=== PATIENT | male | born 1950 | race Caucasian/White ===

== ENCOUNTER → 2016-06-02 | Outpatient (CLI) | payer MEDICARE, MEDICAID ==
[~2016-06-02] MED LIST: /AUGM25TA OR; /FENT50PA TD; FLEXERIL PO; HYDROCODONE PO; OXYCODONE PO; PERC5TAB8 OR; PRED10TA2 OR; PRED5TAB OR; VICO5TAB PO
[2016-06-02 20:05] LABS: ANION GAP 6 MEQ/L (8-16); BLOOD UREA NITROGEN 14 MG/DL (7-18); CALCIUM LEVEL 8.8 MG/DL (8.8-10.2); CARBON DIOXIDE LEVEL 33 MEQ/L (21-32); CHLORIDE LEVEL 99 MEQ/L (98-107); CREATININE FOR GFR 0.97 MG/DL (0.70-1.30); GLOMERULAR FILTRATION RATE > 60.0 (>49); GLUCOSE, FASTING 90 MG/DL (80-110); POTASSIUM SERUM 4.7 MEQ/L (3.5-5.1); SODIUM LEVEL 138 MEQ/L (136-145)
== END ==
LOC: M SMT 14:59
PROVIDERS: ATTEND Nurse Practitioner Family
DX: R31.9 Hematuria, unspecified (principal)
CPT/HCPCS: 36415; 80048; 81001; 87086; 88108; G0463

== ENCOUNTER → 2016-06-09 | Outpatient (CLI) | payer MEDICARE, MEDICAID ==
[~2016-06-09] MED LIST changes: +ISOVUE-370 76% 100ML VIAL (Q9967) As Ordered ONE
--- NOTE | 2016-06-09 15:19 | REP ---
CT STUDY OF THE ABDOMEN AND PELVIS WITHOUT AND WITH IV CONTRAST: CT UROGRAM. HISTORY: Hematuria. COMPARISON STUDY: May 02, 2015. CT CONTRAST DOSE: 100 mL of Isovue-370 is administered intravenously by autoinjector. CT FINDINGS: Preliminary digital allied health professional radiograph demonstrates an infiltrate in the left lung base. Lung window axial CT images confirm this, consistent with pneumonia. It is a little larger, more pronounced than on May 02, 2015, although not new. The liver and the spleen are unremarkable on pre- and postcontrast images. No adrenal lesion is seen. Gallbladder and pancreas have unremarkable appearance. There is no evidence of intrarenal calculus on either side. There is minimal fullness of the intrarenal collecting system, left greater than right. No significant hydronephrosis seen. Ureters describe a normal course to the urinary bladder. Emptying ureteral jets are observed bilaterally. No bladder mass lesion is seen. Heavy vascular calcification is seen in the aorta and its major branches. No bony destructive lesion is seen. There is moderate formed stool in the proximal colon. No obstruction is seen in the gastrointestinal tract. No abdominal wall defect noted. IMPRESSION: 1. Fairly large dense infiltrate in the left lower lobe, consistent with pneumonia. This is more prominent than on the May 02, 2015 prior study. I note that this is described on PET/CT from June 01, 2014. Chronic gradually progressive infiltrate could be a malignancy versus recurrent or persistent pneumonia. 2. No evidence of renal stone, mass, cyst, or significant hydronephrosis. No urinary tract calculus seen. 3. Moderate stool in the colon. No obstructive lesion seen. Signed by Gunner Camara MD 06/09/2016 03:22 P
== END ==
LOC: M RAD 13:41
PROVIDERS: ATTEND Nurse Practitioner Family
DX: R31.9 Hematuria, unspecified (principal); R91.8 Other nonspecific abnormal finding of lung field
CPT/HCPCS: 74178; Q9967

== ENCOUNTER → 2016-06-24 | Outpatient (CLI) | payer MEDICARE, MEDICAID ==
--- NOTE | 2016-06-24 15:15 | REP ---
Clinical: Abnormal chest x-ray. Technique: Axial contrast enhanced images from the thoracic inlet to the upper abdomen using 100 ml Isovue 370 intravenous contrast material with coronal and sagittal re-formations. Comparison: 06/09/2016, 05/02/2015. Findings: Alveolar and reticulonodular infiltrates are appreciated primarily involving the left lower lobe and adjacent posterior left upper lobe with scattered nodular densities and 4.5 cm left lower lobe consolidation/mass which appears to be progressively increased when compared to prior examinations. Left hilar lymph nodes are identified measuring up to 1 cm along with mucus and debris in the left lower lobe bronchi. Remainder of lung chaidez demonstrate chronic emphysematous change. No pleural effusion. No pneumothorax. Atherosclerotic changes to the thoracic aorta and coronary arteries noted without cardiomegaly or pericardial effusion. Upper abdomen is unremarkable. Surrounding musculoskeletal structures demonstrate degenerative changes. Impression: 4.5 cm area of consolidation in the left lower lobe with smaller surrounding nodular densities and diffuse reticulonodular infiltrative pattern. Findings have progressed since 2014. Differential diagnosis would include recurrent area of pneumonia as well as malignancy. Signed by Meir Dominguez MD 06/24/2016 03:07 P
== END ==
LOC: M RAD 14:24
PROVIDERS: ATTEND Family Medicine
DX: R93.8 Abnormal findings on diagnostic imaging of other specified body structures (principal)
CPT/HCPCS: 71260; Q9967

== ENCOUNTER → 2016-07-21 | Outpatient (CLI) | payer MEDICARE, MEDICAID ==
[~2016-07-21] MED LIST changes: +ALBUTEROL SULFATE 2.5 MG/0.5 ML INH NEB SOLN INH ONE; +D5W 1,000 ML IV SCH; +EPINEPHrine 1MG/10ML SYRINGE 1.5IN As Ordered ONE; -ISOVUE-370 76% 100ML VIAL (Q9967) As Ordered ONE; +LEVO25TA5 PO; +LIDOCAINE 1% MDV 20ML VIAL As Ordered ONE; +LIDOCAINE 4% INJ 5 ML AMP As Ordered ONE; +LIDOCAINE 4% INJ 5 ML AMP INH ONE; +LIDOCAINE VISCOUS 2% SOLN 15ML UDC As Ordered ONE; +MIDAZOLAM INJ 2 MG/2 ML VIAL (J2250) As Ordered ONE; +PERC10TA17 PO; +SPIR1AER PO; +SYMB16INH INH; +fentaNYL 100 MCG/2 ML INJECTION (J3010) As Ordered ONE
--- NOTE | 2016-07-21 10:22 | RO ---
DATE OF PROCEDURE: 07/21/2016 PREOPERATIVE DIAGNOSIS: Abnormal chest CT, left lower lobe infiltrate/mass. POSTOPERATIVE DIAGNOSIS: Abnormal chest CT, left lower lobe infiltrate/mass. PROCEDURE: Bronchoscopy with bronchoalveolar lavage and transbronchial biopsies of the left lower lobe of the lung. SURGEON: Dr. Todd Blackwood UX DEVELOPER: None. ANESTHESIA: 6 mg of IV Versed, 75 mg of IV fentanyl and 360 mg of topical lidocaine. FINDINGS: Poolings of secretions in the left mainstem. SPECIMENS OBTAINED: 1. Bronchoalveolar lavage left lower lobe. 2. Transbronchial biopsy left lower lobe. There were no observed complications. A postprocedure chest x-ray is pending. DESCRIPTION OF PROCEDURE: After informed consent was reviewed with the patient, he was brought back to the bronchoscopy suite. The posterior airway was then anesthetized with 4% lidocaine. The left nares was then also anesthetized with lidocaine gel. After adequate anesthetization of the oropharynx, a time-out was performed with two patient identifiers, identifying correct site and correct procedure. Conscious sedation was then initiated with Versed and fentanyl. The P180 bronchoscope was then inserted through the left nares. There were large amounts of thick mucus which were suctioned. There were post radiation changes of the posterior pharynx. The vocal cords did approximate normally. 1% lidocaine was used to anesthetize the vocal cords. The scope was then advanced into the airway. Trachea was midline. Of note, no significant cough reflex upon entering the trachea. All airways were anesthetized with lidocaine. It was noted that all the secretions pooled in the left lower lobe and left mainstem bronchus. All airways were suctioned. RB 1 through 10 10 was suctioned. RV 1 through 3 was normal without endobronchial lesions; however, there was significant banding pitting. No endobronchial lesions RV 4 through 10. Right mainstem bronchus was normal. Left mainstem bronchus was otherwise normal except for the pooling of secretions. LB 1 through 10 was normal without endobronchial lesions. I then advanced the scope into the left lower lobe posterior segment and performed bronchoalveolar lavage. After this was performed, transbronchial biopsies were taken of the left lower lobe in the posterior and lateral basal segments. After all this was obtained and hemostasis was assured, the bronchoscope was removed. Total fluoro time was 56 seconds. No observed complications. A postprocedure chest x-ray is pending. [facility]
[2016-07-21 10:51] VITALS: BP 103/62
--- NOTE | 2016-07-21 11:37 | REP ---
Portable chest x-ray: Two sitting AP views. History: Status post bronchoscopy. Question pneumothorax. Findings: There is an infiltrate behind the heart in the left base again noted. There is no evidence of pneumothorax or hydrothorax. No pneumomediastinum is seen. Impression: Left base infiltrate unchanged. No pneumothorax seen. Signed by Gunner Camara MD 07/21/2016 12:28 P
== END | disposition home or self-care (01) ==
LOC: M OPP 08:31
PROVIDERS: ATTEND Internal Medicine Pulmonary Disease
DX: R91.8 Other nonspecific abnormal finding of lung field (principal); E03.9 Hypothyroidism, unspecified; J43.1 Panlobular emphysema; K21.9 Gastro-esophageal reflux disease without esophagitis; Z87.891 Personal history of nicotine dependence; Z91.040 Latex allergy status; Z80.1 Family history of malignant neoplasm of trachea, bronchus and lung
CPT/HCPCS: 31624; 71010; 76000; 87070; 87205; 88108; 88305; 88313; 94640; J2250; J3010

== ENCOUNTER → 2016-09-16 | Outpatient (CLI) | payer MEDICARE, MEDICAID ==
[~2016-09-16] MED LIST changes: -ALBUTEROL SULFATE 2.5 MG/0.5 ML INH NEB SOLN INH ONE; -D5W 1,000 ML IV SCH; -EPINEPHrine 1MG/10ML SYRINGE 1.5IN As Ordered ONE; +FENT25PA TD; -LIDOCAINE 1% MDV 20ML VIAL As Ordered ONE; -LIDOCAINE 4% INJ 5 ML AMP As Ordered ONE; -LIDOCAINE 4% INJ 5 ML AMP INH ONE; -LIDOCAINE VISCOUS 2% SOLN 15ML UDC As Ordered ONE; -MIDAZOLAM INJ 2 MG/2 ML VIAL (J2250) As Ordered ONE; +SPIR1CAP INH; +[UNRECOGNIZED DRUG - CODE] GT; -fentaNYL 100 MCG/2 ML INJECTION (J3010) As Ordered ONE
--- NOTE | 2016-09-16 18:11 | REP ---
CT CHEST WITHOUT CONTRAST: REASON: Followup abnormal 4.5 cm sized opacity in the left lower lobe felt to have increased in sized from lung base images obtained 05/02/2015 which have been reviewed along with all prior chest CT's. The lack of intravenous contrast decreases the sensitivity of the exam. Prominent nonenlarged mediastinal and hilar lymph nodes are again noted unchanged from 06/24/2016. There are no pleural or pericardial effusions. The imaged upper abdomen has changed from the prior images of 06/24/2016 in that there is now a PEG tube. The osseous structures are unchanged. Evaluation of the lung chaidez again show a heavy area of consolidation with surrounding patchy opacities and asymmetric densities in the left lower lobe. The appearance of which has shown some improvement compared to the latest prior of 06/24/2016. Other scattered patch opacities are seen throughout the lung chaidez and in conjunction with cylindrical bronchiectasis in the upper and lower lobes bilaterally. No new abnormal nodules seem to have developed. New asymmetric densities have developed in the inferior right middle lobe compared to the latest. IMPRESSION: 1. Seemingly improved left lower lobe opacity as described above. 2. Bronchiectasis. 3. Chronic lung field changes. 4. New inferior right middle lobe opacities. Continued followup is recommended. There is no revised Fleischner's society criteria on the recommendation for followup of such abnormalities. Signed by Vincent Murray DO 09/17/2016 10:20 A
== END ==
LOC: M RAD 10:37
PROVIDERS: ATTEND Internal Medicine Pulmonary Disease
DX: R91.8 Other nonspecific abnormal finding of lung field (principal)

== ENCOUNTER → 2016-09-29 | Outpatient (REF) | payer MEDICARE, MEDICAID | LOC: M LAB REF 17:00 | PROVIDERS: ATTEND Internal Medicine Pulmonary Disease | DX: R05 Cough (principal) ==

== ENCOUNTER → 2016-11-10 | Outpatient (CLI) | payer MEDICARE, MEDICAID ==
[~2016-11-10] MED LIST changes: +ALBU83IN INH; +FULLMIS XX; -PERC10TA17 PO; +PERC10TA26 PO; +PRED20TA PO
--- NOTE | 2016-11-10 11:13 | REP ---
Clinical: Cough. Technique: PA and lateral. Comparison: 08/17/2016. Findings: Mediastinum and cardiac silhouette are normal. Lung chaidez demonstrate chronic interstitial changes with left lower lobe/retrocardiac infiltrate similar to prior examination. No effusion, or pneumothorax. Skeletal structures intact. Impression: Chronic interstitial changes and left lower lobe/retrocardiac infiltrate similar to prior examination. If the patient remains symptomatic consider chest CT with contrast for further investigation.
== END ==
LOC: M CLY 09:42
PROVIDERS: ATTEND Family Medicine
DX: R05 Cough (principal)

== ENCOUNTER → 2016-11-21 | Outpatient (REF) | payer MEDICARE, MEDICAID ==
[2016-11-21 20:14] LABS: THYROXINE (T4) 9.5 UG/DL (4.5-12.0)
[2016-11-21 21:32] LABS: BASO # 0.1 K/mm3 (0.0-0.2); BASO % 1.3 % (0.0-1.0); EOS # 0.1 K/mm3 (0.0-0.50); EOS % 1.8 % (0.0-3.0); LARGE UNSTAINED CELL # 0.2 K/mm3 (0.0-0.4); LARGE UNSTAINED CELL % 2.7 % (0.0-4.0); LYMPH # 0.4 K/mm3 (1.5-4.5); LYMPH % 7.6 % (24.0-44.0); MEAN CORPUSCULAR HEMOGLOBIN 32.4 pg (27.0-33.0); MEAN CORPUSCULAR HGB CONC 32.5 g/dl (32.0-36.5); MEAN CORPUSCULAR VOLUME 99.9 fl (80.0-96.0); MONO # 0.6 K/mm3 (0.0-0.8); MONO % 11.3 % (0.0-5.0); NEUTROPHILS # 4.1 K/mm3 (1.8-7.7); NEUTROPHILS % 75.3 % (36.0-66.0); PLATELET COUNT, AUTOMATED 200 k/mm3 (150-450); RED CELL DISTRIBUTION WIDTH 13.9 % (11.5-14.5); WHITE BLOOD COUNT 5.4 K/mm3 (4.0-10.0)
== END ==
LOC: M SFHCCLAY 12:06
PROVIDERS: ATTEND Family Medicine
DX: J44.9 Chronic obstructive pulmonary disease, unspecified (principal); E03.9 Hypothyroidism, unspecified

== ENCOUNTER → 2016-11-21 | Outpatient (CLI) | payer MEDICARE, MEDICAID ==
--- NOTE | 2016-11-21 14:14 | REP ---
Chest x-ray: Two views. History: Cough. Acute exacerbation of chronic disease. Comparison study: November 10, 2016. Findings: The lungs are symmetrically aerated and free of infiltrate. The pleural angles are sharp. Heart size is normal. The aorta is calcific and a little tortuous. Pulmonary vascular markings are not increased. There are some degenerative changes in the thoracic spine. Impression: No active disease.
== END ==
LOC: M CLY 13:13
PROVIDERS: ATTEND Family Medicine
DX: J44.1 Chronic obstructive pulmonary disease with (acute) exacerbation (principal); E03.9 Hypothyroidism, unspecified
CPT/HCPCS: 71020; 84436; 84443; 84480; 85025; G0463

== ENCOUNTER 2016-12-19 07:52 | Emergency (ER) | payer MEDICARE, MEDICAID ==
[~2016-12-19] VITALS: Ht 170.2 cm; Wt 59.5 kg
[~2016-12-19 07:52] MED LIST changes: -ALBU83IN INH; -FULLMIS XX; -PRED20TA PO
[2016-12-19] MEDS ORDERED: ALBUTEROL SULFATE 2.5 MG/0.5 ML INH NEB SOLN INH ONE (08:30)
[2016-12-19] MEDS ORDERED: IPRATROPIUM 0.5MG/ALBUTEROL 2.5MG INH SOL UD 3ML (DUONEB)(J7620) NEB ONE (08:30)
[2016-12-19 08:36] LABS: BASO % 0.8 % (0.0-1.0); EOS # 0.3 K/mm3 (0.0-0.50); EOS % 4.5 % (0.0-3.0); LARGE UNSTAINED CELL # 0.1 K/mm3 (0.0-0.4); LARGE UNSTAINED CELL % 1.8 % (0.0-4.0); LYMPH # 0.7 K/mm3 (1.5-4.5); MEAN CORPUSCULAR HEMOGLOBIN 32.4 pg (27.0-33.0); MEAN CORPUSCULAR HGB CONC 33.1 g/dl (32.0-36.5); MONO # 0.5 K/mm3 (0.0-0.8); MONO % 7.4 % (0.0-5.0); NEUTROPHILS # 5.1 K/mm3 (1.8-7.7); NEUTROPHILS % 76.5 % (36.0-66.0); PLATELET COUNT, AUTOMATED 155 k/mm3 (150-450); RED CELL DISTRIBUTION WIDTH 14.2 % (11.5-14.5); WHITE BLOOD COUNT 6.6 K/mm3 (4.0-10.0)
--- NOTE | 2016-12-19 08:40 | REP ---
Chest one-view HISTORY: Cough Comparison: 11/21/2016 Linear densities are present in the left lower lobe consistent with scar. The right lung is clear. The heart is normal in size. The pulmonary vasculature is normal in appearance. Impression: Left lower lobe scar Signed by Riki La MD 12/19/2016 08:32 A
[2016-12-19 08:41] LABS: ALBUMIN 3.5 GM/DL (3.2-5.2); ALBUMIN/GLOBULIN RATIO 0.95 (1.00-1.93); ALKALINE PHOSPHATASE 64 U/L (45-117); ALT/SGPT 22 U/L (12-78); ANION GAP 4 MEQ/L (8-16); AST/SGOT 20 U/L (15-37); BILIRUBIN,DIRECT < 0.1 MG/DL (0.0-0.2); BILIRUBIN,TOTAL 0.3 MG/DL (0.2-1.0); BLOOD UREA NITROGEN 13 MG/DL (7-18); CARBON DIOXIDE LEVEL 35 MEQ/L (21-32); CHLORIDE LEVEL 100 MEQ/L (98-107); CREATININE FOR GFR 0.79 MG/DL (0.70-1.30); GLOMERULAR FILTRATION RATE > 60.0 (>49); GLUCOSE, FASTING 101 MG/DL (80-110); POTASSIUM SERUM 4.2 MEQ/L (3.5-5.1); SODIUM LEVEL 139 MEQ/L (136-145); TOTAL PROTEIN 7.2 GM/DL (6.4-8.2)
[2016-12-19] MEDS ORDERED: ACETAMINOPHEN TAB 650MG DOSE (2X325MG) PO ONE (10:45)
[2016-12-19] MEDS ORDERED: ACETAMINOPHEN SUSP DYE FREE 160 MG/5 ML UDC PO ONE (11:00)
[2016-12-19] MEDS ORDERED: PRED20TA PO (11:10)
[2016-12-19] MEDS ORDERED: ALBU83IN INH (11:11)
[2016-12-19] MEDS ORDERED: FULLMIS XX (11:12)
[2016-12-19 11:30] VITALS: BP 121/67
--- NOTE | 2016-12-19 19:48 | ECGEPIP ---
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
== END 2016-12-19 11:34 | disposition home or self-care (01) ==
LOC: M ED 07:52
DX: K22.9 Disease of esophagus, unspecified (principal); R06.00 Dyspnea, unspecified; J44.1 Chronic obstructive pulmonary disease with (acute) exacerbation; Z85.9 Personal history of malignant neoplasm, unspecified; Z93.1 Gastrostomy status; Z87.891 Personal history of nicotine dependence; Z79.899 Other long term (current) drug therapy; Z91.040 Latex allergy status

== ENCOUNTER → 2016-12-22 | Outpatient (CLI) | payer MEDICARE, MEDICAID ==
[~2016-12-22] MED LIST changes: +ALBU83IN INH; +FULLMIS XX; +PRED20TA PO
--- NOTE | 2016-12-22 09:41 | REP ---
CT of the chest without IV contrast: Comparisons are 05/02/2015, 06/24/2016, and 09/16/2016. The focal density in the left lower lobe is significantly decreased in size from all prior studies. The lung chaidez otherwise clear. There are findings compatible with mild bronchiectasis bilaterally, unchanged. There is no mediastinal or axillary adenopathy. The study is insensitive for hilar adenopathy in the absence of IV contrast. Thoracic aorta is unremarkable except for occasional calcified atheroma. Cardiac size normal. The visualized upper abdominal contents are unremarkable. There is no adrenal mass. A peg tube is incidentally noted. This is unchanged. Impression: The density in the left lower lobe continues to decrease in size. There are other chronic stable changes as described. Signed by Sunny Ortega MD 12/22/2016 09:32 A
== END ==
LOC: M RAD 08:49
PROVIDERS: ATTEND Internal Medicine Pulmonary Disease
DX: R91.8 Other nonspecific abnormal finding of lung field (principal); R05 Cough; Z85.819 Personal history of malignant neoplasm of unspecified site of lip, oral cavity, and pharynx

== ENCOUNTER 2017-03-27 10:21 | Emergency (ER) | payer MEDICARE, MEDICAID ==
[~2017-03-27] VITALS: Ht 170.2 cm; Wt 61.8 kg
[2017-03-27] MEDS ORDERED: ESCI10TA2 PO (10:36)
[2017-03-27] MEDS ORDERED: MORPHINE 10 MG/ML 1ML VIAL IM ONE (11:45)
[2017-03-27] MEDS ORDERED: PERC10TA26 PO (12:55)
[2017-03-27] MEDS ORDERED: DOXY100C37 PO (12:55)
[2017-03-27 13:04] VITALS: BP 138/76
== END 2017-03-27 13:07 | disposition home or self-care (01) ==
LOC: M ED 10:21
DX: T85.518A Breakdown (mechanical) of other gastrointestinal prosthetic devices, implants and grafts, initial encounter (principal); Y92.9 Unspecified place or not applicable; Y93.9 Activity, unspecified; J44.9 Chronic obstructive pulmonary disease, unspecified; E78.5 Hyperlipidemia, unspecified; M54.9 Dorsalgia, unspecified; F32.9 Major depressive disorder, single episode, unspecified; Z85.810 Personal history of malignant neoplasm of tongue; E03.9 Hypothyroidism, unspecified; Z87.891 Personal history of nicotine dependence; Z79.899 Other long term (current) drug therapy; Z91.040 Latex allergy status

== ENCOUNTER 2017-05-30 19:27 | Emergency (ER) | payer MEDICARE, MEDICAID ==
[2017-05-30 20:40] LABS: BASO % 0.2 % (0.0-1.0); HEMOGLOBIN 11.7 g/dl (14.0-18.0); IMMATURE GRANULOCYTE % 0.4 % (0-0); LYMPH # 0.4 10^3/uL (1.5-4.5); LYMPH % 3.6 % (24.0-44.0); MEAN CORPUSCULAR HEMOGLOBIN 31.7 pg (27.0-33.0); MEAN CORPUSCULAR HGB CONC 31.6 g/dl (32.0-36.5); MEAN CORPUSCULAR VOLUME 100.3 fl (80.0-96.0); MONO % 9.1 % (0.0-5.0); NEUTROPHILS # 9.6 10^3/uL (1.8-7.7); NEUTROPHILS % 86.7 % (36.0-66.0); PLATELET COUNT, AUTOMATED 179 10^3/uL (150-450); RED BLOOD COUNT 3.69 10^6/uL (4.30-6.10); RED CELL DISTRIBUTION WIDTH 14.3 % (11.5-14.5)
[2017-05-30 20:57] LABS: AMMONIA 15 uMOL/L (<32)
[2017-05-30 20:58] LABS: ALBUMIN 3.5 GM/DL (3.2-5.2); ALBUMIN/GLOBULIN RATIO 0.95 (1.00-1.93); ALKALINE PHOSPHATASE 64 U/L (45-117); ALT/SGPT 28 U/L (12-78); ANION GAP 5 MEQ/L (8-16); AST/SGOT 29 U/L (7-37); BILIRUBIN,DIRECT < 0.1 MG/DL (0.0-0.2); BILIRUBIN,TOTAL 0.3 MG/DL (0.2-1.0); BLOOD UREA NITROGEN 33 MG/DL (7-18); CALCIUM LEVEL 9.1 MG/DL (8.8-10.2); CARBON DIOXIDE LEVEL 35 MEQ/L (21-32); CHLORIDE LEVEL 96 MEQ/L (98-107); CREATININE FOR GFR 1.56 MG/DL (0.70-1.30); ETHYL ALCOHOL (ETHANOL) < 0.003 % (0.000-0.010); FREE THYROXINE INDEX 2.7 % (1.4-3.8); GLOMERULAR FILTRATION RATE 47.8 (>49); GLUCOSE, FASTING 142 MG/DL (80-110); SODIUM LEVEL 136 MEQ/L (136-145); T UPTAKE 34 % (33-40); THYROXINE (T4) 7.8 UG/DL (4.5-12.0); TOTAL PROTEIN 7.2 GM/DL (6.4-8.2)
[2017-05-30 20:59] LABS: POTASSIUM SERUM 5.3 MEQ/L (3.5-5.1)
[2017-05-30] MEDS: NS 500 ML IV ×2 (21:04→22:04)
[2017-05-30] MEDS: MORPHINE 2 MG/ML 1ML SYRINGE IV (22:05)
[2017-05-30] MEDS: SOD POLYSTYRENE SULFONATE SUSP 15 GM/60 ML UD PO (22:11)
== END 2017-05-30 23:51 | disposition home or self-care (01) ==
LOC: M ED 19:27
DX: E86.0 Dehydration (principal); E87.6 Hypokalemia; R25.1 Tremor, unspecified; J44.9 Chronic obstructive pulmonary disease, unspecified; J45.909 Unspecified asthma, uncomplicated; F32.9 Major depressive disorder, single episode, unspecified; E03.9 Hypothyroidism, unspecified; Z93.1 Gastrostomy status; Z87.891 Personal history of nicotine dependence; Z79.899 Other long term (current) drug therapy; Z91.040 Latex allergy status
CPT/HCPCS: 70450

== ENCOUNTER → 2017-06-01 | Outpatient (REF) | payer MEDICARE, MEDICAID ==
[2017-06-02 11:52] LABS: BASO % 0.5 % (0.0-1.0); EOS # 0.1 10^3/uL (0.0-0.50); HEMATOCRIT 40.2 % (42.0-52.0); HEMOGLOBIN 12.6 g/dl (14.0-18.0); IMMATURE GRANULOCYTE % 0.3 % (0-0); LYMPH # 0.8 10^3/uL (1.5-4.5); LYMPH % 9.9 % (24.0-44.0); MEAN CORPUSCULAR HEMOGLOBIN 30.8 pg (27.0-33.0); MEAN CORPUSCULAR HGB CONC 31.3 g/dl (32.0-36.5); MEAN CORPUSCULAR VOLUME 98.3 fl (80.0-96.0); MONO # 1.2 10^3/uL (0.0-0.8); MONO % 14.6 % (0.0-5.0); NEUTROPHILS # 5.8 10^3/uL (1.8-7.7); NEUTROPHILS % 73.7 % (36.0-66.0); PLATELET COUNT, AUTOMATED 194 10^3/uL (150-450); RED BLOOD COUNT 4.09 10^6/uL (4.30-6.10); RED CELL DISTRIBUTION WIDTH 13.9 % (11.5-14.5); WHITE BLOOD COUNT 7.9 10^3/uL (4.0-10.0)
[2017-06-02 12:16] LABS: ALBUMIN 3.8 GM/DL (3.2-5.2); ALBUMIN/GLOBULIN RATIO 1.15 (1.00-1.93); ALKALINE PHOSPHATASE 72 U/L (45-117); ALT/SGPT 29 U/L (12-78); ANION GAP 3 MEQ/L (8-16); AST/SGOT 30 U/L (7-37); BILIRUBIN,TOTAL 0.6 MG/DL (0.2-1.0); BLOOD UREA NITROGEN 14 MG/DL (7-18); CARBON DIOXIDE LEVEL 37 MEQ/L (21-32); CHLORIDE LEVEL 98 MEQ/L (98-107); CREATININE FOR GFR 0.81 MG/DL (0.70-1.30); GLOMERULAR FILTRATION RATE > 60.0 (>49); GLUCOSE, FASTING 103 MG/DL (70-100); IRON (FE) 42 UG/DL (65-175); POTASSIUM SERUM 4.8 MEQ/L (3.5-5.1); SODIUM LEVEL 138 MEQ/L (136-145); TOTAL PROTEIN 7.1 GM/DL (6.4-8.2)
[2017-06-02 12:34] LABS: FOLATE 19.3 NG/ML (>5.4); VITAMIN B12 LEVEL 1425 PG/ML (247-911)
== END ==
LOC: M SFHCCLAY 13:54
DX: D64.9 Anemia, unspecified (principal); E87.5 Hyperkalemia; E03.9 Hypothyroidism, unspecified
CPT/HCPCS: 82746

== ENCOUNTER 2017-07-15 11:04 | Inpatient (IN) | payer MEDICARE, MEDICAID ==
[2017-07-15 12:06] LABS: BEDSIDE GLUCOSE 148 MG/DL (80-115)
[2017-07-15 12:10] LABS: BASO % 0.1 % (0.0-1.0); HEMATOCRIT 38.8 % (42.0-52.0); IMMATURE GRANULOCYTE % 0.5 % (0-3.0); LYMPH # 0.4 10^3/uL (1.5-4.5); LYMPH % 4.2 % (24.0-44.0); MEAN CORPUSCULAR HEMOGLOBIN 30.2 pg (27.0-33.0); MEAN CORPUSCULAR HGB CONC 30.9 g/dl (32.0-36.5); MEAN CORPUSCULAR VOLUME 97.7 fl (80.0-96.0); MONO # 1.2 10^3/uL (0.0-0.8); MONO % 11.4 % (0.0-5.0); NEUTROPHILS # 8.7 10^3/uL (1.8-7.7); NEUTROPHILS % 83.8 % (36.0-66.0); PLATELET COUNT, AUTOMATED 148 10^3/uL (150-450); RED BLOOD COUNT 3.97 10^6/uL (4.30-6.10); RED CELL DISTRIBUTION WIDTH 14.1 % (11.5-14.5); WHITE BLOOD COUNT 10.4 10^3/uL (4.0-10.0)
[2017-07-15 12:39] LABS: ANION GAP 10 MEQ/L (8-16); BLOOD UREA NITROGEN 47 MG/DL (7-18); CALCIUM LEVEL 9.4 MG/DL (8.8-10.2); CARBON DIOXIDE LEVEL 32 MEQ/L (21-32); CHLORIDE LEVEL 95 MEQ/L (98-107); CREATININE FOR GFR 3.33 MG/DL (0.70-1.30); GLOMERULAR FILTRATION RATE 19.9 (>49); GLUCOSE, FASTING 137 MG/DL (70-100); SODIUM LEVEL 137 MEQ/L (136-145)
[2017-07-15 12:40] LABS: POTASSIUM SERUM 5.4 MEQ/L (3.5-5.1)
[2017-07-15 12:41] LABS: LACTIC ACID SEPSIS PROTOCOL 3.8 MMOL/L (0.4-2.0)
[2017-07-15] MEDS: NS 1,000 ML IV ×4 (13:11→16:11)
[2017-07-15] MEDS: HEPARIN SOD (PORCINE) 5000 UNITS/ML VIAL SC ×2 (16:02→16:11)
[2017-07-15] MEDS: CALCIUM GLUCONATE 1,000 MG in D5W MINI-BAG PLUS 100 ML IV (16:03)
[2017-07-15] MEDS: SOD POLYSTYRENE SULFONATE SUSP 15 GM/60 ML UD PO (17:42)
[2017-07-15] MEDS: PERCOCET 5MG/325MG TAB PO ×2 (17:42→21:25)
[2017-07-15] MEDS ORDERED: PILL CUTTER/CRUSHER XX (17:45)
[2017-07-15 19:05] LABS: CK-MB VALUE MASS 22.2 NG/ML (0.0-3.6); CPK CREATINE PHOSPHOKINASE 1703 U/L (39-308)
[2017-07-15 19:24] LABS: TROPONIN I 2.45 NG/ML (< 0.10)
[2017-07-15] MEDS: SYMBICORT 80/4.5MCG INHALER 6GM INH (20:21)
[2017-07-15] MEDS: ONDANSETRON 4MG/2ML VIAL (J2405) IV (20:48)
[2017-07-15] MEDS: ESCITALOPRAM OXALATE 10 MG TAB (LEXAPRO) PO (21:32)
[2017-07-16] MEDS: ALBUTEROL SULFATE 2.5 MG/0.5 ML INH NEB SOLN INH ×2 (00:03→23:51)
[2017-07-16] MEDS: ACETAMINOPHEN TAB 650MG DOSE (2X325MG) PO (00:23)
[2017-07-16 00:38] LABS: ANION GAP 3 MEQ/L (8-16); BLOOD UREA NITROGEN 42 MG/DL (7-18); CALCIUM LEVEL 8.7 MG/DL (8.8-10.2); CARBON DIOXIDE LEVEL 33 MEQ/L (21-32); CHLORIDE LEVEL 104 MEQ/L (98-107); CREATININE FOR GFR 1.57 MG/DL (0.70-1.30); GLOMERULAR FILTRATION RATE 47.4 (>49); GLUCOSE, FASTING 119 MG/DL (70-100); POTASSIUM SERUM 4.9 MEQ/L (3.5-5.1); SODIUM LEVEL 140 MEQ/L (136-145)
[2017-07-16 00:42] LABS: TROPONIN I 1.86 NG/ML (< 0.10)
[2017-07-16 00:44] LABS: CK-MB VALUE MASS 16.7 NG/ML (0.0-3.6)
[2017-07-16 00:49] LABS: CPK CREATINE PHOSPHOKINASE 1344 U/L (39-308); MB/CK RELATIVE INDEX 1.24 (< OR =4)
[2017-07-16] MEDS: PERCOCET 5MG/325MG TAB PO ×6 (04:21→23:30)
[2017-07-16] MEDS: LEVOTHYROXINE 100MCG TABLET (0.1MG) PO (05:18)
[2017-07-16] MEDS: HEPARIN SOD (PORCINE) 5000 UNITS/ML VIAL SC ×3 (05:18→22:24)
[2017-07-16 05:32] LABS: BASO % 0.2 % (0.0-1.0); HEMATOCRIT 33.7 % (42.0-52.0); HEMOGLOBIN 10.8 g/dl (14.0-18.0); IMMATURE GRANULOCYTE % 0.4 % (0-3.0); LYMPH # 0.6 10^3/uL (1.5-4.5); MEAN CORPUSCULAR HEMOGLOBIN 30.4 pg (27.0-33.0); MEAN CORPUSCULAR VOLUME 94.9 fl (80.0-96.0); MONO # 1.3 10^3/uL (0.0-0.8); MONO % 11.9 % (0.0-5.0); NEUTROPHILS % 82.5 % (36.0-66.0); PLATELET COUNT, AUTOMATED 121 10^3/uL (150-450); RED BLOOD COUNT 3.55 10^6/uL (4.30-6.10); RED CELL DISTRIBUTION WIDTH 14.2 % (11.5-14.5)
[2017-07-16 05:57] LABS: ANION GAP 4 MEQ/L (8-16); BLOOD UREA NITROGEN 37 MG/DL (7-18); CALCIUM LEVEL 8.5 MG/DL (8.8-10.2); CARBON DIOXIDE LEVEL 33 MEQ/L (21-32); CHLORIDE LEVEL 103 MEQ/L (98-107); CREATININE FOR GFR 1.26 MG/DL (0.70-1.30); GLOMERULAR FILTRATION RATE > 60.0 (>49); GLUCOSE, FASTING 130 MG/DL (70-100); POTASSIUM SERUM 4.4 MEQ/L (3.5-5.1); SODIUM LEVEL 140 MEQ/L (136-145)
[2017-07-16] MEDS: TIOTROPIUM INHALER/CAPSULE (SPIRIVA) INH (07:26)
[2017-07-16] MEDS: SYMBICORT 80/4.5MCG INHALER 6GM INH (07:26)
[2017-07-16] MEDS: ESCITALOPRAM OXALATE 10 MG TAB (LEXAPRO) PO (09:45)
[2017-07-16 11:52] LABS: CK-MB VALUE MASS 10.6 NG/ML (0.0-3.6); CPK CREATINE PHOSPHOKINASE 947 U/L (39-308); MAGNESIUM LEVEL 2.4 MG/DL (1.8-2.4); MB/CK RELATIVE INDEX 1.11 (< OR =4); TROPONIN I 1.21 NG/ML (< 0.10)
[2017-07-16] MEDS: NS 1,000 ML IV (12:21)
[2017-07-16] MEDS: MORPHINE 4 MG/ML 1ML VIAL (J2270) IV ×2 (12:22→19:27)
[2017-07-16] MEDS: LevoFLOXacin IV 500 MG in APPROPRIATE DILUENT 1 EA IV (12:22)
[2017-07-16 17:37] LABS: CPK CREATINE PHOSPHOKINASE 841 U/L (39-308); TROPONIN I 1.13 NG/ML (< 0.10)
[2017-07-16 17:38] LABS: CK-MB VALUE MASS 8.1 NG/ML (0.0-3.6); MB/CK RELATIVE INDEX 0.96 (< OR =4)
[2017-07-16] MEDS: ASPIRIN 325 MG TAB PO (19:25)
[2017-07-16] MEDS: ATORVASTATIN 20 MG TAB PO (19:26)
[2017-07-17] MEDS: MORPHINE 4 MG/ML 1ML VIAL (J2270) IV ×4 (00:54→11:22)
[2017-07-17 00:57] LABS: CK-MB VALUE MASS 5.1 NG/ML (0.0-3.6); CPK CREATINE PHOSPHOKINASE 637 U/L (39-308); TROPONIN I 0.98 NG/ML (< 0.10)
[2017-07-17] MEDS: ACETAMINOPHEN TAB 650MG DOSE (2X325MG) PO (02:42)
[2017-07-17 05:14] LABS: BASO % 0.3 % (0.0-1.0); EOS % 0.2 % (0.0-3.0); HEMATOCRIT 35.5 % (42.0-52.0); HEMOGLOBIN 11.5 g/dl (14.0-18.0); IMMATURE GRANULOCYTE % 0.3 % (0-3.0); LYMPH # 0.5 10^3/uL (1.5-4.5); LYMPH % 5.1 % (24.0-44.0); MEAN CORPUSCULAR HGB CONC 32.4 g/dl (32.0-36.5); MEAN CORPUSCULAR VOLUME 95.7 fl (80.0-96.0); MONO # 1.2 10^3/uL (0.0-0.8); MONO % 12.6 % (0.0-5.0); NEUTROPHILS # 7.7 10^3/uL (1.8-7.7); NEUTROPHILS % 81.5 % (36.0-66.0); PLATELET COUNT, AUTOMATED 121 10^3/uL (150-450); RED BLOOD COUNT 3.71 10^6/uL (4.30-6.10); RED CELL DISTRIBUTION WIDTH 14.2 % (11.5-14.5); WHITE BLOOD COUNT 9.5 10^3/uL (4.0-10.0)
[2017-07-17] MEDS: HEPARIN SOD (PORCINE) 5000 UNITS/ML VIAL SC ×3 (05:18→21:54)
[2017-07-17] MEDS: LEVOTHYROXINE 100MCG TABLET (0.1MG) PO (05:18)
[2017-07-17] MEDS: ONDANSETRON 4MG/2ML VIAL (J2405) IV (05:28)
[2017-07-17 05:30] LABS: ANION GAP 5 MEQ/L (8-16); BLOOD UREA NITROGEN 22 MG/DL (7-18); CALCIUM LEVEL 8.4 MG/DL (8.8-10.2); CARBON DIOXIDE LEVEL 33 MEQ/L (21-32); CHLORIDE LEVEL 103 MEQ/L (98-107); CPK CREATINE PHOSPHOKINASE 571 U/L (39-308); CREATININE FOR GFR 0.75 MG/DL (0.70-1.30); GLOMERULAR FILTRATION RATE > 60.0 (>49); GLUCOSE, FASTING 131 MG/DL (70-100); SODIUM LEVEL 141 MEQ/L (136-145); TROPONIN I 1.02 NG/ML (< 0.10)
[2017-07-17 05:35] LABS: CK-MB VALUE MASS 4.5 NG/ML (0.0-3.6); MB/CK RELATIVE INDEX 0.78 (< OR =4)
[2017-07-17] MEDS: PERCOCET 5MG/325MG TAB PO ×3 (06:36→20:39)
[2017-07-17] MEDS: TIOTROPIUM INHALER/CAPSULE (SPIRIVA) INH (07:13)
[2017-07-17] MEDS: SYMBICORT 80/4.5MCG INHALER 6GM INH (07:13)
[2017-07-17] MEDS: ASPIRIN 325 MG TAB PO (11:23)
[2017-07-17] MEDS: METOPROLOL TART 12.5 MG PER 1/2 TAB PO ×2 (11:23→20:38)
[2017-07-17] MEDS: ATORVASTATIN 20 MG TAB PO (11:23)
[2017-07-17] MEDS: ESCITALOPRAM OXALATE 10 MG TAB (LEXAPRO) PO (11:24)
[2017-07-17] MEDS: TAMSULOSIN 0.4 MG CAP PO (11:24)
[2017-07-17] MEDS: LevoFLOXacin IV 500 MG in APPROPRIATE DILUENT 1 EA IV (11:25)
[2017-07-17] MEDS: amLODIPine 5 MG TAB PO (11:25)
[2017-07-17] MEDS ORDERED: FENTANYL REMOVAL DOCUMENTATION MISC XX (14:15)
[2017-07-17] MEDS: MOM 30ML SUSPENSION UDC PEG (14:40)
[2017-07-17] MEDS: fentaNYL 25 MCG/HR PATCH TOP (14:42)
[2017-07-17] MEDS: DOCUSATE SOD LIQ 100MG/10ML UDC GT (20:37)
[2017-07-17] MEDS: TICAGRELOR 90 MG TABLET (BRILINTA) PO (21:00)
[2017-07-17] MEDS: ALBUTEROL SULFATE 2.5 MG/0.5 ML INH NEB SOLN INH (23:31)
[2017-07-18] MEDS: PERCOCET 5MG/325MG TAB PO ×4 (01:17→18:13)
[2017-07-18] MEDS: RAMELTEON 8 MG TAB (ROZEREM) PO (01:27)
[2017-07-18] MEDS: guaiFENesin SYRUP 200 MG/10 ML UDC PO (01:37)
[2017-07-18 04:17] LABS: BASO % 0.3 % (0.0-1.0); EOS % 0.2 % (0.0-3.0); HEMATOCRIT 35.1 % (42.0-52.0); HEMOGLOBIN 11.9 g/dl (14.0-18.0); IMMATURE GRANULOCYTE % 0.6 % (0-3.0); LYMPH # 0.4 10^3/uL (1.5-4.5); LYMPH % 4.7 % (24.0-44.0); MEAN CORPUSCULAR HEMOGLOBIN 30.8 pg (27.0-33.0); MEAN CORPUSCULAR HGB CONC 33.9 g/dl (32.0-36.5); MEAN CORPUSCULAR VOLUME 90.9 fl (80.0-96.0); MONO # 1.1 10^3/uL (0.0-0.8); MONO % 12.1 % (0.0-5.0); NEUTROPHILS # 7.3 10^3/uL (1.8-7.7); NEUTROPHILS % 82.1 % (36.0-66.0); PLATELET COUNT, AUTOMATED 122 10^3/uL (150-450); RED BLOOD COUNT 3.86 10^6/uL (4.30-6.10); RED CELL DISTRIBUTION WIDTH 13.6 % (11.5-14.5); WHITE BLOOD COUNT 8.9 10^3/uL (4.0-10.0)
[2017-07-18 04:42] LABS: ANION GAP 5 MEQ/L (8-16); BLOOD UREA NITROGEN 13 MG/DL (7-18); CALCIUM LEVEL 8.2 MG/DL (8.8-10.2); CARBON DIOXIDE LEVEL 33 MEQ/L (21-32); CHLORIDE LEVEL 98 MEQ/L (98-107); CHOLESTEROL LEVEL 116 MG/DL (<200); CREATININE FOR GFR 0.68 MG/DL (0.70-1.30); GLOMERULAR FILTRATION RATE > 60.0 (>49); GLUCOSE, FASTING 160 MG/DL (70-100); HDL CHOLESTEROL 50 MG/DL (>40); NON-HDL-C 66 MG/DL; POTASSIUM SERUM 3.4 MEQ/L (3.5-5.1); SODIUM LEVEL 136 MEQ/L (136-145); TRIGLYCERIDES LEVEL 60 MG/DL (<150)
[2017-07-18] MEDS: HEPARIN SOD (PORCINE) 5000 UNITS/ML VIAL SC ×3 (05:47→21:18)
[2017-07-18] MEDS: LEVOTHYROXINE 100MCG TABLET (0.1MG) PO (05:47)
[2017-07-18] MEDS ORDERED: POTASSIUM CHLORIDE 10 MEQ SR TABLET PO (07:45)
[2017-07-18] MEDS: TIOTROPIUM INHALER/CAPSULE (SPIRIVA) INH (08:18)
[2017-07-18] MEDS: SYMBICORT 80/4.5MCG INHALER 6GM INH (08:18)
[2017-07-18] MEDS ORDERED: POTASSIUM CHL PWD 20 MEQ PACKET PO (08:45)
[2017-07-18] MEDS: DOCUSATE SOD LIQ 100MG/10ML UDC GT ×2 (09:18→21:17)
[2017-07-18] MEDS: POTASSIUM CHLORIDE 10% LIQ 20 MEQ/15 ML UDC PO (09:19)
[2017-07-18] MEDS: ATORVASTATIN 20 MG TAB PO (09:19)
[2017-07-18] MEDS: METOPROLOL TART 12.5 MG PER 1/2 TAB PO (09:19)
[2017-07-18] MEDS: amLODIPine 5 MG TAB PO (09:20)
[2017-07-18] MEDS: TAMSULOSIN 0.4 MG CAP PO (09:20)
[2017-07-18] MEDS: ESCITALOPRAM OXALATE 10 MG TAB (LEXAPRO) PO (09:20)
[2017-07-18] MEDS: ASPIRIN 81 MG ENTERIC TAB PO (09:20)
[2017-07-18] MEDS: TICAGRELOR 90 MG TABLET (BRILINTA) PO (09:20)
[2017-07-18] MEDS: LevoFLOXacin IV 500 MG in APPROPRIATE DILUENT 1 EA IV (12:08)
[2017-07-18] MEDS: MOM 30ML SUSPENSION UDC PEG (14:36)
[2017-07-18] MEDS: ALBUTEROL SULFATE 2.5 MG/0.5 ML INH NEB SOLN INH (15:59)
[2017-07-18] MEDS: METOPROLOL TART 25 MG TABLET PO (21:17)
[2017-07-19] MEDS: PERCOCET 5MG/325MG TAB PO ×4 (00:14→20:17)
[2017-07-19] MEDS: ALBUTEROL SULFATE 2.5 MG/0.5 ML INH NEB SOLN INH (00:49)
[2017-07-19 05:33] LABS: ANION GAP 6 MEQ/L (8-16); BLOOD UREA NITROGEN 10 MG/DL (7-18); CALCIUM LEVEL 8.4 MG/DL (8.8-10.2); CARBON DIOXIDE LEVEL 30 MEQ/L (21-32); CHLORIDE LEVEL 98 MEQ/L (98-107); CREATININE FOR GFR 0.61 MG/DL (0.70-1.30); GLOMERULAR FILTRATION RATE > 60.0 (>49); GLUCOSE, FASTING 107 MG/DL (70-100); POTASSIUM SERUM 3.4 MEQ/L (3.5-5.1); SODIUM LEVEL 134 MEQ/L (136-145)
[2017-07-19] MEDS: HEPARIN SOD (PORCINE) 5000 UNITS/ML VIAL SC ×3 (06:00→21:05)
[2017-07-19] MEDS: LEVOTHYROXINE 100MCG TABLET (0.1MG) PO (06:33)
[2017-07-19] MEDS: TIOTROPIUM INHALER/CAPSULE (SPIRIVA) INH (07:32)
[2017-07-19] MEDS: SYMBICORT 80/4.5MCG INHALER 6GM INH (07:32)
[2017-07-19] MEDS: DOCUSATE SOD LIQ 100MG/10ML UDC GT ×2 (07:46→20:17)
[2017-07-19] MEDS: POTASSIUM CHLORIDE 10 MEQ SR TABLET PO (07:47)
[2017-07-19] MEDS: amLODIPine 5 MG TAB PO (07:47)
[2017-07-19] MEDS: ASPIRIN 81 MG ENTERIC TAB PO (07:47)
[2017-07-19] MEDS: ESCITALOPRAM OXALATE 10 MG TAB (LEXAPRO) PO (07:47)
[2017-07-19] MEDS: ATORVASTATIN 20 MG TAB PO (07:48)
[2017-07-19] MEDS: TAMSULOSIN 0.4 MG CAP PO (07:48)
[2017-07-19] MEDS: METOPROLOL TART 25 MG TABLET PO (07:48)
[2017-07-19] MEDS: LevoFLOXacin IV 500 MG in APPROPRIATE DILUENT 1 EA IV (13:47)
[2017-07-19 17:28] LABS: HEMATOCRIT 36.7 % (42.0-52.0); HEMOGLOBIN 12.6 g/dl (14.0-18.0); MEAN CORPUSCULAR HEMOGLOBIN 30.6 pg (27.0-33.0); MEAN CORPUSCULAR HGB CONC 34.3 g/dl (32.0-36.5); MEAN CORPUSCULAR VOLUME 89.1 fl (80.0-96.0); PLATELET COUNT, AUTOMATED 148 10^3/uL (150-450); RED BLOOD COUNT 4.12 10^6/uL (4.30-6.10); RED CELL DISTRIBUTION WIDTH 13.7 % (11.5-14.5); WHITE BLOOD COUNT 7.3 10^3/uL (4.0-10.0)
[2017-07-19] MEDS: METOPROLOL TART 50 MG TAB PO (20:16)
[2017-07-20] MEDS: PERCOCET 5MG/325MG TAB PO ×4 (02:19→20:19)
[2017-07-20 05:19] LABS: HEMATOCRIT 40.4 % (42.0-52.0); HEMOGLOBIN 13.8 g/dl (14.0-18.0); MEAN CORPUSCULAR HEMOGLOBIN 30.1 pg (27.0-33.0); MEAN CORPUSCULAR HGB CONC 34.2 g/dl (32.0-36.5); MEAN CORPUSCULAR VOLUME 88.2 fl (80.0-96.0); PLATELET COUNT, AUTOMATED 164 10^3/uL (150-450); RED BLOOD COUNT 4.58 10^6/uL (4.30-6.10); RED CELL DISTRIBUTION WIDTH 13.8 % (11.5-14.5); WHITE BLOOD COUNT 7.8 10^3/uL (4.0-10.0)
[2017-07-20 05:46] LABS: ANION GAP 5 MEQ/L (8-16); BLOOD UREA NITROGEN 10 MG/DL (7-18); CALCIUM LEVEL 8.7 MG/DL (8.8-10.2); CARBON DIOXIDE LEVEL 32 MEQ/L (21-32); CHLORIDE LEVEL 99 MEQ/L (98-107); CREATININE FOR GFR 0.74 MG/DL (0.70-1.30); GLOMERULAR FILTRATION RATE > 60.0 (>49); GLUCOSE, FASTING 101 MG/DL (70-100); MAGNESIUM LEVEL 2.3 MG/DL (1.8-2.4); POTASSIUM SERUM 3.8 MEQ/L (3.5-5.1); SODIUM LEVEL 136 MEQ/L (136-145)
[2017-07-20] MEDS: HEPARIN SOD (PORCINE) 5000 UNITS/ML VIAL SC ×3 (06:16→22:42)
[2017-07-20] MEDS: LEVOTHYROXINE 100MCG TABLET (0.1MG) PO (06:16)
[2017-07-20] MEDS: SYMBICORT 80/4.5MCG INHALER 6GM INH (07:32)
[2017-07-20] MEDS: TIOTROPIUM INHALER/CAPSULE (SPIRIVA) INH (07:32)
[2017-07-20] MEDS: DOCUSATE SOD LIQ 100MG/10ML UDC GT ×2 (08:01→20:18)
[2017-07-20] MEDS: ASPIRIN 81 MG ENTERIC TAB PO (08:01)
[2017-07-20] MEDS: METOPROLOL TART 50 MG TAB PO ×2 (08:01→20:18)
[2017-07-20] MEDS: ESCITALOPRAM OXALATE 10 MG TAB (LEXAPRO) PO (08:02)
[2017-07-20] MEDS: TAMSULOSIN 0.4 MG CAP PO (08:02)
[2017-07-20] MEDS: amLODIPine 5 MG TAB PO (08:02)
[2017-07-20] MEDS: ATORVASTATIN 20 MG TAB PO (08:02)
[2017-07-20] MEDS: LevoFLOXacin IV 500 MG in APPROPRIATE DILUENT 1 EA IV (12:12)
[2017-07-20] MEDS: fentaNYL 25 MCG/HR PATCH TOP (15:29)
[2017-07-21 00:06] LABS: BODY FLUID CULTURE Not Indicated (.); LEGIONELLA ANTIGEN URINE Negative (Negative); ORGANISM ID Not indicated. (.); SPECIMEN SOURCE Urine (.); URINE STREP PNEUMONIAE ANTIGEN Negative (Negative)
[2017-07-21] MEDS ORDERED: SLF 3 ML SYR IV (04:15)
[2017-07-21 05:16] LABS: HEMATOCRIT 39.4 % (42.0-52.0); HEMOGLOBIN 13.5 g/dl (14.0-18.0); MEAN CORPUSCULAR HEMOGLOBIN 30.2 pg (27.0-33.0); MEAN CORPUSCULAR HGB CONC 34.3 g/dl (32.0-36.5); MEAN CORPUSCULAR VOLUME 88.1 fl (80.0-96.0); PLATELET COUNT, AUTOMATED 178 10^3/uL (150-450); RED BLOOD COUNT 4.47 10^6/uL (4.30-6.10); RED CELL DISTRIBUTION WIDTH 13.7 % (11.5-14.5); WHITE BLOOD COUNT 8.3 10^3/uL (4.0-10.0)
[2017-07-21 05:41] LABS: ANION GAP 6 MEQ/L (8-16); BLOOD UREA NITROGEN 11 MG/DL (7-18); CALCIUM LEVEL 8.6 MG/DL (8.8-10.2); CARBON DIOXIDE LEVEL 32 MEQ/L (21-32); CHLORIDE LEVEL 99 MEQ/L (98-107); GLOMERULAR FILTRATION RATE > 60.0 (>49); GLUCOSE, FASTING 90 MG/DL (70-100); MAGNESIUM LEVEL 2.1 MG/DL (1.8-2.4); POTASSIUM SERUM 3.3 MEQ/L (3.5-5.1); SODIUM LEVEL 137 MEQ/L (136-145)
[2017-07-21] MEDS: SLF 3 ML SYR IV (06:02)
[2017-07-21] MEDS: HEPARIN SOD (PORCINE) 5000 UNITS/ML VIAL SC (06:02)
[2017-07-21] MEDS: LEVOTHYROXINE 100MCG TABLET (0.1MG) PO (06:02)
[2017-07-21] MEDS: PERCOCET 5MG/325MG TAB PO (06:03)
[2017-07-21] MEDS: POTASSIUM CHLORIDE 10 MEQ SR TABLET PO (07:45)
[2017-07-21] MEDS: TIOTROPIUM INHALER/CAPSULE (SPIRIVA) INH (07:58)
[2017-07-21] MEDS: SYMBICORT 80/4.5MCG INHALER 6GM INH (07:58)
[2017-07-21] MEDS: ASPIRIN 81 MG ENTERIC TAB PO (08:53)
[2017-07-21] MEDS: ESCITALOPRAM OXALATE 10 MG TAB (LEXAPRO) PO (08:53)
[2017-07-21] MEDS: POTASSIUM CHLORIDE 10% LIQ 20 MEQ/15 ML UDC PO (08:53)
[2017-07-21] MEDS: amLODIPine 5 MG TAB PO (08:54)
[2017-07-21] MEDS: ATORVASTATIN 20 MG TAB PO (08:54)
[2017-07-21] MEDS: METOPROLOL TART 50 MG TAB PO (08:55)
[2017-07-21] MEDS: DOCUSATE SOD LIQ 100MG/10ML UDC GT (08:55)
[2017-07-21] MEDS: TAMSULOSIN 0.4 MG CAP PO (08:55)
== END 2017-07-21 10:36 | disposition home health service (06) | DRG 917 ==
LOC: M ED 11:04 → M ED INP 14:47 → M PCU 16:35
PROVIDERS: General Practice
DX: T40.4X1A Poisoning by other synthetic narcotics, accidental (unintentional), initial encounter (principal); G93.41 Metabolic encephalopathy; I21.4 Non-ST elevation (NSTEMI) myocardial infarction; J18.9 Pneumonia, unspecified organism; R04.2 Hemoptysis; E87.2 Acidosis; N17.9 Acute kidney failure, unspecified; M62.82 Rhabdomyolysis; J44.9 Chronic obstructive pulmonary disease, unspecified; E86.0 Dehydration; E03.9 Hypothyroidism, unspecified; M54.5 Low back pain; Z85.818 Personal history of malignant neoplasm of other sites of lip, oral cavity, and pharynx; Z79.899 Other long term (current) drug therapy; Z79.82 Long term (current) use of aspirin; E78.5 Hyperlipidemia, unspecified; E87.5 Hyperkalemia; M19.90 Unspecified osteoarthritis, unspecified site; F41.9 Anxiety disorder, unspecified; D64.9 Anemia, unspecified; Z91.040 Latex allergy status; R55 Syncope and collapse; Z87.891 Personal history of nicotine dependence; F11.90 Opioid use, unspecified, uncomplicated; M54.2 Cervicalgia

== ENCOUNTER → 2018-01-14 | Outpatient (CLI) | payer MEDICARE, MEDICAID | LOC: M CLY 10:56 | DX: J18.1 Lobar pneumonia, unspecified organism (principal); E03.9 Hypothyroidism, unspecified | CPT/HCPCS: 71046; 84443 ==

== ENCOUNTER → 2018-01-14 | Outpatient (REF) | payer MEDICARE, MEDICAID | LOC: M SFHCCLAY 10:26 | DX: E03.9 Hypothyroidism, unspecified (principal) | CPT/HCPCS: 84443 ==

== ENCOUNTER 2018-02-08 10:46 | Emergency (ER) | payer MEDICARE, MEDICAID | END 2018-02-08 13:39 | disposition home or self-care (01) | LOC: M ED 10:46 | DX: K94.23 Gastrostomy malfunction (principal); Z79.82 Long term (current) use of aspirin; Z79.899 Other long term (current) drug therapy; Z91.040 Latex allergy status | CPT/HCPCS: 43760 ==

== ENCOUNTER 2018-10-07 23:21 | Inpatient (IN) | payer MEDICARE, MEDICAID ==
[~2018-10-07] VITALS: Ht 170.2 cm; Wt 71.0 kg
[~2018-10-07 23:21] MED LIST changes: -/FENT50PA TD; +ALB2.5NEB INH; +AMLO5TAB6 PO; +ASPI81TAEC PO; +ATOR1TAB21 PO; +DOXY100C37 PO; +ESCI10TA2 FT; +FENT1DIS15 TD; +FENT25DI33 TD; -FENT25PA TD; +FLOM0.4C39 PO; +GUAI100L6 PO; +K-TA10TA2 PO; +LEVO100T5 FT; +LOPR1TAB6 PO; +PERCOCET PO; +SYMB80INH INH
[2018-10-08 00:20] LABS: CALCIUM LEVEL 8.7 MG/DL (8.8-10.2); CREATININE FOR GFR 1.35 MG/DL (0.70-1.30); GLOMERULAR FILTRATION RATE 56.3 (>49); POTASSIUM SERUM 5.2 MEQ/L (3.5-5.1)
[2018-10-08 00:28] LABS: BASO % 0.2 % (0.0-1.0); HEMATOCRIT 39.8 % (42.0-52.0); HEMOGLOBIN 12.7 g/dl (13.5-17.5); LYMPH # 0.4 10^3/uL (1.5-4.5); LYMPH % 1.9 % (24.0-44.0); MEAN CORPUSCULAR HEMOGLOBIN 31.9 pg (27.0-33.0); MEAN CORPUSCULAR HGB CONC 31.9 g/dl (32.0-36.5); MONO # 1.4 10^3/uL (0.0-0.8); MONO % 7.1 % (0.0-5.0); NEUTROPHILS # 17.4 10^3/uL (1.8-7.7); NEUTROPHILS % 90.1 % (36.0-66.0); PLATELET COUNT, AUTOMATED 168 10^3/uL (150-450); RED BLOOD COUNT 3.98 10^6/uL (4.30-6.10); WHITE BLOOD COUNT 19.2 10^3/uL (4.0-10.0)
[2018-10-08] MEDS ORDERED: ISOVUE-370 76% 100ML VIAL (Q9967) As Ordered ONE (01:59)
[2018-10-08] MEDS ORDERED: NS 500 ML IV ONE (02:00)
[2018-10-08] MEDS ORDERED: IPRATROPIUM 0.5MG/ALBUTEROL 2.5MG INH SOL UD 3ML (DUONEB)(J7620) NEB ONE (02:15)
--- NOTE | 2018-10-08 02:38 | REPVR ---
EXAM: CT Angiography Chest With Contrast EXAM DATE/TIME: 10/08/2018 1:54 AM CLINICAL HISTORY: 67 years old, male; Signs and symptoms; Dyspnea and shortness of breath; Additional info: Dysp TECHNIQUE: Imaging protocol: Axial computed tomographic angiography images of the chest with intravenous contrast using CT angiography protocol. Coronal and sagittal reformatted images were created and reviewed. 3D rendering: MIP reconstructed images were created and reviewed. Radiation optimization: All CT scans at this facility use at least one of these dose optimization techniques: automated exposure control; mA and/or kV adjustment per patient size (includes targeted exams where dose is matched to clinical indication); or iterative reconstruction. Contrast material: ISO; Contrast volume: 75 ml; Contrast route: AC; COMPARISON: CT ANGIO CHEST 07/16/2017 11:44 AM FINDINGS: Pulmonary arteries: The main pulmonary artery measures 30 mm. Minimal pulmonary embolism extending into the anterior right upper lobe and minimal pulmonary embolism extending into the medial lingula. Aorta: The ascending thoracic aorta measures 34 mm. Lungs: Slight interstitial prominence with moderate bilateral lower lobe atelectasis or consolidation, left greater than right. Pleural space: Normal. No pneumothorax. No pleural effusion. Heart: Normal. No cardiomegaly. No pericardial effusion. Lymph nodes: Borderline left hilar nodes. Bones/joints: Slight superior endplate depression of L1 of uncertain age. Soft tissues: Unremarkable. IMPRESSION: 1. Minimal bilateral pulmonary embolism extending into the anterior right upper lobe and the medial lingula. 2. Superior endplate depression of L1 which is new since 07/16/2017 and is of uncertain age. 3. Resolution of bilateral pleural effusions since the prior study. 4. Slight interstitial prominence with moderate bilateral lower lobe atelectasis or consolidation, left greater than right which is similar to the prior study. 5. Borderline left hilar nodes which are slightly increased since the prior study. Electronically signed by: Neftaly Evangelista On 10/08/2018 02:38:06 AM
[2018-10-08] MEDS ORDERED: MOM 30ML SUSPENSION UDC PO PRN (03:00)
[2018-10-08] MEDS ORDERED: MAALOX 30 ML SUSP *UDC PO PRN (03:00)
[2018-10-08] MEDS ORDERED: PILL CUTTER 1 EACH XX ONE (03:00)
[2018-10-08] MEDS ORDERED: APIXABAN 5 MG TAB (ELIQUIS) PO ONE (03:00)
[2018-10-08 03:11] LABS: ABG BASE EXCESS 5.1 (-2.0-2.0); ABG HCO3 31.1 MEQ/L (22.0-26.0); ABG O2 SATURATION 92.7 % (95.0-99.0); ABG PARTIAL PRESSURE O2 65.2 mmHg (75.0-100.0); ABG TOTAL CO2 32.7 MEQ/L (23.0-31.0); ABG pH (ARTERIAL) 7.395 UNITS (7.350-7.450)
[2018-10-08] MEDS ORDERED: ECOT81TA5 FT (03:40)
[2018-10-08] MEDS ORDERED: RANI1SYP FT (03:40)
[2018-10-08] MEDS ORDERED: SYMB16INH INH (03:40)
[2018-10-08] MEDS ORDERED: METO1TAB87 FT (03:40)
[2018-10-08] MEDS ORDERED: ENSULIQ9 FT (03:40)
[2018-10-08] MEDS ORDERED: ALBU83IN INH (03:40)
[2018-10-08] MEDS ORDERED: BPRO1LIQ FT (03:40)
[2018-10-08] MEDS ORDERED: ATOR40TA75 FT (03:40)
[2018-10-08] MEDS ORDERED: OXYC15TA76 FT (03:40)
[2018-10-08 03:43] LABS: INR 1.03; PROTHROMBIN TIME 13.6 SECONDS (12.1-14.4)
[2018-10-08 03:44] LABS: PARTIAL THROMBOPLASTIN TIME 27.3 SECONDS (25.4-37.6)
[2018-10-08] MEDS: PIPERACILLIN/TAZOBACTAM SOD 4.5 GM in D5W MINI-BAG PLUS 50 ML IV SCH ×4 (03:53→22:11)
--- NOTE | 2018-10-08 03:54 | HPEPDOC ---
General Date of Admission October 08, 2018 at 02:58 Date of Service: October 08, 2018 Chief Complaint The patient is a 67-year-old male admitted with a reason for visit of Pulmonary Emboli. Source: Patient, RN/, Old records History of Present Illness Mr. Araiza is a 67 years old man with previously treated tonsillar cancer, presented to ER with c/o acute onset of SOB for one days. Pt also reports productive cough with large amount yellow-brownish sputum and subjective fever f or few days. He denies any other change in his usual state of health. No recent travel or surgical procedure. In the ERR, pt was hypoxic; O2 sat 84% in RA; requiring 2L O2 by NC. Vitals dhaval; afebrile. WBC 19K. CTA: 1. Minimal bilateral pulmonary embolism extending into the anterior right upper lobe and the medial lingula. 2. Superior endplate depression of L1 which is new since 07/16/2017 and is of uncertain age. 3. Resolution of bilateral pleural effusions since the prior study. 4. Slight interstitial prominence with moderate bilateral lower lobe atelectasis or consolidation, left greater than right which is similar to the prior study. 5. Borderline left hilar nodes which are slightly increased since the prior study. Home Medications Scheduled Amlodipine Besylate (Amlodipine Besylate) 5 Mg Tab, 5 MG PO DAILY Aspirin (Aspirin EC) 81 Mg Tabec, 81 MG PO DAILY Atorvastatin Calcium (Atorvastatin Calcium) 20 Mg Tab, 40 MG PO DAILY Budesonide/Formoterol (Symbicort 80-4.5 Mcg Inhaler) 60 Puff/Inhaler Aers, 2 PUFF INH DAILY, (Reported) Escitalopram Oxalate (Escitalopram Oxalate) 10 Mg Tab, 10 MG PO DAILY, (Reported) Fentanyl (Fentanyl) 25 Mcg Tdsy, 25 MCG TD Q72H, (Reported) APPLIED TO LEFT SHOULDER, REMOVED IN ED 07/15 Levothyroxine Sodium (Levothyroxine Sodium) 100 Mcg Tab, 100 MCG PO DAILY, (Reported) Metoprolol Tartrate (Lopressor) 50 Mg Tab, 50 MG PO BID Potassium Chloride (K-Tab ER) 10 Meq Tab, 20 MEQ PO DAILY Tamsulosin HCl (Flomax) 0.4 Mg Cap, 0.4 MG PO DAILY Tiotropium [place] (Spiriva) 18 Mcg Cap, 1 INHALATION INH DAILY, (Reported) Scheduled PRN Albuterol Sulfate (Albuterol Sulfate) 2.5 Mg/0.5 Ml Neb, 2.5 MG INH Q8H PRN for SHORTNESS OF BREATH, (Reported) Guaifenesin (Guaifenesin) 100 Mg/5 Ml Syp, 10 ML PO Q12H PRN for COUGH, (Reported) Oxycodone/Acetaminophen (Oxycodone-Acetaminophen 5-325) 1 Tab Tab, 1 TAB PO Q6HP PRN for BREAKTHROUGH PAIN Allergies Coded Allergies: latex (Verified Allergy, Intermediate, hives, 10/07/18) Past Medical History Medical History PAST MEDICAL HISTORY: 1. 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 2. Esophageal stricture as a complication of radiation therapy status post dilatation in 2013. 3. Hyperlipidemia. 4. Hypothyroidism. 5. Anemia. 6. Anxiety. 7. Lyme's disease. 8. Osteoarthritis. 9. Hematuria. 10. Chronic obstructive pulmonary disease (COPD). 11. Chronic left lower lobe infiltration status post transbronchial biopsy, negative for malignancy. Pathology suggests chronic inflammatory infiltrates. PAST SURGICAL HISTORY: 1. Cystoscopy for hematuria. 2. Transbronchial biopsy for chronic left lower lobe infiltrate. 3. Right hand surgery in 2006. 4. G-tube placement in 2010 just after the diagnosis of cancer. 5. Repair of hernia. FAMILY HISTORY: Father from throat cancer. Mother from cervical cancer. Siblings from lung and breast cancer. Brother lung cancer. SOCIAL HISTORY: Ex-smoker, quit 15 years ago. Ex-alcohol abuser, quit 20 years ago. Social History * Smoker: former Smoker A-FIB/CHADSVASC A-FIB History Current/History of A-Fib/PAF?: No Review of Systems Constitutional: Reports: Fever; Denies: Chills, Weakness Eyes: Denies: Pain ENT: Denies: Head Aches Skin: Denies: Rash, Lesions Pulmonary: Reports: Dyspnea, Cough Cardiovascular: Denies: Chest Pain, Edema Gastrointestinal: Denies: Nausea, Vomiting, Abdominal Pain, Diarrhea Genitourinary: Denies: Dysuria, Frequency Musculoskeletal: Denies: Neck Pain, Back Pain Neurological: Denies: Weakness, Numbness, Change in speech Psych: Reports: Mood Normal, Anxiety Physical Examination General Exam: Positive: Alert, Cooperative, No Acute Distress Eye Exam: Positive: PERRLA ENT Exam: Positive: Atraumatic Neck Exam: Positive: Supple; Negative: JVD Chest Exam: Positive: Clear to auscultation, Normal air movement Heart Exam: Positive: Rate Normal, Regular Rhythm Abdomen Exam: Positive: Normal bowel sounds, Soft Extremity Exam: Positive: Normal pulses; Negative: Edema Skin Exam: Positive: Nl turgor and temperature; Negative: Rash, Breakdown Neuro Exam: Positive: Normal Speech, Strength at 5/5 X4 ext Psych Exam: Positive: Mental status NL, Mood NL Vital Signs Vital Signs Date Time Temp Pulse Resp B/P (MAP) Pulse Ox O2 Delivery O2 Flow Rate FiO2 10/08/18 03:32 84 22 92 Nasal Cannula 2.0 10/08/18 03:31 134/71 (92) 10/07/18 23:34 98.2 Laboratory Data Labs 24H Laboratory Tests 2 10/07/18 23:52: Immature Granulocyte % (Auto) 0.7, White Blood Count 19.2H, Red Blood Count 3.98L, Hemoglobin 12.7L, Hematocrit 39.8L, Mean Corpuscular Volume 100.0H, Mean Corpuscular Hemoglobin 31.9, Mean Corpuscular Hemoglobin Concent 31.9L, Red Cell Distribution Width 15.1H, Platelet Count 168, Neutrophils (%) (Auto) 90.1H, Lymphocytes (%) (Auto) 1.9L, Monocytes (%) (Auto) 7.1H, Eosinophils (%) (Auto) 0.0, Basophils (%) (Auto) 0.2, Neutrophils # (Auto) 17.4H, Lymphocytes # (Auto) 0.4L, Monocytes # (Auto) 1.4H, Eosinophils # (Auto) 0.0, Basophils # (Auto) 0.0, Nucleated Red Blood Cells % (auto) 0.0, Anion Gap 9, Glomerular Filtration Rate 56.3, Blood Urea Nitrogen 21H, Creatinine 1.35H, Sodium Level 136, Potassium Level 5.2H, Chloride Level 97L, Carbon Dioxide Level 30, Calcium Level 8.7L 10/08/18 00:00: 10/08/18 03:06: Blood Gas Bicarbonate Standard 29.0H, Arterial Blood pH 7.395, Arterial Blood Partial Pressure CO2 52.0H, Arterial Blood Partial Pressure O2 65.2L, Arterial Blood Total CO2 32.7H, Arterial Blood HCO3 31.1H, Arterial Blood Base Excess 5.1H, Arterial Blood Oxygen Saturation 92.7L CBC/BMP Laboratory Tests 10/07/18 23:52 Red Blood Count 3.98 L, Mean Corpuscular Volume 100.0 H, Mean Corpuscular H emoglobin 31.9, Mean Corpuscular Hemoglobin Concent 31.9 L, Red Cell Distribution Width 15.1 H, Neutrophils (%) (Auto) 90.1 H, Lymphocytes (%) (Auto) 1.9 L, Monocytes (%) (Auto) 7.1 H, Eosinophils (%) (Auto) 0.0, Basophils (%) (Auto) 0.2, Neutrophils # (Auto) 17.4 H, Lymphocytes # (Auto) 0.4 L, Monocytes # (Auto) 1.4 H, Eosinophils # (Auto) 0.0, Basophils # (Auto) 0.0, Calcium Level 8.7 L Microbiology Microbiology 10/08/18 Blood Culture, Received Pending 10/08/18 Gram Stain, Received Pending 10/08/18 Sputum Culture, Received Pending Assessment/Plan Acute Pulmonary Emboli with Acute Hypoxic Respiratory Failure; Suspected PNA vs Bacterial Bronchitis - Admit to inpatient - Eliquis for PE; IV Zosyn for Resp infection - US LE to r/o DVT; Blood, sputum c/s - O2 by NC; wean off as tolerated; may need home O2 - Hemodynamic is stable; no signs of heart failure - Monitor bleeding - Continue home meds for other chronic illness - Continue home regimen for Tube feeding: ENSURE 6 cans/day Plan / VTE VTE Prophylaxis Ordered?: No VTE Exclusion Mechanical Proph: Other VTE Exclusion Pharmacological: Other Plan Respiratory: Wean Oxygen Anticipated Discharge: Home JON MANZANARES MD October 08, 2018 03:54
[2018-10-08] MEDS ORDERED: SYMBICORT 160/4.5MCG INHALER 6GM INH PRN (04:00)
[2018-10-08] MEDS ORDERED: ASPI81CH31 FT (04:40)
[2018-10-08] MEDS ORDERED: FERR32TA FT (04:42)
[2018-10-08] MEDS: NS 1,000 ML IV SCH ×2 (04:58→11:47)
[2018-10-08 06:00] VITALS: BP 119/57
--- NOTE | 2018-10-08 06:11 | ECGEPIP ---
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
[2018-10-08] MEDS: LEVOTHYROXINE 100MCG TABLET (0.1MG) GT SCH (06:19)
[2018-10-08 06:29] LABS: BASO % 0.2 % (0.0-1.0); HEMATOCRIT 36.4 % (42.0-52.0); HEMOGLOBIN 11.8 g/dl (13.5-17.5); LYMPH # 0.5 10^3/uL (1.5-4.5); LYMPH % 2.7 % (24.0-44.0); MEAN CORPUSCULAR HEMOGLOBIN 31.2 pg (27.0-33.0); MEAN CORPUSCULAR HGB CONC 32.4 g/dl (32.0-36.5); MEAN CORPUSCULAR VOLUME 96.3 fl (80.0-96.0); MONO # 1.7 10^3/uL (0.0-0.8); MONO % 9.3 % (0.0-5.0); NEUTROPHILS # 15.6 10^3/uL (1.8-7.7); NEUTROPHILS % 87.4 % (36.0-66.0); PLATELET COUNT, AUTOMATED 154 10^3/uL (150-450); RED BLOOD COUNT 3.78 10^6/uL (4.30-6.10); WHITE BLOOD COUNT 17.8 10^3/uL (4.0-10.0)
[2018-10-08 06:52] LABS: BLOOD UREA NITROGEN 17 MG/DL (7-18); CALCIUM LEVEL 8.2 MG/DL (8.8-10.2); CARBON DIOXIDE LEVEL 35 MEQ/L (21-32); CHLORIDE LEVEL 99 MEQ/L (98-107); CREATININE FOR GFR 0.82 MG/DL (0.70-1.30); GLOMERULAR FILTRATION RATE > 60.0 (>49); GLUCOSE, FASTING 134 MG/DL (70-100); POTASSIUM SERUM 4.3 MEQ/L (3.5-5.1); SODIUM LEVEL 136 MEQ/L (136-145)
[2018-10-08] MEDS: IPRATROPIUM 0.5MG/ALBUTEROL 2.5MG INH SOL UD 3ML (DUONEB)(J7620) NEB SCH ×3 (07:42→19:52)
--- NOTE | 2018-10-08 08:03 | REP ---
Chest x-ray: Two views. History: Dyspnea and cough. Comparison chest x-ray: January 14, 2018. Findings: EKG monitoring electrodes overlie the chest. Oxygen delivery tubing is seen. Right hemidiaphragm is slightly elevated. There is linear fibrosis in the left lower lobe. An area of new plate-like atelectasis is seen in the right base medially. No infiltrate is appreciated. Impression: Discoid atelectasis in the right base linear fibrosis in the left base. No definite acute infiltrate. Electronically Signed by Gunner Camara MD 10/08/2018 07:55 A
[2018-10-08] MEDS ORDERED: DOCUSATE SODIUM 100 MG CAP PO SCH (09:00)
[2018-10-08] MEDS: DOCUSATE SOD LIQ 100MG/10ML UDC GT SCH ×2 (09:00→21:04)
[2018-10-08] MEDS: ASPIRIN 81 MG CHEW TABLET FT SCH (09:25)
[2018-10-08] MEDS: ATORVASTATIN 20 MG TAB GT SCH (09:25)
[2018-10-08] MEDS: oxyCODONE 5MG TAB GT PRN ×2 (09:26→18:45)
[2018-10-08] MEDS: APIXABAN 5 MG TAB (ELIQUIS) PO SCH ×2 (09:26→21:04)
[2018-10-08] MEDS: ESCITALOPRAM OXALATE 10 MG TAB (LEXAPRO) FT SCH (09:27)
[2018-10-08] MEDS: METOPROLOL TART 25 MG TABLET FT SCH ×2 (09:27→21:05)
[2018-10-08 10:00] VITALS: BP 116/62
--- NOTE | 2018-10-08 11:40 | REP ---
Bilateral lower extremity Duplex Doppler venous ultrasound: Real time compression and duplex Doppler interrogation of the bilateral lower extremity deep venous system is performed. Bilaterally, the common femoral, superficial femoral and popliteal veins are fully compressible with transducer pressure and demonstrate normal spontaneous and phasic flow, without evidence of deep venous thrombosis. Impression: No evidence of deep venous thrombosis of the bilateral lower extremity femoral popliteal venous system. Right popliteal cyst measures 4.0 x 2.3 x 2.4 cm. Electronically Signed by Sunny Whitlock MD 10/08/2018 11:32 A
[2018-10-08 14:00] VITALS: BP 100/58
[2018-10-08 17:10] LABS: TROPONIN I 0.09 NG/ML (< 0.10)
[2018-10-08 17:30] VITALS: BP_SYST 120; BP_SYST 140; BP_DIAS 68; BP_DIAS 80
[2018-10-08] MEDS ORDERED: guaiFENesin ER 600 MG TAB PO SCH (21:00)
[2018-10-08] MEDS: raNITIdine SYRUP 150 MG/10 ML UDC GT SCH (21:04)
[2018-10-08 22:00] VITALS: BP 91/53
[2018-10-08] MEDS: ACETAMINOPHEN TAB 650MG DOSE (2X325MG) PO PRN (22:12)
[2018-10-08] MEDS: guaiFENesin 200 MG TAB PO SCH (23:53)
[2018-10-09] MEDS: oxyCODONE 5MG TAB GT PRN ×5 (01:18→23:59)
[2018-10-09] MEDS: IPRATROPIUM 0.5MG/ALBUTEROL 2.5MG INH SOL UD 3ML (DUONEB)(J7620) NEB SCH ×4 (01:23→20:17)
[2018-10-09 02:00] VITALS: BP 113/65
[2018-10-09] MEDS: NS 1,000 ML IV SCH (04:50)
[2018-10-09] MEDS: PIPERACILLIN/TAZOBACTAM SOD 4.5 GM in D5W MINI-BAG PLUS 50 ML IV SCH ×4 (04:50→22:06)
[2018-10-09] MEDS: LEVOTHYROXINE 100MCG TABLET (0.1MG) GT SCH (05:46)
[2018-10-09] MEDS: guaiFENesin 200 MG TAB PO SCH ×3 (05:49→22:05)
[2018-10-09 05:57] LABS: BASO % 0.2 % (0.0-1.0); EOS # 0.1 10^3/uL (0.0-0.50); EOS % 0.9 % (0.0-3.0); HEMATOCRIT 34.5 % (42.0-52.0); LYMPH # 0.7 10^3/uL (1.5-4.5); LYMPH % 7.6 % (24.0-44.0); MEAN CORPUSCULAR HEMOGLOBIN 30.8 pg (27.0-33.0); MEAN CORPUSCULAR HGB CONC 31.9 g/dl (32.0-36.5); MEAN CORPUSCULAR VOLUME 96.6 fl (80.0-96.0); MONO # 1.1 10^3/uL (0.0-0.8); PLATELET COUNT, AUTOMATED 143 10^3/uL (150-450); RED BLOOD COUNT 3.57 10^6/uL (4.30-6.10); WHITE BLOOD COUNT 8.8 10^3/uL (4.0-10.0)
[2018-10-09 06:00] VITALS: BP 160/89
[2018-10-09 06:19] LABS: BLOOD UREA NITROGEN 16 MG/DL (7-18); CALCIUM LEVEL 8.1 MG/DL (8.8-10.2); CARBON DIOXIDE LEVEL 33 MEQ/L (21-32); CHLORIDE LEVEL 104 MEQ/L (98-107); CREATININE FOR GFR 0.67 MG/DL (0.70-1.30); GLOMERULAR FILTRATION RATE > 60.0 (>49); GLUCOSE, FASTING 103 MG/DL (70-100); POTASSIUM SERUM 3.8 MEQ/L (3.5-5.1); SODIUM LEVEL 139 MEQ/L (136-145)
[2018-10-09 08:28] LABS: NT-PRO BNP 3699 PG/ML (<125); TROPONIN I 0.07 NG/ML (< 0.10)
[2018-10-09] MEDS: ATORVASTATIN 20 MG TAB GT SCH (08:44)
[2018-10-09] MEDS: ESCITALOPRAM OXALATE 10 MG TAB (LEXAPRO) FT SCH (08:44)
[2018-10-09] MEDS: APIXABAN 5 MG TAB (ELIQUIS) PO SCH ×2 (08:44→22:05)
[2018-10-09] MEDS: ASPIRIN 81 MG CHEW TABLET FT SCH (08:44)
[2018-10-09] MEDS: METOPROLOL TART 25 MG TABLET FT SCH ×2 (08:45→22:06)
[2018-10-09] MEDS: DOCUSATE SOD LIQ 100MG/10ML UDC GT SCH ×2 (08:45→22:06)
[2018-10-09 09:57] VITALS: BP 145/79
--- NOTE | 2018-10-09 11:51 | IPNPDOC ---
Date Seen The patient was seen on 10/09/18. Progress Note SUBJECTIVE: Patient tells me that his cough and shortness of breath are improved. It is not back to normal but it is certainly better otherwise patient denies chest pain, nausea, vomiting, fevers, chills, back pain OBJECTIVE PHYSICAL EXAMINATION: VITAL SIGNS: Please see below. GENERAL: Pleasant elderly man appears older than stated age sitting up in bed awake alert oriented speaking in complete sentences no acute distress, he has a raspy voice which is his baseline HEENT: Moist mucous membranes no elevation and CVP CARDIOVASCULAR: S1 S2 regular no additional heart sounds appreciated. RESPIRATORY: Clear to auscultation bilaterally. ABDOMINAL: Bowel sounds present abdomen soft and nontender EXTREMITIES: No clubbing cyanosis or edema NEUROLOGICAL: Spontaneously moves all 4 extremities cranial 2 through 12 grossly intact no gross focal deficits appreciated PSYCHOLOGICAL: Appropriate LABORATORY DATA, MICROBIOLOGY: Please see below. IMAGING STUDIES: Chest x-ray:Discoid atelectasis in the right base linear fibrosis in the left base. No definite acute infiltrate. CT angiography chest:1. Minimal bilateral pulmonary embolism extending into the anterior right upper lobe and the medial lingula. 2. Superior endplate depression of L1 which is new since 07/16/2017 and is of uncertain age. 3. Resolution of bilateral pleural effusions since the prior study. 4. Slight interstitial prominence with moderate bilateral lower lobe atelectasis or consolidation, left greater than right which is similar to the prior study. 5. Borderline left hilar nodes which are slightly increased since the prior study. Vascular ultrasound:No evidence of deep venous thrombosis of the bilateral lower extremity femoral popliteal venous system. Right popliteal cyst measures 4.0 x 2.3 x 2.4 cm. ASSESSMENT AND PLAN: This is a 67-year-old man with hypoxic respiratory failure secondary to pulmonary embolism. PROBLEMS: 1. Hypoxic respiratory failure secondary to pulmonary embolism: Patient has some minimal shortness of breath but he is certainly improved. His cough is decreased. At this time we will attempt to wean his O2 to room air which is his baseline, I will have him work with physical therapy get him up and ambulate. His blood cultures are thus far negative his pro-calcitonin is pending. My suspicion for a pneumonia superimposed bacterial infection and lower we'll continue to follow cultures and discontinue antibiotics as appropriate. His troponin this was within normal limits his BNP is slightly elevated secondary to his PEs I have started him on oral anticoagulation which thus far he is tolerating well. 2. 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 He has history of esophageal stricture as a complication of this. Likely chronic complaint role that is what cough and raspy voice is being provided with Mucinex 3. Dyslipidemia: Continue statin and aspirin 4. Hypothyroidism: Continue with Synthroid 5. Anemia: We'll resume home ferrous gluconate 6. Anxiety: Continue with Lexapro 7. Osteoarthritis 8. Chronic Obstructive lung disease COPD: No evidence of acute decompensation we're providing him Mucinex and he does appear to what cough. Continue with Symbicort 9. Hypertension: Continue with metoprolol 10. Gastroesophageal reflux disease: Continue with ranitidine DVT prophylaxis: Pending resolution of O2 requirement prior authorization of Eliquis clearance PT DISPOSITION: Likely home within the next 24-48 hours. VS, I&O, 24H, Fishbone Vital Signs/I&O Vital Signs Date Time Temp Pulse Resp B/P (MAP) Pulse Ox O2 Delivery O2 Flow Rate FiO2 10/09/18 09:57 97.7 80 20 145/79 (101) 94 2.0 10/08/18 04:17 Nasal Cannula I&O- Last 24 Hours up to 6 AM 10/09/18 06:00 Intake Total 1490 ml Output Total 1625 ml Balance -135 ml Laboratory Data 24H LABS Laboratory Tests 2 10/08/18 16:37: Troponin I 0.09, RU-Tso-A-Type Natriuretic Peptide 5090H 10/09/18 05:21: Troponin I 0.07#, CL-Nfi-W-Type Natriuretic Peptide 3699H, Immature Granulocyte % (Auto) 0.3, White Blood Count 8.8, Red Blood Count 3.57L, Hemoglobin 11.0L, Hematocrit 34.5L, Mean Corpuscular Volume 96.6H, Mean Corpuscular Hemoglobin 30.8, Mean Corpuscular Hemoglobin Concent 31.9L, Red Cell Distribution Width 15.4H, Platelet Count 143L, Neutrophils (%) (Auto) 79.0H, Lymphocytes (%) (Auto) 7.6L, Monocytes (%) (Auto) 12.0H, Eosinophils (%) (Auto) 0.9, Basophils (%) (Auto) 0.2, Neutrophils # (Auto) 7.0, Lymphocytes # (Auto) 0.7L, Monocytes # (Auto) 1.1H, Eosinophils # (Auto) 0.1, Basophils # (Auto) 0.0, Nucleated Red Blood Cells % (auto) 0.0, Anion Gap 2L, Glomerular Filtration Rate > 60.0, Blood Urea Nitrogen 16, Creatinine 0.67L, Sodium Level 139, Potassium Level 3.8, Chloride Level 104, Carbon Dioxide Level 33H, Calcium Level 8.1L CBC/BMP Laboratory Tests 10/09/18 05:21 Red Blood Count 3.57 L, Mean Corpuscular Volume 96.6 H, Mean Corpuscular Hemoglobin 30.8, Mean Corpuscular Hemoglobin Concent 31.9 L, Red Cell Distribution Width 15.4 H, Neutrophils (%) (Auto) 79.0 H, Lymphocytes (%) (Auto) 7.6 L, Monocytes (%) (Auto) 12.0 H, Eosinophils (%) (Auto) 0.9, Basophils (%) (Auto) 0.2, Neutrophils # (Auto) 7.0, Lymphocytes # (Auto) 0.7 L, Monocytes # (Auto) 1.1 H, Eosinophils # (Auto) 0.1, Basophils # (Auto) 0.0, Calcium Level 8.1 L Microbiology Microbiology 10/08/18 Blood Culture - Preliminary, Resulted No growth after 24 hours . All specim... 10/08/18 Gram Stain - Final, Resulted 10/08/18 Sputum Culture, Resulted Pending SUNIL SERNA MD Oct 09, 2018 11:51
[2018-10-09 14:00] VITALS: BP 133/72
[2018-10-09] MEDS: ACETAMINOPHEN TAB 650MG DOSE (2X325MG) PO PRN (14:23)
[2018-10-09 18:00] VITALS: BP 121/65
[2018-10-09 22:00] VITALS: BP 130/70
[2018-10-09] MEDS: raNITIdine SYRUP 150 MG/10 ML UDC GT SCH (22:06)
[2018-10-10 02:00] VITALS: BP 142/89
[2018-10-10] MEDS: IPRATROPIUM 0.5MG/ALBUTEROL 2.5MG INH SOL UD 3ML (DUONEB)(J7620) NEB SCH ×4 (02:04→19:50)
[2018-10-10] MEDS: oxyCODONE 5MG TAB GT PRN ×4 (05:06→20:06)
[2018-10-10] MEDS: guaiFENesin 200 MG TAB PO SCH ×3 (05:06→22:24)
[2018-10-10] MEDS: LEVOTHYROXINE 100MCG TABLET (0.1MG) GT SCH (05:06)
[2018-10-10] MEDS: PIPERACILLIN/TAZOBACTAM SOD 4.5 GM in D5W MINI-BAG PLUS 50 ML IV SCH ×4 (05:06→22:24)
[2018-10-10 06:00] VITALS: BP 152/79
[2018-10-10 06:08] LABS: BASO % 0.6 % (0.0-1.0); EOS # 0.2 10^3/uL (0.0-0.50); EOS % 2.7 % (0.0-3.0); HEMATOCRIT 38.2 % (42.0-52.0); HEMOGLOBIN 12.3 g/dl (13.5-17.5); LYMPH # 0.8 10^3/uL (1.5-4.5); LYMPH % 11.2 % (24.0-44.0); MEAN CORPUSCULAR HEMOGLOBIN 31.7 pg (27.0-33.0); MEAN CORPUSCULAR HGB CONC 32.2 g/dl (32.0-36.5); MEAN CORPUSCULAR VOLUME 98.5 fl (80.0-96.0); MONO # 0.8 10^3/uL (0.0-0.8); NEUTROPHILS # 4.9 10^3/uL (1.8-7.7); NEUTROPHILS % 73.2 % (36.0-66.0); PLATELET COUNT, AUTOMATED 150 10^3/uL (150-450); RED BLOOD COUNT 3.88 10^6/uL (4.30-6.10); WHITE BLOOD COUNT 6.7 10^3/uL (4.0-10.0)
[2018-10-10 06:27] LABS: BLOOD UREA NITROGEN 11 MG/DL (7-18); CALCIUM LEVEL 8.5 MG/DL (8.8-10.2); CARBON DIOXIDE LEVEL 31 MEQ/L (21-32); CHLORIDE LEVEL 100 MEQ/L (98-107); CREATININE FOR GFR 0.73 MG/DL (0.70-1.30); GLOMERULAR FILTRATION RATE > 60.0 (>49); GLUCOSE, FASTING 114 MG/DL (70-100); POTASSIUM SERUM 3.9 MEQ/L (3.5-5.1); SODIUM LEVEL 139 MEQ/L (136-145)
[2018-10-10] MEDS: APIXABAN 5 MG TAB (ELIQUIS) PO SCH ×2 (08:54→20:06)
[2018-10-10] MEDS: DOCUSATE SOD LIQ 100MG/10ML UDC GT SCH ×2 (08:54→20:06)
[2018-10-10] MEDS: ASPIRIN 81 MG CHEW TABLET FT SCH (08:54)
[2018-10-10] MEDS: METOPROLOL TART 25 MG TABLET FT SCH ×2 (08:54→20:06)
[2018-10-10] MEDS: ATORVASTATIN 20 MG TAB GT SCH (08:54)
[2018-10-10] MEDS: ESCITALOPRAM OXALATE 10 MG TAB (LEXAPRO) FT SCH (08:54)
[2018-10-10 10:00] VITALS: BP 134/77
--- NOTE | 2018-10-10 10:40 | IPNPDOC ---
Date Seen The patient was seen on 10/10/18. Progress Note SUBJECTIVE: Patient tells me that his breathing is back to normal but he has noticed some bleeding from his G tube overnight and this morning. Otherwise patient denies chest pain, nausea, vomiting, fevers, chills, back pain OBJECTIVE PHYSICAL EXAMINATION: VITAL SIGNS: Please see below. GENERAL: Pleasant elderly man appears older than stated age sitting up in bed awake alert oriented speaking in complete sentences no acute distress, he has a raspy voice which is his baseline HEENT: Moist mucous membranes no elevation and CVP CARDIOVASCULAR: S1 S2 regular no additional heart sounds appreciated. RESPIRATORY: Clear to auscultation bilaterally. ABDOMINAL: Bowel sounds present abdomen soft and nontender, there is some fresh blood around his G-tube insertion site no active bleeding appreciated it is nontenderwithout erythema EXTREMITIES: No clubbing cyanosis or edema NEUROLOGICAL: Spontaneously moves all 4 extremities cranial 2 through 12 grossly intact no gross focal deficits appreciated PSYCHOLOGICAL: Appropriate LABORATORY DATA, MICROBIOLOGY: Please see below. IMAGING STUDIES: Chest x-ray:Discoid atelectasis in the right base linear fibrosis in the left base. No definite acute infiltrate. CT angiography chest:1. Minimal bilateral pulmonary embolism extending into the anterior right upper lobe and the medial lingula. 2. Superior endplate depression of L1 which is new since 07/16/2017 and is of uncertain age. 3. Resolution of bilateral pleural effusions since the prior study. 4. Slight interstitial prominence with moderate bilateral lower lobe atelectasis or consolidation, left greater than right which is similar to the prior study. 5. Borderline left hilar nodes which are slightly increased since the prior study. Vascular ultrasound:No evidence of deep venous thrombosis of the bilateral lower extremity femoral popliteal venous system. Right popliteal cyst measures 4.0 x 2.3 x 2.4 cm. ASSESSMENT AND PLAN: This is a 67-year-old man with hypoxic respiratory failure secondary to pulmonary embolism. PROBLEMS: 1. Hypoxic respiratory failure secondary to pulmonary embolism: Appears to be returning to his baseline respiratory status. I will discontinue his O2 at rest and monitor him. I would like to see him get up and work with physical therapy and check ambulating O2 sat, he does work with a walker at his baseline and has no baseline O2 requirement. He has been started on anticoagulation. His blood cultures have been negative per calcitonin is currently pending my suspicion for any pneumonia is quite low if his pro-calcitonin is not elevated we'll consider discontinuing antibiotics. The patient's pulmonary embolism this may be related to his history of tonsillar cancer he is status post radiation and chemotherapy. He has a relatively fresh G-tube for one month ago placement of the hospital. His hemoglobin is stable his bleeding is minimal given that this is a new PE I will CONTINUE his anticoagulation and monitor him closely. Should he have a hemodynamically significant bleed or significant drop in his hemoglobin would consider holding his anti-coagulation at that time and seeking assistance with placement of an IVC filter. 2. 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 He has history of esophageal stricture as a complication of this. He chronically has a raspy voice. He has chronic neck pain related to his radiation. He has difficu lty swallowing receives feeds via his G-tube which was placed 1 month ago at [facility] 3. Dyslipidemia: Continue statin and aspirin 4. Hypothyroidism: Continue with Synthroid 5. Anemia: Stable, as above Continue home ferrous gluconate 6. Anxiety: Continue with Lexapro 7. Osteoarthritis: Stable continue with pain control 8. Chronic Obstructive lung disease COPD: No evidence of acute decompensation we're providing him Mucinex and he does appear to have a cough. Continue with Symbicort. Hypoxic respiratory failure likely not related to his chronic lung disease but rather pulmonary embolism 9. Hypertension: Continue with metoprolol 10. Gastroesophageal reflux disease: Continue with ranitidine DVT prophylaxis: Pending resolution of O2 requirement, prior authorization of Eliquis, clearance PT, and resolution of bleeding around G-tube DISPOSITION: Possibly home within the next 24-48 hours. VS, I&O, 24H, [facility] Vital Signs/I&O Vital Signs Date Time Temp Pulse Resp B/P (MAP) Pulse Ox O2 Delivery O2 Flow Rate FiO2 10/10/18 08:55 18 91 10/10/18 08:54 79 152/79 10/10/18 06:00 98.1 2.0 10/08/18 04:17 Nasal Cannula I&O- Last 24 Hours up to 6 AM 10/10/18 06:00 Intake Total 1605 ml Output Total 340 ml Balance 1265 ml Laboratory Data 24H LABS Laboratory Tests 2 10/10/18 05:40: Immature Granulocyte % (Auto) 0.3, White Blood Count 6.7, Red Blood Count 3.88L, Hemoglobin 12.3L, Hematocrit 38.2L, Mean Corpuscular Volume 98.5H, Mean Corpuscular Hemoglobin 31.7, Mean Corpuscular Hemoglobin Concent 32.2, Red Cell Distribution Width 15.1H, Platelet Count 150, Neutrophils (%) (Auto) 73.2H, Lymphocytes (%) (Auto) 11.2L, Monocytes (%) (Auto) 12.0H, Eosinophils (%) (Auto) 2.7, Basophils (%) (Auto) 0.6, Neutrophils # (Auto) 4.9, Lymphocytes # (Auto) 0.8L, Monocytes # (Auto) 0.8, Eosinophils # (Auto) 0.2, Basophils # (Auto) 0.0, Nucleated Red Blood Cells % (auto) 0.0, Anion Gap 8, Glomerular Filtration Rate > 60.0, Blood Urea Nitrogen 11, Creatinine 0.73, Sodium Level 139, Potassium Level 3.9, Chloride Level 100, Carbon Dioxide Level 31, Calcium Level 8.5L CBC/BMP Laboratory Tests 10/10/18 05:40 Red Blood Count 3.88 L, Mean Corpuscular Volume 98.5 H, Mean Corpuscular Hemoglobin 31.7, Mean Corpuscular Hemoglobin Concent 32.2, Red Cell Distribution Width 15.1 H, Neutrophils (%) (Auto) 73.2 H, Lymphocytes (%) (Auto) 11.2 L, Monocytes (%) (Auto) 12.0 H, Eosinophils (%) (Auto) 2.7, Basophils (%) (Auto) 0.6, Neutrophils # (Auto) 4.9, Lymphocytes # (Auto) 0.8 L, Monocytes # (Auto) 0.8, Eosinophils # (Auto) 0.2, Basophils # (Auto) 0.0, Calcium Level 8.5 L Microbiology Microbiology 10/08/18 Blood Culture - Preliminary, Resulted No Growth after 48 hours. All Specime... 10/08/18 Gram Stain - Final, Complete 10/08/18 Sputum Culture - Final, Complete Yeast Like Organism SUNIL SERNA MD Oct 10, 2018 10:40
[2018-10-10 14:00] VITALS: BP 135/78
[2018-10-10 18:00] VITALS: BP 131/85
[2018-10-10] MEDS: raNITIdine SYRUP 150 MG/10 ML UDC GT SCH (20:07)
[2018-10-10 22:00] VITALS: BP 145/74
[2018-10-11] MEDS: oxyCODONE 5MG TAB GT PRN ×4 (00:07→13:12)
[2018-10-11 02:00] VITALS: BP 129/80
[2018-10-11] MEDS: IPRATROPIUM 0.5MG/ALBUTEROL 2.5MG INH SOL UD 3ML (DUONEB)(J7620) NEB SCH ×3 (02:00→13:23)
[2018-10-11] MEDS: PIPERACILLIN/TAZOBACTAM SOD 4.5 GM in D5W MINI-BAG PLUS 50 ML IV SCH ×2 (04:26→09:13)
[2018-10-11 06:00] VITALS: BP 116/74
[2018-10-11] MEDS: LEVOTHYROXINE 100MCG TABLET (0.1MG) GT SCH (06:25)
[2018-10-11] MEDS: guaiFENesin 200 MG TAB PO SCH ×2 (06:25→13:11)
[2018-10-11 08:17] LABS: HEMATOCRIT 38.2 % (42.0-52.0); HEMOGLOBIN 12.7 g/dl (13.5-17.5); MEAN CORPUSCULAR HEMOGLOBIN 32.2 pg (27.0-33.0); MEAN CORPUSCULAR HGB CONC 33.2 g/dl (32.0-36.5); MEAN CORPUSCULAR VOLUME 96.7 fl (80.0-96.0); PLATELET COUNT, AUTOMATED 155 10^3/uL (150-450); RED BLOOD COUNT 3.95 10^6/uL (4.30-6.10)
[2018-10-11 08:45] LABS: BLOOD UREA NITROGEN 11 MG/DL (7-18); CALCIUM LEVEL 8.8 MG/DL (8.8-10.2); CARBON DIOXIDE LEVEL 32 MEQ/L (21-32); CHLORIDE LEVEL 100 MEQ/L (98-107); GLOMERULAR FILTRATION RATE > 60.0 (>49); GLUCOSE, FASTING 103 MG/DL (70-100); POTASSIUM SERUM 3.7 MEQ/L (3.5-5.1); SODIUM LEVEL 138 MEQ/L (136-145)
[2018-10-11] MEDS: ATORVASTATIN 20 MG TAB GT SCH (09:12)
[2018-10-11] MEDS: ASPIRIN 81 MG CHEW TABLET FT SCH (09:12)
[2018-10-11] MEDS: DOCUSATE SOD LIQ 100MG/10ML UDC GT SCH (09:12)
[2018-10-11 09:13] VITALS: BP 125/78
[2018-10-11] MEDS: ESCITALOPRAM OXALATE 10 MG TAB (LEXAPRO) FT SCH (09:13)
[2018-10-11] MEDS: APIXABAN 5 MG TAB (ELIQUIS) PO SCH (09:13)
[2018-10-11] MEDS: METOPROLOL TART 25 MG TABLET FT SCH (09:13)
[2018-10-11 10:00] VITALS: BP 134/77
[2018-10-11] MEDS ORDERED: ELIQ5TAB PO (10:28)
--- NOTE | 2018-10-11 16:31 | DS.PDOC ---
Discharge Summary General Date of Admission October 08, 2018 at 02:58 Date of Discharge 10/11/18 Discharge Summary PROCEDURES PERFORMED DURING STAY: None. ADMITTING/DISCHARGE DIAGNOSES: Minimal bilateral pulmonary embolism History of right tonsillar cancer status post radiation and chemotherapy Esophageal stricture secondary to above, status post G-tube History of COPD History of hypertension Hypothyroidism COMPLICATIONS/CHIEF COMPLAINT: Pulmonary Emboli. HISTORY OF PRESENT ILLNESS: . 67 year old male with history of tonsillar cancer s/p chemo and radiation presented to the ER with c/o acute onset of SOB for one day. Pt also reported productive cough with large amount yellow-brownish sputum and subjective fever for few days. He denied any other change in his usual state of health. No recent travel or surgical procedures were endorsed. In the ER, the patient was hypoxic; O2 sat 84% in RA; requiring 2L O2 by NC. Vitals dhaval; afebrile. WBC 19K. CTA Chest was notable for minimal bilateral pulmonary embolism extending into the anterior right upper lobe and medial lingula. The patient was admitted to the hospitalist service for further evaluation and management. During hospitalization, the patient was started on Eliquis for anticoagulation. The patient's respiratory status improved, and he was able to ambulate with physical therapy without any acute complaints. He did not have any acute concerns of bleeding and his hemoglobin remained stable. At this time, the patient states that he is feeling back to his baseline and is eager to return home. I have advised the patient to follow-up with his primary care physician within 7 days. Lastly, the patient is to return to the ER for any acute emergencies. DISCHARGE MEDICATIONS: Please see below. ALLERGIES: Please see below. PHYSICAL EXAMINATION ON DISCHARGE: VITAL SIGNS: Please see below. GENERAL: Awake, alert, oriented. In no acute distress. Able to speak in full sentences. HEENT: Moist mucous membranes no elevation and CVP CARDIOVASCULAR: S1 S2 regular no additional heart sounds appreciated. RESPIRATORY: Clear to auscultation bilaterally. ABDOMINAL: Bowel sounds present abdomen soft and nontender. +G-Tube, with no surrounding erythema, bleeding, or drainage noted. EXTREMITIES: No clubbing cyanosis or edema PSYCHOLOGICAL: Appropriate LABORATORY DATA: Please see below. IMAGING: Chest x-ray: Two views. History: Dyspnea and cough. Comparison chest x-ray: January 14, 2018. Findings: EKG monitoring electrodes overlie the chest. Oxygen delivery tubing is seen. Right hemidiaphragm is slightly elevated. There is linear fibrosis in the left lower lobe. An area of new plate-like atelectasis is seen in the right base medially. No infiltrate is appreciated. Impression: Discoid atelectasis in the right base linear fibrosis in the left base. No definite acute infiltrate. EXAM: CT Angiography Chest With Contrast EXAM DATE/TIME: 10/08/2018 1:54 AM CLINICAL HISTORY: 67 years old, male; Signs and symptoms; Dyspnea and shortness of breath; Additional info: Dysp TECHNIQUE: Imaging protocol: Axial computed tomographic angiography images of the chest with intravenous contrast using CT angiography protocol. Coronal and sagittal reformatted images were created and reviewed. 3D rendering: MIP reconstructed images were created and reviewed. Radiation optimization: All CT scans at this facility use at least one of these dose optimization techniques: automated exposure control; mA and/or kV adjustment per patient size (includes targeted exams where dose is matched to clinical indication); or iterative reconstruction. Contrast material: ISO; Contrast volume: 75 ml; Contrast route: AC; COMPARISON: CT ANGIO CHEST 07/16/2017 11:44 AM FINDINGS: Pulmonary arteries: The main pulmonary artery measures 30 mm. Minimal pulmonary embolism extending into the anterior right upper lobe and minimal pulmonary embolism extending into the medial lingula. Aorta: The ascending thoracic aorta measures 34 mm. Lungs: Slight interstitial prominence with moderate bilateral lower lobe atelectasis or consolidation, left greater than right. Pleural space: Normal. No pneumothorax. No pleural effusion. Heart: Normal. No cardiomegaly. No pericardial effusion. Lymph nodes: Borderline left hilar nodes. Bones/joints: Slight superior endplate depression of L1 of uncertain age. Soft tissues: Unremarkable. IMPRESSION: 1. Minimal bilateral pulmonary embolism extending into the anterior right upper lobe and the medial lingula. 2. Superior endplate depression of L1 which is new since 07/16/2017 and is of uncertain age. 3. Resolution of bilateral pleural effusions since the prior study. 4. Slight interstitial prominence with moderate bilateral lower lobe atelectasis or consolidation, left greater than right which is similar to the prior study. 5. Borderline left hilar nodes which are slightly increased since the prior study. Bilateral lower extremity Duplex Doppler venous ultrasound: Real time compression and duplex Doppler interrogation of the bilateral lower extremity deep venous system is performed. Bilaterally, the common femoral, superficial femoral and popliteal veins are fully compressible with transducer pressure and demonstrate normal spontaneous and phasic flow, without evidence of deep venous thrombosis. Impression: No evidence of deep venous thrombosis of the bilateral lower extremity femoral popliteal venous system. Right popliteal cyst measures 4.0 x 2.3 x 2.4 cm. PROGNOSIS: Fair ACTIVITY: As tolerated. DIET: As tolerated DISCHARGE PLAN: DISPOSITION: 01 Home, Self-Care. DISCHARGE INSTRUCTIONS: I have advised the patient to follow-up with his primary care physician within 7 days. Lastly, the patient is to return to the ER for any acute emergencies. DISCHARGE CONDITION: Stable. TIME SPENT ON DISCHARGE: Greater than 30 minutes. Vital Signs/I&Os Vital Signs Date Time Temp Pulse Resp B/P (MAP) Pulse Ox O2 Delivery O2 Flow Rate FiO2 10/11/18 13:42 16 10/11/18 10:00 98.5 72 134/77 (96) 92 10/10/18 06:00 2.0 10/08/18 04:17 Nasal Cannula I&O- Last 24 Hours up to 6 AM 10/11/18 06:00 Intake Total 1774 ml Output Total 0 ml Balance 1774 ml Laboratory Data Labs 24H Laboratory Tests 2 10/11/18 08:03: Nucleated Red Blood Cells % (auto) 0.0, Anion Gap 6L, Glomerular Filtration Rate > 60.0, Blood Urea Nitrogen 11, Creatinine 0.80, Sodium Level 138, Potassium Level 3.7, Chloride Level 100, Carbon Dioxide Level 32, Calcium Level 8.8 CBC/BMP Laboratory Tests 10/11/18 08:03 Red Blood Count 3.95 L, Mean Corpuscular Volume 96.7 H, Mean Corpuscular Hemoglobin 32.2, Mean Corpuscular Hemoglobin Concent 33.2, Red Cell Distribution Width 14.9 H, Calcium Level 8.8 Microbiology Microbiology 10/08/18 Blood Culture - Preliminary, Resulted No Growth after 72 hours. All specime... 10/08/18 Gram Stain - Final, Complete 10/08/18 Sputum Culture - Final, Complete Yeast Like Organism Discharge Medications Scheduled Apixaban (Eliquis) 5 Mg Tablet, 5 MG PO ASDIRECTED 10 MG (2 TABS) TWICE PER DAY FOR 7 DAYS THEN 5 MG (1 TAB) TWICE PER DAY Atorvastatin Calcium (Atorvastatin Calcium) 40 Mg Tablet, 40 MG FT DAILY, (Reported) Escitalopram Oxalate (Escitalopram Oxalate) 10 Mg Tab, 10 MG FT DAILY, (Reported) Ferrous Gluconate (Ferrous Gluconate) 324 Mg Tablet, 324 MG FT BIDWM, (Reported) Lactose-Reduced Food (Ensure Plus) 237 Ml Liquid, 3 CAN FT TID, (Reported) Levothyroxine Sodium (Levothyroxine Sodium) 100 Mcg Tab, 100 MCG FT DAILY, (Reported) Metoprolol Tartrate (Metoprolol Tartrate) 25 Mg Tablet, 25 MG FT BID, (Reported) Multivit-Minerals/Ferrous Gluc (Multi-Rashad Liquid) 9 Mg/15 Ml Liquid, 15 ML FT BIDWM, (Reported) Ranitidine Hcl (Ranitidine HCl) 15 Mg/Ml Syrp, 150 MG FT QHS, (Reported) Scheduled PRN Albuterol Sulf (Albuterol Sulfate) 2.5 Mg/3 Ml Vial.neb, 2.5 MG INH Q4H PRN for SHORTNESS OF BREATH, (Reported) Budesonide/Formoterol (Symbicort 160-4.5 Mcg Inhaler) 6 Gm Hfa.aer.ad, 2 PUFF INH DAILY PRN for SHORTNESS OF BREATH, (Reported) Oxycodone Hcl (Oxycodone HCl) 15 Mg Tablet, 15 MG FT Q4H PRN for PAIN, (Reported) Allergies Coded Allergies: latex (Verified Allergy, Intermediate, hives, 10/07/18) JARETH GAMBINO MD Oct 11, 2018 16:31
[2018-10-12 08:15] LABS: DRVV SCREEN 102.6 SEC
[2018-10-12 08:17] LABS: PTT LUPUS TYPE ANTICOAG SCREEN 2.5 (0-1.2)
[2018-10-12 08:23] LABS: DRVV CONFIRM 92.7 SEC; LUPUS CONFIRM RATIO 2.4
[2018-10-12 08:26] LABS: NORMALIZED RATIO 1.04 (0.00-1.20)
== END 2018-10-11 13:58 | disposition home or self-care (01) | DRG 175 ==
LOC: M ED 23:21 → M ED INP 10-08 02:58 → M MSPAV 10-08 04:40
PROVIDERS: ADMIT Internal Medicine; ATTEND Internal Medicine
DX: I26.99 Other pulmonary embolism without acute cor pulmonale (principal); J96.01 Acute respiratory failure with hypoxia; J18.9 Pneumonia, unspecified organism; J44.9 Chronic obstructive pulmonary disease, unspecified; I10 Essential (primary) hypertension; E03.9 Hypothyroidism, unspecified; K22.2 Esophageal obstruction; Z85.818 Personal history of malignant neoplasm of other sites of lip, oral cavity, and pharynx; Z79.899 Other long term (current) drug therapy; Z91.040 Latex allergy status; E78.5 Hyperlipidemia, unspecified; M19.90 Unspecified osteoarthritis, unspecified site; F41.9 Anxiety disorder, unspecified; Z93.1 Gastrostomy status; D64.9 Anemia, unspecified; K21.9 Gastro-esophageal reflux disease without esophagitis

== ENCOUNTER 2018-10-16 11:15 | Inpatient (IN) | payer MEDICARE, MEDICAID ==
[~2018-10-16] VITALS: Ht 170.2 cm; Wt 70.9 kg
[~2018-10-16 11:15] MED LIST changes: +ASPI81CH31 FT; +ATOR40TA75 FT; +BPRO1LIQ FT; +ECOT81TA5 FT; +ELIQ5TAB PO; +ENSULIQ9 FT; +FERR32TA FT; +METO1TAB87 FT; +OXYC15TA76 FT; +RANI1SYP FT
[2018-10-16 11:46] LABS: BASO % 0.7 % (0.0-1.0); EOS # 0.1 10^3/uL (0.0-0.50); EOS % 2.5 % (0.0-3.0); HEMATOCRIT 37.1 % (42.0-52.0); HEMOGLOBIN 11.8 g/dl (13.5-17.5); LYMPH # 0.5 10^3/uL (1.5-4.5); LYMPH % 9.3 % (24.0-44.0); MEAN CORPUSCULAR HEMOGLOBIN 31.7 pg (27.0-33.0); MEAN CORPUSCULAR HGB CONC 31.8 g/dl (32.0-36.5); MEAN CORPUSCULAR VOLUME 99.7 fl (80.0-96.0); MONO % 18.5 % (0.0-5.0); NEUTROPHILS # 3.8 10^3/uL (1.8-7.7); NEUTROPHILS % 68.3 % (36.0-66.0); PLATELET COUNT, AUTOMATED 222 10^3/uL (150-450); RED BLOOD COUNT 3.72 10^6/uL (4.30-6.10); WHITE BLOOD COUNT 5.6 10^3/uL (4.0-10.0)
[2018-10-16] MEDS ORDERED: NS 1,000 ML IV SCH (12:15)
[2018-10-16 12:17] LABS: ALBUMIN 2.9 GM/DL (3.2-5.2); ALT/SGPT 36 U/L (12-78); BILIRUBIN,DIRECT 0.3 MG/DL (0.0-0.2); BILIRUBIN,TOTAL 0.9 MG/DL (0.2-1.0); BLOOD UREA NITROGEN 10 MG/DL (7-18); CALCIUM LEVEL 8.8 MG/DL (8.8-10.2); CARBON DIOXIDE LEVEL 35 MEQ/L (21-32); CHLORIDE LEVEL 97 MEQ/L (98-107); CK-MB VALUE MASS 1.1 NG/ML (<3.6); CPK CREATINE PHOSPHOKINASE 121 U/L (39-308); CREATININE FOR GFR 0.92 MG/DL (0.70-1.30); GLOMERULAR FILTRATION RATE > 60.0 (>49); GLUCOSE, FASTING 119 MG/DL (70-100); MB/CK RELATIVE INDEX 0.91 (< OR =4); POTASSIUM SERUM 4.3 MEQ/L (3.5-5.1); SODIUM LEVEL 135 MEQ/L (136-145); TOTAL PROTEIN 6.6 GM/DL (6.4-8.2); TROPONIN I < 0.02 NG/ML (< 0.10)
[2018-10-16 12:35] LABS: INR 1.13; PROTHROMBIN TIME 14.7 SECONDS (12.1-14.4)
[2018-10-16 12:50] LABS: ABG HCO3 34.5 MEQ/L (22.0-26.0); ABG O2 SATURATION 94.7 % (95.0-99.0); ABG PARTIAL PRESSURE CO2 58.6 mmHg (35.0-45.0); ABG PARTIAL PRESSURE O2 75.7 mmHg (75.0-100.0); ABG STANDARD HCO3 31.7 MEQ/L (22.0-26.0); ABG TOTAL CO2 36.3 MEQ/L (23.0-31.0); ABG pH (ARTERIAL) 7.388 UNITS (7.350-7.450)
[2018-10-16] MEDS ORDERED: cefTRIAXone SOD 1 GM in D5W MINI-BAG PLUS 50 ML IV ONE (13:45)
--- NOTE | 2018-10-16 14:04 | REP ---
Chest two views HISTORY: Weakness Comparison: 10/07/2018 There is elevation of the right hemidiaphragm. Linear densities are present in the left lower lobe consistent with scarring. Parenchymal density is present in the right lower lobe consistent with atelectasis or infiltrate. A small right pleural effusion is present. The heart is normal in size. The pulmonary vasculature is normal in appearance. The bony structure is intact. IMPRESSION: 1. Right lower lobe atelectasis or infiltrate. 2. Left lower lobe scarring. 3. Small right pleural effusion. Electronically Signed by Riki La MD 10/16/2018 01:56 P
--- NOTE | 2018-10-16 15:08 | REP ---
LIMITED ABDOMEN ULTRASOUND: HISTORY: Swelling at G-tube insertion site. There is no fluid collection or mass in the left lower abdomen at the G-tube insertion site. There is no edema. IMPRESSION: There is no fluid collection or mass at the G-tube insertion site. Electronically Signed by Riki La MD 10/16/2018 03:44 P
[2018-10-16] MEDS ORDERED: ELIQ5TAB PO (15:20)
[2018-10-16] MEDS ORDERED: OXYC-517 PO (15:20)
[2018-10-16] MEDS ORDERED: LACT10SO3 PEG (15:21)
[2018-10-16] MEDS ORDERED: guaiFENesin SYRUP 200 MG/10 ML UDC PO PRN (15:45)
[2018-10-16] MEDS ORDERED: ALBUTEROL SULFATE 2.5 MG/0.5 ML INH NEB SOLN INH PRN (15:45)
[2018-10-16] MEDS ORDERED: SYMBICORT 160/4.5MCG INHALER 6GM INH PRN (15:45)
--- NOTE | 2018-10-16 15:55 | HPEPDOC ---
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 Patient reports that this is currently subsided. He also noted that this occurred one week ago. Patient denied any weakness of his hand. Denied any numbness or willing reports that this is more of a spasm. Patient has also reported that hes been having a productive cough with white sputum without any blood. Reports some breathing difficulty. In the emergency room, patient was found to be hypoxic and requiring supplemental oxygen via nasal cannula. Currently patient denies chest pain or palpitations. Denies any lower extremity swelling. Denies any shortness of breath when lying flat on his back. Patient denies any fevers or chills in the last several days Patient denies nausea, vomiting, abdominal pain, diarrhea or discomfort with urination. He does report constipation. Patient takes everything via G-tube. . He does report leaking for about 1 week duration. . He notes that his G-tube was changed possibly one month ago at [facility]. Denies any pain or swelling around the site. Denies any bleeding around the site. Patient denies any difficulty walking. He lives with his son. Reports that his weight has been consistent and his appetite has been good. Home Medications Scheduled Apixaban (Eliquis) 5 Mg Tablet, 10 MG PO BID, (Reported) START 10/11/18 FOR 7 DAYS THEN DECREASE TO 5MG BID Apixaban (Eliquis) 5 Mg Tablet, 5 MG PO BID, (Reported) BEGIN ON 10/18 AFTER 10MG BID DOSE Atorvastatin Calcium (Atorvastatin Calcium) 40 Mg Tablet, 40 MG FT DAILY, (Reported) Escitalopram Oxalate (Escitalopram Oxalate) 10 Mg Tab, 10 MG FT DAILY, (Reported) Lactose-Reduced Food (Ensure Plus) 237 Ml Liquid, 3 CAN FT TID, (Reported) Lactulose (Lactulose) 10 Gm/15 Ml Solution, 30 ML PEG DAILY for constipation, (Reported) Levothyroxine Sodium (Levothyroxine Sodium) 100 Mcg Tab, 100 MCG FT DAILY, (Reported) Metoprolol Tartrate (Metoprolol Tartrate) 25 Mg Tablet, 25 MG FT BID, (Reported) Scheduled PRN Albuterol Sulf (Albuterol Sulfate) 2.5 Mg/3 Ml Vial.neb, 2.5 MG INH Q4H PRN for SHORTNESS OF BREATH, (Reported) Budesonide/Formoterol (Symbicort 160-4.5 Mcg Inhaler) 6 Gm Hfa.aer.ad, 2 PUFF INH DAILY PRN for SHORTNESS OF BREATH, (Reported) Oxycodone HCl (Oxycodone HCl) 5 Mg Tablet, 5 MG PO Q4H PRN for PAIN, (Reported) Allergies Coded Allergies: latex (Verified Allergy, Intermediate, hives, 10/07/18) Past Medical History Medical History Tonsillar CA (2010; s/p Chemo and radiation), Esophageal strictures 2/2 radiati on (s/p Dilation 2013; s/p PEG tube 2016), DLP, COPD, Recent PE (on Eliquis), 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 3-4 times. Most recent which was one month ago. 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 Some rhonchi are appreciated at right lung base - Abdomen: Soft, Non-distended, Non-tender, +PEG; appears to be loose; bumper has been pushed closer to abdomen and dressing has been changed - Extremities: No lower extremity edema, No calf tenderness - Neuro: No focal motor or sensory deficit - Skin: No visible rashes Laboratory Data Labs 24H Laboratory Tests 2 10/16/18 11:37: Immature Granulocyte % (Auto) 0.7, White Blood Count 5.6, Red Blood Count 3.72L, Hemoglobin 11.8L, Hematocrit 37.1L, Mean Corpuscular Volume 99.7H, Mean Corpuscular Hemoglobin 31.7, Mean Corpuscular Hemoglobin Concent 31.8L, Red Cell Distribution Width 15.1H, Platelet Count 222, Neutrophils (%) (Auto) 68.3H, Lymphocytes (%) (Auto) 9.3L, Monocytes (%) (Auto) 18.5H, Eosinophils (%) (Auto) 2.5, Basophils (%) (Auto) 0.7, Neutrophils # (Auto) 3.8, Lymphocytes # (Auto) 0.5L, Monocytes # (Auto) 1.0H, Eosinophils # (Auto) 0.1, Basophils # (Auto) 0.0, Nucleated Red Blood Cells % (auto) 0.0, Prothrombin Time 14.7H, Prothromb Time International Ratio 1.13, Anion Gap 3L, Glomerular Filtration Rate > 60.0, Lactic Acid Level 2.0, Calcium Level 8.8, Aspartate Amino Transf (AST/SGOT) 27, Alanine Aminotransferase (ALT/SGPT) 36, Alkaline Phosphatase 90, Total Bilirubin 0.9, Direct Bilirubin 0.3H, Total Creatine Kinase 121, Creatine Kinase MB 1.1, Creatine Kinase MB Relative Index 0.91, Troponin I < 0.02, Total Protein 6.6, Albumin 2.9L, Albumin/Globulin Ratio 0.78L, Thyroid Stimulating Hormone (TSH) 4.980H 10/16/18 12:40: Blood Gas Bicarbonate Standard 31.7H, Arterial Blood pH 7.388, Arterial Blood Partial Pressure CO2 58.6H, Arterial Blood Partial Pressure O2 75.7, Arterial Blood Total CO2 36.3H, Arterial Blood HCO3 34.5H, Arterial Blood Base Excess 8.0H, Arterial Blood Oxygen Saturation 94.7L CBC/BMP Laboratory Tests 10/16/18 11:37 Red Blood Count 3.72 L, Mean Corpuscular Volume 99.7 H, Mean Corpuscular Hemoglobin 31.7, Mean Corpuscular Hemoglobin Concent 31.8 L, Red Cell Distribution Width 15.1 H, Neutrophils (%) (Auto) 68.3 H, Lymphocytes (%) (Auto) 9.3 L, Monocytes (%) (Auto) 18.5 H, Eosinophils (%) (Auto) 2.5, Basophils (%) (Auto) 0.7, Neutrophils # (Auto) 3.8, Lymphocytes # (Auto) 0.5 L, Monocytes # (Auto) 1.0 H, Eosinophils # (Auto) 0.1, Basophils # (Auto) 0.0 Microbiology Microbiology 10/16/18 Wound Culture, Received Pending Plan / VTE VTE Prophylaxis Ordered?: Yes Plan Plan Acute hypoxic respiratory failure - likely 2/2 community acquired pneumonia; coverage for atypicals and MRSA - Patient has had a recent hospitalization for pulmonary embolism - Presented to the ER with complaints of productive cough - Upon arrival, patient was found to require supplemental oxygen via nasal cannula - Physical does reveal right lower lung field rhonchi - No significant leukocytosis or lactic acidosis - CXR 10/16: 1. Right lower lobe atelectasis or infiltrate. 2. Left lower lobe scarring. 3. Small right pleural effusion. - Will check blood cultures, sputum cultures and respiratory panel - Will start patient on Ceftaroline and Azithromycin (MRSA / Atypical coverage) Erythema around G-tube site - likely 2/2 local irritation, less likely 2/2 infection - Esophageal strictures 2/2 radiation (s/p Dilation 2013; s/p PEG tube 2016) - Physical, had revealed that the G-tube bumper was loose; this has been tightened bedside - Continue with G-tube feedings - Will continue with antibiotics as stated above Tonsillar CA - Dx 2010 - s/p Chemo and radiation DLP - c/w Atorvastatin COPD - No evidence of exacerbation - c/w Inhaled therapy as ordered Recent PE - Will c/w full anticoagulation with Eliquis 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
[2018-10-16] MEDS: AZITHROMYCIN INJ 500 MG, VIAL MATE ADAPTER 1 EACH in D5W 250 ML IV SCH (16:56)
[2018-10-16] MEDS: NS 1,000 ML IV SCH (16:56)
[2018-10-16 17:35] VITALS: BP 112/65
[2018-10-16] MEDS: oxyCODONE 5MG TAB PO PRN (18:20)
[2018-10-16] MEDS: CEFTAROLINE FOSAMIL 600 MG in D5W MINI-BAG PLUS 50 ML IV SCH (19:03)
[2018-10-16] MEDS: METOPROLOL TART 25 MG TABLET FT SCH (21:00)
[2018-10-16 21:21] VITALS: BP 118/64
[2018-10-16] MEDS: APIXABAN 5 MG TAB (ELIQUIS) PO SCH (21:30)
--- NOTE | 2018-10-16 21:56 | ECGEPIP ---
[facility] - ED Test Date: 2018-10-16 Pat Name: JERZY GAVIN Department: Room: - Gender: Male [employer] Rep: CT : 1950 Requested By: Michael Pino Order Number: [id number] Reading MD: Nestor Macdonald Measurements Intervals [place] Rate: 66 P: 23 KS: 149 QRS: QRSD: 81 T: 2 QT: 379 QTc: 398 Interpretive Statements SINUS RHYTHM Nonspecific ST-T wave abnormalities BORDERLINE LEFT AXIS DEVIATION Electronically Signed on 10-16-2018 21:56:02 EDT by Nestor Macdonald
[2018-10-17] MEDS: NS 1,000 ML IV SCH (04:12)
[2018-10-17] MEDS: oxyCODONE 5MG TAB PO PRN ×4 (04:13→20:07)
[2018-10-17] MEDS: LEVOTHYROXINE 100MCG TABLET (0.1MG) PEG SCH (05:51)
[2018-10-17] MEDS: CEFTAROLINE FOSAMIL 600 MG in D5W MINI-BAG PLUS 50 ML IV SCH ×2 (05:52→17:07)
[2018-10-17 06:46] VITALS: BP 116/62
[2018-10-17 07:49] LABS: BASO % 0.7 % (0.0-1.0); EOS # 0.2 10^3/uL (0.0-0.50); EOS % 3.9 % (0.0-3.0); HEMATOCRIT 34.4 % (42.0-52.0); HEMOGLOBIN 10.6 g/dl (13.5-17.5); LYMPH # 0.5 10^3/uL (1.5-4.5); LYMPH % 9.2 % (24.0-44.0); MEAN CORPUSCULAR HEMOGLOBIN 30.4 pg (27.0-33.0); MEAN CORPUSCULAR HGB CONC 30.8 g/dl (32.0-36.5); MEAN CORPUSCULAR VOLUME 98.6 fl (80.0-96.0); MONO % 17.8 % (0.0-5.0); NEUTROPHILS # 3.6 10^3/uL (1.8-7.7); NEUTROPHILS % 67.7 % (36.0-66.0); PLATELET COUNT, AUTOMATED 213 10^3/uL (150-450); RED BLOOD COUNT 3.49 10^6/uL (4.30-6.10); WHITE BLOOD COUNT 5.4 10^3/uL (4.0-10.0)
[2018-10-17 08:08] LABS: BLOOD UREA NITROGEN 7 MG/DL (7-18); CALCIUM LEVEL 8.1 MG/DL (8.8-10.2); CARBON DIOXIDE LEVEL 32 MEQ/L (21-32); CHLORIDE LEVEL 103 MEQ/L (98-107); CREATININE FOR GFR 0.61 MG/DL (0.70-1.30); GLOMERULAR FILTRATION RATE > 60.0 (>49); GLUCOSE, FASTING 93 MG/DL (70-100); MAGNESIUM LEVEL 2.3 MG/DL (1.8-2.4); POTASSIUM SERUM 4.1 MEQ/L (3.5-5.1); SODIUM LEVEL 141 MEQ/L (136-145)
[2018-10-17] MEDS: APIXABAN 5 MG TAB (ELIQUIS) PO SCH ×2 (09:20→20:07)
[2018-10-17] MEDS: METOPROLOL TART 25 MG TABLET FT SCH ×2 (09:20→20:11)
[2018-10-17] MEDS: ESCITALOPRAM OXALATE 10 MG TAB (LEXAPRO) FT SCH (09:20)
[2018-10-17] MEDS: ATORVASTATIN 20 MG TAB PEG SCH (09:20)
[2018-10-17] MEDS: LACTULOSE 20 GM/30 ML SYRUP UD PEG SCH (09:21)
--- NOTE | 2018-10-17 10:42 | IPNPDOC ---
Text Note Date of Service The patient was seen on 10/17/18. 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 In the emergency room, patient was suspected of having a right lower lobe pneumonia and was admitted to hospitalist service for further evaluation, treatment. . He was also reporting leaking from his PEG tube site. Patient was seen and examined at the bedside. This morning patient reports that his breathing is doing better. He denies any significant production of sputum. Denies chest pain or palpitations. He notes that the leaking around his PEG tube site has resolved. Denies nausea, vomiting, constipation, diarrhea or discomfort with urination Objective: Vitals (See below) General: Lying in bed, no acute distress, comfortable, AAOx3 HEENT: NC, AT CVS: RRR, +S1S2 Lungs: Fair air entry b/l, auscultation without rhonchi, rales or wheezing Abdomen: Soft, ND, NT, +PEG (area of erythema has improved) Extremities: - Edema, - Calf tenderness Assessment and plan: Acute hypoxic respiratory failure - likely 2/2 community acquired pneumonia; coverage for atypical pneumonia and MRSA pneumonia - Patient has had a recent hospitalization for PE and had presented to the ER with complaints of productive cough - Currently, he reports he has had an improvement in his cough - c/w Supplemental oxygen - Physical with improved aeration - No significant leukocytosis or lactic acidosis - CXR 10/16: 1. Right lower lobe atelectasis or infiltrate. 2. Left lower lobe scarring. 3. Small right pleural effusion. - Blood cultures, sputum cultures and respiratory panel remain pending - c/w Ceftaroline and Azithromycin (MRSA / Atypical coverage) Improving erythema around G-tube site - likely 2/2 local irritation, less likely 2/2 infection - Esophageal strictures 2/2 radiation (s/p Dilation 2013; s/p PEG tube 2016) - G-tube bumper had been adjusted; currently does not experience any leaking - Continue with G-tube feedings - Will continue with antibiotics as stated above Tonsillar CA - Dx 2010 - s/p Chemo and radiation DLP - c/w Atorvastatin COPD - No evidence of exacerbation - c/w Inhaled therapy as ordered Recent PE - c/w full anticoagulation with Eliquis 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 - Has had trans-bronchial biopsy completed in the past Hypothyroidism - c/w Levothyroxine Anemia - Hg appears to be at baseline - Will continue to follow Anxiety - c/w Escitalopram Lyme disease - No active history Osteoarthritis / Chronic neck pain - c/w oxycodone based on home regimen DVT prophylaxis - c/w full anticoagulation with Eliquis Disposition: - Anticipate discharge within 24-48 hours VS,Tara, I+O VS, Tara, I+O Laboratory Tests 10/16/18 11:37 Red Blood Count 3.72 L, Mean Corpuscular Volume 99.7 H, Mean Corpuscular Hemoglobin 31.7, Mean Corpuscular Hemoglobin Concent 31.8 L, Red Cell Distribution Width 15.1 H, Neutrophils (%) (Auto) 68.3 H, Lymphocytes (%) (Auto) 9.3 L, Monocytes (%) (Auto) 18.5 H, Eosinophils (%) (Auto) 2.5, Basophils (%) (Auto) 0.7, Neutrophils # (Auto) 3.8, Lymphocytes # (Auto) 0.5 L, Monocytes # (Auto) 1.0 H, Eosinophils # (Auto) 0.1, Basophils # (Auto) 0.0 10/17/18 07:32 Red Blood Count 3.49 L, Mean Corpuscular Volume 98.6 H, Mean Corpuscular Hemo globin 30.4, Mean Corpuscular Hemoglobin Concent 30.8 L, Red Cell Distribution Width 15.4 H, Neutrophils (%) (Auto) 67.7 H, Lymphocytes (%) (Auto) 9.2 L, Monocytes (%) (Auto) 17.8 H, Eosinophils (%) (Auto) 3.9 H, Basophils (%) (Auto) 0.7, Neutrophils # (Auto) 3.6, Lymphocytes # (Auto) 0.5 L, Monocytes # (Auto) 1.0 H, Eosinophils # (Auto) 0.2, Basophils # (Auto) 0.0, Calcium Level 8.1 L Vital Signs Date Time Temp Pulse Resp B/P (MAP) Pulse Ox O2 Delivery O2 Flow Rate FiO2 10/17/18 09:21 20 10/17/18 09:20 67 10/17/18 06:46 98.1 116/62 (80) 98 1.5 10/16/18 17:00 Nasal Cannula 10/16/18 11:31 92 I&O- Last 24 Hours up to 6 AM 10/17/18 06:00 Intake Total 1050 ml Output Total 700 ml Balance 350 ml CARLOS BECKER MD Oct 17, 2018 10:42
[2018-10-17 14:00] VITALS: BP 149/76
[2018-10-17] MEDS: AZITHROMYCIN INJ 500 MG, VIAL MATE ADAPTER 1 EACH in D5W 250 ML IV SCH (17:06)
[2018-10-17] MEDS ORDERED: MORPHINE 4 MG/ML 1ML VIAL/SYRINGE (J2270) IV ONE (19:00)
[2018-10-17 22:00] VITALS: BP 134/74
[2018-10-18] MEDS: oxyCODONE 5MG TAB PO PRN ×2 (02:15→06:41)
[2018-10-18] MEDS: LEVOTHYROXINE 100MCG TABLET (0.1MG) PEG SCH (05:23)
[2018-10-18] MEDS: CEFTAROLINE FOSAMIL 600 MG in D5W MINI-BAG PLUS 50 ML IV SCH (05:23)
[2018-10-18 06:00] VITALS: BP 146/84
[2018-10-18 06:03] LABS: BASO % 0.5 % (0.0-1.0); EOS # 0.3 10^3/uL (0.0-0.50); EOS % 4.8 % (0.0-3.0); HEMATOCRIT 35.4 % (42.0-52.0); HEMOGLOBIN 11.3 g/dl (13.5-17.5); LYMPH # 0.7 10^3/uL (1.5-4.5); MEAN CORPUSCULAR HEMOGLOBIN 30.9 pg (27.0-33.0); MEAN CORPUSCULAR HGB CONC 31.9 g/dl (32.0-36.5); MEAN CORPUSCULAR VOLUME 96.7 fl (80.0-96.0); MONO # 0.8 10^3/uL (0.0-0.8); MONO % 12.3 % (0.0-5.0); NEUTROPHILS # 4.3 10^3/uL (1.8-7.7); NEUTROPHILS % 70.1 % (36.0-66.0); PLATELET COUNT, AUTOMATED 245 10^3/uL (150-450); RED BLOOD COUNT 3.66 10^6/uL (4.30-6.10); WHITE BLOOD COUNT 6.1 10^3/uL (4.0-10.0)
[2018-10-18 06:33] LABS: BLOOD UREA NITROGEN 6 MG/DL (7-18); CALCIUM LEVEL 8.2 MG/DL (8.8-10.2); CARBON DIOXIDE LEVEL 32 MEQ/L (21-32); CHLORIDE LEVEL 105 MEQ/L (98-107); GLOMERULAR FILTRATION RATE > 60.0 (>49); GLUCOSE, FASTING 90 MG/DL (70-100); POTASSIUM SERUM 3.7 MEQ/L (3.5-5.1); SODIUM LEVEL 142 MEQ/L (136-145)
[2018-10-18] MEDS ORDERED: OXYC-517 PO (08:08)
[2018-10-18] MEDS ORDERED: AZIT200S30 PEG (08:08)
[2018-10-18] MEDS ORDERED: CEFD250S26 PEG (08:08)
[2018-10-18] MEDS ORDERED: ELIQ5TAB PO (08:08)
[2018-10-18] MEDS ORDERED: oxyCODONE 5MG TAB PO ONE (08:45)
[2018-10-18 08:54] VITALS: BP 146/84
[2018-10-18] MEDS: ATORVASTATIN 20 MG TAB PEG SCH (08:54)
[2018-10-18] MEDS: LACTULOSE 20 GM/30 ML SYRUP UD PEG SCH (08:54)
[2018-10-18] MEDS: METOPROLOL TART 25 MG TABLET FT SCH (08:54)
[2018-10-18] MEDS: ESCITALOPRAM OXALATE 10 MG TAB (LEXAPRO) FT SCH (08:55)
[2018-10-18] MEDS: APIXABAN 5 MG TAB (ELIQUIS) PO SCH (08:55)
--- NOTE | 2018-10-18 11:50 | DS.PDOC ---
Discharge Summary General Date of Admission Oct 16, 2018 at 15:36 Date of Discharge 10/18/2018 Discharge Summary PROCEDURES PERFORMED DURING STAY: [None]. 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 In the emergency room, patient was suspected of having a right lower lobe pneumonia and was admitted to hospitalist service for further evaluation, treatment. . He was also reporting leaking from his PEG tube site. HOSPITAL COURSE: s/p Acute hypoxic respiratory failure - likely 2/2 community acquired pneumonia; coverage for atypical pneumonia and MRSA pneumonia - Patient has had a recent hospitalization for PE and had presented to the ER with complaints of productive cough - Reports improvement in breathing / cough; off supplemental oxygen - Physical without adventitious lung sounds - No significant leukocytosis or lactic acidosis - CXR 10/16: 1. Right lower lobe atelectasis or infiltrate. 2. Left lower lobe scarring. 3. Small right pleural effusion. - Blood cultures - negative at 24 hours; Sputum - Corynebacterium species; Wound culture - Staph Coag negative, Yeast like organisms; Respiratory panel - negative - Will discharge with Cefdinir / Azithromycin for completion of antibiotics; Will DC Ceftarolin and Azithromycin - Will have outpatient f/u with Dr. 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 ALLERGIES: Please see below. PHYSICAL EXAMINATION ON DISCHARGE: Vitals (See below) General: Lying in bed, no acute distress, comfortable, AAOx3 HEENT: NC, AT CVS: RRR, +S1S2 Lungs: Fair air entry b/l, no evidence of rhonchi / rales / wheezing Abdomen: Soft, ND, NT, +PEG (area of erythema almost nearly resolved) Extremities: No LE edema, - Calf tenderness LABORATORY DATA: Please see below. ACTIVITY: [As tolerated]. DISCHARGE PLAN: Follow up with Dr. Odette Washington within 7 days Remain compliant with treatment plan and medications Return to the ER if you experience any problems. DISPOSITION: Home, Self-Care. DISCHARGE CONDITION: [Stable]. TIME SPENT ON DISCHARGE: 40 minutes Vital Signs/I&Os Vital Signs Date Time Temp Pulse Resp B/P (MAP) Pulse Ox O2 Delivery O2 Flow Rate FiO2 10/18/18 09:23 18 10/18/18 08:54 74 146/84 10/18/18 06:00 98.3 95 10/17/18 11:05 1.5 10/16/18 17:00 Nasal Cannula 10/16/18 11:31 92 I&O- Last 24 Hours up to 6 AM 10/18/18 05:59 Intake Total 1025 ml Output Total 1425 ml Balance -400 ml Laboratory Data Labs 24H Laboratory Tests 2 10/18/18 05:22: Immature Granulocyte % (Auto) 0.3, White Blood Count 6.1, Red Blood Count 3.66L, Hemoglobin 11.3L, Hematocrit 35.4L, Mean Corpuscular Volume 96.7H, Mean Corpuscular Hemoglobin 30.9, Mean Corpuscular Hemoglobin Concent 31.9L, Red Cell Distribution Width 15.5H, Platelet Count 245, Neutrophils (%) (Auto) 70.1H, Lymphocytes (%) (Auto) 12.0L, Monocytes (%) (Auto) 12.3H, Eosinophils (%) (Auto) 4.8H, Basophils (%) (Auto) 0.5, Neutrophils # (Auto) 4.3, Lymphocytes # (Auto) 0.7L, Monocytes # (Auto) 0.8, Eosinophils # (Auto) 0.3, Basophils # (Auto) 0.0, Nucleated Red Blood Cells % (auto) 0.0, Anion Gap 5L, Glomerular Filtration Rate > 60.0, Blood Urea Nitrogen 6L, Creatinine 0.60L, Sodium Level 142, Potassium Level 3.7, Chloride Level 105, Carbon Dioxide Level 32, Calcium Level 8.2L, Magnesium Level 2.0 CBC/BMP Laboratory Tests 10/18/18 05:22 Red Blood Count 3.66 L, Mean Corpuscular Volume 96.7 H, Mean Corpuscular Hemoglobin 30.9, Mean Corpuscular Hemoglobin Concent 31.9 L, Red Cell Distribution Width 15.5 H, Neutrophils (%) (Auto) 70.1 H, Lymphocytes (%) (Auto) 12.0 L, Monocytes (%) (Auto) 12.3 H, Eosinophils (%) (Auto) 4.8 H, Basophils (%) (Auto) 0.5, Neutrophils # (Auto) 4.3, Lymphocytes # (Auto) 0.7 L, Monocytes # (Auto) 0.8, Eosinophils # (Auto) 0.3, Basophils # (Auto) 0.0, Calcium Level 8. 2 L Microbiology Microbiology 10/16/18 Blood Culture - Preliminary, Resulted No growth after 24 hours . All specim... 10/16/18 Blood Culture - Preliminary, Resulted No growth after 24 hours . All specim... 10/17/18 Respiratory Virus Panel (PCR) (TATIANA) - Final, Complete 10/16/18 Gram Stain - Final, Resulted 10/16/18 Sputum Culture - Preliminary, Resulted Corynebacterium Species 10/16/18 Wound Culture - Preliminary, Resulted Staphylococcus Sp Coag Neg Yeast Like Organism Discharge Medications Scheduled Apixaban (Eliquis) 5 Mg Tablet, 5 MG PO BID Atorvastatin Calcium (Atorvastatin Calcium) 40 Mg Tablet, 40 MG FT DAILY, (Rep orted) Azithromycin (Azithromycin) 200 Mg/5 Ml Susp.recon, 0 PEG ASDIRECTED 10 ml daily per PEG for 7 days Cefdinir (Cefdinir) 250 Mg/5 Ml Susp.recon, 5 ML PEG BID Escitalopram Oxalate (Escitalopram Oxalate) 10 Mg Tab, 10 MG FT DAILY, (Reported) Lactose-Reduced Food (Ensure Plus) 237 Ml Liquid, 3 CAN FT TID, (Reported) Lactulose (Lactulose) 10 Gm/15 Ml Solution, 30 ML PEG DAILY for constipation, (Reported) Levothyroxine Sodium (Levothyroxine Sodium) 100 Mcg Tab, 100 MCG FT DAILY, (Reported) Metoprolol Tartrate (Metoprolol Tartrate) 25 Mg Tablet, 25 MG FT BID, (Reported) Scheduled PRN Albuterol Sulf (Albuterol Sulfate) 2.5 Mg/3 Ml Vial.neb, 2.5 MG INH Q4H PRN for SHORTNESS OF BREATH, (Reported) Budesonide/Formoterol (Symbicort 160-4.5 Mcg Inhaler) 6 Gm Hfa.aer.ad, 2 PUFF INH DAILY PRN for SHORTNESS OF BREATH, (Reported) Oxycodone HCl (Oxycodone HCl) 5 Mg Tablet, 5-10 MG PO Q6HP PRN for PAIN take 1-2 tablets q6h PRN Allergies Coded Allergies: latex (Verified Allergy, Intermediate, hives, 10/07/18) CARLOS BECKER MD Oct 18, 2018 11:50
== END 2018-10-18 10:35 | disposition home or self-care (01) | DRG 193 ==
LOC: M ED 11:15 → M ED INP 15:36 → M MS5PR 17:30
PROVIDERS: ADMIT Internal Medicine; ATTEND Internal Medicine
DX: J18.9 Pneumonia, unspecified organism (principal); J96.01 Acute respiratory failure with hypoxia; A69.20 Lyme disease, unspecified; K94.29 Other complications of gastrostomy; J44.9 Chronic obstructive pulmonary disease, unspecified; F41.9 Anxiety disorder, unspecified; D64.9 Anemia, unspecified; E03.9 Hypothyroidism, unspecified; Z86.711 Personal history of pulmonary embolism; M19.90 Unspecified osteoarthritis, unspecified site; M54.2 Cervicalgia; Z85.818 Personal history of malignant neoplasm of other sites of lip, oral cavity, and pharynx; Z79.01 Long term (current) use of anticoagulants; Z79.899 Other long term (current) drug therapy; Z91.040 Latex allergy status

== ENCOUNTER 2018-10-25 07:34 | Inpatient (IN) | payer MEDICARE, MEDICAID ==
[~2018-10-25] VITALS: Ht 167.6 cm; Wt 71.8 kg
[~2018-10-25 07:34] MED LIST changes: +AZIT200S30 PEG; +CEFD250S26 PEG; +LACT10SO3 FT; +OXYC-517 PO
[2018-10-25] MEDS ORDERED: NS 500 ML IV ONE (08:15)
[2018-10-25 08:34] LABS: BASO # 0.1 10^3/uL (0.0-0.2); EOS # 0.1 10^3/uL (0.0-0.50); EOS % 1.6 % (0.0-3.0); HEMATOCRIT 38.4 % (42.0-52.0); HEMOGLOBIN 12.3 g/dl (13.5-17.5); LYMPH # 0.4 10^3/uL (1.5-4.5); LYMPH % 8.3 % (24.0-44.0); MEAN CORPUSCULAR HEMOGLOBIN 32.5 pg (27.0-33.0); MEAN CORPUSCULAR VOLUME 101.6 fl (80.0-96.0); MONO # 0.8 10^3/uL (0.0-0.8); MONO % 15.1 % (0.0-5.0); NEUTROPHILS # 3.7 10^3/uL (1.8-7.7); NEUTROPHILS % 73.8 % (36.0-66.0); PLATELET COUNT, AUTOMATED 205 10^3/uL (150-450); RED BLOOD COUNT 3.78 10^6/uL (4.30-6.10)
[2018-10-25 08:46] LABS: INR 1.01; PROTHROMBIN TIME 13.4 SECONDS (12.1-14.4)
[2018-10-25 09:02] LABS: ABG BASE EXCESS 5.1 (-2.0-2.0); ABG HCO3 32.1 MEQ/L (22.0-26.0); ABG PARTIAL PRESSURE CO2 59.1 mmHg (35.0-45.0); ABG STANDARD HCO3 29.1 MEQ/L (22.0-26.0); ABG TOTAL CO2 33.9 MEQ/L (23.0-31.0); ABG pH (ARTERIAL) 7.353 UNITS (7.350-7.450)
--- NOTE | 2018-10-25 09:09 | REP ---
CHEST, PORTABLE: AP portable view of the chest is performed and compared with prior study of 10/16/2018. There is stable right basilar atelectasis/infiltrate and a stable small right effusion. Fibroatelectatic change in the left base is stable. The heart and mediastinum are unchanged. Electronically Signed by Sunny Whitlock MD 10/25/2018 04:17 P
[2018-10-25 09:14] LABS: ALBUMIN 3.1 GM/DL (3.2-5.2); ALT/SGPT 39 U/L (12-78); BILIRUBIN,DIRECT 0.2 MG/DL (0.0-0.2); BILIRUBIN,TOTAL 0.5 MG/DL (0.2-1.0); BLOOD UREA NITROGEN 10 MG/DL (7-18); CALCIUM LEVEL 8.8 MG/DL (8.8-10.2); CARBON DIOXIDE LEVEL 37 MEQ/L (21-32); CHLORIDE LEVEL 95 MEQ/L (98-107); CK-MB VALUE MASS 1.1 NG/ML (<3.6); CPK CREATINE PHOSPHOKINASE 41 U/L (39-308); CREATININE FOR GFR 1.02 MG/DL (0.70-1.30); GLOMERULAR FILTRATION RATE > 60.0 (>49); GLUCOSE, FASTING 104 MG/DL (70-100); MB/CK RELATIVE INDEX 2.68 (< OR =4); POTASSIUM SERUM 5.1 MEQ/L (3.5-5.1); SODIUM LEVEL 134 MEQ/L (136-145); THYROXINE (T4) 10.1 UG/DL (4.5-12.0); TOTAL PROTEIN 6.1 GM/DL (6.4-8.2); TROPONIN I 0.03 NG/ML (< 0.10)
[2018-10-25] MEDS ORDERED: NS 1,000 ML IV ONE (09:30)
[2018-10-25] MEDS ORDERED: ISOVUE-370 76% 100ML VIAL (Q9967) As Ordered ONE (10:17)
--- NOTE | 2018-10-25 11:04 | REP ---
CT of the chest with IV contrast for shortness of breath/hypoxia: Comparison is 10/08/2018. On the comparison study there was a small pulmonary embolus in the pulmonary artery supplying the anterior segment right upper lobe. This embolus is no longer present. On the comparison study there was a small pulmonary embolus in the pulmonary artery supplying the medial segment of the lingula. This embolus is no longer present. There are no new pulmonary emboli. There are bilateral lower lobe infiltrates. The right lower lobe infiltrate is slightly larger. The left lower lobe infiltrate is unchanged. There are no pleural effusions. There are no masses or nodules. There is no mediastinal lymph node enlargement. There is right hilar lymph node enlargement measuring up to 16 mm. This is unchanged. Previously there was left hilar lymph node enlargement measuring up to 13 mm short axis. This measures 8 mm today and is borderline. There is no axillary lymph node enlargement. The thoracic aorta is unremarkable. The ascending aorta measures up to 3.3 centimeters in diameter. This is normal. The pulmonary trunk measures up to 3.0 cm in diameter. This is normal. There is grade 1 compression of the L1 vertebral body superior endplate, age indeterminate, unchanged. Impression: There are no pulmonary emboli. The previous pulmonary emboli have resolved. There are bilateral lower lobe infiltrates. The right lower lobe infiltrate is slightly larger. Left lower lobe infiltrate is unchanged. The bilateral hilar lymph node enlargement has decreased. The ascending thoracic aorta and pulmonary trunk are normal in diameter. Electronically Signed by Sunny Ortega MD 10/25/2018 10:55 A
[2018-10-25] MEDS ORDERED: AZIT20SS2 FT (12:19)
[2018-10-25] MEDS ORDERED: OXYC-517 FT (12:19)
[2018-10-25] MEDS ORDERED: ELIQ5TAB FT (12:19)
[2018-10-25] MEDS ORDERED: ALBUTEROL SULFATE 2.5 MG/0.5 ML INH NEB SOLN INH PRN (14:15)
[2018-10-25] MEDS ORDERED: AMPICILLIN SOD/SULBACTAM SOD 3 GM in D5W MINI-BAG PLUS 50 ML IV SCH (14:30)
--- NOTE | 2018-10-25 15:07 | HPEPDOC ---
General Date of Admission Oct 25, 2018 at 14:09 Date of Service: Oct 25, 2018 Chief Complaint The patient is a 67-year-old male admitted with a reason for visit of Aspiration Pneumonia. 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 Of note, the patient has been hospitalized here 2 other times in the last 3 weeks for complaints of the same. His first admission was for shortness of breath and the patient was found to have bilateral pulmonary embolus. The more recent admission was for shortness of breath secondary to pneumonia. On this visit, the patient states that he started to develop the aforementioned symptoms 2 days ago, and they have progressively worsened. He denies any complaints of fevers, chills, chest pain, palpitations, abdominal pain, or any nausea/vomiting/diarrhea. In the ER, the patient was noted to be hypoxic (79% on room air) and hypotensive with a systolic blood pressure in the 80s and diastolic in the 50s. A CT angiogram of the chest revealed bilateral lower lobe infiltrates with the right lower lobe infiltrate increasing in size. The patient will be admitted to the hospitalist service for recurrent aspiration pneumonia. Home Medications Scheduled Apixaban (Eliquis) 5 Mg Tablet, 5 MG FT BID, (Reported) Atorvastatin Calcium (Atorvastatin Calcium) 40 Mg Tablet, 40 MG FT DAILY, (Reported) Azithromycin (Azithromycin) 200 Mg/5 Ml Susp.recon, 10 ML FT DAILY, (Reported) FILLED 10/18/18 FOR 9 DAYS Escitalopram Oxalate (Escitalopram Oxalate) 10 Mg Tab, 10 MG FT DAILY, (Reported) Lactose-Reduced Food (Ensure Plus) 237 Ml Liquid, 3 CAN FT TID, (Reported) Lactulose (Lactulose) 10 Gm/15 Ml Solution, 30 ML FT DAILY, (Reported) Levothyroxine Sodium (Levothyroxine Sodium) 100 Mcg Tab, 100 MCG FT DAILY, (Repo rted) Metoprolol Tartrate (Metoprolol Tartrate) 25 Mg Tablet, 25 MG FT BID, (Reported) Scheduled PRN Albuterol Sulf (Albuterol Sulfate) 2.5 Mg/3 Ml Vial.neb, 2.5 MG INH Q4H PRN for SHORTNESS OF BREATH, (Reported) Oxycodone HCl (Oxycodone HCl) 5 Mg Tablet, 5 MG FT Q6H PRN for PAIN, (Reported) MAY TAKE ONE TO TWO TABS Allergies Coded Allergies: latex (Verified Allergy, Intermediate, hives, 10/07/18) Past Medical History Medical History As noted in HPI. Surgical History Cystoscopy Trans-bronchial biopsy for chronic left lower lobe infiltrate Right hand surgery 2006 G-tube replacement 2016; has been replaced. 3-4 times. Most recent which was one month ago. At [facility] Hernia repair Social History Denies the use of alcohol or illicit drugs; patient reports that he quit smoking 17 years ago but was a smoker of 35 years at less than 0.5 PPD Review of Systems Other systems 10 point review of systems negative unless otherwise specified in HPI. Physical Examination General Exam: Positive: Alert, Cooperative, No Acute Distress ENT Exam: Positive: Atraumatic; Negative: Mucous membr. moist/pink (dry mucous membranes) Chest Exam: Positive: Diminished Heart Exam: Positive: Rate Normal, Normal S1, Normal S2 Abdomen Exam: Positive: Soft, Other (+ G Tube); Negative: Tenderness Extremity Exam: Negative: Tenderness, Swelling Psych Exam: Positive: Oriented x 3 Vital Signs Vital Signs Date Time Temp Pulse Resp B/P (MAP) Pulse Ox O2 Delivery O2 Flow Rate FiO2 10/25/18 14:45 50 114/63 (80) 98 10/25/18 09:10 Nasal Cannula 2.0 10/25/18 07:35 99.0 17 Laboratory Data Labs 24H Laboratory Tests 2 10/25/18 07:56: Immature Granulocyte % (Auto) 0.2, White Blood Count 5.0, Red Blood Count 3.78L, Hemoglobin 12.3L, Hematocrit 38.4L, Mean Corpuscular Volume 101.6H, Mean Corpuscular Hemoglobin 32.5, Mean Corpuscular Hemoglobin Concent 32.0, Red Cell Distribution Width 15.2H, Platelet Count 205, Neutrophils (%) (Auto) 73.8H, Lymphocytes (%) (Auto) 8.3L, Monocytes (%) (Auto) 15.1H, Eosinophils (%) (Auto) 1.6, Basophils (%) (Auto) 1.0, Neutrophils # (Auto) 3.7, Lymphocytes # (Auto) 0.4L, Monocytes # (Auto) 0.8, Eosinophils # (Auto) 0.1, Basophils # (Auto) 0.1, Nucleated Red Blood Cells % (auto) 0.0, Prothrombin Time 13.4, Prothromb Time International Ratio 1.01, Anion Gap 2L, Glomerular Filtration Rate > 60.0, Calcium Level 8.8, Aspartate Amino Transf (AST/SGOT) 33, Alanine Aminotransferase (ALT/SGPT) 39, Alkaline Phosphatase 110, Total Bilirubin 0.5, Direct Bilirubin 0.2, Total Creatine Kinase 41, Creatine Kinase MB 1.1, Creatine Kinase MB Relative Index 2.68, Troponin I 0.03, Total Protein 6.1L, Albumin 3.1L, Albumin/Globulin Ratio 1.03, Thyroid Stimulating Hormone (TSH) 1.860, Thyroxine (T4) 10.1 10/25/18 07:57: Lactic Acid Level 1.8 10/25/18 08:37: Blood Gas Bicarbonate Standard 29.1H, Arterial Blood pH 7.353, Arterial Blood Partial Pressure CO2 59.1H, Arterial Blood Partial Pressure O2 94.0, Arterial Blood Total CO2 33.9H, Arterial Blood HCO3 32.1H, Arterial Blood Base Excess 5.1H, Arterial Blood Oxygen Saturation 97.0 CBC/BMP Laboratory Tests 10/25/18 07:56 Red Blood Count 3.78 L, Mean Corpuscular Volume 101.6 H, Mean Corpuscular Hemoglobin 32.5, Mean Corpuscular Hemoglobin Concent 32.0, Red Cell Distribution Width 15.2 H, Neutrophils (%) (Auto) 73.8 H, Lymphocytes (%) (Auto) 8.3 L, Monocytes (%) (Auto) 15.1 H, Eosinophils (%) (Auto) 1.6, Basophils (%) (Auto) 1.0, Neutrophils # (Auto) 3.7, Lymphocytes # (Auto) 0.4 L, Monocytes # (Auto) 0.8, Eosinophils # (Auto) 0.1, Basophils # (Auto) 0.1 Microbiology Microbiology 10/25/18 Blood Culture, Received Pending 10/25/18 Blood Culture, Received Pending Plan / VTE VTE Prophylaxis Ordered?: Yes Plan Plan Recurrent Aspiration Pneumonia in a patient with a G-Tube CTA Chest notable for worsening RLL infiltrate Sputum Culture ordered IV Unasyn Tube Feeding regimen changed to reflect the fact that the patient needs to remain in an upright position when feeding, and 1.5 hours thereafter. The patient endorsed that he has been using the tube feeds and laying down, which increases his risk for aspiration. Nutrition consult order for further optimization of his regimen We will continue to monitor the patient's respiratory status and down titrate supplemental oxygen as tolerated. 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
[2018-10-25] MEDS: AMPICILLIN SOD/SULBACTAM SOD 3 GM in D5W MINI-BAG PLUS 100 ML IV SCH ×2 (15:25→21:18)
[2018-10-25] MEDS: oxyCODONE 5MG TAB GT PRN (18:02)
[2018-10-25 20:00] VITALS: BP 157/77
[2018-10-25] MEDS: METOPROLOL TART 25 MG TABLET FT SCH (21:17)
[2018-10-25] MEDS: APIXABAN 5 MG TAB (ELIQUIS) FT SCH (21:17)
[2018-10-26] VITALS (7 sets, daily range): BP systolic 104–158; BP diastolic 61–86
[2018-10-26] MEDS: oxyCODONE 5MG TAB GT PRN ×4 (02:54→20:20)
[2018-10-26] MEDS: AMPICILLIN SOD/SULBACTAM SOD 3 GM in D5W MINI-BAG PLUS 100 ML IV SCH ×4 (03:40→21:54)
--- NOTE | 2018-10-26 05:41 | ECGEPIP ---
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
[2018-10-26] MEDS: LEVOTHYROXINE 100MCG TABLET (0.1MG) GT SCH (06:25)
[2018-10-26 07:36] LABS: HEMATOCRIT 38.9 % (42.0-52.0); HEMOGLOBIN 12.3 g/dl (13.5-17.5); MEAN CORPUSCULAR HGB CONC 31.6 g/dl (32.0-36.5); PLATELET COUNT, AUTOMATED 199 10^3/uL (150-450); RED BLOOD COUNT 3.97 10^6/uL (4.30-6.10); WHITE BLOOD COUNT 3.8 10^3/uL (4.0-10.0)
[2018-10-26 08:14] LABS: ALBUMIN 2.8 GM/DL (3.2-5.2); ALT/SGPT 30 U/L (12-78); BILIRUBIN,TOTAL 0.7 MG/DL (0.2-1.0); BLOOD UREA NITROGEN 7 MG/DL (7-18); CALCIUM LEVEL 8.7 MG/DL (8.8-10.2); CARBON DIOXIDE LEVEL 35 MEQ/L (21-32); CHLORIDE LEVEL 102 MEQ/L (98-107); GLOMERULAR FILTRATION RATE > 60.0 (>49); GLUCOSE, FASTING 96 MG/DL (70-100); MAGNESIUM LEVEL 2.2 MG/DL (1.8-2.4); POTASSIUM SERUM 3.7 MEQ/L (3.5-5.1); SODIUM LEVEL 139 MEQ/L (136-145); TOTAL PROTEIN 6.4 GM/DL (6.4-8.2)
[2018-10-26] MEDS: ESCITALOPRAM OXALATE 10 MG TAB (LEXAPRO) FT SCH (09:02)
[2018-10-26] MEDS: ATORVASTATIN 20 MG TAB GT SCH (09:03)
[2018-10-26] MEDS: METOPROLOL TART 25 MG TABLET FT SCH ×2 (09:03→20:20)
[2018-10-26] MEDS: APIXABAN 5 MG TAB (ELIQUIS) FT SCH ×2 (09:03→20:19)
[2018-10-26] MEDS: LACTULOSE 20 GM/30 ML SYRUP UD FT SCH (09:03)
--- NOTE | 2018-10-26 14:21 | IPNPDOC ---
Text Note Date of Service The patient was seen on 10/26/18. 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 Patient was recently admitted to the hospital for bilateral pulmonary embolisms and subsequently admitted for pneumonia. On that visit, he was discharged with oral antibiotics. Patient began to experience worsening symptoms 2 days ago. In the emergency room, patient was found to have hypoxia 79% on room air. Imaging was consistent with bilateral lower lobe infiltrates and right lower lobe infiltrate, which is increasing in size. Patient was seen and examined at the bedside. . Currently, he is seen with nasal cannula oxygen. He reports that he is still coughing. He denies chest pain or palpitations. Nursing staff is indicated that he did regurgitate large volume of contacted from his stomach. Denies any abdominal pain, constipation, diarrhea, or urinary discomfort. Objective: Vitals (See below) General: Lying in bed, no acute distress, comfortable, Awake / Alert HEENT: NC, AT CVS: RRR, +S1S2 Lungs: Poor inspiratory effort bilaterally Abdomen: Soft, ND, NT, +PEG; dressing appears to be saturated with feeding contents Extremities: - Edema, - Calf tenderness Assessment and plan: Acute hypoxic respiratory failure - likely 2/2 aspiration pneumonia, in the setting of a G-tube - In the emergency room, patient was found to be saturating at 79% on room air - In the emergency room, patient was found to have a large volume vomiting of gastric content - Physical did reveal decreased inspiratory effort bilaterally - Leukopenia, No lactic acidosis - CTA chest 10/25: There are no pulmonary emboli. The previous pulmonary emboli have resolved. There are bilateral lower lobe infiltrates. The right lower lobe infiltrate is slightly larger. Left lower lobe infiltrate is unchanged. The bilateral hilar lymph node enlargement has decreased. The ascending thoracic aorta and pulmonary trunk are normal in diameter. 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6 L, Red Cell Distribution Width 15.0 H, Calcium Level 8.7 L, Aspartate Amino Transf (AST/SGOT) 30, Alanine Aminotransferase (ALT/SGPT) 30, Alkaline Phosphatase 99, Total Bilirubin 0.7, Total Protein 6.4, Albumin 2.8 L Vital Signs Date Time Temp Pulse Resp B/P (MAP) Pulse Ox O2 Delivery O2 Flow Rate FiO2 10/26/18 12:00 99.7 70 18 104/61 (75) 94 2.0 10/26/18 08:08 Nasal Cannula I&O- Last 24 Hours up to 6 AM 10/26/18 06:00 Intake Total 1700 ml Output Total 600 ml Balance 1100 ml CARLOS BECKER MD Oct 26, 2018 14:21
[2018-10-26] MEDS ORDERED: ONDANSETRON 4MG/2ML VIAL (J2405) IV PRN (16:00)
[2018-10-26] MEDS: NS 1,000 ML IV SCH (18:45)
[2018-10-27] MEDS: oxyCODONE 5MG TAB GT PRN ×4 (02:10→20:03)
[2018-10-27] MEDS: NS 1,000 ML IV SCH ×3 (02:20→22:32)
[2018-10-27] MEDS: AMPICILLIN SOD/SULBACTAM SOD 3 GM in D5W MINI-BAG PLUS 100 ML IV SCH ×4 (03:43→20:03)
[2018-10-27 04:00] VITALS: BP 145/75
[2018-10-27] MEDS: LEVOTHYROXINE 100MCG TABLET (0.1MG) GT SCH (06:06)
[2018-10-27 06:14] LABS: HEMATOCRIT 37.5 % (42.0-52.0); HEMOGLOBIN 12.2 g/dl (13.5-17.5); MEAN CORPUSCULAR HEMOGLOBIN 31.4 pg (27.0-33.0); MEAN CORPUSCULAR HGB CONC 32.5 g/dl (32.0-36.5); MEAN CORPUSCULAR VOLUME 96.6 fl (80.0-96.0); PLATELET COUNT, AUTOMATED 199 10^3/uL (150-450); RED BLOOD COUNT 3.88 10^6/uL (4.30-6.10); WHITE BLOOD COUNT 10.9 10^3/uL (4.0-10.0)
[2018-10-27 06:36] LABS: BLOOD UREA NITROGEN 11 MG/DL (7-18); CALCIUM LEVEL 8.9 MG/DL (8.8-10.2); CARBON DIOXIDE LEVEL 34 MEQ/L (21-32); CHLORIDE LEVEL 101 MEQ/L (98-107); CREATININE FOR GFR 0.76 MG/DL (0.70-1.30); GLOMERULAR FILTRATION RATE > 60.0 (>49); GLUCOSE, FASTING 138 MG/DL (70-100); POTASSIUM SERUM 3.5 MEQ/L (3.5-5.1); SODIUM LEVEL 137 MEQ/L (136-145)
[2018-10-27 08:00] VITALS: BP 163/69
[2018-10-27] MEDS ORDERED: oxyCODONE 5MG TAB PO PRN (08:00)
[2018-10-27] MEDS ORDERED: oxyCODONE 5MG TAB GT PRN (08:05)
[2018-10-27] MEDS: METOPROLOL TART 25 MG TABLET FT SCH ×2 (08:18→20:02)
[2018-10-27] MEDS: ESCITALOPRAM OXALATE 10 MG TAB (LEXAPRO) FT SCH (08:18)
[2018-10-27] MEDS: APIXABAN 5 MG TAB (ELIQUIS) FT SCH ×2 (08:18→20:01)
[2018-10-27] MEDS: ATORVASTATIN 20 MG TAB GT SCH (08:18)
[2018-10-27] MEDS: LACTULOSE 20 GM/30 ML SYRUP UD FT SCH (08:19)
--- NOTE | 2018-10-27 11:27 | IPNPDOC ---
Text Note Date of Service The patient was seen on 10/27/18. 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 Patient was recently admitted to the hospital for bilateral pulmonary embolisms and subsequently admitted for pneumonia. On that visit, he was discharged with oral antibiotics. Patient began to experience worsening symptoms 2 days ago. In the emergency room, patient was found to have hypoxia 79% on room air. Imaging was consistent with bilateral lower lobe infiltrates and right lower lobe infiltrate, which is increasing in size. Patient was seen and examined at the bedside. Patient reports that he's feeling better, still is making productive sputum. Patient be working with physical therapy today. . He is reported that his dizziness and lightheadedness have resolved. Denies any nausea, vomiting, abdominal pain. The patient, diarrhea, or urinary discomfort. Objective: Vitals (See below) General: Lying in bed, no acute distress, comfortable, Awake / Alert HEENT: NC, AT CVS: RRR, +S1S2 Lungs: Poor inspiratory effort bilaterally Abdomen: Soft, ND, NT, +PEG Extremities: - Edema, - Calf tenderness Assessment and plan: Acute hypoxic respiratory failure - likely 2/2 aspiration pneumonia, in the setting of a G-tube - In the emergency room, patient was found to be saturating at 79% on room air - In the emergency room, patient was found to have a large volume vomiting of gastric content - Physical did reveal decreased inspiratory effort bilaterally - Leukocytosis noted, No lactic acidosis - CTA chest 10/25: There are no pulmonary emboli. The previous pulmonary emboli have resolved. There are bilateral lower lobe infiltrates. The right lower lobe infiltrate is slightly larger. Left lower lobe infiltrate is unchanged. The bilateral hilar lymph node enlargement has decreased. The ascending thoracic aorta and pulmonary trunk are normal in diameter. - c/w Supplemental oxygen; will taper down as tolerated - c/w Unasyn (day #3) Dysphagia s/p G tube placement - Given the recent finding of recurrent aspiration, we'll decrease the amount of tube feedings and total bolus content - Advised that he should only have feedings when sitting up - Feedings were held yesterday because of nausea and vomiting; this has resolved - Will consider restarting tube feedings by this afternoon Tonsillar CA - Dx 2010 - s/p Chemo and radiation DLP - c/w Atorvastatin COPD - No evidence of exacerbation - c/w Inhaled therapy as ordered Recent PE - c/w full anticoagulation with Eliquis 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5, Red Cell Distribution Width 15.3 H, Calcium Level 8.9 Vital Signs Date Time Temp Pulse Resp B/P (MAP) Pulse Ox O2 Delivery O2 Flow Rate FiO2 10/27/18 08:49 16 10/27/18 08:18 71 145/75 10/27/18 08:00 6.0 10/27/18 08:00 98.4 96 10/26/18 08:08 Nasal Cannula I&O- Last 24 Hours up to 6 AM 10/27/18 06:00 Intake Total 870 ml Balance 870 ml CARLOS BECKER MD Oct 27, 2018 11:27
[2018-10-27 12:00] VITALS: BP 142/76
[2018-10-27 16:00] VITALS: BP 121/63
[2018-10-27 20:00] VITALS: BP 148/81
[2018-10-27 23:59] VITALS: BP 114/61
[2018-10-28] MEDS: AMPICILLIN SOD/SULBACTAM SOD 3 GM in D5W MINI-BAG PLUS 100 ML IV SCH ×4 (02:07→20:11)
[2018-10-28] MEDS: oxyCODONE 5MG TAB GT PRN ×4 (02:09→20:13)
[2018-10-28 04:00] VITALS: BP 135/79
[2018-10-28 04:50] LABS: HEMATOCRIT 34.2 % (42.0-52.0); HEMOGLOBIN 11.1 g/dl (13.5-17.5); MEAN CORPUSCULAR HEMOGLOBIN 32.4 pg (27.0-33.0); MEAN CORPUSCULAR HGB CONC 32.5 g/dl (32.0-36.5); MEAN CORPUSCULAR VOLUME 99.7 fl (80.0-96.0); PLATELET COUNT, AUTOMATED 168 10^3/uL (150-450); RED BLOOD COUNT 3.43 10^6/uL (4.30-6.10); WHITE BLOOD COUNT 8.1 10^3/uL (4.0-10.0)
[2018-10-28 05:05] LABS: BLOOD UREA NITROGEN 11 MG/DL (7-18); CARBON DIOXIDE LEVEL 29 MEQ/L (21-32); CHLORIDE LEVEL 105 MEQ/L (98-107); CREATININE FOR GFR 0.66 MG/DL (0.70-1.30); GLOMERULAR FILTRATION RATE > 60.0 (>49); GLUCOSE, FASTING 106 MG/DL (70-100); POTASSIUM SERUM 3.3 MEQ/L (3.5-5.1); SODIUM LEVEL 140 MEQ/L (136-145)
[2018-10-28] MEDS: LEVOTHYROXINE 100MCG TABLET (0.1MG) GT SCH (05:37)
[2018-10-28] MEDS ORDERED: POTASSIUM CHLORIDE 10% LIQ 20 MEQ/15 ML UDC PEG ONE (07:15)
[2018-10-28 08:00] VITALS: BP 157/80
[2018-10-28] MEDS ORDERED: SLF 3 ML SYR IV PRN (08:45)
[2018-10-28] MEDS: ATORVASTATIN 20 MG TAB GT SCH (08:56)
[2018-10-28] MEDS: METOPROLOL TART 25 MG TABLET FT SCH ×2 (08:57→20:13)
[2018-10-28] MEDS: LACTULOSE 20 GM/30 ML SYRUP UD FT SCH (09:00)
[2018-10-28] MEDS: APIXABAN 5 MG TAB (ELIQUIS) FT SCH ×2 (09:00→20:13)
[2018-10-28] MEDS: ESCITALOPRAM OXALATE 10 MG TAB (LEXAPRO) FT SCH (09:04)
[2018-10-28] MEDS: guaiFENesin 200 MG TAB PO SCH ×4 (11:00→20:12)
--- NOTE | 2018-10-28 11:31 | IPNPDOC ---
Text Note Date of Service The patient was seen on 10/28/18. 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 Patient was recently admitted to the hospital for bilateral pulmonary embolisms and subsequently admitted for pneumonia. On that visit, he was discharged with oral antibiotics. Patient began to experience worsening symptoms 2 days ago. In the emergency room, patient was found to have hypoxia 79% on room air. Imaging was consistent with bilateral lower lobe infiltrates and right lower lobe infiltrate, which is increasing in size. Patient was seen and examined at the bedside. Patient reports that his breathing is doing little bit better. Still reports a productive cough. Denies nausea, vomiting. Will be restarting tube feeding today. Denies any constipation or diarrhea. Denies any urinary discomfort. Objective: Vitals (See below) General: Lying in bed, no acute distress, comfortable, Awake / Alert HEENT: NC, AT CVS: RRR, +S1S2 Lungs: Poor inspiratory effort bilaterally. There is evidence of rhonchi at bilateral lung chaidez Abdomen: Soft, ND, NT, +PEG Extremities: No evidence of extremity edema, - Calf tenderness Assessment and plan: Acute hypoxic respiratory failure - likely 2/2 aspiration pneumonia, in the setting of a G-tube - In the ER, patient was found to be saturating at 79% on room air and had also had a large volume vomitus of gastric content - Physical with rhonchi bilaterally - Leukocytosis improved, No lactic acidosis - CTA chest 10/25: There are no pulmonary emboli. The previous pulmonary emboli have resolved. There are bilateral lower lobe infiltrates. The right lower lobe infiltrate is slightly larger. Left lower lobe infiltrate is unchanged. The bilateral hilar lymph node enlargement has decreased. The ascending thoracic aorta and pulmonary trunk are normal in diameter. 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 - Has had trans-bronchial biopsy completed in the past Hypothyroidism - c/w Levothyroxine Anemia - Hg appears to be at baseline - Will continue to follow Anxiety - c/w Escitalopram Lyme disease - No active history Osteoarthritis / Chronic neck pain - c/w oxycodone based on home regimen DVT prophylaxis - c/w full anticoagulation with Eliquis Disposition: - Will need to titrate off supplemental oxygen VS,Fishbone, I+O VS, Fishbone, I+O Laboratory Tests 10/28/18 04:26 Red Blood Count 3.43 L, Mean Corpuscular Volume 99.7 H, Mean Corpuscular Hemo globin 32.4, Mean Corpuscular Hemoglobin Concent 32.5, Red Cell Distribution Width 15.5 H, Calcium Level 8.0 L Vital Signs Date Time Temp Pulse Resp B/P (MAP) Pulse Ox O2 Delivery O2 Flow Rate FiO2 10/28/18 09:30 20 10/28/18 08:57 72 157/60 10/28/18 08:00 98.7 97 6.0 10/26/18 08:08 Nasal Cannula I&O- Last 24 Hours up to 6 AM 10/28/18 06:00 Intake Total 2500 ml Output Total 825 ml Balance 1675 ml CARLOS BECKER MD Oct 28, 2018 11:31
[2018-10-28 12:00] VITALS: BP 109/61
[2018-10-28] MEDS: SLF 3 ML SYR IV SCH ×2 (14:22→21:10)
[2018-10-28 16:00] VITALS: BP 141/72
[2018-10-28 19:38] VITALS: BP 153/73
[2018-10-28 23:59] VITALS: BP 147/76
[2018-10-29] MEDS: AMPICILLIN SOD/SULBACTAM SOD 3 GM in D5W MINI-BAG PLUS 100 ML IV SCH ×4 (02:08→20:52)
[2018-10-29] MEDS: guaiFENesin 200 MG TAB PO SCH ×6 (02:09→20:52)
[2018-10-29] MEDS: oxyCODONE 5MG TAB GT PRN ×4 (02:16→20:53)
[2018-10-29 04:56] VITALS: BP 146/77
[2018-10-29] MEDS: LEVOTHYROXINE 100MCG TABLET (0.1MG) GT SCH (05:04)
[2018-10-29] MEDS: SLF 3 ML SYR IV SCH ×3 (05:04→21:14)
[2018-10-29 05:15] LABS: HEMATOCRIT 36.2 % (42.0-52.0); HEMOGLOBIN 11.7 g/dl (13.5-17.5); MEAN CORPUSCULAR HEMOGLOBIN 31.9 pg (27.0-33.0); MEAN CORPUSCULAR HGB CONC 32.3 g/dl (32.0-36.5); MEAN CORPUSCULAR VOLUME 98.6 fl (80.0-96.0); PLATELET COUNT, AUTOMATED 171 10^3/uL (150-450); RED BLOOD COUNT 3.67 10^6/uL (4.30-6.10); WHITE BLOOD COUNT 7.1 10^3/uL (4.0-10.0)
[2018-10-29 05:35] LABS: BLOOD UREA NITROGEN 8 MG/DL (7-18); CALCIUM LEVEL 8.5 MG/DL (8.8-10.2); CARBON DIOXIDE LEVEL 34 MEQ/L (21-32); CHLORIDE LEVEL 103 MEQ/L (98-107); GLOMERULAR FILTRATION RATE > 60.0 (>49); GLUCOSE, FASTING 91 MG/DL (70-100); POTASSIUM SERUM 3.4 MEQ/L (3.5-5.1); SODIUM LEVEL 140 MEQ/L (136-145)
[2018-10-29] MEDS ORDERED: POTASSIUM CHLORIDE 10% LIQ 20 MEQ/15 ML UDC GT ONE (07:15)
[2018-10-29 07:43] VITALS: BP 158/86
[2018-10-29] MEDS: ATORVASTATIN 20 MG TAB GT SCH (08:27)
[2018-10-29] MEDS: LACTULOSE 20 GM/30 ML SYRUP UD FT SCH (08:27)
[2018-10-29] MEDS: METOPROLOL TART 25 MG TABLET FT SCH ×2 (08:27→20:52)
[2018-10-29] MEDS: ESCITALOPRAM OXALATE 10 MG TAB (LEXAPRO) FT SCH (08:28)
[2018-10-29] MEDS: APIXABAN 5 MG TAB (ELIQUIS) FT SCH ×2 (08:28→20:51)
--- NOTE | 2018-10-29 09:56 | IPNPDOC ---
Text Note Date of Service The patient was seen on 10/29/18. 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 Patient was recently admitted to the hospital for bilateral pulmonary embolisms and subsequently admitted for pneumonia. On that visit, he was discharged with oral antibiotics. Patient began to experience worsening symptoms 2 days ago. In the emergency room, patient was found to have hypoxia 79% on room air. Imaging was consistent with bilateral lower lobe infiltrates and right lower lobe infiltrate, which is increasing in size. Patient was seen and examined at the bedside. Patient reports that his breathing is doing better. He denies any significant coughing. This chest pain or palpitations. Has not experienced any abdominal distention or regurgitation. Reports that he's been having regular bowel movements. Denies any urinary discomfort. Objective: Vitals (See below) General: Lying in bed, no acute distress, comfortable, Awake / Alert HEENT: NC, AT CVS: RRR, +S1S2 Lungs: There are some rhonchi bilaterally Abdomen: Soft, remains nondistended and nontender. PEG tube is in place without any significant erythema around the site Extremities: Lower extremities are free of any edema, - Calf tenderness Assessment and plan: Acute hypoxic respiratory failure - likely 2/2 aspiration pneumonia, in the setting of a G-tube - In the ER, patient was found to be saturating at 79% on room air and had also had a large volume vomitus of gastric content - Oxygen saturations have improved and supplemental oxygen requirement has gone down - Leukocytosis improved, No lactic acidosis - CTA chest 10/25: There are no pulmonary emboli. The previous pulmonary emboli have resolved. There are bilateral lower lobe infiltrates. The right lower lobe infiltrate is slightly larger. Left lower lobe infiltrate is unchanged. The bilateral hilar lymph node enlargement has decreased. The ascending thoracic aorta and pulmonary trunk are normal in diameter. 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 - Has had trans-bronchial biopsy completed in the past Hypothyroidism - c/w Levothyroxine Anemia - Hg appears to be at baseline - Will continue to follow Anxiety - c/w Escitalopram Lyme disease - No active history Osteoarthritis / Chronic neck pain - c/w oxycodone based on home regimen DVT prophylaxis - c/w full anticoagulation with Eliquis Disposition: - Patient's clinical status continues to improve - Will continue to taper down supplemental oxygen VS,Fishbone, I+O VS, Fishbone, I+O Laboratory Tests 10/29/18 04:39 Red Blood Count 3.67 L, Mean Corpuscular Volume 98.6 H, Mean Corpuscular Hemoglobin 31.9, Mean Corpuscular Hemoglobin Concent 32.3, Red Cell Distribution Width 14.9 H, Calcium Level 8.5 L Vital Signs Date Time Temp Pulse Resp B/P (MAP) Pulse Ox O2 Delivery O2 Flow Rate FiO2 10/29/18 08:58 18 10/29/18 08:27 68 158/86 10/29/18 07:57 4.0 10/29/18 07:43 97.4 92 10/26/18 08:08 Nasal Cannula I&O- Last 24 Hours up to 6 AM 10/29/18 05:59 Intake Total 1060 ml Output Total 1175 ml Balance -115 ml CARLOS BECKER MD Oct 29, 2018 09:56
[2018-10-29 14:50] VITALS: BP 158/77
[2018-10-29] MEDS: NYSTATIN CREAM 15 GM TOP SCH (20:52)
[2018-10-29 22:00] VITALS: BP 149/78
[2018-10-30] MEDS: guaiFENesin 200 MG TAB PO SCH ×6 (00:08→20:43)
[2018-10-30] MEDS: AMPICILLIN SOD/SULBACTAM SOD 3 GM in D5W MINI-BAG PLUS 100 ML IV SCH ×4 (03:48→21:36)
[2018-10-30] MEDS: LEVOTHYROXINE 100MCG TABLET (0.1MG) GT SCH (05:34)
[2018-10-30] MEDS: SLF 3 ML SYR IV SCH ×3 (05:35→20:43)
[2018-10-30] MEDS: oxyCODONE 5MG TAB GT PRN ×3 (05:36→17:52)
[2018-10-30 06:00] VITALS: BP 157/85
[2018-10-30 06:22] LABS: HEMATOCRIT 36.8 % (42.0-52.0); MEAN CORPUSCULAR HEMOGLOBIN 30.8 pg (27.0-33.0); MEAN CORPUSCULAR HGB CONC 32.6 g/dl (32.0-36.5); MEAN CORPUSCULAR VOLUME 94.6 fl (80.0-96.0); PLATELET COUNT, AUTOMATED 176 10^3/uL (150-450); RED BLOOD COUNT 3.89 10^6/uL (4.30-6.10); WHITE BLOOD COUNT 5.5 10^3/uL (4.0-10.0)
[2018-10-30 06:49] LABS: BLOOD UREA NITROGEN 9 MG/DL (7-18); CALCIUM LEVEL 8.6 MG/DL (8.8-10.2); CARBON DIOXIDE LEVEL 34 MEQ/L (21-32); CHLORIDE LEVEL 99 MEQ/L (98-107); CREATININE FOR GFR 0.63 MG/DL (0.70-1.30); GLOMERULAR FILTRATION RATE > 60.0 (>49); GLUCOSE, FASTING 98 MG/DL (70-100); POTASSIUM SERUM 3.4 MEQ/L (3.5-5.1); SODIUM LEVEL 137 MEQ/L (136-145)
[2018-10-30] MEDS ORDERED: POTASSIUM CHLORIDE 10% LIQ 20 MEQ/15 ML UDC GT ONE ×2 (08:00→11:00)
[2018-10-30] MEDS: ESCITALOPRAM OXALATE 10 MG TAB (LEXAPRO) FT SCH (08:45)
[2018-10-30] MEDS: NYSTATIN CREAM 15 GM TOP SCH ×2 (08:46→20:44)
[2018-10-30] MEDS: LACTULOSE 20 GM/30 ML SYRUP UD FT SCH (08:46)
[2018-10-30] MEDS: APIXABAN 5 MG TAB (ELIQUIS) FT SCH ×2 (08:46→20:43)
[2018-10-30] MEDS: METOPROLOL TART 25 MG TABLET FT SCH ×2 (08:46→20:43)
[2018-10-30] MEDS: ATORVASTATIN 20 MG TAB GT SCH (08:51)
--- NOTE | 2018-10-30 10:39 | IPNPDOC ---
Text Note Date of Service The patient was seen on 10/30/18. 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 Patient was recently admitted to the hospital for bilateral pulmonary embolisms and subsequently admitted for pneumonia. On that visit, he was discharged with oral antibiotics. Patient began to experience worsening symptoms 2 days ago. In the emergency room, patient was found to have hypoxia 79% on room air. Imaging was consistent with bilateral lower lobe infiltrates and right lower lobe infiltrate, which is increasing in size. Patient was seen and examined at the bedside. Patient has noted that he does not experience any regurgitation or abdominal distention. Reports that he still is coughing reports improvement in his breathing. Denies any chest pain or palpitations. Denies any difficulty with bowel movements or urination. Objective: Vitals (See below) General: Lying in bed, no acute distress, comfortable, Awake / Alert HEENT: NC, AT CVS: RRR, +S1S2 Lungs: Improved aeration bilaterally Abdomen: Soft, NT, ND, PEG tube with mild erythema Extremities: Lower extremities are without edema, - Calf tenderness Assessment and plan: Acute hypoxic respiratory failure - likely 2/2 aspiration pneumonia, in the setting of a G-tube - In the ER, patient was found to be saturating at 79% on room air and had also had a large volume vomitus of gastric content - Will continue to titrate down on supplemental oxygen - s/p Leukocytosis No lactic acidosis - CTA chest 10/25: There are no pulmonary emboli. The previous pulmonary emboli have resolved. There are bilateral lower lobe infiltrates. The right lower lobe infiltrate is slightly larger. Left lower lobe infiltrate is unchanged. The bilateral hilar lymph node enlargement has decreased. The ascending thoracic aorta and pulmonary trunk are normal in diameter. 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 - Has had trans-bronchial biopsy completed in the past Hypothyroidism - c/w Levothyroxine Anemia - Hg appears to be at baseline and has remained stable - Will continue to follow Anxiety - c/w Escitalopram Lyme disease - No active history Osteoarthritis / Chronic neck pain - c/w oxycodone based on home regimen; will c/w 5-10mg q6h DVT prophylaxis - c/w full anticoagulation with Eliquis Disposition: - Patient's clinical status continues to improve - Will continue to taper down supplemental oxygen - Anticipated DC within 24-48 hours when off oxygen VS,Fishbone, I+O VS, Fishbone, I+O Laboratory Tests 10/30/18 06:07 Red Blood Count 3.89 L, Mean Corpuscular Volume 94.6, Mean Corpuscular Hemoglobin 30.8, Mean Corpuscular Hemoglobin Concent 32.6, Red Cell Distribution Width 14.4, Calcium Level 8.6 L Vital Signs Date Time Temp Pulse Resp B/P (MAP) Pulse Ox O2 Delivery O2 Flow Rate FiO2 10/30/18 08:46 61 121/71 10/30/18 06:06 18 4.0 10/30/18 06:00 97.2 93 10/26/18 08:08 Nasal Cannula I&O- Last 24 Hours up to 6 AM 10/30/18 06:00 Intake Total 2570 ml Output Total 200 ml Balance 2370 ml CARLOS BECKER MD Oct 30, 2018 10:39
[2018-10-30 14:00] VITALS: BP 140/79
[2018-10-30 22:00] VITALS: BP 135/78
[2018-10-31] MEDS: guaiFENesin 200 MG TAB PO SCH ×3 (00:02→08:47)
[2018-10-31] MEDS: oxyCODONE 5MG TAB GT PRN ×2 (00:03→06:13)
[2018-10-31] MEDS: AMPICILLIN SOD/SULBACTAM SOD 3 GM in D5W MINI-BAG PLUS 100 ML IV SCH ×2 (04:01→08:48)
[2018-10-31] MEDS: SLF 3 ML SYR IV SCH (05:38)
[2018-10-31] MEDS: LEVOTHYROXINE 100MCG TABLET (0.1MG) GT SCH (05:38)
[2018-10-31 06:00] VITALS: BP 144/87
[2018-10-31 06:49] LABS: HEMATOCRIT 37.7 % (42.0-52.0); HEMOGLOBIN 12.3 g/dl (13.5-17.5); MEAN CORPUSCULAR HEMOGLOBIN 30.7 pg (27.0-33.0); MEAN CORPUSCULAR HGB CONC 32.6 g/dl (32.0-36.5); PLATELET COUNT, AUTOMATED 191 10^3/uL (150-450); RED BLOOD COUNT 4.01 10^6/uL (4.30-6.10); WHITE BLOOD COUNT 5.3 10^3/uL (4.0-10.0)
[2018-10-31 07:08] LABS: BLOOD UREA NITROGEN 12 MG/DL (7-18); CALCIUM LEVEL 8.5 MG/DL (8.8-10.2); CARBON DIOXIDE LEVEL 31 MEQ/L (21-32); CHLORIDE LEVEL 97 MEQ/L (98-107); CREATININE FOR GFR 0.59 MG/DL (0.70-1.30); GLOMERULAR FILTRATION RATE > 60.0 (>49); GLUCOSE, FASTING 102 MG/DL (70-100); SODIUM LEVEL 133 MEQ/L (136-145)
[2018-10-31] MEDS: LACTULOSE 20 GM/30 ML SYRUP UD FT SCH (08:47)
[2018-10-31] MEDS: APIXABAN 5 MG TAB (ELIQUIS) FT SCH (08:47)
[2018-10-31] MEDS: ESCITALOPRAM OXALATE 10 MG TAB (LEXAPRO) FT SCH (08:47)
[2018-10-31 08:48] VITALS: BP 124/72
[2018-10-31] MEDS: NYSTATIN CREAM 15 GM TOP SCH (08:48)
[2018-10-31] MEDS: METOPROLOL TART 25 MG TABLET FT SCH (08:48)
[2018-10-31] MEDS: ATORVASTATIN 20 MG TAB GT SCH (08:48)
[2018-10-31] MEDS ORDERED: GUAI20TA PO (09:11)
[2018-10-31] MEDS ORDERED: OXYCO5TA GT ×2 (09:11→09:14)
[2018-10-31] MEDS ORDERED: OXYC-517 FT (10:52)
--- NOTE | 2018-10-31 11:14 | DS.PDOC ---
Discharge Summary General Date of Admission Oct 25, 2018 at 14:09 Date of Discharge 10/31/2018 Discharge Summary PROCEDURES PERFORMED DURING STAY: [None]. 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 Patient was recently admitted to the hospital for bilateral pulmonary embolisms and subsequently admitted for pneumonia. On that visit, he was discharged with oral antibiotics. Patient began to experience worsening symptoms 2 days ago. In the emergency room, patient was found to have hypoxia 79% on room air. Imaging was consistent with bilateral lower lobe infiltrates and right lower lobe infiltrate, which is increasing in size. HOSPITAL COURSE: Acute hypoxic respiratory failure - likely 2/2 aspiration pneumonia, in the setting of a G-tube - In the ER, patient was found to be saturating at 79% on room air and had also had a large volume vomitus of gastric content - Has been taking completely off supplemental oxygen - s/p Leukocytosis No lactic acidosis - CTA chest 10/25: There are no pulmonary emboli. The previous pulmonary emboli have resolved. There are bilateral lower lobe infiltrates. The right lower lobe infiltrate is slightly larger. Left lower lobe infiltrate is unchanged. The bilateral hilar lymph node enlargement has decreased. The ascending thoracic aorta and pulmonary trunk are normal in diameter. - Has completed antibiotic course with Unasyn for 7 days - Advised patient to follow-up with Dr. Leonard within 7 days; advised to follow dietary recommendations Dysphagia s/p G tube placement - Currently, patient does not experience any abdominal distention or regu rgitation - Advised that he should only have feedings when sitting up - PEG tube site does not appear infected; small amount of granulation tissue noted; no further intervention required at this time - c/w tube feedings based on dietary recommendations Tonsillar CA - Dx 2010 - s/p Chemo and radiation DLP - c/w Atorvastatin COPD - No evidence of exacerbation - c/w Inhaled therapy as ordered Recent PE - c/w full anticoagulation with Eliquis 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 ALLERGIES: Please see below. PHYSICAL EXAMINATION ON DISCHARGE: Vitals (See below) General: Lying in bed, no acute distress, comfortable, Awake / Alert HEENT: NC, AT CVS: RRR, +S1S2 Lungs: Improved aeration, no wheezing / crackles appreciated Abdomen: Soft, NT, ND, PEG tube with granulation tissue around site - very mild streaks of blood on dressing changes Extremities: No edema noted, - Calf tenderness LABORATORY DATA: Please see below. ACTIVITY: [As tolerated]. DIET: - Advised to have Ensure plus 5 times daily with free water intake - Hold if he feels distended / full / bloated / experiences any N/V - Remain upright for duration of feed and up to 1 hour after feeds DISCHARGE PLAN: - Follow up with Dr. Washington within 7 days - Remain compliant with treatment plan and medications - Return to the ER if you experience any problems DISPOSITION: Home DISCHARGE CONDITION: [Stable]. TIME SPENT ON DISCHARGE: 42 minutes Vital Signs/I&Os Vital Signs Date Time Temp Pulse Resp B/P (MAP) Pulse Ox O2 Delivery O2 Flow Rate FiO2 10/31/18 08:48 74 124/72 10/31/18 06:43 20 10/31/18 06:00 97.7 94 10/30/18 14:00 1.0 10/26/18 08:08 Nasal Cannula I&O- Last 24 Hours up to 6 AM 10/31/18 06:00 Intake Total 2000 ml Output Total 0 ml Balance 2000 ml Laboratory Data Labs 24H Laboratory Tests 2 10/31/18 06:25: Nucleated Red Blood Cells % (auto) 0.0, Anion Gap 5L, Glomerular Filtration Rate > 60.0, Blood Urea Nitrogen 12, Creatinine 0.59L, Sodium Level 133L, Potassium Level 4.0, Chloride Level 97L, Carbon Dioxide Level 31, Calcium Level 8.5L CBC/BMP Laboratory Tests 10/31/18 06:25 Red Blood Count 4.01 L, Mean Corpuscular Volume 94.0, Mean Corpuscular Hemoglobin 30.7, Mean Corpuscular Hemoglobin Concent 32.6, Red Cell Distribution Width 14.2, Calcium Level 8.5 L Microbiology Microbiology 10/25/18 Blood Culture - Final, Complete NO GROWTH AFTER 5 DAYS 10/25/18 Blood Culture - Final, Complete NO GROWTH AFTER 5 DAYS 10/28/18 Gram Stain - Final, Complete 10/28/18 Sputum Culture - Final, Complete Yeast Like Organism Discharge Medications Scheduled Apixaban (Eliquis) 5 Mg Tablet, 5 MG FT BID, (Reported) Atorvastatin Calcium (Atorvastatin Calcium) 40 Mg Tablet, 40 MG FT DAILY, (Reported) Escitalopram Oxalate (Escitalopram Oxalate) 10 Mg Tab, 10 MG FT DAILY, (Reported) Guaifenesin (Guaifenesin) 200 Mg Tablet, 200 MG PO Q4H Lactose-Reduced Food (Ensure Plus) 237 Ml Liquid, 3 CAN FT TID, (Reported) Lactulose (Lactulose) 10 Gm/15 Ml Solution, 30 ML FT DAILY, (Reported) Levothyroxine Sodium (Levothyroxine Sodium) 100 Mcg Tab, 100 MCG FT DAILY, (Reported) Metoprolol Tartrate (Metoprolol Tartrate) 25 Mg Tablet, 25 MG FT BID, (Reported) Scheduled PRN Albuterol Sulf (Albuterol Sulfate) 2.5 Mg/3 Ml Vial.neb, 2.5 MG INH Q4H PRN for SHORTNESS OF BREATH, (Reported) Oxycodone HCl (Oxycodone HCl) 5 Mg Tablet, 5 MG FT Q6H PRN for PAIN MAY TAKE ONE TO TWO TABS Allergies Coded Allergies: latex (Verified Allergy, Intermediate, hives, 10/07/18) CARLOS BECKER MD Oct 31, 2018 11:14
== END 2018-10-31 11:36 | disposition home or self-care (01) | DRG 177 ==
LOC: M ED 07:34 → M ED INP 14:09 → M PCU 10-26 16:25 → M MSPAV 10-29 14:50
PROVIDERS: ADMIT Internal Medicine; ATTEND Internal Medicine
DX: J69.0 Pneumonitis due to inhalation of food and vomit (principal); J96.01 Acute respiratory failure with hypoxia; A69.20 Lyme disease, unspecified; J44.9 Chronic obstructive pulmonary disease, unspecified; K22.2 Esophageal obstruction; Z93.1 Gastrostomy status; M19.90 Unspecified osteoarthritis, unspecified site; M54.2 Cervicalgia; F41.9 Anxiety disorder, unspecified; D64.9 Anemia, unspecified; R13.10 Dysphagia, unspecified; Z85.818 Personal history of malignant neoplasm of other sites of lip, oral cavity, and pharynx; Z79.01 Long term (current) use of anticoagulants; Z86.711 Personal history of pulmonary embolism; E03.9 Hypothyroidism, unspecified; Z79.899 Other long term (current) drug therapy; Z91.040 Latex allergy status

== ENCOUNTER 2018-11-02 12:21 | Inpatient (IN) | payer MEDICARE, MEDICAID ==
[~2018-11-02] VITALS: Ht 167.6 cm; Wt 69.8 kg
[~2018-11-02 12:21] MED LIST changes: +AZIT20SS2 FT; +ELIQ5TAB FT; +GUAI20TA PO; +OXYC-517 FT; +OXYCO5TA GT
[2018-11-02] MEDS ORDERED: NS 500 ML IV ONE (13:00)
[2018-11-02 13:05] LABS: VENOUS BASE EXCESS 2.6 (-2.0-2.0); VENOUS HCO3 30.8 MEQ/L (23.0-27.0); VENOUS O2 SATURATION 59.5 % (60.0-80.0); VENOUS PARTIAL PRESSURE CO2 65.8 mmHg (38.0-50.0); VENOUS PARTIAL PRESSURE O2 35.4 mmHg (30.0-50.0); VENOUS PH 7.288 UNITS (7.330-7.430); VENOUS STANDARD HCO3 25.9 MEQ/L; VENOUS TOTAL CO2 32.8 MEQ/L (24.0-28.0)
[2018-11-02 13:08] LABS: BASO % 0.6 % (0.0-1.0); LYMPH # 0.4 10^3/uL (1.5-4.5); LYMPH % 6.5 % (24.0-44.0); MEAN CORPUSCULAR HEMOGLOBIN 32.4 pg (27.0-33.0); MEAN CORPUSCULAR HGB CONC 32.4 g/dl (32.0-36.5); MONO # 0.9 10^3/uL (0.0-0.8); MONO % 16.1 % (0.0-5.0); NEUTROPHILS # 4.1 10^3/uL (1.8-7.7); NEUTROPHILS % 75.9 % (36.0-66.0); PLATELET COUNT, AUTOMATED 204 10^3/uL (150-450); WHITE BLOOD COUNT 5.4 10^3/uL (4.0-10.0)
[2018-11-02 13:20] LABS: INR 1.14; PROTHROMBIN TIME 14.3 SECONDS (11.8-14.0)
--- NOTE | 2018-11-02 13:24 | REP ---
Clinical: Cough and dyspnea. Technique: Portable semiupright view of the chest. Comparison: 10/25/2018. Findings: Bibasilar consolidations and small right pleural effusion. Cardiac silhouette is stable within normal limits. No pneumothorax. Skeletal structures are intact. Impression: Bibasilar atelectasis/consolidations and small right pleural effusion. Electronically Signed by Meir Dominguez MD 11/02/2018 01:15 P
[2018-11-02 13:52] LABS: ALBUMIN 2.9 GM/DL (3.2-5.2); BILIRUBIN,DIRECT 0.2 MG/DL (0.0-0.2); BILIRUBIN,TOTAL 0.3 MG/DL (0.2-1.0); CALCIUM LEVEL 8.8 MG/DL (8.8-10.2); CK-MB VALUE MASS 1.3 NG/ML (<3.6); CREATININE FOR GFR 1.43 MG/DL (0.70-1.30); GLOMERULAR FILTRATION RATE 52.7 (>49); MB/CK RELATIVE INDEX 2.1 (< OR =4); POTASSIUM SERUM 5.2 MEQ/L (3.5-5.1); THYROID STIMULATING HORMONE 1.44 uIU/ML (0.358-3.740); TOTAL PROTEIN 6.3 GM/DL (6.4-8.2); TROPONIN I 0.07 NG/ML (< 0.10)
--- NOTE | 2018-11-02 15:06 | REP ---
Clinical: Hypoxia. Cough. Technique: Axial noncontrast images from the thoracic inlet to the upper abdomen with coronal and sagittal re-formations. Comparison: 10/25/2018. Findings: There is near complete collapse to the left lower lobe as well as lingular atelectasis/consolidation. Right lower lobe consolidation and small area of medial right middle lobe consolidation with air bronchograms are identified. These findings have increased when compared to 10/25/2018. No significant pleural effusion. No pneumothorax. Atherosclerotic changes to the thoracic aorta and coronary arteries noted. Reactive mediastinal and hilar adenopathy cannot be excluded. Impression: Near complete collapse to the left lower lobe along with small area of lingular atelectasis/consolidation, right lower lobe and right middle lobe consolidations are noted and appear increased when compared to prior examination. Electronically Signed by Meir Dominguez MD 11/02/2018 02:58 P
[2018-11-02] MEDS ORDERED: D5W/0.45% SODIUM CHLORIDE 1,000 ML IV SCH (15:34)
[2018-11-02] MEDS ORDERED: OXYC15TA76 PO (15:36)
--- NOTE | 2018-11-02 15:42 | ECGEPIP ---
[facility] - ED Test Date: 2018-11-02 Pat Name: JERZY GAVIN Department: Room: - Gender: Male [employer]: : 1950 Requested By: LYLA Bullock Order Number: [id number] Reading MD: Zainab Sanchez Measurements Intervals [place] Rate: 70 P: 22 [place]: 146 QRS: QRSD: 85 T: 8 QT: 406 QTc: 440 Interpretive Statements SINUS RHYTHM POSSIBLE LEFT ATRIAL ENLARGEMENT similar to prior EKG 10/25/18 Electronically Signed on 11-02-2018 15:42:07 EDT by Zainab Sanchez
[2018-11-02] MEDS ORDERED: oxyCODONE 5MG TAB GT ONE (16:00)
[2018-11-02] MEDS: CETIRIZINE (ZyrTEC) 5 MG/5 ML UDC DYE FREE FT SCH (16:00)
[2018-11-02] MEDS ORDERED: ALBUTEROL SULFATE 2.5 MG/0.5 ML INH NEB SOLN INH PRN (16:00)
[2018-11-02] MEDS: PIPERACILLIN/TAZOBACTAM SOD 3.375 GM in D5W MINI-BAG PLUS 50 ML IV SCH ×2 (16:13→22:14)
--- NOTE | 2018-11-02 16:56 | HPEPDOC ---
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 He denies any complaints of fevers, chest pain, palpitations, abdominal pain, or any dysuria, urgency, frequency, and diarrhea. He c/o nasal congestion, and increased secretions with inability to clear his secretions. no headache, wt gain,weight loss, sore throat, ear pain, ear fullness, muscle / joint pains. He c/o HARVEY, and admits to doing bolus feedings while at 30 degree head elevation. Repeat CT chest11/02/18 : increased bilateral consolidations near collapse of left lung. Home Medications pls see below Allergies Coded Allergies: latex (Verified Allergy, Intermediate, hives, 10/07/18) Past Medical History Medical History As noted in HPI. Surgical History Cystoscopy Trans-bronchial biopsy for chronic left lower lobe infiltrate Right hand surgery 2006 G-tube replacement 2016; has been replaced. 3-4 times. Most recent which was one month ago. At [facility] Hernia repair Social History Denies the use of alcohol or illicit drugs; patient reports that he quit smoking 17 years ago but was a smoker of 35 years at less than 0.5 PPD Review of Systems Other systems 10 point review of systems negative unless otherwise specified in HPI. Physical Examination vitals: pls see below General Exam: Positive: Alert, Cooperative, No Acute Distress ENT Exam: Positive: Atraumatic; Negative: Mucous membr. moist/pink (dry mucous membranes) Chest Exam: Positive: Diminished bibasilar crackles Heart Exam: Positive: Rate Normal, Normal S1, Normal S2 Abdomen Exam: Positive: Soft, Other (+ G Tube) erythematous base; Negative: Tenderness Extremity Exam: Negative: Tenderness, Swelling Psych Exam: Positive: Oriented x 3 laboratory data, imaging studies, microbiology: pls see below CT chest 11/02/18: Near complete collapse to the left lower lobe along with small area of lingular atelectasis/consolidation, right lower lobe and right middle lobe consolidations are noted and appear increased when compared to prior examination. 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 He denies any complaints of fevers, chest pain, palpitations, abdominal pain, or any dysuria, urgency, frequency, and diarrhea. He c/o nasal congestion, and increased secretions with inability to clear his secretions. no headache, wt gain,weight loss, sore throat, ear pain, ear fullness, muscle / joint pains. He c/o HARVEY, and admits to doing bolus feedings while at 30 [address] head elevation. Repeat CT chest11/02/18 : increased bilateral consolidations near collapse of left lung. Recurrent aspiration pneumonia, in the setting of a G-tube - Physical did reveal decreased inspiratory effort bilaterally and bibasilar crackles - Leukopenia, No lactic acidosis - CTA chest : reviewed - c/w Supplemental oxygen - c/w 7days iv zosyn -check sputum cx and mrsa screen -hob 90 degrees during and 2hrs post bolus feedings, depilatory painter consult Dysphagia s/p G tube placement - Given the recent finding of recurrent aspiration, we'll decrease the amount of tube feedings and total bolus content - Advised that he should only have feedings when sitting up Tonsillar CA - Dx 2010 - s/p Chemo and radiation DLP - c/w Atorvastatin COPD - No evidence of exacerbation - c/w Inhaled therapy as ordered Recent PE - c/w full anticoagulation with Eliquis 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 - Has had trans-bronchial biopsy completed in the past Hypothyroidism - c/w Levothyroxine Anemia - Hg appears to be at baseline - Will continue to follow Anxiety - c/w Escitalopram Lyme disease - No active history Osteoarthritis / Chronic neck pain - c/w oxycodone based on home regimen DVT prophylaxis - c/w full anticoagulation with Eliquis Vital Signs Vital Signs Date Time Temp Pulse Resp B/P (MAP) Pulse Ox O2 Delivery O2 Flow Rate FiO2 11/02/18 13:51 71 16 94 Nasal Cannula 3.0 11/02/18 13:45 112/63 (79) 11/02/18 12:22 98.7 Laboratory Data Labs 24H Laboratory Tests 2 11/02/18 12:52: Immature Granulocyte % (Auto) 0.9, White Blood Count 5.4, Red Blood Count 3.70L, Hemoglobin 12.0L, Hematocrit 37.0L, Mean Corpuscular Volume 100.0H, Mean Corpuscular Hemoglobin 32.4, Mean Corpuscular Hemoglobin Concent 32.4, Red Cell Distribution Width 14.5, Platelet Count 204, Neutrophils (%) (Auto) 75.9H, Lymphocytes (%) (Auto) 6.5L, Monocytes (%) (Auto) 16.1H, Eosinophils (%) (Auto) 0.0, Basophils (%) (Auto) 0.6, Neutrophils # (Auto) 4.1, Lymphocytes # (Auto) 0.4L, Monocytes # (Auto) 0.9H, Eosinophils # (Auto) 0.0, Basophils # (Auto) 0.0, Nucleated Red Blood Cells % (auto) 0.0, Prothrombin Time 14.3H, Prothromb Time International Ratio 1.14, Blood Gas Bicarbonate Standard 25.9, Venous Blood pH 7.288L, Venous Blood Partial Pressure CO2 65.8H, Venous Blood Partial Pressure O2 35.4, Venous Blood Total Carbon Dioxide 32.8H, Venous Blood HCO3 30.8H, Venous Blood Oxygen Saturation 59.5L, Venous Blood Base Excess 2.6H, Anion Gap 9, Glomerular Filtration Rate 52.7, Lactic Acid Level 3.7*H, Calcium Level 8.8, Aspartate Amino Transf (AST/SGOT) 40H, Alanine Aminotransferase (ALT/SGPT) 49, Alkaline Phosphatase 84, Total Bilirubin 0.3, Direct Bilirubin 0.2, Total Crea lio Kinase 62, Creatine Kinase MB 1.3, Creatine Kinase MB Relative Index 2.10, Troponin I 0.07, YC-Yqo-H-Type Natriuretic Peptide 3215H, Total Protein 6.3L, Albumin 2.9L, Albumin/Globulin Ratio 0.85L, Thyroid Stimulating Hormone (TSH) 1.440 CBC/BMP Laboratory Tests 11/02/18 12:52 Red Blood Count 3.70 L, Mean Corpuscular Volume 100.0 H, Mean Corpuscular Hemoglobin 32.4, Mean Corpuscular Hemoglobin Concent 32.4, Red Cell Distribution Width 14.5, Neutrophils (%) (Auto) 75.9 H, Lymphocytes (%) (Auto) 6.5 L, Monocytes (%) (Auto) 16.1 H, Eosinophils (%) (Auto) 0.0, Basophils (%) (Auto) 0.6, Neutrophils # (Auto) 4.1, Lymphocytes # (Auto) 0.4 L, Monocytes # (Auto) 0.9 H, Eosinophils # (Auto) 0.0, Basophils # (Auto) 0.0 Microbiology Microbiology 11/02/18 Blood Culture, Received Pending 11/02/18 Blood Culture, Received Pending Home Medications Scheduled Apixaban (Eliquis) 5 Mg Tablet, 5 MG FT BID Atorvastatin Calcium (Atorvastatin Calcium) 40 Mg Tablet, 40 MG FT QHS Escitalopram Oxalate (Escitalopram Oxalate) 10 Mg Tab, 10 MG FT DAILY Lactose-Reduced Food (Ensure Plus) 237 Ml Liquid, 3 CAN FT TID Levothyroxine Sodium (Levothyroxine Sodium) 100 Mcg Tab, 100 MCG FT DAILY Metoprolol Tartrate (Metoprolol Tartrate) 25 Mg Tablet, 25 MG FT BID Scheduled PRN Albuterol Sulf (Albuterol Sulfate) 2.5 Mg/3 Ml Vial.neb, 2.5 MG INH Q4H PRN for SHORTNESS OF BREATH Oxycodone Hcl (Oxycodone HCl) 15 Mg Tablet, 15 MG PO Q4H PRN for PAIN Allergies Coded Allergies: latex (Verified Allergy, Intermediate, hives, 11/02/18) A-FIB/CHADSVASC A-FIB History Current/History of A-Fib/PAF?: No Current PO Anticoag Therapy: No FAREED LUCIO MD Nov 02, 2018 15:33
[2018-11-02] MEDS ORDERED: CALCIUM GLUCONATE 1,000 MG in D5W MINI-BAG PLUS 100 ML IV ONE (17:00)
[2018-11-02] MEDS ORDERED: SOD POLYSTYRENE SULFONATE SUSP 15 GM/60 ML UD GT ONE (17:00)
[2018-11-02 17:20] VITALS: BP 119/56
[2018-11-02] MEDS: NS 1,000 ML IV SCH (17:23)
[2018-11-02] MEDS: METOPROLOL TART 25 MG TABLET FT SCH (19:36)
[2018-11-02] MEDS: ATORVASTATIN 20 MG TAB GT SCH (19:36)
[2018-11-02] MEDS: APIXABAN 5 MG TAB (ELIQUIS) FT SCH (19:36)
[2018-11-02] MEDS: oxyCODONE 5MG TAB GT PRN (19:45)
[2018-11-02 20:00] VITALS: BP 135/71
[2018-11-02 22:23] LABS: BLOOD UREA NITROGEN 13 MG/DL (7-18); CALCIUM LEVEL 8.6 MG/DL (8.8-10.2); CARBON DIOXIDE LEVEL 33 MEQ/L (21-32); CHLORIDE LEVEL 98 MEQ/L (98-107); CREATININE FOR GFR 1.02 MG/DL (0.70-1.30); GLOMERULAR FILTRATION RATE > 60.0 (>49); GLUCOSE, FASTING 156 MG/DL (70-100); POTASSIUM SERUM 3.9 MEQ/L (3.5-5.1); SODIUM LEVEL 134 MEQ/L (136-145)
[2018-11-03] VITALS: BP 103/57
[2018-11-03] MEDS: oxyCODONE 5MG TAB GT PRN ×5 (02:51→20:33)
[2018-11-03 04:00] VITALS: BP 103/58
[2018-11-03 04:20] LABS: HEMATOCRIT 32.8 % (42.0-52.0); HEMOGLOBIN 10.4 g/dl (13.5-17.5); MEAN CORPUSCULAR HEMOGLOBIN 30.8 pg (27.0-33.0); MEAN CORPUSCULAR HGB CONC 31.7 g/dl (32.0-36.5); PLATELET COUNT, AUTOMATED 187 10^3/uL (150-450); RED BLOOD COUNT 3.38 10^6/uL (4.30-6.10)
[2018-11-03] MEDS: PIPERACILLIN/TAZOBACTAM SOD 3.375 GM in D5W MINI-BAG PLUS 50 ML IV SCH ×4 (04:25→20:34)
[2018-11-03] MEDS: NS 1,000 ML IV SCH (04:26)
[2018-11-03 04:45] LABS: BLOOD UREA NITROGEN 11 MG/DL (7-18); CALCIUM LEVEL 8.5 MG/DL (8.8-10.2); CARBON DIOXIDE LEVEL 34 MEQ/L (21-32); CHLORIDE LEVEL 100 MEQ/L (98-107); CREATININE FOR GFR 0.84 MG/DL (0.70-1.30); GLOMERULAR FILTRATION RATE > 60.0 (>49); GLUCOSE, FASTING 102 MG/DL (70-100); POTASSIUM SERUM 3.8 MEQ/L (3.5-5.1); PREALBUMIN 9.9 MG/DL (20.0-40.0); SODIUM LEVEL 137 MEQ/L (136-145)
[2018-11-03] MEDS: LEVOTHYROXINE 100MCG TABLET (0.1MG) GT SCH (06:19)
[2018-11-03] MEDS: CETIRIZINE (ZyrTEC) 5 MG/5 ML UDC DYE FREE FT SCH (07:38)
[2018-11-03] MEDS: APIXABAN 5 MG TAB (ELIQUIS) FT SCH ×2 (07:38→20:34)
[2018-11-03] MEDS: METOPROLOL TART 25 MG TABLET FT SCH ×2 (07:40→20:33)
[2018-11-03] MEDS: ESCITALOPRAM OXALATE 10 MG TAB (LEXAPRO) FT SCH (07:41)
--- NOTE | 2018-11-03 07:46 | IPNPDOC ---
Date Seen The patient was seen on 11/03/18. Progress Note Subjective: Per Rn, no cough or aspiration overnight. had 3 loose bm after kayexalate with normal potassium and creatinine after ivfluids. pt had no fever or chills. denies sob, chest pain this morning. Tube feedings well tolerated without residuals . Physical Examination vitals: pls see below General Exam: Positive: Alert, Cooperative, No Acute Distress ENT Exam: Positive: Atraumatic; Negative: Mucous membr. moist/pink (dry mucous membranes) Chest Exam: Positive: Diminished bibasilar crackles Heart Exam: Positive: Rate Normal, Normal S1, Normal S2 Abdomen Exam: Positive: Soft, Other (+ G Tube) erythematous base; Negative: Tenderness Extremity Exam: Negative: Tenderness, Swelling Psych Exam: Positive: Oriented x 3 laboratory data, imaging studies, microbiology: pls see below CT chest 11/02/18: Near complete collapse to the left lower lobe along with small area of lingular atelectasis/consolidation, right lower lobe and right middle lobe consolidations are noted and appear increased when compared to prior examination. 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 He denies any complaints of fevers, chest pain, palpitations, abdominal pain, or any dysuria, urgency, frequency, and diarrhea. He c/o nasal congestion, and increased secretions with inability to clear his secretions. no headache, wt gain,weight loss, sore throat, ear pain, ear fullness, muscle / joint pains. He c/o HARVEY, and admits to doing bolus feedings while at 30 degree head elevation. Repeat CT chest11/02/18 : increased bilateral consolidations near collapse of left lung. Recurrent aspiration pneumonia, in the setting of a G-tube - Physical did reveal decreased inspiratory effort bilaterally and bibasilar crackles - Leukopenia, No lactic acidosis - CTA chest 119: reviewed - c/w Supplemental oxygen - c/w 7days iv zosyn -check sputum cx and mrsa screen -hob 90 degrees during and 2hrs post bolus feedings, platen drier operator consult Dysphagia s/p G tube placement - Given the recent finding of recurrent aspiration, we'll decrease the amount of tube feedings and total bolus content - Advised that he should only have feedings when sitting up Tonsillar CA - Dx 2010 - s/p Chemo and radiation DLP - c/w Atorvastatin COPD - No evidence of exacerbation - c/w Inhaled therapy as ordered Recent PE - c/w full anticoagulation with Eliquis 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 transfer to [facility] and PT eval. VS, I&O, 24H, [facility] Vital Signs/I&O Vital Signs Date Time Temp Pulse Resp B/P (MAP) Pulse Ox O2 Delivery O2 Flow Rate FiO2 11/03/18 07:40 56 111/71 11/03/18 07:39 16 97 11/03/18 04:00 2.0 11/03/18 04:00 97.1 11/02/18 17:05 Nasal Cannula I&O- Last 24 Hours up to 6 AM 11/03/18 06:00 Intake Total 2775 ml Output Total 450 ml Balance 2325 ml Laboratory Data 24H LABS Laboratory Tests 2 11/02/18 12:52: Immature Granulocyte % (Auto) 0.9, White Blood Count 5.4, Red Blood Count 3.70L, Hemoglobin 12.0L, Hematocrit 37.0L, Mean Corpuscular Volume 100.0H, Mean Corpuscular Hemoglobin 32.4, Mean Corpuscular Hemoglobin Concent 32.4, Red Cell Distribution Width 14.5, Platelet Count 204, Neutrophils (%) (Auto) 75.9H, Lymphocytes (%) (Auto) 6.5L, Monocytes (%) (Auto) 16.1H, Eosinophils (%) (Auto) 0.0, Basophils (%) (Auto) 0.6, Neutrophils # (Auto) 4.1, Lymphocytes # (Auto) 0.4L, Monocytes # (Auto) 0.9H, Eosinophils # (Auto) 0.0, Basophils # (Auto) 0.0, Nucleated Red Blood Cells % (auto) 0.0, Prothrombin Time 14.3H, Prothromb Time International Ratio 1.14, Blood Gas Bicarbonate Standard 25.9, Venous Blood pH 7.288L, Venous Blood Partial Pressure CO2 65.8H, Venous Blood Partial Pressure O2 35.4, Venous Blood Total Carbon Dioxide 32.8H, Venous Blood HCO3 30.8H, Venous Blood Oxygen Saturation 59.5L, Venous Blood Base Excess 2.6H, Anion Gap 9, Glomerular Filtration Rate 52.7, Lactic Acid Level 3.7*H, Calcium Level 8.8, Aspartate Amino Transf (AST/SGOT) 40H, Alanine Aminotransferase (ALT/SGPT) 49, Alkaline Phosphatase 84, Total Bilirubin 0.3, Direct Bilirubin 0.2, Total Creatine Kinase 62, Creatine Kinase MB 1.3, Creatine Kinase MB Relative Index 2.10, Troponin I 0.07, GH-Vdi-I-Type Natriuretic Peptide 3215H, Total Protein 6.3L, Albumin 2.9L, Albumin/Globulin Ratio 0.85L, Thyroid Stimulating Hormone (TSH) 1.440 11/02/18 17:32: Lactic Acid Followup at 4 Hours 1.7 11/02/18 21:47: Anion Gap 3L, Glomerular Filtration Rate > 60.0, Calcium Level 8.6L, Blood Urea Nitrogen 13, Creatinine 1.02, Sodium Level 134L, Potassium Level 3.9#, Chloride Level 98, Carbon Dioxide Level 33H 11/03/18 04:09: Nucleated Red Blood Cells % (auto) 0.0, Anion Gap 3L, Glomerular Filtration Rate > 60.0, Calcium Level 8.5L, Blood Urea Nitrogen 11, Creatinine 0.84, Sodium Level 137, Potassium Level 3.8, Chloride Level 100, Carbon Dioxide Level 34H, Prealbumin 9.9L CBC/BMP Laboratory Tests 11/02/18 12:52 Red Blood Count 3.70 L, Mean Corpuscular Volume 100.0 H, Mean Corpuscular Hemoglobin 32.4, Mean Corpuscular Hemoglobin Concent 32.4, Red Cell Distribution Width 14.5, Neutrophils (%) (Auto) 75.9 H, Lymphocytes (%) (Auto) 6.5 L, Monocytes (%) (Auto) 16.1 H, Eosinophils (%) (Auto) 0.0, Basophils (%) (Auto) 0.6, Neutrophils # (Auto) 4.1, Lymphocytes # (Auto) 0.4 L, Monocytes # (Auto) 0.9 H, Eosinophils # (Auto) 0.0, Basophils # (Auto) 0.0 11/02/18 21:47 Calcium Level 8.6 L 11/03/18 04:09 Red Blood Count 3.38 L, Mean Corpuscular Volume 97.0 H, Mean Corpuscular Hemoglo bin 30.8, Mean Corpuscular Hemoglobin Concent 31.7 L, Red Cell Distribution Width 14.6 H, Calcium Level 8.5 L Microbiology Microbiology 11/02/18 Blood Culture, Received Pending 11/02/18 Blood Culture, Received Pending 11/02/18 MRSA Screen, Received Pending FAREED LUCIO MD Nov 03, 2018 07:46
--- NOTE | 2018-11-03 07:55 | REP ---
Clinical: Shortness of breath. Comparison: 11/02/2018. Findings: Mediastinum and cardiac silhouette are stable. Chronic elevation to the right hemidiaphragm is again appreciated along with bilateral lower lobe infiltrates essentially unchanged from prior examination. No pneumothorax. Skeletal structures intact. Impression: No significant change from prior examination. Bibasilar infiltrates again noted. Electronically Signed by Meir Dominguez MD 11/03/2018 07:46 A
[2018-11-03 08:00] VITALS: BP 111/71
[2018-11-03 12:00] VITALS: BP 117/60
[2018-11-03 16:00] VITALS: BP 125/62
[2018-11-03 20:00] VITALS: BP 118/70
[2018-11-03] MEDS: ATORVASTATIN 20 MG TAB GT SCH (20:33)
[2018-11-04] MEDS: oxyCODONE 5MG TAB GT PRN ×5 (00:44→20:43)
[2018-11-04] MEDS: PIPERACILLIN/TAZOBACTAM SOD 3.375 GM in D5W MINI-BAG PLUS 50 ML IV SCH ×4 (03:55→22:27)
[2018-11-04 04:00] VITALS: BP 120/68
[2018-11-04] MEDS: LEVOTHYROXINE 100MCG TABLET (0.1MG) GT SCH (05:41)
[2018-11-04 08:00] VITALS: BP 146/75
[2018-11-04] MEDS: ESCITALOPRAM OXALATE 10 MG TAB (LEXAPRO) FT SCH (09:00)
--- NOTE | 2018-11-04 09:12 | IPNPDOC ---
Date Seen The patient was seen on 11/04/18. Progress Note Date Seen The patient was seen on 11/03/18. Progress Note Subjective: Pt c/o neck pain ,but refused bengay and kpad. no fever or chills. no sob. still with difficulty expectorating and cough productive of white yellow sputum. Tube feedings adjusted to jevity and continuous per barista without residuals. Pt needs to finish 7days iv abx with discharge planned for Thursday. G tube site is excoriated, and barrier ointment to be provided. He has been using his acapella device and says his breathing is more comfortable. Physical Examination vitals: pls see below General Exam: Positive: Alert, Cooperative, No Acute Distress ENT Exam: Positive: Atraumatic; Negative: Mucous membr. moist/pink (dry mucous membranes) Chest Exam: Positive: Diminished bibasilar crackles Heart Exam: Positive: Rate Normal, Normal S1, Normal S2 Abdomen Exam: Positive: Soft, Other (+ G Tube) erythematous base; Negative: Tenderness Extremity Exam: Negative: Tenderness, Swelling Psych Exam: Positive: Oriented x 3 laboratory data, imaging studies, microbiology: pls see below CT chest 11/02/18: Near complete collapse to the left lower lobe along with small area of lingular atelectasis/consolidation, right lower lobe and right middle lobe consolidations are noted and appear increased when compared to prior examination. 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 He denies any complaints of fevers, chest pain, palpitations, abdominal pain, or any dysuria, urgency, frequency, and diarrhea. He c/o nasal congestion, and increased secretions with inability to clear his secretions. no headache, wt gain,weight loss, sore throat, ear pain, ear fullness, muscle / joint pains. He c/o HARVEY, and admits to doing bolus feedings while at 30 degree head elevation. Repeat CT chest11/02/18 : increased bilateral consolidations near collapse of left lung. Recurrent aspiration pneumonia, in the setting of a G-tube - Physical did reveal decreased inspiratory effort bilaterally and bibasilar crackles - Leukopenia, No lactic acidosis - CTA chest : reviewed - c/w Supplemental oxygen - c/w 7days iv zosyn -check sputum cx and mrsa screen -hob 90 degrees during and 2hrs post bolus feedings, barista consult Dysphagia s/p G tube placement - Given the recent finding of recurrent aspiration, we'll decrease the amount of tube feedings and total bolus content 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 - Has had trans-bronchial biopsy completed in the past Hypothyroidism - c/w Levothyroxine Anemia - Hg appears to be at baseline - Will continue to follow Anxiety - c/w Escitalopram Lyme disease - No active history Osteoarthritis / Chronic neck pain - c/w oxycodone based on home regimen DVT prophylaxis - c/w full anticoagulation with Eliquis VS, I&O, 24H, Fishbone Vital Signs/I&O Vital Signs Date Time Temp Pulse Resp B/P (MAP) Pulse Ox O2 Delivery O2 Flow Rate FiO2 11/04/18 06:13 18 11/04/18 04:00 2.0 11/04/18 04:00 97.9 60 120/68 (85) 97 11/02/18 17:05 Nasal Cannula I&O- Last 24 Hours up to 6 AM 11/04/18 06:00 Intake Total 2170 ml Output Total 1600 ml Balance 570 ml Laboratory Data Microbiology Microbiology 11/02/18 Blood Culture - Preliminary, Resulted No growth after 24 hours . All specim... 11/02/18 Blood Culture - Preliminary, Resulted No growth after 24 hours . All specim... 11/02/18 MRSA Screen - Final, Complete FAREED LUCIO MD Nov 04, 2018 09:10
[2018-11-04] MEDS: APIXABAN 5 MG TAB (ELIQUIS) FT SCH ×2 (10:01→20:43)
[2018-11-04] MEDS: CETIRIZINE (ZyrTEC) 5 MG/5 ML UDC DYE FREE FT SCH (10:01)
[2018-11-04] MEDS: METOPROLOL TART 25 MG TABLET FT SCH ×2 (10:02→20:43)
[2018-11-04 12:00] VITALS: BP 100/57
[2018-11-04 16:00] VITALS: BP 127/74
[2018-11-04] MEDS: ATORVASTATIN 20 MG TAB GT SCH (20:42)
[2018-11-04 21:00] VITALS: O2SAT 96
[2018-11-04 22:00] VITALS: BP 130/73
[2018-11-05] MEDS: oxyCODONE 5MG TAB GT PRN ×5 (02:25→22:04)
[2018-11-05] MEDS: PIPERACILLIN/TAZOBACTAM SOD 3.375 GM in D5W MINI-BAG PLUS 50 ML IV SCH ×4 (03:47→21:59)
[2018-11-05] MEDS: LEVOTHYROXINE 100MCG TABLET (0.1MG) GT SCH (05:39)
[2018-11-05 06:00] VITALS: BP 107/60
[2018-11-05] MEDS: METOPROLOL TART 25 MG TABLET FT SCH ×2 (09:00→22:02)
[2018-11-05] MEDS: APIXABAN 5 MG TAB (ELIQUIS) FT SCH ×2 (09:12→22:04)
[2018-11-05] MEDS: ESCITALOPRAM OXALATE 10 MG TAB (LEXAPRO) FT SCH (09:14)
[2018-11-05] MEDS: CETIRIZINE (ZyrTEC) 5 MG/5 ML UDC DYE FREE FT SCH (09:14)
[2018-11-05 14:00] VITALS: BP 117/71
--- NOTE | 2018-11-05 14:09 | IPNPDOC ---
Date Seen The patient was seen on 11/05/18. Progress Note Subjective: "I'm doing okay." He denies any sob, fever, chills. Currently on continuous tube feeding which will be continued at hospital discharge. PFS consulted to make arrangements. Pt is to complete 7 days iv zosyn. He denies any recurrent productive cough. Eating well, and denies any constipation or diarrhea. Objective Physical Examination: vitals: pls see below General Exam: Positive: Alert, Cooperative, No Acute Distress ENT Exam: Positive: Atraumatic; Negative: Mucous membr. moist/pink (dry mucous membranes) Chest Exam: Positive: Diminished bibasilar crackles Heart Exam: Positive: Rate Normal, Normal S1, Normal S2 Abdomen Exam: Positive: Soft, Other (+ G Tube) erythematous base; Negative: Tenderness Extremity Exam: Negative: Tenderness, Swelling Psych Exam: Positive: Oriented x 3 laboratory data, imaging studies, microbiology: pls see below CT chest 11/02/18: Near complete collapse to the left lower lobe along with small area of lingular atelectasis/consolidation, right lower lobe and right middle lobe consolidations are noted and appear increased when compared to prior examination. 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 He denies any complaints of fevers, chest pain, palpitations, abdominal pain, or any dysuria, urgency, frequency, and diarrhea. He c/o nasal congestion, and increased secretions with inability to clear his secretions. no headache, wt gain,weight loss, sore throat, ear pain, ear fullness, muscle / joint pains. He c/o HARVEY, and admits to doing bolus feedings while at 30 degree head elevation. Repeat CT chest11/02/18 : increased bilateral consolidations near collapse of left lung. Recurrent aspiration pneumonia, in the setting of a G-tube - Physical did reveal decreased inspiratory effort bilaterally and bibasilar crackles - Leukopenia, No lactic acidosis - CTA chest 119: reviewed - c/w Supplemental oxygen - c/w 7days iv zosyn -check sputum cx and mrsa screen -hob 90 degrees during and 2hrs post bolus feedings, printer apprentice consult Dysphagia s/p G tube placement - Given the recent finding of recurrent aspiration,now on continuous tube feedings which needs to be arranged. 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 - Has had trans-bronchial biopsy completed in the past Hypothyroidism - c/w Levothyroxine Anemia - Hg appears to be at baseline - Will continue to follow Anxiety - c/w Escitalopram Lyme disease - No active history Osteoarthritis / Chronic neck pain - c/w oxycodone based on home regimen DVT prophylaxis - c/w full anticoagulation with Eliquis VS, I&O, 24H, Fishbone Vital Signs/I&O Vital Signs Date Time Temp Pulse Resp B/P (MAP) Pulse Ox O2 Delivery O2 Flow Rate FiO2 11/05/18 06:00 97.8 68 18 107/60 (76) 98 2.0 11/04/18 21:00 Nasal Cannula I&O- Last 24 Hours up to 6 AM 11/05/18 06:00 Intake Total 1950 ml Output Total 2275 ml Balance -325 ml Laboratory Data Microbiology Microbiology 11/02/18 Blood Culture - Preliminary, Resulted No Growth after 48 hours. All Specime... 11/02/18 Blood Culture - Preliminary, Resulted No Growth after 48 hours. All Specime... 11/02/18 MRSA Screen - Final, Complete FAREED LUCIO MD Nov 05, 2018 07:29
[2018-11-05 14:39] VITALS: O2SAT 96
[2018-11-05] MEDS: ATORVASTATIN 20 MG TAB GT SCH (21:59)
[2018-11-05 22:00] VITALS: BP 110/67
[2018-11-06] MEDS: oxyCODONE 5MG TAB GT PRN ×5 (03:04→21:44)
[2018-11-06] MEDS: PIPERACILLIN/TAZOBACTAM SOD 3.375 GM in D5W MINI-BAG PLUS 50 ML IV SCH ×4 (04:01→21:44)
[2018-11-06 06:00] VITALS: BP 92/58
[2018-11-06] MEDS: LEVOTHYROXINE 100MCG TABLET (0.1MG) GT SCH (06:11)
[2018-11-06] MEDS: CETIRIZINE (ZyrTEC) 5 MG/5 ML UDC DYE FREE FT SCH (08:27)
[2018-11-06] MEDS: ESCITALOPRAM OXALATE 10 MG TAB (LEXAPRO) FT SCH (08:28)
[2018-11-06] MEDS: METOPROLOL TART 25 MG TABLET FT SCH ×2 (08:28→20:04)
[2018-11-06] MEDS: APIXABAN 5 MG TAB (ELIQUIS) FT SCH ×2 (08:28→20:43)
--- NOTE | 2018-11-06 10:12 | IPNPDOC ---
Date Seen The patient was seen on 11/06/18. Progress Note Subjective: Kangaroo pump script given to RN yesterday for Thursday Discharge. Pt says he can manage at home with his son, but mayneed home care. "I'm doing okay." He denies any sob, fever, chills. Currently on continuous tube feeding which will be continued at hospital discharge. PFS consulted to make arrangements. Pt is to complete 7 days iv zosyn. He denies any recurrent productive cough. Eating well, and denies any constipation or diarrhea. Objective Physical Examination: vitals: pls see below General Exam: Positive: Alert, Cooperative, No Acute Distress ENT Exam: Positive: Atraumatic; Negative: Mucous membr. moist/pink (dry mucous membranes) Chest Exam: Positive: Diminished bibasilar crackles Heart Exam: Positive: Rate Normal, Normal S1, Normal S2 Abdomen Exam: Positive: Soft, Other (+ G Tube) erythematous base; Negative: Tenderness Extremity Exam: Negative: Tenderness, Swelling Psych Exam: Positive: Oriented x 3 laboratory data, imaging studies, microbiology: pls see below CT chest 11/02/18: Near complete collapse to the left lower lobe along with small area of lingular atelectasis/consolidation, right lower lobe and right middle lobe consolidations are noted and appear increased when compared to prior examination. 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 He denies any complaints of fevers, chest pain, palpitations, abdominal pain, or any dysuria, urgency, frequency, and diarrhea. He c/o nasal congestion, and increased secretions with inability to clear his secretions. no headache, wt gain,weight loss, sore throat, ear pain, ear fullness, muscle / joint pains. He c/o HARVEY, and admits to doing bolus feedings while at 30 degree head elevation. Repeat CT chest11/02/18 : increased bilateral consolidations near collapse of left lung. Recurrent aspiration pneumonia, in the setting of a G-tube - Physical did reveal decreased inspiratory effort bilaterally and bibasilar crackles - Leukopenia, No lactic acidosis - CTA chest : reviewed - c/w Supplemental oxygen - c/w 7days iv zosyn -check sputum cx and mrsa screen -hob 90 degrees during and 2hrs post bolus feedings, food and beverage assistant manager consult Dysphagia s/p G tube placement - Given the recent finding of recurrent aspiration,now on continuous tube feedings which needs to be arranged. 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 - Has had trans-bronchial biopsy completed in the past Hypothyroidism - c/w Levothyroxine Anemia - Hg appears to be at baseline - Will continue to follow Anxiety - c/w Escitalopram Lyme disease - No active history Osteoarthritis / Chronic neck pain - c/w oxycodone based on home regimen DVT prophylaxis - c/w full anticoagulation with Eliquis VS, I&O, 24H, Fishbone Vital Signs/I&O Vital Signs Date Time Temp Pulse Resp B/P (MAP) Pulse Ox O2 Delivery O2 Flow Rate FiO2 11/06/18 03:34 12 95 1.0 11/05/18 22:02 74 129/77 11/05/18 22:00 97.7 11/05/18 14:39 Nasal Cannula I&O- Last 24 Hours up to 6 AM 11/06/18 06:00 Intake Total 1603 ml Output Total 2195 ml Balance -592 ml Laboratory Data Microbiology Microbiology 11/02/18 Blood Culture - Preliminary, Resulted No Growth after 72 hours. All specime... 11/02/18 Blood Culture - Preliminary, Resulted No Growth after 72 hours. All specime... 11/02/18 MRSA Screen - Final, Complete FAREED LUCIO MD Nov 06, 2018 06:34
[2018-11-06 14:00] VITALS: BP 80/58
[2018-11-06] MEDS ORDERED: NS 250 ML IV ONE (14:30)
[2018-11-06 20:03] VITALS: BP 109/64
[2018-11-06] MEDS: ATORVASTATIN 20 MG TAB GT SCH (20:43)
--- NOTE | 2018-11-06 21:31 | REP ---
Clinical: Shortness of breath. Comparison: 11/03/2018. Findings: Mediastinum and cardiac silhouette are within normal limits and stable. Lung chaidez demonstrate bibasilar opacities consistent with areas of consolidation and small/moderate right pleural effusion. Small left pleural effusion cannot be excluded as well. No pneumothorax. Skeletal structures appear intact. Impression: Chronic changes with superimposed lower lobe consolidations and pleural effusions (right greater than left). Findings are similar to prior examination. Electronically Signed by Meir Dominguez MD 11/06/2018 09:23 P
[2018-11-06 22:00] VITALS: BP 107/60
[2018-11-07] MEDS: oxyCODONE 5MG TAB GT PRN ×5 (02:55→22:24)
[2018-11-07] MEDS: PIPERACILLIN/TAZOBACTAM SOD 3.375 GM in D5W MINI-BAG PLUS 50 ML IV SCH ×4 (03:50→22:22)
[2018-11-07 05:56] LABS: HEMATOCRIT 36.5 % (42.0-52.0); HEMOGLOBIN 11.5 g/dl (13.5-17.5); MEAN CORPUSCULAR HEMOGLOBIN 30.4 pg (27.0-33.0); MEAN CORPUSCULAR HGB CONC 31.5 g/dl (32.0-36.5); MEAN CORPUSCULAR VOLUME 96.6 fl (80.0-96.0); PLATELET COUNT, AUTOMATED 212 10^3/uL (150-450); RED BLOOD COUNT 3.78 10^6/uL (4.30-6.10); WHITE BLOOD COUNT 5.8 10^3/uL (4.0-10.0)
[2018-11-07 06:00] VITALS: BP 105/57
[2018-11-07] MEDS: LEVOTHYROXINE 100MCG TABLET (0.1MG) GT SCH (06:09)
[2018-11-07 06:21] LABS: BLOOD UREA NITROGEN 11 MG/DL (7-18); CALCIUM LEVEL 8.2 MG/DL (8.8-10.2); CARBON DIOXIDE LEVEL 33 MEQ/L (21-32); CHLORIDE LEVEL 98 MEQ/L (98-107); GLOMERULAR FILTRATION RATE > 60.0 (>49); GLUCOSE, FASTING 109 MG/DL (70-100); POTASSIUM SERUM 3.9 MEQ/L (3.5-5.1); SODIUM LEVEL 137 MEQ/L (136-145)
[2018-11-07 08:15] VITALS: BP 106/66
[2018-11-07] MEDS: CETIRIZINE (ZyrTEC) 5 MG/5 ML UDC DYE FREE FT SCH (08:22)
[2018-11-07] MEDS: APIXABAN 5 MG TAB (ELIQUIS) FT SCH ×2 (08:22→22:22)
[2018-11-07] MEDS: ESCITALOPRAM OXALATE 10 MG TAB (LEXAPRO) FT SCH (08:23)
[2018-11-07] MEDS: METOPROLOL TART 25 MG TABLET FT SCH ×2 (08:48→20:42)
--- NOTE | 2018-11-07 13:13 | IPNPDOC ---
Date Seen The patient was seen on 11/07/18. Progress Note Subjective: Kangaroo pump script given to RN yesterday for Thursday Discharge. According to the patient, he has not been taught how to do continuous tube feeding yet, which may be a barrier for discharge. "I'm doing okay." He denies any sob, fever, chills. Currently on continuous tube feeding which will be continued at hospital discharge. PFS consulted to make arrangements. Pt is to complete 7 days iv zosyn. He denies any recurrent productive cough. Eating well, and denies any constipation or diarrhea. Objective Physical Examination: vitals: pls see below General Exam: Positive: Alert, Cooperative, No Acute Distress ENT Exam: Positive: Atraumatic; Negative: Mucous membr. moist/pink (dry mucous membranes) Chest Exam: Positive: Diminished bibasilar crackles Heart Exam: Positive: Rate Normal, Normal S1, Normal S2 Abdomen Exam: Positive: Soft, Other (+ G Tube) erythematous base; Negative: Tenderness Extremity Exam: Negative: Tenderness, Swelling Psych Exam: Positive: Oriented x 3 laboratory data, imaging studies, microbiology: pls see below CT chest 11/02/18: Near complete collapse to the left lower lobe along with small area of lingular atelectasis/consolidation, right lower lobe and right middle lobe consolidations are noted and appear increased when compared to prior examination. 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 He denies any complaints of fevers, chest pain, palpitations, abdominal pain, or any dysuria, urgency, frequency, and diarrhea. He c/o nasal congestion, and increased secretions with inability to clear his secretions. no headache, wt gain,weight loss, sore throat, ear pain, ear fullness, muscle / joint pains. He c/o HARVEY, and admits to doing bolus feedings while at 30 degree head elevation. Repeat CT chest11/02/18 : increased bilateral consolidations near collapse of left lung. Recurrent aspiration pneumonia, in the setting of a G-tube - Physical did reveal decreased inspiratory effort bilaterally and bibasilar crackles - Leukopenia, No lactic acidosis - CTA chest : reviewed - c/w Supplemental oxygen - c/w 7days iv zosyn -check sputum cx and mrsa screen -hob 90 degrees during and 2hrs post bolus feedings, mop man consult Dysphagia s/p G tube placement - Given the recent finding of recurrent aspiration,now on continuous tube feedings which needs to be arranged. 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 - Has had trans-bronchial biopsy completed in the past Hypothyroidism - c/w Levothyroxine Anemia - Hg appears to be at baseline - Will continue to follow Anxiety - c/w Escitalopram Lyme disease - No active history Osteoarthritis / Chronic neck pain - c/w oxycodone based on home regimen DVT prophylaxis - c/w full anticoagulation with Eliquis VS, I&O, 24H, Fishbone Vital Signs/I&O Vital Signs Date Time Temp Pulse Resp B/P (MAP) Pulse Ox O2 Delivery O2 Flow Rate FiO2 11/07/18 12:48 18 11/07/18 09:27 0.5 11/07/18 08:48 66 106/62 11/07/18 06:00 98.0 95 11/05/18 14:39 Nasal Cannula I&O- Last 24 Hours up to 6 AM 11/07/18 06:00 Intake Total 1475 ml Output Total 2775 ml Balance -1300 ml Laboratory Data 24H LABS Laboratory Tests 2 11/07/18 05:31: Nucleated Red Blood Cells % (auto) 0.0, Anion Gap 6L, Glomerular Filtration Rate > 60.0, Blood Urea Nitrogen 11, Creatinine 0.90, Sodium Level 137, Potassium Level 3.9, Chloride Level 98, Carbon Dioxide Level 33H, Calcium Level 8.2L CBC/BMP Laboratory Tests 11/07/18 05:31 Red Blood Count 3.78 L, Mean Corpuscular Volume 96.6 H, Mean Corpuscular Hemoglobin 30.4, Mean Corpuscular Hemoglobin Concent 31.5 L, Red Cell Distribution Width 14.4, Calcium Level 8.2 L Microbiology Microbiology 11/02/18 Blood Culture - Preliminary, Resulted No Growth after 72 hours. All specime... 11/02/18 Blood Culture - Final, Complete NO GROWTH AFTER 5 DAYS 11/02/18 MRSA Screen - Final, Complete FAREED LUCIO MD Nov 07, 2018 13:13
[2018-11-07 14:00] VITALS: BP 105/62
[2018-11-07 22:00] VITALS: BP 101/57
[2018-11-07] MEDS: ATORVASTATIN 20 MG TAB GT SCH (22:22)
[2018-11-08] MEDS: PIPERACILLIN/TAZOBACTAM SOD 3.375 GM in D5W MINI-BAG PLUS 50 ML IV SCH ×5 (03:25→22:06)
[2018-11-08] MEDS: oxyCODONE 5MG TAB GT PRN ×4 (03:28→19:46)
--- NOTE | 2018-11-08 05:56 | DS.PDOC ---
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 Also recommend changing to continuous administration via pump to decrease risk for aspiration FS Jevity 1.5 at 50ml/hr x 24 hours = 1800cal (81% kristie need), 76g protein (100% pro needs). 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 He denies any complaints of fevers, chest pain, palpitations, abdominal pain, or any dysuria, urgency, frequency, and diarrhea. He c/o nasal congestion, and increased secretions with inability to clear his secretions. no headache, wt gain,weight loss, sore throat, ear pain, ear fullness, muscle / joint pains. He c/o HARVEY, and admits to doing bolus feedings while at 30 degree head elevation. Repeat CT chest11/02/18 : increased bilateral consolidations near collapse of left lung. 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 moist/pink (dry mucous membranes) Chest Exam: Positive: Diminished bibasilar crackles Heart Exam: Positive: Rate Normal, Normal S1, Normal S2 Abdomen Exam: Positive: Soft, Other (+ G Tube) erythematous base; Negative: Tenderness Extremity Exam: Negative: Tenderness, Swelling Psych Exam: Positive: Oriented x 3 laboratory data, imaging studies, microbiology: pls see below CT chest 11/02/18: Near complete collapse to the left lower lobe along with small area of lingular atelectasis/consolidation, right lower lobe and right middle lobe consolidations are noted and appear increased when compared to prior examination. Time Spent on hospital discharge: 32 minutes. Vital Signs/I&Os Vital Signs Date Time Temp Pulse Resp B/P (MAP) Pulse Ox O2 Delivery O2 Flow Rate FiO2 11/08/18 03:58 16 11/08/18 03:28 94 0.5 11/07/18 22:00 97.1 64 101/57 (72) 11/05/18 14:39 Nasal Cannula I&O- Last 24 Hours up to 6 AM 11/08/18 06:00 Intake Total 2350 ml Output Total 1750 ml Balance 600 ml Microbiology Microbiology 11/02/18 Blood Culture - Final, Complete NO GROWTH AFTER 5 DAYS 11/02/18 Blood Culture - Final, Complete NO GROWTH AFTER 5 DAYS 11/02/18 MRSA Screen - Final, Complete Discharge Medications Scheduled Apixaban (Eliquis) 5 Mg Tablet, 5 MG FT BID, (Reported) Atorvastatin Calcium (Atorvastatin Calcium) 40 Mg Tablet, 40 MG FT QHS, (Reported) Escitalopram Oxalate (Escitalopram Oxalate) 10 Mg Tab, 10 MG FT DAILY, (Reported) Lactose-Reduced Food (Ensure Plus) 237 Ml Liquid, 3 CAN FT TID, (Reported) Levothyroxine Sodium (Levothyroxine Sodium) 100 Mcg Tab, 100 MCG FT DAILY, (Reported) Metoprolol Tartrate (Metoprolol Tartrate) 25 Mg Tablet, 25 MG FT BID, (Reported) Scheduled PRN Albuterol Sulf (Albuterol Sulfate) 2.5 Mg/3 Ml Vial.neb, 2.5 MG INH Q4H PRN for SHORTNESS OF BREATH, (Reported) Oxycodone Hcl (Oxycodone HCl) 15 Mg Tablet, 15 MG PO Q4H PRN for PAIN, (Reported) Allergies Coded Allergies: latex (Verified Allergy, Intermediate, hives, 11/02/18) FAREED LUCIO MD Nov 08, 2018 05:49
[2018-11-08 06:00] VITALS: BP 110/64
[2018-11-08] MEDS: LEVOTHYROXINE 100MCG TABLET (0.1MG) GT SCH (06:01)
[2018-11-08 06:19] LABS: HEMATOCRIT 36.8 % (42.0-52.0); MEAN CORPUSCULAR HEMOGLOBIN 30.8 pg (27.0-33.0); MEAN CORPUSCULAR HGB CONC 32.6 g/dl (32.0-36.5); MEAN CORPUSCULAR VOLUME 94.6 fl (80.0-96.0); PLATELET COUNT, AUTOMATED 207 10^3/uL (150-450); RED BLOOD COUNT 3.89 10^6/uL (4.30-6.10); WHITE BLOOD COUNT 5.3 10^3/uL (4.0-10.0)
[2018-11-08 06:39] LABS: BLOOD UREA NITROGEN 12 MG/DL (7-18); CALCIUM LEVEL 9.1 MG/DL (8.8-10.2); CARBON DIOXIDE LEVEL 33 MEQ/L (21-32); CHLORIDE LEVEL 100 MEQ/L (98-107); CREATININE FOR GFR 0.88 MG/DL (0.70-1.30); GLOMERULAR FILTRATION RATE > 60.0 (>49); GLUCOSE, FASTING 96 MG/DL (70-100); POTASSIUM SERUM 3.9 MEQ/L (3.5-5.1); SODIUM LEVEL 137 MEQ/L (136-145)
[2018-11-08] MEDS: ESCITALOPRAM OXALATE 10 MG TAB (LEXAPRO) FT SCH (08:24)
[2018-11-08] MEDS: APIXABAN 5 MG TAB (ELIQUIS) FT SCH ×2 (08:24→22:03)
[2018-11-08] MEDS: METOPROLOL TART 25 MG TABLET FT SCH ×2 (08:25→21:00)
[2018-11-08] MEDS: CETIRIZINE (ZyrTEC) 5 MG/5 ML UDC DYE FREE FT SCH (10:26)
[2018-11-08 14:00] VITALS: BP 103/58
[2018-11-08 22:00] VITALS: BP 110/59
[2018-11-08] MEDS: ATORVASTATIN 20 MG TAB GT SCH (22:02)
[2018-11-09] MEDS: oxyCODONE 5MG TAB GT PRN ×5 (00:34→20:39)
[2018-11-09] MEDS: PIPERACILLIN/TAZOBACTAM SOD 3.375 GM in D5W MINI-BAG PLUS 50 ML IV SCH ×2 (03:33→10:07)
[2018-11-09] MEDS: LEVOTHYROXINE 100MCG TABLET (0.1MG) GT SCH (05:59)
[2018-11-09 06:00] VITALS: BP 102/56
[2018-11-09 06:16] LABS: HEMATOCRIT 37.1 % (42.0-52.0); HEMOGLOBIN 11.8 g/dl (13.5-17.5); MEAN CORPUSCULAR HEMOGLOBIN 31.4 pg (27.0-33.0); MEAN CORPUSCULAR HGB CONC 31.8 g/dl (32.0-36.5); MEAN CORPUSCULAR VOLUME 98.7 fl (80.0-96.0); PLATELET COUNT, AUTOMATED 195 10^3/uL (150-450); RED BLOOD COUNT 3.76 10^6/uL (4.30-6.10); WHITE BLOOD COUNT 4.6 10^3/uL (4.0-10.0)
[2018-11-09 07:04] LABS: BLOOD UREA NITROGEN 13 MG/DL (7-18); CALCIUM LEVEL 8.8 MG/DL (8.8-10.2); CARBON DIOXIDE LEVEL 29 MEQ/L (21-32); CHLORIDE LEVEL 101 MEQ/L (98-107); CREATININE FOR GFR 0.87 MG/DL (0.70-1.30); GLOMERULAR FILTRATION RATE > 60.0 (>49); GLUCOSE, FASTING 108 MG/DL (70-100); POTASSIUM SERUM 3.7 MEQ/L (3.5-5.1); SODIUM LEVEL 138 MEQ/L (136-145)
[2018-11-09] MEDS: METOPROLOL TART 25 MG TABLET FT SCH ×2 (08:45→19:58)
[2018-11-09] MEDS: ESCITALOPRAM OXALATE 10 MG TAB (LEXAPRO) FT SCH (08:45)
[2018-11-09] MEDS: CETIRIZINE (ZyrTEC) 5 MG/5 ML UDC DYE FREE FT SCH (08:45)
[2018-11-09] MEDS: APIXABAN 5 MG TAB (ELIQUIS) FT SCH ×2 (08:45→20:38)
[2018-11-09 14:00] VITALS: BP 115/60
[2018-11-09] MEDS: ATORVASTATIN 20 MG TAB GT SCH (20:38)
[2018-11-09 22:00] VITALS: BP 114/59
[2018-11-10] MEDS: oxyCODONE 5MG TAB GT PRN ×5 (01:29→20:40)
[2018-11-10 02:40] VITALS: O2SAT 95
[2018-11-10 06:00] VITALS: BP 95/55
[2018-11-10 06:03] LABS: HEMATOCRIT 38.7 % (42.0-52.0); HEMOGLOBIN 12.4 g/dl (13.5-17.5); MEAN CORPUSCULAR HEMOGLOBIN 30.6 pg (27.0-33.0); MEAN CORPUSCULAR VOLUME 95.6 fl (80.0-96.0); PLATELET COUNT, AUTOMATED 216 10^3/uL (150-450); RED BLOOD COUNT 4.05 10^6/uL (4.30-6.10); WHITE BLOOD COUNT 5.1 10^3/uL (4.0-10.0)
[2018-11-10] MEDS: LEVOTHYROXINE 100MCG TABLET (0.1MG) GT SCH (06:15)
[2018-11-10 06:29] LABS: BLOOD UREA NITROGEN 12 MG/DL (7-18); CALCIUM LEVEL 8.6 MG/DL (8.8-10.2); CARBON DIOXIDE LEVEL 34 MEQ/L (21-32); CHLORIDE LEVEL 102 MEQ/L (98-107); CREATININE FOR GFR 0.75 MG/DL (0.70-1.30); GLOMERULAR FILTRATION RATE > 60.0 (>49); GLUCOSE, FASTING 128 MG/DL (70-100); SODIUM LEVEL 140 MEQ/L (136-145)
[2018-11-10] MEDS: METOPROLOL TART 25 MG TABLET FT SCH ×2 (08:31→20:53)
[2018-11-10] MEDS: CETIRIZINE (ZyrTEC) 5 MG/5 ML UDC DYE FREE FT SCH (08:31)
[2018-11-10] MEDS: APIXABAN 5 MG TAB (ELIQUIS) FT SCH ×3 (08:32→20:40)
[2018-11-10] MEDS: ESCITALOPRAM OXALATE 10 MG TAB (LEXAPRO) FT SCH (08:32)
[2018-11-10 09:00] VITALS: O2SAT 97
[2018-11-10 14:00] VITALS: BP 128/73
--- NOTE | 2018-11-10 20:09 | IPNPDOC ---
Date Seen The patient was seen on 11/10/18. Progress Note SUBJECTIVE: Patient denies any complaints today, including abdominal discomfort over G tube site. Has been waiting to be transferred out, is discharged. No acute events reported overnight. OBJECTIVE PHYSICAL EXAMINATION: VITAL SIGNS: Please see below. General: No acute distress, Alert Eyes: Normal sclera, EOMI, ABHAY HENT: Atraumatic, neck supple, moist mucous membranes Cardiovascular: Normal rate, normal rhythm. Pulmonary: Clear to auscultation b/l, no wheezing GI: Soft, nontender, G tube surrounding area clean and dry. Skin: Warm and dry Neuro: CN grossly intact. No focal deficits. Strengths equal b/l. Psych: oriented x 3 LABORATORY DATA, IMAGING STUDIES, MICROBIOLOGY: Please see below. ASSESSMENT AND PLAN: 1. Recurrent Aspiration PNA - s/p 7 days of zosyn treatment. - clinically improved. 2. Dysphagia - G tubed placed on this admission. - c/w tube feeding as scheduled. 3. Tonsillar ca - dx 2000 s/p chemo and radiation. 4. COPD - not in exacerbation. nebs PRN. 5. Hypothyroidism - c/w synthroid 6. OA/chronic joint pain - c/w home pain regimen 7. Recent PE - c/w Eliquis DISPOSITION: . VS, I&O, 24H, Fishbone Vital Signs/I&O Vital Signs Date Time Temp Pulse Resp B/P (MAP) Pulse Ox O2 Delivery O2 Flow Rate FiO2 11/10/18 17:02 18 11/10/18 14:00 98.2 66 128/73 (91) 95 0.5 11/10/18 09:00 Nasal Cannula I&O- Last 24 Hours up to 6 AM 11/10/18 05:59 Intake Total 2620 ml Output Total 1975 ml Balance 645 ml Laboratory Data 24H LABS Laboratory Tests 2 11/10/18 05:42: Nucleated Red Blood Cells % (auto) 0.0, Anion Gap 4L, Glomerular Filtration Rate > 60.0, Blood Urea Nitrogen 12, Creatinine 0.75, Sodium Level 140, Potassium Level 4.0, Chloride Level 102, Carbon Dioxide Level 34H, Calcium Level 8.6L CBC/BMP Laboratory Tests 11/10/18 05:42 Red Blood Count 4.05 L, Mean Corpuscular Volume 95.6, Mean Corpuscular Hemoglobin 30.6, Mean Corpuscular Hemoglobin Concent 32.0, Red Cell Distribution Width 13.8, Calcium Level 8.6 L Microbiology Microbiology 11/02/18 Blood Culture - Final, Complete NO GROWTH AFTER 5 DAYS 11/02/18 Blood Culture - Final, Complete NO GROWTH AFTER 5 DAYS 11/02/18 MRSA Screen - Final, Complete MARCOS MOBLEY MD Nov 10, 2018 20:09
[2018-11-10] MEDS: ATORVASTATIN 20 MG TAB GT SCH (20:39)
[2018-11-10 22:00] VITALS: BP 96/63
[2018-11-11] MEDS: oxyCODONE 5MG TAB GT PRN ×6 (01:05→22:11)
[2018-11-11] MEDS: LEVOTHYROXINE 100MCG TABLET (0.1MG) GT SCH (05:39)
[2018-11-11 06:00] VITALS: BP 95/64
[2018-11-11 06:30] LABS: HEMATOCRIT 37.6 % (42.0-52.0); HEMOGLOBIN 12.1 g/dl (13.5-17.5); MEAN CORPUSCULAR HEMOGLOBIN 30.6 pg (27.0-33.0); MEAN CORPUSCULAR HGB CONC 32.2 g/dl (32.0-36.5); MEAN CORPUSCULAR VOLUME 94.9 fl (80.0-96.0); PLATELET COUNT, AUTOMATED 210 10^3/uL (150-450); RED BLOOD COUNT 3.96 10^6/uL (4.30-6.10); WHITE BLOOD COUNT 3.6 10^3/uL (4.0-10.0)
[2018-11-11 06:49] LABS: BLOOD UREA NITROGEN 13 MG/DL (7-18); CALCIUM LEVEL 8.8 MG/DL (8.8-10.2); CARBON DIOXIDE LEVEL 32 MEQ/L (21-32); CHLORIDE LEVEL 103 MEQ/L (98-107); CREATININE FOR GFR 0.69 MG/DL (0.70-1.30); GLOMERULAR FILTRATION RATE > 60.0 (>49); GLUCOSE, FASTING 83 MG/DL (70-100); POTASSIUM SERUM 3.9 MEQ/L (3.5-5.1); SODIUM LEVEL 140 MEQ/L (136-145)
[2018-11-11 09:00] VITALS: O2SAT 94
[2018-11-11] MEDS: METOPROLOL TART 25 MG TABLET FT SCH ×2 (09:00→22:10)
[2018-11-11] MEDS: APIXABAN 5 MG TAB (ELIQUIS) FT SCH ×2 (09:55→22:10)
[2018-11-11] MEDS: ESCITALOPRAM OXALATE 10 MG TAB (LEXAPRO) FT SCH (09:55)
[2018-11-11] MEDS: CETIRIZINE (ZyrTEC) 5 MG/5 ML UDC DYE FREE FT SCH (09:55)
[2018-11-11 14:00] VITALS: BP 95/62
--- NOTE | 2018-11-11 16:04 | IPNPDOC ---
Date Seen The patient was seen on 11/11/18. Progress Note SUBJECTIVE: Patient denies any complaints Still waiting for transfers. New script for O2 provided. No acute events reported overnight. OBJECTIVE PHYSICAL EXAMINATION: VITAL SIGNS: Please see below. General: No acute distress, Alert Eyes: Normal sclera, EOMI, ABHAY HENT: Atraumatic, neck supple, moist mucous membranes Cardiovascular: Normal rate, normal rhythm. Pulmonary: Clear to auscultation b/l, no wheezing GI: Soft, nontender, G tube surrounding area clean and dry. Skin: Warm and dry Neuro: CN grossly intact. No focal deficits. Strengths equal b/l. Psych: oriented x 3 LABORATORY DATA, IMAGING STUDIES, MICROBIOLOGY: Please see below. ASSESSMENT AND PLAN: 1. Recurrent Aspiration PNA - s/p 7 days of zosyn treatment. - clinically improved. 2. Dysphagia - G tubed placed on this admission. - c/w tube feeding as scheduled. 3. Tonsillar ca - dx 2000 s/p chemo and radiation. 4. COPD - not in exacerbation. nebs PRN. 5. Hypothyroidism - c/w synthroid 6. OA/chronic joint pain - c/w home pain regimen 7. Recent PE - c/w Eliquis VS, I&O, 24H, Fishbone Vital Signs/I&O Vital Signs Date Time Temp Pulse Resp B/P (MAP) Pulse Ox O2 Delivery O2 Flow Rate FiO2 11/11/18 15:35 16 11/11/18 14:00 97.5 60 95/62 (73) 94 0.5 11/10/18 09:00 Nasal Cannula I&O- Last 24 Hours up to 6 AM 11/11/18 06:00 Intake Total 1470 ml Output Total 1375 ml Balance 95 ml Laboratory Data 24H LABS Laboratory Tests 2 11/11/18 05:48: Nucleated Red Blood Cells % (auto) 0.0, Anion Gap 5L, Glomerular Filtration Rate > 60.0, Blood Urea Nitrogen 13, Creatinine 0.69L, Sodium Level 140, Potassium Level 3.9, Chloride Level 103, Carbon Dioxide Level 32, Calcium Level 8.8 CBC/BMP Laboratory Tests 11/11/18 05:48 Red Blood Count 3.96 L, Mean Corpuscular Volume 94.9, Mean Corpuscular Hemoglobin 30.6, Mean Corpuscular Hemoglobin Concent 32.2, Red Cell Distribution Width 13.9, Calcium Level 8.8 Microbiology Microbiology 11/02/18 Blood Culture - Final, Complete NO GROWTH AFTER 5 DAYS 11/02/18 Blood Culture - Final, Complete NO GROWTH AFTER 5 DAYS 11/02/18 MRSA Screen - Final, Complete MARCOS MOBLEY MD Nov 11, 2018 16:04
[2018-11-11 22:00] VITALS: BP 121/71
[2018-11-11] MEDS: ATORVASTATIN 20 MG TAB GT SCH (22:10)
[2018-11-12] MEDS: oxyCODONE 5MG TAB GT PRN ×4 (02:14→15:04)
[2018-11-12 06:00] VITALS: BP 99/53
[2018-11-12 06:08] LABS: HEMOGLOBIN 11.9 g/dl (13.5-17.5); MEAN CORPUSCULAR HEMOGLOBIN 31.8 pg (27.0-33.0); MEAN CORPUSCULAR HGB CONC 32.2 g/dl (32.0-36.5); MEAN CORPUSCULAR VOLUME 98.9 fl (80.0-96.0); PLATELET COUNT, AUTOMATED 193 10^3/uL (150-450); RED BLOOD COUNT 3.74 10^6/uL (4.30-6.10); WHITE BLOOD COUNT 3.7 10^3/uL (4.0-10.0)
[2018-11-12 06:27] LABS: BLOOD UREA NITROGEN 13 MG/DL (7-18); CALCIUM LEVEL 8.9 MG/DL (8.8-10.2); CARBON DIOXIDE LEVEL 31 MEQ/L (21-32); CHLORIDE LEVEL 101 MEQ/L (98-107); CREATININE FOR GFR 0.82 MG/DL (0.70-1.30); GLOMERULAR FILTRATION RATE > 60.0 (>49); GLUCOSE, FASTING 119 MG/DL (70-100); SODIUM LEVEL 139 MEQ/L (136-145)
[2018-11-12] MEDS: LEVOTHYROXINE 100MCG TABLET (0.1MG) GT SCH (06:38)
[2018-11-12 09:00] VITALS: BP 107/61; O2SAT 94
[2018-11-12] MEDS: METOPROLOL TART 25 MG TABLET FT SCH (09:00)
[2018-11-12] MEDS: APIXABAN 5 MG TAB (ELIQUIS) FT SCH (09:38)
[2018-11-12] MEDS: CETIRIZINE (ZyrTEC) 5 MG/5 ML UDC DYE FREE FT SCH (09:38)
[2018-11-12] MEDS: ESCITALOPRAM OXALATE 10 MG TAB (LEXAPRO) FT SCH (09:39)
--- NOTE | 2018-11-12 11:00 | IPNPDOC ---
Date Seen The patient was seen on 11/12/18. Progress Note SUBJECTIVE: Patient denies any complaints. Desaturate with ambulation today however. Plan to go home today with son. Script written for O2 with ambulation. OBJECTIVE PHYSICAL EXAMINATION: VITAL SIGNS: Please see below. General: No acute distress, Alert Eyes: Normal sclera, EOMI, ABHAY HENT: Atraumatic, neck supple, moist mucous membranes Cardiovascular: Normal rate, normal rhythm. Pulmonary: Clear to auscultation b/l, no wheezing GI: Soft, nontender, G tube surrounding area clean and dry. Skin: Warm and dry Neuro: CN grossly intact. No focal deficits. Strengths equal b/l. Psych: oriented x 3 LABORATORY DATA, IMAGING STUDIES, MICROBIOLOGY: Please see below. ASSESSMENT AND PLAN: 1. Recurrent Aspiration PNA - s/p 7 days of zosyn treatment. - clinically improved. 2. Dysphagia - G tubed placed on this admission. - c/w tube feeding as scheduled. 3. Tonsillar ca - dx 2000 s/p chemo and radiation. 4. COPD - not in exacerbation. nebs PRN. - O2 with ambulation. 5. Hypothyroidism - c/w synthroid 6. OA/chronic joint pain - c/w home pain regimen 7. Recent PE - c/w Eliquis VS, I&O, 24H, Fishbone Vital Signs/I&O Vital Signs Date Time Temp Pulse Resp B/P (MAP) Pulse Ox O2 Delivery O2 Flow Rate FiO2 11/12/18 10:47 18 11/12/18 09:00 78 107/61 11/12/18 06:00 98.4 93 11/11/18 14:00 0.5 11/11/18 09:00 Room Air I&O- Last 24 Hours up to 6 AM 11/12/18 06:00 Intake Total 2520 ml Output Total 1600 ml Balance 920 ml Laboratory Data 24H LABS Laboratory Tests 2 11/12/18 05:36: Nucleated Red Blood Cells % (auto) 0.0, Anion Gap 7L, Glomerular Filtration Rate > 60.0, Blood Urea Nitrogen 13, Creatinine 0.82, Sodium Level 139, Potassium Level 4.0, Chloride Level 101, Carbon Dioxide Level 31, Calcium Level 8.9 CBC/BMP Laboratory Tests 11/12/18 05:36 Red Blood Count 3.74 L, Mean Corpuscular Volume 98.9 H, Mean Corpuscular Hemoglobin 31.8, Mean Corpuscular Hemoglobin Concent 32.2, Red Cell Distribution Width 13.8, Calcium Level 8.9 Microbiology Microbiology 11/02/18 Blood Culture - Final, Complete NO GROWTH AFTER 5 DAYS 11/02/18 Blood Culture - Final, Complete NO GROWTH AFTER 5 DAYS 11/02/18 MRSA Screen - Final, Complete MARCOS MOBLEY MD Nov 12, 2018 11:00
[2018-11-12 14:00] VITALS: BP 101/62
== END 2018-11-12 16:52 | disposition home health service (06) | DRG 177 ==
LOC: M ED 12:21 → M ED INP 15:34 → M ICU 17:22 → M MSPAV 11-04 19:45
PROVIDERS: ADMIT General Practice; ATTEND General Practice
DX: J69.0 Pneumonitis due to inhalation of food and vomit (principal); I26.99 Other pulmonary embolism without acute cor pulmonale; N17.9 Acute kidney failure, unspecified; Z79.01 Long term (current) use of anticoagulants; J44.9 Chronic obstructive pulmonary disease, unspecified; R13.10 Dysphagia, unspecified; Z93.1 Gastrostomy status; Z85.818 Personal history of malignant neoplasm of other sites of lip, oral cavity, and pharynx; E03.9 Hypothyroidism, unspecified; D64.9 Anemia, unspecified; M19.90 Unspecified osteoarthritis, unspecified site; M54.2 Cervicalgia; F41.9 Anxiety disorder, unspecified; Z66 Do not resuscitate; Z79.899 Other long term (current) drug therapy; Z91.040 Latex allergy status; E87.5 Hyperkalemia

== ENCOUNTER 2018-11-17 08:40 | Emergency (ER) | payer MEDICARE, MEDICAID ==
[~2018-11-17] VITALS: Ht 167.6 cm; Wt 67.1 kg
[2018-11-17 09:23] LABS: BASO # 0.1 10^3/uL (0.0-0.2); BASO % 1.1 % (0.0-1.0); EOS # 0.2 10^3/uL (0.0-0.50); EOS % 3.7 % (0.0-3.0); HEMATOCRIT 39.8 % (42.0-52.0); HEMOGLOBIN 12.6 g/dl (13.5-17.5); LYMPH # 0.6 10^3/uL (1.5-4.5); LYMPH % 13.3 % (24.0-44.0); MEAN CORPUSCULAR HEMOGLOBIN 32.2 pg (27.0-33.0); MEAN CORPUSCULAR HGB CONC 31.7 g/dl (32.0-36.5); MEAN CORPUSCULAR VOLUME 101.8 fl (80.0-96.0); MONO # 0.6 10^3/uL (0.0-0.8); MONO % 13.3 % (0.0-5.0); NEUTROPHILS % 68.4 % (36.0-66.0); PLATELET COUNT, AUTOMATED 155 10^3/uL (150-450); RED BLOOD COUNT 3.91 10^6/uL (4.30-6.10); WHITE BLOOD COUNT 4.4 10^3/uL (4.0-10.0)
[2018-11-17 09:34] LABS: INR 1.14; PARTIAL THROMBOPLASTIN TIME 31.6 SECONDS (25.0-38.4); PROTHROMBIN TIME 14.3 SECONDS (11.8-14.0)
[2018-11-17 09:55] LABS: ALBUMIN 2.8 GM/DL (3.2-5.2); ALT/SGPT 33 U/L (12-78); BILIRUBIN,DIRECT 0.1 MG/DL (0.0-0.2); BILIRUBIN,TOTAL 0.5 MG/DL (0.2-1.0); BLOOD UREA NITROGEN 12 MG/DL (7-18); CALCIUM LEVEL 9.2 MG/DL (8.8-10.2); CARBON DIOXIDE LEVEL 37 MEQ/L (21-32); CHLORIDE LEVEL 99 MEQ/L (98-107); CK-MB VALUE MASS < 1.0 NG/ML (<3.6); CPK CREATINE PHOSPHOKINASE 81 U/L (39-308); CREATININE FOR GFR 0.91 MG/DL (0.70-1.30); GLOMERULAR FILTRATION RATE > 60.0 (>49); GLUCOSE, FASTING 95 MG/DL (70-100); MB/CK RELATIVE INDEX 1.23 (< OR =4); NT-PRO BNP 239 PG/ML (<125); POTASSIUM SERUM 4.5 MEQ/L (3.5-5.1); SODIUM LEVEL 140 MEQ/L (136-145); THYROID STIMULATING HORMONE 0.623 uIU/ML (0.358-3.740); TOTAL PROTEIN 6.3 GM/DL (6.4-8.2); TROPONIN I < 0.02 NG/ML (< 0.10)
[2018-11-17 10:17] VITALS: O2SAT 96
[2018-11-17] MEDS ORDERED: CEPHALEXIN 500 MG CAP PO ONE (10:45)
[2018-11-17] MEDS ORDERED: CEPHALEXIN SUSP POWDER 250MG/5ML BTL 100ML PO ONE (10:45)
[2018-11-17] MEDS ORDERED: CEPH250REC PO (10:51)
[2018-11-17 11:09] VITALS: BP 96/50
--- NOTE | 2018-11-17 12:38 | REP ---
CHEST X-RAY: Two views. HISTORY: Cough and weakness. Comparison chest x-ray November 06, 2018. FINDINGS: Right hemidiaphragm remains elevated. There is bibasilar plate-like atelectasis increased bilaterally compared to the prior study. There is blunting of the right lateral pleural angle visible today. The heart is not enlarged. EKG electrodes are seen. IMPRESSION: Coarse bibasilar plate-like atelectasis visible today. Elevated right hemidiaphragm and blunted right pleural angle. Electronically Signed by Gunner Camara MD 11/17/2018 01:43 P
[2018-11-18] MEDS ORDERED: CEPH25SS FT (05:57)
--- NOTE | 2018-11-18 07:37 | ECGEPIP ---
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
== END 2018-11-17 12:48 | disposition home or self-care (01) ==
LOC: M ED 08:40
DX: R05 Cough (principal); N39.0 Urinary tract infection, site not specified; J44.9 Chronic obstructive pulmonary disease, unspecified; D64.9 Anemia, unspecified; F41.9 Anxiety disorder, unspecified; E07.9 Disorder of thyroid, unspecified; E78.5 Hyperlipidemia, unspecified; A69.20 Lyme disease, unspecified; Z85.818 Personal history of malignant neoplasm of other sites of lip, oral cavity, and pharynx; Z87.19 Personal history of other diseases of the digestive system; Z86.711 Personal history of pulmonary embolism; Z93.1 Gastrostomy status; Z91.040 Latex allergy status; Z79.899 Other long term (current) drug therapy; Z79.01 Long term (current) use of anticoagulants

== ENCOUNTER 2018-11-18 02:54 | Inpatient (IN) | payer MEDICARE, MEDICAID ==
[2018-11-18] VITALS (8 sets, daily range): BP systolic 52–142; BP diastolic 40–80
[~2018-11-18] VITALS: Ht 167.6 cm; Wt 70.5 kg
[~2018-11-18 02:54] MED LIST changes: +CEPH250REC PO
[2018-11-18 03:21] LABS: BASO % 0.8 % (0.0-1.0); EOS # 0.1 10^3/uL (0.0-0.50); HEMATOCRIT 38.7 % (42.0-52.0); HEMOGLOBIN 12.3 g/dl (13.5-17.5); LYMPH # 0.5 10^3/uL (1.5-4.5); LYMPH % 14.6 % (24.0-44.0); MEAN CORPUSCULAR HGB CONC 31.8 g/dl (32.0-36.5); MEAN CORPUSCULAR VOLUME 100.8 fl (80.0-96.0); MONO # 0.5 10^3/uL (0.0-0.8); MONO % 12.7 % (0.0-5.0); NEUTROPHILS # 2.5 10^3/uL (1.8-7.7); NEUTROPHILS % 67.8 % (36.0-66.0); PLATELET COUNT, AUTOMATED 145 10^3/uL (150-450); RED BLOOD COUNT 3.84 10^6/uL (4.30-6.10); WHITE BLOOD COUNT 3.6 10^3/uL (4.0-10.0)
[2018-11-18 03:40] LABS: BLOOD UREA NITROGEN 12 MG/DL (7-18); CALCIUM LEVEL 8.8 MG/DL (8.8-10.2); CARBON DIOXIDE LEVEL 36 MEQ/L (21-32); CHLORIDE LEVEL 98 MEQ/L (98-107); CREATININE FOR GFR 0.84 MG/DL (0.70-1.30); GLOMERULAR FILTRATION RATE > 60.0 (>49); GLUCOSE, FASTING 103 MG/DL (70-100); POTASSIUM SERUM 3.6 MEQ/L (3.5-5.1); SODIUM LEVEL 140 MEQ/L (136-145)
[2018-11-18] MEDS ORDERED: NS 1,000 ML IV ONE (04:00)
[2018-11-18] MEDS ORDERED: IPRATROPIUM 0.5MG/ALBUTEROL 2.5MG INH SOL UD 3ML (DUONEB)(J7620) NEB ONE (05:30)
[2018-11-18] MEDS ORDERED: CEPH25SS FT (05:57)
[2018-11-18] MEDS ORDERED: IPRATROPIUM 0.5MG/ALBUTEROL 2.5MG INH SOL UD 3ML (DUONEB)(J7620) NEB PRN (06:00)
[2018-11-18] MEDS ORDERED: NS 1,000 ML IV SCH (06:00)
--- NOTE | 2018-11-18 06:09 | HPEPDOC ---
General Date of Admission Nov 18, 2018 at 05:56 Date of Service: Nov 18, 2018 Chief Complaint The patient is a 67-year-old male admitted with a reason for visit of Orthostatic Hypotension. 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 The patient states that he was sitting at the edge of the bed, when he stood up to go to the bathroom, he felt lightheaded and had a syncopal event. He denied any prodromal symptoms of chest pain, palpitations, abdominal pain, or any nausea/vomiting/diarrhea. He also denied any complaints of fevers, chills, worsening cough or shortness of breath, dysuria, or any other acute complaints. In the ER, the patient's vital signs were noted to be orthostatic positive. This did improve with some IV fluid hydration, but the patient still continued to be orthostatic and endorsed complaints of lightheadedness. Consequently, the patient will be admitted under the hospitalist service for further evaluation and management. Home Medications Scheduled Apixaban (Eliquis) 5 Mg Tablet, 5 MG FT BID, (Reported) Atorvastatin Calcium (Atorvastatin Calcium) 40 Mg Tablet, 40 MG FT QHS, (Reported) Cephalexin Monohydrate (Cephalexin) 250 Mg/5 Ml Susp.recon, 500 MG FT BID, (Reported) Escitalopram Oxalate (Escitalopram Oxalate) 10 Mg Tab, 10 MG FT DAILY, (Report ed) Levothyroxine Sodium (Levothyroxine Sodium) 100 Mcg Tab, 100 MCG FT DAILY, (Reported) Metoprolol Tartrate (Metoprolol Tartrate) 25 Mg Tablet, 25 MG FT BID, (Reported) Scheduled PRN Oxycodone Hcl (Oxycodone HCl) 15 Mg Tablet, 15 MG FT Q4H PRN for PAIN, (Reported) Allergies Coded Allergies: latex (Verified Allergy, Intermediate, hives, 11/02/18) Past Medical History Medical History As noted in HPI. Surgical History Cystoscopy Trans-bronchial biopsy for chronic left lower lobe infiltrate Right hand surgery 2006 G-tube replacement 2017; has been replaced. 3-4 times. Most recent which was one month ago. At [facility] Hernia repair Social History Lives with his son. Denies the use of alcohol or illicit drugs; patient reports that he quit smoking 17 years ago but was a smoker of 35 years at less than 0.5 PPD Review of Systems Other systems 10 point review of systems negative unless otherwise specified in HPI. Physical Examination General Exam: Positive: Alert, Cooperative, No Acute Distress ENT Exam: Positive: Atraumatic Chest Exam: Positive: Diminished Heart Exam: Positive: Rate Normal, Normal S1, Normal S2 Abdomen Exam: Positive: Soft, Other (+G-Tube); Negative: Tenderness Extremity Exam: Negative: Tenderness, Swelling Psych Exam: Positive: Oriented x 3 Vital Signs Vital Signs Date Time Temp Pulse Resp B/P (MAP) Pulse Ox O2 Delivery O2 Flow Rate FiO2 11/18/18 05:42 94 11/18/18 05:01 14 95 Nasal Cannula 2.0 11/18/18 05:00 137/77 (97) 11/18/18 03:32 97.2 Laboratory Data Labs 24H Laboratory Tests 2 11/18/18 03:14: Immature Granulocyte % (Auto) 1.1, White Blood Count 3.6L, Red Blood Count 3.84L, Hemoglobin 12.3L, Hematocrit 38.7L, Mean Corpuscular Volume 100.8H, Mean Corpuscular Hemoglobin 32.0, Mean Corpuscular Hemoglobin Concent 31.8L, Red Cell Distribution Width 13.5, Platelet Count 145L, Neutrophils (%) (Auto) 67.8H, Lymphocytes (%) (Auto) 14.6L, Monocytes (%) (Auto) 12.7H, Eosinophils (%) (Auto) 3.0, Basophils (%) (Auto) 0.8, Neutrophils # (Auto) 2.5, Lymphocytes # (Auto) 0.5L, Monocytes # (Auto) 0.5, Eosinophils # (Auto) 0.1, Basophils # (Auto) 0.0, Nucleated Red Blood Cells % (auto) 0.0, Anion Gap 6L, Glomerular Filtration Rate > 60.0, Blood Urea Nitrogen 12, Creatinine 0.84, Sodium Level 140, Potassium Level 3.6, Chloride Level 98, Carbon Dioxide Level 36H, Calcium Level 8.8 CBC/BMP Laboratory Tests 11/18/18 03:14 Red Blood Count 3.84 L, Mean Corpuscular Volume 100.8 H, Mean Corpuscular Hemoglobin 32.0, Mean Corpuscular Hemoglobin Concent 31.8 L, Red Cell Distr ibution Width 13.5, Neutrophils (%) (Auto) 67.8 H, Lymphocytes (%) (Auto) 14.6 L, Monocytes (%) (Auto) 12.7 H, Eosinophils (%) (Auto) 3.0, Basophils (%) (Auto) 0.8, Neutrophils # (Auto) 2.5, Lymphocytes # (Auto) 0.5 L, Monocytes # (Auto) 0.5, Eosinophils # (Auto) 0.1, Basophils # (Auto) 0.0, Calcium Level 8.8 Plan / VTE VTE Prophylaxis Ordered?: Yes Plan Plan Orthostatic Hypotension, Syncopal Episode Likely 2/2 volume depletion, as this did improve with IV fluid hydration in the ER Gentle IVF Hydration ordered No overt signs of infection as the patient denies any worsening of his baseline respiratory status, and he denies any urinary symptoms Blood, Urine Cultures pending--Will hold off on any Abx therapy for now 2D ECHO ordered to r/o other etiology--previous ECHO from 07/2017 did suggest moderately elevated right ventricular pressure with moderate tricuspid regurgitation. We will evaluate for possible worsening of this. 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
[2018-11-18] MEDS: oxyCODONE 5MG TAB GT PRN ×4 (07:19→20:03)
[2018-11-18] MEDS: LEVOTHYROXINE 100MCG TABLET (0.1MG) GT SCH (07:31)
--- NOTE | 2018-11-18 07:50 | ECGEPIP ---
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
[2018-11-18] MEDS: IPRATROPIUM 0.5MG/ALBUTEROL 2.5MG INH SOL UD 3ML (DUONEB)(J7620) NEB SCH ×3 (08:00→20:05)
[2018-11-18] MEDS: ESCITALOPRAM OXALATE 10 MG TAB (LEXAPRO) FT SCH (10:18)
[2018-11-18] MEDS: APIXABAN 5 MG TAB (ELIQUIS) FT SCH ×2 (10:18→20:03)
[2018-11-18] MEDS: ATORVASTATIN 20 MG TAB GT SCH (20:03)
--- NOTE | 2018-11-18 21:01 | ECHO ---
DATE OF PROCEDURE: 11/18/2018 REFERRING PHYSICIAN: Dr. Elia Conn INDICATION: Syncope. Height 168 cm, weight 68 kg. DIMENSIONS: IVS: 1.0 LV: 4.5 LVPW: 1.1 LA: 3.3 Aorta: 3.9 IVC: 1.6 Mitral E wave velocity: 60 A wave: 71 E prime septal: 8.5 E prime lateral: 9.4 FINDINGS: Study is of fair technical quality with rather difficult visualization. The patient is in sinus rhythm. Left ventricle is of normal size and systolic function with estimated ejection fraction (EF) around 65%. This is based on limited views, and I certainly cannot rule out subtle wall motion abnormalities. Right ventricle appears normal. Both atria appear grossly normal. Aortic valve is mildly sclerotic but has normal mobility. Mitral and tricuspid valves are normal. Pulmonic valve was not well seen. No pericardial effusion is noted. Inferior vena cava was poorly seen but has normal diameter. Aortic root is normal. Aortic arch and abdominal aorta were not well seen. Doppler interrogation of aortic valve reveals no stenosis or insufficiency. Same applies for mitral valve. There is trace tricuspid insufficiency. Based on poor quality TR jet, there is normal pulmonary artery pressure. Mitral inflow pattern and tissue Doppler imaging of mitral annulus revealed grade 1 diastolic dysfunction. CONCLUSIONS: 1. Study is of limited technical quality. 2. Normal LV size with grossly preserved LV systolic function and grade 1 diastolic dysfunction. 3. No significant valvular disease. 4. Normal central venous pressure and probably normal pulmonary artery pressure. COMMENT: Subacute bacterial endocarditis (SBE) prophylaxis is not recommended. The study does not provide obvious explanation for syncopal event.
[2018-11-19] VITALS (9 sets, daily range): BP systolic 58–155; BP diastolic 40–83
[2018-11-19] MEDS: oxyCODONE 5MG TAB GT PRN ×6 (00:02→20:13)
[2018-11-19] MEDS: IPRATROPIUM 0.5MG/ALBUTEROL 2.5MG INH SOL UD 3ML (DUONEB)(J7620) NEB SCH ×4 (02:17→20:59)
[2018-11-19] MEDS: LEVOTHYROXINE 100MCG TABLET (0.1MG) GT SCH (05:52)
[2018-11-19 05:59] LABS: HEMATOCRIT 35.1 % (42.0-52.0); HEMOGLOBIN 11.2 g/dl (13.5-17.5); MEAN CORPUSCULAR HEMOGLOBIN 30.5 pg (27.0-33.0); MEAN CORPUSCULAR HGB CONC 31.9 g/dl (32.0-36.5); MEAN CORPUSCULAR VOLUME 95.6 fl (80.0-96.0); PLATELET COUNT, AUTOMATED 136 10^3/uL (150-450); RED BLOOD COUNT 3.67 10^6/uL (4.30-6.10); WHITE BLOOD COUNT 4.7 10^3/uL (4.0-10.0)
[2018-11-19 06:24] LABS: ALBUMIN 2.6 GM/DL (3.2-5.2); ALT/SGPT 25 U/L (12-78); BILIRUBIN,TOTAL 0.3 MG/DL (0.2-1.0); BLOOD UREA NITROGEN 7 MG/DL (7-18); CALCIUM LEVEL 8.3 MG/DL (8.8-10.2); CARBON DIOXIDE LEVEL 38 MEQ/L (21-32); CHLORIDE LEVEL 102 MEQ/L (98-107); CREATININE FOR GFR 0.66 MG/DL (0.70-1.30); GLOMERULAR FILTRATION RATE > 60.0 (>49); GLUCOSE, FASTING 161 MG/DL (70-100); MAGNESIUM LEVEL 2.1 MG/DL (1.8-2.4); POTASSIUM SERUM 3.1 MEQ/L (3.5-5.1); SODIUM LEVEL 140 MEQ/L (136-145); TOTAL PROTEIN 5.9 GM/DL (6.4-8.2)
[2018-11-19] MEDS ORDERED: POTASSIUM CHLORIDE 10 MEQ SR TABLET PO ONE (07:00)
[2018-11-19] MEDS ORDERED: POTASSIUM CHLORIDE 10% LIQ 20 MEQ/15 ML UDC PO ONE (07:45)
[2018-11-19 08:05] LABS: THYROID STIMULATING HORMONE 0.298 uIU/ML (0.358-3.740)
[2018-11-19] MEDS: APIXABAN 5 MG TAB (ELIQUIS) FT SCH ×2 (08:06→20:12)
[2018-11-19] MEDS: ESCITALOPRAM OXALATE 10 MG TAB (LEXAPRO) FT SCH (08:07)
--- NOTE | 2018-11-19 13:08 | IPNPDOC ---
Text Note Date of Service The patient was seen on 11/19/18. NOTE Subjective: Patient seen and examined at bedside. Denies any symptoms while lying down. 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 In the ER, the patient's vital signs were noted to be orthostatic positive. This did improve with some IV fluid hydration, but the patient still continued to be orthostatic and endorsed complaints of lightheadedness. 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 Has had trans-bronchial biopsy completed in the past #Hypothyroidism Levothyroxine - check thyroid profile - TSH low #Anxiety - Escitalopram #Osteoarthritis / Chronic neck pain - Continue oxycodone as needed #DVT prophylaxis On Eliquis VS,Fishbone, I+O VS, Fishbone, I+O Laboratory Tests 11/19/18 05:34 Red Blood Count 3.67 L, Mean Corpuscular Volume 95.6, Mean Corpuscular Hemoglobin 30.5, Mean Corpuscular Hemoglobin Concent 31.9 L, Red Cell Distribution Width 13.4, Calcium Level 8.3 L, Aspartate Amino Transf (AST/SGOT) 22, Alanine Aminotransferase (ALT/SGPT) 25, Alkaline Phosphatase 75, Total Bilirubin 0.3, Total Protein 5.9 L, Albumin 2.6 L Vital Signs Date Time Temp Pulse Resp B/P (MAP) Pulse Ox O2 Delivery O2 Flow Rate FiO2 11/19/18 12:01 20 2.0 11/19/18 12:00 98.2 90 155/82 (106) 96 11/18/18 09:30 Nasal Cannula I&O- Last 24 Hours up to 6 AM 11/19/18 06:00 Intake Total 3140 ml Output Total 1875 ml Balance 1265 ml EDUAR SARABIA MD Nov 19, 2018 13:08
--- NOTE | 2018-11-19 15:03 | CR.PDOC ---
General Date of Consultation: Nov 17, 2018 Referring Provider: EDUAR SARABIA MD Primary Care Physician: Jr Ochoa Collins Attending Physician: Ruel Carney MD Consultation REASON FOR CONSULTATION/CHIEF COMPLAINT: 67 year old with tonsillar cancer, s/p surgery, chemo. RT. Multiple admissions for aspiration pneumonia, syncope. HISTORY OF PRESENT ILLNESS: as above; discussion regarding his wishes for his care moving forward ALLERGIES: Please see below. HOME MEDICATIONS: Please see below. [facility] saw Mr. Araiza at his bedside. He stated he does not want to come to the hospital any more and would much prefer to be carec fpr at home. He lives with his son. Initally he was not certain he was ready to consider hospice, however, after a discussion about his current medical state and his desire to stop coming to the hospital he was eilling to consider this and discuss further with his son. I [id number] Dr. Sarabia and informed him of this and CC contacted train planner. Vital Signs/I&O Vital Signs Date Time Temp Pulse Resp B/P (MAP) Pulse Ox O2 Delivery O2 Flow Rate FiO2 11/19/18 13:00 66 110/60 (77) 77 70/45 (53) 80 58/40 (46) 11/19/18 12:31 20 2.0 11/19/18 12:00 98.2 96 11/18/18 09:30 Nasal Cannula I&O- Last 24 Hours up to 6 AM 11/19/18 06:00 Intake Total 3140 ml Output Total 1875 ml Balance 1265 ml Laboratory Data Labs 24H Laboratory Tests 2 11/19/18 05:34: Nucleated Red Blood Cells % (auto) 0.0, Anion Gap 0L, Glomerular Filtration Rate > 60.0, Blood Urea Nitrogen 7, Creatinine 0.66L, Sodium Level 140, Potassium Level 3.1L, Chloride Level 102, Carbon Dioxide Level 38H, Calcium Level 8.3L, Aspartate Amino Transf (AST/SGOT) 22, Alanine Aminotransferase (ALT/SGPT) 25, Alkaline Phosphatase 75, Total Bilirubin 0.3, Total Protein 5.9L, Albumin 2.6L, Magnesium Level 2.1, Albumin/Globulin Ratio 0.79L, Thyroid Stimulating Hormone (TSH) 0.298L CBC/BMP Laboratory Tests 11/19/18 05:34 Red Blood Count 3.67 L, Mean Corpuscular Volume 95.6, Mean Corpuscular Hemoglobin 30.5, Mean Corpuscular Hemoglobin Concent 31.9 L, Red Cell Distribution Width 13.4, Calcium Level 8.3 L, Aspartate Amino Transf (AST/SGOT) 22, Alanine Aminotransferase (ALT/SGPT) 25, Alkaline Phosphatase 75, Total Bilirubin 0.3, Total Protein 5.9 L, Albumin 2.6 L Allergies Coded Allergies: latex (Verified Allergy, Intermediate, hives, 11/02/18) Home Medications Scheduled Apixaban (Eliquis) 5 Mg Tablet, 5 MG FT BID, (Reported) Atorvastatin Calcium (Atorvastatin Calcium) 40 Mg Tablet, 40 MG FT QHS, (Reported) Cephalexin Monohydrate (Cephalexin) 250 Mg/5 Ml Susp.recon, 500 MG FT BID, (Reported) Escitalopram Oxalate (Escitalopram Oxalate) 10 Mg Tab, 10 MG FT DAILY, (Reported) Levothyroxine Sodium (Levothyroxine Sodium) 100 Mcg Tab, 100 MCG FT DAILY, (Reported) Metoprolol Tartrate (Metoprolol Tartrate) 25 Mg Tablet, 25 MG FT BID, (Reported) Scheduled PRN Oxycodone Hcl (Oxycodone HCl) 15 Mg Tablet, 15 MG FT Q4H PRN for PAIN, (Reported ) Ginger PENA LINOTYPER Nov 19, 2018 15:03
--- NOTE | 2018-11-19 15:06 | REP ---
CT CHEST WITHOUT CONTRAST: HISTORY: Orthostatic. Shortness of breath. Comparison chest CT study November 02, 2018. There are multiple prior chest CTs dating back to September 16, 2016. October 08, [address] is also reviewed. CT FINDINGS: Preliminary digital rescue instructor radiograph shows a feeding tube in the left upper quadrant. Right hemidiaphragm is elevated. There is no left pleural effusion visible. There are extensive areas of consolidation and collapse in the left lower lobe and to a lesser extent right lower lobe and right middle lobe. There are air bronchograms in these regions. 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 I note that virtually all of the patient's recent chest CTs have shown atelectasis in the left lower lobe and hilar or infrahilar mass lesion must be suspected. The left lower lobe collapse is unchanged from most recent prior study of November 02, 2018. It is more extensive than on October 08, 2018. The right lower lobe atelectasis is also more extensive than on Oct 08 2018. There are more air bronchograms and there is more atelectasis in the right lower lobe today than was present on November 02, 2018 as well. The right middle lobe disease may be slightly improved today compared to the most recent prior study. There is a small quantity of right pleural fluid extending into the major fissure at the right base. IMPRESSION: Extensive essentially lobar atelectasis in the left lower lobe unchanged from most recent prior study. There are significant atelectatic changes with air bronchograms and consolidation in the right lower lobe and right middle lobe. Some improvement in the right middle lobe is seen but there is more consolidation and more numerous air bronchograms in the right lower lobe today than was present on October 08, 2018. Central bronchial obstructive lesion suspected on the left. Electronically Signed by Gunner Camara MD 11/19/2018 08:17 P
[2018-11-19] MEDS ORDERED: SLF 3 ML SYR IV PRN (16:15)
[2018-11-19] MEDS: ATORVASTATIN 20 MG TAB GT SCH (20:12)
[2018-11-19] MEDS: SLF 3 ML SYR IV SCH (20:13)
[2018-11-20] MEDS: oxyCODONE 5MG TAB GT PRN ×6 (00:38→21:53)
[2018-11-20] MEDS: IPRATROPIUM 0.5MG/ALBUTEROL 2.5MG INH SOL UD 3ML (DUONEB)(J7620) NEB SCH ×4 (01:42→20:00)
[2018-11-20] MEDS: LEVOTHYROXINE 100MCG TABLET (0.1MG) GT SCH (05:08)
[2018-11-20] MEDS: SLF 3 ML SYR IV SCH ×3 (05:08→20:36)
[2018-11-20 06:56] LABS: THYROID STIMULATING HORMONE 1.23 uIU/ML (0.358-3.740)
[2018-11-20 08:00] VITALS: BP 141/85
--- NOTE | 2018-11-20 08:09 | IPNPDOC ---
Text Note Date of Service The patient was seen on 11/20/18. NOTE Subjective: Patient seen and examined at bedside. No new medical complaints, no acute overnight events reported. Patient was seen by palliative care yesterday, and states he is considering hospice. 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 In the ER, the patient's vital signs were noted to be orthostatic positive. This did improve with some IV fluid hydration, but the patient still continued to be orthostatic and endorsed complaints of lightheadedness. 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 Has had trans-bronchial biopsy completed in the past #Hypothyroidism Levothyroxine - check thyroid profile - TSH low #Anxiety - Escitalopram #Osteoarthritis / Chronic neck pain - Continue oxycodone as needed #DVT prophylaxis On Eliquis Dispo: patient considering hospice, pending palliative follow up, patient prefers palliative on board on discharge VS,Fishbone, I+O VS, Fishbone, I+O Vital Signs Date Time Temp Pulse Resp B/P (MAP) Pulse Ox O2 Delivery O2 Flow Rate FiO2 11/20/18 05:39 18 11/20/18 04:00 97.4 77 96 2.0 11/19/18 23:59 127/68 (87) 11/18/18 09:30 Nasal Cannula I&O- Last 24 Hours up to 6 AM 11/20/18 06:00 Intake Total 1450 ml Output Total 1700 ml Balance -250 ml EDUAR SARABIA MD Nov 20, 2018 08:09
[2018-11-20 09:00] VITALS: BP_SYST 105; BP_SYST 135; BP_SYST 93; BP_DIAS 55; BP_DIAS 60; BP_DIAS 78
[2018-11-20] MEDS: APIXABAN 5 MG TAB (ELIQUIS) FT SCH ×2 (09:35→20:36)
[2018-11-20] MEDS: ESCITALOPRAM OXALATE 10 MG TAB (LEXAPRO) FT SCH (09:35)
[2018-11-20 12:00] VITALS: BP 133/69
[2018-11-20 16:00] VITALS: BP_SYST 100; BP_SYST 134; BP_SYST 78; BP_SYST 84; BP_DIAS 48; BP_DIAS 55; BP_DIAS 56; BP_DIAS 69
[2018-11-20 20:00] VITALS: BP 108/67
[2018-11-20] MEDS: ATORVASTATIN 20 MG TAB GT SCH (20:36)
[2018-11-20 23:59] VITALS: BP 117/68
[2018-11-21] VITALS (7 sets, daily range): BP systolic 86–173; BP diastolic 55–98
[2018-11-21] MEDS: IPRATROPIUM 0.5MG/ALBUTEROL 2.5MG INH SOL UD 3ML (DUONEB)(J7620) NEB SCH ×4 (02:00→21:23)
[2018-11-21] MEDS: oxyCODONE 5MG TAB GT PRN ×5 (02:16→20:00)
[2018-11-21 05:55] LABS: HEMATOCRIT 38.8 % (42.0-52.0); HEMOGLOBIN 12.5 g/dl (13.5-17.5); MEAN CORPUSCULAR HEMOGLOBIN 31.7 pg (27.0-33.0); MEAN CORPUSCULAR HGB CONC 32.2 g/dl (32.0-36.5); MEAN CORPUSCULAR VOLUME 98.5 fl (80.0-96.0); PLATELET COUNT, AUTOMATED 136 10^3/uL (150-450); RED BLOOD COUNT 3.94 10^6/uL (4.30-6.10); WHITE BLOOD COUNT 4.1 10^3/uL (4.0-10.0)
[2018-11-21] MEDS: LEVOTHYROXINE 100MCG TABLET (0.1MG) GT SCH (05:55)
[2018-11-21] MEDS: SLF 3 ML SYR IV SCH ×3 (05:56→19:50)
[2018-11-21 06:19] LABS: BLOOD UREA NITROGEN 8 MG/DL (7-18); CALCIUM LEVEL 8.5 MG/DL (8.8-10.2); CARBON DIOXIDE LEVEL 37 MEQ/L (21-32); CHLORIDE LEVEL 100 MEQ/L (98-107); CREATININE FOR GFR 0.63 MG/DL (0.70-1.30); GLOMERULAR FILTRATION RATE > 60.0 (>49); GLUCOSE, FASTING 122 MG/DL (70-100); SODIUM LEVEL 140 MEQ/L (136-145)
--- NOTE | 2018-11-21 08:31 | IPNPDOC ---
Text Note Date of Service The patient was seen on 11/21/18. NOTE Subjective: Patient seen at bedside. No new medical complaints, no acute overnight events reported. Patient states he would like to proceed with home hospice. 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 In the ER, the patient's vital signs were noted to be orthostatic positive. This did improve with some IV fluid hydration, but the patient still continued to be orthostatic and endorsed complaints of lightheadedness. 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 Has had trans-bronchial biopsy completed in the past #Hypothyroidism Levothyroxine - check thyroid profile - TSH low #Anxiety - Escitalopram #Osteoarthritis / Chronic neck pain - Continue oxycodone as needed #DVT prophylaxis On Eliquis Dispo: patient today states he would like to proceed with home hospice, c/s pending; transfer to floor VS,Tara, I+O ABENA, Tara, I+O Laboratory Tests 11/21/18 05:15 Red Blood Count 3.94 L, Mean Corpuscular Volume 98.5 H, Mean Corpuscular Hemoglobin 31.7, Mean Corpuscular Hemoglobin Concent 32.2, Red Cell Distribution Width 13.6, Calcium Level 8.5 L Vital Signs Date Time Temp Pulse Resp B/P (MAP) Pulse Ox O2 Delivery O2 Flow Rate FiO2 11/21/18 07:35 1.0 11/21/18 06:56 18 11/21/18 04:00 98.2 73 139/82 (101) 94 11/18/18 09:30 Nasal Cannula I&O- Last 24 Hours up to 6 AM 11/21/18 06:00 Intake Total 2260 ml Output Total 2600 ml Balance -340 ml EDUAR SARABIA MD Nov 21, 2018 08:31
[2018-11-21] MEDS: ESCITALOPRAM OXALATE 10 MG TAB (LEXAPRO) FT SCH (08:49)
[2018-11-21] MEDS: APIXABAN 5 MG TAB (ELIQUIS) FT SCH ×2 (08:49→20:00)
[2018-11-21] MEDS: NS 1,000 ML IV SCH (16:43)
[2018-11-21] MEDS: ATORVASTATIN 20 MG TAB GT SCH (20:00)
[2018-11-22] MEDS: IPRATROPIUM 0.5MG/ALBUTEROL 2.5MG INH SOL UD 3ML (DUONEB)(J7620) NEB SCH ×4 (01:23→20:21)
[2018-11-22] MEDS: oxyCODONE 5MG TAB GT PRN ×6 (01:50→20:50)
[2018-11-22] MEDS: SLF 3 ML SYR IV SCH ×3 (05:42→20:12)
[2018-11-22] MEDS: LEVOTHYROXINE 100MCG TABLET (0.1MG) GT SCH (05:47)
[2018-11-22] MEDS: NS 1,000 ML IV SCH ×2 (05:51→19:35)
[2018-11-22 06:00] VITALS: BP 133/84
[2018-11-22 06:29] LABS: HEMATOCRIT 37.8 % (42.0-52.0); HEMOGLOBIN 12.1 g/dl (13.5-17.5); MEAN CORPUSCULAR HEMOGLOBIN 31.3 pg (27.0-33.0); MEAN CORPUSCULAR VOLUME 97.9 fl (80.0-96.0); PLATELET COUNT, AUTOMATED 130 10^3/uL (150-450); RED BLOOD COUNT 3.86 10^6/uL (4.30-6.10); WHITE BLOOD COUNT 3.3 10^3/uL (4.0-10.0)
[2018-11-22 06:49] LABS: BLOOD UREA NITROGEN 11 MG/DL (7-18); CALCIUM LEVEL 8.6 MG/DL (8.8-10.2); CARBON DIOXIDE LEVEL 34 MEQ/L (21-32); CHLORIDE LEVEL 101 MEQ/L (98-107); CREATININE FOR GFR 0.58 MG/DL (0.70-1.30); GLOMERULAR FILTRATION RATE > 60.0 (>49); GLUCOSE, FASTING 133 MG/DL (70-100); SODIUM LEVEL 138 MEQ/L (136-145)
[2018-11-22] MEDS: ESCITALOPRAM OXALATE 10 MG TAB (LEXAPRO) FT SCH (08:25)
[2018-11-22] MEDS: APIXABAN 5 MG TAB (ELIQUIS) FT SCH ×2 (08:25→20:11)
[2018-11-22 14:00] VITALS: BP 113/59
--- NOTE | 2018-11-22 18:26 | IPNPDOC ---
Text Note Date of Service The patient was seen on 11/22/18. NOTE Denies any acute complaints. No overnight events reported. Hospice was called to follow up on the status of placement. General: pt is comfortable in bed NAD HEENT: SPIKE neck supple no icterus no JVD Lungs: clear bilat CVS: S1 S2 no murmur Abd: soft, NT, +BS, PEG tube in place Ext: no edema no tenderness no cyanosis Neuro: motor sensory grossly intact Vital Signs Date Time Temp Pulse Resp B/P (MAP) Pulse Ox O2 Delivery O2 Flow Rate FiO2 11/22/18 17:34 16 1.0 11/22/18 16:34 16 1.0 11/22/18 15:15 1.0 11/22/18 14:00 96.8 85 16 113/59 (77) 93 11/22/18 12:25 16 1.0 11/22/18 08:25 16 1.0 11/22/18 06:00 96.7 82 18 133/84 (100) 94 11/22/18 05:47 18 1.0 11/22/18 01:50 16 1.0 11/21/18 22:00 97.2 70 16 146/60 (88) 94 11/21/18 20:00 1.0 11/21/18 20:00 16 1.0 Intake & Output 11/22/18 06:00 Intake Total 840 ml Output Total 1175 ml Balance -335 ml Laboratory Tests 11/22/18 05:58: White Blood Count 3.3L, Red Blood Count 3.86L, Hemoglobin 12.1L, Hematocrit 37.8L, Mean Corpuscular Volume 97.9H, Mean Corpuscular Hemoglobin 31.3, Mean Corpuscular Hemoglobin Concent 32.0, Red Cell Distribution Width 13.7, Platelet Count 130L, Nucleated Red Blood Cells % (auto) 0.0, Blood Urea Nitrogen 11, Creatinine 0.58L, Sodium Level 138, Potassium Level 4.0, Chloride Level 101, Carbon Dioxide Level 34H, Calcium Level 8.6L, Anion Gap 3L, Glomerular Filtration Rate > 60.0, Fasting Glucose 133H Current Medications Medications (Trade) Dose Ordered Sig/Isael Route PRN Reason Start Time Stop Time Status Last Admin Dose Admin Albuterol/ Ipratropium (Duoneb (Ipr 0.5mg/Alb 2.5mg)) 3 ml RQ6H NEB 11/18/18 08:00 11/22/18 13:28 3 ML Apixaban (Eliquis) 5 mg BID FT 11/18/18 09:00 11/22/18 08:25 5 MG Atorvastatin Calcium (Lipitor) 40 mg QHS GT 11/18/18 21:00 11/21/18 20:00 40 MG Escitalopram Oxalate (Lexapro) 10 mg DAILY FT 11/18/18 09:00 11/22/18 08:25 10 MG Levothyroxine Sodium (Synthroid) 100 mcg DAILY@0600 GT 11/18/18 06:00 11/22/18 05:47 100 MCG Oxycodone HCl (Roxicodone, Oxyir) 15 mg Q4H PRN GT PAIN 11/18/18 06:15 11/22/18 16:34 15 MG Sodium Chloride 1,000 ml @ 70 mls/hr [id number] IV 11/21/18 16:00 11/22/18 05:51 70 MLS/HR Sodium Chloride (Saline Lock Flush) 2 ml SLF IV 11/19/18 22:00 11/21/18 13:41 2 ML A/P: 67-year-old male with a PMHx of Tonsillar CA (2010; s/p Chemo and radiation), Esophageal strictures 2/2 radiation (s/p Dilation 2013; s/p G-tube 2016), DLP, COPD, Recent PE (on Eliquis), 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 In the ER, the patient's vital signs were noted to be orthostatic posit vishal. This did improve with some IV fluid hydration, but the patient still continued to be orthostatic and endorsed complaints of lightheadedness. 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 Has had trans-bronchial biopsy completed in the past 5-Hypothyroidism Levothyroxine - check thyroid profile - TSH low DVT prophylaxis On Eliquis Dispo: Hospice on board as per pt wishes, f/u call was placed today, awaiting transition to hospice VS,Fishbone, I+O VS, Fishbone, I+O Laboratory Tests 11/22/18 05:58 Red Blood Count 3.86 L, Mean Corpuscular Volume 97.9 H, Mean Corpuscular Hemoglobin 31.3, Mean Corpuscular Hemoglobin Concent 32.0, Red Cell Distribution Width 13.7, Calcium Level 8.6 L Vital Signs Date Time Temp Pulse Resp B/P (MAP) Pulse Ox O2 Delivery O2 Flow Rate FiO2 11/22/18 17:34 16 1.0 11/22/18 14:00 96.8 85 113/59 (77) 93 11/18/18 09:30 Nasal Cannula I&O- Last 24 Hours up to 6 AM 11/22/18 06:00 Intake Total 840 ml Output Total 1175 ml Balance -335 ml LIEN SANTANA MD Nov 22, 2018 18:26
[2018-11-22] MEDS: ATORVASTATIN 20 MG TAB GT SCH (20:12)
[2018-11-22 22:00] VITALS: BP 125/72
[2018-11-23] MEDS: oxyCODONE 5MG TAB GT PRN ×6 (00:54→21:32)
[2018-11-23] MEDS: IPRATROPIUM 0.5MG/ALBUTEROL 2.5MG INH SOL UD 3ML (DUONEB)(J7620) NEB SCH ×4 (02:00→20:36)
[2018-11-23] MEDS: SLF 3 ML SYR IV SCH ×3 (05:27→21:33)
[2018-11-23] MEDS: LEVOTHYROXINE 100MCG TABLET (0.1MG) GT SCH (05:27)
[2018-11-23 06:00] VITALS: BP 134/80
[2018-11-23] MEDS: APIXABAN 5 MG TAB (ELIQUIS) FT SCH ×2 (09:26→21:32)
[2018-11-23] MEDS: ESCITALOPRAM OXALATE 10 MG TAB (LEXAPRO) FT SCH (09:26)
[2018-11-23] MEDS: NS 1,000 ML IV SCH (09:26)
[2018-11-23 14:00] VITALS: BP 118/60
--- NOTE | 2018-11-23 14:50 | IPNPDOC ---
Text Note Date of Service The patient was seen on 11/23/18. NOTE Denies new complaints. Pending placement. General: pt is comfortable in bed NAD HEENT: SPIKE neck supple no icterus no JVD Lungs: clear bilat CVS: S1 S2 no murmur Abd: soft, NT, +BS, PEG tube in place Ext: no edema no tenderness no cyanosis Neuro: motor sensory grossly intact Vital Signs Date Time Temp Pulse Resp B/P (MAP) Pulse Ox O2 Delivery O2 Flow Rate FiO2 11/23/18 14:03 18 11/23/18 13:33 16 11/23/18 09:56 2.0 11/23/18 09:26 18 2.0 11/23/18 06:00 97.5 78 18 134/80 (98) 95 2.0 11/23/18 05:27 20 11/23/18 00:54 20 11/22/18 22:00 98.2 72 18 125/72 (89) 96 2.0 11/22/18 21:00 1.0 11/22/18 20:50 20 11/22/18 16:34 16 1.0 11/22/18 15:15 1.0 Intake & Output 11/23/18 06:00 Intake Total 3275 ml Output Total 2925 ml Balance 350 ml Current Medications Medications (Trade) Dose Ordered Sig/Isael Route PRN Reason Start Time Stop Time Status Last Admin Dose Admin Albuterol/ Ipratropium (Duoneb (Ipr 0.5mg/Alb 2.5mg)) 3 ml RQ6H NEB 11/18/18 08:00 11/23/18 13:40 3 ML Apixaban (Eliquis) 5 mg BID FT 11/18/18 09:00 11/23/18 09:26 5 MG Atorvastatin Calcium (Lipitor) 40 mg QHS GT 11/18/18 21:00 11/22/18 20:12 40 MG Escitalopram Oxalate (Lexapro) 10 mg DAILY FT 11/18/18 09:00 11/23/18 09:26 10 MG Levothyroxine Sodium (Synthroid) 100 mcg DAILY@0600 GT 11/18/18 06:00 11/23/18 05:27 100 MCG Oxycodone HCl (Roxicodone, Oxyir) 15 mg Q4H PRN GT PAIN 11/18/18 06:15 11/23/18 13:33 15 MG Sodium Chloride (Saline Lock Flush) 2 ml SLF IV 11/19/18 22:00 11/23/18 13:34 2 ML A/P: 67-year-old male with a PMHx of Tonsillar CA (2010; s/p Chemo and radiation), Esophageal strictures 2/2 radiation (s/p Dilation 2013; s/p G-tube 2016), DLP, COPD, Recent PE (on Eliquis), 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 In the ER, the patient's vital signs were noted to be orthostatic positive. This did improve with some IV fluid hydration, but the patient still continued to be orthostatic and endorsed complaints of lightheadedness. 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
[2018-11-23] MEDS: ATORVASTATIN 20 MG TAB GT SCH (21:32)
[2018-11-23 22:00] VITALS: BP 106/68
[2018-11-24] MEDS: oxyCODONE 5MG TAB GT PRN ×6 (01:43→22:48)
[2018-11-24] MEDS: IPRATROPIUM 0.5MG/ALBUTEROL 2.5MG INH SOL UD 3ML (DUONEB)(J7620) NEB SCH ×4 (02:00→20:42)
[2018-11-24 06:00] VITALS: BP 126/77
[2018-11-24] MEDS: LEVOTHYROXINE 100MCG TABLET (0.1MG) GT SCH (06:12)
[2018-11-24] MEDS: SLF 3 ML SYR IV SCH ×3 (06:13→22:48)
[2018-11-24] MEDS: ESCITALOPRAM OXALATE 10 MG TAB (LEXAPRO) FT SCH (09:00)
[2018-11-24] MEDS: APIXABAN 5 MG TAB (ELIQUIS) FT SCH ×2 (09:11→22:47)
[2018-11-24 14:00] VITALS: BP 128/67
[2018-11-24 22:00] VITALS: BP 115/64
[2018-11-24] MEDS: ATORVASTATIN 20 MG TAB GT SCH (22:47)
--- NOTE | 2018-11-24 23:10 | IPNPDOC ---
Text Note Date of Service The patient was seen on 11/24/18. NOTE Pt denies any acute complaints. No events overnight reported. PHE General: pt is comfortable in bed NAD HEENT: SPIKE neck supple no icterus no JVD Lungs: clear bilat CVS: S1 S2 no murmur Abd: soft, NT, +BS, PEG tube in place Ext: no edema no tenderness no cyanosis Neuro: motor sensory grossly intact Vital Signs Date Time Temp Pulse Resp B/P (MAP) Pulse Ox O2 Delivery O2 Flow Rate FiO2 11/24/18 22:48 18 11/24/18 22:00 98.3 88 16 115/64 (81) 91 2.0 11/24/18 19:09 16 11/24/18 18:39 18 11/24/18 14:38 16 11/24/18 14:00 99.0 91 20 128/67 (87) 91 2.0 11/24/18 10:24 16 11/24/18 09:30 1.0 11/24/18 06:12 20 11/24/18 06:00 98.4 93 18 126/77 (93) 97 2.0 11/24/18 01:43 20 Intake & Output 11/24/18 06:00 Intake Total 1375 ml Output Total 1650 ml Balance -275 ml Current Medications Medications (Trade) Dose Ordered Sig/Isael Route PRN Reason Start Time Stop Time Status Last Admin Dose Admin Albuterol/ Ipratropium (Duoneb (Ipr 0.5mg/Alb 2.5mg)) 3 ml RQ6H NEB 11/18/18 08:00 11/24/18 20:42 3 ML Apixaban (Eliquis) 5 mg BID FT 11/18/18 09:00 11/24/18 22:47 5 MG Atorvastatin Calcium (Lipitor) 40 mg QHS GT 11/18/18 21:00 11/24/18 22:47 40 MG Escitalopram Oxalate (Lexapro) 10 mg DAILY FT 11/18/18 09:00 11/24/18 09:00 10 MG Levothyroxine Sodium (Synthroid) 100 mcg DAILY@0600 GT 11/18/18 06:00 11/24/18 06:12 100 MCG Oxycodone HCl (Roxicodone, Oxyir) 15 mg Q4H PRN GT PAIN 11/18/18 06:15 11/24/18 22:48 15 MG Sodium Chloride (Saline Lock Flush) 2 ml SLF IV 11/19/18 22:00 11/24/18 22:48 2 ML A/P: 67-year-old male with a PMHx of Tonsillar CA (2010; s/p Chemo and radiation), Esophageal strictures 2/2 radiation (s/p Dilation 2013; s/p G-tube 2016), DLP, COPD, Recent PE (on Eliquis), 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 In the ER, the patient's vital signs were noted to be orthostatic positive. This did improve with some IV fluid hydration, but the patient still continued to be orthostatic and endorsed complaints of lightheadedness. 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
[2018-11-25] MEDS: IPRATROPIUM 0.5MG/ALBUTEROL 2.5MG INH SOL UD 3ML (DUONEB)(J7620) NEB SCH ×4 (01:38→20:23)
[2018-11-25] MEDS: oxyCODONE 5MG TAB GT PRN ×5 (02:51→22:42)
[2018-11-25 06:00] VITALS: BP 95/58
[2018-11-25] MEDS: LEVOTHYROXINE 100MCG TABLET (0.1MG) GT SCH (06:03)
[2018-11-25] MEDS: SLF 3 ML SYR IV SCH ×3 (06:33→22:42)
[2018-11-25] MEDS: ESCITALOPRAM OXALATE 10 MG TAB (LEXAPRO) FT SCH (08:11)
[2018-11-25] MEDS: APIXABAN 5 MG TAB (ELIQUIS) FT SCH ×2 (08:11→22:42)
[2018-11-25 14:00] VITALS: BP 100/59
--- NOTE | 2018-11-25 19:57 | IPNPDOC ---
Text Note Date of Service The patient was seen on 11/25/18. NOTE Pt is comfortable. No acute distress. Overall no change in clinical status. PHE General: pt is comfortable in bed NAD HEENT: SPIKE neck supple no icterus no JVD Lungs: clear bilat CVS: S1 S2 no murmur Abd: soft, NT, +BS, PEG tube in place Ext: no edema no tenderness no cyanosis Neuro: motor sensory grossly intact Vital Signs Date Time Temp Pulse Resp B/P (MAP) Pulse Ox O2 Delivery O2 Flow Rate FiO2 11/25/18 18:28 16 11/25/18 17:58 16 11/25/18 14:00 98.5 80 16 100/59 (73) 92 2.0 11/25/18 12:41 16 1.0 11/25/18 09:00 1.0 11/25/18 07:41 16 11/25/18 06:00 97.4 81 20 95/58 (70) 91 2.0 11/25/18 02:51 16 11/24/18 22:48 18 11/24/18 22:15 1.0 11/24/18 22:00 98.3 88 16 115/64 (81) 91 2.0 Intake & Output 11/25/18 06:00 Intake Total 2740 ml Output Total 2465 ml Balance 275 ml Current Medications Medications (Trade) Dose Ordered Sig/Isael Route PRN Reason Start Time Stop Time Status Last Admin Dose Admin Albuterol/ Ipratropium (Duoneb (Ipr 0.5mg/Alb 2.5mg)) 3 ml RQ6H NEB 11/18/18 08:00 11/25/18 13:12 3 ML Apixaban (Eliquis) 5 mg BID FT 11/18/18 09:00 11/25/18 08:11 5 MG Atorvastatin Calcium (Lipitor) 40 mg QHS GT 11/18/18 21:00 11/24/18 22:47 40 MG Escitalopram Oxalate (Lexapro) 10 mg DAILY FT 11/18/18 09:00 11/25/18 08:11 10 MG Levothyroxine Sodium (Synthroid) 100 mcg DAILY@0600 GT 11/18/18 06:00 11/25/18 06:03 100 MCG Oxycodone HCl (Roxicodone, Oxyir) 15 mg Q4H PRN GT PAIN 11/18/18 06:15 11/25/18 17:58 15 MG Sodium Chloride (Saline Lock Flush) 2 ml SLF IV 11/19/18 22:00 11/25/18 12:41 2 ML A/P: 67-year-old male with a PMHx of Tonsillar CA (2010; s/p Chemo and radiation), Esophageal strictures 2/2 radiation (s/p Dilation 2013; s/p G-tube 2016), DLP, COPD, Recent PE (on Eliquis), 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 In the ER, the patient's vital signs were noted to be orthostatic positive. This did improve with some IV fluid hydration, but the patient still continued to be orthostatic and endorsed complaints of lightheadedness. 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
[2018-11-25 22:00] VITALS: BP 102/60
[2018-11-25] MEDS: ATORVASTATIN 20 MG TAB GT SCH (22:41)
[2018-11-26] MEDS: IPRATROPIUM 0.5MG/ALBUTEROL 2.5MG INH SOL UD 3ML (DUONEB)(J7620) NEB SCH ×4 (01:52→20:50)
[2018-11-26 06:00] VITALS: BP 112/71
[2018-11-26] MEDS: SLF 3 ML SYR IV SCH ×2 (06:00→13:20)
[2018-11-26] MEDS: oxyCODONE 5MG TAB GT PRN ×4 (07:04→22:16)
[2018-11-26] MEDS: LEVOTHYROXINE 100MCG TABLET (0.1MG) GT SCH (07:04)
[2018-11-26] MEDS: ESCITALOPRAM OXALATE 10 MG TAB (LEXAPRO) FT SCH (09:19)
[2018-11-26] MEDS: APIXABAN 5 MG TAB (ELIQUIS) FT SCH ×2 (09:19→22:15)
[2018-11-26 14:00] VITALS: BP 110/66
[2018-11-26 22:00] VITALS: BP 96/58
[2018-11-26] MEDS: ATORVASTATIN 20 MG TAB GT SCH (22:16)
--- NOTE | 2018-11-26 23:03 | IPNPDOC ---
Text Note Date of Service The patient was seen on 11/26/18. NOTE Pt was seen and examined at bedside. denies any distress. Pt lying comfortable in bed. Denies any chest pain dizziness or headache. PHE General: pt is comfortable in bed NAD HEENT: SPIKE neck supple no icterus no JVD Lungs: clear bilat CVS: S1 S2 no murmur Abd: soft, NT, +BS, PEG tube in place Ext: no edema no tenderness no cyanosis Neuro: motor sensory grossly intact Vital Signs Date Time Temp Pulse Resp B/P (MAP) Pulse Ox O2 Delivery O2 Flow Rate FiO2 11/26/18 22:16 16 11/26/18 18:40 18 1.0 11/26/18 18:10 20 1.0 11/26/18 14:00 96.6 74 19 110/66 (81) 97 2.0 11/26/18 11:38 18 1.0 11/26/18 09:00 1.0 11/26/18 07:04 20 11/26/18 06:00 97.0 88 17 112/71 (85) 91 1.0 Intake & Output 11/26/18 06:00 Intake Total 1733 ml Output Total 1875 ml Balance -142 ml Current Medications Medications (Trade) Dose Ordered Sig/Isael Route PRN Reason Start Time Stop Time Status Last Admin Dose Admin Albuterol/ Ipratropium (Duoneb (Ipr 0.5mg/Alb 2.5mg)) 3 ml RQ6H NEB 11/18/18 08:00 11/26/18 13:12 3 ML Apixaban (Eliquis) 5 mg BID FT 11/18/18 09:00 11/26/18 22:15 5 MG Atorvastatin Calcium (Lipitor) 40 mg QHS GT 11/18/18 21:00 11/26/18 22:16 40 MG Escitalopram Oxalate (Lexapro) 10 mg DAILY FT 11/18/18 09:00 11/26/18 09:19 10 MG Levothyroxine Sodium (Synthroid) 100 mcg DAILY@0600 GT 11/18/18 06:00 11/26/18 07:04 100 MCG Oxycodone HCl (Roxicodone, Oxyir) 15 mg Q4H PRN GT PAIN 11/18/18 06:15 11/26/18 22:16 15 MG Sodium Chloride (Saline Lock Flush) 2 ml SLF IV 11/19/18 22:00 11/26/18 13:20 2 ML A/P: 67-year-old male with a PMHx of Tonsillar CA (2010; s/p Chemo and radiation), Esophageal strictures 2/2 radiation (s/p Dilation 2013; s/p G-tube 2016), DLP, COPD, Recent PE (on Eliquis), 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 In the ER, the patient's vital signs were noted to be orthostatic positive. This did improve with some IV fluid hydration, but the patient still continued to be orthostatic and endorsed complaints of lightheadedness. 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 VS,Fishbone, I+O VS, Fishbone, I+O Vital Signs Date Time Temp Pulse Resp B/P (MAP) Pulse Ox O2 Delivery O2 Flow Rate FiO2 11/26/18 22:16 16 11/26/18 18:40 1.0 11/26/18 14:00 96.6 74 110/66 (81) 97 I&O- Last 24 Hours up to 6 AM 11/26/18 06:00 Intake Total 1733 ml Output Total 1875 ml Balance -142 ml LIEN SANTANA MD Nov 26, 2018 23:03
[2018-11-27] MEDS: IPRATROPIUM 0.5MG/ALBUTEROL 2.5MG INH SOL UD 3ML (DUONEB)(J7620) NEB SCH ×4 (00:58→20:25)
[2018-11-27] MEDS: SLF 3 ML SYR IV SCH ×4 (01:11→23:06)
[2018-11-27] MEDS: oxyCODONE 5MG TAB GT PRN ×5 (03:06→23:06)
[2018-11-27 06:00] VITALS: BP 95/59
[2018-11-27] MEDS: LEVOTHYROXINE 100MCG TABLET (0.1MG) GT SCH (06:07)
[2018-11-27] MEDS: ESCITALOPRAM OXALATE 10 MG TAB (LEXAPRO) FT SCH (07:32)
[2018-11-27] MEDS: APIXABAN 5 MG TAB (ELIQUIS) FT SCH ×2 (07:32→23:05)
[2018-11-27 14:00] VITALS: BP 123/75
[2018-11-27 22:00] VITALS: BP 98/63
[2018-11-27] MEDS: ATORVASTATIN 20 MG TAB GT SCH (23:05)
[2018-11-28] MEDS: IPRATROPIUM 0.5MG/ALBUTEROL 2.5MG INH SOL UD 3ML (DUONEB)(J7620) NEB SCH ×4 (01:39→23:35)
[2018-11-28] MEDS: oxyCODONE 5MG TAB GT PRN ×5 (03:07→22:56)
--- NOTE | 2018-11-28 05:41 | IPNPDOC ---
Text Note Date of Service The patient was seen on 11/27/18. NOTE The patient was seen on 11/27/18. Pt was seen and examined at bedside. AAOx3, NAD. Pt denies any complaints. Comf ortable in bed. His sister is at bedside. PHE General: pt is comfortable in bed NAD HEENT: SPIKE neck supple no icterus no JVD Lungs: clear bilat CVS: S1 S2 no murmur Abd: soft, NT, +BS, PEG tube in place Ext: no edema no tenderness no cyanosis Neuro: motor sensory grossly intact Vital Signs Date Time Temp Pulse Resp B/P (MAP) Pulse Ox O2 Delivery O2 Flow Rate FiO2 11/28/18 03:07 18 11/27/18 23:36 18 11/27/18 23:06 16 11/27/18 22:45 1.0 11/27/18 22:00 98.0 80 18 98/63 (75) 93 1.0 11/27/18 17:15 19 1.0 11/27/18 14:00 97.1 74 15 123/75 (91) 93 1.0 11/27/18 13:13 1.0 11/27/18 12:43 19 1.0 11/27/18 09:00 1.0 11/27/18 07:33 20 1.0 11/27/18 06:00 97.7 76 18 95/59 (71) 92 2.0 Intake & Output 11/28/18 06:00 Intake Total 1200 ml Output Total 2050 ml Balance -850 ml Current Medications Medications (Trade) Dose Ordered Sig/Isael Route PRN Reason Start Time Stop Time Status Last Admin Dose Admin Albuterol/ Ipratropium (Duoneb (Ipr 0.5mg/Alb 2.5mg)) 3 ml RQ6H NEB 11/18/18 08:00 11/27/18 20:25 3 ML Apixaban (Eliquis) 5 mg BID FT 11/18/18 09:00 11/27/18 23:05 5 MG Atorvastatin Calcium (Lipitor) 40 mg QHS GT 11/18/18 21:00 11/27/18 23:05 40 MG Escitalopram Oxalate (Lexapro) 10 mg DAILY FT 11/18/18 09:00 11/27/18 07:32 10 MG Levothyroxine Sodium (Synthroid) 100 mcg DAILY@0600 GT 11/18/18 06:00 11/27/18 06:07 100 MCG Oxycodone HCl (Roxicodone, Oxyir) 15 mg Q4H PRN GT PAIN 11/18/18 06:15 11/28/18 03:07 15 MG Sodium Chloride (Saline Lock Flush) 2 ml SLF IV 11/19/18 22:00 11/27/18 23:06 2 ML A/P: 67-year-old male with a PMHx of Tonsillar CA (2010; s/p Chemo and radiation), Esophageal strictures 2/2 radiation (s/p Dilation 2013; s/p G-tube 2016), DLP, COPD, Recent PE (on Eliquis), 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 In the ER, the patient's vital signs were noted to be orthostatic positive. This did improve with some IV fluid hydration, but the patient still continued to be orthostatic and endorsed complaints of lightheadedness. 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 F/U Thursday with SW/JOHN. VS,Fishbone, I+O VS, Fishbone, I+O Vital Signs Date Time Temp Pulse Resp B/P (MAP) Pulse Ox O2 Delivery O2 Flow Rate FiO2 11/28/18 03:07 18 11/27/18 22:45 1.0 11/27/18 22:00 98.0 80 98/63 (75) 93 I&O- Last 24 Hours up to 6 AM 11/28/18 06:00 Intake Total 1200 ml Output Total 2050 ml Balance -850 ml LIEN SANTANA MD Nov 28, 2018 05:41
[2018-11-28] MEDS: LEVOTHYROXINE 100MCG TABLET (0.1MG) GT SCH (06:24)
[2018-11-28] MEDS: SLF 3 ML SYR IV SCH ×2 (07:42→13:51)
[2018-11-28] MEDS: APIXABAN 5 MG TAB (ELIQUIS) FT SCH ×2 (09:24→22:56)
[2018-11-28] MEDS: ESCITALOPRAM OXALATE 10 MG TAB (LEXAPRO) FT SCH (09:24)
--- NOTE | 2018-11-28 12:08 | IPNPDOC ---
Subjective Date Seen The patient was seen on 11/28/18. Subjective Chief Complaint/HPI Patient seen and examined at the bedside. No acute overnight events noted. Objective Physical Examination General Exam: Positive: Alert, Cooperative, No Acute Distress ENT Exam: Positive: Atraumatic Chest Exam: Positive: Diminished Heart Exam: Positive: Rate Normal, Normal S1, Normal S2 Abdomen Exam: Positive: Soft, Other (+G-Tube); Negative: Tenderness Extremity Exam: Negative: Tenderness, Swelling Psych Exam: Positive: Oriented x 3 Assessment /Plan Plan/VTE VTE Prophylaxis Ordered?: Yes Plan 1-syncopal episode - likely secondary to persistent orthostatic hypotension - follow up cultures, negative to date - echo = grade 1 diastolic dysfunction - metoprolol on hold 2-Hx of Tonsillar CA - s/p chemotherapy, radiation, G-Tube placement 3-Recent PE CTA chest on 10/25/18 revealed resolution of prior PE Continue Eliquis 4-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
[2018-11-28 14:00] VITALS: BP 105/64
[2018-11-28 22:00] VITALS: BP 99/62
[2018-11-28] MEDS: ATORVASTATIN 20 MG TAB GT SCH (22:56)
[2018-11-29] MEDS: SLF 3 ML SYR IV SCH ×5 (00:26→22:13)
[2018-11-29] MEDS: IPRATROPIUM 0.5MG/ALBUTEROL 2.5MG INH SOL UD 3ML (DUONEB)(J7620) NEB SCH ×4 (02:00→21:42)
[2018-11-29] MEDS: oxyCODONE 5MG TAB GT PRN ×5 (03:41→22:13)
[2018-11-29] MEDS: LEVOTHYROXINE 100MCG TABLET (0.1MG) GT SCH (05:45)
[2018-11-29 06:00] VITALS: BP 106/64
[2018-11-29] MEDS: ESCITALOPRAM OXALATE 10 MG TAB (LEXAPRO) FT SCH (08:24)
[2018-11-29] MEDS: APIXABAN 5 MG TAB (ELIQUIS) FT SCH ×2 (08:24→22:13)
[2018-11-29 14:00] VITALS: BP 114/74
--- NOTE | 2018-11-29 21:11 | IPNPDOC ---
Subjective Date Seen The patient was seen on 11/29/18. at 1032am Subjective Chief Complaint/HPI syncope Events since last encounter no acute events Objective Physical Examination General Exam: Positive: Alert, Cooperative, No Acute Distress Eye Exam: Positive: EOMI ENT Exam: Positive: Atraumatic Chest Exam: Positive: Clear to auscultation, Normal air movement Heart Exam: Positive: Rate Normal, Normal S1, Normal S2 Abdomen Exam: Positive: Soft, Other (+G-Tube); Negative: Tenderness Extremity Exam: Negative: Tenderness, Swelling Psych Exam: Positive: Oriented x 3 Assessment /Plan Assessment is a 67 yr old M w a PMH o Tonsillar CA ( s/p Chemo and radiation) complicataed by Esophageal strictures 2/2 radiation requiring Dilation 2013 s/p G-tube 2016), DLP, COPD, PE (on Eliquis), 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 1.Syncope 2/2 orthostatic hypotension -resolved -work up only remarkable for G1DD on Echo Plan: continue to hold Metoprolol 2.Hx of PE Plan: c/w home meds 3.Stable COPD Plan: c/w home meds 4.Hypothyrodism Plan: c/w home meds 5.Chronic Macrocytic Anemia Plan: can f/u w PCP for work up bc Hg was stable DISPO; pending placement DVT px w abixaban Plan/VTE VTE Prophylaxis Ordered?: Yes VS, I&O, 24H, Fishbone Vital Signs/I&O Vital Signs Date Time Temp Pulse Resp B/P (MAP) Pulse Ox O2 Delivery O2 Flow Rate FiO2 11/29/18 18:18 16 11/29/18 17:48 1.0 11/29/18 14:00 99.0 83 114/74 (87) 98 I&O- Last 24 Hours up to 6 AM 11/29/18 06:00 Intake Total 2640 ml Output Total 1135 ml Balance 1505 ml ALFIE SWARTZ MD Nov 29, 2018 21:11
[2018-11-29 22:00] VITALS: BP 121/77
[2018-11-29] MEDS: ATORVASTATIN 20 MG TAB GT SCH (22:13)
[2018-11-30] MEDS: IPRATROPIUM 0.5MG/ALBUTEROL 2.5MG INH SOL UD 3ML (DUONEB)(J7620) NEB SCH ×4 (02:00→21:11)
[2018-11-30] MEDS: oxyCODONE 5MG TAB GT PRN ×6 (02:31→22:32)
[2018-11-30 06:00] VITALS: BP 98/62
[2018-11-30] MEDS: SLF 3 ML SYR IV SCH (06:00)
[2018-11-30] MEDS: LEVOTHYROXINE 100MCG TABLET (0.1MG) GT SCH (06:33)
[2018-11-30] MEDS: APIXABAN 5 MG TAB (ELIQUIS) FT SCH ×2 (08:11→22:22)
[2018-11-30] MEDS: ESCITALOPRAM OXALATE 10 MG TAB (LEXAPRO) FT SCH (08:11)
[2018-11-30] MEDS ORDERED: DOCUSATE SODIUM 100 MG CAP PO PRN (11:30)
[2018-11-30 14:00] VITALS: BP 116/68
--- NOTE | 2018-11-30 20:28 | IPNPDOC ---
Subjective Date Seen The patient was seen on 11/30/18. 615pm Subjective Chief Complaint/HPI syncope Events since last encounter no acute events Objective Physical Examination General Exam: Positive: Alert, Cooperative, No Acute Distress Eye Exam: Positive: EOMI ENT Exam: Positive: Atraumatic Chest Exam: Positive: Clear to auscultation, Normal air movement Heart Exam: Positive: Rate Normal, Normal S1, Normal S2 Abdomen Exam: Positive: Soft, Other (+G-Tube); Negative: Tenderness Extremity Exam: Negative: Tenderness, Swelling Psych Exam: Positive: Oriented x 3 Assessment /Plan Assessment is a 67 yr old M w a PMH o Tonsillar CA ( s/p Chemo and radiation) complicataed by Esophageal strictures 2/2 radiation requiring Dilation 2013 s/p G-tube 2016), DLP, COPD, PE (on Eliquis), 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 1.Syncope 2/2 orthostatic hypotension -resolved -work up only remarkable for G1DD on Echo Plan: continue to hold Metoprolol 2.Hx of PE Plan: c/w home meds 3.Stable COPD Plan: c/w home meds 4.Hypothyrodism Plan: c/w home meds 5.Chronic Macrocytic Anemia Plan: can f/u w PCP for work up bc Hg was stable DISPO; pending placement DVT px w abixaban Plan/VTE VTE Prophylaxis Ordered?: Yes VS, I&O, 24H, Fishbone Vital Signs/I&O Vital Signs Date Time Temp Pulse Resp B/P (MAP) Pulse Ox O2 Delivery O2 Flow Rate FiO2 11/30/18 18:27 16 1.0 11/30/18 14:00 99.2 80 116/68 (84) 96 I&O- Last 24 Hours up to 6 AM 11/30/18 05:59 Intake Total 3650 ml Output Total 1690 ml Balance 1960 ml ALFIE SWARTZ MD Nov 30, 2018 20:28
[2018-11-30 22:00] VITALS: BP 114/68
[2018-11-30] MEDS: ATORVASTATIN 20 MG TAB GT SCH (22:22)
[2018-12-01] MEDS: IPRATROPIUM 0.5MG/ALBUTEROL 2.5MG INH SOL UD 3ML (DUONEB)(J7620) NEB SCH ×4 (00:35→20:25)
[2018-12-01] MEDS: oxyCODONE 5MG TAB GT PRN ×5 (02:41→21:37)
[2018-12-01] MEDS: LEVOTHYROXINE 100MCG TABLET (0.1MG) GT SCH (05:47)
[2018-12-01 06:00] VITALS: BP 115/70
[2018-12-01] MEDS: DOCUSATE SOD LIQ 100MG/10ML UDC GT PRN (07:59)
[2018-12-01] MEDS: APIXABAN 5 MG TAB (ELIQUIS) FT SCH ×2 (08:00→20:34)
[2018-12-01] MEDS: ESCITALOPRAM OXALATE 10 MG TAB (LEXAPRO) FT SCH (08:01)
[2018-12-01 14:00] VITALS: BP 101/56
--- NOTE | 2018-12-01 19:30 | IPNPDOC ---
Subjective Date Seen The patient was seen on 12/01/18. Time of service 2:40 PM Subjective Chief Complaint/HPI Syncope Events since last encounter No acute events Objective Physical Examination General Exam: Positive: Alert, Cooperative, No Acute Distress Eye Exam: Positive: EOMI ENT Exam: Positive: Atraumatic Chest Exam: Positive: Clear to auscultation, Normal air movement Heart Exam: Positive: Rate Normal, Normal S1, Normal S2 Abdomen Exam: Positive: Soft, Other (+G-Tube); Negative: Tenderness Extremity Exam: Negative: Tenderness, Swelling Psych Exam: Positive: Oriented x 3 Assessment /Plan Assessment is a 67 yr old M w a PMH o Tonsillar CA ( s/p Chemo and radiation) complicataed by Esophageal strictures 2/2 radiation requiring Dilation 2013 s/p G-tube 2016), DLP, COPD, PE (on Eliquis), 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 1.Syncope 2/2 orthostatic hypotension -resolved -work up only remarkable for G1DD on Echo Plan: continue to hold Metoprolol 2.Hx of PE Plan: c/w home meds 3.Stable COPD Plan: c/w home meds 4.Hypothyrodism Plan: c/w home meds 5.Chronic Macrocytic Anemia Plan: can f/u w PCP for work up bc Hg was stable DISPO; pending placement DVT px w abixaban Plan/VTE VTE Prophylaxis Ordered?: Yes VS, I&O, 24H, Fishbone Vital Signs/I&O Vital Signs Date Time Temp Pulse Resp B/P (MAP) Pulse Ox O2 Delivery O2 Flow Rate FiO2 12/01/18 18:00 16 12/01/18 14:00 97.2 66 101/56 (58) 94 1.0 I&O- Last 24 Hours up to 6 AM 12/01/18 06:00 Intake Total 2514 ml Output Total 775 ml Balance 1739 ml ALFIE SWARTZ MD Dec 01, 2018 19:30
[2018-12-01] MEDS: ATORVASTATIN 20 MG TAB GT SCH (20:34)
[2018-12-01 22:00] VITALS: BP 93/61
[2018-12-02] MEDS: oxyCODONE 5MG TAB GT PRN ×6 (01:24→21:29)
[2018-12-02] MEDS: IPRATROPIUM 0.5MG/ALBUTEROL 2.5MG INH SOL UD 3ML (DUONEB)(J7620) NEB SCH ×4 (01:58→20:00)
[2018-12-02] MEDS: LEVOTHYROXINE 100MCG TABLET (0.1MG) GT SCH (05:33)
[2018-12-02 06:00] VITALS: BP 103/61
[2018-12-02] MEDS: ESCITALOPRAM OXALATE 10 MG TAB (LEXAPRO) FT SCH (09:27)
[2018-12-02] MEDS: APIXABAN 5 MG TAB (ELIQUIS) FT SCH ×2 (09:28→21:28)
[2018-12-02 14:00] VITALS: BP 114/69
--- NOTE | 2018-12-02 19:53 | IPNPDOC ---
Subjective Date Seen The patient was seen on 12/02/18. Service 4:20 PM Subjective Chief Complaint/HPI syncope Events since last encounter Patient reports feeling well and denies having any additional episodes of dizziness Objective Physical Examination General Exam: Positive: Alert, Cooperative, No Acute Distress Eye Exam: Positive: EOMI ENT Exam: Positive: Atraumatic Chest Exam: Positive: Clear to auscultation, Normal air movement Heart Exam: Positive: Rate Normal, Normal S1, Normal S2 Abdomen Exam: Positive: Soft, Other (+G-Tube); Negative: Tenderness Extremity Exam: Negative: Tenderness, Swelling Psych Exam: Positive: Oriented x 3 Assessment /Plan Assessment is a 67 yr old M w a PMH o Tonsillar CA ( s/p Chemo and radiation) complicataed by Esophageal strictures 2/2 radiation requiring Dilation 2013 s/p G-tube 2016), DLP, COPD, PE (on Eliquis), 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 1.Syncope 2/2 orthostatic hypotension -resolved -work up only remarkable for G1DD on Echo Plan: continue to hold Metoprolol 2.Hx of PE Plan: c/w home meds 3.Stable COPD Plan: c/w home meds 4.Hypothyrodism Plan: c/w home meds 5.Chronic Macrocytic Anemia Plan: can f/u w PCP for work up bc Hg was stable DISPO; pending placement DVT px w abixaban Plan/VTE VTE Prophylaxis Ordered?: Yes VS, I&O, 24H, Fishbone Vital Signs/I&O Vital Signs Date Time Temp Pulse Resp B/P (MAP) Pulse Ox O2 Delivery O2 Flow Rate FiO2 12/02/18 18:20 16 1.0 12/02/18 14:00 97.2 69 114/69 (84) 96 I&O- Last 24 Hours up to 6 AM 12/02/18 06:00 Intake Total 1615 ml Output Total 1750 ml Balance -135 ml ALFIE SWARTZ MD Dec 02, 2018 19:53
[2018-12-02] MEDS: ATORVASTATIN 20 MG TAB GT SCH (21:28)
[2018-12-02 22:00] VITALS: BP 101/60
[2018-12-03] MEDS: IPRATROPIUM 0.5MG/ALBUTEROL 2.5MG INH SOL UD 3ML (DUONEB)(J7620) NEB SCH ×4 (00:14→20:17)
[2018-12-03] MEDS: oxyCODONE 5MG TAB GT PRN ×5 (01:41→21:44)
[2018-12-03] MEDS: LEVOTHYROXINE 100MCG TABLET (0.1MG) GT SCH (05:42)
[2018-12-03 06:00] VITALS: BP 101/60
[2018-12-03] MEDS: ESCITALOPRAM OXALATE 10 MG TAB (LEXAPRO) FT SCH (08:42)
[2018-12-03] MEDS: APIXABAN 5 MG TAB (ELIQUIS) FT SCH ×2 (08:42→20:54)
[2018-12-03 14:00] VITALS: BP 105/65
--- NOTE | 2018-12-03 18:34 | IPNPDOC ---
Subjective Date Seen The patient was seen on 12/03/18. Time of service 3:50 PM Subjective Chief Complaint/HPI syncope Events since last encounter The patient reports no acute complaints and is aware that this transfer is pending bed availability Objective Physical Examination General Exam: Positive: Alert, Cooperative, No Acute Distress Eye Exam: Positive: EOMI ENT Exam: Positive: Atraumatic Chest Exam: Positive: Clear to auscultation, Normal air movement Heart Exam: Positive: Rate Normal, Normal S1, Normal S2 Abdomen Exam: Positive: Soft, Other (+G-Tube); Negative: Tenderness Extremity Exam: Negative: Tenderness, Swelling Psych Exam: Positive: Oriented x 3 Assessment /Plan Assessment is a 67 yr old M w a PMH o Tonsillar CA ( s/p Chemo and radiation) complicataed by Esophageal strictures 2/2 radiation requiring Dilation 2013 s/p G-tube 2016), DLP, COPD, PE (on Eliquis), 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 1.Syncope 2/2 orthostatic hypotension -resolved -work up only remarkable for G1DD on Echo Plan: continue to hold Metoprolol 2.Hx of PE Plan: c/w home meds 3.Stable COPD Plan: c/w home meds 4.Hypothyrodism Plan: c/w home meds 5.Chronic Macrocytic Anemia Plan: can f/u w PCP for work up bc Hg was stable DISPO; pending placement DVT px w abixaban will be switching pt to [facility] Plan/VTE VTE Prophylaxis Ordered?: Yes VS, I&O, 24H, Fishbone Vital Signs/I&O Vital Signs Date Time Temp Pulse Resp B/P (MAP) Pulse Ox O2 Delivery O2 Flow Rate FiO2 12/03/18 17:58 16 1.0 12/03/18 14:00 97.6 66 105/65 (78) 93 I&O- Last 24 Hours up to 6 AM 12/03/18 06:00 Intake Total 1964 ml Output Total 1500 ml Balance 464 ml ALFIE SWARTZ MD Dec 03, 2018 18:34
[2018-12-03] MEDS: ATORVASTATIN 20 MG TAB GT SCH (20:54)
[2018-12-03 22:00] VITALS: BP 119/72
[2018-12-04] MEDS: IPRATROPIUM 0.5MG/ALBUTEROL 2.5MG INH SOL UD 3ML (DUONEB)(J7620) NEB SCH ×4 (00:21→20:00)
[2018-12-04] MEDS: oxyCODONE 5MG TAB GT PRN ×5 (02:40→21:44)
[2018-12-04] MEDS: LEVOTHYROXINE 100MCG TABLET (0.1MG) GT SCH (05:37)
[2018-12-04 06:00] VITALS: BP 99/61
[2018-12-04] MEDS: APIXABAN 5 MG TAB (ELIQUIS) FT SCH ×2 (08:28→21:44)
[2018-12-04] MEDS: ESCITALOPRAM OXALATE 10 MG TAB (LEXAPRO) FT SCH (08:28)
[2018-12-04] MEDS: DOCUSATE SOD LIQ 100MG/10ML UDC GT PRN (13:39)
[2018-12-04 14:00] VITALS: BP 114/72
[2018-12-04] MEDS: ATORVASTATIN 20 MG TAB GT SCH (21:44)
[2018-12-04 22:00] VITALS: BP 108/62
[2018-12-05] MEDS: oxyCODONE 5MG TAB GT PRN ×6 (01:48→23:02)
[2018-12-05] MEDS: IPRATROPIUM 0.5MG/ALBUTEROL 2.5MG INH SOL UD 3ML (DUONEB)(J7620) NEB SCH ×4 (02:00→20:00)
[2018-12-05] MEDS: LEVOTHYROXINE 100MCG TABLET (0.1MG) GT SCH (05:48)
[2018-12-05 06:00] VITALS: BP 112/64
[2018-12-05] MEDS: ESCITALOPRAM OXALATE 10 MG TAB (LEXAPRO) FT SCH (09:53)
[2018-12-05] MEDS: APIXABAN 5 MG TAB (ELIQUIS) FT SCH ×2 (09:53→21:31)
[2018-12-05 14:00] VITALS: BP 93/58
[2018-12-05] MEDS: ATORVASTATIN 20 MG TAB GT SCH (21:31)
[2018-12-05 22:00] VITALS: BP 99/61
[2018-12-06] MEDS: IPRATROPIUM 0.5MG/ALBUTEROL 2.5MG INH SOL UD 3ML (DUONEB)(J7620) NEB SCH ×4 (01:51→20:00)
[2018-12-06] MEDS: oxyCODONE 5MG TAB GT PRN ×5 (02:55→20:04)
[2018-12-06 06:00] VITALS: BP 90/54
[2018-12-06] MEDS: LEVOTHYROXINE 100MCG TABLET (0.1MG) GT SCH (06:44)
[2018-12-06] MEDS: APIXABAN 5 MG TAB (ELIQUIS) FT SCH ×2 (09:00→20:04)
[2018-12-06] MEDS: ESCITALOPRAM OXALATE 10 MG TAB (LEXAPRO) FT SCH (09:00)
[2018-12-06 09:03] LABS: BASO % 0.8 % (0.0-1.0); EOS # 0.3 10^3/uL (0.0-0.50); EOS % 5.6 % (0.0-3.0); HEMATOCRIT 38.7 % (42.0-52.0); HEMOGLOBIN 12.6 g/dl (13.5-17.5); LYMPH # 0.6 10^3/uL (1.5-4.5); LYMPH % 12.6 % (24.0-44.0); MEAN CORPUSCULAR HEMOGLOBIN 31.3 pg (27.0-33.0); MEAN CORPUSCULAR HGB CONC 32.6 g/dl (32.0-36.5); MEAN CORPUSCULAR VOLUME 96.3 fl (80.0-96.0); MONO # 0.6 10^3/uL (0.0-0.8); MONO % 11.5 % (0.0-5.0); NEUTROPHILS # 3.3 10^3/uL (1.8-7.7); NEUTROPHILS % 69.3 % (36.0-66.0); PLATELET COUNT, AUTOMATED 167 10^3/uL (150-450); RED BLOOD COUNT 4.02 10^6/uL (4.30-6.10); WHITE BLOOD COUNT 4.8 10^3/uL (4.0-10.0)
[2018-12-06 09:37] LABS: BLOOD UREA NITROGEN 15 MG/DL (7-18); CALCIUM LEVEL 8.6 MG/DL (8.8-10.2); CARBON DIOXIDE LEVEL 34 MEQ/L (21-32); CHLORIDE LEVEL 99 MEQ/L (98-107); GLOMERULAR FILTRATION RATE > 60.0 (>49); GLUCOSE, FASTING 127 MG/DL (70-100); POTASSIUM SERUM 4.3 MEQ/L (3.5-5.1); SODIUM LEVEL 138 MEQ/L (136-145)
[2018-12-06 14:00] VITALS: BP 126/75
--- NOTE | 2018-12-06 17:39 | IPNPDOC ---
Subjective Date Seen The patient was seen on 12/06/18. Time of service 10:25 AM Subjective Chief Complaint/HPI Syncope Events since last encounter The patient denies having any acute complaints. 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 1.Syncope 2/2 orthostatic hypotension -resolved -work up only remarkable for G1DD on Echo Plan: Discontinued Metoprolol 2.Hx of PE Plan: c/w home meds 3.Stable COPD Plan: c/w home meds 4.Hypothyrodism Plan: c/w home meds 5.Chronic Macrocytic Anemia Hemoglobin is stable Plan: can f/u w PCP for work up bc Hg was stable DISPO; pending placement DVT px w abixaban Plan/VTE VTE Prophylaxis Ordered?: Yes VS, I&O, 24H, [facility] Vital Signs/I&O Vital Signs Date Time Temp Pulse Resp B/P (MAP) Pulse Ox O2 Delivery O2 Flow Rate FiO2 12/06/18 16:23 18 1.0 12/06/18 14:00 97.5 79 126/75 (92) 98 I&O- Last 24 Hours up to 6 AM 12/06/18 06:00 Intake Total 2000 ml Output Total 2075 ml Balance -75 ml Laboratory Data 24H LABS Laboratory Tests 2 12/06/18 08:46: Immature Granulocyte % (Auto) 0.2, White Blood Count 4.8, Red Blood Count 4.02L, Hemoglobin 12.6L, Hematocrit 38.7L, Mean Corpuscular Volume 96.3H, Mean Corpuscular Hemoglobin 31.3, Mean Corpuscular Hemoglobin Concent 32.6, Red Cell Distribution Width 13.2, Platelet Count 167, Neutrophils (%) (Auto) 69.3H, Lymphocytes (%) (Auto) 12.6L, Monocytes (%) (Auto) 11.5H, Eosinophils (%) (Auto) 5.6H, Basophils (%) (Auto) 0.8, Neutrophils # (Auto) 3.3, Lymphocytes # (Auto) 0.6L, Monocytes # (Auto) 0.6, Eosinophils # (Auto) 0.3, Basophils # (Auto) 0.0, Nucleated Red Blood Cells % (auto) 0.0, Anion Gap 5L, Glomerular Filtration Rate > 60.0, Blood Urea Nitrogen 15, Creatinine 0.70, Sodium Level 138, Potassium Level 4.3, Chloride Level 99, Carbon Dioxide Level 34H, Calcium Level 8.6L CBC/BMP Laboratory Tests 12/06/18 08:46 Red Blood Count 4.02 L, Mean Corpuscular Volume 96.3 H, Mean Corpuscular Hemoglobin 31.3, Mean Corpuscular Hemoglobin Concent 32.6, Red Cell Distribution Width 13.2, Neutrophils (%) (Auto) 69.3 H, Lymphocytes (%) (Auto) 12.6 L, Monocytes (%) (Auto) 11.5 H, Eosinophils (%) (Auto) 5.6 H, Basophils (%) (Auto) 0.8, Neutrophils # (Auto) 3.3, Lymphocytes # (Auto) 0.6 L, Monocytes # (Auto) 0.6, Eosinophils # (Auto) 0.3, Basophils # (Auto) 0.0, Calcium Level 8.6 L ALFIE SWARTZ MD Dec 06, 2018 17:39
[2018-12-06] MEDS: ATORVASTATIN 20 MG TAB GT SCH (20:05)
[2018-12-06 22:00] VITALS: BP 100/58
[2018-12-07] MEDS: oxyCODONE 5MG TAB GT PRN ×6 (00:10→22:59)
[2018-12-07] MEDS: IPRATROPIUM 0.5MG/ALBUTEROL 2.5MG INH SOL UD 3ML (DUONEB)(J7620) NEB SCH ×4 (01:12→20:00)
[2018-12-07] MEDS: LEVOTHYROXINE 100MCG TABLET (0.1MG) GT SCH (05:18)
[2018-12-07 06:00] VITALS: BP 93/56
[2018-12-07] MEDS: APIXABAN 5 MG TAB (ELIQUIS) FT SCH ×2 (09:03→21:18)
[2018-12-07] MEDS: ESCITALOPRAM OXALATE 10 MG TAB (LEXAPRO) FT SCH (09:03)
[2018-12-07 14:00] VITALS: BP 100/54
[2018-12-07] MEDS: ATORVASTATIN 20 MG TAB GT SCH (21:18)
[2018-12-07 22:00] VITALS: BP 108/65
[2018-12-08] MEDS: IPRATROPIUM 0.5MG/ALBUTEROL 2.5MG INH SOL UD 3ML (DUONEB)(J7620) NEB SCH ×4 (02:00→20:00)
[2018-12-08] MEDS: oxyCODONE 5MG TAB GT PRN ×5 (02:56→20:23)
[2018-12-08] MEDS: LEVOTHYROXINE 100MCG TABLET (0.1MG) GT SCH (05:57)
[2018-12-08 06:00] VITALS: BP 105/64
[2018-12-08] MEDS: APIXABAN 5 MG TAB (ELIQUIS) FT SCH ×2 (08:54→20:21)
[2018-12-08] MEDS: ESCITALOPRAM OXALATE 10 MG TAB (LEXAPRO) FT SCH (08:54)
--- NOTE | 2018-12-08 11:25 | DS.PDOC ---
Discharge Summary General Date of Admission Nov 19, 2018 at 12:43 Date of Discharge 12/08/18 Primary Care Physician: Eliseo Leonard Attending Physician: ALFIE SWARTZ MD Discharge Summary PROCEDURES PERFORMED DURING STAY: [None]. ADMITTING DIAGNOSES: 1. Syncope, likely due to orthostatic hypotension DISCHARGE DIAGNOSES: 1. Syncope, likely due to orthostatic static hypotension has resolved after stopping metoprolol. 2 Chronic macrocytic anemia COMPLICATIONS/CHIEF COMPLAINT: Orthostatic Hypotension. HISTORY OF PRESENT ILLNESS: Per HPI Mr. Araiza is a 67-year-old male with a past medical history that includes tonsillar cancer, hypothyroidism, recent PE, chronic anemia, history of Lyme's disease, and osteoarthritis and anxiety who presented on November 18 with complaints of having a syncopal episode after getting up from sitting on the edge of the bed. He did not have any any prodromal symptoms. Orthostatics done in the ED were positive and the patient received IV fluids HOSPITAL COURSE: The patient was admitted to the general medical floor and IV fluids were continued. Cultures were done which were negative, and at an echocardiogram was done, which is grade 1 diastolic dysfunction. His metoprolol was discontinued. During his stay, his blood pressure was low while not taking the metoprolol. The most recent reading was 105/64. The patient was reexamined on December 08 at 10:20 AM and anticipated being transferred for rehabilitation. DISCHARGE MEDICATIONS: Please see below. ALLERGIES: Please see below. PHYSICAL EXAMINATION ON DISCHARGE: VITAL SIGNS: Please see below. GENERAL: Slim, well built, well-developed, no apparent distress HEENT: Normocephalic, atraumatic. Nasal cannula in place CARDIOVASCULAR EXAMINATION: Regular rate and rhythm. No murmurs, rubs or gallops RESPIRATORY EXAMINATION: Clear to auscultation bilaterally on room air ABDOMINAL EXAMINATION: Abdomen flat, soft and nontender on palpation. G-tube/PEG tube in place NEUROLOGICAL EXAMINATION: Cranial nerve II-12 grossly intact. Speech normal, but fully slightly high-pitched PSYCHIATRIC EXAMINATION:. Alert and oriented to person, place and time, able to understand and follow commands LABORATORY DATA: Please see below. IMAGING: CT of the chest done on November 19 showed "Extensive essentially lobar atelectasis in the left lower lobe unchanged from most recent prior study. There are significant atelectatic changes with air bronchograms and consolidation in the right lower lobe and right middle lobe. Some improvement in the right middle lobe is seen but there is more consolidation and more numerous air bronchograms in the right lower lobe today than was present on October 08, 2018. Central bronchial obstructive lesion suspected on the left." PROGNOSIS: Fair ACTIVITY: [As tolerated]. DIET: Tube feeds DISCHARGE PLAN: Transfer her to correction facility for rehabilitation DISPOSITION: . DISCHARGE INSTRUCTIONS: 1. The patient should follow-up with his PCP within the next 2 weeks. 2. Metoprolol has been discontinued ITEMS TO FOLLOWUP ON ON OUTPATIENT: 1. Strength / reconditioning. 2. Recurrence of syncope. DISCHARGE CONDITION: [Stable]. TIME SPENT ON DISCHARGE: Greater than 20 minutes. Vital Signs/I&Os Vital Signs Date Time Temp Pulse Resp B/P (MAP) Pulse Ox O2 Delivery O2 Flow Rate FiO2 12/08/18 09:00 1.0 12/08/18 08:12 18 12/08/18 07:42 95 12/08/18 06:00 96.9 67 105/64 (78) I&O- Last 24 Hours up to 6 AM 12/08/18 06:00 Intake Total 2700 ml Output Total 2100 ml Balance 600 ml Discharge Medications Scheduled Apixaban (Eliquis) 5 Mg Tablet, 5 MG FT BID, (Reported) Atorvastatin Calcium (Atorvastatin Calcium) 40 Mg Tablet, 40 MG FT QHS, (Reported) Escitalopram Oxalate (Escitalopram Oxalate) 10 Mg Tab, 10 MG FT DAILY, (Reported) Levothyroxine Sodium (Levothyroxine Sodium) 100 Mcg Tab, 100 MCG FT DAILY, (Reported) Scheduled PRN Oxycodone Hcl (Oxycodone HCl) 15 Mg Tablet, 15 MG FT Q4H PRN for PAIN, (Reported) Allergies Coded Allergies: latex (Verified Allergy, Intermediate, hives, 11/02/18) ALFIE SWARTZ MD Dec 08, 2018 11:25
[2018-12-08] MEDS: ATORVASTATIN 20 MG TAB GT SCH (20:21)
[2018-12-09] MEDS: oxyCODONE 5MG TAB GT PRN ×6 (00:27→20:49)
[2018-12-09] MEDS: IPRATROPIUM 0.5MG/ALBUTEROL 2.5MG INH SOL UD 3ML (DUONEB)(J7620) NEB SCH ×4 (01:54→20:00)
[2018-12-09 06:00] VITALS: BP 106/57
[2018-12-09] MEDS: LEVOTHYROXINE 100MCG TABLET (0.1MG) GT SCH (06:17)
[2018-12-09] MEDS: APIXABAN 5 MG TAB (ELIQUIS) FT SCH ×2 (08:49→20:48)
[2018-12-09] MEDS: ESCITALOPRAM OXALATE 10 MG TAB (LEXAPRO) FT SCH (08:49)
[2018-12-09] MEDS: ATORVASTATIN 20 MG TAB GT SCH (20:49)
[2018-12-09] MEDS: DOCUSATE SOD LIQ 100MG/10ML UDC GT PRN (20:49)
[2018-12-10] MEDS: oxyCODONE 5MG TAB GT PRN ×6 (00:55→23:16)
[2018-12-10] MEDS: LEVOTHYROXINE 100MCG TABLET (0.1MG) GT SCH (05:34)
[2018-12-10 06:00] VITALS: BP 108/58
[2018-12-10] MEDS: IPRATROPIUM 0.5MG/ALBUTEROL 2.5MG INH SOL UD 3ML (DUONEB)(J7620) NEB SCH ×3 (07:47→20:00)
[2018-12-10] MEDS: APIXABAN 5 MG TAB (ELIQUIS) FT SCH ×2 (09:24→23:15)
[2018-12-10] MEDS: ESCITALOPRAM OXALATE 10 MG TAB (LEXAPRO) FT SCH (09:24)
[2018-12-10] MEDS: ATORVASTATIN 20 MG TAB GT SCH (23:15)
[2018-12-11] MEDS: IPRATROPIUM 0.5MG/ALBUTEROL 2.5MG INH SOL UD 3ML (DUONEB)(J7620) NEB SCH ×4 (02:00→19:25)
[2018-12-11] MEDS: oxyCODONE 5MG TAB GT PRN ×5 (04:21→21:44)
[2018-12-11] MEDS: LEVOTHYROXINE 100MCG TABLET (0.1MG) GT SCH (05:33)
[2018-12-11 06:00] VITALS: BP 108/62
[2018-12-11] MEDS: APIXABAN 5 MG TAB (ELIQUIS) FT SCH ×2 (08:48→21:43)
[2018-12-11] MEDS: ESCITALOPRAM OXALATE 10 MG TAB (LEXAPRO) FT SCH (08:49)
[2018-12-11 14:00] VITALS: BP 97/55
[2018-12-11] MEDS: ATORVASTATIN 20 MG TAB GT SCH (21:43)
[2018-12-11 22:00] VITALS: BP 100/57
[2018-12-12] MEDS: IPRATROPIUM 0.5MG/ALBUTEROL 2.5MG INH SOL UD 3ML (DUONEB)(J7620) NEB SCH ×4 (02:00→20:00)
[2018-12-12] MEDS: oxyCODONE 5MG TAB GT PRN ×5 (03:36→20:07)
[2018-12-12] MEDS: LEVOTHYROXINE 100MCG TABLET (0.1MG) GT SCH (05:41)
[2018-12-12 06:00] VITALS: BP 98/53
[2018-12-12] MEDS: APIXABAN 5 MG TAB (ELIQUIS) FT SCH ×2 (09:45→20:07)
[2018-12-12] MEDS: ESCITALOPRAM OXALATE 10 MG TAB (LEXAPRO) FT SCH (09:45)
[2018-12-12] MEDS: DOCUSATE SOD LIQ 100MG/10ML UDC GT PRN (09:45)
[2018-12-12] MEDS: ATORVASTATIN 20 MG TAB GT SCH (20:06)
[2018-12-12 22:00] VITALS: BP 103/63
[2018-12-13] MEDS: oxyCODONE 5MG TAB GT PRN ×4 (00:15→13:10)
[2018-12-13] MEDS: IPRATROPIUM 0.5MG/ALBUTEROL 2.5MG INH SOL UD 3ML (DUONEB)(J7620) NEB SCH ×3 (02:00→14:00)
[2018-12-13] MEDS: LEVOTHYROXINE 100MCG TABLET (0.1MG) GT SCH (05:08)
[2018-12-13 06:00] VITALS: BP 103/64
[2018-12-13] MEDS: ESCITALOPRAM OXALATE 10 MG TAB (LEXAPRO) FT SCH (09:08)
[2018-12-13] MEDS: APIXABAN 5 MG TAB (ELIQUIS) FT SCH (09:08)
[2018-12-13 14:00] VITALS: BP 120/67
== END 2018-12-13 15:47 | disposition home or self-care (01) | DRG 641 ==
LOC: M ED 02:54 → M ED INP 05:56 → M PCU 09:44 → OBSVTOIN 11-19 12:43 → M MSPAV 11-21 09:30
PROVIDERS: ADMIT Internal Medicine; ATTEND Hospitalist
DX: E86.0 Dehydration (principal); A69.20 Lyme disease, unspecified; I95.1 Orthostatic hypotension; R13.10 Dysphagia, unspecified; D53.9 Nutritional anemia, unspecified; Z85.818 Personal history of malignant neoplasm of other sites of lip, oral cavity, and pharynx; E03.9 Hypothyroidism, unspecified; Z86.711 Personal history of pulmonary embolism; M19.90 Unspecified osteoarthritis, unspecified site; Z79.899 Other long term (current) drug therapy; Z91.040 Latex allergy status; J44.9 Chronic obstructive pulmonary disease, unspecified; Z79.01 Long term (current) use of anticoagulants; F41.9 Anxiety disorder, unspecified; Z93.1 Gastrostomy status; M54.2 Cervicalgia

== ENCOUNTER 2018-12-20 19:54 | Emergency (ER) | payer MEDICARE, MEDICAID ==
[~2018-12-20] VITALS: Ht 175.3 cm; Wt 77.3 kg
[~2018-12-20 19:54] MED LIST changes: +CEPH25SS FT
[2018-12-20] MEDS ORDERED: IPRATROPIUM 0.5MG/ALBUTEROL 2.5MG INH SOL UD 3ML (DUONEB)(J7620) NEB ONE (20:30)
[2018-12-20] MEDS ORDERED: ALBUTEROL SULFATE 2.5 MG/0.5 ML INH NEB SOLN INH ONE (20:30)
[2018-12-20 20:43] LABS: EOS # 0.2 10^3/uL (0.0-0.50); EOS % 5.4 % (0.0-3.0); HEMATOCRIT 39.6 % (42.0-52.0); HEMOGLOBIN 12.6 g/dl (13.5-17.5); LYMPH # 0.5 10^3/uL (1.5-4.5); LYMPH % 12.7 % (24.0-44.0); MEAN CORPUSCULAR HEMOGLOBIN 31.2 pg (27.0-33.0); MEAN CORPUSCULAR HGB CONC 31.8 g/dl (32.0-36.5); MONO # 0.7 10^3/uL (0.0-0.8); MONO % 16.2 % (0.0-5.0); NEUTROPHILS # 2.6 10^3/uL (1.8-7.7); NEUTROPHILS % 64.7 % (36.0-66.0); PLATELET COUNT, AUTOMATED 108 10^3/uL (150-450); RED BLOOD COUNT 4.04 10^6/uL (4.30-6.10); WHITE BLOOD COUNT 4.1 10^3/uL (4.0-10.0)
[2018-12-20 20:56] LABS: INR 1.04; PROTHROMBIN TIME 13.3 SECONDS (11.8-14.0)
--- NOTE | 2018-12-20 21:01 | ECGEPIP ---
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
[2018-12-20 21:28] LABS: ALBUMIN 2.9 GM/DL (3.2-5.2); ALT/SGPT 145 U/L (12-78); BILIRUBIN,DIRECT 0.1 MG/DL (0.0-0.2); BILIRUBIN,TOTAL 0.2 MG/DL (0.2-1.0); BLOOD UREA NITROGEN 14 MG/DL (7-18); CALCIUM LEVEL 8.8 MG/DL (8.8-10.2); CARBON DIOXIDE LEVEL 40 MEQ/L (21-32); CHLORIDE LEVEL 97 MEQ/L (98-107); CK-MB VALUE MASS < 1.0 NG/ML (<3.6); CPK CREATINE PHOSPHOKINASE 54 U/L (39-308); CREATININE FOR GFR 0.69 MG/DL (0.70-1.30); GLOMERULAR FILTRATION RATE > 60.0 (>49); GLUCOSE, FASTING 117 MG/DL (70-100); MB/CK RELATIVE INDEX 1.85 (< OR =4); NT-PRO BNP 67 PG/ML (<125); POTASSIUM SERUM 4.1 MEQ/L (3.5-5.1); SODIUM LEVEL 139 MEQ/L (136-145); TOTAL PROTEIN 6.3 GM/DL (6.4-8.2); TROPONIN I < 0.02 NG/ML (< 0.10)
[2018-12-20] MEDS ORDERED: dexameTHASONE 20 MG/5 ML VIAL (J1100) IV ONE (23:30)
[2018-12-20] MEDS ORDERED: oxyCODONE 5MG TAB PO ONE (23:30)
--- NOTE | 2018-12-21 00:23 | REPVR ---
EXAM: CT Chest Without Contrast EXAM DATE/TIME: 12/20/2018 10:39 PM CLINICAL HISTORY: 68 years old, male; Shortness of breath; Prior surgery TECHNIQUE: Imaging protocol: Axial computed tomography images of the chest without intravenous contrast. Coronal and sagittal reformatted images were created and reviewed. 3D rendering: MIP reconstructed images were created and reviewed. Radiation optimization: All CT scans at this facility use at least one of these dose optimization techniques: automated exposure control; mA and/or kV adjustment per patient size (includes targeted exams where dose is matched to clinical indication); or iterative reconstruction. COMPARISON: CT Chest without contrast 11/19/2018 2:05 PM FINDINGS: Lungs: There is chronic atelectasis involving the medial segment of the right middle lobe, posterior and lateral segments of the right lower lobe, and the posterior segment of the left lower lobe with associated cylindrical bronchiectasis, with improved aeration in the left lower lobe compared to the prior CT scan on 11/19/2018. There is also mild atelectasis in the inferior lingula. Pleural space: Unremarkable. No pneumothorax. No pleural effusion. Heart: No cardiomegaly. No pericardial effusion. There are coronary artery calcifications. Mediastinum: There are secretions in the right mainstem bronchus. Aorta: There is no thoracic aortic aneurysm or intramural hematoma. There are moderate to severe atherosclerotic calcifications. Lymph nodes: Normal. No enlarged lymph nodes. Bones/joints: There are mild chronic anterior wedge compression fractures of T1, L1, and L2, which are similar in appearance compared to the prior CT scan on 11/19/2018. The bones have a demineralized appearance. No suspicious osteolytic or osteoblastic lesion is noted. Soft tissues: Unremarkable. Diaphragm: There is elevation of the right hemidiaphragm, which is similar in appearance compared to the prior chest CT on 11/19/2018. Liver: Unremarkable. No liver lesion is seen. The contour of the liver is smooth. No hepatomegaly is noted. Gallbladder and bile ducts: No calcified gallstones are seen. No gallbladder wall thickening, pericholecystic fluid, or pericholecystic inflammatory changes are identified. No dilation of the intrahepatic or extrahepatic bile ducts is noted. Pancreas: Unremarkable. No dilation of the main pancreatic duct is noted. Spleen: Unremarkable. No splenomegaly is noted. Adrenals: Normal. No adrenal mass. Stomach: There is a PEG tube in place entering into the body of the stomach in appropriate position. IMPRESSION: 1. Chronic atelectasis involving the medial segment of the right middle lobe, posterior and lateral segments of the right lower lobe, and the posterior segment of the left lower lobe with associated cylindrical bronchiectasis, with improved aeration in the left lower lobe compared to the prior CT scan on 11/19/2018. 2. Mild chronic anterior wedge compression fractures of T1, L1, and L2, which are similar in appearance compared to the prior CT scan on 11/19/2018. Electronically signed by: Boo Handy On 12/21/2018 00:23:41 AM
[2018-12-21] MEDS ORDERED: PRED20TA PO (00:47)
[2018-12-21 01:29] VITALS: BP 144/73
--- NOTE | 2018-12-21 09:26 | REP ---
PORTABLE CHEST X-RAY: Single view. HISTORY: Dyspnea and cough. COMPARISON STUDY: November 17, 2018. FINDINGS: There is elevation of the right hemidiaphragm. There is plate-like atelectasis in the left base. These findings are similar to the prior study. Oxygen delivery tubing and EKG monitoring electrodes are seen. The heart is not felt to be enlarged. Aorta is calcific. No acute infiltrate is seen. IMPRESSION: Plate-like atelectasis left base. Elevated right hemidiaphragm as before. No acute infiltrate. Electronically Signed by Gunner Camara MD 12/21/2018 07:29 P
== END 2018-12-21 01:31 | disposition home or self-care (01) ==
LOC: M ED 19:54
DX: J44.1 Chronic obstructive pulmonary disease with (acute) exacerbation (principal); E03.9 Hypothyroidism, unspecified; E78.5 Hyperlipidemia, unspecified; A69.20 Lyme disease, unspecified; Z86.711 Personal history of pulmonary embolism; Z87.891 Personal history of nicotine dependence
CPT/HCPCS: 71045; 71250; 80048; 80076; 82550; 82553; 83880; 84443; 84484; 85025; 85610; 87040; 93005; 93041; 94760; 99285; J1100

== ENCOUNTER 2018-12-21 07:57 | Emergency (ER) | payer MEDICARE, MEDICAID ==
[~2018-12-21] VITALS: Ht 167.6 cm; Wt 68.2 kg
[2018-12-21 09:11] LABS: ABG BASE EXCESS 7.5 (-2.0-2.0); ABG HCO3 34.4 MEQ/L (22.0-26.0); ABG O2 SATURATION 97.1 % (95.0-99.0); ABG PARTIAL PRESSURE CO2 58.5 mmHg (35.0-45.0); ABG PARTIAL PRESSURE O2 90.1 mmHg (75.0-100.0); ABG STANDARD HCO3 31.3 MEQ/L (22.0-26.0); ABG TOTAL CO2 36.2 MEQ/L (23.0-31.0); ABG pH (ARTERIAL) 7.387 UNITS (7.350-7.450)
[2018-12-21 09:15] LABS: HEMATOCRIT 38.3 % (42.0-52.0); HEMOGLOBIN 12.5 g/dl (13.5-17.5); LYMPH % 6.1 % (24.0-44.0); MEAN CORPUSCULAR HEMOGLOBIN 30.8 pg (27.0-33.0); MEAN CORPUSCULAR HGB CONC 32.6 g/dl (32.0-36.5); MEAN CORPUSCULAR VOLUME 94.3 fl (80.0-96.0); MONO % 1.2 % (0.0-5.0); NEUTROPHILS # 2.3 10^3/uL (1.8-7.7); NEUTROPHILS % 92.3 % (36.0-66.0); PLATELET COUNT, AUTOMATED 114 10^3/uL (150-450); RED BLOOD COUNT 4.06 10^6/uL (4.30-6.10); WHITE BLOOD COUNT 2.5 10^3/uL (4.0-10.0)
[2018-12-21 09:34] LABS: ALBUMIN 2.7 GM/DL (3.2-5.2); ALT/SGPT 128 U/L (12-78); BILIRUBIN,TOTAL 0.3 MG/DL (0.2-1.0); BLOOD UREA NITROGEN 14 MG/DL (7-18); CALCIUM LEVEL 8.9 MG/DL (8.8-10.2); CARBON DIOXIDE LEVEL 34 MEQ/L (21-32); CHLORIDE LEVEL 98 MEQ/L (98-107); CK-MB VALUE MASS < 1.0 NG/ML (<3.6); CPK CREATINE PHOSPHOKINASE 50 U/L (39-308); CREATININE FOR GFR 0.96 MG/DL (0.70-1.30); GLOMERULAR FILTRATION RATE > 60.0 (>49); GLUCOSE, FASTING 225 MG/DL (70-100); POTASSIUM SERUM 3.8 MEQ/L (3.5-5.1); SODIUM LEVEL 137 MEQ/L (136-145); TOTAL PROTEIN 6.5 GM/DL (6.4-8.2); TROPONIN I < 0.02 NG/ML (< 0.10)
[2018-12-21 09:35] LABS: LYMPH # 0.2 10^3/uL (1.5-4.5)
--- NOTE | 2018-12-21 11:03 | ECGEPIP ---
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
[2018-12-21 12:20] VITALS: BP 121/67
== END 2018-12-21 12:23 | disposition home or self-care (01) ==
LOC: M ED 07:57
DX: R53.81 Other malaise (principal); E46 Unspecified protein-calorie malnutrition; J44.9 Chronic obstructive pulmonary disease, unspecified; M32.9 Systemic lupus erythematosus, unspecified; E78.5 Hyperlipidemia, unspecified; D64.9 Anemia, unspecified; J98.4 Other disorders of lung; E07.9 Disorder of thyroid, unspecified; Z79.899 Other long term (current) drug therapy; Z79.01 Long term (current) use of anticoagulants; Z91.040 Latex allergy status

== ENCOUNTER → 2018-12-29 | Outpatient (REF) | payer MEDICARE, MEDICAID ==
[~2018-12-29] MED LIST changes: +AZIT500T5 PO; +LEVA1TAB2 PO
[2018-12-29 20:46] LABS: BASO % 0.4 % (0.0-1.0); EOS # 0.3 10^3/uL (0.0-0.50); EOS % 4.8 % (0.0-3.0); HEMATOCRIT 41.4 % (42.0-52.0); HEMOGLOBIN 13.4 g/dl (13.5-17.5); LYMPH # 0.8 10^3/uL (1.5-4.5); LYMPH % 11.8 % (24.0-44.0); MEAN CORPUSCULAR HEMOGLOBIN 31.3 pg (27.0-33.0); MEAN CORPUSCULAR HGB CONC 32.4 g/dl (32.0-36.5); MEAN CORPUSCULAR VOLUME 96.7 fl (80.0-96.0); MONO # 1.3 10^3/uL (0.0-0.8); NEUTROPHILS # 4.2 10^3/uL (1.8-7.7); NEUTROPHILS % 63.1 % (36.0-66.0); PLATELET COUNT, AUTOMATED 181 10^3/uL (150-450); RED BLOOD COUNT 4.28 10^6/uL (4.30-6.10); WHITE BLOOD COUNT 6.7 10^3/uL (4.0-10.0)
[2018-12-29 20:47] LABS: ALT/SGPT 225 U/L (12-78); BILIRUBIN,TOTAL 0.3 MG/DL (0.2-1.0); BLOOD UREA NITROGEN 15 MG/DL (7-18); CALCIUM LEVEL 8.6 MG/DL (8.8-10.2); CARBON DIOXIDE LEVEL 38 MEQ/L (21-32); CHLORIDE LEVEL 95 MEQ/L (98-107); CREATININE FOR GFR 0.78 MG/DL (0.70-1.30); FREE T4 1.26 NG/DL (0.76-1.46); GLOMERULAR FILTRATION RATE > 60.0 (>49); GLUCOSE, FASTING 108 MG/DL (70-100); SODIUM LEVEL 136 MEQ/L (136-145); TOTAL PROTEIN 6.3 GM/DL (6.4-8.2)
== END ==
LOC: M SFHCCLAY 14:38
PROVIDERS: ATTEND Family Medicine
DX: R53.81 Other malaise (principal); E03.9 Hypothyroidism, unspecified
CPT/HCPCS: 36415; 80053; 84439; 84443; 85025; G0463

== ENCOUNTER 2019-01-14 21:01 | Emergency (ER) | payer MEDICARE, MEDICAID ==
[~2019-01-14] VITALS: Ht 167.6 cm; Wt 70.5 kg
[~2019-01-14 21:01] MED LIST changes: -AZIT500T5 PO; -LEVA1TAB2 PO
[2019-01-14] MEDS ORDERED: dexameTHASONE 20 MG/5 ML VIAL (J1100) IV ONE (22:45)
[2019-01-14] MEDS ORDERED: IPRATROPIUM 0.5MG/ALBUTEROL 2.5MG INH SOL UD 3ML (DUONEB)(J7620) NEB ONE (22:45)
[2019-01-14 23:35] LABS: BASO % 0.4 % (0.0-1.0); EOS # 0.1 10^3/uL (0.0-0.5); EOS % 1.5 % (0.0-3.0); HEMATOCRIT 38.7 % (42.0-52.0); HEMOGLOBIN 12.5 g/dl (13.5-17.5); LYMPH # 0.6 10^3/uL (1.5-5.0); LYMPH % 12.7 % (24.0-44.0); MEAN CORPUSCULAR HEMOGLOBIN 31.1 pg (27.0-33.0); MEAN CORPUSCULAR HGB CONC 32.3 g/dl (32.0-36.5); MEAN CORPUSCULAR VOLUME 96.3 fl (80.0-96.0); MONO # 0.9 10^3/uL (0.0-0.8); MONO % 18.9 % (0.0-5.0); NEUTROPHILS # 3.2 10^3/uL (1.5-8.5); NEUTROPHILS % 66.3 % (36.0-66.0); PLATELET COUNT, AUTOMATED 132 10^3/uL (150-450); RED BLOOD COUNT 4.02 10^6/uL (4.30-6.10); WHITE BLOOD COUNT 4.8 10^3/uL (4.0-10.0)
[2019-01-15] LABS: BLOOD UREA NITROGEN 15 MG/DL (7-18); CALCIUM LEVEL 8.7 MG/DL (8.8-10.2); CARBON DIOXIDE LEVEL 34 MEQ/L (21-32); CHLORIDE LEVEL 98 MEQ/L (98-107); CK-MB VALUE MASS < 1.0 NG/ML (<3.6); CPK CREATINE PHOSPHOKINASE 51 U/L (39-308); CREATININE FOR GFR 0.71 MG/DL (0.70-1.30); GLOMERULAR FILTRATION RATE > 60.0 (>49); GLUCOSE, FASTING 105 MG/DL (70-100); MB/CK RELATIVE INDEX 1.96 (< OR =4); SODIUM LEVEL 137 MEQ/L (136-145); TROPONIN I < 0.02 NG/ML (< 0.10)
[2019-01-15] MEDS ORDERED: ISOVUE-370 76% 100ML VIAL (Q9967) As Ordered ONE (00:19)
--- NOTE | 2019-01-15 01:14 | REPVR ---
EXAM: CT Angiography Chest With Contrast EXAM DATE/TIME: 01/15/2019 12:11 AM CLINICAL HISTORY: 68 years old, male; Dyspnea; Additional info: Dysp TECHNIQUE: Imaging protocol: Computed tomographic angiography of the chest with intravenous contrast. 3D rendering: MIP reconstructed images were created and reviewed. Radiation optimization: All CT scans at this facility use at least one of these dose optimization techniques: automated exposure control; mA and/or kV adjustment per patient size (includes targeted exams where dose is matched to clinical indication); or iterative reconstruction. Contrast material: ISO; Contrast volume: 75 ml; Contrast route: WRIST; COMPARISON: CT ANGIO CHEST 10/25/2018 10:13 AM FINDINGS: Tubes, catheters and devices: Gastrostomy tube is incidentally noted within the stomach. Pulmonary arteries: No focal pulmonary artery filling defect to suggest acute pulmonary embolus. Aorta: No thoracic aortic aneurysm or dissection. Lungs: Pulmonary vascular/interstitial pattern does not suggest active pulmonary edema. Dependent bilateral posterior lung base atelectasis/collapse, with endobronchial filling suggesting aspiration. No identifiable mass. No evidence of metastatic disease to the lung parenchyma or concerning focal lung lesion. Bronchiectatic changes are seen in the atelectasis affected segments Pleural space: No pleural effusion or pneumothorax. Heart: No cardiac enlargement or pericardial effusion. Adrenals: Adrenal glands are normal in appearance. Lymph nodes: Small, nonspecific mediastinal nodes are present. Bones/joints: Bony structures show no acute fracture or destructive process. IMPRESSION: 1. No evidence of acute pulmonary embolus. 2. Chronic filling process in the posterior bilateral lower lobes with atelectasis/consolidation. This may be secondary to chronic aspiration. Appearance is similar to prior CT from 12/20/2018 month more extensive than on a CT from 10/25/2018. Associated bronchiectasis but more confluent compared to October 2018 Electronically signed by: Yusuf Chance On 01/15/2019 01:14:41 AM
[2019-01-15] MEDS ORDERED: PRED20TA PO (02:44)
[2019-01-15 02:49] VITALS: BP 100/51
--- NOTE | 2019-01-15 07:50 | REP ---
Clinical: Chest pain and dyspnea. Technique: PA and lateral. Comparison: 12/20/2018. Findings: Chronic elevation to the right hemidiaphragm is appreciated. Underlying elements of right basilar atelectasis/consolidation as well as left lower lobe/retrocardiac consolidation/partial collapse cannot be excluded. No pneumothorax. Visualized portions of the mediastinum and cardiac silhouette are grossly normal. Skeletal structures intact. Impression: 1. Right lower lobe atelectasis/consolidation with chronic elevation to the right hemidiaphragm. Small effusion cannot be excluded. 2. Left basilar atelectasis and retrocardiac opacity suggesting the possibility of possible left lower lobe collapse. Electronically Signed by Meir Dominguez MD 01/15/2019 07:41 A
--- NOTE | 2019-01-16 12:53 | ED PDOC ---
Post-Departure Follow-Up dr tavares faxed formal reprt of cxr and cta for fu Micha Delatorre MD Jan 16, 2019 12:53
--- NOTE | 2019-01-18 06:55 | ECGEPIP ---
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
== END 2019-01-15 02:54 | disposition home or self-care (01) ==
LOC: M ED 21:01
DX: J44.9 Chronic obstructive pulmonary disease, unspecified (principal); R91.8 Other nonspecific abnormal finding of lung field; D64.9 Anemia, unspecified; F41.9 Anxiety disorder, unspecified; M19.90 Unspecified osteoarthritis, unspecified site; Z86.19 Personal history of other infectious and parasitic diseases; Z86.711 Personal history of pulmonary embolism; Z85.89 Personal history of malignant neoplasm of other organs and systems; Z92.21 Personal history of antineoplastic chemotherapy; Z92.3 Personal history of irradiation; Z99.81 Dependence on supplemental oxygen; Z91.040 Latex allergy status; Z79.899 Other long term (current) drug therapy; Z79.01 Long term (current) use of anticoagulants
CPT/HCPCS: 71046; 71275; 80048; 82550; 82553; 84484; 85025; 93005; 94640; 96374; 99284; J1100; Q9967

== ENCOUNTER 2019-02-22 23:38 | Inpatient (IN) | payer MEDICARE, MEDICAID ==
[~2019-02-22] VITALS: Ht 167.6 cm; Wt 72.0 kg
[2019-02-23] MEDS ORDERED: methylPREDNISolone INJ 125 MG/2 ML VIAL (J2930) IV ONE
[2019-02-23] MEDS ORDERED: ACETAMINOPHEN 325 MG/10.15 ML UDC PEG ONE (00:15)
[2019-02-23 00:26] LABS: ABG BASE EXCESS 5.9 (-2.0-2.0); ABG O2 SATURATION 90.7 % (95.0-99.0); ABG PARTIAL PRESSURE CO2 58.2 mmHg (35.0-45.0); ABG PARTIAL PRESSURE O2 60.9 mmHg (75.0-100.0); ABG STANDARD HCO3 29.7 MEQ/L (22.0-26.0); ABG TOTAL CO2 34.8 MEQ/L (23.0-31.0); ABG pH (ARTERIAL) 7.372 UNITS (7.350-7.450)
[2019-02-23] MEDS: IPRATROPIUM 0.5MG/ALBUTEROL 2.5MG INH SOL UD 3ML (DUONEB)(J7620) NEB PRN ×3 (00:42→02:15)
[2019-02-23 00:43] LABS: BASO # 0.1 10^3/uL (0.0-0.2); BASO % 0.5 % (0.0-1.0); EOS # 0.1 10^3/uL (0.0-0.5); EOS % 1.3 % (0.0-3.0); HEMATOCRIT 44.7 % (42.0-52.0); HEMOGLOBIN 14.4 g/dl (13.5-17.5); LYMPH # 0.7 10^3/uL (1.5-5.0); LYMPH % 7.9 % (24.0-44.0); MEAN CORPUSCULAR HGB CONC 32.2 g/dl (32.0-36.5); MEAN CORPUSCULAR VOLUME 96.3 fl (80.0-96.0); MONO # 1.1 10^3/uL (0.0-0.8); NEUTROPHILS # 7.2 10^3/uL (1.5-8.5); NEUTROPHILS % 78.1 % (36.0-66.0); PLATELET COUNT, AUTOMATED 171 10^3/uL (150-450); RED BLOOD COUNT 4.64 10^6/uL (4.30-6.10); WHITE BLOOD COUNT 9.3 10^3/uL (4.0-10.0)
[2019-02-23 00:51] LABS: INR 1.21; PROTHROMBIN TIME 15.1 SECONDS (11.8-14.0)
[2019-02-23 01:11] LABS: INFLUENZA A AMPLIFICATION NEGATIVE (NEGATIVE); INFLUENZA B AMPLIFICATION NEGATIVE (NEGATIVE)
[2019-02-23 01:19] LABS: ALT/SGPT 73 U/L (12-78); BILIRUBIN,DIRECT 0.1 MG/DL (0.0-0.2); BILIRUBIN,TOTAL 0.6 MG/DL (0.2-1.0); BLOOD UREA NITROGEN 19 MG/DL (7-18); CALCIUM LEVEL 8.2 MG/DL (8.8-10.2); CARBON DIOXIDE LEVEL 36 MEQ/L (21-32); CHLORIDE LEVEL 98 MEQ/L (98-107); CK-MB VALUE MASS < 1.0 NG/ML (<3.6); CPK CREATINE PHOSPHOKINASE 87 U/L (39-308); CREATININE FOR GFR 0.88 MG/DL (0.70-1.30); GLOMERULAR FILTRATION RATE > 60.0 (>49); GLUCOSE, FASTING 105 MG/DL (70-100); MB/CK RELATIVE INDEX 1.15 (< OR =4); NT-PRO BNP 125 PG/ML (<125); POTASSIUM SERUM 4.8 MEQ/L (3.5-5.1); SODIUM LEVEL 135 MEQ/L (136-145); TOTAL PROTEIN 6.4 GM/DL (6.4-8.2); TROPONIN I < 0.02 NG/ML (< 0.10)
--- NOTE | 2019-02-23 02:04 | REPVR ---
PROCEDURE INFORMATION: Exam: CT Chest Without Contrast Exam date and time: 02/23/2019 12:49 AM Clinical history: 68 years old, male; Shortness of breath, fever, hypoxia TECHNIQUE: Imaging protocol: Computed tomography of the chest without contrast. 3D rendering: MIP reconstructed images were created and reviewed. Radiation optimization: All CT scans at this facility use at least one of these dose optimization techniques: automated exposure control; mA and/or kV adjustment per patient size (includes targeted exams where dose is matched to clinical indication); or iterative reconstruction. COMPARISON: CT Chest without contrast 12/20/2018 10:23 PM FINDINGS: Tubes, catheters and devices: There is a percutaneous gastrostomy tube entering into the distal body of the stomach in appropriate position. Lungs: There are secretions in the trachea, bronchus intermedius, and right lower lobe bronchus. There is chronic atelectasis and/or consolidation involving the right middle lobe, right lower lobe, and left lower lobe with associated cylindrical bronchiectasis that is similar in appearance compared to the prior CT on 12/20/2018. There are punctate calcific densities in the atelectatic segment of lung in the right lower lobe which were also present in the prior CT on 12/20/2018. Pleural space: Unremarkable. No pneumothorax. No pleural effusion. Heart: No cardiomegaly. No pericardial effusion. There are coronary artery calcifications. Mediastinum: No mediastinal mass, fluid collection, or pneumomediastinum. Aorta: There is no thoracic aortic aneurysm or intramural hematoma. There are moderate atherosclerotic calcifications. Lymph nodes: Normal. No enlarged lymph nodes. Diaphragm: There is moderate elevation of the right hemidiaphragm, which is similar in appearance compared to the prior CT on 12/20/2018. Liver: Unremarkable. No liver lesion is seen. The contour of the liver is smooth. No hepatomegaly is noted. Gallbladder and bile ducts: No calcified gallstones are seen. No gallbladder wall thickening, pericholecystic fluid, or pericholecystic inflammatory changes are identified. No dilation of the intrahepatic or extrahepatic bile ducts is noted. Pancreas: Unremarkable. No dilation of the main pancreatic duct is noted. Spleen: Unremarkable. No splenomegaly is noted. Adrenals: Normal. No adrenal mass. Kidneys: There is bilateral nonobstructive nephrolithiasis. No hydronephrosis is present. There is a 7 mm cyst in the midpole of the left kidney, which is unchanged compared to the prior CT on 12/20/2018 for which follow-up is not necessary. The inferior aspect of the left kidney was not imaged. Bones/joints: There are chronic mild anterior wedge compression fractures of T1, L1, and L2, which are similar in appearance compared to the prior CT on 12/20/2018. There is no suspicious osteolytic or osteoblastic lesion. The bones have a demineralized appearance. Soft tissues: Unremarkable. IMPRESSION: 1. Chronic atelectasis and/or consolidation involving the right middle lobe, right lower lobe, and left lower lobe with associated cylindrical bronchiectasis that is similar in appearance compared to the prior CT on 12/20/2018. 2. Chronic mild anterior wedge compression fractures of T1, L1, and L2, which are similar in appearance compared to the prior CT on 12/20/2018. 3. Moderate elevation of the right hemidiaphragm, which is similar in appearance compared to the prior CT on 12/20/2018. 4. Bilateral nonobstructive nephrolithiasis. COMMENT: Consistent with the [employer]'s Incidental Findings Committee Report (J Am Jean Radiol 2010): Unless the patient's specific circumstances suggest otherwise, any liver lesion 0.5 cm or less, any cystic kidney lesion less than 1.0 cm, and/or any adrenal lesion 1.0 cm or less not otherwise characterized in this report as possessing suspicious or indeterminate imaging features is/are highly likely to be benign and do not require follow-up imaging or biopsy. Electronically signed by: Boo Handy On 02/23/2019 02:03:46 AM
[2019-02-23] MEDS ORDERED: PIPERACILLIN/TAZOBACTAM SOD 3.375 GM in D5W MINI-BAG PLUS 50 ML IV ONE (02:15)
[2019-02-23] MEDS ORDERED: VANCOMYCIN HCL 1,000 MG, VIAL MATE ADAPTER 1 EACH in D5W 250 ML IV ONE (02:15)
[2019-02-23] MEDS ORDERED: IPRATROPIUM 0.5MG/ALBUTEROL 2.5MG INH SOL UD 3ML (DUONEB)(J7620) NEB PRN (03:15)
[2019-02-23] MEDS ORDERED: MAALOX 30 ML SUSP *UDC PO PRN (03:15)
[2019-02-23] MEDS ORDERED: MOM 30ML SUSPENSION UDC PO PRN (03:15)
[2019-02-23] MEDS ORDERED: ACETAMINOPHEN TAB 650MG DOSE (2X325MG) PO PRN (03:15)
--- NOTE | 2019-02-23 03:30 | HPEPDOC ---
General Date of Admission 02/23/19 Date of Service: Feb 23, 2019 Primary Care Physician: Eliseo Leonard Chief Complaint The patient is a 68-year-old male admitted with a reason for visit of SOB. 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 NG tube placement, COPD, history of PE on anticoagulants chronic left lower lobe infiltrate secondary to inflammation, hypothyroidism, anemia, anxiety, Lyme's disease and osteoarth ritis, presented to ED with chief complaints of increasing shortness of breath since last 2-3 days but which is progressively getting worse. Denies any fever, chest pain, nausea, vomiting, diarrhea, etc. Home Medications Scheduled Apixaban (Eliquis) 5 Mg Tablet, 5 MG FT BID, (Reported) Atorvastatin Calcium (Atorvastatin Calcium) 40 Mg Tablet, 40 MG FT QHS, (Reported) Escitalopram Oxalate (Escitalopram Oxalate) 10 Mg Tab, 10 MG FT DAILY, (Reported) Levothyroxine Sodium (Levothyroxine Sodium) 100 Mcg Tab, 100 MCG FT DAILY, (Reported) Scheduled PRN Oxycodone Hcl (Oxycodone HCl) 15 Mg Tablet, 15 MG FT Q4H PRN for PAIN, (Reported) Allergies Coded Allergies: latex (Verified Allergy, Intermediate, hives, 02/23/19) Past Medical History Medical History Tonsillar carcinoma status post chemoradiation, esophageal stricture secondary to radiation, status post dilation. NG tube placement, COPD, pulmonary embolus on anticoagulation, chronic left lower lobe infiltrate secondary to inflammation, hypothyroidism, anemia, anxiety, Lyme's disease, osteoarthritis Surgical History Cystoscopy, transbronchial biopsy for chronic left lower lobe infiltrate and right hand surgery. Also G-tube placed. Which has been replaced. 3-4 times and hernia repair Family History Significant Family History: No pertinent family hx Social History * Smoker: former Smoker Alcohol: Denies Drugs: denies A-FIB/CHADSVASC A-FIB History Current/History of A-Fib/PAF?: Yes Current PO Anticoag Therapy: Yes Review of Systems Constitutional: Denies: Chills, Fever, Malaise, Night Sweats, Weakness, Fatigue, Weight Loss, Lethargy, Other Eyes: Denies: Pain, Vision change, Conjunctivae inflammation, Eyelid inflammation, Redness, Other ENT: Denies: Head Aches, Ear Pain, Dysphagia, Sinus Congestion, Post Nasal Drip, Sore Throat, Epistaxis, Other Symptoms Skin: Denies: Rash, Lesions, Jaundice, Bruising, Itching, Dry, Breakdown, Nail Changes, Other Pulmonary: Reports: Dyspnea Cardiovascular: Denies: Chest Pain, Palpitations, Orthopnea, Paroxysmal Noc. Dyspnea, Edema, Lt Headedness, Other Symptoms Gastrointestinal: Denies: Nausea, Vomiting, Abdominal Pain, Diarrhea, Constipation, Melena, Hematochezia, Other Symptoms Genitourinary: Denies: Dysuria, Frequency, Incontinence, Hematuria, Retention, Other Symptoms Hematologic: Denies: Bruising, Bleeding Excessively, Petecchia, Purpura, Enlarged Lymph Nodes, Other Hematologic Endocrine: Denies: Polydipsia, Polyphagia, Polyuria, Heat Intolerance, Cold Intolerance, Other Endocrine Sx Musculoskeletal: Denies: Neck Pain, Back Pain, Shoulder Pain, Arm Pain, Hand Pain, Leg Pain, Foot Pain, Joint Pain, Muscle Pain, Spasms, Other Symptoms Neurological: Denies: Weakness, Numbness, Incoordination, Change in speech, Confusion, Seizures, Other Symptoms Psych: Denies: Mood Normal, Anxiety, Depression, Memory Issues, Thoughts of Self Harm, Anger, Thoughts of Harming Other, Other Psych Physical Examination General Exam: Positive: Alert, Cooperative Eye Exam: Positive: PERRLA, Conjunctiva & lids normal ENT Exam: Positive: Atraumatic, Mucous membr. moist/pink Neck Exam: Positive: JVD Chest Exam: Positive: Diminished Heart Exam: Positive: Rate Normal, Normal S1, Normal S2 Abdomen Exam: Positive: Normal bowel sounds, Soft Extremity Exam: Positive: Normal pulses Skin Exam: Positive: Nl turgor and temperature Neuro Exam: Positive: Strength at 5/5 X4 ext, Sensation Intact, Cranial Nerves 3-12 NL Psych Exam: Positive: Mental status NL, Mood NL, Oriented x 3 Vital Signs Vital Signs Date Time Temp Pulse Resp B/P (MAP) Pulse Ox O2 Delivery O2 Flow Rate FiO2 02/23/19 03:07 99.2 67 22 112/60 (77) 95 Nasal Cannula 4.0 Laboratory Data Labs 24H Laboratory Tests 2 02/23/19 00:19: Blood Gas Bicarbonate Standard 29.7H, Arterial Blood pH 7.372, Arterial Blood Partial Pressure CO2 58.2H, Arterial Blood Partial Pressure O2 60.9L, Arterial Blood Total CO2 34.8H, Arterial Blood HCO3 33.0H, Arterial Blood Base Excess 5.9H, Arterial Blood Oxygen Saturation 90.7L 02/23/19 00:23: Lactic Acid Level 1.7, Influenza Type A (RT-PCR) NEGATIVE, Influenza Type B (RT- PCR) NEGATIVE 02/23/19 00:24: Immature Granulocyte % (Auto) 0.2, Neutrophils (%) (Auto) 78.1H, Lymphocytes (%) (Auto) 7.9L, Monocytes (%) (Auto) 12.0H, Eosinophils (%) (Auto) 1.3, Basophils (%) (Auto) 0.5, Neutrophils # (Auto) 7.2, Lymphocytes # (Auto) 0.7L, Monocytes # (Auto) 1.1H, Eosinophils # (Auto) 0.1, Basophils # (Auto) 0.1, Nucleated Red Blo od Cells % (auto) 0.0, Prothrombin Time 15.1H, Prothromb Time International Ratio 1.21, Anion Gap 1L, Glomerular Filtration Rate > 60.0, Calcium Level 8.2L, Total Bilirubin 0.6, Direct Bilirubin 0.1, Aspartate Amino Transf (AST/SGOT) 47H, Alanine Aminotransferase (ALT/SGPT) 73, Alkaline Phosphatase 96, Total Creatine Kinase 87, Creatine Kinase MB < 1.0, Creatine Kinase MB Relative Index 1.15, Troponin I < 0.02, OZ-Xwv-L-Type Natriuretic Peptide 125, Total Protein 6.4, Albumin 3.0L, Albumin/Globulin Ratio 0.88L, Thyroid Stimulating Hormone (TSH) 2.320 CBC/BMP Laboratory Tests 02/23/19 00:24 Microbiology Microbiology 02/23/19 Blood Culture, Received Pending 02/23/19 Blood Culture, Received Pending Problems (1) COPD (chronic obstructive pulmonary disease) Status: Chronic Problem Text: 67 years old white male with past medical history of COPD, h ypothyroidism, anxiety, anemia, Lyme's disease, osteoarthritis, tonsillar increase of tonsillar carcinoma and cervical strictures, chronic lung infiltrates secondary to inflammation, came in with chief complaint of increasing shortness of breath since last 2-3 days which is progressively getting worse. He is likely to exacerbation of his COPD. CT chest, again consistent with chronic infiltration of his lungs, which is old in nature and not changed from the previous CT of the chest, so there is no evidence of acute pneumonia at the present time Admitted to [facility] floor DuoNeb every 6 hours and every 2 hours when necessary Solu-Medrol 60 mg IV every 8 hours sputum cultures and sensitivity and Gram stain Blood for pro calcitonin to rule out bacterial infection O2 support Continue home meds DVT prophylaxis not needed as patient is already on anticoagulants Activity as tolerated Heart regular (2) Abnormal CT scan, chest Status: Chronic Problem Text: Patient's CT scan shows; 1. Chronic atelectasis and/or consolidation involving the right middle lobe, right lower lobe, and left lower lobe with associated cylindrical bronchiectasis that is similar in appearance compared to the prior CT on 12/20/2018. 2. Chronic mild anterior wedge compression fractures of T1, L1, and L2, which are similar in appearance compared to the prior CT on 12/20/2018. 3. Moderate elevation of the right hemidiaphragm, which is similar in appearance compared to the prior CT on 12/20/2018. 4. Bilateral nonobstructive nephrolithiasis. Is no evidence of any new pneumonia as patient has the chronic atelectasis conso lidation and infiltrates, right middle lobe, right lower lobe and left lower lobe where he had a extensive workup done in the past and has been negative shows only evidence of inflammation. Patient did receive a IV Zosyn and vancomycin will discontinue both as there is no need for IV antibiotics Seen on Procrit calcitonin has been ordered to confirm lack of any bacterial infection at the present time (3) Hypothyroidism Status: Chronic Problem Text: Continue home meds (4) Esophageal abnormality Status: Acute Problem Text: Continue home meds Plan / VTE VTE Prophylaxis Ordered?: Yes DOMI PETIT MD Feb 23, 2019 03:30
[2019-02-23] MEDS ORDERED: PILL CUTTER 1 EACH XX ONE (03:42)
[2019-02-23] MEDS: oxyCODONE 5MG TAB PO PRN ×4 (03:58→20:42)
[2019-02-23 05:05] VITALS: BP 97/63
[2019-02-23] MEDS: LEVOTHYROXINE 100MCG TABLET (0.1MG) PO SCH (05:42)
[2019-02-23] MEDS: IPRATROPIUM 0.5MG/ALBUTEROL 2.5MG INH SOL UD 3ML (DUONEB)(J7620) NEB SCH ×3 (07:29→20:56)
--- NOTE | 2019-02-23 08:15 | REP ---
Chest x-ray: Two views. History: Shortness of breath. Hypoxia and fever. Comparison study: January 14, 2019. Findings: There is moderate elevation of the right hemidiaphragm again noted. Monitoring electrodes are seen. There is discoid atelectasis again noted in the left base somewhat improved from December 20, 2018. There is improved aeration in the left lower lobe behind the heart today compared with the January 14, 2019 study. Some residual fibrosis or atelectasis is seen in the left lower lobe. There is slight blunting of the right lateral and both posterior pleural angles indicating small quantities of pleural fluid. Impression: Improved aeration left base. Elevated right hemidiaphragm again noted. Slight blunting of the pleural angles bilaterally. Electronically Signed by Gunenr Camara MD 02/23/2019 01:42 P
[2019-02-23] MEDS ORDERED: methylPREDNISolone INJ 125 MG/2 ML VIAL (J2930) IV SCH ×2 (09:00→18:00)
[2019-02-23] MEDS: APIXABAN 5 MG TAB (ELIQUIS) FT SCH ×2 (09:21→20:41)
[2019-02-23] MEDS: DOCUSATE SOD LIQ 100MG/10ML UDC FT SCH ×2 (09:21→20:41)
[2019-02-23] MEDS: ESCITALOPRAM OXALATE 10 MG TAB (LEXAPRO) FT SCH (09:21)
--- NOTE | 2019-02-23 09:42 | ECGEPIP ---
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
[2019-02-23 14:00] VITALS: BP 105/60
--- NOTE | 2019-02-23 14:31 | IPNPDOC ---
Date Seen The patient was seen on 02/23/19. Progress Note SUBJECTIVE: Patient reported feeling fine without significant discomfort. Saturation noted to drop into 80s with ambulation requiring O2 to turn up to 4L. Afebrile overnight. WBC 9.3. OBJECTIVE PHYSICAL EXAMINATION: VITAL SIGNS: Please see below. General: No acute distress, Alert Eyes: Normal sclera, EOMI HENT: Atraumatic Cardiovascular: Normal rate Pulmonary: Clear to auscultation, decrease air entry b/l. GI: Soft, nontender, nondistended Skin: Warm and dry Neuro: CN grossly intact. No focal deficits. Strengths equal b/l. LABORATORY DATA, IMAGING STUDIES, MICROBIOLOGY: Please see below. DVT prophylaxis ordered?: On Eliquis ASSESSMENT AND PLAN: 1.COPD Exacerbation in setting of chronic respiratory failure - c/w steroids, nebs, abx. 2L home O2. - Requirement increased to 4L after ambulation at one point. - O2 support as needed, titrate to maintain sat >92%. - CT chest with chronic atelectasis, relatively unchanged from prior. 2. Hypothyroidism - c/w home dose synthroid. 3. Esophageal ca/dysmotility - NPO with feed through tube feed. - Continue. 4. hx PE - c/w Eliquis. VS, I&O, 24H, Fishbone Vital Signs/I&O Vital Signs Date Time Temp Pulse Resp B/P (MAP) Pulse Ox O2 Delivery O2 Flow Rate FiO2 02/23/19 10:00 14 2.0 02/23/19 05:05 98.9 72 97/63 (74) 93 02/23/19 04:03 Nasal Cannula I&O- Last 24 Hours up to 6 AM 02/23/19 06:00 Intake Total 320 ml Output Total 0 ml Balance 320 ml Laboratory Data 24H LABS Laboratory Tests 2 02/23/19 00:19: Blood Gas Bicarbonate Standard 29.7H, Arterial Blood pH 7.372, Arterial Blood Partial Pressure CO2 58.2H, Arterial Blood Partial Pressure O2 60.9L, Arterial Blood Total CO2 34.8H, Arterial Blood HCO3 33.0H, Arterial Blood Base Excess 5.9H, Arterial Blood Oxygen Saturation 90.7L 02/23/19 00:23: Lactic Acid Level 1.7, Influenza Type A (RT-PCR) NEGATIVE, Influenza Type B (RT- PCR) NEGATIVE 02/23/19 00:24: Immature Granulocyte % (Auto) 0.2, Neutrophils (%) (Auto) 78.1H, Lymphocytes (%) (Auto) 7.9L, Monocytes (%) (Auto) 12.0H, Eosinophils (%) (Auto) 1.3, Basophils (%) (Auto) 0.5, Neutrophils # (Auto) 7.2, Lymphocytes # (Auto) 0.7L, Monocytes # (Auto) 1.1H, Eosinophils # (Auto) 0.1, Basophils # (Auto) 0.1, Nucleated Red Blood Cells % (auto) 0.0, Prothrombin Time 15.1H, Prothromb Time International Ratio 1.21, Anion Gap 1L, Glomerular Filtration Rate > 60.0, Calcium Level 8.2L, Total Bilirubin 0.6, Direct Bilirubin 0.1, Aspartate Amino Transf (AST/SGOT) 47H, Alanine Aminotransferase (ALT/SGPT) 73, Alkaline Phosphatase 96, Total Creatine Kinase 87, Creatine Kinase MB < 1.0, Creatine Kinase MB Relative Index 1.15, Troponin I < 0.02, CX-Cwm-L-Type Natriuretic Peptide 125, Total Protein 6.4, Albumin 3.0L, Albumin/Globulin Ratio 0.88L, Thyroid Stimulating Hormone (TSH) 2.320 02/23/19 09:11: CBC/BMP Laboratory Tests 02/23/19 00:24 Microbiology Microbiology 02/23/19 Blood Culture, Received Pending 02/23/19 Blood Culture, Received Pending MARCOS MOBLEY MD Feb 23, 2019 14:31
[2019-02-23] MEDS: AZITHROMYCIN INJ 500 MG, VIAL MATE ADAPTER 1 EACH in D5W 250 ML IV SCH (17:53)
[2019-02-23] MEDS: ATORVASTATIN 20 MG TAB PO SCH (20:42)
[2019-02-23 22:00] VITALS: BP 101/63
[2019-02-24] MEDS: oxyCODONE 5MG TAB PO PRN ×6 (00:51→23:07)
[2019-02-24] MEDS: IPRATROPIUM 0.5MG/ALBUTEROL 2.5MG INH SOL UD 3ML (DUONEB)(J7620) NEB SCH ×3 (02:00→20:00)
[2019-02-24] MEDS: LEVOTHYROXINE 100MCG TABLET (0.1MG) PO SCH (05:46)
[2019-02-24 06:00] VITALS: BP 98/62
[2019-02-24 06:17] LABS: HEMOGLOBIN 13.5 g/dl (13.5-17.5); MEAN CORPUSCULAR HEMOGLOBIN 30.8 pg (27.0-33.0); MEAN CORPUSCULAR HGB CONC 32.9 g/dl (32.0-36.5); MEAN CORPUSCULAR VOLUME 93.4 fl (80.0-96.0); PLATELET COUNT, AUTOMATED 137 10^3/uL (150-450); RED BLOOD COUNT 4.39 10^6/uL (4.30-6.10); WHITE BLOOD COUNT 23.2 10^3/uL (4.0-10.0)
[2019-02-24 06:44] LABS: BLOOD UREA NITROGEN 22 MG/DL (7-18); CALCIUM LEVEL 8.9 MG/DL (8.8-10.2); CARBON DIOXIDE LEVEL 35 MEQ/L (21-32); CHLORIDE LEVEL 94 MEQ/L (98-107); CREATININE FOR GFR 0.92 MG/DL (0.70-1.30); GLOMERULAR FILTRATION RATE > 60.0 (>49); GLUCOSE, FASTING 223 MG/DL (70-100); POTASSIUM SERUM 4.4 MEQ/L (3.5-5.1); SODIUM LEVEL 131 MEQ/L (136-145)
[2019-02-24] MEDS: ESCITALOPRAM OXALATE 10 MG TAB (LEXAPRO) FT SCH (09:55)
[2019-02-24] MEDS: DOCUSATE SOD LIQ 100MG/10ML UDC FT SCH ×2 (09:55→21:42)
[2019-02-24] MEDS: APIXABAN 5 MG TAB (ELIQUIS) FT SCH ×2 (09:55→21:42)
[2019-02-24] MEDS: methylPREDNISolone INJ 125 MG/2 ML VIAL (J2930) IV SCH ×2 (09:56→21:42)
[2019-02-24 10:00] VITALS: BP 116/68
[2019-02-24 14:00] VITALS: BP 110/62
[2019-02-24] MEDS: AZITHROMYCIN INJ 500 MG, VIAL MATE ADAPTER 1 EACH in D5W 250 ML IV SCH (17:40)
[2019-02-24 18:00] VITALS: BP 139/96
--- NOTE | 2019-02-24 19:57 | IPNPDOC ---
Date Seen The patient was seen on 02/24/19. Progress Note SUBJECTIVE: Patient reported feeling much better today and think that he is close to his baseline. Afebrile overnight. WBC 23 but patient did get a large dose of solumedrol. Saturating well on 2L NC. OBJECTIVE PHYSICAL EXAMINATION: VITAL SIGNS: Please see below. General: No acute distress, Alert Eyes: Normal sclera, EOMI HENT: Atraumatic Cardiovascular: Normal rate Pulmonary: mild bibasilar crackles, good air entry b/l. GI: Soft, nontender, nondistended Skin: Warm and dry Neuro: CN grossly intact. No focal deficits. Strengths equal b/l. LABORATORY DATA, IMAGING STUDIES, MICROBIOLOGY: Please see below. DVT prophylaxis ordered?: On Eliquis ASSESSMENT AND PLAN: 1.COPD Exacerbation in setting of chronic respiratory failure - c/w steroids, nebs, abx. 2L home O2. Titrate steroids. - Requirement increased to 4L after ambulation at one point. - O2 support as needed, titrate to maintain sat >92%. - CT chest with chronic atelectasis, relatively unchanged from prior. 2. Hypothyroidism - c/w home dose synthroid. 3. Esophageal ca/dysmotility - NPO with feed through tube feed. - Continue. 4. hx PE - c/w Eliquis. VS, I&O, 24H, Fishbone Vital Signs/I&O Vital Signs Date Time Temp Pulse Resp B/P (MAP) Pulse Ox O2 Delivery O2 Flow Rate FiO2 02/24/19 19:01 19 02/24/19 18:00 97.8 118 139/96 (110) 93 02/24/19 14:05 Nasal Cannula 2.0 I&O- Last 24 Hours up to 6 AM 02/24/19 06:00 Intake Total 2004.25 ml Output Total 0 ml Balance 2004.25 ml Laboratory Data 24H LABS Laboratory Tests 2 02/24/19 05:42: Nucleated Red Blood Cells % (auto) 0.0, Anion Gap 2L, Glomerular Filtration Rate > 60.0, Calcium Level 8.9 CBC/BMP Laboratory Tests 02/24/19 05:42 Microbiology Microbiology 02/24/19 Gram Stain - Final, Resulted 02/24/19 Sputum Culture, Resulted Pending 02/23/19 Blood Culture - Preliminary, Resulted No growth after 24 hours . All specim... 02/23/19 Blood Culture - Preliminary, Resulted No growth after 24 hours . All specim... MARCOS MOBLEY MD Feb 24, 2019 19:57
[2019-02-24] MEDS: ATORVASTATIN 20 MG TAB PO SCH (21:42)
[2019-02-24 22:00] VITALS: BP 113/69
[2019-02-25] MEDS: IPRATROPIUM 0.5MG/ALBUTEROL 2.5MG INH SOL UD 3ML (DUONEB)(J7620) NEB SCH ×4 (02:00→20:20)
[2019-02-25] MEDS: oxyCODONE 5MG TAB PO PRN ×5 (03:04→22:14)
[2019-02-25 06:00] VITALS: BP 109/67
[2019-02-25] MEDS: LEVOTHYROXINE 100MCG TABLET (0.1MG) PO SCH (06:59)
[2019-02-25 07:06] LABS: HEMATOCRIT 36.7 % (42.0-52.0); HEMOGLOBIN 12.1 g/dl (13.5-17.5); MEAN CORPUSCULAR HEMOGLOBIN 30.3 pg (27.0-33.0); MEAN CORPUSCULAR VOLUME 91.8 fl (80.0-96.0); PLATELET COUNT, AUTOMATED 122 10^3/uL (150-450); WHITE BLOOD COUNT 26.3 10^3/uL (4.0-10.0)
[2019-02-25 07:32] LABS: BLOOD UREA NITROGEN 19 MG/DL (7-18); CALCIUM LEVEL 8.7 MG/DL (8.8-10.2); CARBON DIOXIDE LEVEL 33 MEQ/L (21-32); CHLORIDE LEVEL 98 MEQ/L (98-107); CREATININE FOR GFR 0.83 MG/DL (0.70-1.30); GLOMERULAR FILTRATION RATE > 60.0 (>49); GLUCOSE, FASTING 202 MG/DL (70-100); POTASSIUM SERUM 4.1 MEQ/L (3.5-5.1); SODIUM LEVEL 134 MEQ/L (136-145)
[2019-02-25] MEDS: DOCUSATE SOD LIQ 100MG/10ML UDC FT SCH ×2 (08:12→21:00)
[2019-02-25] MEDS: ESCITALOPRAM OXALATE 10 MG TAB (LEXAPRO) FT SCH (08:12)
[2019-02-25] MEDS: APIXABAN 5 MG TAB (ELIQUIS) FT SCH ×2 (08:12→22:11)
[2019-02-25] MEDS: methylPREDNISolone INJ 125 MG/2 ML VIAL (J2930) IV SCH (08:12)
[2019-02-25] MEDS ORDERED: methylPREDNISolone INJ 125 MG/2 ML VIAL (J2930) IV ONE (09:00)
[2019-02-25 10:55] VITALS: BP 140/90
--- NOTE | 2019-02-25 13:41 | IPNPDOC ---
Date Seen The patient was seen on 02/25/19. Progress Note SUBJECTIVE: Patient reported feeling much better also with no complaints today. Saturating well on 2L NC. WBC 23->26 has been on IV steroids. OBJECTIVE PHYSICAL EXAMINATION: VITAL SIGNS: Please see below. General: No acute distress, Alert Eyes: Normal sclera, EOMI HENT: Atraumatic Cardiovascular: Normal rate Pulmonary: mild bibasilar crackles, good air entry b/l. GI: Soft, nontender, nondistended Skin: Warm and dry Neuro: CN grossly intact. No focal deficits. Strengths equal b/l. LABORATORY DATA, IMAGING STUDIES, MICROBIOLOGY: Please see below. DVT prophylaxis ordered?: On Eliquis ASSESSMENT AND PLAN: 1.COPD Exacerbation in setting of chronic respiratory failure - c/w steroids, nebs, abx. 2L home O2. Titrate steroids. - Requirement increased to 4L after ambulation at one point. - O2 support as needed, titrate to maintain sat >92%. - CT chest with chronic atelectasis, relatively unchanged from prior. 2. Hypothyroidism - c/w home dose synthroid. 3. Esophageal ca/dysmotility - NPO with feed through tube feed. - Continue. 4. hx PE - c/w Eliquis. Tentatively discharge tomorrow when transitioned to PO prednisone VS, I&O, 24H, Fishbone Vital Signs/I&O Vital Signs Date Time Temp Pulse Resp B/P (MAP) Pulse Ox O2 Delivery O2 Flow Rate FiO2 02/25/19 13:04 18 Nasal Cannula 2.0 02/25/19 10:55 98.1 96 140/90 (107) 96 I&O- Last 24 Hours up to 6 AM 02/25/19 06:00 Intake Total 1300 ml Balance 1300 ml Laboratory Data 24H LABS Laboratory Tests 2 02/25/19 06:49: Nucleated Red Blood Cells % (auto) 0.0, Anion Gap 3L, Glomerular Filtration Rate > 60.0, Calcium Level 8.7L CBC/BMP Laboratory Tests 02/25/19 06:49 Microbiology Microbiology 02/24/19 Gram Stain - Final, Resulted 02/24/19 Sputum Culture, Resulted Pending 02/23/19 Blood Culture - Preliminary, Resulted No Growth after 48 hours. All Specime... 02/23/19 Blood Culture - Preliminary, Resulted No Growth after 48 hours. All Specime... MARCOS MOBLEY MD Feb 25, 2019 13:41
[2019-02-25 13:54] VITALS: BP 120/71
[2019-02-25] MEDS: AZITHROMYCIN INJ 500 MG, VIAL MATE ADAPTER 1 EACH in D5W 250 ML IV SCH (17:18)
[2019-02-25 18:16] VITALS: BP 119/72
[2019-02-25 22:00] VITALS: BP 126/77
[2019-02-25] MEDS: ATORVASTATIN 20 MG TAB PO SCH (22:12)
[2019-02-26] MEDS: IPRATROPIUM 0.5MG/ALBUTEROL 2.5MG INH SOL UD 3ML (DUONEB)(J7620) NEB SCH ×2 (01:42→08:00)
[2019-02-26] MEDS: oxyCODONE 5MG TAB PO PRN ×3 (02:36→11:40)
[2019-02-26] MEDS: LEVOTHYROXINE 100MCG TABLET (0.1MG) PO SCH (05:50)
[2019-02-26 06:00] VITALS: BP 111/66
[2019-02-26 08:20] LABS: HEMATOCRIT 38.1 % (42.0-52.0); HEMOGLOBIN 12.5 g/dl (13.5-17.5); MEAN CORPUSCULAR HEMOGLOBIN 30.2 pg (27.0-33.0); MEAN CORPUSCULAR HGB CONC 32.8 g/dl (32.0-36.5); PLATELET COUNT, AUTOMATED 119 10^3/uL (150-450); RED BLOOD COUNT 4.14 10^6/uL (4.30-6.10); WHITE BLOOD COUNT 14.8 10^3/uL (4.0-10.0)
[2019-02-26 08:47] LABS: BLOOD UREA NITROGEN 16 MG/DL (7-18); CALCIUM LEVEL 8.9 MG/DL (8.8-10.2); CARBON DIOXIDE LEVEL 33 MEQ/L (21-32); CHLORIDE LEVEL 101 MEQ/L (98-107); CREATININE FOR GFR 0.73 MG/DL (0.70-1.30); GLOMERULAR FILTRATION RATE > 60.0 (>49); GLUCOSE, FASTING 100 MG/DL (70-100); POTASSIUM SERUM 3.4 MEQ/L (3.5-5.1); SODIUM LEVEL 137 MEQ/L (136-145)
[2019-02-26] MEDS ORDERED: predniSONE 20 MG TAB PO SCH (09:00)
[2019-02-26] MEDS: DOCUSATE SOD LIQ 100MG/10ML UDC FT SCH ×2 (09:00→09:40)
[2019-02-26] MEDS: APIXABAN 5 MG TAB (ELIQUIS) FT SCH (09:41)
[2019-02-26] MEDS: ESCITALOPRAM OXALATE 10 MG TAB (LEXAPRO) FT SCH (09:42)
[2019-02-26] MEDS ORDERED: POTASSIUM CHLORIDE 10 MEQ SR TABLET PO ONE (10:00)
[2019-02-26] MEDS ORDERED: AZIT500T5 PO (11:19)
[2019-02-26] MEDS ORDERED: PRED20TA PO (11:19)
--- NOTE | 2019-02-26 11:30 | DS.PDOC ---
Discharge Summary General Date of Admission Feb 23, 2019 at 03:08 Date of Discharge 02/27/20 Discharge Summary PROCEDURES PERFORMED DURING STAY: [None]. ADMITTING DIAGNOSES: 1. COPD exacerbation 2. Hypothyroidism 3. hx PE DISCHARGE DIAGNOSES: 1. COPD exacerbation 2. Hypothyroidism 3. hx PE COMPLICATIONS/CHIEF COMPLAINT: COPD. 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 NG tube placement, COPD, history of PE on anticoagulants chronic left lower lobe infiltrate secondary to inflammation, hypothyroidism, anemia, anxiety, Lyme's disease and osteoarthritis, presented to ED with chief complaints of increasing shortness of breath since last 2-3 days but which is progressively getting worse. Denies any fever, chest pain, nausea, vomiting, diarrhea, etc." HOSPITAL COURSE: Patient was treated with steroids, nebs and antibiotics with progressive improvement through course of admission. Reportedly had a drop of sat during ambulation at one point requiring O2 to turn up to 4L but has since been stable and back at baseline. Patient reports feeling well and denies any SOB wanting to go home. Will discharge patient home to f/u with PMD and take one more day of prednisone. Sputum culture grew Pseudomonas- prescribed Levaquin for 5 days. Son notified. DISCHARGE MEDICATIONS: Please see below. ALLERGIES: Please see below. PHYSICAL EXAMINATION ON DISCHARGE: VITAL SIGNS: Please see below. General: No acute distress, Alert Eyes: Normal sclera, EOMI HENT: Atraumatic Cardiovascular: Normal rate Pulmonary: mild bibasilar crackles, good air entry b/l. GI: Soft, nontender, nondistended Skin: Warm and dry Neuro: CN grossly intact. No focal deficits. Strengths equal b/l. LABORATORY DATA: Please see below. IMAGING: CXR- Impression: Improved aeration left base. Elevated right hemidiaphragm again noted. Slight blunting of the pleural angles bilaterally. Chest CT- IMPRESSION: 1. Chronic atelectasis and/or consolidation involving the right middle lobe, right lower lobe, and left lower lobe with associated cylindrical bronchiectasis that is similar in appearance compared to the prior CT on 12/20/2018. 2. Chronic mild anterior wedge compression fractures of T1, L1, and L2, which are similar in appearance compared to the prior CT on 12/20/2018. 3. Moderate elevation of the right hemidiaphragm, which is similar in appearance compared to the prior CT on 12/20/2018. 4. Bilateral nonobstructive nephrolithiasis. ACTIVITY: [As tolerated]. DIET: Regular DISCHARGE PLAN: Complete course of steroids and Abx f/u PMD within 1 week DISPOSITION: Home. DISCHARGE INSTRUCTIONS: Complete course of steroids and Abx f/u PMD within 1 week ITEMS TO FOLLOWUP ON ON OUTPATIENT: none DISCHARGE CONDITION: [Stable]. TIME SPENT ON DISCHARGE: 33 minutes. Vital Signs/I&Os Vital Signs Date Time Temp Pulse Resp B/P (MAP) Pulse Ox O2 Delivery O2 Flow Rate FiO2 02/26/19 09:00 2.0 02/26/19 07:50 16 02/26/19 06:48 Nasal Cannula 02/26/19 06:00 98.7 73 111/66 (81) 95 I&O- Last 24 Hours up to 6 AM 02/26/19 06:00 Intake Total 1250 ml Output Total 400 ml Balance 850 ml Laboratory Data Labs 24H Laboratory Tests 2 02/26/19 07:38: Nucleated Red Blood Cells % (auto) 0.0, Anion Gap 3L, Glomerular Filtration Rate > 60.0, Calcium Level 8.9 CBC/BMP Laboratory Tests 02/26/19 07:38 Microbiology Microbiology 02/24/19 Gram Stain - Final, Complete 02/24/19 Sputum Culture - Final, Complete Pseudomonas Aeruginosa Corynebacterium Species 02/23/19 Blood Culture - Preliminary, Resulted No Growth after 72 hours. All specime... 02/23/19 Blood Culture - Preliminary, Resulted No Growth after 72 hours. All specime... Discharge Medications Scheduled Apixaban (Eliquis) 5 Mg Tablet, 5 MG FT BID, (Reported) Atorvastatin Calcium (Atorvastatin Calcium) 40 Mg Tablet, 40 MG FT QHS, (Reported) Escitalopram Oxalate (Escitalopram Oxalate) 10 Mg Tab, 10 MG FT DAILY, (Rep orted) Levofloxacin (Levaquin) 500 Mg Tablet, 500 MG PO DAILY Levothyroxine Sodium (Levothyroxine Sodium) 100 Mcg Tab, 100 MCG FT DAILY, (Reported) Prednisone (Prednisone) 20 Mg Tablet, 40 MG PO DAILY Take on 02/27/19 Scheduled PRN Oxycodone Hcl (Oxycodone HCl) 15 Mg Tablet, 15 MG FT Q4H PRN for PAIN, (Reported) Allergies Coded Allergies: latex (Verified Allergy, Intermediate, hives, 02/23/19) MARCOS MOBLEY MD Feb 26, 2019 11:30
[2019-02-26] MEDS ORDERED: LEVA1TAB2 PO (11:31)
== END 2019-02-26 12:30 | disposition home health service (06) | DRG 191 ==
LOC: M ED 23:38 → M ED INP 02-23 03:08 → M MSPAV 02-23 04:53
PROVIDERS: ADMIT Internal Medicine; ATTEND Student in an Organized Health Care Education/Training Program
DX: J44.1 Chronic obstructive pulmonary disease with (acute) exacerbation (principal); J96.11 Chronic respiratory failure with hypoxia; Z85.01 Personal history of malignant neoplasm of esophagus; E03.9 Hypothyroidism, unspecified; Z79.01 Long term (current) use of anticoagulants; Z86.711 Personal history of pulmonary embolism; F41.9 Anxiety disorder, unspecified; M19.90 Unspecified osteoarthritis, unspecified site; Z79.899 Other long term (current) drug therapy; Z91.040 Latex allergy status; Z85.818 Personal history of malignant neoplasm of other sites of lip, oral cavity, and pharynx; K22.2 Esophageal obstruction

== ENCOUNTER 2019-05-19 | Inpatient (IN) | payer MEDICARE, MEDICAID ==
[~2019-05-19] VITALS: Ht 167.6 cm; Wt 75.6 kg
[2019-05-19] VITALS (11 sets, daily range): BP systolic 119–129; BP diastolic 56–71; O2SAT 97–100
[~2019-05-19] MED LIST changes: +AZIT500T5 PO; +LEVA1TAB2 PO
[2019-05-19 00:55] LABS: BASO # 0.1 10^3/uL (0.0-0.2); BASO % 0.5 % (0.0-1.0); EOS # 0.2 10^3/uL (0.0-0.5); EOS % 1.7 % (0.0-3.0); HEMOGLOBIN 13.4 g/dl (13.5-17.5); LYMPH # 0.5 10^3/uL (1.5-5.0); LYMPH % 5.4 % (24.0-44.0); MEAN CORPUSCULAR HEMOGLOBIN 30.7 pg (27.0-33.0); MEAN CORPUSCULAR HGB CONC 30.5 g/dl (32.0-36.5); MEAN CORPUSCULAR VOLUME 100.9 fl (80.0-96.0); MONO % 10.1 % (0.0-5.0); NEUTROPHILS # 7.7 10^3/uL (1.5-8.5); NEUTROPHILS % 81.9 % (36.0-66.0); PLATELET COUNT, AUTOMATED 122 10^3/uL (150-450); RED BLOOD COUNT 4.36 10^6/uL (4.30-6.10); WHITE BLOOD COUNT 9.4 10^3/uL (4.0-10.0)
[2019-05-19] MEDS ORDERED: guaiFENesin ER 600 MG TAB PO ONE (01:00)
[2019-05-19] MEDS ORDERED: IPRATROPIUM 0.5MG/ALBUTEROL 2.5MG INH SOL UD 3ML (DUONEB)(J7620) NEB ONE ×2 (01:00→03:00)
[2019-05-19 01:13] LABS: BLOOD UREA NITROGEN 13 MG/DL (7-18); CALCIUM LEVEL 8.5 MG/DL (8.8-10.2); CARBON DIOXIDE LEVEL 35 MEQ/L (21-32); CHLORIDE LEVEL 96 MEQ/L (98-107); CK-MB VALUE MASS < 1.0 NG/ML (<3.6); CPK CREATINE PHOSPHOKINASE 47 U/L (39-308); CREATININE FOR GFR 0.76 MG/DL (0.70-1.30); GLOMERULAR FILTRATION RATE > 60.0 (>49); GLUCOSE, FASTING 114 MG/DL (70-100); MB/CK RELATIVE INDEX 2.13 (< OR =4); POTASSIUM SERUM 4.4 MEQ/L (3.5-5.1); SODIUM LEVEL 137 MEQ/L (136-145); TROPONIN I 0.05 NG/ML (< 0.10)
--- NOTE | 2019-05-19 03:12 | HPEPDOC ---
[facility] Medical History & Physical Date of Admission May 19, 2019 Date of Service: May 19, 2019 Attending Physician: ALFIE SWARTZ MD History and Physical TIME OF SERVICE: 4:30 AM CHIEF COMPLAINT: Increased mucus production HISTORY OF PRESENT ILLNESS: This is a 68-year-old male who presents with complaints of increased production of yellow sputum compared to his baseline for a few days , associated with gradually worsening shortness of breath. He denies having chest pain, denies having fevers, denies having chills, denies having runny nose, denies having blood in the sputum, denies having sick contacts, and reports that his weight is stable. Per Dr. Felton his family found him making sounds as if he was choking and when they found him was was unresponsive and not breathing. When they suctio staci him a large amount of mucus came out and he spontaneously started breathing and regained consciousness. On initial arrival, his noted to be sating in the mid 80s on 4 L of oxygen, which is his baseline requirement. He was temporarily upgraded to a Ventimask and given Mucinex and neb treatments. 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 Hx of Chronic anemia History of Lyme's disease OA Status post hiatal hernia repair. Status post right hand surgery SOCIAL HISTORY: Former smoker FAMILY HISTORY: Father had throat cancer Mother had cervical cancer. Siblings had lung and breast cancer ALLERGIES: Please see below. HOME MEDICATIONS: Please see below. PHYSICAL EXAMINATION: VITAL SIGNS: Please see below. GEN: Slim build/ well developed/ NAD INTEGUMENT: He doesn't have facial plethora HEENT:NCAT / lips are not/ trachea seems to be slightly deviated to the left/ NC in place / maximal laryngeal height is <4cm / mucus membranes moist and pink / voice is hoarse CVS: RRR/no JVP LUNGS: is coarse expiratory rhonchi/ not able to speak full sentences without stopping to take a breath / coughing / ABDOMEN: the abdomen is tympanic on percussion, soft & not tender with palpation NEURO: CN 2-12 are grossly intact PSYCH: alert and oriented to person place and time/ able to understand and follow all commands LABORATORY DATA: See below. IMAGING: There is a chronic right-sided lesion, pulmonary vasculature is prominent. There appears to be an area of atelectasis at the right lower lung base. The final read is pending MICROBIOLOGY: Please see below. ASSESSMENT: Mr. 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 CAD, & anxiety, that was admitted for management of increased mucus production, possibly due to viral infection versus mucus plugging. PLAN: 1. Acute hypoxemic hypercarbic respiratory failure. The increased mucus production may be due to acute COPD due to viral infection vs mucus plugging other cause TBD Chest x-ray, ABG, BNP and respiratory panel were unrevealing His d-dimer is 684 but is ready on anticoagulation for a prior PE Plan: The to PCU/follow-up repeat ABG / treat acute COPD / chest PT / the daytime team may consider pulmonology . Consult to discuss whether the patient needs a CT and/or bronchoscopy 2. Acute COPD /oxygen-dependent respiratory failure (4L) Plan: supplemental O2 / continuous pulse oximetry / aspiration precautions / follow-up sputum cx / Dunebs Q6H, Albuterol Q4HP, Prednisone + PPI / will give Levofloxacin because the patient has an increase in sputum volume 3. Dysphagia He has a history of esophageal stricture secondary to radiation, status EGD with dilation Plan: Dietitian consult for tube feeds 4. History of PE Plan: Continue Elquis 5. Hypothyroidism Plan: Levothyroxine 6. Chronic CAD status post and STEMI 2018 / Dyslipidemia. Plan: Atorvastatin DVT PROPHYLAXIS: Not needed because apixaban DISPOSITION: Home after more than 2 midnight's stay Vital Signs Vital Signs Date Time Temp Pulse Resp B/P (MAP) Pulse Ox O2 Delivery O2 Flow Rate FiO2 05/19/19 03:06 93 20 96 Venturi Mask 8.0 05/19/19 02:30 114/57 (76) 05/19/19 00:15 99.8 Laboratory Data Labs 24H Laboratory Tests 2 05/19/19 00:24: Immature Granulocyte % (Auto) 0.4, Neutrophils (%) (Auto) 81.9H, Lymphocytes (%) (Auto) 5.4L, Monocytes (%) (Auto) 10.1H, Eosinophils (%) (Auto) 1.7, Basophils (%) (Auto) 0.5, Neutrophils # (Auto) 7.7, Lymphocytes # (Auto) 0.5L, Monocytes # (Auto) 1.0H, Eosinophils # (Auto) 0.2, Basophils # (Auto) 0.1, Nucleated Red Blood Cells % (auto) 0.0, Anion Gap 6L, Glomerular Filtration Rate > 60.0, Calcium Level 8.5L, Total Creatine Kinase 47, Creatine Kinase MB < 1.0, Creatine Kinase MB Relative Index 2.13, Troponin I 0.05 05/19/19 00:54: Lactic Acid Level 2.9*H CBC/BMP Laboratory Tests 05/19/19 00:24 Microbiology Microbiology 05/19/19 Respiratory Virus Panel (PCR) ([facility]ATIANA) - Final, Complete 05/19/19 Gram Stain, Received Pending 05/19/19 Sputum Culture, Received Pending 05/19/19 Blood Culture, Received Pending 05/19/19 Blood Culture, Received Pending Home Medications Scheduled Albuterol Sulf (Albuterol Sulfate) 2.5 Mg/3 Ml Vial.neb, 2.5 MG INH TID Apixaban (Eliquis) 5 Mg Tablet, 5 MG FT BID Atorvastatin Calcium (Atorvastatin Calcium) 40 Mg Tablet, 40 MG FT QHS Escitalopram Oxalate (Escitalopram Oxalate) 10 Mg Tab, 10 MG FT DAILY Levothyroxine Sodium (Levothyroxine Sodium) 100 Mcg Tab, 100 MCG FT DAILY Scheduled PRN Oxycodone Hcl (Oxycodone HCl) 15 Mg Tablet, 15 MG FT Q4H PRN for PAIN Allergies Coded Allergies: latex (Verified Allergy, Intermediate, hives, 02/23/19) A-FIB/CHADSVASC A-FIB History Current/History of A-Fib/PAF?: No ALFIE SWARTZ MD May 19, 2019 03:12
[2019-05-19] MEDS ORDERED: ALBU83IN INH (03:46)
[2019-05-19] MEDS ORDERED: methylPREDNISolone INJ 125 MG/2 ML VIAL (J2930) IV STA (04:02)
[2019-05-19] MEDS ORDERED: LevoFLOXacin 500 MG TABLET PO SCH (04:15)
[2019-05-19] MEDS ORDERED: LevoFLOXacin 500 MG TABLET PO ONE (04:15)
[2019-05-19] MEDS ORDERED: ALBUTEROL 90 MCG/ACT 8GM HFA INHALER INH PRN (04:15)
[2019-05-19 04:43] LABS: MAGNESIUM LEVEL 2.2 MG/DL (1.8-2.4); NT-PRO BNP 106 PG/ML (<125)
--- NOTE | 2019-05-19 06:39 | ECGEPIP ---
[facility] - ED Test Date: 2019-05-19 Pat Name: JERZY GAVIN Department: Room: - Gender: Male Pain Management Specialist: EUGENIEJ : 1950 Requested By: MARIA L Mcqueen Order Number: [id number] Reading MD: Michael Watkins Measurements Intervals [place] Rate: 90 P: 44 [place]: 143 QRS: -35 QRSD: 76 T: 30 QT: 337 QTc: 412 Interpretive Statements SINUS RHYTHM MARKED LEFT AXIS DEVIATION LOW QRS VOLTAGE IN PRECORDIAL LEADS SIMILAR TO 02/23/19 Electronically Signed on 05-19-2019 6:38:58 EST by Michael Watkins
[2019-05-19] MEDS: LEVOTHYROXINE 100MCG TABLET (0.1MG) GT SCH (06:58)
[2019-05-19] MEDS: IPRATROPIUM 0.5MG/ALBUTEROL 2.5MG INH SOL UD 3ML (DUONEB)(J7620) NEB SCH ×3 (07:33→20:59)
[2019-05-19] MEDS: oxyCODONE 5MG TAB GT PRN ×4 (08:02→22:45)
[2019-05-19] MEDS: APIXABAN 5 MG TAB (ELIQUIS) FT SCH ×2 (08:02→20:40)
[2019-05-19] MEDS: predniSONE 20 MG TAB PO SCH (08:02)
[2019-05-19] MEDS: PANTOPRAZOLE 40MG TAB (PROTONIX) PO SCH (08:02)
[2019-05-19] MEDS: ESCITALOPRAM OXALATE 10 MG TAB (LEXAPRO) FT SCH (08:02)
--- NOTE | 2019-05-19 11:27 | REP ---
Portable chest x-ray: Single view. History: Dyspnea. Comparison study: February 23, 2019. Findings: There is significant elevation of the right hemidiaphragm again noted. There is pleuroparenchymal fibrosis in the left base and some increased density is seen behind the heart similar to the prior study consistent with chronic atelectatic change. Monitoring electrodes and oxygen delivery tubing are seen. No definite new infiltrate. Electronically Signed by Gunner Camara MD 05/19/2019 07:58 A
--- NOTE | 2019-05-19 15:57 | IPNPDOC ---
Text Note Date of Service The patient was seen on 05/19/19. NOTE SUBJECTIVE: -Feels much better this morning, sitting up, speaking in short sentences, reports normal amount to minimal mucus production now PHYSICAL EXAMINATION: VITAL SIGNS: Please see below. GEN: Thin, appears older than stated age, well developed, NAD HEENT:NCAT, PERRLA, EOMI, MMM, NC in place on 3L, hoarse voice CVS: RRR, no JVD, no mrg LUNGS: Transmitted upper airway sounds, speaks in short sentences, no tachypnea, no use of accessory muscles, no bryanna crackles, on 3L NC ABDOMEN: the abdomen is tympanic on percussion, soft & not tender with palpation NEURO: CN 2-12 are grossly intact, moving all extremities spontaneously in bed PSYCH: alert and oriented to person place and time, able to understand and follow all commands LABORATORY DATA: Reviewed IMAGING: CXR: There is significant elevation of the right hemidiaphragm again noted. There is pleuroparenchymal fibrosis in the left base and some increased density is seen behind the heart similar to the prior study consistent with chronic atelectatic change. Monitoring electrodes and oxygen delivery tubing are seen. No definite new infiltrate. MICROBIOLOGY: Please see below. ASSESSMENT: 68-year-old man with a history of tonsillar cancer, esophageal strictures and radiation, dysphagia with a PEG tube on chronic tube feeds, hypothyroidism,COPD, history of PE on AC, radiation fibrosis, CAD & anxiety who was admitted for management of increased mucus production, possibly due to viral vs. bacterial infection. PLAN: 1. Acute on chronic hypoxemic hypercarbic respiratory failure: Mostly likely 2/2 mucus plugging given transient nature that improved with suctioning. Increased mucus however is likely 2/2 infection thus empiric antibiotics. -Possible viral vs. bacterial infection --> viral PCR panel negative, sputum with mixed GNRs and GPRs, continue empiric levaquin -Chest x-ray without bryanna opacities, ABG with some hypercarbia, BNP and respiratory panel were unrevealing -continue scheduled duonebs and PRN albuterol 2. COPD /oxygen-dependent respiratory failure (4L) -continue supplemental O2 -aspiration precautions -follow-up sputum cx -Dunebs Q6H -Albuterol Q4HP -Prednisone + PPI -continue Levofloxacin because the patient has an increase in sputum volume 3. Dysphagia He has a history of esophageal stricture secondary to radiation, status EGD with dilation -nutrition recommended Glucerna 1.2 kristie @ 75cc/hr x 24h w/ 120cc water flush QID 4. History of PE -Continue Elquis 5. Hypothyroidism -continue Levothyroxine 6. Chronic CAD status post and STEMI 2018 / Dyslipidemia. -continue Atorvastatin DVT PROPHYLAXIS: On treatment dose apixaban DISPOSITION: PCU, likely discharge tomorrow if mucus production remains low with PO levaquin course. VS,Fishbone, I+O VS, Fishbone, I+O Laboratory Tests 05/19/19 00:24 Vital Signs Date Time Temp Pulse Resp B/P (MAP) Pulse Ox O2 Delivery O2 Flow Rate FiO2 05/19/19 14:51 17 05/19/19 12:00 98.0 79 119/56 (77) 98 Nasal Cannula 3.0 I&O- Last 24 Hours up to 6 AM 05/19/19 06:00 Intake Total 0 ml Balance 0 ml FREDO PURCELL MD May 19, 2019 15:57
[2019-05-19] MEDS: ATORVASTATIN 20 MG TAB GT SCH (20:40)
[2019-05-20] VITALS (24 sets, daily range): BP systolic 111–146; BP diastolic 55–77; O2SAT 89–100
[2019-05-20] MEDS: IPRATROPIUM 0.5MG/ALBUTEROL 2.5MG INH SOL UD 3ML (DUONEB)(J7620) NEB SCH ×4 (02:00→19:28)
[2019-05-20] MEDS: LEVOTHYROXINE 100MCG TABLET (0.1MG) GT SCH (05:08)
[2019-05-20] MEDS: oxyCODONE 5MG TAB GT PRN ×5 (05:09→21:04)
[2019-05-20] MEDS: LevoFLOXacin 500 MG TABLET PO SCH (05:09)
[2019-05-20] MEDS ORDERED: TAMSULOSIN 0.4 MG CAP PO ONE (06:00)
[2019-05-20] MEDS: PANTOPRAZOLE 40MG TAB (PROTONIX) PO SCH (08:59)
[2019-05-20] MEDS: predniSONE 20 MG TAB PO SCH (09:00)
[2019-05-20] MEDS: APIXABAN 5 MG TAB (ELIQUIS) FT SCH ×2 (09:00→21:04)
[2019-05-20] MEDS: ESCITALOPRAM OXALATE 10 MG TAB (LEXAPRO) FT SCH (09:00)
--- NOTE | 2019-05-20 12:07 | IPNPDOC ---
Text Note Date of Service The patient was seen on 05/20/19. NOTE SUBJECTIVE: -Feels OK this morning, sitting up, breathing comfortably on 3L NC Interim events -Yesterday had urinary retention requiring straight cath and was started on tamsulosin. Refused to get out of bed citing unwellness. Was straight cathed for 700cc at 6PM, and again over night x 1. Now on Q8H PVRs with straight cath PRN for retention. Denies significant retention history, no dysuria, hematuria, fever, chills, new flank pain. -Was started on glucerna feeds yesterday per nutrition recs OBJECTIVE: VITAL SIGNS: Please see below. GEN: Thin, appears older than stated age, well developed, NAD HEENT:NCAT, PERRLA, EOMI, MMM, NC in place on 3L, hoarse voice CVS: RRR, no JVD, no mrg LUNGS: Transmitted upper airway sounds, speaks in short sentences, no tachypnea, no use of accessory muscles, no bryanna crackles, on 3L NC ABDOMEN: the abdomen is tympanic on percussion, soft & not tender with palpation NEURO: CN 2-12 are grossly intact, moving all extremities spontaneously in bed PSYCH: alert and oriented to person place and time, able to understand and follow all commands LABORATORY DATA: Reviewed, AM labs are pending IMAGING: CXR: There is significant elevation of the right hemidiaphragm again noted. There is pleuroparenchymal fibrosis in the left base and some increased density is seen behind the heart similar to the prior study consistent with chronic atelectatic change. Monitoring electrodes and oxygen delivery tubing are seen. No definite new infiltrate. MICROBIOLOGY: Please see below. ASSESSMENT: 68-year-old man with a history of tonsillar cancer, esophageal strictures and radiation, dysphagia with a PEG tube on chronic tube feeds, hypothyroidism,COPD, history of PE on AC, radiation fibrosis, CAD & anxiety who was admitted for management of increased mucus production, possibly due to viral vs. bacterial infection that has since improved with resolution of copious mucus production since starting levaquin, with course now c/b urinary retention and significant deconditioning. PLAN: 1. Acute on chronic hypoxemic hypercarbic respiratory failure: Mostly likely 2/2 mucus plugging given transient nature that improved with suctioning. Increased mucus however is likely 2/2 infection thus empiric antibiotics, now much improved since starting levaquin and now back on home 3L NC. -Possible viral vs. bacterial infection --> viral PCR panel negative, sputum with mixed GNRs and GPRs, continue empiric levaquin -Chest x-ray without bryanna opacities, ABG with some hypercarbia, BNP and respiratory panel were unrevealing -continue scheduled duonebs and PRN albuterol 2. COPD /oxygen-dependent respiratory failure (4L) -continue supplemental O2 -aspiration precautions -follow-up sputum cx -Dunebs Q6H -Albuterol Q4HP -Prednisone + PPI (day 3 of 5) -continue Levofloxacin because the patient has an increase in sputum volume (day 3 of 7) 3. Dysphagia He has a history of esophageal stricture secondary to radiation, status EGD with dilation -nutrition recommended Glucerna 1.2 kristie @ 75cc/hr x 24h w/ 120cc water flush QID 4. Urinary retention: -Will encourage out of bed with PT and OT today -PVRs Q8H and straight cath for >300cc -continue tamsulosin that was started overnight 5. Deconditioning: Lives with one of his adult children, uses walker with minimal distance walking one the ground floor of the home. Has been declining getting out of bed since admission. -PT and OT 6. History of PE -Continue Elquis 7. Hypothyroidism -continue Levothyroxine 8. Chronic CAD status post and STEMI 2018 / Dyslipidemia. -continue Atorvastatin DVT PROPHYLAXIS: On treatment dose apixaban DISPOSITION: PCU, need PT/OT evaluation and improvement in urinary retention, will monitor. VS,Fishbone, I+O VS, Fishbone, I+O Vital Signs Date Time Temp Pulse Resp B/P (MAP) Pulse Ox O2 Delivery O2 Flow Rate FiO2 05/20/19 06:00 99 Nasal Cannula 3.0 05/20/19 05:39 18 05/20/19 04:00 96.9 90 146/77 (100) I&O- Last 24 Hours up to 6 AM 05/20/19 05:59 Intake Total 0 ml Output Total 700 ml Balance -700 ml FREDO UPRCELL MD May 20, 2019 07:59
[2019-05-20] MEDS: ATORVASTATIN 20 MG TAB GT SCH (21:03)
[2019-05-21] VITALS (19 sets, daily range): BP systolic 98–135; BP diastolic 57–77; O2SAT 90–100
[2019-05-21] MEDS: oxyCODONE 5MG TAB GT PRN ×6 (01:03→21:43)
[2019-05-21] MEDS: IPRATROPIUM 0.5MG/ALBUTEROL 2.5MG INH SOL UD 3ML (DUONEB)(J7620) NEB SCH ×4 (02:00→19:51)
[2019-05-21] MEDS: LevoFLOXacin 500 MG TABLET PO SCH (05:09)
[2019-05-21] MEDS: LEVOTHYROXINE 100MCG TABLET (0.1MG) GT SCH (05:09)
[2019-05-21 05:43] LABS: HEMATOCRIT 35.6 % (42.0-52.0); HEMOGLOBIN 11.5 g/dl (13.5-17.5); MEAN CORPUSCULAR HEMOGLOBIN 31.4 pg (27.0-33.0); MEAN CORPUSCULAR HGB CONC 32.3 g/dl (32.0-36.5); MEAN CORPUSCULAR VOLUME 97.3 fl (80.0-96.0); PLATELET COUNT, AUTOMATED 125 10^3/uL (150-450); RED BLOOD COUNT 3.66 10^6/uL (4.30-6.10); WHITE BLOOD COUNT 14.2 10^3/uL (4.0-10.0)
[2019-05-21 06:28] LABS: BLOOD UREA NITROGEN 25 MG/DL (7-18); CALCIUM LEVEL 8.4 MG/DL (8.8-10.2); CARBON DIOXIDE LEVEL 38 MEQ/L (21-32); CHLORIDE LEVEL 95 MEQ/L (98-107); GLOMERULAR FILTRATION RATE > 60.0 (>49); GLUCOSE, FASTING 124 MG/DL (70-100); POTASSIUM SERUM 4.5 MEQ/L (3.5-5.1); SODIUM LEVEL 135 MEQ/L (136-145)
[2019-05-21] MEDS: TAMSULOSIN 0.4 MG CAP PO SCH (09:05)
[2019-05-21] MEDS: PANTOPRAZOLE 40MG TAB (PROTONIX) PO SCH (09:05)
[2019-05-21] MEDS: predniSONE 20 MG TAB PO SCH (09:06)
[2019-05-21] MEDS: APIXABAN 5 MG TAB (ELIQUIS) FT SCH ×2 (09:06→21:43)
[2019-05-21] MEDS: ESCITALOPRAM OXALATE 10 MG TAB (LEXAPRO) FT SCH (09:06)
--- NOTE | 2019-05-21 14:05 | IPNPDOC ---
Text Note Date of Service The patient was seen on 05/21/19. NOTE Subjective: -Feels well this morning, sitting up comfortably on 2L NC -Worked with PT yesterday, however is reluctant to get out of bed per nursing -Urinary retention resolved Interim events: -Sputum grew pseudomonas OBJECTIVE: VITAL SIGNS: Please see below. GEN: Thin, appears older than stated age, well developed, NAD HEENT:NCAT, PERRLA, EOMI, MMM, NC in place on 3L, hoarse voice CVS: RRR, no JVD, no mrg LUNGS: Speaking in full sentences today, no crackles or rhonchi today, clear to auscultation, no tachypnea, no use of accessory muscles, on 2L NC ABDOMEN: Normoactive, soft, NTND NEURO: CN 2-12 are grossly intact, moving all extremities spontaneously in bed PSYCH: alert and oriented to person place and time, able to understand and follow all commands LABORATORY DATA: Reviewed, WBC 14.2, Hgb 11.5, Hct 35.6, Platelets 125, na 135, K 4.5, Cr 0.8, Mag 2.6 IMAGING: CXR: There is significant elevation of the right hemidiaphragm again noted. There is pleuroparenchymal fibrosis in the left base and some increased density is seen behind the heart similar to the prior study consistent with chronic atelectatic change. Monitoring electrodes and oxygen delivery tubing are seen. No definite new infiltrate. MICROBIOLOGY: Please see below. Pseudomonas. ASSESSMENT: 68-year-old man with a history of tonsillar cancer, esophageal strictures and radiation, dysphagia with a PEG tube on chronic tube feeds, hypothyroidism,COPD, history of PE on AC, radiation fibrosis, CAD & anxiety who was admitted for management of increased mucus production, growing pseudomonas that has improved with resolution of copious mucus production since starting levaquin, with course c/b urinary retention now resolved and significant deconditioning requiring encouragement to participate in PT and getting out of bed. PLAN: 1. Acute on chronic hypoxemic hypercarbic respiratory failure: Pseudomonas PNA. Acute hypoxemia was likely 2/2 mucus plugging given transient nature that improved with suctioning. Now much improved since starting levaquin and now back on 2L NC. -Sputum with pseudomonas, continue levaquin -Chest x-ray without bryanna opacities, ABG with some hypercarbia, BNP and respiratory panel were unrevealing -continue scheduled duonebs and PRN albuterol 2. COPD /oxygen-dependent respiratory failure (4L) -continue supplemental O2 -aspiration precautions -follow-up sputum cx -Duonebs Q6H -Albuterol Q4HP -Prednisone + PPI (day 4 of 5) -continue Levofloxacin for pseudomonas PNA (day 4 of 7) 3. Dysphagia He has a history of esophageal stricture secondary to radiation, status EGD with dilation -nutrition recommended Glucerna 1.2 kristie @ 75cc/hr x 24h w/ 120cc water flush QID 4. Urinary retention: Resolved -Will continue to encourage out of bed with PT and OT, and sitting up in chair -PVRs Q8H and straight cath for >300cc -continue tamsulosin 5. Deconditioning: Lives with one of his adult children, uses walker with minimal distance walking one the ground floor of the home. Has been declining getting out of bed since most of the time, requiring encouragement. -PT and OT 6. History of PE -Continue Eliquis 7. Hypothyroidism -continue Levothyroxine 8. Chronic CAD status post and STEMI 2018 / Dyslipidemia. -continue Atorvastatin DVT PROPHYLAXIS: On treatment dose apixaban DISPOSITION: PCU, needs PT/OT and aggressively encouraging him to get out of bed to improve his deconditioning for eventual discharge home. VS,Fishbone, I+O VS, Fishbone, I+O Laboratory Tests 05/21/19 05:16 Vital Signs Date Time Temp Pulse Resp B/P (MAP) Pulse Ox O2 Delivery O2 Flow Rate FiO2 05/21/19 13:21 18 Nasal Cannula 2.0 05/21/19 12:00 97.3 81 125/75 (92) 92 I&O- Last 24 Hours up to 6 AM 05/21/19 06:00 Intake Total 3660 ml Output Total 3125 ml Balance 535 ml FREDO PURCELL MD May 21, 2019 14:05
[2019-05-21] MEDS: ATORVASTATIN 20 MG TAB GT SCH (21:42)
[2019-05-22] MEDS: IPRATROPIUM 0.5MG/ALBUTEROL 2.5MG INH SOL UD 3ML (DUONEB)(J7620) NEB SCH ×4 (02:00→19:35)
[2019-05-22] MEDS: oxyCODONE 5MG TAB GT PRN ×2 (03:26→08:07)
[2019-05-22 04:00] VITALS: BP 100/61
[2019-05-22 05:28] LABS: HEMATOCRIT 35.5 % (42.0-52.0); HEMOGLOBIN 11.7 g/dl (13.5-17.5); MEAN CORPUSCULAR HEMOGLOBIN 31.9 pg (27.0-33.0); MEAN CORPUSCULAR VOLUME 96.7 fl (80.0-96.0); PLATELET COUNT, AUTOMATED 120 10^3/uL (150-450); RED BLOOD COUNT 3.67 10^6/uL (4.30-6.10); WHITE BLOOD COUNT 9.4 10^3/uL (4.0-10.0)
[2019-05-22 05:47] LABS: BLOOD UREA NITROGEN 18 MG/DL (7-18); CALCIUM LEVEL 8.3 MG/DL (8.8-10.2); CARBON DIOXIDE LEVEL 36 MEQ/L (21-32); CHLORIDE LEVEL 97 MEQ/L (98-107); CREATININE FOR GFR 0.74 MG/DL (0.70-1.30); GLOMERULAR FILTRATION RATE > 60.0 (>49); GLUCOSE, FASTING 125 MG/DL (70-100); POTASSIUM SERUM 3.8 MEQ/L (3.5-5.1); SODIUM LEVEL 137 MEQ/L (136-145)
[2019-05-22] MEDS: LevoFLOXacin 500 MG TABLET PO SCH (06:09)
[2019-05-22] MEDS: LEVOTHYROXINE 100MCG TABLET (0.1MG) GT SCH (06:09)
[2019-05-22 08:00] VITALS: BP 132/72
[2019-05-22] MEDS: predniSONE 20 MG TAB PO SCH (08:06)
[2019-05-22] MEDS: ESCITALOPRAM OXALATE 10 MG TAB (LEXAPRO) FT SCH (08:07)
[2019-05-22] MEDS: APIXABAN 5 MG TAB (ELIQUIS) FT SCH ×2 (08:08→20:28)
[2019-05-22] MEDS: TAMSULOSIN 0.4 MG CAP PO SCH (08:08)
[2019-05-22] MEDS: PANTOPRAZOLE 40MG TAB (PROTONIX) PO SCH (08:08)
--- NOTE | 2019-05-22 10:42 | IPNPDOC ---
Text Note Date of Service The patient was seen on 05/22/19. NOTE Subjective: -No complaints this morning, sitting up comfortably on 2L NC -Sitting up in the chair, feels much better, conversational OBJECTIVE: VITAL SIGNS: Please see below. hemodynamically stable and afebrile GEN: Thin, appears older than stated age, well developed, NAD HEENT:NCAT, PERRLA, EOMI, MMM, NC in place on 3L, hoarse voice CVS: RRR, no JVD, no mrg LUNGS: Speaking in full sentences, no crackles or rhonchi, clear to auscultation bilaterally, no tachypnea, no use of accessory muscles, on 2L NC ABDOMEN: Normoactive, soft, NTND NEURO: CN 2-12 are grossly intact, moving all extremities spontaneously in bed PSYCH: alert and oriented to person place and time, able to understand and follow all commands LABORATORY DATA: Reviewed, WBC 9.4, Hgb 11.7, Hct 35.5, Platelets 120, na 137, K 3.8, Cr 0.74 IMAGING: CXR: There is significant elevation of the right hemidiaphragm again noted. There is pleuroparenchymal fibrosis in the left base and some increased density is seen behind the heart similar to the prior study consistent with chronic atelectatic change. Monitoring electrodes and oxygen delivery tubing are seen. No definite new infiltrate. MICROBIOLOGY: Please see below. Pseudomonas. ASSESSMENT: 68-year-old man with a history of tonsillar cancer, esophageal strictures and radiation, dysphagia with a PEG tube on chronic tube feeds, hypothyroidism,COPD, history of PE on AC, radiation fibrosis, CAD & anxiety who was admitted for management of increased mucus production, growing pseudomonas that has improved with resolution of copious mucus production since starting levaquin, with course c/b urinary retention now resolved and significant deconditioning requiring encouragement to participate in PT and getting out of bed. PLAN: 1. Acute on chronic hypoxemic hypercarbic respiratory failure: Pseudomonas PNA. Acute hypoxemia was likely 2/2 mucus plugging given transient nature that improved with suctioning. Now much improved since starting levaquin and now back on 2L NC. -Sputum with pseudomonas, continue levaquin (day 4 of 7) -Chest x-ray without bryanna opacities, ABG with some hypercarbia, BNP and respiratory panel were unrevealing -continue scheduled duonebs and PRN albuterol 2. COPD /oxygen-dependent respiratory failure (4L) -D/C continuous pulse ox -aspiration precautions -follow-up sputum cx -Duonebs Q6H -Albuterol Q4HP -Prednisone + PPI (05/22 day 4 of 5) -continue Levofloxacin for pseudomonas PNA (05/22 is day 4 of 7) 3. Dysphagia He has a history of esophageal stricture secondary to radiation, status EGD with dilation -nutrition recommended Glucerna 1.2 kristie @ 75cc/hr x 24h w/ 120cc water flush QID 4. Urinary retention: Resolved -Will continue to encourage out of bed with PT and OT, and sitting up in chair -D/C PVRs Q8H -continue tamsulosin 5. Deconditioning: Lives with one of his adult children, uses walker with minimal distance walking one the ground floor of the home. Has been declining getting out of bed since most of the time, requiring encouragement. -PT and OT -Continued to encourage him to cooperate with being out of bed for most of the day in chair and ambulating periodically around the room, as well as using the incentive spirometer 6. History of PE -Continue Eliquis 7. Hypothyroidism -continue Levothyroxine 8. Chronic CAD status post and STEMI 2018 / Dyslipidemia. -continue Atorvastatin DVT PROPHYLAXIS: On treatment dose apixaban DISPOSITION: PCU, needs PT/OT and aggressively encouraging him to get out of bed to improve deconditioning for eventual discharge home. VS,Fishbone, I+O VS, Fishbone, I+O Laboratory Tests 05/22/19 05:12 Vital Signs Date Time Temp Pulse Resp B/P (MAP) Pulse Ox O2 Delivery O2 Flow Rate FiO2 05/22/19 08:07 18 05/22/19 08:00 97.0 70 132/72 (92) 93 Nasal Cannula 2.0 I&O- Last 24 Hours up to 6 AM 05/22/19 06:00 Intake Total 825 ml Output Total 950 ml Balance -125 ml FREDO PURCELL MD May 22, 2019 08:39
[2019-05-22 11:40] VITALS: BP 148/97
[2019-05-22] MEDS: MORPHINE 4 MG/ML 1ML VIAL/SYRINGE (J2270) IV ONE ×2 (12:38→13:52)
[2019-05-22] MEDS: D5W/0.9% SODIUM CHLORIDE 1,000 ML IV SCH ×2 (13:52→22:46)
[2019-05-22 16:00] VITALS: BP 146/87
[2019-05-22] MEDS: MORPHINE 4 MG/ML 1ML VIAL/SYRINGE (J2270) IV PRN ×3 (17:38→22:47)
[2019-05-22 20:00] VITALS: BP 138/76
[2019-05-22] MEDS: ATORVASTATIN 20 MG TAB GT SCH (20:28)
[2019-05-22 23:59] VITALS: BP 140/74
[2019-05-23] VITALS: BP 140/74
[2019-05-23] MEDS: MORPHINE 4 MG/ML 1ML VIAL/SYRINGE (J2270) IV PRN ×3 (00:33→11:04)
[2019-05-23] MEDS: IPRATROPIUM 0.5MG/ALBUTEROL 2.5MG INH SOL UD 3ML (DUONEB)(J7620) NEB SCH ×4 (01:15→20:00)
[2019-05-23 04:00] VITALS: BP 141/71
[2019-05-23] MEDS: LEVOTHYROXINE 100MCG TABLET (0.1MG) GT SCH (05:11)
[2019-05-23] MEDS: LevoFLOXacin 500 MG TABLET PO SCH (05:11)
[2019-05-23 05:39] LABS: HEMATOCRIT 37.5 % (42.0-52.0); HEMOGLOBIN 12.2 g/dl (13.5-17.5); MEAN CORPUSCULAR HEMOGLOBIN 31.2 pg (27.0-33.0); MEAN CORPUSCULAR HGB CONC 32.5 g/dl (32.0-36.5); MEAN CORPUSCULAR VOLUME 95.9 fl (80.0-96.0); PLATELET COUNT, AUTOMATED 126 10^3/uL (150-450); RED BLOOD COUNT 3.91 10^6/uL (4.30-6.10); WHITE BLOOD COUNT 7.3 10^3/uL (4.0-10.0)
[2019-05-23 06:00] LABS: BLOOD UREA NITROGEN 12 MG/DL (7-18); CARBON DIOXIDE LEVEL 31 MEQ/L (21-32); CHLORIDE LEVEL 104 MEQ/L (98-107); GLOMERULAR FILTRATION RATE > 60.0 (>49); GLUCOSE, FASTING 101 MG/DL (70-100); POTASSIUM SERUM 3.6 MEQ/L (3.5-5.1); SODIUM LEVEL 140 MEQ/L (136-145)
[2019-05-23 08:00] VITALS: BP 115/63
[2019-05-23] MEDS ORDERED: LevoFLOXacin IV 500 MG in IV 1 EA IV SCH (08:00)
[2019-05-23] MEDS ORDERED: methylPREDNISolone INJ 40 MG/1 ML VIAL (J2920) IV ONE (08:00)
[2019-05-23] MEDS: APIXABAN 5 MG TAB (ELIQUIS) FT SCH ×2 (08:20→21:39)
[2019-05-23] MEDS: D5W/0.9% SODIUM CHLORIDE 1,000 ML IV SCH (08:20)
[2019-05-23] MEDS: PANTOPRAZOLE 40MG TAB (PROTONIX) PO SCH (08:21)
[2019-05-23] MEDS: ESCITALOPRAM OXALATE 10 MG TAB (LEXAPRO) FT SCH (08:21)
[2019-05-23] MEDS ORDERED: fentaNYL 100 MCG/2 ML INJECTION (J3010) As Ordered ONE (08:57)
[2019-05-23] MEDS ORDERED: diphenhydrAMINE INJ 50MG/ML VIAL (J1200) As Ordered ONE (08:57)
[2019-05-23] MEDS ORDERED: MIDAZOLAM INJ 2 MG/2 ML VIAL (J2250) As Ordered ONE (08:58)
[2019-05-23] MEDS ORDERED: ISOVUE-300 61% 50ML VIAL (Q9967) As Ordered ONE (08:59)
[2019-05-23] MEDS ORDERED: LIDOCAINE 1% MDV 20ML VIAL As Ordered ONE (08:59)
[2019-05-23] MEDS ORDERED: LEVOTHYROXINE 100 MCG (0.1MG) VIAL IV SCH ×2 (09:00)
--- NOTE | 2019-05-23 11:47 | IPNPDOC ---
Text Note Date of Service The patient was seen on 05/23/19. NOTE Subjective: -No complaints this morning, continues on home 2L NC Interval history: -PEG got pulled out when it tangled while ambulating, for now had dressing placed pending IR replacement of PEG -Placed on D5NS with tube feeds held @ 100cc/hr -Pain meds switched to morphine 4 IV Q4PRN until PEG is replaced OBJECTIVE: VITAL SIGNS: Please see below. hemodynamically stable and afebrile GEN: Thin, appears older than stated age, well developed, NAD HEENT:NCAT, PERRLA, EOMI, MMM, NC in place on 3L, hoarse voice CVS: RRR, no JVD, no mrg LUNGS: Speaking in full sentences, no crackles or rhonchi, clear to auscultation bilaterally, no tachypnea, no use of accessory muscles, remains on 2L NC ABDOMEN: Normoactive, soft, NTND NEURO: CN 2-12 are grossly intact, moving all extremities spontaneously in bed PSYCH: alert and oriented to person place and time, able to understand and follow all commands LABORATORY DATA: Reviewed, WBC 7,3, Hgb 12.2, Hct 37.5, Platelets 126, na 140, K 3.6, Cr 0.7 IMAGING: CXR: There is significant elevation of the right hemidiaphragm again noted. There is pleuroparenchymal fibrosis in the left base and some increased density is seen behind the heart similar to the prior study consistent with chronic atelectatic change. Monitoring electrodes and oxygen delivery tubing are seen. No definite new infiltrate. MICROBIOLOGY: Please see below. Pseudomonas. ASSESSMENT: 68-year-old man with a history of tonsillar cancer, esophageal strictures and radiation, dysphagia with a PEG tube on chronic tube feeds, hypothyroidism,COPD, history of PE on AC, radiation fibrosis, CAD & anxiety who was admitted for management of increased mucus production, growing pseudomonas that has improved with resolution of copious mucus production since starting levaquin, with course c/b urinary retention now resolved, significant deconditioning requiring encouragement to participate in PT and getting out of bed now improving, and most recently PEG dislodgment requiring replacement pending IR replacement. PLAN: 1. Acute on chronic hypoxemic hypercarbic respiratory failure: Pseudomonas PNA. Acute hypoxemia was likely 2/2 mucus plugging given transient nature that improved with suctioning. Now much improved since starting levaquin and now back on 2L NC. -Sputum with pseudomonas, continue levaquin (day 5 ), switched to IV while PEG is pending replacement -Chest x-ray without bryanna opacities, ABG with some hypercarbia, BNP and respiratory panel were unrevealing -continue scheduled duonebs and PRN albuterol 2. COPD /oxygen-dependent respiratory failure (4L) -D/C continuous pulse ox -aspiration precautions -follow-up sputum cx -Duonebs Q6H -Albuterol Q4HP -Prednisone + PPI (05/22 day 5 ), dc'd pred, will give 40 IV solumedrol for last dose as PEG is out and have to give in IV formulation. -continue Levofloxacin for pseudomonas PNA (05/22 is day 5 ) 3. Dysphagia He has a history of esophageal stricture secondary to radiation, status EGD with dilation -nutrition recommended Glucerna 1.2 kristie @ 75cc/hr x 24h w/ 120cc water flush QID, currently held because PEG is out, will restart when PEG is replaced, currently on D5NS 4. Urinary retention: Resolved -Will continue to encourage out of bed with PT and OT, and sitting up in chair -D/c tamsulosin 5. Deconditioning: Lives with one of his adult children, uses walker with minimal distance walking one the ground floor of the home. Has been declining getting out of bed since most of the time, requiring encouragement. -PT and OT -Continued to encourage him to cooperate with being out of bed for most of the day in chair and ambulating periodically around the room, as well as using the incentive spirometer 6. History of PE -Continue Eliquis 7. Hypothyroidism -continue Levothyroxine, switched to IV while PEG is pending replacement 8. Chronic CAD status post and STEMI 2018 / Dyslipidemia. -continue Atorvastatin, currently held till PEG is replaced DVT PROPHYLAXIS: On treatment dose apixaban DISPOSITION: PCU, needs PT/OT and aggressively encouraging him to get out of bed to improve deconditioning for eventual discharge home. VS,Fishbone, I+O VS, Fishbone, I+O Laboratory Tests 05/23/19 05:20 Vital Signs Date Time Temp Pulse Resp B/P (MAP) Pulse Ox O2 Delivery O2 Flow Rate FiO2 05/23/19 05:10 18 05/23/19 04:00 2.0 05/23/19 04:00 97.6 70 141/71 (94) 96 Nasal Cannula I&O- Last 24 Hours up to 6 AM 05/23/19 05:59 Intake Total 550 ml Output Total 1175 ml Balance -625 ml FREDO PURCELL MD May 23, 2019 07:35
[2019-05-23 12:00] VITALS: BP 95/55
[2019-05-23] MEDS: oxyCODONE 5MG TAB GT PRN ×3 (12:43→21:40)
[2019-05-23 16:00] VITALS: BP 101/55
[2019-05-23 20:00] VITALS: BP 161/83
[2019-05-23] MEDS: ATORVASTATIN 20 MG TAB GT SCH (21:39)
[2019-05-24] VITALS: BP 141/85
[2019-05-24] MEDS: IPRATROPIUM 0.5MG/ALBUTEROL 2.5MG INH SOL UD 3ML (DUONEB)(J7620) NEB SCH ×3 (02:00→13:21)
[2019-05-24] MEDS: oxyCODONE 5MG TAB GT PRN ×3 (03:05→11:58)
[2019-05-24 04:45] VITALS: BP 136/82
[2019-05-24] MEDS ORDERED: LEVOTHYROXINE 100MCG TABLET (0.1MG) PO SCH (06:00)
[2019-05-24] MEDS ORDERED: LevoFLOXacin 500 MG TABLET PO SCH (06:00)
[2019-05-24 06:46] LABS: HEMATOCRIT 38.5 % (42.0-52.0); HEMOGLOBIN 12.4 g/dl (13.5-17.5); MEAN CORPUSCULAR HEMOGLOBIN 31.3 pg (27.0-33.0); MEAN CORPUSCULAR HGB CONC 32.2 g/dl (32.0-36.5); MEAN CORPUSCULAR VOLUME 97.2 fl (80.0-96.0); PLATELET COUNT, AUTOMATED 119 10^3/uL (150-450); RED BLOOD COUNT 3.96 10^6/uL (4.30-6.10); WHITE BLOOD COUNT 9.5 10^3/uL (4.0-10.0)
[2019-05-24 07:08] LABS: BLOOD UREA NITROGEN 14 MG/DL (7-18); CALCIUM LEVEL 7.9 MG/DL (8.8-10.2); CARBON DIOXIDE LEVEL 27 MEQ/L (21-32); CHLORIDE LEVEL 105 MEQ/L (98-107); CREATININE FOR GFR 0.58 MG/DL (0.70-1.30); GLOMERULAR FILTRATION RATE > 60.0 (>49); GLUCOSE, FASTING 117 MG/DL (70-100); POTASSIUM SERUM 3.7 MEQ/L (3.5-5.1); SODIUM LEVEL 138 MEQ/L (136-145)
[2019-05-24 08:00] VITALS: BP 121/76
[2019-05-24] MEDS: ESCITALOPRAM OXALATE 10 MG TAB (LEXAPRO) FT SCH (09:31)
[2019-05-24] MEDS: APIXABAN 5 MG TAB (ELIQUIS) FT SCH (09:31)
[2019-05-24] MEDS: PANTOPRAZOLE 40MG TAB (PROTONIX) PO SCH (09:31)
[2019-05-24] MEDS ORDERED: LEVA1TAB2 PO (11:41)
[2019-05-24 12:00] VITALS: BP 134/79
--- NOTE | 2019-05-24 14:07 | REP ---
IR Gastrostomy catheter exchange. Gastrostomy catheter exchange under fluoroscopy guidance. Clinical information: G tube dependent. Catheter fell out. Placed 3 years ago. Physician: Dr. Guzmán. Procedure: The patient was advised of the benefits, risks and alternatives of the procedure and informed consent was obtained. The time-out was performed with verification of the patient's name, MRN, site of procedure and type of procedure to be performed. The patient was positioned in the supine position on the angiographic table. The site was prepped and draped in the usual sterile fashion. Moderate sedation was not required. The physician spent 45 minutes of continuous face to face time with the patient. A construction quality control manager radiograph reveals no gross abnormality. The ostomy site was probed with a Glidewire under fluoroscopy guidance. A 5 F Kumpe catheter was advanced over the wire into the stomach. Injection of contrast through the catheter confirmed intragastric location. An Amplatz wire was advanced through the catheter into the stomach under fluoroscopy guidance. The kumpe catheter was removed over the wire. A 20-Bolivian gastrostomy catheter was advanced over the wire under fluoroscopy guidance into the stomach. The balloon was then insufflated under fluoroscopy guidance and retracted to the anterior stomach wall. Injection of contrast confirmed intragastric location. The catheter was secured and attached to a gravity drainage bag. A sterile dressing was applied. The patient tolerated the procedure well and was returned to the PRU in stable condition. EBL: Less than 5 ml. Complications: None. Conclusion: Successful replacement of 20 F Gastrostomy catheter. The catheter is ready for immediate use. Thank you this referral. Electronically Signed by Saumya Guzmán MD 05/24/2019 02:06 P
--- NOTE | 2019-05-25 13:51 | DS.PDOC ---
Discharge Summary General Date of Admission May 19, 2019 at 03:10 Date of Discharge 05/24/19 Discharge Summary PROCEDURES PERFORMED DURING STAY: Replacement of PEG tube by IR. DISCHARGE DIAGNOSES: Acute on chronic respiratory failure with hypoxia and hypercarbia Pneumonia with Pseudomonas. Accidental PEG tube displacement during ambulation when it got caught in walker. Acute urinary retention in hospital now resolved. Generalized deconditioning. Chronic opiate use. 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 Hx of Chronic anemia History of Lyme's disease OA Status post hiatal hernia repair. COMPLICATIONS/CHIEF COMPLAINT: Acute Hypoxemic Resp Failure. HISTORY OF PRESENT ILLNESS: See history and physical HOSPITAL COURSE: 68-year-old man with a history of right tonsillar cancer treat ed with chemo- radiation, esophageal strictures from radiation, dysphagia with a PEG tube on chronic tube feeds, hypothyroidism, COPD, history of PE on AC, radiation fibrosis, CAD & anxiety who was admitted for management of increased mucus production, growing pseudomonas that has improved with resolution of copious mucus production since starting levaquin, with course c/b urinary retention now resolved, significant deconditioning requiring encouragement to participate in PT and getting out of bed now improving, and most recently PEG dislodgment requiring replacement pending IR replacement. Acute on chronic hypoxemic hypercarbic respiratory failure: Pseudomonas PNA. Acute hypoxemia was likely 2/2 mucus plugging given transient nature that improved with suctioning. Now much improved since starting levaquin and now back on 2L NC. Sputum with pseudomonas, continue levaquin for 7 days. continue duonebs and PRN albuterol COPD /oxygen-dependent respiratory failure (4L) continue home meds. finish course of levofloxacin Dysphagia He has a history of esophageal stricture secondary to radiation, status EGD with dilation nutrition recommended Glucerna 1.2 kristie @ 75cc/hr x 24h w/ 120cc water flush QID Urinary retention: Resolved Deconditioning Lives with one of his adult children, uses walker with minimal distance walking one the ground floor of the home. PT as outpatient. History of PE Continue Eliquis Hypothyroidism continue Levothyroxine CAD status post and STEMI 2018 / Dyslipidemia. continue Atorvastatin and eliquis Anxiety continue home med lexapro DISCHARGE MEDICATIONS: Please see below. ALLERGIES: Please see below. PHYSICAL EXAMINATION ON DISCHARGE: VITAL SIGNS: Please see below. GEN: Thin, appears older than stated age, laying down comfortably in bed. HEENT:NCAT, PERRLA, EOMI, hoarse voice , moist mucous membranes. CVS: RRR, no JVD, no mrg LUNGS: Speaking in full sentences, no crackles or rhonchi, clear to auscultation bilaterally, no tachypnea, no use of accessory muscles ABDOMEN: soft, nontender, normal bowel sounds, PEG tube in palce. NEURO: CN 2-12 are grossly intact, moving all extremities spontaneously in bed PSYCH: alert and oriented to person place and time, able to understand and follow all commands LABORATORY DATA: Please see below. IMAGING: CXR: There is significant elevation of the right hemidiaphragm again noted. There is pleuroparenchymal fibrosis in the left base and some increased density is seen behind the heart similar to the prior study consistent with chronic atelectatic change. Monitoring electrodes and oxygen delivery tubing are seen. No definite new infiltrate. ACTIVITY: [As tolerated]. DIET: Tube feeding as per portfolio administrator recommendation. DISPOSITION: 06 Home Health Service. DISCHARGE INSTRUCTIONS: PMD in 1 week DISCHARGE CONDITION: [Stable]. TIME SPENT ON DISCHARGE: 35 minutes. Vital Signs/I&Os Vital Signs Date Time Temp Pulse Resp B/P (MAP) Pulse Ox O2 Delivery O2 Flow Rate FiO2 05/24/19 12:28 18 96 Room Air 2.0 05/24/19 12:00 97.9 67 134/79 (97) I&O- Last 24 Hours up to 6 AM 05/25/19 06:00 Intake Total 0 ml Output Total 450 ml Balance -450 ml Laboratory Data CBC/BMP Item Value Date Time White Blood Count 9.5 10^3/uL 05/24/19625 Red Blood Count 3.96 10^6/uL L 05/24/19625 Hemoglobin 12.4 g/dl L 05/24/19625 Hematocrit 38.5 % L 05/24/19625 Mean Corpuscular Volume 97.2 fl H 05/24/19625 Mean Corpuscular Hemoglobin 31.3 pg 05/24/19625 Mean Corpuscular Hemoglobin Concent 32.2 g/dl 05/24/19625 Red Cell Distribution Width 13.3 % 05/24/19625 Platelet Count 119 10^3/uL L 05/24/19625 Potassium Level 3.7 MEQ/L 05/24/19625 Sodium Level 138 MEQ/L 05/24/19625 Chloride Level 105 MEQ/L 05/24/19625 Carbon Dioxide Level 27 MEQ/L 05/24/19625 Anion Gap 6 MEQ/L L 05/24/19625 Blood Urea Nitrogen 14 MG/DL 05/24/19625 Creatinine 0.58 MG/DL L 05/24/19625 Glomerular Filtration Rate > 60.0 05/24/19625 Fasting Glucose 117 MG/DL H 05/24/19625 Calcium Level 7.9 MG/DL L 05/24/19625 Microbiology Microbiology 05/19/19 Respiratory Virus Panel (PCR) (TATIANA) - Final, Complete 05/19/19 Gram Stain - Final, Complete 05/19/19 Sputum Culture - Final, Complete Pseudomonas Aeruginosa 05/19/19 Blood Culture - Final, Complete NO GROWTH AFTER 5 DAYS 05/19/19 Blood Culture - Final, Complete NO GROWTH AFTER 5 DAYS Discharge Medications Scheduled Albuterol Sulf (Albuterol Sulfate) 2.5 Mg/3 Ml Vial.neb, 2.5 MG INH TID, (Reported) Apixaban (Eliquis) 5 Mg Tablet, 5 MG FT BID, (Reported) Atorvastatin Calcium (Atorvastatin Calcium) 40 Mg Tablet, 40 MG FT QHS, (Reported) Escitalopram Oxalate (Escitalopram Oxalate) 10 Mg Tab, 10 MG FT DAILY, (Reported) Levofloxacin (Levaquin) 500 Mg Tablet, 500 MG PO DAILY@06 Levothyroxine Sodium (Levothyroxine Sodium) 100 Mcg Tab, 100 MCG FT DAILY, (Reported) Scheduled PRN Oxycodone Hcl (Oxycodone HCl) 15 Mg Tablet, 15 MG FT Q4H PRN for PAIN, (Reported) Allergies Coded Allergies: latex (Verified Allergy, Intermediate, hives, 02/23/19) KARUNA DAILEY MD May 25, 2019 13:51
== END 2019-05-24 14:55 | disposition home health service (06) | DRG 177 ==
LOC: EDBD → M ED → M ED INP 03:10 → ENRESERVTM 04:24 → ENRESERVDT 04:24 → M PCU 05:01
PROVIDERS: ADMIT Internal Medicine; ATTEND Internal Medicine Nephrology
PROC: 0DH63UZ Insertion of Feeding Device into Stomach, Percutaneous Approach (ICD-10-PCS; principal; 2019-05-23 09:30)
DX: J15.1 Pneumonia due to Pseudomonas (principal); J96.21 Acute and chronic respiratory failure with hypoxia; J96.22 Acute and chronic respiratory failure with hypercapnia; J44.1 Chronic obstructive pulmonary disease with (acute) exacerbation; J44.0 Chronic obstructive pulmonary disease with (acute) lower respiratory infection; K94.23 Gastrostomy malfunction; I25.10 Atherosclerotic heart disease of native coronary artery without angina pectoris; I25.2 Old myocardial infarction; K22.2 Esophageal obstruction; Z99.81 Dependence on supplemental oxygen; E03.9 Hypothyroidism, unspecified; F41.9 Anxiety disorder, unspecified; Z87.891 Personal history of nicotine dependence; D64.9 Anemia, unspecified; M19.90 Unspecified osteoarthritis, unspecified site; Z85.818 Personal history of malignant neoplasm of other sites of lip, oral cavity, and pharynx; Z86.711 Personal history of pulmonary embolism; Z79.01 Long term (current) use of anticoagulants; Z79.899 Other long term (current) drug therapy

== ENCOUNTER 2019-06-27 23:26 | Inpatient (IN) | payer MEDICARE, MEDICAID ==
[~2019-06-27] VITALS: Ht 170.2 cm; Wt 80.1 kg
[2019-06-28] VITALS (18 sets, daily range): BP systolic 102–143; BP diastolic 64–78; O2SAT 83–97
[2019-06-28 00:23] LABS: BASO # 0.1 10^3/uL (0.0-0.2); BASO % 0.8 % (0.0-1.0); EOS # 0.2 10^3/uL (0.0-0.5); EOS % 2.5 % (0.0-3.0); HEMATOCRIT 42.1 % (42.0-52.0); HEMOGLOBIN 13.5 g/dl (13.5-17.5); LYMPH # 0.6 10^3/uL (1.5-5.0); LYMPH % 9.5 % (24.0-44.0); MEAN CORPUSCULAR HEMOGLOBIN 31.5 pg (27.0-33.0); MEAN CORPUSCULAR HGB CONC 32.1 g/dl (32.0-36.5); MEAN CORPUSCULAR VOLUME 98.4 fl (80.0-96.0); MONO # 0.9 10^3/uL (0.0-0.8); MONO % 13.6 % (0.0-5.0); NEUTROPHILS # 4.8 10^3/uL (1.5-8.5); NEUTROPHILS % 73.3 % (36.0-66.0); PLATELET COUNT, AUTOMATED 117 10^3/uL (150-450); RED BLOOD COUNT 4.28 10^6/uL (4.30-6.10); WHITE BLOOD COUNT 6.5 10^3/uL (4.0-10.0)
[2019-06-28 01:16] LABS: ALBUMIN 3.1 GM/DL (3.2-5.2); BILIRUBIN,DIRECT 0.2 MG/DL (0.0-0.2); BILIRUBIN,TOTAL 0.4 MG/DL (0.2-1.0); CK-MB VALUE MASS 1.1 NG/ML (<3.6); MB/CK RELATIVE INDEX 1.16 (< OR =4); THYROID STIMULATING HORMONE 3.62 uIU/ML (0.358-3.740); TOTAL PROTEIN 6.1 GM/DL (6.4-8.2); TROPONIN I 0.04 NG/ML (< 0.10)
[2019-06-28] MEDS ORDERED: IPRATROPIUM 0.5MG/ALBUTEROL 2.5MG INH SOL UD 3ML (DUONEB)(J7620) NEB ONE ×2 (01:30→03:15)
[2019-06-28 02:47] LABS: INFLUENZA A AMPLIFICATION NEGATIVE (NEGATIVE); INFLUENZA B AMPLIFICATION NEGATIVE (NEGATIVE)
[2019-06-28] MEDS ORDERED: guaiFENesin ER 600 MG TAB PO ONE (03:15)
[2019-06-28] MEDS ORDERED: OXYC10TA12 FT (03:35)
[2019-06-28] MEDS ORDERED: OXYC40TA29 FT (03:35)
[2019-06-28] MEDS ORDERED: oxyCODONE 5MG TAB GT PRN (03:45)
[2019-06-28] MEDS ORDERED: ALBUTEROL SULFATE 2.5 MG/0.5 ML INH NEB SOLN NEB PRN (04:00)
[2019-06-28] MEDS ORDERED: ASPIRIN 81 MG CHEW TABLET PO ONE (04:00)
[2019-06-28] MEDS ORDERED: HEPARIN SOD (PORCINE) 5000 UNITS/ML VIAL (J1644 PER 1000UNITS) SC SCH (04:00)
[2019-06-28] MEDS: IPRATROPIUM 0.5MG/ALBUTEROL 2.5MG INH SOL UD 3ML (DUONEB)(J7620) NEB SCH ×5 (04:16→20:53)
--- NOTE | 2019-06-28 04:20 | HPEPDOC ---
General Date of Admission 06/28/19 Date of Service: Jun 28, 2019 Chief Complaint The patient is a 68-year-old male admitted with a reason for visit of Syncope. 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 Patient stated that past 2 days he has been having increased shortness of breath, he had a coughing spell so hard tonight he syncopized. In emergency room patient was found to have low oxygen saturation around 70s. He was found to have significant amount of oropharyngeal secretion, after suction his saturation improved to 90s. Chest x-ray shows no changes compared to previous, it was done in May 2019 when patient was hospitalized with pneumonia secondary to Pseudomonas aeruginosa infection. Patient denied fever, chills, chest pain, palpitations, diarrhea or dysuria. Patient does not have leukocytosis. Home Medications Scheduled Apixaban (Eliquis) 5 Mg Tablet, 5 MG FT BID, (Reported) Atorvastatin Calcium (Atorvastatin Calcium) 40 Mg Tablet, 40 MG FT QHS, (Repor loyd) Escitalopram Oxalate (Escitalopram Oxalate) 10 Mg Tab, 10 MG FT DAILY, (Reported) Levothyroxine Sodium (Levothyroxine Sodium) 100 Mcg Tab, 100 MCG FT DAILY, (Reported) Oxycodone HCl (Oxycontin) 40 Mg Tab.er.12h, 40 MG FT BID, (Reported) Scheduled PRN Albuterol Sulf (Albuterol Sulfate) 2.5 Mg/3 Ml Vial.neb, 2.5 MG INH TID PRN for SOB/WHEEZING, (Reported) Oxycodone HCl (Oxycodone HCl) 10 Mg Tablet, 10 MG FT QID PRN for SEVERE PAIN (PS 8-10), (Reported) Allergies Coded Allergies: latex (Verified Allergy, Intermediate, hives, 02/23/19) Past Medical History Medical History 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 Hx of Chronic anemia History of Lyme's disease OA Status post hiatal hernia repair. Surgical History RIGHT HAND SURGERY 2006 G-TUBE PLACEMENT 2010 CHEMO/RADIATION FOR THROAT CA REPAIR HITAL HERNIA G-TUBE PLACEMENT 2017 Family History FATHER: , THROAT CA, DIAGNOSED WITH OTHER MALIGNANT NEOPLASM OF UNSPECIFIED SITE MOTHER: , CERVICAL CA, OTHER MALIGNANT NEOPLASM OF UNSPECIFIED SITE SIBLINGS: , LUNG AND BREAST CA 3 SON(S) . BROTHER MARIA EUGENIA---LUNG CANCER (). Social History * Smoker: former Smoker Alcohol: Denies Drugs: denies A-FIB/CHADSVASC A-FIB History Current/History of A-Fib/PAF?: No Current PO Anticoag Therapy: No Review of Systems Constitutional: Denies: Chills, Fever Eyes: Denies: Pain, Vision change ENT: Denies: Head Aches Skin: Denies: Rash, Lesions Pulmonary: Reports: Dyspnea, Cough Cardiovascular: Denies: Chest Pain, Palpitations Gastrointestinal: Denies: Nausea, Vomiting Genitourinary: Denies: Dysuria, Frequency Hematologic: Denies: Bruising, Bleeding Excessively Endocrine: Denies: Polydipsia, Polyphagia Musculoskeletal: Denies: Neck Pain, Back Pain Neurological: Denies: Weakness Psych: Reports: Mood Normal Physical Examination General Exam: Positive: Alert, Moderate Distress Eye Exam: Positive: PERRLA ENT Exam: Positive: Atraumatic, Mucous membr. moist/pink Neck Exam: Positive: Supple; Negative: JVD Heart Exam: Positive: Tachycardic; Negative: Rate Normal Telemetry: Positive: Sinus Abdomen Exam: Positive: Normal bowel sounds Extremity Exam: Positive: Clubbing; Negative: Cyanosis Skin Exam: Positive: Nl turgor and temperature Neuro Exam: Positive: Strength at 5/5 X4 ext, Cranial Nerves 3-12 NL Psych Exam: Positive: Mental status NL Vital Signs Vital Signs Date Time Temp Pulse Resp B/P (MAP) Pulse Ox O2 Delivery O2 Flow Rate FiO2 06/28/19 03:30 89 111/73 (86) 100 Aerosol Mask 06/28/19 02:45 4.0 06/27/19 23:44 98.6 20 Laboratory Data Labs 24H Laboratory Tests 2 06/28/19 00:08: Immature Granulocyte % (Auto) 0.3, Neutrophils (%) (Auto) 73.3H, Lymphocytes (%) (Auto) 9.5L, Monocytes (%) (Auto) 13.6H, Eosinophils (%) (Auto) 2.5, Basophils (%) (Auto) 0.8, Neutrophils # (Auto) 4.8, Lymphocytes # (Auto) 0.6L, Monocytes # (Auto) 0.9H, Eosinophils # (Auto) 0.2, Basophils # (Auto) 0.1, Nucleated Red Blood Cells % (auto) 0.0, Total Bilirubin 0.4, Direct Bilirubin 0.2, Aspartate Amino Transf (AST/SGOT) 45H, Alanine Aminotransferase (ALT/SGPT) 82H, Alkaline Phosphatase 105, Total Creatine Kinase 95, Creatine Kinase MB 1.1, Creatine Kinase MB Relative Index 1.16, Troponin I 0.04, Total Protein 6.1L, Albumin 3.1L, Albumin/Globulin Ratio 1.03, Thyroid Stimulating Hormone (TSH) 3.620 06/28/19 00:14: POC Glucose (Misc Panel) 112H, POC Sodium (Misc Panel) 136, POC Potassium (Misc Panel) 4.4, POC Chloride (Misc Panel) 92L, POC Total CO2 (Misc Panel) 35.0H, POC Blood Urea Nitrogen (Misc Panel 17, POC Ionized Calcium (Misc Panel) 4.6, POC Creatinine (Misc Panel) 0.9, POC Hematocrit (Misc Panel) 43.0 06/28/19 01:28: Influenza Type A (RT-PCR) NEGATIVE, Influenza Type B (RT-PCR) NEGATIVE 06/28/19 03:19: POC Total CO2 (Misc Panel) 40.0H, POC pH (Misc Panel) 7.347L, POC Base Excess (Misc Panel) 12.0H, POC Saturated Percent O2 (Misc) 99H, POC pO2 (Misc Panel) 160.0H, POC pCO2 (Misc Panel) 68.7*H, POC HCO3 (Misc Panel) 37.7H CBC/BMP Laboratory Tests 06/28/19 00:08 Assessment/Plan Patient is 68 years with past medical history of 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 Patient stated that past 2 days he has been having increased shortness of breath, he had a coughing spell so hard tonight he syncopized. In emergency room patient was found to have low oxygen saturation around 70s. He was found to have significant amount of oropharyngeal secretion, after suction his saturation improved to 90s. Chest x-ray shows no changes compared to previous, it was done in May 2019 when patient was hospitalized with pneumonia secondary to Pseudomonas aeruginosa infection. Problems (1) Acute hypoxemic respiratory failure Status: Acute Problem Text: Most likely secondary to increased mucus oropharyngeal secretions secondary to previous radiation treatment Mucinex Inhalers Patient does not have leukocytosis however his secretion is brownish and he has intensive cough. Patient has been recently treated for pneumonia secondary to Pseudomonas aeruginosa infection. I will start levofloxacin by mouth Sputum culture Oxygen therapy Incentive spirometry Suction when necessary (2) History of cancer tonsil Status: Chronic Problem Text: Follow-up with oncologist in the outpatient settings (3) Coronary artery disease Status: Chronic Problem Text: Continue home meds I added aspirin to his regimen (4) History of pulmonary embolus (PE) Status: Chronic Problem Text: Continue oral targeted anticoagulation therapy Plan / VTE VTE Prophylaxis Ordered?: Yes GEETA LEMUS DO Jun 28, 2019 04:20
[2019-06-28] MEDS: LEVOTHYROXINE 100MCG TABLET (0.1MG) GT SCH (06:07)
[2019-06-28] MEDS: NS 1,000 ML IV SCH ×2 (06:08→17:22)
[2019-06-28] MEDS: oxyCODONE 5MG TAB GT PRN ×3 (06:08→14:20)
--- NOTE | 2019-06-28 07:51 | REP ---
Clinical: Trauma. Comparison: 05/19/2019. Findings: Visualized portions of the mediastinum are within normal limits and stable. Chronic elevation to the right hemidiaphragm and diffuse bilateral pleuroparenchymal changes remain stable. No new acute obvious consolidation or effusion. No pneumothorax. Skeletal structures appear intact. Impression: Chronic stable changes. Electronically Signed by Meir Dominguez MD 06/28/2019 07:42 A
[2019-06-28] MEDS: LevoFLOXacin 750 MG TABLET GT SCH (08:55)
[2019-06-28] MEDS: ESCITALOPRAM OXALATE 10 MG TAB (LEXAPRO) FT SCH (08:56)
[2019-06-28] MEDS: APIXABAN 5 MG TAB (ELIQUIS) FT SCH ×2 (08:56→21:43)
[2019-06-28] MEDS ORDERED: oxyCODONE 40 MG CR TAB XX SCH (09:00)
[2019-06-28 13:40] LABS: ABG HCO3 30.5 MEQ/L (22.0-26.0); ABG O2 SATURATION 93.2 % (95.0-99.0); ABG PARTIAL PRESSURE O2 68.1 mmHg (75.0-100.0); ABG PATIENT RESP RATE 18 /MIN; ABG PULSE OX 86; ABG TOTAL CO2 32.3 MEQ/L (23.0-31.0); ABG pH (ARTERIAL) 7.324 UNITS (7.350-7.450)
--- NOTE | 2019-06-28 13:47 | REP ---
Clinical: Hypoxia. Comparison: 06/28/2019, 05/19/2019. Findings: Elevation to the right hemidiaphragm and chronic bibasilar pleuroparenchymal changes are again noted. No pneumothorax. Skeletal structures appear intact. Impression: Stable chronic changes. Electronically Signed by Meir Dominguez MD 06/28/2019 01:39 P
[2019-06-28] MEDS: oxyCODONE 5MG TAB PO PRN ×2 (18:21→22:51)
--- NOTE | 2019-06-28 20:21 | ECGEPIP ---
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
--- NOTE | 2019-06-28 20:53 | IPNPDOC ---
Subjective Date Seen The patient was seen on 06/28/19. Subjective Chief Complaint/HPI When I spoke with the patient in the morning he reported that clinically he is feeling better at this time. He did have a coughing event during the morning which resulted in hypoxemia, however he seems to have recovered from that. Later in the afternoon he had another coughing fit, this time O2 sats were persistently low despite increasing him to 10 L. A chest x-ray was ordered, which was unchanged from prior, and no new areas of atelectasis. ABG at that time was also performed which only revealed chronic respiratory acidosis with appropriate metabolic alkalosis compensation. Vapotherm therapy initiated, and his O2 sats have improved and remained stable throughout the remainder of the day. General: Denies: Chills, Night Sweats, Fatigue, Malaise Constitutional: Denies: Chills, Fever, Night Sweats Eyes: Denies: Pain, Vision change ENT: Reports: Dysphagia; Denies: Head Aches, Ear Pain Skin: Denies: Rash, Lesions, Breakdown Pulmonary: Denies: Dyspnea, Cough Cardiovascular: Denies: Chest Pain, Palpitations, Orthopnea, Paroxysmal Noc. Dyspnea, Lt Headedness Gastrointestinal: Denies: Nausea, Vomiting, Abdominal Pain, Diarrhea, Constipation Genitourinary: Denies: Dysuria, Frequency, Incontinence, Retention Hematologic: Denies: Bruising, Bleeding Excessively Musculoskeletal: Reports: Neck Pain (secondary to radiation); Denies: Back Pain, Joint Pain, Muscle Pain, Spasms Neurological: Denies: Weakness, Numbness, Change in speech, Confusion Psych: Reports: Mood Normal; Denies: Depression, Memory Issues Objective Physical Examination General Exam: Positive: Alert, Moderate Distress Eye Exam: Positive: PERRLA ENT Exam: Positive: Atraumatic, Mucous membr. moist/pink Neck Exam: Positive: Supple; Negative: JVD Chest Exam: Positive: Other (rhonchi heard in the mid right lung field, no sounds at the right base. Left lung clear to auscultation throughout.) Heart Exam: Positive: Rate Normal Telemetry: Positive: Sinus Abdomen Exam: Positive: Normal bowel sounds Extremity Exam: Positive: Clubbing; Negative: Cyanosis Skin Exam: Positive: Nl turgor and temperature Psych Exam: Positive: Mental status NL, Oriented x 3 Assessment /Plan Problems (1) Acute hypoxemic respiratory failure Status: Acute Problem Text: Chest x-ray shows no changes from prior ABG shows chronic respiratory acidosis with appropriate metabolic alkalosis compensation He will have coughing episodes that will drop his sats significantly. Acapella, incentive spirometry started Started on Vapotherm therapy Respiratory panel negative Sputum cultures still pending Levaquin started 06/27/2019 empirically given recent pneumonia secondary to pseudomonas aeruginosa (2) Odynophagia Status: Chronic (3) Dysphagia Status: Chronic Problem Text: Nothing by mouth (4) Protein calorie malnutrition Status: Chronic (5) Chronic pain Status: Chronic Problem Text: Apparently the patient takes oxycodone extended release 40 mg twice a day, and then 10 mg oxycodone 4 times a day PRN. However, he crushes the oxycodone extended release and puts it down the PEG tube, which effectively negates the extended release formulation. I have increased his inpatient dose to 20 mg Q4H PRN, which should roughly be an equivalent dosing. 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 (8) Cough Status: Acute (9) Aspiration into respiratory tract Status: Chronic (10) Pulmonary emboli Status: Acute Response to Treatment: Stable Problem Text: Continue Eliquis Plan/VTE VTE Prophylaxis Ordered?: Yes (Eliquis) VS, I&O, 24H, Fishbone Vital Signs/I&O Vital Signs Date Time Temp Pulse Resp B/P (MAP) Pulse Ox O2 Delivery O2 Flow Rate FiO2 06/28/19 20:00 99.1 113 20 102/64 (77) 94 HVNI-Vapotherm 20.0 60 I&O- Last 24 Hours up to 6 AM 06/28/19 06:00 Intake Total 0 ml Output Total 0 ml Balance 0 ml Laboratory Data 24H LABS Laboratory Tests 2 06/28/19 00:08: Immature Granulocyte % (Auto) 0.3, Neutrophils (%) (Auto) 73.3H, Lymphocytes (%) (Auto) 9.5L, Monocytes (%) (Auto) 13.6H, Eosinophils (%) (Auto) 2.5, Basophils (%) (Auto) 0.8, Neutrophils # (Auto) 4.8, Lymphocytes # (Auto) 0.6L, Monocytes # (Auto) 0.9H, Eosinophils # (Auto) 0.2, Basophils # (Auto) 0.1, Nucleated Red Blood Cells % (auto) 0.0, Total Bilirubin 0.4, Direct Bilirubin 0.2, Aspartate Amino Transf (AST/SGOT) 45H, Alanine Aminotransferase (ALT/SGPT) 82H, Alkaline Phosphatase 105, Total Creatine Kinase 95, Creatine Kinase MB 1.1, Creatine Kinase MB Relative Index 1.16, Troponin I 0.04, Total Protein 6.1L, Albumin 3.1L, Albumin/Globulin Ratio 1.03, Thyroid Stimulating Hormone (TSH) 3.620 06/28/19 00:11: Bedside Glucose (Misc Panel) 112 06/28/19 00:14: POC Glucose (Misc Panel) 112H, POC Sodium (Misc Panel) 136, POC Potassium (Misc Panel) 4.4, POC Chloride (Misc Panel) 92L, POC Total CO2 (Misc Panel) 35.0H, POC Blood Urea Nitrogen (Misc Panel 17, POC Ionized Calcium (Misc Panel) 4.6, POC Creatinine (Misc Panel) 0.9, POC Hematocrit (Misc Panel) 43.0 06/28/19 01:28: Influenza Type A (RT-PCR) NEGATIVE, Influenza Type B (RT-PCR) NEGATIVE 06/28/19 03:19: POC pH (Misc Panel) 7.347L, POC Base Excess (Misc Panel) 12.0H, POC Saturated Percent O2 (Misc) 99H, POC pO2 (Misc Panel) 160.0H, POC pCO2 (Misc Panel) 68.7 *H, POC HCO3 (Misc Panel) 37.7H, POC Total CO2 (Misc Panel) 40.0H 06/28/19 13:21: Blood Gas Bicarbonate Standard 27.0H, Arterial Blood pH 7.324L, Arterial Blood Partial Pressure CO2 60.0H, Arterial Blood Partial Pressure O2 68.1L, Arterial Blood Total CO2 32.3H, Arterial Blood HCO3 30.5H, Arterial Blood Base Excess 3.0H, Arterial Blood Oxygen Saturation 93.2L, Arterial Blood Gas Respiration Rate 18, Arterial Blood Gas Oximetry 86 CBC/BMP Laboratory Tests 06/28/19 00:08 Microbiology Microbiology 06/28/19 Respiratory Virus Panel (PCR) ([facility]) - Final, Complete FELY VERAS DO Jun 28, 2019 20:53
[2019-06-28] MEDS: ATORVASTATIN 20 MG TAB GT SCH (21:43)
[2019-06-29] VITALS (19 sets, daily range): BP systolic 114–140; BP diastolic 58–79; PULSE 82; O2SAT 88–96
[2019-06-29] MEDS: NS 1,000 ML IV SCH (02:47)
[2019-06-29] MEDS: oxyCODONE 5MG TAB PO PRN ×6 (02:48→23:44)
[2019-06-29] MEDS: IPRATROPIUM 0.5MG/ALBUTEROL 2.5MG INH SOL UD 3ML (DUONEB)(J7620) NEB SCH ×6 (04:00→20:34)
[2019-06-29 06:01] LABS: HEMATOCRIT 37.4 % (42.0-52.0); HEMOGLOBIN 11.8 g/dl (13.5-17.5); MEAN CORPUSCULAR HEMOGLOBIN 31.8 pg (27.0-33.0); MEAN CORPUSCULAR HGB CONC 31.6 g/dl (32.0-36.5); MEAN CORPUSCULAR VOLUME 100.8 fl (80.0-96.0); PLATELET COUNT, AUTOMATED 108 10^3/uL (150-450); RED BLOOD COUNT 3.71 10^6/uL (4.30-6.10); WHITE BLOOD COUNT 6.1 10^3/uL (4.0-10.0)
[2019-06-29] MEDS: LEVOTHYROXINE 100MCG TABLET (0.1MG) GT SCH (06:12)
[2019-06-29 06:27] LABS: BLOOD UREA NITROGEN 16 MG/DL (7-18); CALCIUM LEVEL 8.2 MG/DL (8.8-10.2); CARBON DIOXIDE LEVEL 34 MEQ/L (21-32); CHLORIDE LEVEL 100 MEQ/L (98-107); CREATININE FOR GFR 0.62 MG/DL (0.70-1.30); GLOMERULAR FILTRATION RATE > 60.0 (>49); GLUCOSE, FASTING 113 MG/DL (70-100); MAGNESIUM LEVEL 2.2 MG/DL (1.8-2.4); POTASSIUM SERUM 4.2 MEQ/L (3.5-5.1); SODIUM LEVEL 134 MEQ/L (136-145)
[2019-06-29] MEDS: LevoFLOXacin 750 MG TABLET GT SCH (09:28)
[2019-06-29] MEDS: APIXABAN 5 MG TAB (ELIQUIS) FT SCH ×2 (09:28→19:49)
[2019-06-29] MEDS: ESCITALOPRAM OXALATE 10 MG TAB (LEXAPRO) FT SCH (09:28)
[2019-06-29] MEDS ORDERED: ISOVUE-370 76% 100ML VIAL (Q9967) As Ordered ONE (13:32)
--- NOTE | 2019-06-29 14:01 | REP ---
Clinical: Chest pain . Technique: Axial contrast enhanced images from the thoracic inlet to the upper abdomen using 75 ml Isovue 370 intravenous contrast material with multiplanar re-formations. Findings: Satisfactory enhancement of the pulmonary vasculature is achieved and no filling defects are identified to suggest pulmonary embolus. Atherosclerotic changes to the thoracic aorta noted without aneurysm or dissection. No cardiomegaly or pericardial effusion. There appears to be complete consolidation / collapse to the right lower lobe and near complete consolidation of the right middle lobe along with small area of consolidation involving the left lower lobe and trace atelectasis to the lingula. Small right pleural effusion noted. Subtle reactive adenopathy is suggested. Musculoskeletal structures demonstrate age-related changes. Impression: 1. No evidence for pulmonary embolus. 2. Near complete collapse/consolidation involving the right lower lobe and right middle lobe along with small area of consolidation involving the left lower lobe and small right pleural effusion. Electronically Signed by Meir Dominguez MD 06/29/2019 01:52 P
--- NOTE | 2019-06-29 15:15 | REP ---
FLUOROSCOPIC SNIFF TEST. HISTORY: Elevated right hemidiaphragm. Comparison chest x-ray: June 28, 2019. FINDINGS: The patient was seated and PA fluoroscopy was obtained during sniffing. The right hemidiaphragm is markedly elevated as seen radiographically. The left hemidiaphragm demonstrates normal amplitude and direction of descent with sniffing. On the right diaphragm moves very little but in a downward direction with sniffing. IMPRESSION: Markedly elevated right hemidiaphragm with markedly decreased amplitude of motion with sniffing. There is no evidence of paradoxical motion. 0.5 minutes of fluoroscopy time was utilized. Electronically Signed by Gunner Camara MD 06/29/2019 04:28 P
[2019-06-29 15:17] LABS: ABG BASE EXCESS 3.8 (-2.0-2.0); ABG HCO3 31.1 MEQ/L (22.0-26.0); ABG O2 SATURATION 97.1 % (95.0-99.0); ABG PARTIAL PRESSURE CO2 59.5 mmHg (35.0-45.0); ABG PARTIAL PRESSURE O2 85.9 mmHg (75.0-100.0); ABG STANDARD HCO3 27.8 MEQ/L (22.0-26.0); ABG TOTAL CO2 32.9 MEQ/L (23.0-31.0); ABG pH (ARTERIAL) 7.336 UNITS (7.350-7.450)
[2019-06-29] MEDS: PIPERACILLIN/TAZOBACTAM SOD 3.375 GM in D5W MINI-BAG PLUS 50 ML IV SCH ×2 (15:34→19:49)
[2019-06-29] MEDS: SODIUM CHLORIDE HYPERTONIC 3% 15ML NEB SOL INH SCH ×2 (15:44→20:34)
--- NOTE | 2019-06-29 18:47 | IPNPDOC ---
Date Seen The patient was seen on 06/29/19. Progress Note SUBJECTIVE: 78-year-old male with past medical history of tonsillar cancer status post chemoradiation with development of esophageal stricture subsequent PEG tube placement, pulmonary embolism on anticoagulation, hypothyroidism, COPD on home oxygen and hyperlipidemia was admitted for acute hypoxemic respiratory failure. Patient has a history of noncompliance when at home and usually aspirates. Patient chest X-ray shows elevated right hemidiaphragm, currently on Vapotherm requiring 60% FiO2 to maintain adequate saturation. Patient is usually on 2 L of oxygen at home. Patient also reports a cough along with shortness of breath, no other symptoms. He denies any chest pain, nausea, vomiting, abdominal pain or diarrhea. He does report bilateral lower extremity edema, started recently. 10 point review of system is negative except for above PHYSICAL EXAMINATION: VITAL SIGNS: Please see below. GENERAL: No distress HEENT: Normocephalic, atraumatic, moist mucous membranes NECK: Supple CARDIOVASCULAR EXAMINATION: S1, S2, no murmurs RESPIRATORY EXAMINATION: Diminished/absent in the right lower lung, scattered rhonchi ABDOMINAL EXAMINATION: Soft, nontender, nondistended, positive bowel sounds EXTREMITIES: Bilateral lower extremity pitting edema SKIN: No rash NEUROLOGICAL EXAMINATION: Alert and oriented 3, no focal deficits PSYCHIATRIC EXAMINATION: Calm and cooperative LABORATORY DATA, IMAGING STUDIES, MICROBIOLOGY: Please see below. ASSESSMENT AND PLAN: 68-year-old male with multiple medical comorbidities is admitted for acute hypoxia, respiratory failure secondary to likely aspiration. PROBLEMS: 1. Acute hypoxemic respiratory failure: History of noncompliance with aspiration at home, chest x-ray showing elevated right hemidiaphragm with possible right lower lobe consolidation concerning for aspiration. Will obtain CTA chest to assess and rule out PE at the same time, empiric Zosyn, cultures pending, continue Vapotherm, titrate oxygen needs to maintain O2 saturation between 80- 92%, hypertonic saline nebs, chest PT. 2. Tonsillar cancer: Status post chemoradiation and PEG tube placement, continue tube feeds, nothing by mouth. 3. Hypothyroidism: Continue levothyroxine. 4. Pulmonary embolism: Continue Eliquis DVT prophylaxis: On Eliquis GI prophylaxis: Not needed VS, I&O, 24H, Fishbone Vital Signs/I&O Vital Signs Date Time Temp Pulse Resp B/P (MAP) Pulse Ox O2 Delivery O2 Flow Rate FiO2 06/29/19 16:04 16 HVNI-Vapotherm 25.0 65 06/29/19 16:00 99.0 92 126/70 (88) 87 I&O- Last 24 Hours up to 6 AM 06/29/19 06:00 Intake Total 1530 ml Output Total 650 ml Balance 880 ml Laboratory Data 24H LABS Laboratory Tests 2 06/29/19 05:22: Nucleated Red Blood Cells % (auto) 0.0, Anion Gap 0L, Glomerular Filtration Rate > 60.0, Calcium Level 8.2L, Magnesium Level 2.2 06/29/19 15:08: Blood Gas Bicarbonate Standard 27.8H, Arterial Blood pH 7.336L, Arterial Blood Partial Pressure CO2 59.5H, Arterial Blood Partial Pressure O2 85.9, Arterial Blood Total CO2 32.9H, Arterial Blood HCO3 31.1H, Arterial Blood Base Excess 3.8H, Arterial Blood Oxygen Saturation 97.1 CBC/BMP Laboratory Tests 06/29/19 05:22 Microbiology Microbiology 06/28/19 Respiratory Virus Panel (PCR) ([facility]) - Final, Complete ADRIANA BERMAN MD Jun 29, 2019 18:47
[2019-06-29] MEDS: ATORVASTATIN 20 MG TAB GT SCH (19:49)
[2019-06-30] VITALS (24 sets, daily range): BP systolic 104–140; BP diastolic 52–81; O2SAT 86–97
[2019-06-30] MEDS: IPRATROPIUM 0.5MG/ALBUTEROL 2.5MG INH SOL UD 3ML (DUONEB)(J7620) NEB SCH ×6 (04:00→21:14)
[2019-06-30] MEDS: SODIUM CHLORIDE HYPERTONIC 3% 15ML NEB SOL INH SCH ×6 (04:00→21:14)
[2019-06-30] MEDS: oxyCODONE 5MG TAB PO PRN ×4 (04:01→18:00)
[2019-06-30] MEDS: PIPERACILLIN/TAZOBACTAM SOD 3.375 GM in D5W MINI-BAG PLUS 50 ML IV SCH ×4 (04:01→20:25)
[2019-06-30 05:46] LABS: HEMATOCRIT 38.1 % (42.0-52.0); HEMOGLOBIN 12.2 g/dl (13.5-17.5); RED BLOOD COUNT 3.81 10^6/uL (4.30-6.10); WHITE BLOOD COUNT 11.3 10^3/uL (4.0-10.0)
[2019-06-30] MEDS: LEVOTHYROXINE 100MCG TABLET (0.1MG) GT SCH (05:52)
[2019-06-30 06:04] LABS: BLOOD UREA NITROGEN 15 MG/DL (7-18); CREATININE FOR GFR 0.77 MG/DL (0.70-1.30); GLOMERULAR FILTRATION RATE > 60.0 (>49); GLUCOSE, FASTING 147 MG/DL (70-100); SODIUM LEVEL 135 MEQ/L (136-145)
[2019-06-30 06:05] LABS: CALCIUM LEVEL 8.1 MG/DL (8.8-10.2); CARBON DIOXIDE LEVEL 35 MEQ/L (21-32); CHLORIDE LEVEL 99 MEQ/L (98-107); MAGNESIUM LEVEL 2.3 MG/DL (1.8-2.4); PHOSPHORUS LEVEL 1.7 MG/DL (2.5-4.9); POTASSIUM SERUM 4.5 MEQ/L (3.5-5.1)
[2019-06-30 06:16] LABS: PLATELET COUNT, AUTOMATED 96 10^3/uL (150-450)
--- NOTE | 2019-06-30 09:07 | REP ---
Clinical: Pneumonia. Comparison: 06/28/2019. Findings: Elevation to the right hemidiaphragm is again noted with superimposed right lower lobe atelectasis and small pleural effusion. Left lower lobe/retrocardiac consolidation and small effusion are also suggested. No pneumothorax. Impression: Right lower lobe consolidation and effusion. Left lower lobe/retrocardiac consolidation and small left effusion. Findings are comparable to those identified on recent CT dated 06/29/2019. Electronically Signed by Meir Dominguez MD 06/30/2019 08:59 A
[2019-06-30] MEDS: APIXABAN 5 MG TAB (ELIQUIS) FT SCH ×2 (09:56→20:25)
[2019-06-30] MEDS: ESCITALOPRAM OXALATE 10 MG TAB (LEXAPRO) FT SCH (09:57)
[2019-06-30] MEDS ORDERED: SODIUM PHOSPHATE INJ 30 MMOL in D5W 500 ML IV ONE (11:00)
[2019-06-30] MEDS: MORPHINE 4 MG/ML 1ML VIAL/SYRINGE (J2270) IV PRN ×3 (11:54→23:56)
--- NOTE | 2019-06-30 18:09 | IPNPDOC ---
Date Seen The patient was seen on 06/30/19. Progress Note SUBJECTIVE: 78-year-old male with past medical history of tonsillar cancer status post chemoradiation with development of esophageal stricture subsequent PEG tube placement, pulmonary embolism on anticoagulation, hypothyroidism, COPD on home oxygen and hyperlipidemia was admitted for acute hypoxemic respiratory failure. Patient has a history of noncompliance when at home and usually aspirates. Patient chest X-ray shows elevated right hemidiaphragm, currently on Vapotherm requiring 60% FiO2 to maintain adequate saturation. Patient is usually on 2 L of oxygen at home. Patient also reports a cough along with shortness of breath, no other symptoms. He denies any chest pain, nausea, vomiting, abdominal pain or diarrhea. He does report bilateral lower extremity edema, started recently. 06/30/19 Patient seen in the morning, reports improvement in symptoms from yesterday, not requiring slightly increased amount of FiO2, up to 65% today. Patient reports improvement in dyspnea after starting hypertonic saline times and chest PT yesterday, having copious amounts of productive cough. Patient is otherwise without any complaints, denies any chest pain, nausea, vomiting, abdominal pain or diarrhea. 10 point review of system is negative except for above PHYSICAL EXAMINATION: VITAL SIGNS: Please see below. GENERAL: No distress HEENT: Normocephalic, atraumatic, moist mucous membranes NECK: Supple CARDIOVASCULAR EXAMINATION: S1, S2, no murmurs RESPIRATORY EXAMINATION: Diminished/absent in the right lower lung, scattered rhonchi ABDOMINAL EXAMINATION: Soft, nontender, nondistended, positive bowel sounds EXTREMITIES: Bilateral lower extremity pitting edema SKIN: No rash NEUROLOGICAL EXAMINATION: Alert and oriented 3, no focal deficits PSYCHIATRIC EXAMINATION: Calm and cooperative LABORATORY DATA, IMAGING STUDIES, MICROBIOLOGY: Please see below. ASSESSMENT AND PLAN: 68-year-old male with multiple medical comorbidities is admitted for acute hypoxia, respiratory failure secondary to likely aspiration. PROBLEMS: 1. Acute hypoxemic respiratory failure: Secondary to aspiration pneumonia leading to right middle and lower lobe collapse, continue hypertonic saline nebs with chest PT, empiric Zosyn, cultures pending, continue Vapotherm, titrate oxygen needs to maintain O2 saturation between 80-92%, hypertonic saline nebs. Repeat chest x-ray tomorrow morning, pulmonary service is not available at this time. 2. Tonsillar cancer: Status post chemoradiation and PEG tube placement, continue tube feeds, nothing by mouth. 3. Hypothyroidism: Continue levothyroxine. 4. Pulmonary embolism: Continue Eliquis DVT prophylaxis: On Eliquis GI prophylaxis: Not needed VS, I&O, 24H, Fishbone Vital Signs/I&O Vital Signs Date Time Temp Pulse Resp B/P (MAP) Pulse Ox O2 Delivery O2 Flow Rate FiO2 06/30/19 18:00 18 06/30/19 16:43 92 HVNI-Vapotherm 30.0 55 06/30/19 16:00 98.2 71 104/60 (75) I&O- Last 24 Hours up to 6 AM 06/30/19 06:00 Intake Total 1820 ml Output Total 0 ml Balance 1820 ml Laboratory Data 24H LABS Laboratory Tests 2 06/30/19 05:14: Nucleated Red Blood Cells % (auto) 0.0, Immature Platelet Fraction 4.7, Anion Gap 1L, Glomerular Filtration Rate > 60.0, Calcium Level 8.1L, Phosphorus Level 1.7L, Magnesium Level 2.3 CBC/BMP Laboratory Tests 06/30/19 05:14 Microbiology Microbiology 06/28/19 Respiratory Virus Panel (PCR) ([facility]) - Final, Complete ADRIANA BERMAN MD Jun 30, 2019 18:09
[2019-06-30] MEDS: ATORVASTATIN 20 MG TAB GT SCH (20:25)
[2019-07-01] VITALS (18 sets, daily range): BP systolic 103–137; BP diastolic 59–80; O2SAT 88–99
[2019-07-01] MEDS: oxyCODONE 5MG TAB PO PRN ×5 (01:14→21:21)
[2019-07-01] MEDS: SODIUM CHLORIDE HYPERTONIC 3% 15ML NEB SOL INH SCH ×7 (04:00→23:49)
[2019-07-01] MEDS: IPRATROPIUM 0.5MG/ALBUTEROL 2.5MG INH SOL UD 3ML (DUONEB)(J7620) NEB SCH ×7 (04:00→23:49)
[2019-07-01] MEDS: PIPERACILLIN/TAZOBACTAM SOD 3.375 GM in D5W MINI-BAG PLUS 50 ML IV SCH ×4 (05:05→21:21)
[2019-07-01] MEDS: LEVOTHYROXINE 100MCG TABLET (0.1MG) GT SCH (05:05)
[2019-07-01 07:07] LABS: HEMOGLOBIN 12.3 g/dl (13.5-17.5); MEAN CORPUSCULAR HEMOGLOBIN 31.2 pg (27.0-33.0); MEAN CORPUSCULAR HGB CONC 31.5 g/dl (32.0-36.5); RED BLOOD COUNT 3.94 10^6/uL (4.30-6.10); WHITE BLOOD COUNT 9.5 10^3/uL (4.0-10.0)
[2019-07-01 07:08] LABS: PLATELET COUNT, AUTOMATED 93 10^3/uL (150-450)
[2019-07-01 07:34] LABS: ALBUMIN 2.3 GM/DL (3.2-5.2); ALT/SGPT 45 U/L (12-78); BILIRUBIN,TOTAL 0.3 MG/DL (0.2-1.0); BLOOD UREA NITROGEN 15 MG/DL (7-18); CALCIUM LEVEL 8.3 MG/DL (8.8-10.2); CARBON DIOXIDE LEVEL 37 MEQ/L (21-32); CHLORIDE LEVEL 98 MEQ/L (98-107); CREATININE FOR GFR 0.71 MG/DL (0.70-1.30); GLOMERULAR FILTRATION RATE > 60.0 (>49); GLUCOSE, FASTING 139 MG/DL (70-100); POTASSIUM SERUM 4.5 MEQ/L (3.5-5.1); SODIUM LEVEL 136 MEQ/L (136-145)
[2019-07-01] MEDS: MORPHINE 4 MG/ML 1ML VIAL/SYRINGE (J2270) IV PRN ×4 (07:52→22:56)
[2019-07-01] MEDS: ESCITALOPRAM OXALATE 10 MG TAB (LEXAPRO) FT SCH (08:01)
[2019-07-01] MEDS: APIXABAN 5 MG TAB (ELIQUIS) FT SCH ×2 (08:02→21:20)
--- NOTE | 2019-07-01 12:21 | REP ---
PORTABLE CHEST X-RAY: Single view. HISTORY: Mucous plugging. COMPARISON STUDY: June 30, 2019. FINDINGS: Oxygen delivery tubing and EKG monitoring electrodes overlie the chest. There is a large amount of pleural opacity in the lower half of the right hemithorax consistent with right pleural effusion in combination with markedly elevated right hemidiaphragm. There is plate-like atelectasis in the left base which is little more prominent than on the 06/28/2019 prior study. Pulmonary vasculature is a little cephalized. There is plate-like atelectasis in the right base above the elevated diaphragm. IMPRESSION: Bibasilar atelectasis. Elevated right hemidiaphragm. Small right pleural effusion. Cephalization. Electronically Signed by Gunner Camara MD 07/01/2019 05:05 P
[2019-07-01] MEDS: FUROSEMIDE 40 MG/4 ML VIAL (J1940) IV SCH ×2 (12:32→16:55)
--- NOTE | 2019-07-01 13:02 | IPNPDOC ---
Date Seen The patient was seen on 07/01/19. Progress Note SUBJECTIVE: 78-year-old male with past medical history of tonsillar cancer status post chemoradiation with development of esophageal stricture subsequent PEG tube placement, pulmonary embolism on anticoagulation, hypothyroidism, COPD on home oxygen and hyperlipidemia was admitted for acute hypoxemic respiratory failure. Patient has a history of noncompliance when at home and usually aspirates. Patient chest X-ray shows elevated right hemidiaphragm, currently on Vapotherm requiring 60% FiO2 to maintain adequate saturation. Patient is usually on 2 L of oxygen at home. Patient also reports a cough along with shortness of breath, no other symptoms. He denies any chest pain, nausea, vomiting, abdominal pain or diarrhea. He does report bilateral lower extremity edema, started recently. 06/30/19 Patient seen in the morning, reports improvement in symptoms from yesterday, not requiring slightly increased amount of FiO2, up to 65% today. Patient reports improvement in dyspnea after starting hypertonic saline times and chest PT yesterday, having copious amounts of productive cough. Patient is otherwise without any complaints, denies any chest pain, nausea, vomiting, abdominal pain or diarrhea. 07/01/19 Patient seen in the morning, reports improvement from yesterday, continues to have copious amounts of secretions with cough, no other complaints. He refused a couple of his breathing treatments overnight because he did not want this to be disturbing his sleep. He denies any chest pain, nausea, vomiting, abdominal pain, diarrhea. 10 point review of system is negative except for above PHYSICAL EXAMINATION: VITAL SIGNS: Please see below. GENERAL: No distress HEENT: Normocephalic, atraumatic, moist mucous membranes NECK: Supple CARDIOVASCULAR EXAMINATION: S1, S2, no murmurs RESPIRATORY EXAMINATION: Diminished/absent in the right lower lung, scattered rhonchi ABDOMINAL EXAMINATION: Soft, nontender, nondistended, positive bowel sounds EXTREMITIES: Bilateral lower extremity pitting edema SKIN: No rash NEUROLOGICAL EXAMINATION: Alert and oriented 3, no focal deficits PSYCHIATRIC EXAMINATION: Calm and cooperative LABORATORY DATA, IMAGING STUDIES, MICROBIOLOGY: Please see below. ASSESSMENT AND PLAN: 68-year-old male with multiple medical comorbidities is admitted for acute hypoxia, respiratory failure secondary to likely aspiration. PROBLEMS: 1. Acute hypoxemic respiratory failure: Secondary to aspiration pneumonia leading to right middle and lower lobe collapse, continue hypertonic saline nebs with chest PT, Zosyn, cultures negative, continue Vapotherm, titrate oxygen needs to maintain O2 saturation between 80-92%. Repeat chest x-ray without significant change, pulmonary service is not available at this time. Patient volume overloaded and third spacing, decrease free water flushes and will attempt diuresis with IV Lasix. 2. Tonsillar cancer: Status post chemoradiation and PEG tube placement, continue tube feeds, nothing by mouth. 3. Hypothyroidism: Continue levothyroxine. 4. Pulmonary embolism: Continue Eliquis DVT prophylaxis: On Eliquis GI prophylaxis: Not needed VS, I&O, 24H, Fishbone Vital Signs/I&O Vital Signs Date Time Temp Pulse Resp B/P (MAP) Pulse Ox O2 Delivery O2 Flow Rate FiO2 07/01/19 12:34 120/70 (87) 07/01/19 12:00 98.0 77 14 89 HVNI-Vapotherm 30.0 55 I&O- Last 24 Hours up to 6 AM 07/01/19 06:00 Intake Total 2720 ml Output Total 1470 ml Balance 1250 ml Laboratory Data 24H LABS Laboratory Tests 2 07/01/19 06:39: Nucleated Red Blood Cells % (auto) 0.0, Immature Platelet Fraction 5.0, Anion Gap 1L, Glomerular Filtration Rate > 60.0, Calcium Level 8.3L, Total Bilirubin 0.3, Aspartate Amino Transf (AST/SGOT) 31, Alanine Aminotransferase (ALT/SGPT) 45, Alkaline Phosphatase 94, Total Protein 6.0L, Albumin 2.3L, Albumin/Globulin Ratio 0.62L CBC/BMP Laboratory Tests 07/01/19 06:39 Microbiology Microbiology 06/28/19 Respiratory Virus Panel (PCR) ([facility]) - Final, Complete ADRIANA BERMAN MD Jul 01, 2019 13:02
[2019-07-01] MEDS: ATORVASTATIN 20 MG TAB GT SCH (21:20)
[2019-07-02] VITALS (16 sets, daily range): BP systolic 102–133; BP diastolic 58–96; O2SAT 90–97
[2019-07-02] MEDS: PIPERACILLIN/TAZOBACTAM SOD 3.375 GM in D5W MINI-BAG PLUS 50 ML IV SCH ×4 (04:26→22:15)
[2019-07-02] MEDS: oxyCODONE 5MG TAB PO PRN ×5 (04:27→22:16)
[2019-07-02] MEDS: SODIUM CHLORIDE HYPERTONIC 3% 15ML NEB SOL INH SCH ×6 (04:29→23:45)
[2019-07-02] MEDS: IPRATROPIUM 0.5MG/ALBUTEROL 2.5MG INH SOL UD 3ML (DUONEB)(J7620) NEB SCH ×6 (04:29→23:45)
[2019-07-02 06:19] LABS: HEMATOCRIT 36.9 % (42.0-52.0); HEMOGLOBIN 11.9 g/dl (13.5-17.5); MEAN CORPUSCULAR HEMOGLOBIN 31.5 pg (27.0-33.0); MEAN CORPUSCULAR HGB CONC 32.2 g/dl (32.0-36.5); MEAN CORPUSCULAR VOLUME 97.6 fl (80.0-96.0); RED BLOOD COUNT 3.78 10^6/uL (4.30-6.10); WHITE BLOOD COUNT 6.2 10^3/uL (4.0-10.0)
[2019-07-02 06:21] LABS: PLATELET COUNT, AUTOMATED 90 10^3/uL (150-450)
[2019-07-02] MEDS: MORPHINE 4 MG/ML 1ML VIAL/SYRINGE (J2270) IV PRN ×4 (06:44→20:29)
[2019-07-02] MEDS: LEVOTHYROXINE 100MCG TABLET (0.1MG) GT SCH (06:44)
[2019-07-02 06:45] LABS: BLOOD UREA NITROGEN 16 MG/DL (7-18); CALCIUM LEVEL 7.9 MG/DL (8.8-10.2); CARBON DIOXIDE LEVEL 44 MEQ/L (21-32); CHLORIDE LEVEL 94 MEQ/L (98-107); CREATININE FOR GFR 0.73 MG/DL (0.70-1.30); GLOMERULAR FILTRATION RATE > 60.0 (>49); GLUCOSE, FASTING 131 MG/DL (70-100); POTASSIUM SERUM 3.4 MEQ/L (3.5-5.1); SODIUM LEVEL 138 MEQ/L (136-145)
[2019-07-02 08:44] LABS: ABG pH (ARTERIAL) 7.421 UNITS (7.350-7.450)
[2019-07-02 08:45] LABS: ABG BASE EXCESS 14.9 (-2.0-2.0); ABG HCO3 42.2 MEQ/L (22.0-26.0); ABG O2 SATURATION 97.8 % (95.0-99.0); ABG PARTIAL PRESSURE CO2 66.4 mmHg (35.0-45.0); ABG PARTIAL PRESSURE O2 99.5 mmHg (75.0-100.0); ABG STANDARD HCO3 38.7 MEQ/L (22.0-26.0); ABG TOTAL CO2 44.2 MEQ/L (23.0-31.0)
[2019-07-02] MEDS: FUROSEMIDE 40 MG/4 ML VIAL (J1940) IV SCH ×2 (09:16→18:00)
[2019-07-02] MEDS: POTASSIUM CHLORIDE 10 MEQ SR TABLET PO SCH ×2 (09:17→13:27)
[2019-07-02] MEDS: ESCITALOPRAM OXALATE 10 MG TAB (LEXAPRO) FT SCH (09:17)
[2019-07-02] MEDS: APIXABAN 5 MG TAB (ELIQUIS) FT SCH ×2 (09:19→20:28)
[2019-07-02] MEDS ORDERED: SLF 3 ML SYR IV PRN (11:30)
[2019-07-02] MEDS: SLF 3 ML SYR IV SCH ×2 (15:23→20:28)
[2019-07-02] MEDS ORDERED: POTASSIUM CHLORIDE 10% LIQ 20 MEQ/15 ML UDC GT ONE (20:00)
[2019-07-02] MEDS: ATORVASTATIN 20 MG TAB GT SCH (20:28)
--- NOTE | 2019-07-02 22:04 | IPNPDOC ---
Date Seen The patient was seen on 07/02/19. Progress Note SUBJECTIVE: 78-year-old male with past medical history of tonsillar cancer status post chemoradiation with development of esophageal stricture subsequent PEG tube placement, pulmonary embolism on anticoagulation, hypothyroidism, COPD on home oxygen and hyperlipidemia was admitted for acute hypoxemic respiratory failure. Patient has a history of noncompliance when at home and usually aspirates. Patient chest X-ray shows elevated right hemidiaphragm, currently on Vapotherm requiring 60% FiO2 to maintain adequate saturation. Patient is usually on 2 L of oxygen at home. Patient also reports a cough along with shortness of breath, no other symptoms. He denies any chest pain, nausea, vomiting, abdominal pain or diarrhea. He does report bilateral lower extremity edema, started recently. 06/30/19 Patient seen in the morning, reports improvement in symptoms from yesterday, not requiring slightly increased amount of FiO2, up to 65% today. Patient reports improvement in dyspnea after starting hypertonic saline times and chest PT yesterday, having copious amounts of productive cough. Patient is otherwise without any complaints, denies any chest pain, nausea, vomiting, abdominal pain or diarrhea. 07/01/19 Patient seen in the morning, reports improvement from yesterday, continues to have copious amounts of secretions with cough, no other complaints. He refused a couple of his breathing treatments overnight because he did not want this to be disturbing his sleep. He denies any chest pain, nausea, vomiting, abdominal pain, diarrhea. 07/02/19 Patient seen in the morning, continues to improve daily, Fio2 down to 45%, good urine output, no other complaints. 10 point review of system is negative except for above PHYSICAL EXAMINATION: VITAL SIGNS: Please see below. GENERAL: No distress HEENT: Normocephalic, atraumatic, moist mucous membranes NECK: Supple CARDIOVASCULAR EXAMINATION: S1, S2, no murmurs RESPIRATORY EXAMINATION: Diminished in the right lower lung, scattered rhonchi ABDOMINAL EXAMINATION: Soft, nontender, nondistended, positive bowel sounds EXTREMITIES: Bilateral lower extremity edema improved SKIN: No rash NEUROLOGICAL EXAMINATION: Alert and oriented 3, no focal deficits PSYCHIATRIC EXAMINATION: Calm and cooperative LABORATORY DATA, IMAGING STUDIES, MICROBIOLOGY: Please see below. ASSESSMENT AND PLAN: 68-year-old male with multiple medical comorbidities is admitted for acute hypoxia, respiratory failure secondary to likely aspiration. PROBLEMS: 1. Acute hypoxemic respiratory failure: Secondary to aspiration pneumonia leading to right middle and lower lobe collapse, continue hypertonic saline nebs with chest PT, Zosyn, cultures negative, continue Vapotherm, titrate oxygen needs to maintain O2 saturation between 88-92%. Repeat chest x-ray tomorrow m orning, pulmonary service is not available at this time. Diuresis adequate, discontinue Lasix after today. 2. Tonsilar cancer: Status post chemoradiation and PEG tube placement, continue tube feeds, nothing by mouth. 3. Hypothyroidism: Continue levothyroxine. 4. Pulmonary embolism: Continue Eliquis DVT prophylaxis: On Eliquis GI prophylaxis: Not needed VS, I&O, 24H, Fishbone Vital Signs/I&O Vital Signs Date Time Temp Pulse Resp B/P (MAP) Pulse Ox O2 Delivery O2 Flow Rate FiO2 07/02/19 20:40 14 07/02/19 20:00 30.0 45 07/02/19 20:00 97 07/02/19 20:00 HVNI-Vapotherm 07/02/19 16:00 97.0 69 102/64 (77) I&O- Last 24 Hours up to 6 AM 07/02/19 06:00 Intake Total 1090 ml Output Total 2495 ml Balance -1405 ml Laboratory Data 24H LABS Laboratory Tests 2 07/02/19 05:57: Nucleated Red Blood Cells % (auto) 0.0, Anion Gap 0L, Glomerular Filtration Rate > 60.0, Calcium Level 7.9L 07/02/19 08:33: Blood Gas Bicarbonate Standard 38.7H, Arterial Blood pH 7.421, Arterial Blood Partial Pressure CO2 66.4*H, Arterial Blood Partial Pressure O2 99.5, Arterial Blood Total CO2 44.2H, Arterial Blood HCO3 42.2H, Arterial Blood Base Excess 14.9H, Arterial Blood Oxygen Saturation 97.8 CBC/BMP Laboratory Tests 07/02/19 05:57 Microbiology Microbiology 06/28/19 Respiratory Virus Panel (PCR) ([facility]) - Final, Complete ADRIANA BERMAN MD Jul 02, 2019 22:04
[2019-07-03] VITALS (19 sets, daily range): BP systolic 103–134; BP diastolic 55–72; O2SAT 93–97
[2019-07-03] MEDS: MORPHINE 4 MG/ML 1ML VIAL/SYRINGE (J2270) IV PRN ×5 (01:26→21:33)
[2019-07-03] MEDS: PIPERACILLIN/TAZOBACTAM SOD 3.375 GM in D5W MINI-BAG PLUS 50 ML IV SCH ×4 (03:57→21:19)
[2019-07-03] MEDS: oxyCODONE 5MG TAB PO PRN ×3 (03:58→20:20)
[2019-07-03] MEDS: SODIUM CHLORIDE HYPERTONIC 3% 15ML NEB SOL INH SCH ×6 (04:19→23:37)
[2019-07-03] MEDS: IPRATROPIUM 0.5MG/ALBUTEROL 2.5MG INH SOL UD 3ML (DUONEB)(J7620) NEB SCH ×6 (04:19→23:37)
[2019-07-03] MEDS: LEVOTHYROXINE 100MCG TABLET (0.1MG) GT SCH (05:41)
[2019-07-03] MEDS: SLF 3 ML SYR IV SCH ×3 (05:42→21:19)
[2019-07-03 05:48] LABS: HEMATOCRIT 36.5 % (42.0-52.0); HEMOGLOBIN 11.8 g/dl (13.5-17.5); MEAN CORPUSCULAR HEMOGLOBIN 31.6 pg (27.0-33.0); MEAN CORPUSCULAR HGB CONC 32.3 g/dl (32.0-36.5); MEAN CORPUSCULAR VOLUME 97.9 fl (80.0-96.0); PLATELET COUNT, AUTOMATED 108 10^3/uL (150-450); RED BLOOD COUNT 3.73 10^6/uL (4.30-6.10); WHITE BLOOD COUNT 4.7 10^3/uL (4.0-10.0)
[2019-07-03 06:07] LABS: BLOOD UREA NITROGEN 18 MG/DL (7-18); CALCIUM LEVEL 8.4 MG/DL (8.8-10.2); CARBON DIOXIDE LEVEL 45 MEQ/L (21-32); CHLORIDE LEVEL 93 MEQ/L (98-107); CREATININE FOR GFR 0.79 MG/DL (0.70-1.30); GLOMERULAR FILTRATION RATE > 60.0 (>49); GLUCOSE, FASTING 145 MG/DL (70-100); POTASSIUM SERUM 3.5 MEQ/L (3.5-5.1); SODIUM LEVEL 139 MEQ/L (136-145)
[2019-07-03] MEDS ORDERED: POTASSIUM CHLORIDE 10 MEQ SR TABLET PO ONE (08:00)
--- NOTE | 2019-07-03 08:16 | REP ---
Portable chest, 07/03/2019, single AP view with the patient semi upright, 07:17 a.m.: Comparisons are the chest CT dated 06/29/2019 and portable chest dated 07/01/2019. The right hemidiaphragm is elevated. On the comparison CT there is a right lower lobe infiltrate and right pleural effusion. There is a small infiltrates in the left lower lobe, better identified on the comparison CT. The lung chaidez otherwise clear. Cardiac size is normal. The selina, mediastinum, skeletal structures are unremarkable. Impression: Elevated right hemidiaphragm. Right lower lobe infiltrate and pleural effusion. Small left lower lobe infiltrate. Electronically Signed by Sunny Ortega MD 07/03/2019 08:08 A
[2019-07-03] MEDS: ESCITALOPRAM OXALATE 10 MG TAB (LEXAPRO) FT SCH (09:19)
[2019-07-03] MEDS: APIXABAN 5 MG TAB (ELIQUIS) FT SCH ×2 (09:20→20:19)
--- NOTE | 2019-07-03 19:05 | IPNPDOC ---
Date Seen The patient was seen on 07/03/19. Progress Note SUBJECTIVE: 78-year-old male with past medical history of tonsillar cancer status post chemoradiation with development of esophageal stricture subsequent PEG tube placement, pulmonary embolism on anticoagulation, hypothyroidism, COPD on home oxygen and hyperlipidemia was admitted for acute hypoxemic respiratory failure. Patient has a history of noncompliance when at home and usually aspirates. Patient chest X-ray shows elevated right hemidiaphragm, currently on Vapotherm requiring 60% FiO2 to maintain adequate saturation. Patient is usually on 2 L of oxygen at home. Patient also reports a cough along with shortness of breath, no other symptoms. He denies any chest pain, nausea, vomiting, abdominal pain or diarrhea. He does report bilateral lower extremity edema, started recently. 06/30/19 Patient seen in the morning, reports improvement in symptoms from yesterday, not requiring slightly increased amount of FiO2, up to 65% today. Patient reports improvement in dyspnea after starting hypertonic saline times and chest PT yesterday, having copious amounts of productive cough. Patient is otherwise without any complaints, denies any chest pain, nausea, vomiting, abdominal pain or diarrhea. 07/01/19 Patient seen in the morning, reports improvement from yesterday, continues to have copious amounts of secretions with cough, no other complaints. He refused a couple of his breathing treatments overnight because he did not want this to be disturbing his sleep. He denies any chest pain, nausea, vomiting, abdominal pain, diarrhea. 07/02/19 Patient seen in the morning, continues to improve daily, Fio2 down to 45%, good urine output, no other complaints. 07/03/19 Patient continues to improve clinically every day, now down to nasal cannula, denies any dyspnea at rest, continues to have productive cough, encouraged incentive spirometry and staying as long as he can in the recliner. 10 point review of system is negative except for above PHYSICAL EXAMINATION: VITAL SIGNS: Please see below. GENERAL: No distress HEENT: Normocephalic, atraumatic, moist mucous membranes NECK: Supple CARDIOVASCULAR EXAMINATION: S1, S2, no murmurs RESPIRATORY EXAMINATION: Diminished in the right lower lung, scattered rhonchi ABDOMINAL EXAMINATION: Soft, nontender, nondistended, positive bowel sounds EXTREMITIES: Bilateral lower extremity edema improved SKIN: No rash NEUROLOGICAL EXAMINATION: Alert and oriented 3, no focal deficits PSYCHIATRIC EXAMINATION: Calm and cooperative LABORATORY DATA, IMAGING STUDIES, MICROBIOLOGY: Please see below. ASSESSMENT AND PLAN: 68-year-old male with multiple medical comorbidities is admitted for acute hypoxia, respiratory failure secondary to likely aspiration. PROBLEMS: 1. Acute hypoxemic respiratory failure: Secondary to aspiration pneumonia lead ing to right middle and lower lobe collapse, continue hypertonic saline nebs with chest PT, Zosyn, cultures negative, FiO2 titrated down, now on nasal cannula, continue as needed to maintain O2 sats between 88-92%, repeat chest x- ray showing slight improvement in aeration of the right lower lung. 2. Tonsillar cancer: Status post chemoradiation and PEG tube placement, continue tube feeds, nothing by mouth. 3. Hypothyroidism: Continue levothyroxine. 4. Pulmonary embolism: Continue Eliquis DVT prophylaxis: On Eliquis GI prophylaxis: Not needed VS, I&O, 24H, Fishbone Vital Signs/I&O Vital Signs Date Time Temp Pulse Resp B/P (MAP) Pulse Ox O2 Delivery O2 Flow Rate FiO2 07/03/19 18:00 95 Nasal Cannula 2.0 07/03/19 16:00 97.2 77 20 107/55 (72) 07/03/19 11:10 40 I&O- Last 24 Hours up to 6 AM 07/03/19 06:00 Intake Total 100 ml Output Total 2625 ml Balance -2525 ml Laboratory Data 24H LABS Laboratory Tests 2 07/03/19 05:26: Nucleated Red Blood Cells % (auto) 0.0, Anion Gap 1L, Glomerular Filtration Rate > 60.0, Calcium Level 8.4L CBC/BMP Laboratory Tests 07/03/19 05:26 Microbiology Microbiology 06/28/19 Respiratory Virus Panel (PCR) ([facility]) - Final, Complete ADRIANA BERMAN MD Jul 03, 2019 19:05
[2019-07-03] MEDS: ATORVASTATIN 20 MG TAB GT SCH (20:19)
[2019-07-04] VITALS (20 sets, daily range): BP systolic 99–128; BP diastolic 58–75; O2SAT 92–99
[2019-07-04] MEDS: oxyCODONE 5MG TAB PO PRN ×5 (00:35→20:26)
[2019-07-04] MEDS: IPRATROPIUM 0.5MG/ALBUTEROL 2.5MG INH SOL UD 3ML (DUONEB)(J7620) NEB SCH ×5 (03:29→21:04)
[2019-07-04] MEDS: PIPERACILLIN/TAZOBACTAM SOD 3.375 GM in D5W MINI-BAG PLUS 50 ML IV SCH ×2 (03:41→10:03)
[2019-07-04] MEDS: MORPHINE 4 MG/ML 1ML VIAL/SYRINGE (J2270) IV PRN ×5 (03:42→22:12)
[2019-07-04] MEDS: LEVOTHYROXINE 100MCG TABLET (0.1MG) GT SCH (05:31)
[2019-07-04] MEDS: SLF 3 ML SYR IV SCH ×3 (05:32→20:26)
[2019-07-04 05:56] LABS: MEAN CORPUSCULAR HEMOGLOBIN 31.8 pg (27.0-33.0); MEAN CORPUSCULAR HGB CONC 32.4 g/dl (32.0-36.5); MEAN CORPUSCULAR VOLUME 98.3 fl (80.0-96.0); PLATELET COUNT, AUTOMATED 109 10^3/uL (150-450); RED BLOOD COUNT 3.46 10^6/uL (4.30-6.10); WHITE BLOOD COUNT 4.1 10^3/uL (4.0-10.0)
[2019-07-04] MEDS: LevoFLOXacin 750 MG TABLET PO SCH (06:00)
[2019-07-04 06:20] LABS: BLOOD UREA NITROGEN 16 MG/DL (7-18); CALCIUM LEVEL 8.6 MG/DL (8.8-10.2); CARBON DIOXIDE LEVEL 45 MEQ/L (21-32); CHLORIDE LEVEL 94 MEQ/L (98-107); CREATININE FOR GFR 0.75 MG/DL (0.70-1.30); GLOMERULAR FILTRATION RATE > 60.0 (>49); GLUCOSE, FASTING 137 MG/DL (70-100); MAGNESIUM LEVEL 2.5 MG/DL (1.8-2.4); PHOSPHORUS LEVEL 2.9 MG/DL (2.5-4.9); POTASSIUM SERUM 3.4 MEQ/L (3.5-5.1); SODIUM LEVEL 138 MEQ/L (136-145)
[2019-07-04] MEDS: SODIUM CHLORIDE HYPERTONIC 3% 15ML NEB SOL INH SCH ×3 (08:00→15:57)
[2019-07-04] MEDS ORDERED: POTASSIUM CHLORIDE 10 MEQ SR TABLET PO ONE (08:00)
[2019-07-04] MEDS: APIXABAN 5 MG TAB (ELIQUIS) FT SCH ×2 (09:10→20:25)
[2019-07-04] MEDS: ESCITALOPRAM OXALATE 10 MG TAB (LEXAPRO) FT SCH (09:10)
[2019-07-04] MEDS ORDERED: AcetaZOLAMIDE 250 MG TAB PEG ONE (10:00)
--- NOTE | 2019-07-04 16:21 | IPNPDOC ---
Date Seen The patient was seen on 07/04/19. Progress Note SUBJECTIVE: 78-year-old male with past medical history of tonsillar cancer status post chemoradiation with development of esophageal stricture subsequent PEG tube placement, pulmonary embolism on anticoagulation, hypothyroidism, COPD on home oxygen and hyperlipidemia was admitted for acute hypoxemic respiratory failure. Patient has a history of noncompliance when at home and usually aspirates. Patient chest X-ray shows elevated right hemidiaphragm, currently on Vapotherm requiring 60% FiO2 to maintain adequate saturation. Patient is usually on 2 L of oxygen at home. Patient also reports a cough along with shortness of breath, no other symptoms. He denies any chest pain, nausea, vomiting, abdominal pain or diarrhea. He does report bilateral lower extremity edema, started recently. 06/30/19 Patient seen in the morning, reports improvement in symptoms from yesterday, not requiring slightly increased amount of FiO2, up to 65% today. Patient reports improvement in dyspnea after starting hypertonic saline times and chest PT yesterday, having copious amounts of productive cough. Patient is otherwise without any complaints, denies any chest pain, nausea, vomiting, abdominal pain or diarrhea. 07/01/19 Patient seen in the morning, reports improvement from yesterday, continues to have copious amounts of secretions with cough, no other complaints. He refused a couple of his breathing treatments overnight because he did not want this to be disturbing his sleep. He denies any chest pain, nausea, vomiting, abdominal pain, diarrhea. 07/02/19 Patient seen in the morning, continues to improve daily, Fio2 down to 45%, good urine output, no other complaints. 07/03/19 Patient continues to improve clinically every day, now down to nasal cannula, denies any dyspnea at rest, continues to have productive cough, encouraged incentive spirometry and staying as long as he can in the recliner. 07/04/19 Patient's respiratory status is back to baseline, FiO2 requirement is down to baseline of 2 L via nasal cannula, continues to have cough with sputum production has significantly reduced, denies dyspnea at rest, no other complaints. 10 point review of system is negative except for above PHYSICAL EXAMINATION: VITAL SIGNS: Please see below. GENERAL: No distress HEENT: Normocephalic, atraumatic, moist mucous membranes NECK: Supple CARDIOVASCULAR EXAMINATION: S1, S2, no murmurs RESPIRATORY EXAMINATION: Diminished in the right lower lung, scattered rhonchi ABDOMINAL EXAMINATION: Soft, nontender, nondistended, positive bowel sounds EXTREMITIES: Bilateral lower extremity edema improved SKIN: No rash NEUROLOGICAL EXAMINATION: Alert and oriented 3, no focal deficits PSYCHIATRIC EXAMINATION: Calm and cooperative LABORATORY DATA, IMAGING STUDIES, MICROBIOLOGY: Please see below. ASSESSMENT AND PLAN: 68-year-old male with multiple medical comorbidities is admitted for acute hypoxia, respiratory failure secondary to likely aspiration. PROBLEMS: 1. Acute hypoxemic respiratory failure: Secondary to aspiration pneumonia leading to right middle and lower lobe collapse, improved with hypertonic saline nebs and chest PT, FiO2 requirements down to patient's baseline of 2 L via nasal cannula, diarrhea and antibiotics to Levaquin, cultures negative. Patient with significant contraction alkalosis causing CO2 retention, gave 1 dose of Diamox 250 mg. 2. Tonsillar cancer: Status post chemoradiation and PEG tube placement, continue tube feeds, nothing by mouth. 3. Hypothyroidism: Continue levothyroxine. 4. Pulmonary embolism: Continue Eliquis DVT prophylaxis: On Eliquis GI prophylaxis: Not needed VS, I&O, 24H, Fishbone Vital Signs/I&O Vital Signs Date Time Temp Pulse Resp B/P (MAP) Pulse Ox O2 Delivery O2 Flow Rate FiO2 07/04/19 14:00 97.8 74 18 99/59 (72) 94 Nasal Cannula 2.0 07/03/19 11:10 40 I&O- Last 24 Hours up to 6 AM 07/04/19 06:00 Intake Total 0 ml Output Total 950 ml Balance -950 ml Laboratory Data 24H LABS Laboratory Tests 2 07/04/19 05:41: Nucleated Red Blood Cells % (auto) 0.0, Anion Gap , Glomerular Filtration Rate > 60.0, Calcium Level 8.6L, Phosphorus Level 2.9, Magnesium Level 2.5H CBC/BMP Laboratory Tests 07/04/19 05:41 Microbiology Microbiology 06/28/19 Respiratory Virus Panel (PCR) ([facility]) - Final, Complete ADRIANA BERMAN MD Jul 04, 2019 16:21
[2019-07-04] MEDS: ATORVASTATIN 20 MG TAB GT SCH (20:25)
[2019-07-05] VITALS (9 sets, daily range): BP systolic 99–136; BP diastolic 58–82; O2SAT 91–94
[2019-07-05] MEDS: oxyCODONE 5MG TAB PO PRN ×3 (00:50→10:50)
[2019-07-05] MEDS: MORPHINE 4 MG/ML 1ML VIAL/SYRINGE (J2270) IV PRN ×2 (03:21→09:36)
[2019-07-05] MEDS: IPRATROPIUM 0.5MG/ALBUTEROL 2.5MG INH SOL UD 3ML (DUONEB)(J7620) NEB SCH ×5 (04:00→15:00)
[2019-07-05 05:31] LABS: HEMATOCRIT 35.3 % (42.0-52.0); HEMOGLOBIN 11.2 g/dl (13.5-17.5); MEAN CORPUSCULAR HEMOGLOBIN 31.2 pg (27.0-33.0); MEAN CORPUSCULAR HGB CONC 31.7 g/dl (32.0-36.5); MEAN CORPUSCULAR VOLUME 98.3 fl (80.0-96.0); PLATELET COUNT, AUTOMATED 114 10^3/uL (150-450); RED BLOOD COUNT 3.59 10^6/uL (4.30-6.10); WHITE BLOOD COUNT 5.2 10^3/uL (4.0-10.0)
[2019-07-05 05:53] LABS: BLOOD UREA NITROGEN 16 MG/DL (7-18); CALCIUM LEVEL 8.5 MG/DL (8.8-10.2); CARBON DIOXIDE LEVEL 37 MEQ/L (21-32); CHLORIDE LEVEL 99 MEQ/L (98-107); CREATININE FOR GFR 0.75 MG/DL (0.70-1.30); GLOMERULAR FILTRATION RATE > 60.0 (>49); GLUCOSE, FASTING 124 MG/DL (70-100); POTASSIUM SERUM 3.5 MEQ/L (3.5-5.1); SODIUM LEVEL 136 MEQ/L (136-145)
[2019-07-05] MEDS: LEVOTHYROXINE 100MCG TABLET (0.1MG) GT SCH (06:08)
[2019-07-05] MEDS: LevoFLOXacin 750 MG TABLET PO SCH (06:09)
[2019-07-05] MEDS: SLF 3 ML SYR IV SCH ×2 (06:10→14:03)
[2019-07-05] MEDS ORDERED: POTASSIUM CHLORIDE 10% LIQ 20 MEQ/15 ML UDC PEG ONE (09:00)
[2019-07-05] MEDS: APIXABAN 5 MG TAB (ELIQUIS) FT SCH (09:34)
[2019-07-05] MEDS: ESCITALOPRAM OXALATE 10 MG TAB (LEXAPRO) FT SCH (09:36)
[2019-07-05] MEDS ORDERED: LEVA750T7 PO (11:42)
--- NOTE | 2019-07-05 21:06 | DS.PDOC ---
Discharge Summary General Date of Admission Jun 28, 2019 at 03:46 Date of Discharge 07/05/19 Attending Physician: ADRIANA BERMAN MD Discharge Summary PROCEDURES PERFORMED DURING STAY: None ADMITTING DIAGNOSES: 1. Acute on chronic hypoxemic respiratory failure, aspiration pneumonia DISCHARGE DIAGNOSES: 1. Acute on chronic hypoxemic respiratory failure, aspiration pneumonia COMPLICATIONS/CHIEF COMPLAINT: Acute Resp Failure With Hypoxia, Copd. HISTORY OF PRESENT ILLNESS: 68 y.o male w/ PMH of Tonsilar cancer, PE, COPD & CAD was admitted for acute on chronic hypoxemic respiratory failure secondary to aspiration pneumonia. Patient was treated w/ Zosyn, chest PT, hypertonic saline nebs & supplemental oxygen w/ vapotherm. He had significant clinical improvement and returned to his baseline FiO2 requirements of 2L via NC. Patient denies any dyspnea today, cough is at baseline with minimal sputum production (which has improved drastically from presentation). He was evaluated by PT & cleared for discharge home w/ home care. Patient is clinically and hemodynamically stable for discharge at this time with outpatient follow up w/ [employer] & PCP. HOSPITAL COURSE: As above DISCHARGE MEDICATIONS: Please see below. ALLERGIES: Please see below. PHYSICAL EXAMINATION ON DISCHARGE: VITAL SIGNS: Please see below. GENERAL: frail HEENT: moist mucus membranes NECK: supple CARDIOVASCULAR EXAMINATION: irregularly irregular RESPIRATORY EXAMINATION: scattered rhonchi ABDOMINAL EXAMINATION: soft, non-tender, non-distended, PEG in place, +BS EXTREMITIES: ROM intact SKIN: no bryanna NEUROLOGICAL EXAMINATION: no focal deficits PSYCHIATRIC EXAMINATION: calm LABORATORY DATA: Please see below. IMAGING: CT w/ RML & RLL collapse/infiltrate PROGNOSIS: Guarded ACTIVITY: As tolerated DIET: NPO w/ tube feeding DISCHARGE PLAN: f/u with [employer] & PCP in 1-2 weeks DISPOSITION: 06 Home Health Service. DISCHARGE INSTRUCTIONS: 1. As above DISCHARGE CONDITION: Stable TIME SPENT ON DISCHARGE: Greater than 32 minutes. Vital Signs/I&Os Vital Signs Date Time Temp Pulse Resp B/P (MAP) Pulse Ox O2 Delivery O2 Flow Rate FiO2 07/05/19 16:00 98.1 74 19 136/82 (100) 96 Nasal Cannula 3.0 07/05/19 00:50 40 I&O- Last 24 Hours up to 6 AM 07/05/19 05:59 Intake Total 0 ml Output Total 1475 ml Balance -1475 ml Laboratory Data Labs 24H Laboratory Tests 2 07/05/19 04:58: Nucleated Red Blood Cells % (auto) 0.0, Anion Gap 0L, Glomerular Filtration Rate > 60.0, Calcium Level 8.5L CBC/BMP Laboratory Tests 07/05/19 04:58 Microbiology Microbiology 06/28/19 Respiratory Virus Panel (PCR) ([facility]) - Final, Complete Discharge Medications Scheduled Apixaban (Eliquis) 5 Mg Tablet, 5 MG FT BID, (Reported) Atorvastatin Calcium (Atorvastatin Calcium) 40 Mg Tablet, 40 MG FT QHS, (Reported) Escitalopram Oxalate (Escitalopram Oxalate) 10 Mg Tab, 10 MG FT DAILY, (Reported) Levofloxacin (Levaquin) 750 Mg Tablet, 750 MG PO DAILY@06 Levothyroxine Sodium (Levothyroxine Sodium) 100 Mcg Tab, 100 MCG FT DAILY, ( Reported) Oxycodone HCl (Oxycontin) 40 Mg Tab.er.12h, 40 MG FT BID, (Reported) Scheduled PRN Albuterol Sulf (Albuterol Sulfate) 2.5 Mg/3 Ml Vial.neb, 2.5 MG INH TID PRN for SOB/WHEEZING, (Reported) Oxycodone HCl (Oxycodone HCl) 10 Mg Tablet, 10 MG FT QID PRN for SEVERE PAIN (PS 8-10), (Reported) Allergies Coded Allergies: latex (Verified Allergy, Intermediate, hives, 02/23/19) ADRIANA BERMAN MD Jul 05, 2019 21:06
== END 2019-07-05 16:43 | disposition home health service (06) | DRG 189 ==
LOC: EDBD 23:26 → M ED 23:26 → M ED INP 06-28 03:46 → ENRESERVTM 06-28 04:14 → ENRESERVDT 06-28 04:14 → M PCU 06-28 05:13
PROVIDERS: ADMIT Internal Medicine; ATTEND Internal Medicine
DX: J96.21 Acute and chronic respiratory failure with hypoxia (principal); J69.0 Pneumonitis due to inhalation of food and vomit; I26.99 Other pulmonary embolism without acute cor pulmonale; E46 Unspecified protein-calorie malnutrition; Z85.89 Personal history of malignant neoplasm of other organs and systems; J44.9 Chronic obstructive pulmonary disease, unspecified; I25.10 Atherosclerotic heart disease of native coronary artery without angina pectoris; Z86.711 Personal history of pulmonary embolism; Z79.899 Other long term (current) drug therapy; Z91.040 Latex allergy status; Z93.1 Gastrostomy status; Z92.3 Personal history of irradiation; Z99.81 Dependence on supplemental oxygen; E03.9 Hypothyroidism, unspecified; F41.9 Anxiety disorder, unspecified; E78.5 Hyperlipidemia, unspecified; I25.2 Old myocardial infarction; Z87.891 Personal history of nicotine dependence; K22.2 Esophageal obstruction; Z79.01 Long term (current) use of anticoagulants

== ENCOUNTER 2019-07-25 11:59 | Emergency (ER) | payer MEDICARE, MEDICAID ==
[~2019-07-25] VITALS: Ht 167.6 cm; Wt 78.6 kg
[~2019-07-25 11:59] MED LIST changes: +LEVA750T7 PO; +OXYC10TA12 FT; +OXYC40TA29 FT
[2019-07-25] MEDS ORDERED: MORP1TAB21 OR (12:29)
[2019-07-25] MEDS ORDERED: NS 1,000 ML IV SCH (12:37)
[2019-07-25] MEDS ORDERED: COMBIVENT RESPIMAT 100-20MCG INHALER 4GM INH PRN (12:45)
[2019-07-25 13:13] LABS: ABG BASE EXCESS 10.4 (-2.0-2.0); ABG HCO3 38.4 MEQ/L (22.0-26.0); ABG O2 SATURATION 97.3 % (95.0-99.0); ABG PARTIAL PRESSURE O2 95.6 mmHg (75.0-100.0); ABG STANDARD HCO3 34.2 MEQ/L (22.0-26.0); ABG TOTAL CO2 40.5 MEQ/L (23.0-31.0); ABG pH (ARTERIAL) 7.368 UNITS (7.350-7.450)
[2019-07-25 13:14] LABS: ABG PARTIAL PRESSURE CO2 68.2 mmHg (35.0-45.0)
[2019-07-25 13:25] LABS: BASO % 0.7 % (0.0-1.0); EOS # 0.3 10^3/uL (0.0-0.5); EOS % 6.9 % (0.0-3.0); HEMATOCRIT 39.9 % (42.0-52.0); HEMOGLOBIN 12.8 g/dl (13.5-17.5); LYMPH # 0.6 10^3/uL (1.5-5.0); LYMPH % 12.6 % (24.0-44.0); MEAN CORPUSCULAR HEMOGLOBIN 31.9 pg (27.0-33.0); MEAN CORPUSCULAR HGB CONC 32.1 g/dl (32.0-36.5); MEAN CORPUSCULAR VOLUME 99.5 fl (80.0-96.0); MONO # 0.7 10^3/uL (0.0-0.8); MONO % 16.5 % (0.0-5.0); NEUTROPHILS # 2.8 10^3/uL (1.5-8.5); NEUTROPHILS % 63.1 % (36.0-66.0); PLATELET COUNT, AUTOMATED 119 10^3/uL (150-450); RED BLOOD COUNT 4.01 10^6/uL (4.30-6.10); WHITE BLOOD COUNT 4.4 10^3/uL (4.0-10.0)
--- NOTE | 2019-07-25 13:51 | REP ---
CHEST, SINGLE VIEW: Single view of the chest is performed and compared to the prior study of 07/03/2019. Previously noted right pleural effusion appears to have improved. There is mild linear fibroatelectatic change seen in the right lung base with elevation of the right hemidiaphragm. Patchy left basilar parenchymal opacities appear unchanged. Cardiomediastinal silhouette is grossly unchanged. There are degenerative changes of the spine. Electronically Signed by Sunny Whitlock MD 07/25/2019 06:08 P
[2019-07-25 13:58] LABS: ALT/SGPT 46 U/L (12-78); BILIRUBIN,DIRECT 0.1 MG/DL (0.0-0.2); BILIRUBIN,TOTAL 0.4 MG/DL (0.2-1.0); BLOOD UREA NITROGEN 14 MG/DL (7-18); CALCIUM LEVEL 8.7 MG/DL (8.8-10.2); CARBON DIOXIDE LEVEL 40 MEQ/L (21-32); CHLORIDE LEVEL 96 MEQ/L (98-107); CREATININE FOR GFR 0.65 MG/DL (0.70-1.30); GLOMERULAR FILTRATION RATE > 60.0 (>49); GLUCOSE, FASTING 119 MG/DL (70-100); POTASSIUM SERUM 4.6 MEQ/L (3.5-5.1); SODIUM LEVEL 136 MEQ/L (136-145); TOTAL PROTEIN 6.4 GM/DL (6.4-8.2)
[2019-07-25 16:02] VITALS: BP 139/87
--- NOTE | 2019-07-25 17:27 | ECGEPIP ---
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
== END 2019-07-25 16:26 | disposition home or self-care (01) ==
LOC: M ED 11:59
DX: J44.9 Chronic obstructive pulmonary disease, unspecified (principal); I10 Essential (primary) hypertension; I25.10 Atherosclerotic heart disease of native coronary artery without angina pectoris; Z99.81 Dependence on supplemental oxygen; Z79.899 Other long term (current) drug therapy; Z79.890 Hormone replacement therapy; Z79.01 Long term (current) use of anticoagulants; Z91.040 Latex allergy status

== ENCOUNTER 2019-09-29 09:12 | Emergency (ER) | payer MEDICARE, MEDICAID ==
[~2019-09-29] VITALS: Ht 170.2 cm; Wt 79.5 kg
[~2019-09-29 09:12] MED LIST changes: +MORP1TAB21 OR; +OXYC-1 FT; -OXYC15TA76 FT
[2019-09-29] MEDS ORDERED: methylPREDNISolone INJ 125 MG/2 ML VIAL (J2930) IV ONE (09:45)
[2019-09-29 09:59] LABS: BASO % 0.4 % (0.0-1.0); EOS # 0.1 10^3/uL (0.0-0.5); EOS % 1.2 % (0.0-3.0); HEMATOCRIT 42.9 % (42.0-52.0); LYMPH # 0.6 10^3/uL (1.5-5.0); LYMPH % 8.1 % (24.0-44.0); MEAN CORPUSCULAR HEMOGLOBIN 32.7 pg (27.0-33.0); MEAN CORPUSCULAR HGB CONC 32.6 g/dl (32.0-36.5); MEAN CORPUSCULAR VOLUME 100.2 fl (80.0-96.0); MONO # 0.8 10^3/uL (0.0-0.8); MONO % 10.7 % (0.0-5.0); NEUTROPHILS % 79.3 % (36.0-66.0); PLATELET COUNT, AUTOMATED 122 10^3/uL (150-450); RED BLOOD COUNT 4.28 10^6/uL (4.30-6.10); WHITE BLOOD COUNT 7.5 10^3/uL (4.0-10.0)
[2019-09-29] MEDS: IPRATROPIUM 0.5MG/ALBUTEROL 2.5MG INH SOL UD 3ML (DUONEB) NEB SCH ×3 (10:00→10:42)
--- NOTE | 2019-09-29 10:44 | REP ---
PORTABLE CHEST: AP portable view of the chest is performed and compared to a prior study of 06/26/2019 There is again elevation of the right hemidiaphragm. There appears to be a small amount of right pleural fluid or thickening with adjacent right base parenchymal opacity, unchanged. Left basilar parenchymal opacities have mildly improved since the prior study. The heart is not significantly enlarged and there is calcification of the thoracic aorta. Mediastinal silhouette has not changed. Electronically Signed by Sunny Whitlock MD 09/29/2019 02:53 P
[2019-09-29 10:58] LABS: BLOOD UREA NITROGEN 15 MG/DL (7-18); CALCIUM LEVEL 8.3 MG/DL (8.8-10.2); CARBON DIOXIDE LEVEL 42 MEQ/L (21-32); CHLORIDE LEVEL 96 MEQ/L (98-107); CK-MB VALUE MASS 1.1 NG/ML (<3.6); CPK CREATINE PHOSPHOKINASE 89 U/L (39-308); CREATININE FOR GFR 0.74 MG/DL (0.70-1.30); GLOMERULAR FILTRATION RATE > 60.0 (>49); GLUCOSE, FASTING 139 MG/DL (70-100); MB/CK RELATIVE INDEX 1.24 (< OR =4); POTASSIUM SERUM 4.5 MEQ/L (3.5-5.1); SODIUM LEVEL 138 MEQ/L (136-145); TROPONIN I < 0.02 NG/ML (< 0.10)
[2019-09-29] MEDS ORDERED: PRED10TA2 PO (11:22)
[2019-09-29 11:30] VITALS: BP 126/76
--- NOTE | 2019-09-29 21:26 | ECGEPIP ---
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
== END 2019-09-29 11:47 | disposition home or self-care (01) ==
LOC: M ED 09:12
DX: J44.1 Chronic obstructive pulmonary disease with (acute) exacerbation (principal); J96.11 Chronic respiratory failure with hypoxia; J96.12 Chronic respiratory failure with hypercapnia; E07.9 Disorder of thyroid, unspecified; I10 Essential (primary) hypertension; M54.9 Dorsalgia, unspecified; Z85.810 Personal history of malignant neoplasm of tongue; Z85.818 Personal history of malignant neoplasm of other sites of lip, oral cavity, and pharynx; Z86.711 Personal history of pulmonary embolism; Z87.891 Personal history of nicotine dependence; Z92.21 Personal history of antineoplastic chemotherapy; Z92.3 Personal history of irradiation; Z91.040 Latex allergy status; Z93.1 Gastrostomy status; Z79.899 Other long term (current) drug therapy; Z79.01 Long term (current) use of anticoagulants; Z79.891 Long term (current) use of opiate analgesic; Z99.81 Dependence on supplemental oxygen
CPT/HCPCS: 36415; 36600; 71045; 80048; 82550; 82553; 82803; 83605; 84443; 84484; 85025; 87040; 87486; 87581; 87633; 87798; 93005; 93041; 94640; 96374; 99285; J2930

== ENCOUNTER 2019-11-14 18:17 | Inpatient (IN) | payer MEDICARE, MEDICAID ==
[~2019-11-14] VITALS: Ht 170.2 cm; Wt 81.9 kg
[~2019-11-14 18:17] MED LIST changes: +PRED10TA2 PO
[2019-11-14] MEDS ORDERED: COMBIVENT RESPIMAT 100-20MCG INHALER 4GM INH ONE (18:30)
[2019-11-14] MEDS ORDERED: methylPREDNISolone INJ 125 MG/2 ML VIAL (J2930) IV ONE (18:30)
[2019-11-14] MEDS ORDERED: ACETAMINOPHEN TAB 650MG DOSE (2X325MG) PO ONE (18:30)
[2019-11-14 18:58] LABS: ABG BASE EXCESS 7.2 (-2.0-2.0); ABG HCO3 33.2 MEQ/L (22.0-26.0); ABG O2 SATURATION 91.8 % (95.0-99.0); ABG PARTIAL PRESSURE CO2 52.3 mmHg (35.0-45.0); ABG PARTIAL PRESSURE O2 61.1 mmHg (75.0-100.0); ABG STANDARD HCO3 30.9 MEQ/L (22.0-26.0); ABG TOTAL CO2 34.8 MEQ/L (23.0-31.0)
[2019-11-14 18:58] LABS: BASO % 0.2 % (0.0-1.0); HEMATOCRIT 39.5 % (42.0-52.0); HEMOGLOBIN 12.7 g/dl (13.5-17.5); LYMPH # 0.3 10^3/uL (1.5-5.0); LYMPH % 2.3 % (24.0-44.0); MEAN CORPUSCULAR HEMOGLOBIN 32.3 pg (27.0-33.0); MEAN CORPUSCULAR HGB CONC 32.2 g/dl (32.0-36.5); MEAN CORPUSCULAR VOLUME 100.5 fl (80.0-96.0); MONO # 1.6 10^3/uL (0.0-0.8); MONO % 10.7 % (0.0-5.0); NEUTROPHILS % 86.5 % (36.0-66.0); PLATELET COUNT, AUTOMATED 125 10^3/uL (150-450); RED BLOOD COUNT 3.93 10^6/uL (4.30-6.10)
[2019-11-14 19:29] LABS: ALBUMIN 2.7 GM/DL (3.2-5.2); ALT/SGPT 49 U/L (12-78); BILIRUBIN,DIRECT 0.2 MG/DL (0.0-0.2); BILIRUBIN,TOTAL 0.4 MG/DL (0.2-1.0); BLOOD UREA NITROGEN 21 MG/DL (7-18); CALCIUM LEVEL 8.6 MG/DL (8.8-10.2); CARBON DIOXIDE LEVEL 33 MEQ/L (21-32); CHLORIDE LEVEL 100 MEQ/L (98-107); CK-MB VALUE MASS 1.3 NG/ML (<3.6); CPK CREATINE PHOSPHOKINASE 261 U/L (39-308); CREATININE FOR GFR 1.12 MG/DL (0.70-1.30); GLOMERULAR FILTRATION RATE > 60.0 (>49); GLUCOSE, FASTING 154 MG/DL (70-100); NT-PRO BNP 476 PG/ML (<125); POTASSIUM SERUM 4.5 MEQ/L (3.5-5.1); SODIUM LEVEL 136 MEQ/L (136-145); THYROID STIMULATING HORMONE 0.972 uIU/ML (0.358-3.740); TOTAL PROTEIN 6.2 GM/DL (6.4-8.2); TROPONIN I 0.61 NG/ML (< 0.10)
[2019-11-14] MEDS ORDERED: ISOVUE-370 76% 100ML VIAL As Ordered ONE (20:00)
--- NOTE | 2019-11-14 20:42 | REPVR ---
PROCEDURE INFORMATION: Exam: CT Angiography Chest With Contrast Exam date and time: 11/14/2019 8:09 PM Age: 68 years old Clinical indication: Shortness of breath; Additional info: SOB TECHNIQUE: Imaging protocol: Computed tomographic angiography of the chest with intravenous contrast. 3D rendering: MIP and/or 3D reconstructed images were created by the technologist. Radiation optimization: All CT scans at this facility use at least one of these dose optimization techniques: automated exposure control; mA and/or kV adjustment per patient size (includes targeted exams where dose is matched to clinical indication); or iterative reconstruction. Contrast material: ISOVUE 370; Contrast volume: 75 ml; Contrast route: INTRAVENOUS (IV); COMPARISON: CT ANGIO CHEST 06/29/2019 1:37 PM FINDINGS: Pulmonary arteries: There are no pulmonary emboli. Aorta: The aorta demonstrates mild atherosclerotic calcification. There is no aortic dissection. 3.6 cm fusiform ascending thoracic aortic aneurysm. Lungs: Mild centrilobular emphysema in the upper lung zones. Infiltrate in the right lower lobe may represent atelectasis although infectious etiology should be excluded clinically. Parenchymal opacity left lower lobe likely atelectatic. Again, infection to be excluded clinically. Pleural space: Unremarkable. No pneumothorax. No pleural effusion. Elevated right hemidiaphragm secondary to a large diaphragmatic eventration. Heart: Unremarkable. No cardiomegaly. No pericardial effusion. Mild coronary artery calcifications. Lymph nodes: Multiple mediastinal lymph nodes measure up to 9 mm in the AP window. These are likely postinflammatory. Bones/joints: The spine demonstrates mild degenerative changes. Soft tissues: Unremarkable. IMPRESSION: 1. Mild centrilobular emphysema in the upper lung zones. 2. Infiltrate in the right lower lobe may represent atelectasis especially considering the presence of a large right hemidiaphragmatic eventration, although an infectious etiology should be excluded clinically. Parenchymal opacity left lower lobe likely atelectatic. Again, infection to be excluded clinically. 3. There is no aortic dissection. 3.6 cm fusiform ascending thoracic aortic aneurysm. 4. There are no pulmonary emboli. Electronically signed by: David Cannon On 11/14/2019 20:42:23 PM
[2019-11-14] MEDS ORDERED: IPRATROPIUM 0.5MG/ALBUTEROL 2.5MG INH SOL UD 3ML (DUONEB) NEB ONE ×2 (21:15→22:45)
[2019-11-14] MEDS ORDERED: oxyCODONE 10 MG CR TAB PO ONE (21:15)
[2019-11-14] MEDS ORDERED: OXYC-1 PO (21:48)
[2019-11-14] MEDS ORDERED: oxyCODONE 5MG TAB PO ONE (22:00)
[2019-11-14 22:16] LABS: CK-MB VALUE MASS 1.5 NG/ML (<3.6); MB/CK RELATIVE INDEX 0.51 (< OR =4); TROPONIN I 0.55 NG/ML (< 0.10)
[2019-11-14] MEDS ORDERED: ACETAMINOPHEN TAB 650MG DOSE (2X325MG) PO PRN (22:45)
[2019-11-14] MEDS ORDERED: ASPIRIN 81 MG CHEW TABLET PO ONE (22:45)
[2019-11-14] MEDS ORDERED: DOXYCYCLINE HYCLATE 100 MG in D5W MINI-BAG PLUS 100 ML IV ONE (22:45)
[2019-11-14] MEDS ORDERED: ALBUTEROL SULFATE 2.5 MG/0.5 ML INH NEB SOLN NEB PRN (22:45)
[2019-11-14] MEDS ORDERED: MAALOX 30 ML SUSP *UDC PO PRN (22:45)
[2019-11-14] MEDS ORDERED: cefTRIAXone SOD 1 GM in D5W MINI-BAG PLUS 50 ML IV ONE (22:45)
[2019-11-14 22:53] VITALS: BP 128/72
[2019-11-14] MEDS ORDERED: OXYC-1 FT (23:14)
--- NOTE | 2019-11-14 23:21 | HPEPDOC ---
[facility] Medical History & Physical Date of Admission Nov 14, 2019 Date of Service: Nov 14, 2019 Primary Care Physician: Eliseo Leonard Attending Physician: ALFIE SWARTZ MD History and Physical TIME OF SERVICE: 11:35 PM CHIEF COMPLAINT: Shortness of breath HISTORY OF PRESENT ILLNESS: This is a 68 year old gentleman who was last admitted in June of this year for management of acute on chronic hypoxemic respiratory failure secondary to aspiration pneumonia. Today he presented with complaints of shortness of breath for one day associated with runny nose and a cough productive of white to green sputum. Today he developed a fever. Therefore he decided to come to the hospital for evaluation. He denied having fevers, chills, nausea, vomiting, diarrhea, chest pain, feeling dizzy, having sick contacts or traveling. 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 Hx of Chronic anemia History of Lyme's disease OA Status post hiatal hernia repair Right hand surgery G-tube placement Hiatial hernia repair SOCIAL HISTORY: Former smoker He does drink alcohol He doesn't use drugs FAMILY HISTORY: Throat cancer Cervical cancer Lung cancer Breast cancer ALLERGIES: Please see below. HOME MEDICATIONS: Please see below. PHYSICAL EXAMINATION: Vital Signs Date Time Temp Pulse Resp B/P (MAP) Pulse Ox O2 Delivery O2 Flow Rate FiO2 11/14/19 18:26 115/56 (75) 11/14/19 18:27 101.3 109 20 87 Nasal Cannula 2.0 GEN: well nourished / well developed/ NAD INTEGUMENT: He does not facial plethora HEENT:NCAT / doesn't have pursed lip breathing/NC in place /nose is running CVS: RRR/ distant heart sounds / radial pulses intact LUNGS:He doesn't have nasal flairing / not able to speak full sentences without stopping to take a breath / coughing / not using accessory muscles / there is decreased respiratory expansion breath sounds are diminished ABDOMEN: he has a G-tube in place. The skin surrounding the tube is slightly erythematous and surrounded with green-yellow liquid discharge NEURO: no asterixis asterixis PSYCH: alert and oriented / able to understand and follow all commands LABORATORY DATA: Laboratory Tests 11/14/19 18:43 11/15/19 02:52 11/14/19 18:43: Immature Granulocyte % (Auto) 0.3, Neutrophils (%) (Auto) 86.5H, Lymphocytes (%) (Auto) 2.3L, Monocytes (%) (Auto) 10.7H, Eosinophils (%) (Auto) 0.0, Basophils (%) (Auto) 0.2, Neutrophils # (Auto) 13.0H, Lymphocytes # (Auto) 0.3L, Monocytes # (Auto) 1.6H, Eosinophils # (Auto) 0.0, Basophils # (Auto) 0.0, Nucleated Red Blood Cells % (auto) 0.0, Anion Gap 3L, Glomerular Filtration Rate > 60.0, Lactic Acid Level 3.0*H, Calcium Level 8.6L, Total Bilirubin 0.4, Direct Bilirubin 0.2, Aspartate Amino Transf (AST/SGOT) 32, Alanine Aminotransferase (ALT/SGPT) 49, Alkaline Phosphatase 96, Total Creatine Kinase 261, Creatine Kinase MB 1.3, Creatine Kinase MB Relative Index 0.50, Troponin I 0.61H, SM-Jmp-D-Type Natriuretic Peptide 476H, Total Protein 6.2L, Albumin 2.7L, Albumin/Globulin Ratio 0.8, Thyroid Stimulating Hormone (TSH) 0.972 11/14/19 18:44: Blood Gas Bicarbonate Standard 30.9H, Arterial Blood pH 7.420, Arterial Blood Partial Pressure CO2 52.3H, Arterial Blood Partial Pressure O2 61.1L, Arterial Blood Total CO2 34.8H, Arterial Blood HCO3 33.2H, Arterial Blood Base Excess 7.2H, Arterial Blood Oxygen Saturation 91.8L 11/14/19 21:30: Total Creatine Kinase 297, Creatine Kinase MB 1.5, Creatine Kinase MB Relative Index 0.51, Troponin I 0.55H 11/14/19 23:06: IMAGING: CTA chest "IMPRESSION: 1. Mild centrilobular emphysema in the upper lung zones. 2. Infiltrate in the right lower lobe may represent atelectasis especially considering the presence of a large right hemidiaphragmatic eventration, alth ough an infectious etiology should be excluded clinically. Parenchymal opacity left lower lobe likely atelectatic. Again, infection to be excluded clinically. 3. There is no aortic dissection. 3.6 cm fusiform ascending thoracic aortic aneurysm. 4. There are no pulmonary emboli. " MICROBIOLOGY: 11/14/19 Blood Culture, Received Pending 11/14/19 Respiratory Virus Panel (PCR) ([facility]) - Final, Complete 11/14/19 Blood Culture, Received Pending ASSESSMENT: Mr. Araiza is a 68-year-old with a history of squamous cell tonsillar carcinoma, esophageal stricture with PEG tube placement, COPD with chronic O2 dependent respiratory failure, history of PE, with a reason, anxiety, CAD, dyslipidemia, and OA who was admitted for management of sepsis secondary to pneumonia. PLAN: 1.Sepsis 2/2 PNA SIRs criteria include: Temp >101 / HR >90 / WBC >12 / RR >20 lactic acid >3 Plan: admit to PCU / telemetry / Sepsis protocol w repeat lactic acid /ceftriaxone, doxycycline, vancomycin pending blood cultures, sputum cultures, strep pneumo, Legionella and MRSA results / IVF / Acetaminophen PRN for fever / target MAP at least 65 to 70 mmHG / f/u Is and Os with target UOP of at least 0 .5 ml/kg/H / target serum glucose 140-180 while acutely ill 2. Acute COPD 2/2 PNA Plan: supplemental O2 / continuous pulse oximetry / aspiration precautions / / Dunebs Q6H, Albuterol Q4HP, Prednisone + PPI 3. Type II and STEMI /demand ischemia 2/2 tachycardia He denies CP Plan: Telemetry/continue to trend troponins 4. Lactic acidosis 2/2 infection Plan: IVF / abx / trend lactic acid 5. Esophageal stricture / Dysphagia with PEG tube placement Plan: systems analyst developer consult for tube feeds 6. Hypothyroidism Plan: Levothyroxine 7. CAD /Dyslipidemia Plan: Atorvastatin 7. Chronic Macrocytic Anemia likely 2/2 COPD Plan: f/u CBC 8. OA Plan: oxycodone DVT PROPHYLAXIS: n/a on xarelto DISPOSITION: Home after more than 2 midnight's stay Home Medications Scheduled Apixaban (Eliquis) 5 Mg Tablet, 5 MG FT BID Atorvastatin Calcium (Atorvastatin Calcium) 40 Mg Tablet, 40 MG FT QHS Levothyroxine Sodium (Levothyroxine Sodium) 100 Mcg Tab, 100 MCG FT DAILY Scheduled PRN Albuterol Sulf (Albuterol Sulfate) 2.5 Mg/3 Ml Vial.neb, 2.5 MG INH Q4H PRN for SOB/WHEEZING Oxycodone Hcl (Oxycodone HCl) 15 Mg Tablet, 30 MG FT Q6H PRN for PAIN Allergies Coded Allergies: latex (Verified Allergy, Intermediate, hives, 02/23/19) A-FIB/CHADSVASC A-FIB History Current/History of A-Fib/PAF?: No Current PO Anticoag Therapy: No ALFIE SWARTZ MD Nov 14, 2019 23:21
[2019-11-15] VITALS (14 sets, daily range): BP systolic 108–140; BP diastolic 62–82; O2SAT 92–99
[2019-11-15] MEDS ORDERED: VANCOMYCIN HCL 750 MG, VIAL MATE ADAPTER 1 EACH in D5W 250 ML IV ONE ×2 (01:00→02:00)
[2019-11-15] MEDS: IPRATROPIUM 0.5MG/ALBUTEROL 2.5MG INH SOL UD 3ML (DUONEB) NEB SCH ×4 (02:00→20:01)
[2019-11-15] MEDS: ATORVASTATIN 20 MG TAB GT SCH ×2 (02:01→21:29)
[2019-11-15] MEDS: APIXABAN 5 MG TAB (ELIQUIS) FT SCH ×3 (02:01→21:29)
[2019-11-15 03:00] LABS: HEMATOCRIT 41.8 % (42.0-52.0); HEMOGLOBIN 13.2 g/dl (13.5-17.5); MEAN CORPUSCULAR HEMOGLOBIN 31.7 pg (27.0-33.0); MEAN CORPUSCULAR HGB CONC 31.6 g/dl (32.0-36.5); MEAN CORPUSCULAR VOLUME 100.5 fl (80.0-96.0); PLATELET COUNT, AUTOMATED 116 10^3/uL (150-450); RED BLOOD COUNT 4.16 10^6/uL (4.30-6.10)
[2019-11-15 03:35] LABS: CALCIUM LEVEL 8.3 MG/DL (8.8-10.2); CREATININE FOR GFR 1.3 MG/DL (0.70-1.30); GLOMERULAR FILTRATION RATE 58.6 (>49); MAGNESIUM LEVEL 2.2 MG/DL (1.8-2.4); POTASSIUM SERUM 4.6 MEQ/L (3.5-5.1); TROPONIN I 0.28 NG/ML (< 0.10)
[2019-11-15] MEDS ORDERED: NS 1,000 ML IV SCH (04:45)
[2019-11-15] MEDS: LEVOTHYROXINE 100MCG TABLET (0.1MG) GT SCH (05:06)
[2019-11-15] MEDS: oxyCODONE 5MG TAB GT PRN ×4 (05:07→23:37)
--- NOTE | 2019-11-15 06:28 | PHACANCOPD ---
PHARMACY VANCOMYCIN DOSING Pt Demographics Demographics Patient Age:68 , Weight:81.820 , Gender: male Adjusted Body Weight Date: 11/15/19, Adjusted Body Weight: [72.4] Kg Vancomycin Vancomycin indication: PNEUMONIA Vancomycin Target Ranges: 15-20 mcg/ml Vancomycin Load Y/N: Yes Load Dose Date Time Vancomycin Load Dose: 1.5GM Date: 11/14 Time: 02:30-03:30 Vancomycin Dose Date: 11/15/19. Current Vancomycin Dose: [1 GM IV Q12H] Intermittent Dosing?: No Labs Micro Microbiology 11/14/19 Blood Culture, Received Pending 11/14/19 Respiratory Virus Panel (PCR) ([facility]) - Final, Complete 11/14/19 Blood Culture, Received Pending Creatinine Clearance Date:11/15/19. Creatinine Clearance: [65.5].CALCULATED Assessment and Plan Maintaining Current Dose?: Yes Reason for dose change: No Dose Change Pharmacist Note Pharmacist Note Date: 11/15/19. Pharmacist note:68 YOM ADMITTED W POSSIBLE PNEUMONIA/RESP INFECTION.HT:68",wt:81.8KG(ABW=72.4KG) cALCULATED CrCl= 65.5,ALLERGY:LATEX,.MRSA PCR PENDING.ABX Regimen includes Ceftriaxone 1 gm IV Q24H, Doxycycline 100mg IV Q12H and Pharmacy dosed Vancomycin. Vanco 1.5gm load administered this am @2:30/3:30, then will begin 1 gram iv [id number] @12noon. First trough is scheduled for 11/15@11:00( prior to the 4th dose)- WILL CONTINUE TO [facility] Nov 15, 2019 06:28
--- NOTE | 2019-11-15 08:15 | ECGEPIP ---
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
--- NOTE | 2019-11-15 08:26 | ECGEPIP ---
[facility] - ED Test Date: 2019-11-14 Pat Name: JERZY GAVIN Department: Room: - Gender: Male Pharmacist: DAMIEN : 1950 Requested By: CINDY Chisholm Order Number: [id number] Reading MD: Michael Watkins Measurements Intervals [place] Rate: 86 P: 34 CT: 156 QRS: -4 QRSD: 77 T: 22 QT: 352 QTc: 423 Interpretive Statements SINUS RHYTHM POOR R WAVE PROGRESSION SIMILAR TO 11/14/19 Electronically Signed on 11-15-2019 8:25:53 EDT by Michael Watkins
[2019-11-15] MEDS ORDERED: PANTOPRAZOLE 40MG TAB (PROTONIX) PO SCH (09:00)
[2019-11-15] MEDS ORDERED: predniSONE 20 MG TAB PO SCH (09:00)
[2019-11-15] MEDS ORDERED: ENOXAPARIN 40MG/0.4ML SYRINGE (J1650 PER 10MG) SC SCH (09:00)
[2019-11-15] MEDS: DOXYCYCLINE HYCLATE 100 MG in D5W MINI-BAG PLUS 100 ML IV SCH ×2 (09:46→21:29)
[2019-11-15] MEDS: predniSONE 20 MG TAB GT SCH (09:46)
[2019-11-15] MEDS: LANSOPRAZOLE SUSPENSION 30 MG/10 ML ORAL SYRINGE (FIRST-LANSOPRAZOLE) GT SCH (09:46)
--- NOTE | 2019-11-15 10:53 | REP ---
REASON FOR EXAM: Cough and dyspnea. COMPARISON: Multiple, the latest 09/29/2019. The technique utilized in obtaining the radiograph has magnified the cardiac silhouette and accentuated the interstitial markings. There is persistent chronic elevation of the diaphragmatic surface of the right lung status quo. Cardiomediastinal silhouette is unchanged. There is left basilar fibrotic change status quo. No acute patchy parenchymal opacities or pleural effusion seem to have developed on this limited portable exam. There is no change in the osseous structures. IMPRESSION: Stable appearing chronic changes as described above. Electronically Signed by Vincent Murray DO 11/15/2019 05:22 P
[2019-11-15] MEDS: cefTRIAXone SOD 1 GM in D5W MINI-BAG PLUS 50 ML IV SCH (11:15)
[2019-11-15] MEDS ORDERED: VANCOMYCIN HCL 1,000 MG, VIAL MATE ADAPTER 1 EACH in D5W 250 ML IV SCH (12:00)
--- NOTE | 2019-11-15 15:37 | IPNPDOC ---
Text Note Date of Service The patient was seen on 11/15/19. NOTE SUBJECTIVE: Feels better this morning. No fever, denies any SOB. PHYSICAL EXAM: VITALS: As below GEN: well nourished / well developed/ NAD INTEGUMENT: He does not facial plethora HEENT:NCAT, moist mucous membranes, anicteric eyes. CVS: RRR/ distant heart sounds, no murmur or gallop LUNGS: No ronchi or whezing or crackles. Breath sounds are diminished ABDOMEN: he has a G-tube in place. The skin surrounding the tube is slightly erythematous and surrounded with green-yellow liquid discharge NEURO: no asterixis asterixis PSYCH: alert and oriented x 3 Labs: reviewed. IMAGING: CTA chest "IMPRESSION: 1. Mild centrilobular emphysema in the upper lung zones. 2. Infiltrate in the right lower lobe may represent atelectasis especially considering the presence of a large right hemidiaphragmatic eventration, although an infectious etiology should be excluded clinically. Parenchymal opacity left lower lobe likely atelectatic. Again, infection to be excluded clinically. 3. There is no aortic dissection. 3.6 cm fusiform ascending thoracic aortic aneurysm. 4. There are no pulmonary emboli. " MICROBIOLOGY: 11/14/19 Blood Culture, Received Pending 11/14/19 Respiratory Virus Panel (PCR) ([facility]) - Final, Complete 11/14/19 Blood Culture, Received Pending ASSESSMENT and PLAN: Mr. Araiza is a 68-year-old with a history of squamous cell tonsillar carcinoma, esophageal stricture with PEG tube placement, COPD with chronic O2 dependent respiratory failure, history of PE, with a reason, anxiety, CAD, dyslipidemia, and OA who was admitted for management of sepsis secondary to pneumonia. Community acquired pneumonia ceftriaxone and doxycycline Sepsis 2/2 PNA ceftriaxone and doxycycline Acute exacerbation of COPD 2/2 PNA Duonebs, Albuterol, Prednisone + PPI Chronic respiratory failure with hypoxia. 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 Hypothyroidism Levothyroxine CAD /Dyslipidemia Atorvastatin Chronic Macrocytic Anemia stable OA oxycodone History of PE xarelto. Chronic left lower lobe infiltrate (radiation fibrosis?) GERD Hiatal hernia repair Lansoprazole DVT PROPHYLAXIS: on xarelto VS,Fishbone, I+O VS, Fishbone, I+O Laboratory Tests 11/14/19 18:43 11/15/19 02:52 Vital Signs Date Time Temp Pulse Resp B/P (MAP) Pulse Ox O2 Delivery O2 Flow Rate FiO2 11/15/19 14:00 93 Nasal Cannula 4.0 11/15/19 12:00 97.7 113 18 137/68 (91) I&O- Last 24 Hours up to 6 AM 11/15/19 06:00 Intake Total 840 ml Output Total 0 ml Balance 840 ml KARUNA DAILEY MD Nov 15, 2019 15:37
[2019-11-16] VITALS (15 sets, daily range): BP systolic 118–135; BP diastolic 58–74; O2SAT 93–97
[2019-11-16] MEDS: IPRATROPIUM 0.5MG/ALBUTEROL 2.5MG INH SOL UD 3ML (DUONEB) NEB SCH ×4 (00:55→20:32)
[2019-11-16 04:51] LABS: VENOUS BASE EXCESS -3.2 (-2.0-2.0); VENOUS HCO3 25.8 MEQ/L (23.0-27.0); VENOUS O2 SATURATION 96.7 % (60.0-80.0); VENOUS PARTIAL PRESSURE CO2 64.6 mmHg (38.0-50.0); VENOUS PARTIAL PRESSURE O2 93.3 mmHg (30.0-50.0); VENOUS STANDARD HCO3 21.8 MEQ/L; VENOUS TOTAL CO2 27.8 MEQ/L (24.0-28.0)
[2019-11-16 04:58] LABS: BASO % 0.1 % (0.0-1.0); HEMATOCRIT 44.7 % (42.0-52.0); HEMOGLOBIN 13.7 g/dl (13.5-17.5); LYMPH # 0.3 10^3/uL (1.5-5.0); LYMPH % 1.7 % (24.0-44.0); MEAN CORPUSCULAR HEMOGLOBIN 32.2 pg (27.0-33.0); MEAN CORPUSCULAR HGB CONC 30.6 g/dl (32.0-36.5); MEAN CORPUSCULAR VOLUME 104.9 fl (80.0-96.0); MONO # 1.5 10^3/uL (0.0-0.8); MONO % 7.6 % (0.0-5.0); NEUTROPHILS # 17.8 10^3/uL (1.5-8.5); NEUTROPHILS % 90.1 % (36.0-66.0); PLATELET COUNT, AUTOMATED 125 10^3/uL (150-450); RED BLOOD COUNT 4.26 10^6/uL (4.30-6.10); WHITE BLOOD COUNT 19.8 10^3/uL (4.0-10.0)
[2019-11-16] MEDS: LEVOTHYROXINE 100MCG TABLET (0.1MG) GT SCH (05:46)
[2019-11-16 06:50] LABS: CALCIUM LEVEL 8.2 MG/DL (8.8-10.2); CREATININE FOR GFR 1.53 MG/DL (0.70-1.30); GLOMERULAR FILTRATION RATE 48.6 (>49)
[2019-11-16] MEDS: MOM 30ML SUSPENSION UDC PO PRN (08:20)
[2019-11-16] MEDS: LANSOPRAZOLE SUSPENSION 30 MG/10 ML ORAL SYRINGE (FIRST-LANSOPRAZOLE) GT SCH (08:20)
[2019-11-16] MEDS: APIXABAN 5 MG TAB (ELIQUIS) FT SCH ×2 (08:20→20:58)
[2019-11-16] MEDS: predniSONE 20 MG TAB GT SCH (08:21)
[2019-11-16] MEDS: oxyCODONE 5MG TAB GT PRN ×3 (08:21→20:58)
[2019-11-16] MEDS: DOXYCYCLINE HYCLATE 100 MG in D5W MINI-BAG PLUS 100 ML IV SCH ×2 (09:37→21:04)
[2019-11-16] MEDS: cefTRIAXone SOD 1 GM in D5W MINI-BAG PLUS 50 ML IV SCH (10:51)
--- NOTE | 2019-11-16 13:49 | IPNPDOC ---
Text Note Date of Service The patient was seen on 11/16/19. NOTE SUBJECTIVE: Early this morning he was found to be nonresponsive by [facility] staff, his oxygen had fallen off his nose, his oxygen saturation was in 60s. He was jacob in color. He was put on non rebreather and after that he became arousable and he was moved to PCU. Patient does not remember anything till he was woken up. He did not complain of any SOB or any reflux or any severe bout of coughing. He feels tired this morning. No fever, denies any SOB. PHYSICAL EXAM: VITALS: As below GEN: well nourished / well developed/ NAD INTEGUMENT: He does not facial plethora HEENT:NCAT, moist mucous membranes, anicteric eyes. CVS: RRR/ distant heart sounds, no murmur or gallop LUNGS: No ronchi or whezing or crackles. Breath sounds are diminished ABDOMEN: he has a G-tube in place. The skin surrounding the tube is slightly erythematous and surrounded with green-yellow liquid discharge NEURO: no asterixis asterixis PSYCH: alert and oriented x 3 Labs: reviewed. IMAGING: CTA chest "IMPRESSION: 1. Mild centrilobular emphysema in the upper lung zones. 2. Infiltrate in the right lower lobe may represent atelectasis especially considering the presence of a large right hemidiaphragmatic eventration, although an infectious etiology should be excluded clinically. Parenchymal opa [place] left lower lobe likely atelectatic. Again, infection to be excluded clinically. 3. There is no aortic dissection. 3.6 cm fusiform ascending thoracic aortic aneurysm. 4. There are no pulmonary emboli. " MICROBIOLOGY: 11/14/19 Blood Culture, Received Pending 11/14/19 Respiratory Virus Panel (PCR) ([facility]) - Final, Complete 11/14/19 Blood Culture, Received Pending ASSESSMENT and PLAN: Mr. Araiza is a 68-year-old with a history of squamous cell tonsillar carcinoma, esophageal stricture with PEG tube placement, COPD with chronic O2 dependent respiratory failure, history of PE, with a reason, anxiety, CAD, dyslipidemia, and OA who was admitted for management of sepsis secondary to pneumonia. Acute episode of hypoxia overnight due to oxygen canula falling off during sleep. Community acquired pneumonia ceftriaxone and doxycycline Sepsis 2/2 PNA ceftriaxone and doxycycline Acute exacerbation of COPD 2/2 PNA Duonebs, Albuterol, Prednisone + PPI Chronic respiratory failure with hypoxia. 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 Hypothyroidism Levothyroxine CAD /Dyslipidemia Atorvastatin Chronic Macrocytic Anemia stable OA oxycodone History of PE xarelto. Chronic left lower lobe infiltrate (radiation fibrosis?) GERD Hiatal hernia repair Lansoprazole DVT PROPHYLAXIS: on xarelto VS,Fishbone, I+O VS, Fishbone, I+O Laboratory Tests 11/16/19 04:43 11/16/19 05:55 Vital Signs Date Time Temp Pulse Resp B/P (MAP) Pulse Ox O2 Delivery O2 Flow Rate FiO2 11/16/19 12:00 4.0 11/16/19 12:00 98.5 80 18 124/58 (80) 92 Nasal Cannula 11/16/19 07:36 50 I&O- Last 24 Hours up to 6 AM 11/16/19 06:00 Intake Total 1300 ml Output Total 1650 ml Balance -350 ml KARUNA DAILEY MD Nov 16, 2019 13:49
[2019-11-16] MEDS: ATORVASTATIN 20 MG TAB GT SCH (20:57)
[2019-11-17] VITALS (18 sets, daily range): BP systolic 99–138; BP diastolic 58–76; O2SAT 90–96
[2019-11-17] MEDS: IPRATROPIUM 0.5MG/ALBUTEROL 2.5MG INH SOL UD 3ML (DUONEB) NEB SCH ×4 (01:24→20:36)
[2019-11-17] MEDS: oxyCODONE 5MG TAB GT PRN ×4 (03:11→21:47)
[2019-11-17 05:51] LABS: BASO % 0.1 % (0.0-1.0); LYMPH # 0.5 10^3/uL (1.5-5.0); LYMPH % 4.8 % (24.0-44.0); MEAN CORPUSCULAR HEMOGLOBIN 31.3 pg (27.0-33.0); MEAN CORPUSCULAR HGB CONC 31.2 g/dl (32.0-36.5); MEAN CORPUSCULAR VOLUME 100.3 fl (80.0-96.0); MONO # 1.6 10^3/uL (0.0-0.8); MONO % 15.5 % (0.0-5.0); NEUTROPHILS # 8.1 10^3/uL (1.5-8.5); NEUTROPHILS % 79.3 % (36.0-66.0); PLATELET COUNT, AUTOMATED 111 10^3/uL (150-450); RED BLOOD COUNT 3.39 10^6/uL (4.30-6.10); WHITE BLOOD COUNT 10.2 10^3/uL (4.0-10.0)
[2019-11-17 06:01] LABS: BLOOD UREA NITROGEN 34 MG/DL (7-18); CARBON DIOXIDE LEVEL 41 MEQ/L (21-32); CHLORIDE LEVEL 98 MEQ/L (98-107); CREATININE FOR GFR 0.87 MG/DL (0.70-1.30); GLOMERULAR FILTRATION RATE > 60.0 (>49); GLUCOSE, FASTING 118 MG/DL (70-100); POTASSIUM SERUM 4.8 MEQ/L (3.5-5.1); SODIUM LEVEL 139 MEQ/L (136-145)
[2019-11-17 06:11] LABS: HEMOGLOBIN 10.6 g/dl (13.5-17.5)
[2019-11-17] MEDS: LEVOTHYROXINE 100MCG TABLET (0.1MG) GT SCH (07:08)
[2019-11-17] MEDS: APIXABAN 5 MG TAB (ELIQUIS) FT SCH ×2 (09:23→21:47)
[2019-11-17] MEDS: predniSONE 20 MG TAB GT SCH (09:23)
[2019-11-17] MEDS: LANSOPRAZOLE SUSPENSION 30 MG/10 ML ORAL SYRINGE (FIRST-LANSOPRAZOLE) GT SCH (09:23)
[2019-11-17] MEDS: DOXYCYCLINE HYCLATE 100 MG in D5W MINI-BAG PLUS 100 ML IV SCH ×2 (09:23→21:46)
[2019-11-17] MEDS: cefTRIAXone SOD 1 GM in D5W MINI-BAG PLUS 50 ML IV SCH (12:05)
--- NOTE | 2019-11-17 12:10 | IPNPDOC ---
Text Note Date of Service The patient was seen on 11/17/19. NOTE SUBJECTIVE: Feels very weak and tired. No acute events overnight. Oxygen requi rements at baseline however still complains of SOB. He is able to bring up some phlegm today. PHYSICAL EXAM: VITALS: As below GEN: well nourished / well developed/ NAD INTEGUMENT: He does not facial plethora HEENT:NCAT, moist mucous membranes, anicteric eyes. CVS: RRR/ distant heart sounds, no murmur or gallop LUNGS: No ronchi or whezing or crackles. Breath sounds are diminished ABDOMEN: he has a G-tube in place. The skin surrounding the tube is slightly erythematous and surrounded with green-yellow liquid discharge NEURO: no asterixis asterixis PSYCH: alert and oriented x 3 Labs: reviewed. IMAGING: CTA chest "IMPRESSION: 1. Mild centrilobular emphysema in the upper lung zones. 2. Infiltrate in the right lower lobe may represent atelectasis especially considering the presence of a large right hemidiaphragmatic eventration, although an infectious etiology should be excluded clinically. Parenchymal opacity left lower lobe likely atelectatic. Again, infection to be excluded clin ically. 3. There is no aortic dissection. 3.6 cm fusiform ascending thoracic aortic aneurysm. 4. There are no pulmonary emboli. " MICROBIOLOGY: 11/14/19 Blood Culture, Received Pending 11/14/19 Respiratory Virus Panel (PCR) ([facility]) - Final, Complete 11/14/19 Blood Culture, Received Pending ASSESSMENT and PLAN: Mr. Araiza is a 68-year-old with a history of squamous cell tonsillar carcinoma, esophageal stricture with PEG tube placement, COPD with chronic O2 dependent respiratory failure, history of PE, with a reason, anxiety, CAD, dyslipidemia, and OA who was admitted for management of sepsis secondary to pneumonia. Acute episode of hypoxia on 11/16/19 due to oxygen canula falling off during sleep. Community acquired pneumonia ceftriaxone and doxycycline Sepsis 2/2 PNA ceftriaxone and doxycycline Acute exacerbation of COPD 2/2 PNA Duonebs, Albuterol, Prednisone + PPI Chronic respiratory failure with hypoxia. 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 Hypothyroidism Levothyroxine CAD /Dyslipidemia Atorvastatin Chronic Macrocytic Anemia stable OA oxycodone History of PE xarelto. Chronic left lower lobe infiltrate (radiation fibrosis?) GERD Hiatal hernia repair Lansoprazole DVT PROPHYLAXIS: on xarelto VS,Fishbone, I+O VS, Fishbone, I+O Laboratory Tests 11/17/19 05:19 Vital Signs Date Time Temp Pulse Resp B/P (MAP) Pulse Ox O2 Delivery O2 Flow Rate FiO2 11/17/19 10:06 20 11/17/19 08:00 4.0 11/17/19 07:00 97.6 84 99/58 (72) 94 Nasal Cannula 11/16/19 07:36 50 I&O- Last 24 Hours up to 6 AM 11/17/19 05:59 Intake Total 1380 ml Output Total 450 ml Balance 930 ml KARUNA DAILEY MD Nov 17, 2019 12:10
[2019-11-17] MEDS ORDERED: FUROSEMIDE 40MG/4ML VIAL (J1940) IV ONE (17:15)
[2019-11-17] MEDS: ATORVASTATIN 20 MG TAB GT SCH (21:47)
[2019-11-18] VITALS (15 sets, daily range): BP systolic 116–144; BP diastolic 66–75; O2SAT 93–95
[2019-11-18] MEDS: IPRATROPIUM 0.5MG/ALBUTEROL 2.5MG INH SOL UD 3ML (DUONEB) NEB SCH ×4 (01:58→20:22)
[2019-11-18] MEDS: oxyCODONE 5MG TAB GT PRN ×4 (04:03→22:05)
[2019-11-18 05:56] LABS: HEMATOCRIT 36.5 % (42.0-52.0); HEMOGLOBIN 11.5 g/dl (13.5-17.5); LYMPH # 0.7 10^3/uL (1.5-5.0); LYMPH % 7.9 % (24.0-44.0); MEAN CORPUSCULAR HEMOGLOBIN 31.8 pg (27.0-33.0); MEAN CORPUSCULAR HGB CONC 31.5 g/dl (32.0-36.5); MEAN CORPUSCULAR VOLUME 100.8 fl (80.0-96.0); MONO # 1.4 10^3/uL (0.0-0.8); MONO % 15.8 % (0.0-5.0); NEUTROPHILS # 6.6 10^3/uL (1.5-8.5); NEUTROPHILS % 75.8 % (36.0-66.0); PLATELET COUNT, AUTOMATED 118 10^3/uL (150-450); RED BLOOD COUNT 3.62 10^6/uL (4.30-6.10); WHITE BLOOD COUNT 8.8 10^3/uL (4.0-10.0)
[2019-11-18 06:16] LABS: BLOOD UREA NITROGEN 20 MG/DL (7-18); CARBON DIOXIDE LEVEL 40 MEQ/L (21-32); CHLORIDE LEVEL 93 MEQ/L (98-107); CREATININE FOR GFR 0.65 MG/DL (0.70-1.30); GLOMERULAR FILTRATION RATE > 60.0 (>49); GLUCOSE, FASTING 113 MG/DL (70-100); POTASSIUM SERUM 3.7 MEQ/L (3.5-5.1); SODIUM LEVEL 135 MEQ/L (136-145)
[2019-11-18] MEDS: LEVOTHYROXINE 100MCG TABLET (0.1MG) GT SCH (06:25)
[2019-11-18] MEDS: DOXYCYCLINE HYCLATE 100 MG in D5W MINI-BAG PLUS 100 ML IV SCH ×2 (10:16→21:20)
[2019-11-18] MEDS: APIXABAN 5 MG TAB (ELIQUIS) FT SCH ×2 (10:17→20:18)
[2019-11-18] MEDS: LANSOPRAZOLE SUSPENSION 30 MG/10 ML ORAL SYRINGE (FIRST-LANSOPRAZOLE) GT SCH (10:17)
[2019-11-18] MEDS: predniSONE 20 MG TAB GT SCH (10:17)
[2019-11-18] MEDS: CEFEPIME HCL 2 GM in D5W MINI-BAG PLUS 50 ML IV SCH ×2 (10:23→20:18)
--- NOTE | 2019-11-18 14:11 | IPNPDOC ---
Text Note Date of Service The patient was seen on 11/18/19. NOTE SUBJECTIVE: No acute events overnight. No CP/palpitations. + sputum production. PHYSICAL EXAM: VITALS: As below GEN: well nourished / well developed/ NAD HEENT:NCAT, moist mucous membranes, anicteric eyes. CVS: RRR/ distant heart sounds, no murmur or gallop LUNGS: . Breath sounds are diminished. Fine crackles at the bases. No wheezing. No use of accessoty muscles ABDOMEN: he has a G-tube in place. The skin surrounding the tube is slightly erythematous. No bleeding/drainage. NEURO: no asterixis asterixis PSYCH: alert and oriented x 3 Labs: reviewed. IMAGING: CTA chest "IMPRESSION: 1. Mild centrilobular emphysema in the upper lung zones. 2. Infiltrate in the right lower lobe may represent atelectasis especially considering the presence of a large right hemidiaphragmatic eventration, although an infectious etiology should be excluded clinically. Parenchymal opacity left lower lobe likely atelectatic. Again, infection to be excluded clinically. 3. There is no aortic dissection. 3.6 cm fusiform ascending thoracic aortic aneurysm. 4. There are no pulmonary emboli. " MICROBIOLOGY: 11/14/19 Blood Culture, Received Pending 11/14/19 Respiratory Virus Panel (PCR) ([facility]) - Final, Complete 11/14/19 Blood Culture, Received Pending ASSESSMENT and PLAN: Mr. Araiza is a 68-year-old with a history of squamous cell tonsillar carcinoma, esophageal stricture with PEG tube placement, COPD with chronic O2 dependent respiratory failure, history of PE, with a reason, anxiety, CAD, dyslipidemia, and OA who was admitted for management of sepsis secondary to pneumonia. Acute episode of hypoxia on 11/16/19 due to oxygen canula falling off during sleep. Sepsis 2/2 PNA - sputum cx + Pseudomonas and MSSA - Cefepime and doxycycline - Bld cx negative Acute exacerbation of COPD 2/2 PNA Duonebs, Albuterol, Prednisone + PPI - improving, Chronic respiratory failure with hypoxia. continue nebs as above and oxygen supplementation - On 2L Home O2. Type II and STEMI /demand ischemia 2/2 tachycardia He denies CP - improved. 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 Hypothyroidism Levothyroxine CAD /Dyslipidemia Atorvastatin Chronic Macrocytic Anemia stable OA oxycodone History of PE xarelto. Chronic left lower lobe infiltrate (radiation fibrosis?) GERD Hiatal hernia repair Lansoprazole DVT PROPHYLAXIS: on xarelto VS,Fishbone, I+O VS, Fishbone, I+O Laboratory Tests 11/18/19 05:33 Vital Signs Date Time Temp Pulse Resp B/P (MAP) Pulse Ox O2 Delivery O2 Flow Rate FiO2 11/18/19 12:00 97.4 79 18 117/66 (83) 94 Nasal Cannula 3.0 11/16/19 07:36 50 I&O- Last 24 Hours up to 6 AM 11/18/19 05:59 Intake Total 750 ml Output Total 2850 ml Balance -2100 ml GONZALEZ MOJICA MD Nov 18, 2019 14:10
[2019-11-18] MEDS ORDERED: SLF 3 ML SYR IV PRN (17:00)
[2019-11-18] MEDS: MOM 30ML SUSPENSION UDC PO PRN (17:56)
[2019-11-18] MEDS ORDERED: GLUCOSE 4GM CHEW TABLET PO PRN (18:00)
[2019-11-18] MEDS ORDERED: GLUCAGON INJ 1MG VIAL SC PRN (18:00)
[2019-11-18] MEDS ORDERED: DEXTROSE 50% 50 ML SYRINGE IV PRN (18:00)
[2019-11-18] MEDS: HumaLOG INSULIN (NovoLOG) PER UNIT SC SCH (18:31)
[2019-11-18] MEDS: ATORVASTATIN 20 MG TAB GT SCH (20:18)
[2019-11-18] MEDS: SLF 3 ML SYR IV SCH (21:20)
[2019-11-19] VITALS: BP 112/58; O2SAT 94
[2019-11-19] MEDS: HumaLOG INSULIN (NovoLOG) PER UNIT SC SCH ×4 (01:06→18:26)
[2019-11-19] MEDS: IPRATROPIUM 0.5MG/ALBUTEROL 2.5MG INH SOL UD 3ML (DUONEB) NEB SCH ×4 (02:00→20:38)
[2019-11-19 04:00] VITALS: BP 117/69; O2SAT 92
[2019-11-19] MEDS: oxyCODONE 5MG TAB GT PRN ×4 (04:12→22:19)
[2019-11-19 05:56] LABS: BASO % 0.1 % (0.0-1.0); EOS % 0.2 % (0.0-3.0); HEMATOCRIT 35.8 % (42.0-52.0); HEMOGLOBIN 11.6 g/dl (13.5-17.5); LYMPH # 0.8 10^3/uL (1.5-5.0); LYMPH % 8.8 % (24.0-44.0); MEAN CORPUSCULAR HEMOGLOBIN 31.9 pg (27.0-33.0); MEAN CORPUSCULAR HGB CONC 32.4 g/dl (32.0-36.5); MEAN CORPUSCULAR VOLUME 98.4 fl (80.0-96.0); MONO # 1.1 10^3/uL (0.0-0.8); MONO % 12.8 % (0.0-5.0); NEUTROPHILS # 6.9 10^3/uL (1.5-8.5); NEUTROPHILS % 77.3 % (36.0-66.0); PLATELET COUNT, AUTOMATED 132 10^3/uL (150-450); RED BLOOD COUNT 3.64 10^6/uL (4.30-6.10); WHITE BLOOD COUNT 8.9 10^3/uL (4.0-10.0)
[2019-11-19 06:22] LABS: BLOOD UREA NITROGEN 14 MG/DL (7-18); CALCIUM LEVEL 8.1 MG/DL (8.8-10.2); CARBON DIOXIDE LEVEL 40 MEQ/L (21-32); CHLORIDE LEVEL 94 MEQ/L (98-107); CREATININE FOR GFR 0.62 MG/DL (0.70-1.30); GLOMERULAR FILTRATION RATE > 60.0 (>49); GLUCOSE, FASTING 90 MG/DL (70-100); SODIUM LEVEL 136 MEQ/L (136-145)
[2019-11-19] MEDS: SLF 3 ML SYR IV SCH ×3 (06:42→21:31)
[2019-11-19] MEDS: LEVOTHYROXINE 100MCG TABLET (0.1MG) GT SCH (06:42)
[2019-11-19 08:00] VITALS: BP 131/76
[2019-11-19] MEDS: predniSONE 20 MG TAB GT SCH (09:16)
[2019-11-19] MEDS: LANSOPRAZOLE SUSPENSION 30 MG/10 ML ORAL SYRINGE (FIRST-LANSOPRAZOLE) GT SCH (09:16)
[2019-11-19] MEDS: APIXABAN 5 MG TAB (ELIQUIS) FT SCH ×2 (09:16→20:37)
[2019-11-19] MEDS: CEFEPIME HCL 2 GM in D5W MINI-BAG PLUS 50 ML IV SCH ×2 (09:16→20:37)
[2019-11-19] MEDS: DOXYCYCLINE HYCLATE 100 MG in D5W MINI-BAG PLUS 100 ML IV SCH ×2 (10:11→21:30)
--- NOTE | 2019-11-19 10:42 | IPNPDOC ---
Text Note Date of Service The patient was seen on 11/19/19. NOTE SUBJECTIVE: No acute events overnight. + sputum production. No SOB PHYSICAL EXAM: VITALS: As below GEN: well nourished / well developed/ NAD HEENT:NCAT, moist mucous membranes, anicteric eyes. CVS: RRR/ distant heart sounds, no murmur or gallop LUNGS: . Breath sounds are diminished. Fine crackles at the bases. No wheezing. No use of accessoty muscles ABDOMEN: he has a G-tube in place. The skin surrounding the tube is slightly erythematous. No bleeding/drainage. NEURO: no asterixis asterixis PSYCH: alert and oriented x 3 Labs: reviewed. IMAGING: CTA chest "IMPRESSION: 1. Mild centrilobular emphysema in the upper lung zones. 2. Infiltrate in the right lower lobe may represent atelectasis especially considering the presence of a large right hemidiaphragmatic eventration, although an infectious etiology should be excluded clinically. Parenchymal opacity left lower lobe likely atelectatic. Again, infection to be excluded clinically. 3. There is no aortic dissection. 3.6 cm fusiform ascending thoracic aortic aneurysm. 4. There are no pulmonary emboli. " MICROBIOLOGY: 11/14/19 Blood Culture, Received Pending 11/14/19 Respiratory Virus Panel (PCR) ([facility]) - Final, Complete 11/14/19 Blood Culture, Received Pending ASSESSMENT and PLAN: Mr. Araiza is a 68-year-old with a history of squamous cell tonsillar carcinoma, esophageal stricture with PEG tube placement, COPD with chronic O2 dependent respiratory failure, history of PE, with a reason, anxiety, CAD, dyslipidemia, and OA who was admitted for management of sepsis secondary to pneumonia. Acute episode of hypoxia on 11/16/19 due to oxygen canula falling off during sleep. Sepsis 2/2 PNA - Improving - sputum cx + Pseudomonas and MSSA - Cefepime and doxycycline - Bld cx negative Acute exacerbation of COPD 2/2 PNA Duonebs, Albuterol, Prednisone + PPI - improving Chronic respiratory failure with hypoxia. continue nebs as above and oxygen supplementation - On 2L Home O2. Type II and STEMI /demand ischemia 2/2 tachycardia He denies CP - improved. 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 Hypothyroidism Levothyroxine CAD /Dyslipidemia Atorvastatin Chronic Macrocytic Anemia stable OA oxycodone History of PE xarelto. Chronic left lower lobe infiltrate (radiation fibrosis?) GERD Hiatal hernia repair Lansoprazole DVT PROPHYLAXIS: on xarelto VS,Fishbone, I+O VS, Fishbone, I+O Laboratory Tests 11/19/19 05:27 Vital Signs Date Time Temp Pulse Resp B/P (MAP) Pulse Ox O2 Delivery O2 Flow Rate FiO2 11/19/19 10:12 18 11/19/19 08:00 97.5 86 131/76 (94) 98 Nasal Cannula 2.0 11/16/19 07:36 50 I&O- Last 24 Hours up to 6 AM 11/19/19 06:00 Intake Total 2150 ml Output Total 2750 ml Balance -600 ml GONZALEZ MOJICA MD Nov 19, 2019 10:42
[2019-11-19 12:00] VITALS: BP 122/70
[2019-11-19 16:00] VITALS: BP 134/72
[2019-11-19 20:00] VITALS: BP 158/90; O2SAT 97
[2019-11-19] MEDS: ATORVASTATIN 20 MG TAB GT SCH (20:37)
[2019-11-20] VITALS (10 sets, daily range): BP systolic 101–154; BP diastolic 61–84; O2SAT 96–97
[2019-11-20] MEDS: HumaLOG INSULIN (NovoLOG) PER UNIT SC SCH ×4 (00:02→18:12)
[2019-11-20] MEDS: IPRATROPIUM 0.5MG/ALBUTEROL 2.5MG INH SOL UD 3ML (DUONEB) NEB SCH ×4 (02:00→18:23)
[2019-11-20] MEDS: LEVOTHYROXINE 100MCG TABLET (0.1MG) GT SCH (04:40)
[2019-11-20] MEDS: oxyCODONE 5MG TAB GT PRN ×4 (04:40→22:49)
[2019-11-20 05:51] LABS: BASO % 0.1 % (0.0-1.0); EOS # 0.1 10^3/uL (0.0-0.5); EOS % 0.6 % (0.0-3.0); HEMATOCRIT 36.6 % (42.0-52.0); LYMPH # 0.8 10^3/uL (1.5-5.0); MEAN CORPUSCULAR HGB CONC 32.8 g/dl (32.0-36.5); MEAN CORPUSCULAR VOLUME 97.6 fl (80.0-96.0); MONO # 1.1 10^3/uL (0.0-0.8); NEUTROPHILS # 7.4 10^3/uL (1.5-8.5); NEUTROPHILS % 78.1 % (36.0-66.0); PLATELET COUNT, AUTOMATED 128 10^3/uL (150-450); RED BLOOD COUNT 3.75 10^6/uL (4.30-6.10); WHITE BLOOD COUNT 9.5 10^3/uL (4.0-10.0)
[2019-11-20 06:07] LABS: BLOOD UREA NITROGEN 14 MG/DL (7-18); CALCIUM LEVEL 8.4 MG/DL (8.8-10.2); CARBON DIOXIDE LEVEL 40 MEQ/L (21-32); CHLORIDE LEVEL 96 MEQ/L (98-107); CREATININE FOR GFR 0.69 MG/DL (0.70-1.30); GLOMERULAR FILTRATION RATE > 60.0 (>49); GLUCOSE, FASTING 97 MG/DL (70-100); POTASSIUM SERUM 3.8 MEQ/L (3.5-5.1); SODIUM LEVEL 137 MEQ/L (136-145)
[2019-11-20] MEDS: SLF 3 ML SYR IV SCH ×3 (06:11→20:39)
[2019-11-20] MEDS: predniSONE 20 MG TAB GT SCH (08:46)
[2019-11-20] MEDS: APIXABAN 5 MG TAB (ELIQUIS) FT SCH ×2 (08:46→20:39)
[2019-11-20] MEDS: LANSOPRAZOLE SUSPENSION 30 MG/10 ML ORAL SYRINGE (FIRST-LANSOPRAZOLE) GT SCH (08:47)
[2019-11-20] MEDS: CEFEPIME HCL 2 GM in D5W MINI-BAG PLUS 50 ML IV SCH ×2 (08:47→20:39)
[2019-11-20] MEDS: DOXYCYCLINE HYCLATE 100 MG in D5W MINI-BAG PLUS 100 ML IV SCH ×2 (10:34→22:48)
--- NOTE | 2019-11-20 17:26 | IPNPDOC ---
Text Note Date of Service The patient was seen on 11/20/19. NOTE SUBJECTIVE: No acute events overnight. Patient's dyspnea is improving. States he's feels generally weak today. Patient has intermittent urinary retention and requires straight cath. PHYSICAL EXAM: VITALS: As below GEN: well nourished / well developed/ NAD HEENT:NCAT, moist mucous membranes, anicteric eyes. CVS: RRR/ distant heart sounds, no murmur or gallop LUNGS: . Breath sounds are diminished. Fine crackles at the bases. No wheezing. No use of accessoty muscles ABDOMEN: he has a G-tube in place. The skin surrounding the tube is slightly erythematous. No bleeding/drainage. NEURO: no asterixis asterixis PSYCH: alert and oriented x 3 Labs: reviewed. IMAGING: CTA chest "IMPRESSION: 1. Mild centrilobular emphysema in the upper lung zones. 2. Infiltrate in the right lower lobe may represent atelectasis especially considering the presence of a large right hemidiaphragmatic eventration, although an infectious etiology should be excluded clinically. Parenchymal opacity left lower lobe likely atelectatic. Again, infection to be excluded clinically. 3. There is no aortic dissection. 3.6 cm fusiform ascending thoracic aortic aneurysm. 4. There are no pulmonary emboli. " MICROBIOLOGY: 11/14/19 Blood Culture, Received Pending 11/14/19 Respiratory Virus Panel (PCR) ([facility]) - Final, Complete 11/14/19 Blood Culture, Received Pending ASSESSMENT and PLAN: Mr. Araiza is a 68-year-old with a history of squamous cell tonsillar carcinoma, esophageal stricture with PEG tube placement, COPD with chronic O2 dependent respiratory failure, history of PE, with a reason, anxiety, CAD, dyslipidemia, and OA who was admitted for management of sepsis secondary to pneumonia. Acute episode of hypoxia on 11/16/19 due to oxygen canula falling off during sleep. Sepsis 2/2 PNA - Improving - sputum cx + Pseudomonas and MSSA - Cefepime and doxycycline - Bld cx negative Acute exacerbation of COPD 2/2 PNA Duonebs, Albuterol, Prednisone + PPI - improving Chronic respiratory failure with hypoxia. continue nebs as above and oxygen supplementation - On 2L Home O2. Type II and STEMI /demand ischemia 2/2 tachycardia He denies CP - improved. 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 Hypothyroidism Levothyroxine CAD /Dyslipidemia Atorvastatin Chronic Macrocytic Anemia stable OA oxycodone History of PE xarelto. Chronic left lower lobe infiltrate (radiation fibrosis?) GERD Hiatal hernia repair Lansoprazole Intermittent urinary retention - Uses a straight cath - Flomax started - We'll need close outpatient follow-up with urology DVT PROPHYLAXIS: on eliquis Likely to be discharge in the next 24 hours if continues to improve. VS,Fishbone, I+O VS, Fishbone, I+O Laboratory Tests 11/20/19 05:20 Vital Signs Date Time Temp Pulse Resp B/P (MAP) Pulse Ox O2 Delivery O2 Flow Rate FiO2 11/20/19 17:15 18 11/20/19 16:45 Nasal Cannula 2.0 11/20/19 16:00 97.4 78 101/61 (74) 94 11/16/19 07:36 50 I&O- Last 24 Hours up to 6 AM 11/20/19 06:00 Intake Total 1200 ml Output Total 1725 ml Balance -525 ml GONZALEZ MOJICA MD Nov 20, 2019 17:26
[2019-11-20] MEDS: TAMSULOSIN 0.4 MG CAP PO SCH (18:15)
[2019-11-20] MEDS: ATORVASTATIN 20 MG TAB GT SCH (20:39)
[2019-11-21] VITALS (14 sets, daily range): BP systolic 99–137; BP diastolic 54–81; O2SAT 92–97
[2019-11-21] MEDS: HumaLOG INSULIN (NovoLOG) PER UNIT SC SCH ×3 (00:12→12:27)
[2019-11-21] MEDS: IPRATROPIUM 0.5MG/ALBUTEROL 2.5MG INH SOL UD 3ML (DUONEB) NEB SCH ×2 (02:00→07:11)
[2019-11-21] MEDS: oxyCODONE 5MG TAB GT PRN ×2 (05:12→11:15)
[2019-11-21] MEDS: SLF 3 ML SYR IV SCH (05:13)
[2019-11-21] MEDS: LEVOTHYROXINE 100MCG TABLET (0.1MG) GT SCH (05:13)
[2019-11-21 05:52] LABS: BASO % 0.1 % (0.0-1.0); EOS # 0.1 10^3/uL (0.0-0.5); EOS % 1.1 % (0.0-3.0); HEMATOCRIT 37.7 % (42.0-52.0); HEMOGLOBIN 12.2 g/dl (13.5-17.5); LYMPH # 0.9 10^3/uL (1.5-5.0); LYMPH % 10.4 % (24.0-44.0); MEAN CORPUSCULAR HEMOGLOBIN 31.6 pg (27.0-33.0); MEAN CORPUSCULAR HGB CONC 32.4 g/dl (32.0-36.5); MEAN CORPUSCULAR VOLUME 97.7 fl (80.0-96.0); MONO % 11.7 % (0.0-5.0); NEUTROPHILS # 6.4 10^3/uL (1.5-8.5); NEUTROPHILS % 75.2 % (36.0-66.0); PLATELET COUNT, AUTOMATED 144 10^3/uL (150-450); RED BLOOD COUNT 3.86 10^6/uL (4.30-6.10); WHITE BLOOD COUNT 8.6 10^3/uL (4.0-10.0)
[2019-11-21 06:06] LABS: BLOOD UREA NITROGEN 14 MG/DL (7-18); CALCIUM LEVEL 8.5 MG/DL (8.8-10.2); CARBON DIOXIDE LEVEL 37 MEQ/L (21-32); CHLORIDE LEVEL 96 MEQ/L (98-107); CREATININE FOR GFR 0.66 MG/DL (0.70-1.30); GLOMERULAR FILTRATION RATE > 60.0 (>49); GLUCOSE, FASTING 139 MG/DL (70-100); SODIUM LEVEL 136 MEQ/L (136-145)
[2019-11-21] MEDS: CEFEPIME HCL 2 GM in D5W MINI-BAG PLUS 50 ML IV SCH (08:42)
[2019-11-21] MEDS: TAMSULOSIN 0.4 MG CAP PO SCH (10:08)
[2019-11-21] MEDS: LANSOPRAZOLE SUSPENSION 30 MG/10 ML ORAL SYRINGE (FIRST-LANSOPRAZOLE) GT SCH (10:09)
[2019-11-21] MEDS: predniSONE 20 MG TAB GT SCH (10:09)
[2019-11-21] MEDS: DOXYCYCLINE HYCLATE 100 MG in D5W MINI-BAG PLUS 100 ML IV SCH (10:09)
[2019-11-21] MEDS: APIXABAN 5 MG TAB (ELIQUIS) FT SCH (10:15)
[2019-11-21] MEDS ORDERED: FLOM0.4C39 PO (12:18)
[2019-11-21] MEDS ORDERED: LEVO500T3 PO (12:18)
[2019-11-21 15:05] LABS: BODY FLUID CULTURE Not indicated. (.); LEGIONELLA ANTIGEN URINE Negative (Negative); ORGANISM ID Not indicated. (.); SPECIMEN SOURCE Urine (.); URINE STREP PNEUMONIAE ANTIGEN Negative (Negative)
--- NOTE | 2019-11-21 17:30 | DS.PDOC ---
Discharge Summary General Date of Admission Nov 14, 2019 at 22:36 Date of Discharge 11/21/19 Discharge Summary PROCEDURES PERFORMED DURING STAY: [None]. ADMITTING DIAGNOSES: Acute episode of hypoxia Sepsis 2/2 PNA Acute exacerbation of COPD 2/2 PNA Type II and STEMI /demand ischemia Chronic respiratory failure with hypoxia Lactic acidosis History of Squamous cell carcinoma of the right tonsil Hypothyroidism CAD /Dyslipidemia Chronic Macrocytic Anemia OA Chronic left lower lobe infiltrate History of PE GERD Intermittent urinary retention DISCHARGE DIAGNOSES: Acute episode of hypoxia Sepsis 2/2 PNA Acute exacerbation of COPD 2/2 PNA Type II and STEMI /demand ischemia Chronic respiratory failure with hypoxia Lactic acidosis History of Squamous cell carcinoma of the right tonsil Hypothyroidism CAD /Dyslipidemia Chronic Macrocytic Anemia OA Chronic left lower lobe infiltrate History of PE GERD Intermittent urinary retention COMPLICATIONS/CHIEF COMPLAINT: Cap, Copd, Demand Ischemia, Sepsis. HISTORY OF PRESENT ILLNESS: Mr. Araiza is a 68-year-old with a history of squamous cell tonsillar carcinoma, esophageal stricture with PEG tube placement, COPD with chronic O2 dependent respiratory failure, history of PE, with a reason, anxiety, CAD, dyslipidemia, and OA who was admitted for management of sepsis secondary to pneumonia. HOSPITAL COURSE: During hospital stay following issue addressed Sepsis 2/2 PNA - Improving - sputum cx + Pseudomonas and MSSA Patient received treatment with Cefepime and doxycycline - Bld cx negative Acute exacerbation of COPD 2/2 PNA Patient received treatment with Duonebs, Albuterol, Prednisone + PPI Chronic respiratory failure with hypoxia. Patient received treatment with oxygen supplementation - On 2L Home O2. 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 Hypothyroidism Levothyroxine CAD /Dyslipidemia Atorvastatin Chronic Macrocytic Anemia stable OA oxycodone History of PE xarelto. Chronic left lower lobe infiltrate (radiation fibrosis?) GERD Hiatal hernia repair Lansoprazole Intermittent urinary retention - Uses a straight cath - Flomax started - We'll need close outpatient follow-up with urology DISCHARGE MEDICATIONS: Please see below. ALLERGIES: Please see below. PHYSICAL EXAMINATION ON DISCHARGE: VITALS: As below GEN: well nourished / well developed/ NAD HEENT:NCAT, moist mucous membranes, anicteric eyes. CVS: RRR/ distant heart sounds, no murmur or gallop LUNGS: . Breath sounds are diminished. Fine crackles at the bases. No wheezing. No use of accessory muscles ABDOMEN: he has a G-tube in place. The skin surrounding the tube is slightly erythematous. No bleeding/drainage. NEURO: no asterixis asterixis PSYCH: alert and oriented LABORATORY DATA: Please see below. IMAGING: CTA chest "IMPRESSION: 1. Mild centrilobular emphysema in the upper lung zones. 2. Infiltrate in the right lower lobe may represent atelectasis especially c onsidering the presence of a large right hemidiaphragmatic eventration, although an infectious etiology should be excluded clinically. Parenchymal opacity left lower lobe likely atelectatic. Again, infection to be excluded clinically. 3. There is no aortic dissection. 3.6 cm fusiform ascending thoracic aortic aneurysm. 4. There are no pulmonary emboli. " PROGNOSIS: ACTIVITY: [As tolerated]. DIET:Cardiac DISCHARGE PLAN: Home DISPOSITION: 01 Home, Self-Care. DISCHARGE INSTRUCTIONS: Follow-up with urologist and PCP ITEMS TO FOLLOWUP ON ON OUTPATIENT: Continue incentive spirometry DISCHARGE CONDITION: [Stable]. TIME SPENT ON DISCHARGE: Greater than 20 minutes. Vital Signs/I&Os Vital Signs Date Time Temp Pulse Resp B/P (MAP) Pulse Ox O2 Delivery O2 Flow Rate FiO2 11/21/19 13:00 95 Nasal Cannula 2.0 11/21/19 12:00 98.3 71 19 119/62 (81) 11/16/19 07:36 50 I&O- Last 24 Hours up to 6 AM 11/21/19 06:00 Intake Total 700 ml Output Total 2875 ml Balance -2175 ml Laboratory Data Labs 24H Laboratory Tests 2 11/20/19 18:02: Bedside Glucose (Misc Panel) 186H 11/21/19 00:04: Bedside Glucose (Misc Panel) 136H 11/21/19 05:11: Bedside Glucose (Misc Panel) 137H 11/21/19 05:21: Immature Granulocyte % (Auto) 1.5, Neutrophils (%) (Auto) 75.2H, Lymphocytes (%) (Auto) 10.4L, Monocytes (%) (Auto) 11.7H, Eosinophils (%) (Auto) 1.1, Basophils (%) (Auto) 0.1, Neutrophils # (Auto) 6.4, Lymphocytes # (Auto) 0.9L, Monocytes # (Auto) 1.0H, Eosinophils # (Auto) 0.1, Basophils # (Auto) 0.0, Nucleated Red Blood Cells % (auto) 0.0, Anion Gap 3L, Glomerular Filtration Rate > 60.0, Calcium Level 8.5L 11/21/19 12:18: Bedside Glucose (Misc Panel) 131H CBC/BMP Laboratory Tests 11/21/19 05:21 FSBS Laboratory Tests Test 11/20/19 18:02 11/21/19 00:04 11/21/19 05:11 11/21/19 12:18 Range/Units Bedside Glucose (Misc Panel) 186 136 137 131 80-115 MG/DL Microbiology Microbiology 11/15/19 Gram Stain - Final, Complete 11/15/19 Sputum Culture - Final, Complete Pseudomonas Aeruginosa Staphylococcus Aureus 11/14/19 Blood Culture - Final, Complete NO GROWTH AFTER 5 DAYS 11/14/19 Respiratory Virus Panel (PCR) ([facility]) - Final, Complete 11/14/19 Blood Culture - Final, Complete NO GROWTH AFTER 5 DAYS Discharge Medications Scheduled Apixaban (Eliquis) 5 Mg Tablet, 5 MG FT BID, (Reported) Atorvastatin Calcium (Atorvastatin Calcium) 40 Mg Tablet, 40 MG FT QHS, (Reported) Levofloxacin (Levofloxacin) 500 Mg Tablet, 500 MG PO DAILY Levothyroxine Sodium (Levothyroxine Sodium) 100 Mcg Tab, 100 MCG FT DAILY, (Reported) Tamsulosin HCl (Flomax) 0.4 Mg Capsule, 0.4 MG PO DAILY Scheduled PRN Albuterol Sulf (Albuterol Sulfate) 2.5 Mg/3 Ml Vial.neb, 2.5 MG INH Q4H PRN for SOB/WHEEZING, (Reported) Oxycodone Hcl (Oxycodone HCl) 15 Mg Tablet, 30 MG FT Q6H PRN for PAIN, (Reported) Allergies Coded Allergies: latex (Verified Allergy, Intermediate, hives, 02/23/19) GEETA LEMUS DO Nov 21, 2019 17:30
== END 2019-11-21 14:01 | disposition home or self-care (01) | DRG 871 ==
LOC: EDBD 18:17 → M ED 19:45 → M ED INP 22:36 → M PCU 11-15 00:52
PROVIDERS: ADMIT Internal Medicine; ATTEND Internal Medicine
DX: A41.9 Sepsis, unspecified organism (principal); I21.A1 Myocardial infarction type 2; J15.1 Pneumonia due to Pseudomonas; J15.211 Pneumonia due to Methicillin susceptible Staphylococcus aureus; J44.0 Chronic obstructive pulmonary disease with (acute) lower respiratory infection; J44.1 Chronic obstructive pulmonary disease with (acute) exacerbation; J96.11 Chronic respiratory failure with hypoxia; E87.2 Acidosis; E03.9 Hypothyroidism, unspecified; M19.90 Unspecified osteoarthritis, unspecified site; K21.9 Gastro-esophageal reflux disease without esophagitis; I25.10 Atherosclerotic heart disease of native coronary artery without angina pectoris; D53.9 Nutritional anemia, unspecified; R33.9 Retention of urine, unspecified; E78.5 Hyperlipidemia, unspecified; Z86.711 Personal history of pulmonary embolism; Z99.81 Dependence on supplemental oxygen; Z79.899 Other long term (current) drug therapy; Z91.040 Latex allergy status; Z87.891 Personal history of nicotine dependence; Z93.1 Gastrostomy status

== ENCOUNTER 2019-12-20 11:00 | Inpatient (IN) | payer MEDICARE, MEDICAID ==
[~2019-12-20 11:00] MED LIST changes: +AMLO1TAB24 PO; -AMLO5TAB6 PO; +LEVO500T3 PO; +OXYC-1 PO
[2019-12-21] MEDS ORDERED: MORPHINE 2 MG/ML 1ML VIAL (J2270) As Ordered ONE ×2 (06:08→12:24)
[2019-12-21] MEDS ORDERED: LEVOTHYROXINE 100MCG TABLET (0.1MG) As Ordered ONE (06:08)
[2019-12-21] MEDS ORDERED: PANTOPRAZOLE 40MG VIAL (C9113 PER 1) As Ordered ONE (09:46)
[2019-12-21] MEDS ORDERED: APIXABAN 5 MG TAB (ELIQUIS) As Ordered ONE ×2 (09:46→19:56)
[2019-12-21] MEDS ORDERED: IPRATROPIUM 0.5MG/ALBUTEROL 2.5MG INH SOL UD 3ML (DUONEB) ONE (10:00)
[2019-12-21] MEDS ORDERED: AZITHROMYCIN INJ 500MG VIAL (J0456 PER 500MG) As Ordered ONE (12:06)
[2019-12-21] MEDS ORDERED: cefTRIAXone SOD 1GM VIAL (J0696 PER 250MG) As Ordered ONE (12:06)
[2019-12-21] MEDS ORDERED: methylPREDNISolone 125MG 2ML VIAL As Ordered ONE ×2 (13:28→19:57)
[2019-12-21] MEDS ORDERED: ATORVASTATIN 20 MG TAB As Ordered ONE (19:56)
[2019-12-22] MEDS ORDERED: LEVOTHYROXINE 100MCG TABLET (0.1MG) As Ordered ONE (05:53)
[2019-12-22] MEDS ORDERED: methylPREDNISolone 125MG 2ML VIAL As Ordered ONE (06:05)
[2019-12-22] MEDS ORDERED: PANTOPRAZOLE 40MG VIAL (C9113 PER 1) As Ordered ONE (08:37)
[2019-12-22] MEDS ORDERED: APIXABAN 5 MG TAB (ELIQUIS) As Ordered ONE ×2 (08:37→20:10)
[2019-12-22] MEDS ORDERED: MORPHINE 2 MG/ML 1ML VIAL (J2270) As Ordered ONE (08:37)
[2019-12-22] MEDS ORDERED: IPRATROPIUM 0.5MG/ALBUTEROL 2.5MG INH SOL UD 3ML (DUONEB) ONE (10:00)
[2019-12-22] MEDS ORDERED: AZITHROMYCIN INJ 500MG VIAL (J0456 PER 500MG) As Ordered ONE (11:01)
[2019-12-22] MEDS ORDERED: HumaLOG INSULIN (NovoLOG) PER UNIT As Ordered ONE ×2 (11:01→17:30)
[2019-12-22] MEDS ORDERED: cefTRIAXone SOD 1GM VIAL (J0696 PER 250MG) As Ordered ONE (11:01)
[2019-12-22] MEDS ORDERED: NEUTRA-PHOS 1.5 GM PACKET As Ordered ONE (11:06)
[2019-12-22] MEDS ORDERED: oxyCODONE 5MG TAB As Ordered ONE ×2 (12:00→17:32)
[2019-12-22] MEDS ORDERED: methylPREDNISolone 40MG 1ML VIAL As Ordered ONE (17:29)
[2019-12-22] MEDS ORDERED: ATORVASTATIN 20 MG TAB As Ordered ONE (20:10)
[2019-12-23] MEDS ORDERED: oxyCODONE 5MG TAB As Ordered ONE ×3 (06:38→23:55)
[2019-12-23] MEDS ORDERED: APIXABAN 5 MG TAB (ELIQUIS) As Ordered ONE ×2 (09:29→19:44)
[2019-12-23] MEDS ORDERED: PANTOPRAZOLE 40MG VIAL (C9113 PER 1) As Ordered ONE (09:29)
[2019-12-23] MEDS ORDERED: NEUTRA-PHOS 1.5 GM PACKET As Ordered ONE ×2 (09:30→19:44)
[2019-12-23] MEDS ORDERED: IPRATROPIUM 0.5MG/ALBUTEROL 2.5MG INH SOL UD 3ML (DUONEB) ONE (10:00)
[2019-12-23] MEDS ORDERED: AZITHROMYCIN INJ 500MG VIAL (J0456 PER 500MG) As Ordered ONE (11:14)
[2019-12-23] MEDS ORDERED: HumaLOG INSULIN (NovoLOG) PER UNIT As Ordered ONE ×2 (12:30→23:54)
[2019-12-23] MEDS ORDERED: cefTRIAXone SOD 1GM VIAL (J0696 PER 250MG) As Ordered ONE (12:31)
[2019-12-23] MEDS ORDERED: oxyCODONE 5MG TAB ONE (18:23)
[2019-12-23] MEDS ORDERED: HumaLOG INSULIN (NovoLOG) PER UNIT ONE (18:23)
[2019-12-23] MEDS ORDERED: predniSONE 20 MG TAB ONE (18:23)
[2019-12-23] MEDS ORDERED: ATORVASTATIN 20 MG TAB As Ordered ONE (19:44)
[2019-12-24] MEDS ORDERED: oxyCODONE 5MG TAB As Ordered ONE ×4 (00:01→18:26)
[2019-12-24] MEDS ORDERED: LEVOTHYROXINE 100MCG TABLET (0.1MG) As Ordered ONE (06:33)
[2019-12-24] MEDS ORDERED: HumaLOG INSULIN (NovoLOG) PER UNIT As Ordered ONE (06:38)
[2019-12-24] MEDS ORDERED: PANTOPRAZOLE 40MG VIAL (C9113 PER 1) As Ordered ONE (08:27)
[2019-12-24] MEDS ORDERED: APIXABAN 5 MG TAB (ELIQUIS) As Ordered ONE (08:27)
[2019-12-24] MEDS ORDERED: NEUTRA-PHOS 1.5 GM PACKET As Ordered ONE (08:27)
[2019-12-24] MEDS ORDERED: IPRATROPIUM 0.5MG/ALBUTEROL 2.5MG INH SOL UD 3ML (DUONEB) ONE (10:00)
[2019-12-24] MEDS ORDERED: cefTRIAXone SOD 1GM VIAL (J0696 PER 250MG) As Ordered ONE (12:32)
[2019-12-24] MEDS ORDERED: NEUTRA-PHOS 1.5 GM PACKET ONE (19:53)
[2019-12-24] MEDS ORDERED: ATORVASTATIN 20 MG TAB ONE (19:53)
[2019-12-24] MEDS ORDERED: APIXABAN 5 MG TAB (ELIQUIS) ONE (19:53)
[2019-12-25] MEDS ORDERED: oxyCODONE 5MG TAB ONE ×3 (00:49→19:42)
[2019-12-25] MEDS ORDERED: HumaLOG INSULIN (NovoLOG) PER UNIT ONE ×3 (00:49→23:38)
[2019-12-25] MEDS ORDERED: LEVOTHYROXINE 100MCG TABLET (0.1MG) ONE (06:47)
[2019-12-25] MEDS ORDERED: NEUTRA-PHOS 1.5 GM PACKET As Ordered ONE (08:47)
[2019-12-25] MEDS ORDERED: APIXABAN 5 MG TAB (ELIQUIS) As Ordered ONE (08:47)
[2019-12-25] MEDS ORDERED: PANTOPRAZOLE 40MG VIAL (C9113 PER 1) As Ordered ONE (08:47)
[2019-12-25] MEDS ORDERED: IPRATROPIUM 0.5MG/ALBUTEROL 2.5MG INH SOL UD 3ML (DUONEB) ONE (10:00)
[2019-12-25] MEDS ORDERED: oxyCODONE 5MG TAB As Ordered ONE (12:57)
[2019-12-25] MEDS ORDERED: predniSONE 20 MG TAB ONE ×2 (18:18→18:22)
[2019-12-25] MEDS ORDERED: NEUTRA-PHOS 1.5 GM PACKET ONE (21:00)
[2019-12-25] MEDS ORDERED: ATORVASTATIN 20 MG TAB ONE (23:21)
[2019-12-25] MEDS ORDERED: APIXABAN 5 MG TAB (ELIQUIS) ONE (23:21)
[2019-12-26] MEDS ORDERED: oxyCODONE 5MG TAB As Ordered ONE ×4 (02:08→22:11)
[2019-12-26] MEDS ORDERED: LEVOTHYROXINE 100MCG TABLET (0.1MG) As Ordered ONE (05:47)
[2019-12-26] MEDS ORDERED: HumaLOG INSULIN (NovoLOG) PER UNIT As Ordered ONE (05:51)
[2019-12-26] MEDS ORDERED: APIXABAN 5 MG TAB (ELIQUIS) As Ordered ONE ×2 (09:39→21:01)
[2019-12-26] MEDS ORDERED: PANTOPRAZOLE 40MG VIAL (C9113 PER 1) As Ordered ONE (09:39)
[2019-12-26] MEDS ORDERED: ACETAMINOPHEN TAB 650MG DOSE (2X325MG) As Ordered ONE (09:48)
[2019-12-26] MEDS ORDERED: oxyCODONE 10 MG CR TAB As Ordered ONE (09:57)
[2019-12-26] MEDS ORDERED: IPRATROPIUM 0.5MG/ALBUTEROL 2.5MG INH SOL UD 3ML (DUONEB) ONE (10:00)
[2019-12-26] MEDS ORDERED: NEUTRA-PHOS 1.5 GM PACKET ONE (13:00)
[2019-12-26] MEDS ORDERED: CLINDAMYCIN 150MG CAPSULE As Ordered ONE ×2 (14:57→21:01)
[2019-12-26] MEDS ORDERED: MIRALAX *UNIT DOSE* 17GM PACKET As Ordered ONE (14:57)
[2019-12-26] MEDS ORDERED: LACTOBACILLUS ACIDOPHILUS CAP (BACID) As Ordered ONE ×2 (14:57→21:01)
[2019-12-26] MEDS ORDERED: ONDANSETRON 4 MG TAB As Ordered ONE (18:06)
[2019-12-26] MEDS ORDERED: predniSONE 20 MG TAB As Ordered ONE (18:07)
[2019-12-26] MEDS ORDERED: ATORVASTATIN 20 MG TAB As Ordered ONE (21:01)
[2019-12-27] MEDS ORDERED: HumaLOG INSULIN (NovoLOG) PER UNIT As Ordered ONE ×2 (02:38→06:00)
[2019-12-27] MEDS ORDERED: LEVOTHYROXINE 100MCG TABLET (0.1MG) As Ordered ONE (05:52)
[2019-12-27] MEDS ORDERED: CLINDAMYCIN 150MG CAPSULE As Ordered ONE (05:53)
[2019-12-27] MEDS ORDERED: oxyCODONE 5MG TAB As Ordered ONE ×2 (05:54→12:08)
[2019-12-27] MEDS ORDERED: ESCI10TA2 PO (09:37)
[2019-12-27] MEDS ORDERED: IPRATROPIUM 0.5MG/ALBUTEROL 2.5MG INH SOL UD 3ML (DUONEB) ONE (10:00)
[2019-12-27] MEDS ORDERED: APIXABAN 5 MG TAB (ELIQUIS) As Ordered ONE (10:00)
[2019-12-27] MEDS ORDERED: PANTOPRAZOLE 40MG VIAL (C9113 PER 1) As Ordered ONE (10:00)
[2019-12-27] MEDS ORDERED: LACTOBACILLUS ACIDOPHILUS CAP (BACID) As Ordered ONE (10:00)
[2019-12-27] MEDS ORDERED: MIRALAX *UNIT DOSE* 17GM PACKET As Ordered ONE (10:00)
[2019-12-27] MEDS ORDERED: ONDANSETRON 4 MG TAB As Ordered ONE (10:01)
[2019-12-27] MEDS ORDERED: ONDANSETRON 4 MG TAB PO PRN (10:45)
[2019-12-27] MEDS ORDERED: ALBUTEROL SULFATE 2.5 MG/0.5 ML INH NEB SOLN INH PRN (10:45)
[2019-12-27] MEDS ORDERED: DEXTROSE 50% 50 ML SYRINGE IV PRN (10:45)
[2019-12-27] MEDS ORDERED: ACETAMINOPHEN TAB 650MG DOSE (2X325MG) PEG PRN (10:45)
[2019-12-27] MEDS ORDERED: GLUCAGON INJ 1MG VIAL SC PRN (10:45)
[2019-12-27] MEDS ORDERED: GLUCOSE 4GM CHEW TABLET PO PRN (10:45)
[2019-12-27] MEDS ORDERED: CLINDAMYCIN 150MG CAPSULE ONE (15:30)
[2019-12-27] MEDS ORDERED: predniSONE 20 MG TAB ONE (17:34)
[2019-12-27] MEDS ORDERED: oxyCODONE 5MG TAB ONE (17:35)
[2019-12-27] MEDS: IPRATROPIUM 0.5MG/ALBUTEROL 2.5MG INH SOL UD 3ML (DUONEB) INH SCH (20:36)
[2019-12-27] MEDS: LACTOBACILLUS ACIDOPHILUS CAP (BACID) PEG SCH (21:37)
[2019-12-27] MEDS: APIXABAN 5 MG TAB (ELIQUIS) PEG SCH (21:38)
[2019-12-27] MEDS: NEUTRA-PHOS 1.5 GM PACKET PEG SCH (21:38)
[2019-12-27] MEDS: CLINDAMYCIN 150MG CAPSULE PO SCH (21:38)
[2019-12-27 21:50] LABS: HEMATOCRIT 36.6 % (42.0-52.0); HEMOGLOBIN 11.8 g/dl (13.5-17.5); MEAN CORPUSCULAR HEMOGLOBIN 31.8 pg (27.0-33.0); MEAN CORPUSCULAR HGB CONC 32.2 g/dl (32.0-36.5); MEAN CORPUSCULAR VOLUME 98.7 fl (80.0-96.0); PLATELET COUNT, AUTOMATED 133 10^3/uL (150-450); RED BLOOD COUNT 3.71 10^6/uL (4.30-6.10); WHITE BLOOD COUNT 8.8 10^3/uL (4.0-10.0)
[2019-12-27 22:00] VITALS: BP 111/65
[2019-12-27] MEDS ORDERED: CLINDAMYCIN 300 MG in IV 1 EA IV SCH (22:00)
[2019-12-28] MEDS: oxyCODONE 5MG TAB PEG PRN ×5 (00:14→23:49)
[2019-12-28] MEDS: HumaLOG INSULIN (NovoLOG) PER UNIT SC SCH ×5 (00:15→23:49)
[2019-12-28] MEDS: IPRATROPIUM 0.5MG/ALBUTEROL 2.5MG INH SOL UD 3ML (DUONEB) INH SCH ×7 (04:00→23:25)
[2019-12-28 06:00] VITALS: BP 151/72
[2019-12-28] MEDS: LEVOTHYROXINE 100MCG TABLET (0.1MG) PEG SCH (06:16)
[2019-12-28] MEDS: CLINDAMYCIN 150MG CAPSULE PO SCH ×3 (06:16→21:21)
[2019-12-28] MEDS: predniSONE 20 MG TAB PEG SCH (09:39)
[2019-12-28] MEDS: LACTOBACILLUS ACIDOPHILUS CAP (BACID) PEG SCH ×2 (09:39→21:21)
[2019-12-28] MEDS: MIRALAX *UNIT DOSE* 17GM PACKET PO PRN (09:40)
[2019-12-28] MEDS: APIXABAN 5 MG TAB (ELIQUIS) PEG SCH ×2 (09:40→21:21)
[2019-12-28] MEDS: ATORVASTATIN 20 MG TAB PEG SCH (09:40)
[2019-12-28] MEDS: PANTOPRAZOLE 40MG VIAL (C9113 PER 1) IV SCH (09:41)
[2019-12-28] MEDS: NEUTRA-PHOS 1.5 GM PACKET PEG SCH ×2 (09:41→21:21)
[2019-12-28 14:00] VITALS: BP 107/56
--- NOTE | 2019-12-28 21:30 | IPNPDOC ---
Date Seen The patient was seen on 12/28/19. Progress Note SUBJECTIVE: doing well, comfortable. States pain in lower back, working with PT, likely positional. No subjective fevers, chills. No pain at PEG tube site. OBJECTIVE PHYSICAL EXAMINATION: VITAL SIGNS: Please see below. GENERAL: NAD HEENT: PERLLA CARDIOVASCULAR: RRR, normal S1, S2. RESPIRATORY: lungs CTAB. ABDOMINAL: soft, non tender. PEG tube insertion area of erythema, minimal discharge. non tender to palpation. EXTREMITIES: no deform NEUROLOGICAL: no focal neuro deficites PSYCHOLOGICAL: calm, cooperative LABORATORY DATA, IMAGING STUDIES, MICROBIOLOGY: Please see below. DVT prophylaxis ordered?: Y ASSESSMENT AND PLAN: 69 yo M with a hx of tonsial SCC, s/p rad, esophageal stricture requiring PEG tube feeds. Admitted for cellulitis of PEG site. PROBLEMS: 1. PEG site cellulitis: clindamycin 300 mg q6h PO. cultures isolated klebsiella, ESBL. ID consult in am. 2. Nausea: impvored. No BM. Obtain 1 view plain film xray. 3. acute on chronic resp failure: 2/2 copd. 1 day prednisone left. duonebs. home O2. 4. esophageal stricture: PEG tube in situe. 5. chronic anemiaL stable. CBC in am 6. CAD s/p stents: atorvastatin 7. hx of PE: eliquis 8. R tonsil squamous cell ca: outpatient heme/onc 9. thrombocytopenia: chronic, check CBC in am 10. DVT ppx: eliquis DISPOSITION: home with family support, services. PT/OT. VS, I&O, 24H, Fishbone Vital Signs/I&O Vital Signs Date Time Temp Pulse Resp B/P (MAP) Pulse Ox O2 Delivery O2 Flow Rate FiO2 12/28/19 18:45 18 96 Nasal Cannula 2.0 12/28/19 14:00 98.7 70 107/56 (73) 12/28/19 10:31 98 I&O- Last 24 Hours up to 6 AM 12/28/19 06:00 Intake Total 680 ml Output Total 1000 ml Balance -320 ml MATTHEW OJEDA MD Dec 28, 2019 21:30
[2019-12-28 22:00] VITALS: BP 106/60
[2019-12-29] MEDS: IPRATROPIUM 0.5MG/ALBUTEROL 2.5MG INH SOL UD 3ML (DUONEB) INH SCH ×6 (03:46→23:07)
[2019-12-29] MEDS: oxyCODONE 5MG TAB PEG PRN ×3 (05:47→18:34)
[2019-12-29] MEDS: LEVOTHYROXINE 100MCG TABLET (0.1MG) PEG SCH (05:47)
[2019-12-29] MEDS: CLINDAMYCIN 150MG CAPSULE PO SCH ×2 (05:48→14:38)
[2019-12-29 06:00] VITALS: BP 97/60
[2019-12-29] MEDS: HumaLOG INSULIN (NovoLOG) PER UNIT SC SCH ×3 (06:26→18:33)
[2019-12-29 06:53] LABS: BASO % 0.4 % (0.0-1.0); EOS % 0.4 % (0.0-3.0); HEMATOCRIT 37.1 % (42.0-52.0); LYMPH # 0.8 10^3/uL (1.5-5.0); LYMPH % 10.4 % (24.0-44.0); MEAN CORPUSCULAR HEMOGLOBIN 31.8 pg (27.0-33.0); MEAN CORPUSCULAR HGB CONC 32.3 g/dl (32.0-36.5); MEAN CORPUSCULAR VOLUME 98.4 fl (80.0-96.0); MONO # 0.8 10^3/uL (0.0-0.8); MONO % 11.4 % (0.0-5.0); NEUTROPHILS # 5.5 10^3/uL (1.5-8.5); NEUTROPHILS % 75.4 % (36.0-66.0); PLATELET COUNT, AUTOMATED 142 10^3/uL (150-450); RED BLOOD COUNT 3.77 10^6/uL (4.30-6.10); WHITE BLOOD COUNT 7.3 10^3/uL (4.0-10.0)
--- NOTE | 2019-12-29 07:07 | IPNPDOC ---
Date Seen The patient was seen on 12/29/19. Progress Note SUBJECTIVE: doing well, comfortable. States pain in lower back, working with PT, likely positional. No subjective fevers, chills. No pain at PEG tube site. OBJECTIVE PHYSICAL EXAMINATION: VITAL SIGNS: Please see below. GENERAL: NAD HEENT: PERLLA CARDIOVASCULAR: RRR, normal S1, S2. RESPIRATORY: lungs CTAB. ABDOMINAL: soft, non tender. PEG tube insertion area of erythema, minimal discharge. non tender to palpation. EXTREMITIES: no deform NEUROLOGICAL: no focal neuro deficites PSYCHOLOGICAL: calm, cooperative LABORATORY DATA, IMAGING STUDIES, MICROBIOLOGY: Please see below. DVT prophylaxis ordered?: Y ASSESSMENT AND PLAN: 69 yo M with a hx of tonsilar SCC, s/p rad, esophageal stricture requiring PEG tube feeds. Admitted for cellulitis of PEG site. PROBLEMS: 1. PEG site cellulitis: ID consulted. Stopped clindamycin 300 mg q6h PO. Topical gentamicin oitntment at cellulitis site. cultures isolated klebsiella 2. Constipation: milk of magnesia. 3. acute on chronic resp failure: 2/2 copd. 1 day prednisone left. duonebs. home O2. 4. esophageal stricture: PEG tube in situ 5. chronic anemiaL stable. CBC in am 6. CAD s/p stents: atorvastatin 7. hx of PE: eliquis 8. R tonsil squamous cell ca: outpatient heme/onc 9. thrombocytopenia: chronic, check CBC in am 10. DVT ppx: eliquis DISPOSITION: home with family support, services. PT/OT. VS, I&O, 24H, Fishbone Vital Signs/I&O Vital Signs Date Time Temp Pulse Resp B/P (MAP) Pulse Ox O2 Delivery O2 Flow Rate FiO2 12/29/19 06:37 18 95 Nasal Cannula 2.0 12/29/19 06:00 97.5 61 97/60 (72) 12/28/19 10:31 98 I&O- Last 24 Hours up to 6 AM 12/29/19 06:00 Intake Total 1895 ml Output Total 650 ml Balance 1245 ml Laboratory Data 24H LABS Laboratory Tests 2 12/29/19 06:05: Immature Granulocyte % (Auto) 2.0, Neutrophils (%) (Auto) 75.4H, Lymphocytes (%) (Auto) 10.4L, Monocytes (%) (Auto) 11.4H, Eosinophils (%) (Auto) 0.4, Basophils (%) (Auto) 0.4, Neutrophils # (Auto) 5.5, Lymphocytes # (Auto) 0.8L, Monocytes # (Auto) 0.8, Eosinophils # (Auto) 0.0, Basophils # (Auto) 0.0, Nucleated Red Blood Cells % (auto) 0.0 CBC/BMP Laboratory Tests 12/29/19 06:05 MATTHEW OJEDA MD Dec 29, 2019 07:07
[2019-12-29 07:26] LABS: ALBUMIN 2.5 GM/DL (3.2-5.2); ALT/SGPT 56 U/L (12-78); BILIRUBIN,TOTAL 0.4 MG/DL (0.2-1.0); BLOOD UREA NITROGEN 13 MG/DL (7-18); CALCIUM LEVEL 8.5 MG/DL (8.8-10.2); CARBON DIOXIDE LEVEL 38 MEQ/L (21-32); CHLORIDE LEVEL 101 MEQ/L (98-107); CREATININE FOR GFR 0.79 MG/DL (0.70-1.30); GLOMERULAR FILTRATION RATE > 60.0 (>49); GLUCOSE, FASTING 126 MG/DL (70-100); MAGNESIUM LEVEL 2.2 MG/DL (1.8-2.4); PHOSPHORUS LEVEL 3.5 MG/DL (2.5-4.9); POTASSIUM SERUM 4.1 MEQ/L (3.5-5.1); SODIUM LEVEL 138 MEQ/L (136-145); TOTAL PROTEIN 5.4 GM/DL (6.4-8.2)
[2019-12-29] MEDS ORDERED: MOM 30ML SUSPENSION UDC PO ONE (10:00)
[2019-12-29] MEDS: MIRALAX *UNIT DOSE* 17GM PACKET PO PRN (10:17)
[2019-12-29] MEDS: LACTOBACILLUS ACIDOPHILUS CAP (BACID) PEG SCH ×2 (10:17→20:58)
[2019-12-29] MEDS: NEUTRA-PHOS 1.5 GM PACKET PEG SCH ×2 (10:18→20:58)
[2019-12-29] MEDS: APIXABAN 5 MG TAB (ELIQUIS) PEG SCH ×2 (10:18→20:58)
[2019-12-29] MEDS: predniSONE 20 MG TAB PEG SCH (10:18)
[2019-12-29] MEDS: PANTOPRAZOLE 40MG VIAL (C9113 PER 1) IV SCH (10:18)
[2019-12-29] MEDS: ATORVASTATIN 20 MG TAB PEG SCH (10:18)
[2019-12-29 14:00] VITALS: BP 93/53
[2019-12-29] MEDS: GENTAMICIN SULFATE 0.1% OINT 15 GM TOP SCH (20:58)
[2019-12-29 22:00] VITALS: BP 100/64
[2019-12-30] MEDS: oxyCODONE 5MG TAB PEG PRN ×3 (00:16→12:24)
[2019-12-30] MEDS: IPRATROPIUM 0.5MG/ALBUTEROL 2.5MG INH SOL UD 3ML (DUONEB) INH SCH ×4 (03:01→15:51)
[2019-12-30] MEDS: LEVOTHYROXINE 100MCG TABLET (0.1MG) PEG SCH (05:33)
[2019-12-30 06:00] VITALS: BP 128/62
[2019-12-30] MEDS: HumaLOG INSULIN (NovoLOG) PER UNIT SC SCH ×3 (06:00→12:00)
[2019-12-30] MEDS: NEUTRA-PHOS 1.5 GM PACKET PEG SCH (10:17)
[2019-12-30] MEDS: LACTOBACILLUS ACIDOPHILUS CAP (BACID) PEG SCH (10:17)
[2019-12-30] MEDS: ATORVASTATIN 20 MG TAB PEG SCH (10:17)
[2019-12-30] MEDS: PANTOPRAZOLE 40MG VIAL (C9113 PER 1) IV SCH (10:17)
[2019-12-30] MEDS: predniSONE 20 MG TAB PEG SCH (10:17)
[2019-12-30] MEDS: APIXABAN 5 MG TAB (ELIQUIS) PEG SCH (10:18)
[2019-12-30] MEDS: GENTAMICIN SULFATE 0.1% OINT 15 GM TOP SCH (10:19)
--- NOTE | 2019-12-30 13:32 | DS.PDOC ---
Discharge Summary General Date of Admission Dec 21, 2019 at 03:25 Date of Discharge 12/30/19 Primary Care Physician: MARY BINGHAM DO Attending Physician: MATTHEW OJEDA MD Discharge Summary PROCEDURES PERFORMED DURING STAY: [None]. ADMITTING DIAGNOSES: 1. Acute hypercarbic respiratory failure. 2. COPD exacerbation 3. Aspiration pneumonitis 4. CAD 5. Squamous cell carcinoma of R tonsil 6. Enteric feeding via PEG tube DISCHARGE DIAGNOSES: 1. Acute hypercarbic respiratory failure. 2. COPD exacerbation 3. Aspiration pneumonitis 4. CAD 5. Squamous cell carcinoma of R tonsil 6. Enteric feeding via PEG tube 7. Cellulitis ESBL of PEG tube site. COMPLICATIONS/CHIEF COMPLAINT: SOB. HISTORY OF PRESENT ILLNESS: Mr. Sherwood is a 69 yo M with a hx of squamous cell carcinoma of R tonsil (s/p chemo and radiation), esophageal strictures (2/2 radiation), COPD on 2L home O2, PE, CAD. He is cared for by his son, providing 24 hour care. He presented to ED with complaint of worsening shortness of breath. He developed respiratory distress with episodes of unresponsiveness. In the ED, ABG pH 7.2, pCO2 82.3. CXR negative for infilrate. Placed on bipap. Patient denies fevers, chills, n/v/d, CP and palpitations. HOSPITAL COURSE: admit for acurte resp failure. Pulm on consult. Bipap. IV ceftriaxone and azithro. Methypred, transition to PO prednisone. Developed cellulitis of PEG tube site. ESBL. Completed 3 days of clinda, DC, switched to gent ointment given sensitivities. The issues were addressed as follows. 1. PEG site cellulitis: ID consulted. Stopped clindamycin 300 mg q6h PO. Topical gentamicin oitntment at cellulitis site. cultures isolated klebsiella 2. Constipation: milk of magnesia. 3. acute on chronic resp failure: 2/2 copd. 1 day prednisone left. duonebs. home O2. 4. esophageal stricture: PEG tube in situ 5. chronic anemiaL stable. CBC in am 6. CAD s/p stents: atorvastatin 7. hx of PE: eliquis 8. R tonsil squamous cell ca: outpatient heme/onc 9. thrombocytopenia: chronic, check CBC in am 10. DVT ppx: eliquis DISCHARGE MEDICATIONS: Please see below. ALLERGIES: Please see below. PHYSICAL EXAMINATION ON DISCHARGE: VITAL SIGNS: Please see below. GENERAL: NAD HEENT: PERLLA CARDIOVASCULAR: RRR, normal S1, S2. RESPIRATORY: lungs CTAB. ABDOMINAL: soft, non tender. PEG tube insertion improved erythema, no drainage. non tender to palpation. EXTREMITIES: no deform NEUROLOGICAL: no focal neuro deficits PSYCHOLOGICAL: calm, cooperative LABORATORY DATA: Please see below. PROGNOSIS: good ACTIVITY: [As tolerated]. DIET: tube feeds via PEG DISCHARGE PLAN: DC home with family support, PCP f/u DISPOSITION: DC home with family support DISCHARGE INSTRUCTIONS: 1. follow up with PCP within 7 days 2. Continue gentamycin ointment at PEG site 3. follow up with heme/onc for ENT malignancy 4. C/w peg tube feeds. ITEMS TO FOLLOWUP ON ON OUTPATIENT: 1. constipation, improved on DC but may persist. DISCHARGE CONDITION: [Stable]. TIME SPENT ON DISCHARGE: Greater than [30] minutes. Vital Signs/I&Os Vital Signs Date Time Temp Pulse Resp B/P (MAP) Pulse Ox O2 Delivery O2 Flow Rate FiO2 12/30/19 12:54 18 12/30/19 06:15 95 Nasal Cannula 2.0 12/30/19 06:00 98.1 70 128/62 (84) 12/28/19 10:31 98 l I&O- Last 24 Hours up to 6 AM 12/30/19 06:00 Intake Total 1600 ml Output Total 2475 ml Balance -875 ml Discharge Medications Scheduled Apixaban (Eliquis) 5 Mg Tablet, 5 MG FT BID, (Reported) Atorvastatin Calcium (Atorvastatin Calcium) 40 Mg Tablet, 40 MG FT QHS, (Reported) Escitalopram Oxalate (Escitalopram Oxalate) 10 Mg Tablet, 10 MG PO DAILY, (Reported) Fluticasone Propion/Salmeterol (Advair Hfa 115-21 Mcg Inhaler) 12 Gm Hfa.aer.ad, 2 PUFF INH BID Gentamicin Sulfate (Gentamicin Sulfate) 15 Gm Oint...g., 0 DOSE TOP BID Levothyroxine Sodium (Levothyroxine Sodium) 100 Mcg Tab, 100 MCG FT DAILY, (Reported) Tamsulosin HCl (Flomax) 0.4 Mg Capsule, 0.4 MG PO DAILY Scheduled PRN Albuterol Sulfate (Ventolin Hfa) 18 Gm Hfa.aer.ad, 2 PUFF INH Q4-6HP PRN for wheezing Oxycodone Hcl (Oxycodone HCl) 15 Mg Tablet, 30 MG FT Q6H PRN for PAIN, (Reported) Polyethylene Glycol 3350 (Miralax) 119 Gm Powder, 17 GRAM PO DAILY PRN for CONSTIPATION dissolve in water Allergies Coded Allergies: latex (Verified Allergy, Intermediate, hives, 02/23/19) MATTHEW OJEDA MD Dec 30, 2019 13:32
[2019-12-30 14:00] VITALS: BP 141/89
[2019-12-30] MEDS ORDERED: GENT1OI TOP (14:32)
[2019-12-30] MEDS ORDERED: VENTAER INH (14:34)
[2019-12-30] MEDS ORDERED: SYMB80INH INH (14:35)
[2019-12-30] MEDS ORDERED: MIRA3350 PO (14:37)
[2019-12-30] MEDS ORDERED: ADVA115A INH (15:49)
[2019-12-31 23:21] LABS: ALBUMIN 2.4 GM/DL (3.2-5.2); ALT/SGPT 49 U/L (12-78); BILIRUBIN,TOTAL 0.3 MG/DL (0.2-1.0); BLOOD UREA NITROGEN 15 MG/DL (7-18); CALCIUM LEVEL 8.1 MG/DL (8.8-10.2); CARBON DIOXIDE LEVEL 36 MEQ/L (21-32); CHLORIDE LEVEL 99 MEQ/L (98-107); CREATININE FOR GFR 0.78 MG/DL (0.70-1.30); GLOMERULAR FILTRATION RATE > 60.0 (>49); GLUCOSE, FASTING 211 MG/DL (70-100); POTASSIUM SERUM 4.8 MEQ/L (3.5-5.1); SODIUM LEVEL 136 MEQ/L (136-145); TOTAL PROTEIN 5.3 GM/DL (6.4-8.2)
[2020-01-01 16:14] LABS: HEMATOCRIT 37.7 % (42.0-52.0); HEMOGLOBIN 12.3 g/dl (13.5-17.5); MEAN CORPUSCULAR HEMOGLOBIN 32.1 pg (27.0-33.0); MEAN CORPUSCULAR HGB CONC 32.6 g/dl (32.0-36.5); MEAN CORPUSCULAR VOLUME 98.4 fl (80.0-96.0); PLATELET COUNT, AUTOMATED 130 10^3/uL (150-450); RED BLOOD COUNT 3.83 10^6/uL (4.30-6.10); WHITE BLOOD COUNT 9.1 10^3/uL (4.0-10.0)
--- NOTE | 2020-01-17 13:11 | CR ---
DATE OF CONSULTATION: 12/29/2019 REASON FOR CONSULTATION: Percutaneous endoscopic gastrostomy (PEG) tube irritation with abdominal cellulitis. HISTORY OF PRESENT ILLNESS: Mr. 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 The patient does not eat or drink, he only is fed through his G tube. He presented on 12/20/2019 with acute respiratory failure. He was in the intensive care unit (ICU). He was treated for chronic obstructive pulmonary disease (COPD) exacerbation. His white count on admission was 14,000, this has improved. He was treated with antibiotic including ceftriaxone, Zithromax. On 12/26/2019, he was noted to have increased discharge around his G tube and therefore clindamycin was started empirically through his G tube, 300 mg three times a day. He is afebrile and denies any pain around the G tube, he states there is always some redness and irritation. PAST MEDICAL HISTORY: COPD with chronic respiratory failure on chronic oxygen at 2 liters nasal cannula, which he is at baseline now, history of pulmonary embolism, hypothyroidism, anxiety, coronary artery disease status post myocardial infarction (ID) in 2018, dyslipidemia, chronic anemia, history of Lyme disease, osteoarthritis. PAST SURGICAL HISTORY: Hiatal hernia repair, right hand surgery, G tube placement. SOCIAL HISTORY: He quit smoking. Does not drink or use drugs. FAMILY HISTORY: Lung cancer, throat cancer, cervical cancer. PHYSICAL EXAMINATION: He is a frail gentleman, no acute distress. Heart: Normal S1, S2. No murmurs appreciated. Lungs: Diminished breath sounds, but clear. No wheezes, rales, or rhonchi. Abdomen: G tube in place with mild surrounding erythema around the border of the G tube, may be a diameter of 5 cm x 3 cm with minimal purulent discharge. Abdomen soft, nontender. No hepatosplenomegaly. Back: No costovertebral angle (CVA) or lumbosacral tenderness. Extremities: +1 pitting edema. LABORATORY DATA: White count 7.3, hemoglobin 12, hematocrit 37.1, platelets 142, 75% neutrophils, 10% leukocytes, 11% monocytes. Sodium 138, potassium 4.1, chloride 101, bicarbonate 38, BUN 13, creatinine 0.79, glucose 126, calcium 8.5, phosphorous 3.5, magnesium 2.2, AST 33, ALT 56, alkaline phosphatase 88, total protein 5.4. Culture from the G tube site had Klebsiella oxytoca, extended-spectrum beta lactamase (ESBL) sensitive to Bactrim, and Escherichia (E) faecalis heavy growth sensitive to amoxicillin and vancomycin. ALLERGIES: LATEX. MEDICATIONS: - Lipitor 40 mg by mouth daily - pantoprazole 40 mg IV daily - prednisone 40 mg daily - levothyroxine 100 mcg daily - clindamycin 300 mg by mouth every 8 hours - Eliquis 5 mg G tube twice a day - Neutra-Phos one packet twice a day - probiotics one tablet G tube twice a day - albuterol Atrovent nebulizers - dextrose as directed as needed - oxycodone every 6 hours as needed - MiraLax one packet daily PLAN: Discontinue clindamycin. Treat topically around the gastrostomy tube with gentamicin twice a day. Without white count or a fever, no pain, I would not consider that an abdominal wall cellulitis. Patient is colonized with pathogens and will just treat with topical gentamicin. MTDD
--- NOTE | 2020-01-26 14:33 | ECGEPIP ---
SINUS RHYTHM WITH MARKED RHYTHM IRREGULARITY, POSSIBLE NON-CONDUCTED PAC, SA BLOCK , AV BLOCK, OR SINUS PAUSE ABNORMAL RHYTHM ECG DELAYED R PROGRESSION SEE SCANNED DOWNTIME REPORT MTDD
--- NOTE | 2020-01-31 09:33 | REP ---
KUB: SINGLE VIEW HISTORY: Constipation and nausea. COMPARISON: 07/15/17 FINDINGS: A feeding tube is noted in the left upper quadrant consistent with a gastrostomy tube. The bowel gas pattern is normal. There is some air and stool in a nondilated colon. No small bowel dilation is seen. The psoas margins and flank stripes are intact. Vascular calcification is noted. IMPRESSION: Gastrostomy tube noted in the left upper quadrant. Normal bowel gas pattern. MTDD
[2020-02-04 07:47] LABS: BASO % 0.4 % (0.0-1.0); EOS # 0.1 10^3/uL (0.0-0.5); EOS % 0.9 % (0.0-3.0); HEMATOCRIT 45.7 % (42.0-52.0); LYMPH # 0.8 10^3/uL (1.5-5.0); MEAN CORPUSCULAR HGB CONC 30.6 g/dl (32.0-36.5); MEAN CORPUSCULAR VOLUME 104.6 fl (80.0-96.0); MONO # 1.1 10^3/uL (0.0-0.8); MONO % 13.3 % (0.0-5.0); NEUTROPHILS % 74.9 % (36.0-66.0); PLATELET COUNT, AUTOMATED 159 10^3/uL (150-450); RED BLOOD COUNT 4.37 10^6/uL (4.30-6.10)
[2020-02-12 01:01] LABS: HEMATOCRIT 37.8 % (42.0-52.0); HEMOGLOBIN 11.8 g/dl (13.5-17.5); MEAN CORPUSCULAR HEMOGLOBIN 32.7 pg (27.0-33.0); MEAN CORPUSCULAR HGB CONC 31.2 g/dl (32.0-36.5); MEAN CORPUSCULAR VOLUME 104.7 fl (80.0-96.0); PLATELET COUNT, AUTOMATED 114 10^3/uL (150-450); RED BLOOD COUNT 3.61 10^6/uL (4.30-6.10); WHITE BLOOD COUNT 5.4 10^3/uL (4.0-10.0)
[2020-02-12 16:42] LABS: HEMATOCRIT 38.3 % (42.0-52.0); HEMOGLOBIN 12.4 g/dl (13.5-17.5); MEAN CORPUSCULAR HEMOGLOBIN 32.2 pg (27.0-33.0); MEAN CORPUSCULAR HGB CONC 32.4 g/dl (32.0-36.5); MEAN CORPUSCULAR VOLUME 99.5 fl (80.0-96.0); PLATELET COUNT, AUTOMATED 122 10^3/uL (150-450); RED BLOOD COUNT 3.85 10^6/uL (4.30-6.10); WHITE BLOOD COUNT 8.3 10^3/uL (4.0-10.0)
[2020-02-18 19:26] LABS: HEMATOCRIT 34.7 % (42.0-52.0); HEMOGLOBIN 11.4 g/dl (13.5-17.5); MEAN CORPUSCULAR HEMOGLOBIN 32.6 pg (27.0-33.0); MEAN CORPUSCULAR HGB CONC 32.9 g/dl (32.0-36.5); MEAN CORPUSCULAR VOLUME 99.1 fl (80.0-96.0); PLATELET COUNT, AUTOMATED 127 10^3/uL (150-450)
[2020-02-19 18:14] LABS: HEMATOCRIT 38.5 % (42.0-52.0); HEMOGLOBIN 12.5 g/dl (13.5-17.5); MEAN CORPUSCULAR HEMOGLOBIN 31.8 pg (27.0-33.0); MEAN CORPUSCULAR HGB CONC 32.5 g/dl (32.0-36.5); PLATELET COUNT, AUTOMATED 138 10^3/uL (150-450); RED BLOOD COUNT 3.93 10^6/uL (4.30-6.10); WHITE BLOOD COUNT 12.8 10^3/uL (4.0-10.0)
[2020-03-06 10:00] LABS: RED BLOOD COUNT 3.65 10^6/uL (4.30-6.10); WHITE BLOOD COUNT 7.1 10^3/uL (4.0-10.0)
[2020-03-06 10:01] LABS: HEMATOCRIT 36.4 % (42.0-52.0); HEMOGLOBIN 11.7 g/dl (13.5-17.5); MEAN CORPUSCULAR HEMOGLOBIN 32.1 pg (27.0-33.0); MEAN CORPUSCULAR HGB CONC 32.1 g/dl (32.0-36.5); MEAN CORPUSCULAR VOLUME 99.7 fl (80.0-96.0); PLATELET COUNT, AUTOMATED 128 10^3/uL (150-450)
[2020-03-09 14:01] LABS: ALBUMIN 3.2 GM/DL (3.2-5.2); ALT/SGPT 44 U/L (12-78); BILIRUBIN,DIRECT 0.2 MG/DL (0.0-0.2); BILIRUBIN,TOTAL 0.5 MG/DL (0.2-1.0); BLOOD UREA NITROGEN 19 MG/DL (7-18); C REACTIVE PROTEIN QUANTITATIV 5.11 MG/DL (0.00-0.30); CALCIUM LEVEL 8.8 MG/DL (8.8-10.2); CARBON DIOXIDE LEVEL 39 MEQ/L (21-32); CHLORIDE LEVEL 97 MEQ/L (98-107); CK-MB VALUE MASS < 1.0 NG/ML (<3.6); CPK CREATINE PHOSPHOKINASE 184 U/L (39-308); CREATININE FOR GFR 0.91 MG/DL (0.70-1.30); GLOMERULAR FILTRATION RATE > 60.0 (>49); GLUCOSE, FASTING 154 MG/DL (70-100); MB/CK RELATIVE INDEX 0.54 (< OR =4); POTASSIUM SERUM 5.1 MEQ/L (3.5-5.1); SODIUM LEVEL 138 MEQ/L (136-145); TOTAL PROTEIN 7.1 GM/DL (6.4-8.2); TROPONIN I < 0.02 NG/ML (< 0.10)
[2020-03-11 09:21] LABS: ALBUMIN 2.4 GM/DL (3.2-5.2); ALT/SGPT 53 U/L (12-78); BILIRUBIN,TOTAL 0.2 MG/DL (0.2-1.0); BLOOD UREA NITROGEN 17 MG/DL (7-18); CALCIUM LEVEL 7.8 MG/DL (8.8-10.2); CARBON DIOXIDE LEVEL 39 MEQ/L (21-32); CHLORIDE LEVEL 99 MEQ/L (98-107); CREATININE FOR GFR 0.82 MG/DL (0.70-1.30); GLOMERULAR FILTRATION RATE > 60.0 (>49); GLUCOSE, FASTING 123 MG/DL (70-100); HEMOGLOBIN A1c 5.9 %; SODIUM LEVEL 138 MEQ/L (136-145); TOTAL PROTEIN 5.2 GM/DL (6.4-8.2)
[2020-03-14 11:53] LABS: BLOOD UREA NITROGEN 16 MG/DL (7-18); CALCIUM LEVEL 7.9 MG/DL (8.8-10.2); CARBON DIOXIDE LEVEL 38 MEQ/L (21-32); CHLORIDE LEVEL 104 MEQ/L (98-107); CREATININE FOR GFR 0.61 MG/DL (0.70-1.30); GLOMERULAR FILTRATION RATE > 60.0 (>49); GLUCOSE, FASTING 96 MG/DL (70-100); NT-PRO BNP 290 PG/ML (<125); POTASSIUM SERUM 4.7 MEQ/L (3.5-5.1); SODIUM LEVEL 140 MEQ/L (136-145)
[2020-03-14 11:56] LABS: FOLATE 13.2 NG/ML (>5.4); PERCENT SATURATION 33.2 % (19.7-50.0); TROPONIN I 0.02 NG/ML (< 0.10)
[2020-03-14 12:41] LABS: ABG MODE OF VENT RA
[2020-03-14 12:42] LABS: ABG BASE EXCESS 7.3 (-2.0-2.0); ABG HCO3 36.1 MEQ/L (22.0-26.0); ABG O2 SATURATION 94.8 % (95.0-99.0); ABG PARTIAL PRESSURE CO2 74.3 mmHg (35.0-45.0); ABG PARTIAL PRESSURE O2 74.2 mmHg (75.0-100.0); ABG TOTAL CO2 38.3 MEQ/L (23.0-31.0); ABG pH (ARTERIAL) 7.304 UNITS (7.350-7.450)
[2020-03-14 12:44] LABS: ABG HCO3 34.9 MEQ/L (22.0-26.0); ABG MODE OF VENT RA; ABG PARTIAL PRESSURE CO2 71.4 mmHg (35.0-45.0); ABG PARTIAL PRESSURE O2 80.8 mmHg (75.0-100.0); ABG TOTAL CO2 37.1 MEQ/L (23.0-31.0); ABG pH (ARTERIAL) 7.307 UNITS (7.350-7.450)
[2020-03-14 12:45] LABS: ABG BASE EXCESS 6.3 (-2.0-2.0); ABG O2 SATURATION 95.7 % (95.0-99.0); ABG STANDARD HCO3 30.2 MEQ/L (22.0-26.0)
[2020-03-14 12:46] LABS: ABG MODE OF VENT RA; ABG pH (ARTERIAL) 7.302 UNITS (7.350-7.450)
[2020-03-14 12:47] LABS: ABG BASE EXCESS 6.7 (-2.0-2.0); ABG HCO3 35.4 MEQ/L (22.0-26.0); ABG O2 SATURATION 98.4 % (95.0-99.0); ABG PARTIAL PRESSURE CO2 73.2 mmHg (35.0-45.0); ABG PARTIAL PRESSURE O2 116.7 mmHg (75.0-100.0); ABG STANDARD HCO3 30.5 MEQ/L (22.0-26.0); ABG TOTAL CO2 37.6 MEQ/L (23.0-31.0)
[2020-03-14 21:57] LABS: ALBUMIN 2.4 GM/DL (3.2-5.2); ALT/SGPT 32 U/L (12-78); BILIRUBIN,TOTAL 0.4 MG/DL (0.2-1.0); BLOOD UREA NITROGEN 19 MG/DL (7-18); CALCIUM LEVEL 7.9 MG/DL (8.8-10.2); CARBON DIOXIDE LEVEL 36 MEQ/L (21-32); CHLORIDE LEVEL 99 MEQ/L (98-107); CREATININE FOR GFR 0.78 MG/DL (0.70-1.30); GLOMERULAR FILTRATION RATE > 60.0 (>49); GLUCOSE, FASTING 281 MG/DL (70-100); POTASSIUM SERUM 4.5 MEQ/L (3.5-5.1); SODIUM LEVEL 137 MEQ/L (136-145); TOTAL PROTEIN 5.6 GM/DL (6.4-8.2)
[2020-03-14 22:21] LABS: ABG BASE EXCESS 4.5 (-2.0-2.0); ABG HCO3 31.1 MEQ/L (22.0-26.0); ABG MODE OF VENT RA; ABG O2 SATURATION 97.1 % (95.0-99.0); ABG PARTIAL PRESSURE CO2 55.6 mmHg (35.0-45.0); ABG PARTIAL PRESSURE O2 85.9 mmHg (75.0-100.0); ABG STANDARD HCO3 28.5 MEQ/L (22.0-26.0); ABG TOTAL CO2 32.8 MEQ/L (23.0-31.0); ABG pH (ARTERIAL) 7.366 UNITS (7.350-7.450)
[2020-03-18 05:27] LABS: ALBUMIN 2.4 GM/DL (3.2-5.2); ALT/SGPT 33 U/L (12-78); BILIRUBIN,TOTAL 0.2 MG/DL (0.2-1.0); BLOOD UREA NITROGEN 20 MG/DL (7-18); CALCIUM LEVEL 8.1 MG/DL (8.8-10.2); CARBON DIOXIDE LEVEL 37 MEQ/L (21-32); CHLORIDE LEVEL 99 MEQ/L (98-107); CREATININE FOR GFR 0.74 MG/DL (0.70-1.30); GLOMERULAR FILTRATION RATE > 60.0 (>49); GLUCOSE, FASTING 174 MG/DL (70-100); POTASSIUM SERUM 4.7 MEQ/L (3.5-5.1); SODIUM LEVEL 136 MEQ/L (136-145); TOTAL PROTEIN 5.3 GM/DL (6.4-8.2)
[2020-03-18 06:54] LABS: ABG BASE EXCESS 9.5 (-2.0-2.0); ABG HCO3 35.6 MEQ/L (22.0-26.0); ABG MODE OF VENT RA; ABG PARTIAL PRESSURE CO2 55.1 mmHg (35.0-45.0); ABG PARTIAL PRESSURE O2 101.7 mmHg (75.0-100.0); ABG STANDARD HCO3 33.3 MEQ/L (22.0-26.0); ABG TOTAL CO2 37.3 MEQ/L (23.0-31.0); ABG pH (ARTERIAL) 7.428 UNITS (7.350-7.450)
[2020-03-18 08:11] LABS: ALBUMIN 2.4 GM/DL (3.2-5.2); ALT/SGPT 53 U/L (12-78); BILIRUBIN,TOTAL 0.3 MG/DL (0.2-1.0); BLOOD UREA NITROGEN 16 MG/DL (7-18); CALCIUM LEVEL 7.9 MG/DL (8.8-10.2); CARBON DIOXIDE LEVEL 37 MEQ/L (21-32); CHLORIDE LEVEL 97 MEQ/L (98-107); CREATININE FOR GFR 0.75 MG/DL (0.70-1.30); GLOMERULAR FILTRATION RATE > 60.0 (>49); GLUCOSE, FASTING 199 MG/DL (70-100); POTASSIUM SERUM 4.6 MEQ/L (3.5-5.1); SODIUM LEVEL 134 MEQ/L (136-145); TOTAL PROTEIN 5.4 GM/DL (6.4-8.2)
[2020-03-18 11:12] LABS: ALBUMIN 2.7 GM/DL (3.2-5.2); ALT/SGPT 48 U/L (12-78); BILIRUBIN,TOTAL 0.3 MG/DL (0.2-1.0); BLOOD UREA NITROGEN 15 MG/DL (7-18); CALCIUM LEVEL 8.1 MG/DL (8.8-10.2); CARBON DIOXIDE LEVEL 37 MEQ/L (21-32); CHLORIDE LEVEL 97 MEQ/L (98-107); CHOLESTEROL LEVEL 109 MG/DL (<200); CHOLESTEROL RISK RATIO 1.946 (<5); CREATININE FOR GFR 0.75 MG/DL (0.70-1.30); GLOMERULAR FILTRATION RATE > 60.0 (>49); GLUCOSE, FASTING 201 MG/DL (70-100); HDL CHOLESTEROL 56 MG/DL (>40); LDL CHOLESTEROL 43 MG/DL (<100); NON-HDL-C 53 MG/DL; POTASSIUM SERUM 4.4 MEQ/L (3.5-5.1); SODIUM LEVEL 135 MEQ/L (136-145); TOTAL PROTEIN 5.9 GM/DL (6.4-8.2); TRIGLYCERIDES LEVEL 48 MG/DL (<150)
== END 2019-12-30 17:00 | disposition home or self-care (01) | DRG 189 ==
LOC: M ED 11:00 → M MSPAV 12-21 03:25
PROVIDERS: ADMIT Internal Medicine; ATTEND Family Medicine
DX: J96.02 Acute respiratory failure with hypercapnia (principal); J69.0 Pneumonitis due to inhalation of food and vomit; J44.1 Chronic obstructive pulmonary disease with (acute) exacerbation; K94.22 Gastrostomy infection; I25.10 Atherosclerotic heart disease of native coronary artery without angina pectoris; C09.9 Malignant neoplasm of tonsil, unspecified; K59.00 Constipation, unspecified; D64.9 Anemia, unspecified; D69.6 Thrombocytopenia, unspecified; Z79.01 Long term (current) use of anticoagulants; Z86.718 Personal history of other venous thrombosis and embolism; K22.2 Esophageal obstruction; Z91.040 Latex allergy status; Z79.899 Other long term (current) drug therapy; Z86.711 Personal history of pulmonary embolism; E03.9 Hypothyroidism, unspecified; F41.9 Anxiety disorder, unspecified; I25.2 Old myocardial infarction; E78.5 Hyperlipidemia, unspecified; M19.90 Unspecified osteoarthritis, unspecified site; Z87.891 Personal history of nicotine dependence

== ENCOUNTER 2020-02-23 11:25 | Emergency (ER) | payer MEDICARE, MEDICAID ==
[~2020-02-23 11:25] MED LIST changes: +ADVA115A INH; +ESCI10TA2 PO; +GENT1OI TOP; +MIRA3350 PO; +VENTAER INH
[2020-02-23 12:00] LABS: BASO # 0.1 10^3/uL (0.0-0.2); BASO % 0.5 % (0.0-1.0); EOS # 0.2 10^3/uL (0.0-0.5); EOS % 1.6 % (0.0-3.0); HEMATOCRIT 42.5 % (42.0-52.0); LYMPH # 0.7 10^3/uL (1.5-5.0); LYMPH % 6.8 % (24.0-44.0); MEAN CORPUSCULAR HEMOGLOBIN 31.9 pg (27.0-33.0); MEAN CORPUSCULAR HGB CONC 30.6 g/dl (32.0-36.5); MEAN CORPUSCULAR VOLUME 104.2 fl (80.0-96.0); MONO # 1.3 10^3/uL (0.0-0.8); NEUTROPHILS # 7.9 10^3/uL (1.5-8.5); NEUTROPHILS % 77.8 % (36.0-66.0); PLATELET COUNT, AUTOMATED 139 10^3/uL (150-450); RED BLOOD COUNT 4.08 10^6/uL (4.30-6.10); WHITE BLOOD COUNT 10.2 10^3/uL (4.0-10.0)
[2020-02-23 12:10] LABS: INR 1.11; PROTHROMBIN TIME 14.6 SECONDS (12.5-14.3)
[2020-02-23] MEDS ORDERED: COMBIVENT RESPIMAT 100-20MCG INHALER 4GM INH ONE (12:15)
[2020-02-23 12:30] LABS: ALT/SGPT 47 U/L (12-78); BILIRUBIN,DIRECT 0.2 MG/DL (0.0-0.2); BILIRUBIN,TOTAL 0.4 MG/DL (0.2-1.0); BLOOD UREA NITROGEN 19 MG/DL (7-18); CALCIUM LEVEL 8.7 MG/DL (8.8-10.2); CARBON DIOXIDE LEVEL 40 MEQ/L (21-32); CHLORIDE LEVEL 99 MEQ/L (98-107); CK-MB VALUE MASS < 1.0 NG/ML (<3.6); CPK CREATINE PHOSPHOKINASE 68 U/L (39-308); CREATININE FOR GFR 0.84 MG/DL (0.70-1.30); GLOMERULAR FILTRATION RATE > 60.0 (>49); GLUCOSE, FASTING 121 MG/DL (70-100); MB/CK RELATIVE INDEX 1.47 (< OR =4); POTASSIUM SERUM 4.5 MEQ/L (3.5-5.1); SODIUM LEVEL 141 MEQ/L (136-145); THYROXINE (T4) 8.3 UG/DL (4.5-12.0); TOTAL PROTEIN 6.5 GM/DL (6.4-8.2); TROPONIN I < 0.02 NG/ML (< 0.10)
[2020-02-23] MEDS ORDERED: methylPREDNISolone 125MG 2ML VIAL IV ONE (12:30)
--- NOTE | 2020-02-23 14:26 | REPVR ---
PROCEDURE INFORMATION: Exam: XR Chest, 2 Views Exam date and time: 02/23/2020 12:12 PM Age: 69 years old Clinical indication: Dyspnea; Additional info: SOB TECHNIQUE: Imaging protocol: XR of the chest Views: 2 views. COMPARISON: CR Chest, 1 view 12/20/2019 10:01 PM (report not provided) FINDINGS: Lungs: There is mild bibasilar atelectasis. The lungs are otherwise clear. Pleural space: Unremarkable. No pleural effusion. No pneumothorax. Heart/Mediastinum: The cardiomediastinal silhouette is fairly stable in appearance. Diaphragm: The right hemidiaphragm is again elevated. Bones/joints: Degenerative changes again involve the spine. IMPRESSION: No evidence for acute pulmonary disease. Electronically signed by: Tiburcio Hudson On 02/23/2020 14:26:44 PM
[2020-02-23] MEDS ORDERED: IPRATROPIUM 0.5MG/ALBUTEROL 2.5MG INH SOL UD 3ML (DUONEB) NEB ONE (15:00)
[2020-02-23 17:01] VITALS: O2SAT 90
[2020-02-23] MEDS ORDERED: oxyCODONE 5MG TAB PEG ONE (17:15)
[2020-02-23] MEDS ORDERED: PRED5SOL10 PEG (17:26)
[2020-02-23 18:33] VITALS: BP 130/62
--- NOTE | 2020-02-23 19:36 | ECGEPIP ---
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
== END 2020-02-23 18:37 | disposition home or self-care (01) ==
LOC: M ED 11:25 → EDBD 11:25 → M ED 18:37
DX: J44.1 Chronic obstructive pulmonary disease with (acute) exacerbation (principal); I25.10 Atherosclerotic heart disease of native coronary artery without angina pectoris; D64.9 Anemia, unspecified; G47.30 Sleep apnea, unspecified; C09.9 Malignant neoplasm of tonsil, unspecified; K22.2 Esophageal obstruction; Z86.711 Personal history of pulmonary embolism; E03.9 Hypothyroidism, unspecified; F41.1 Generalized anxiety disorder; Z87.891 Personal history of nicotine dependence; Z91.040 Latex allergy status; Z79.01 Long term (current) use of anticoagulants; Z79.899 Other long term (current) drug therapy
CPT/HCPCS: 71045; 71046; 80048; 80076; 82550; 82553; 83605; 84436; 84443; 84484; 85025; 85610; 87040; 87486; 87581; 87633; 87798; 93005; 93041; 94640; 94760; 96374; 99285; J2930

== ENCOUNTER 2020-03-12 15:32 | Inpatient (IN) | payer MEDICARE, MEDICAID ==
[~2020-03-12] VITALS: Ht 170.2 cm; Wt 86.0 kg
[~2020-03-12 15:32] MED LIST changes: +PRED5SOL10 PEG
[2020-03-12] MEDS ORDERED: methylPREDNISolone 125MG 2ML VIAL IV ONE (16:00)
[2020-03-12] MEDS ORDERED: IPRATROPIUM 0.5MG/ALBUTEROL 2.5MG INH SOL UD 3ML (DUONEB) NEB ONE (16:00)
[2020-03-12] MEDS ORDERED: ALBUTEROL SULFATE 2.5 MG/0.5 ML INH NEB SOLN INH ONE (16:00)
[2020-03-12] MEDS ORDERED: ACETAMINOPHEN 325 MG/10.15 ML UDC PO ONE (16:15)
--- NOTE | 2020-03-12 16:21 | REP ---
INDICATION: DYSPNEA/COUGH. COMPARISON: 02/23/2020. TECHNIQUE: SINGLE PORTABLE AP VIEW OF THE CHEST WAS PERFORMED. FINDINGS: Once again there is moderate elevation of the right hemidiaphragm. There is mild patchy atelectasis or infiltrate in the lung bases superimposed on chronic fibrotic change. Heart mediastinum are unchanged. There is calcification of the thoracic aorta. There are mild degenerative changes of the spine. IMPRESSION: Chronic elevation of the right diaphragm. Mild bibasilar atelectasis/infiltrates superimposed on chronic fibrotic change. <Electronically signed by Sunny Whitlock > 03/12/20 [id number]
[2020-03-12] MEDS ORDERED: ADVA115A INH (16:51)
[2020-03-12] MEDS ORDERED: GENT1OI TOP (16:51)
[2020-03-12] MEDS ORDERED: ALBU83IN NEB (16:51)
[2020-03-12 17:06] LABS: BASO % 0.3 % (0.0-1.0); EOS % 0.1 % (0.0-3.0); HEMATOCRIT 40.3 % (42.0-52.0); HEMOGLOBIN 12.3 g/dl (13.5-17.5); LYMPH # 0.1 10^3/uL (1.5-5.0); LYMPH % 1.3 % (24.0-44.0); MEAN CORPUSCULAR HEMOGLOBIN 31.5 pg (27.0-33.0); MEAN CORPUSCULAR HGB CONC 30.5 g/dl (32.0-36.5); MEAN CORPUSCULAR VOLUME 103.3 fl (80.0-96.0); MONO # 0.5 10^3/uL (0.0-0.8); NEUTROPHILS # 8.6 10^3/uL (1.5-8.5); NEUTROPHILS % 92.9 % (36.0-66.0); PLATELET COUNT, AUTOMATED 145 10^3/uL (150-450); WHITE BLOOD COUNT 9.3 10^3/uL (4.0-10.0)
[2020-03-12 17:15] LABS: INR 1.14; PROTHROMBIN TIME 14.9 SECONDS (12.5-14.3)
[2020-03-12] MEDS ORDERED: oxyCODONE 5MG TAB GT ONE (17:15)
[2020-03-12] MEDS ORDERED: cefTRIAXone SOD 2 GM in D5W MINI-BAG PLUS 50 ML IV ONE (17:30)
[2020-03-12] MEDS ORDERED: LevoFLOXacin IV 750 MG in IV 1 EA IV ONE (17:30)
[2020-03-12] MEDS ORDERED: NS 1,000 ML IV SCH (18:00)
[2020-03-12 18:07] LABS: ALBUMIN 2.4 GM/DL (3.2-5.2); BILIRUBIN,DIRECT 0.2 MG/DL (0.0-0.2); BILIRUBIN,TOTAL 0.4 MG/DL (0.2-1.0); THYROID STIMULATING HORMONE 1.19 uIU/ML (0.358-3.740); THYROXINE (T4) 8.1 UG/DL (4.5-12.0); TOTAL PROTEIN 6.1 GM/DL (6.4-8.2)
[2020-03-12] MEDS ORDERED: ISOVUE-370 76% 100ML VIAL As Ordered ONE (18:40)
[2020-03-12] MEDS ORDERED: ceFAZolin SOD 2 GM in IV 1 EA IV SCH (19:00)
[2020-03-12] MEDS ORDERED: ALBUTEROL SULFATE 2.5 MG/0.5 ML INH NEB SOLN NEB PRN (19:00)
[2020-03-12] MEDS ORDERED: IPRATROPIUM 0.5MG/ALBUTEROL 2.5MG INH SOL UD 3ML (DUONEB) NEB PRN (19:45)
--- NOTE | 2020-03-12 19:47 | ECGEPIP ---
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
[2020-03-12 19:48] VITALS: BP 98/61
[2020-03-12] MEDS: IPRATROPIUM 0.5MG/ALBUTEROL 2.5MG INH SOL UD 3ML (DUONEB) NEB SCH ×2 (20:00→23:24)
--- NOTE | 2020-03-12 20:23 | REPVR ---
PROCEDURE INFORMATION: Exam: CT Angiography Chest With Contrast Exam date and time: 03/12/2020 7:27 PM Age: 69 years old Clinical indication: Dyspnea and tachycardia. Evaluate for PE. Here with pneumonia. TECHNIQUE: Imaging protocol: Computed tomographic angiography of the chest with intravenous contrast. 3D rendering (Not supervised by radiologist): MIP and/or 3D reconstructed images were created by the technologist. Radiation optimization: All CT scans at this facility use at least one of these dose optimization techniques: automated exposure control; mA and/or kV adjustment per patient size (includes targeted exams where dose is matched to clinical indication); or iterative reconstruction. Contrast material: ISOVUE 370; Contrast volume: 75 ml; Contrast route: INTRAVENOUS (IV); COMPARISON: 1. CT ANGIO CHEST 11/14/2019 8:[address] ANGIO CHEST 06/29/2019 1:37:48 PM FINDINGS: Tubes, catheters and devices: There is a percutaneous gastrostomy tube entering into the distal body of the stomach in appropriate position. Pulmonary arteries: No pulmonary embolism. Aorta: The thoracic aorta is intact and patent. There is no thoracic aortic aneurysm, pseudoaneurysm, penetrating atherosclerotic ulcer, intramural hematoma, or dissection. There are extensive atherosclerotic calcifications. Great vessels off aortic arch: The brachiocephalic artery, imaged proximal portions of the common carotid arteries, imaged proximal portions of the vertebral arteries, and subclavian arteries are intact. No stenosis or occlusion of these vessels is noted. Tracheobronchial tree: Intact and patent. Lungs: There is chronic atelectasis or consolidation involving the right middle lobe and both lower lobes, which was also present in the prior CTA chest on 11/14/2019 and 06/29/2019. There are 2 small calcified granulomas in the right lower lobe, which are unchanged compared to the prior CTA chest on 11/14/2019 (image 95 of the axial series 401). There are centrilobular emphysematous changes, predominantly in the upper lobes, which are similar in appearance compared to the prior CTA chest on 11/14/2019. Pleural space: Normal. No pneumothorax or pleural effusion. Heart: No cardiomegaly or pericardial effusion. The ratio of the diameter of the right ventricle to the diameter of the left ventricle measures less than 1, which is within normal limits and there is no CT evidence for a right ventricular strain. There are coronary artery calcifications. Mediastinal space: No mediastinal mass, fluid collection, or pneumomediastinum. Lymph nodes: No enlarged lymph nodes. Diaphragm: The right hemidiaphragm is chronically elevated, which is similar in appearance compared to the prior CTA chest on 11/14/2019 and 06/29/2019. Liver: Unremarkable. No liver lesion is identified. The contour of the liver is smooth. No hepatomegaly is noted. Gallbladder and bile ducts: No calcified gallstones are noted. No gallbladder wall thickening, pericholecystic fluid, or pericholecystic inflammatory changes are identified. No dilation of the bile ducts is noted. No calcified stones are seen in the common bile duct. Spleen: Normal. No splenomegaly is noted. Adrenals: Normal. No adrenal mass is noted. Kidneys and ureters: There is a 1 cm benign-appearing cyst in the midpole of the left kidney, for which further follow-up is not necessary. The left kidney was not fully imaged. The right kidney is unremarkable. No hydronephrosis is noted. Bones/joints: There is no acute fracture. There are chronic mild anterior wedge compression fractures of T1 and L1, which are stable compared to the prior CTA chest on 11/14/2019. There are endplate spurs in the thoracic spine. No suspicious osteolytic or osteoblastic lesion is noted. Soft tissues: There is edema in the subcutaneous tissues in both flanks. IMPRESSION: 1. No pulmonary embolism. 2. Chronic atelectasis or consolidation involving the right middle lobe and both lower lobes, which was also present in the prior CTA chest on 11/14/2019 and 06/29/2019. 3. Centrilobular emphysematous changes, predominantly in the upper lobes, which are similar in appearance compared to the prior CTA chest on 11/14/2019. COMMENTS: Consistent with the [employer]'s Incidental Findings Committee white paper (J Am Jean Radiol 2018): Any incidental renal lesion less than 1 cm or classified as too small to characterize, or any incidental cystic renal lesion characterized as simple-appearing, is likely benign. No follow-up imaging is recommended for these lesions per consensus recommendations based on imaging criteria. Electronically signed by: Boo Handy On 03/12/2020 20:23:22 PM
--- NOTE | 2020-03-12 21:02 | HPEPDOC ---
General Date of Admission Mar 12, 2020 at 17:50 Date of Service: Mar 12, 2020 Chief Complaint The patient is a 69-year-old male admitted with a reason for visit of Pneumonia. Source: Patient History of Present Illness Mr. 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 About 2 days ago, he started to have difficulty breathing. Denies a cough, but he's been having fevers. While in the ED, his temperature of 102.1. He denies any sick contacts or recent travel. His main complaint today was dyspnea is chronically on 2 L of oxygen at home. While he's been in the ED, he required 3 L of oxygen. Otherwise, looking back at his last admission, he had ESBL colonization of the skin around his PEG tube. Denies any abdominal pain did not have any abdominal tenderness. The skin around the PEG tube appears eryth ematous and warm, but not tender. While in the ED, he received Solu-Medrol, ceftriaxone, and levofloxacin. Home Medications Scheduled Apixaban (Eliquis) 5 Mg Tablet, 5 MG FT BID, (Reported) Atorvastatin Calcium (Atorvastatin Calcium) 40 Mg Tablet, 40 MG FT QHS, (Reported) Fluticasone Propion/Salmeterol (Advair Hfa 115-21 Mcg Inhaler) 12 Gm Hfa.aer.ad, 2 PUFF INH BID, (Reported) Gentamicin Sulfate (Gentamicin Sulfate) 15 Gm Oint...g., 1 APPLIC TOP BID, (Reported) FOR ANY RASH OR REDNESS AROUND FT Levothyroxine Sodium (Levothyroxine Sodium) 100 Mcg Tab, 100 MCG FT DAILY, (Reported) Scheduled PRN Albuterol Sulf (Albuterol Sulfate) 2.5 Mg/3 Ml Vial.neb, 1 VIAL NEB Q4H PRN for SOB/WHEEZING, (Reported) Oxycodone Hcl (Oxycodone HCl) 15 Mg Tablet, 30 MG FT Q6H PRN for PAIN, (Reported) Allergies Coded Allergies: latex (Verified Allergy, Intermediate, hives, 02/23/19) Past Medical History Medical History 1. History of Squamous cell carcinoma of the right tonsil status post chemotherapy radiation 2. Esophageal stricture secondary to radiation, status EGD with dilation 3. Dysphagia with PEG tube placement 4. COPD 5. Chronic hypoxic respiratory failure on 2L [place] 6. History of PE 7. Chronic left lower lobe infiltrate 8. Hypothyroidism 9. Anxiety 10. CAD (STEMI 2018) 11. Dyslipidemia. 12. History of Lyme's disease 13. OA 14. Atrial flutter Surgical History 1. Right hand surgery 2. G-tube placement 3. Hiatial hernia repair Family History Both mother and father has history of carcinomatous Social History * Smoker: former Smoker Alcohol: Denies Drugs: denies A-FIB/CHADSVASC A-FIB History Current/History of A-Fib/PAF?: Yes Current PO Anticoag Therapy: Yes Review of Systems Constitutional: Reports: Fever, Malaise Eyes: Denies: Vision change ENT: Denies: Head Aches Skin: Reports: Rash Pulmonary: Reports: Dyspnea; Denies: Cough Cardiovascular: Denies: Chest Pain Gastrointestinal: Denies: Nausea, Abdominal Pain Genitourinary: Denies: Dysuria Hematologic: Reports: Bruising Neurological: Reports: Weakness Physical Examination General Exam: Positive: Alert, Cooperative Eye Exam: Positive: EOMI; Negative: Sclera icteric ENT Exam: Positive: Atraumatic Neck Exam: Negative: Supple (has trouble bending neck) Chest Exam: Positive: Rhonchi; Negative: Clear to auscultation Heart Exam: Positive: Tachycardic, Regular Rhythm Abdomen Exam: Positive: Normal bowel sounds, Soft; Negative: Tenderness Extremity Exam: Positive: Edema Skin Exam: Positive: Rash (around PEG tube), Breakdown (around PEG tube) Neuro Exam: Negative: Normal Speech (difficult to understand speech) Psych Exam: Positive: Mental status NL, Mood NL Vital Signs Vital Signs Date Time Temp Pulse Resp B/P (MAP) Pulse Ox O2 Delivery O2 Flow Rate FiO2 03/12/20 18:34 99.4 03/12/20 18:23 94 24 118/55 (76) 92 Nasal Cannula 3.0 Laboratory Data Labs 24H Laboratory Tests 2 03/12/20 16:36: POC pH (Misc Panel) 7.381, POC Base Excess (Misc Panel) 15.0H, POC Saturated Percent O2 (Misc) 91L, POC pO2 (Misc Panel) 66.0L, POC pCO2 (Misc Panel) 68.0*H, POC HCO3 (Misc Panel) 40.3H, POC Total CO2 (Misc Panel) 42.0H 03/12/20 16:54: POC Total CO2 (Misc Panel) 40.0H, POC Glucose (Misc Panel) 156H, POC Sodium (Misc Panel) 139, POC Potassium (Misc Panel) 4.5, POC Chloride (Misc Panel) 93L, POC Blood Urea Nitrogen (Misc Panel 20, POC Ionized Calcium (Misc Panel) 4.7, POC Lactate (Misc Panel) 1.22, POC Creatinine (Misc Panel) 0.9, POC Hematocrit (Misc Panel) 58.0H 03/12/20 16:55: Immature Granulocyte % (Auto) 0.4, Neutrophils (%) (Auto) 92.9H, Lymphocytes (%) (Auto) 1.3L, Monocytes (%) (Auto) 5.0, Eosinophils (%) (Auto) 0.1, Basophils (%) (Auto) 0.3, Neutrophils # (Auto) 8.6H, Lymphocytes # (Auto) 0.1L, Monocytes # (Auto) 0.5, Eosinophils # (Auto) 0.0, Basophils # (Auto) 0.0, Nucleated Red Blood Cells % (auto) 0.0, Prothrombin Time 14.9H, Prothromb Time International Ratio 1.14, Total Bilirubin 0.4, Direct Bilirubin 0.2, Aspartate Amino Transf (AST/SGOT) 39H, Alanine Aminotransferase (ALT/SGPT) 57, Alkaline Phosphatase 94, LC-Wov-Z-Type Natriuretic Peptide 88, Total Protein 6.1L, Albumin 2.4L, Albumin/Globulin Ratio 0.6, Thyroid Stimulating Hormone (TSH) 1.190, Thyroxine (T4) 8.1 03/12/20 17:01: POC Troponin I (Misc) 0.01 03/12/20 18:30: Procalcitonin 0.10 CBC/BMP Laboratory Tests 03/12/20 16:55 Microbiology Microbiology 03/12/20 Blood Culture, Received Pending 03/12/20 Respiratory Virus Panel (PCR) (TATIANA) - Final, Complete 03/12/20 Blood Culture, Received Pending Assessment/Plan Mr. Araiza is a 69 year old male with history of squamous cell carcinoma of the right tonsil s/p chemoradiation, esophageal stricture 2/2 radiation and s/p EGD with dilatation, dysphagia with PEG tube placement, and COPD with chronic hypoxic respiratory failure on 2L at home who is here for fever and worsening dy spnea. Patient sputum culture from November 2019 demonstrated both Pseudomonas and MSSA. Patient sputum culture from December 2019 demonstrated Corynebacterium species which may be colonization. Due to the Pseudomonas and MSSA, we will put him on levofloxacin and cefazolin. With his history of COPD and dyspnea, he'll be on DuoNeb's and IV steroids. For the ESBL which have been isolated from the wound culture around his PEG tube, we will continue gentamicin. Plan / VTE VTE Prophylaxis Ordered?: Yes Plan Plan 1. Pneumonia Patient reports worsening dyspnea with fever X-ray demonstrates bibasilar infiltrates Patient was started on levofloxacin and ceftriaxone while in the ED Due to his history of pseudomonas and MSSA in his sputum culture, we will continue him on levofloxacin and cefazolin. -Also start probiotic We'll also obtain a CTA as he does also have tachycardia Ordered blood cultures, pro-calcitonin, urinary legionella antigen, urinary strep pneumo antigen, and sputum culture 2. COPD with chronic hypoxic respiratory failure on 2L -Requiring 3L here -Continue Advair -Duonebs q4h and PRN -IV steroids 3. Dysphagia 2/2 esophageal stricture s/p PEG tube -Dietary consultation for tube feeds 4. ESBL colonization around PEG tube -Topical gentamicin 5. Atrial flutter Continue apixaban 6. Hypothyroidism Continue levothyroxine 7. DVT prophylaxis Already on apixaban ADRIANA BAZAN DO Mar 12, 2020 21:02
[2020-03-12] MEDS: ATORVASTATIN 20 MG TAB PEG SCH (21:58)
[2020-03-12] MEDS: APIXABAN 5 MG TAB (ELIQUIS) PEG SCH (21:58)
[2020-03-12] MEDS: GENTAMICIN SULFATE 0.1% OINT 15 GM TOP SCH (23:02)
[2020-03-12] MEDS: oxyCODONE 5MG TAB PEG PRN (23:03)
[2020-03-13] MEDS: LEVOTHYROXINE 100MCG TABLET (0.1MG) PEG SCH (05:36)
[2020-03-13] MEDS: methylPREDNISolone 125MG 2ML VIAL IV SCH ×2 (05:36→17:59)
[2020-03-13] MEDS: oxyCODONE 5MG TAB PEG PRN ×3 (05:37→20:48)
[2020-03-13 06:00] VITALS: BP 113/65
[2020-03-13 06:20] LABS: BASO % 0.1 % (0.0-1.0); HEMATOCRIT 37.8 % (42.0-52.0); HEMOGLOBIN 11.2 g/dl (13.5-17.5); LYMPH # 0.3 10^3/uL (1.5-5.0); LYMPH % 2.9 % (24.0-44.0); MEAN CORPUSCULAR HEMOGLOBIN 30.4 pg (27.0-33.0); MEAN CORPUSCULAR HGB CONC 29.6 g/dl (32.0-36.5); MEAN CORPUSCULAR VOLUME 102.7 fl (80.0-96.0); MONO # 0.2 10^3/uL (0.0-0.8); MONO % 2.6 % (0.0-5.0); NEUTROPHILS # 8.8 10^3/uL (1.5-8.5); NEUTROPHILS % 94.1 % (36.0-66.0); PLATELET COUNT, AUTOMATED 138 10^3/uL (150-450); RED BLOOD COUNT 3.68 10^6/uL (4.30-6.10); WHITE BLOOD COUNT 9.4 10^3/uL (4.0-10.0)
[2020-03-13 06:42] LABS: BLOOD UREA NITROGEN 23 MG/DL (7-18); CALCIUM LEVEL 8.5 MG/DL (8.8-10.2); CARBON DIOXIDE LEVEL 39 MEQ/L (21-32); CHLORIDE LEVEL 97 MEQ/L (98-107); GLOMERULAR FILTRATION RATE > 60.0 (>49); GLUCOSE, FASTING 261 MG/DL (70-100); MAGNESIUM LEVEL 2.3 MG/DL (1.8-2.4); POTASSIUM SERUM 4.7 MEQ/L (3.5-5.1); SODIUM LEVEL 138 MEQ/L (136-145)
[2020-03-13] MEDS: ADVAIR HFA 115/21MCG INHALER INH SCH ×2 (08:00→19:52)
[2020-03-13] MEDS: IPRATROPIUM 0.5MG/ALBUTEROL 2.5MG INH SOL UD 3ML (DUONEB) NEB SCH ×5 (08:24→23:00)
[2020-03-13] MEDS ORDERED: FLUBLOK(EGG FREE)(QUAD)INFLUENZA VACC 0.5ML SYRINGE 18YRS & OLDER IM ONE (09:00)
[2020-03-13] MEDS: APIXABAN 5 MG TAB (ELIQUIS) PEG SCH ×2 (09:39→20:47)
[2020-03-13] MEDS: LACTOBACILLUS ACIDOPHILUS CAP (BACID) PEG SCH (09:39)
[2020-03-13] MEDS: GENTAMICIN SULFATE 0.1% OINT 15 GM TOP SCH ×2 (09:41→20:47)
[2020-03-13] MEDS: GASTROGRAFIN SOLUTION 30ML PO SCH ×2 (12:12→12:56)
[2020-03-13 14:00] VITALS: BP 120/65
--- NOTE | 2020-03-13 14:18 | IPNPDOC ---
Subjective Date Seen The patient was seen on 03/13/20. Subjective Chief Complaint/HPI Mr. 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 Overnight, he was afebrile. Last fever was on 03/12/2020 at 15:53. Overall, he has malaise, but does not know source. Reports dyspnea, but otherwise denies chest pain, dyspnea, or dysuria. Last BM was yesterday. Abdomen looks distended, but no residuals. Objective Physical Examination General Exam: Positive: Alert, Cooperative Eye Exam: Positive: EOMI; Negative: Sclera icteric ENT Exam: Positive: Atraumatic Neck Exam: Negative: Supple (has trouble bending neck) Chest Exam: Positive: Rhonchi; Negative: Clear to auscultation Heart Exam: Positive: Tachycardic, Regular Rhythm Abdomen Exam: Positive: Normal bowel sounds Extremity Exam: Positive: Edema Skin Exam: Positive: Rash (around PEG tube), Breakdown (around PEG tube) Neuro Exam: Negative: Normal Speech (difficult to understand speech) Psych Exam: Positive: Mental status NL, Mood NL Assessment /Plan Assessment Mr. 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 Patient sputum culture from November 2019 demonstrated both Pseudomonas and MSSA. Patient sputum culture from December 2019 demonstrated Corynebacterium species which may be colonization. Due to the Pseudomonas and MSSA, we will put him on levofloxacin and cefazolin. With his history of COPD and dyspnea, he'll be on DuoNeb's and IV steroids. For the ESBL which have been isolated from the wound culture around his PEG tube, we will continue gentamicin. Today, abdomen appeared distended. No abdominal pain and no residual at time of examination. Will order CT abd/pelvis to evaluate. Otherwise, he does not feel well. Pending results from sputum culture. Plan/VTE VTE Prophylaxis Ordered?: Yes Plan 1. Pneumonia Patient reports worsening dyspnea with fever X-ray demonstrates bibasilar infiltrates Patient was started on levofloxacin and ceftriaxone while in the ED Due to his history of pseudomonas and MSSA in his sputum culture, we will continue him on levofloxacin and cefazolin. -Also start probiotic CTA does not demonstrate PE, but there is atelectasis/consolidation involving the right middle lobe and both lower lobes -Pending blood cultures, urinary legionella antigen, urinary strep pneumo antigen, and sputum culture 2. COPD with chronic hypoxic respiratory failure on 2L -Requiring 3L here -Continue Advair -Duonebs q4h and PRN -IV steroids 3. Dysphagia 2/2 esophageal stricture s/p PEG tube -Dietary consultation for tube feeds -Dietary recommends Jevity 1.5 at 70mL/hr with free water flush 200mg q4h 4. ESBL colonization around PEG tube -Topical gentamicin 5. Atrial flutter Continue apixaban 6. Hypothyroidism Continue levothyroxine 7. DVT prophylaxis [facility] VS[facility] Vital Signs Date Time Temp Pulse Resp B/P (MAP) Pulse Ox O2 Delivery O2 Flow Rate FiO2 03/13/20 12:10 20 03/13/20 06:07 Nasal Cannula 03/13/20 06:00 97.7 80 113/65 (81) 93 3.0 I&O- Last 24 Hours up to 6 AM 03/13/20 06:00 Intake Total 680 ml Output Total 500 ml Balance 180 ml Laboratory Data 24H LABS Laboratory Tests 2 03/12/20 16:36: POC pH (Misc Panel) 7.381, POC Base Excess (Misc Panel) 15.0H, POC Saturated Percent O2 (Misc) 91L, POC pO2 (Misc Panel) 66.0L, POC pCO2 (Misc Panel) 68.0*H, POC HCO3 (Misc Panel) 40.3H, POC Total CO2 (Misc Panel) 42.0H 03/12/20 16:54: POC Total CO2 (Misc Panel) 40.0H, POC Glucose (Misc Panel) 156H, POC Sodium (Misc Panel) 139, POC Potassium (Misc Panel) 4.5, POC Chloride (Misc Panel) 93L, POC Blood Urea Nitrogen (Misc Panel 20, POC Ionized Calcium (Misc Panel) 4.7, POC Lactate (Misc Panel) 1.22, POC Creatinine (Misc Panel) 0.9, POC Hematocrit (Misc Panel) 58.0H 03/12/20 16:55: Immature Granulocyte % (Auto) 0.4, Neutrophils (%) (Auto) 92.9H, Lymphocytes (%) (Auto) 1.3L, Monocytes (%) (Auto) 5.0, Eosinophils (%) (Auto) 0.1, Basophils (%) (Auto) 0.3, Neutrophils # (Auto) 8.6H, Lymphocytes # (Auto) 0.1L, Monocytes # (Auto) 0.5, Eosinophils # (Auto) 0.0, Basophils # (Auto) 0.0, Nucleated Red Blood Cells % (auto) 0.0, Prothrombin Time 14.9H, Prothromb Time International Ratio 1.14, Total Bilirubin 0.4, Direct Bilirubin 0.2, Aspartate Amino Transf (AST/SGOT) 39H, Alanine Aminotransferase (ALT/SGPT) 57, Alkaline Phosphatase 94, AW-Mel-B-Type Natriuretic Peptide 88, Total Protein 6.1L, Albumin 2.4L, Albumin/Globulin Ratio 0.6, Thyroid Stimulating Hormone (TSH) 1.190, Thyroxine (T4) 8.1 03/12/20 17:01: POC Troponin I (Misc) 0.01 03/12/20 18:30: Procalcitonin 0.10 03/12/20 22:57: Troponin I < 0.02 03/12/20 22:59: 03/13/20 06:02: Immature Granulocyte % (Auto) 0.3, Neutrophils (%) (Auto) 94.1H, Lymphocytes (%) (Auto) 2.9L, Monocytes (%) (Auto) 2.6, Eosinophils (%) (Auto) 0.0, Basophils (%) (Auto) 0.1, Neutrophils # (Auto) 8.8H, Lymphocytes # (Auto) 0.3L, Monocytes # (Auto) 0.2, Eosinophils # (Auto) 0.0, Basophils # (Auto) 0.0, Nucleated Red Blood Cells % (auto) 0.0, Anion Gap 2L, Glomerular Filtration Rate > 60.0, Calcium Level 8.5L, Magnesium Level 2.3 CBC/BMP Laboratory Tests 03/12/20 16:55 03/13/20 06:02 Microbiology Microbiology 03/13/20 Gram Stain - Final, Complete 03/13/20 Sputum Culture - Final, Complete 03/12/20 Blood Culture, Received Pending 03/12/20 Respiratory Virus Panel (PCR) ([facility]) - Final, Complete 03/12/20 Blood Culture, Received Pending ADRIANA ABZAN DO Mar 13, 2020 14:18
--- NOTE | 2020-03-13 15:22 | REP ---
INDICATION: r/o SBO. Has PEG tube, abdominal distension. COMPARISON: CT a chest 03/12/2020, CT abdomen pelvis 06/09/2016. TECHNIQUE: Oral Gastrografin mixture 10 mL and 290 mL of flavored water for 2 doses per about contrast protocol was administered via PEG tube. Coronal and sagittal reconstructions were performed off the axial image set. FINDINGS: CT abdomen: There is confluent consolidative infiltrate or atelectasis with air bronchograms in lower lobes bilaterally. Small of right effusion evident as well. Is unchanged from yesterday's chest CT. Heart is not enlarged no pericardial thickening or effusion the aorta is calcifications in the descending portion and into the abdominal aorta without aneurysm no hiatal hernia a PEG tube in the stomach with some oral Gastrografin but no evidence of gastroesophageal reflux. No contrast leak evident. Right diaphragm is elevated compared to the CT of 2017 rotating the orientation of the liver compared to that study but unchanged from yesterday no hepatomegaly, splenomegaly focal plaque or splenic lesion, biliary dilatation no adjacent ascites. Gallbladder without calcified stone or mass visualized pancreas unremarkable adrenal glands normal kidneys show no hydronephrosis, stone, mass or perinephric fluid. The small cyst in the left kidney upper pole laterally. Small bowel loops are contrast or fluid filled but not abnormally dilated. Scattered stool and small amounts of gas in the colon without distention. There is no ascites in the abdomen. There is no perforation or free air. Bone windows show L1 and L2 grade 1 superior endplate compression deformities, old. CT pelvis distal left colon sigmoid with diverticulosis without diverticulitis or colitis cecum without inflammatory changes. Normal appendix visualized on these images. Small bowel loops in the pelvis were unremarkable. The bladder shows partial filling without mass. See no distal ureteral dilatation stone no pelvic free fluid or adenopathy. No ventral or inguinal hernia. IMPRESSION: 1. No CT evidence for small bowel obstruction or dilatation. Likewise the colon with scattered diverticulosis but no diverticulitis distention or obstruction. No ascites or free air and the PEG tube contrast administration shows no contrast leak. 2. Bibasilar chronic atelectasis or infiltrates in both the lower lobes and anteriorly in the right middle lobe, unchanged. 3. Prominent omental and mesenteric fat throughout causing some protuberance of the abdomen. No bowel abnormality to contribute to this finding. No other significant finding. <Electronically signed by Maverick Norman > 03/13/20 [id number]
[2020-03-13] MEDS: LevoFLOXacin IV 750 MG in IV 1 EA IV SCH (18:00)
[2020-03-13] MEDS: ATORVASTATIN 20 MG TAB PEG SCH (20:47)
[2020-03-13 22:00] VITALS: BP 126/66
[2020-03-13] MEDS: ceFAZolin SOD 2 GM in IV 1 EA IV SCH (22:53)
[2020-03-14] MEDS: IPRATROPIUM 0.5MG/ALBUTEROL 2.5MG INH SOL UD 3ML (DUONEB) NEB SCH ×5 (02:38→19:53)
[2020-03-14] MEDS: oxyCODONE 5MG TAB PEG PRN ×3 (03:31→18:01)
[2020-03-14 06:00] VITALS: BP 118/66
[2020-03-14] MEDS: LEVOTHYROXINE 100MCG TABLET (0.1MG) PEG SCH (06:13)
[2020-03-14] MEDS: methylPREDNISolone 125MG 2ML VIAL IV SCH ×2 (06:13→18:00)
[2020-03-14] MEDS: ceFAZolin SOD 2 GM in IV 1 EA IV SCH ×2 (06:13→16:30)
[2020-03-14 06:18] LABS: BASO % 0.1 % (0.0-1.0); HEMATOCRIT 37.3 % (42.0-52.0); HEMOGLOBIN 11.5 g/dl (13.5-17.5); LYMPH # 0.2 10^3/uL (1.5-5.0); LYMPH % 1.4 % (24.0-44.0); MEAN CORPUSCULAR HEMOGLOBIN 31.9 pg (27.0-33.0); MEAN CORPUSCULAR HGB CONC 30.8 g/dl (32.0-36.5); MEAN CORPUSCULAR VOLUME 103.3 fl (80.0-96.0); MONO % 6.4 % (0.0-5.0); NEUTROPHILS # 14.6 10^3/uL (1.5-8.5); NEUTROPHILS % 91.7 % (36.0-66.0); PLATELET COUNT, AUTOMATED 150 10^3/uL (150-450); RED BLOOD COUNT 3.61 10^6/uL (4.30-6.10)
[2020-03-14 06:43] LABS: BLOOD UREA NITROGEN 26 MG/DL (7-18); CALCIUM LEVEL 8.8 MG/DL (8.8-10.2); CARBON DIOXIDE LEVEL 40 MEQ/L (21-32); CHLORIDE LEVEL 94 MEQ/L (98-107); CREATININE FOR GFR 0.74 MG/DL (0.70-1.30); GLOMERULAR FILTRATION RATE > 60.0 (>49); GLUCOSE, FASTING 194 MG/DL (70-100); POTASSIUM SERUM 5.2 MEQ/L (3.5-5.1); SODIUM LEVEL 136 MEQ/L (136-145)
[2020-03-14] MEDS ORDERED: MIRALAX *UNIT DOSE* 17GM PACKET PO PRN (08:30)
[2020-03-14] MEDS ORDERED: DOCUSATE SODIUM 100 MG CAP PO SCH (09:00)
[2020-03-14] MEDS ORDERED: PATIROMER SORBITEX CALCIUM 8.4 GM POWDER PACKET (VELTASSA) PO ONE ×2 (09:00→19:45)
[2020-03-14] MEDS: LIDOCAINE 5% (LIDODERM) PATCH TD SCH (09:08)
[2020-03-14] MEDS: ADVAIR HFA 115/21MCG INHALER INH SCH ×2 (11:12→19:53)
[2020-03-14] MEDS ORDERED: MIRALAX *UNIT DOSE* 17GM PACKET PEG PRN (11:15)
[2020-03-14] MEDS: DOCUSATE SOD LIQ 100MG/10ML UDC PEG SCH (11:21)
[2020-03-14] MEDS: APIXABAN 5 MG TAB (ELIQUIS) PEG SCH (11:22)
[2020-03-14] MEDS: LACTOBACILLUS ACIDOPHILUS CAP (BACID) PEG SCH (11:22)
[2020-03-14] MEDS: GENTAMICIN SULFATE 0.1% OINT 15 GM TOP SCH (11:23)
[2020-03-14 16:19] LABS: BLOOD UREA NITROGEN 26 MG/DL (7-18); CALCIUM LEVEL 8.8 MG/DL (8.8-10.2); CARBON DIOXIDE LEVEL 40 MEQ/L (21-32); CHLORIDE LEVEL 92 MEQ/L (98-107); CREATININE FOR GFR 0.88 MG/DL (0.70-1.30); GLOMERULAR FILTRATION RATE > 60.0 (>49); GLUCOSE, FASTING 244 MG/DL (70-100); POTASSIUM SERUM 5.2 MEQ/L (3.5-5.1); SODIUM LEVEL 134 MEQ/L (136-145)
[2020-03-14] MEDS: LevoFLOXacin IV 750 MG in IV 1 EA IV SCH (18:00)
--- NOTE | 2020-03-14 19:45 | IPNPDOC ---
Subjective Date Seen The patient was seen on 03/14/20. Subjective Chief Complaint/HPI Mr. 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 He has been afebrile for more than 24 hours. Reports dyspnea. Denies chest pain or dysuria. He has not yet had a BM. Objective Physical Examination General Exam: Positive: Alert, Cooperative Eye Exam: Positive: EOMI; Negative: Sclera icteric ENT Exam: Positive: Atraumatic Neck Exam: Negative: Supple (has trouble bending neck) Chest Exam: Positive: Rhonchi; Negative: Clear to auscultation Heart Exam: Positive: Tachycardic, Regular Rhythm Abdomen Exam: Positive: Normal bowel sounds Extremity Exam: Positive: Edema Skin Exam: Positive: Rash (around PEG tube), Breakdown (around PEG tube) Neuro Exam: Negative: Normal Speech (difficult to understand speech) Psych Exam: Positive: Mental status NL, Mood NL Assessment /Plan Assessment Mr. 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 Patient sputum culture from November 2019 demonstrated both Pseudomonas and MSSA. Patient sputum culture from December 2019 demonstrated Corynebacterium species which may be colonization. Due to the Pseudomonas and MSSA, we will put him on levofloxacin and cefazolin. With his history of COPD and dyspnea, he'll be on DuoNeb's and IV steroids. For the ESBL which have been isolated from the wound culture around his PEG tube, we will continue gentamicin. Plan/VTE VTE Prophylaxis Ordered?: Yes Plan 1. Pneumonia Patient reports worsening dyspnea with fever X-ray demonstrates bibasilar infiltrates Patient was started on levofloxacin and ceftriaxone while in the ED Due to his history of pseudomonas and MSSA in his sputum culture, we will continue him on levofloxacin and cefazolin. -Also start probiotic CTA does not demonstrate PE, but there is atelectasis/consolidation involving the right middle lobe and both lower lobes -Pending blood cultures, urinary legionella antigen, urinary strep pneumo a ntigen, and sputum culture 2. COPD with chronic hypoxic respiratory failure on 2L -Requiring 3L here -Continue Advair -Duonebs q4h and PRN -IV steroids 3. Dysphagia 2/2 esophageal stricture s/p PEG tube -Dietary consultation for tube feeds -Dietary recommends Jevity 1.5 at 70mL/hr with free water flush 200mg q4h 4. ESBL colonization around PEG tube -Topical gentamicin 5. Atrial flutter Continue apixaban 6. Hypothyroidism Continue levothyroxine 7. DVT prophylaxis Already on apixaban VS, I&O, 24H, Fishbone Vital Signs/I&O Vital Signs Date Time Temp Pulse Resp B/P (MAP) Pulse Ox O2 Delivery O2 Flow Rate FiO2 03/14/20 18:31 20 03/14/20 11:24 Nasal Cannula 3.0 03/14/20 06:00 98.1 96 118/66 (83) 92 I&O- Last 24 Hours up to 6 AM 03/14/20 06:00 Intake Total 2470 ml Output Total 825 ml Balance 1645 ml Laboratory Data 24H LABS Laboratory Tests 2 03/14/20 05:46: Immature Granulocyte % (Auto) 0.4, Neutrophils (%) (Auto) 91.7H, Lymphocytes (%) (Auto) 1.4L, Monocytes (%) (Auto) 6.4H, Eosinophils (%) (Auto) 0.0, Basophils (%) (Auto) 0.1, Neutrophils # (Auto) 14.6H, Lymphocytes # (Auto) 0.2L, Monocytes # (Auto) 1.0H, Eosinophils # (Auto) 0.0, Basophils # (Auto) 0.0, Nucleated Red Blood Cells % (auto) 0.0, Anion Gap 2L, Glomerular Filtration Rate > 60.0, Calcium Level 8.8 03/14/20 14:01: Anion Gap 2L, Glomerular Filtration Rate > 60.0, Calcium Level 8.8 CBC/BMP Laboratory Tests 03/14/20 05:46 03/14/20 14:01 Microbiology Microbiology 03/13/20 Gram Stain - Final, Resulted 03/13/20 Sputum Culture, Resulted Pending 03/13/20 Gram Stain - Final, Complete 03/13/20 Sputum Culture - Final, Complete 03/12/20 Blood Culture - Preliminary, Resulted No Growth after 48 hours. All Specime... 03/12/20 Respiratory Virus Panel (PCR) ([facility]) - Final, Complete 03/12/20 Blood Culture - Preliminary, Resulted No Growth after 48 hours. All Specime... ADRIANA BAZAN. DO Mar 14, 2020 19:45
[2020-03-14] MEDS: **NOTE PATIENT COMMENT** MISC XX SCH (21:00)
[2020-03-14 22:00] VITALS: BP 133/74
[2020-03-15] MEDS: DOCUSATE SOD LIQ 100MG/10ML UDC PEG SCH ×3 (00:31→22:29)
[2020-03-15] MEDS: GENTAMICIN SULFATE 0.1% OINT 15 GM TOP SCH ×3 (00:32→22:30)
[2020-03-15] MEDS: ATORVASTATIN 20 MG TAB PEG SCH ×2 (00:32→22:30)
[2020-03-15] MEDS: APIXABAN 5 MG TAB (ELIQUIS) PEG SCH ×3 (00:32→22:30)
[2020-03-15] MEDS: ceFAZolin SOD 2 GM in IV 1 EA IV SCH ×4 (00:33→22:28)
[2020-03-15] MEDS: oxyCODONE 5MG TAB PEG PRN ×4 (00:35→18:52)
[2020-03-15] MEDS: IPRATROPIUM 0.5MG/ALBUTEROL 2.5MG INH SOL UD 3ML (DUONEB) NEB SCH ×7 (03:30→23:15)
[2020-03-15] MEDS: LEVOTHYROXINE 100MCG TABLET (0.1MG) PEG SCH (05:47)
[2020-03-15 06:00] VITALS: BP 128/73
[2020-03-15 06:44] LABS: BASO % 0.1 % (0.0-1.0); HEMATOCRIT 35.5 % (42.0-52.0); HEMOGLOBIN 10.7 g/dl (13.5-17.5); LYMPH # 0.3 10^3/uL (1.5-5.0); LYMPH % 2.2 % (24.0-44.0); MEAN CORPUSCULAR HEMOGLOBIN 30.7 pg (27.0-33.0); MEAN CORPUSCULAR HGB CONC 30.1 g/dl (32.0-36.5); MEAN CORPUSCULAR VOLUME 101.7 fl (80.0-96.0); MONO # 0.9 10^3/uL (0.0-0.8); MONO % 7.2 % (0.0-5.0); NEUTROPHILS # 10.9 10^3/uL (1.5-8.5); NEUTROPHILS % 89.8 % (36.0-66.0); PLATELET COUNT, AUTOMATED 163 10^3/uL (150-450); RED BLOOD COUNT 3.49 10^6/uL (4.30-6.10); WHITE BLOOD COUNT 12.2 10^3/uL (4.0-10.0)
[2020-03-15 07:06] LABS: BLOOD UREA NITROGEN 23 MG/DL (7-18); CALCIUM LEVEL 8.7 MG/DL (8.8-10.2); CARBON DIOXIDE LEVEL 41 MEQ/L (21-32); CHLORIDE LEVEL 93 MEQ/L (98-107); CREATININE FOR GFR 0.77 MG/DL (0.70-1.30); GLOMERULAR FILTRATION RATE > 60.0 (>49); GLUCOSE, FASTING 200 MG/DL (70-100); POTASSIUM SERUM 4.8 MEQ/L (3.5-5.1); SODIUM LEVEL 134 MEQ/L (136-145)
[2020-03-15] MEDS: ADVAIR HFA 115/21MCG INHALER INH SCH ×2 (07:16→20:15)
[2020-03-15] MEDS: LACTOBACILLUS ACIDOPHILUS CAP (BACID) PEG SCH (09:50)
[2020-03-15] MEDS: LIDOCAINE 5% (LIDODERM) PATCH TD SCH (09:50)
[2020-03-15] MEDS: methylPREDNISolone 40MG 1ML VIAL IV SCH (09:50)
[2020-03-15 14:00] VITALS: BP 124/73
[2020-03-15 14:13] LABS: BODY FLUID CULTURE Not indicated. (.); LEGIONELLA ANTIGEN URINE Negative (Negative); ORGANISM ID Not indicated. (.); SPECIMEN SOURCE Urine (.); URINE STREP PNEUMONIAE ANTIGEN Negative (Negative)
[2020-03-15] MEDS: LevoFLOXacin IV 750 MG in IV 1 EA IV SCH (18:01)
--- NOTE | 2020-03-15 19:33 | IPNPDOC ---
Subjective Date Seen The patient was seen on 03/15/20. Subjective Chief Complaint/HPI Mr. 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 This morning, he had nausea and vomited some of his tube feeds. The tube feeds were held and later in the day restarted at 60mL/hr. Otherwise, today, he denies any fever/chills, chest pain, abdominal pain, or dysuria. Objective Physical Examination General Exam: Positive: Alert, Cooperative Eye Exam: Positive: EOMI; Negative: Sclera icteric ENT Exam: Positive: Atraumatic Neck Exam: Negative: Supple (has trouble bending neck) Chest Exam: Positive: Rhonchi; Negative: Clear to auscultation Heart Exam: Positive: Tachycardic, Regular Rhythm Abdomen Exam: Positive: Normal bowel sounds Extremity Exam: Positive: Edema Skin Exam: Positive: Rash (around PEG tube), Breakdown (around PEG tube) Neuro Exam: Negative: Normal Speech (difficult to understand speech) Psych Exam: Positive: Mental status NL, Mood NL Assessment /Plan Assessment Mr. 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 Patient sputum culture from November 2019 demonstrated both Pseudomonas and MSSA. Patient sputum culture from December 2019 demonstrated Corynebacterium species which may be colonization. Due to the Pseudomonas and MSSA, we will put him on levofloxacin and cefazolin. With his history of COPD and dyspnea, he'll be on DuoNeb's and IV steroids. For the ESBL which have been isolated from the wound culture around his PEG tube, we will continue gentamicin. Plan/VTE VTE Prophylaxis Ordered?: Yes Plan 1. Pneumonia Patient reports worsening dyspnea with fever X-ray demonstrates bibasilar infiltrates Patient was started on levofloxacin and ceftriaxone while in the ED Due to his history of pseudomonas and MSSA in his sputum culture, we will continue him on levofloxacin and cefazolin. -Also start probiotic CTA does not demonstrate PE, but there is atelectasis/consolidation involving the right middle lobe and both lower lobes 2. COPD with chronic hypoxic respiratory failure on 2L -Requiring 3L here -Continue Advair -Duonebs q4h and PRN -IV steroids 3. Dysphagia 2/2 esophageal stricture s/p PEG tube -Dietary consultation for tube feeds -Dietary recommends Jevity 1.5 at 70mL/hr with free water flush 200mg q4h 4. ESBL colonization around PEG tube -Topical gentamicin 5. Atrial flutter Continue apixaban 6. Hypothyroidism Continue levothyroxine 7. DVT prophylaxis Already on apixaban VS, I&O, 24H, Fishbone Vital Signs/I&O Vital Signs Date Time Temp Pulse Resp B/P (MAP) Pulse Ox O2 Delivery O2 Flow Rate FiO2 03/15/20 18:52 20 03/15/20 14:00 98.1 79 124/73 (90) 95 03/15/20 12:45 Nasal Cannula 2.0 I&O- Last 24 Hours up to 6 AM 03/15/20 06:00 Intake Total 2750 ml Output Total 925 ml Balance 1825 ml Laboratory Data 24H LABS Laboratory Tests 2 03/15/20 06:17: Immature Granulocyte % (Auto) 0.7, Neutrophils (%) (Auto) 89.8H, Lymphocytes (%) (Auto) 2.2L, Monocytes (%) (Auto) 7.2H, Eosinophils (%) (Auto) 0.0, Basophils (%) (Auto) 0.1, Neutrophils # (Auto) 10.9H, Lymphocytes # (Auto) 0.3L, Monocytes # (Auto) 0.9H, Eosinophils # (Auto) 0.0, Basophils # (Auto) 0.0, Nucleated Red Blood Cells % (auto) 0.0, Anion Gap 0L, Glomerular Filtration Rate > 60.0, Calcium Level 8.7L CBC/BMP Laboratory Tests 03/15/20 06:17 Microbiology Microbiology 03/13/20 Gram Stain - Final, Resulted 03/13/20 Sputum Culture - Preliminary, Resulted Corynebacterium Species 03/13/20 Gram Stain - Final, Complete 03/13/20 Sputum Culture - Final, Complete 03/12/20 Blood Culture - Preliminary, Resulted No Growth after 72 hours. All specime... 03/12/20 Respiratory Virus Panel (PCR) ([facility]) - Final, Complete 03/12/20 Blood Culture - Preliminary, Resulted No Growth after 72 hours. All specime... ADRIANA BAZAN. DO Mar 15, 2020 19:33
[2020-03-15] MEDS: **NOTE PATIENT COMMENT** MISC XX SCH (21:00)
[2020-03-15 22:00] VITALS: BP 119/72
[2020-03-16] MEDS: oxyCODONE 5MG TAB PEG PRN ×4 (01:05→20:04)
[2020-03-16] MEDS: IPRATROPIUM 0.5MG/ALBUTEROL 2.5MG INH SOL UD 3ML (DUONEB) NEB SCH ×6 (04:00→23:31)
[2020-03-16] MEDS: LEVOTHYROXINE 100MCG TABLET (0.1MG) PEG SCH (05:56)
[2020-03-16 06:00] VITALS: BP 104/66
[2020-03-16] MEDS: ceFAZolin SOD 2 GM in IV 1 EA IV SCH ×3 (06:07→23:31)
[2020-03-16 06:25] LABS: BASO % 0.1 % (0.0-1.0); HEMATOCRIT 35.3 % (42.0-52.0); HEMOGLOBIN 10.8 g/dl (13.5-17.5); LYMPH # 0.6 10^3/uL (1.5-5.0); LYMPH % 5.9 % (24.0-44.0); MEAN CORPUSCULAR HEMOGLOBIN 30.6 pg (27.0-33.0); MEAN CORPUSCULAR HGB CONC 30.6 g/dl (32.0-36.5); MONO # 1.1 10^3/uL (0.0-0.8); MONO % 11.5 % (0.0-5.0); NEUTROPHILS # 7.7 10^3/uL (1.5-8.5); NEUTROPHILS % 81.2 % (36.0-66.0); PLATELET COUNT, AUTOMATED 177 10^3/uL (150-450); RED BLOOD COUNT 3.53 10^6/uL (4.30-6.10); WHITE BLOOD COUNT 9.5 10^3/uL (4.0-10.0)
[2020-03-16 06:49] LABS: BLOOD UREA NITROGEN 21 MG/DL (7-18); CALCIUM LEVEL 8.6 MG/DL (8.8-10.2); CARBON DIOXIDE LEVEL 41 MEQ/L (21-32); CHLORIDE LEVEL 95 MEQ/L (98-107); CREATININE FOR GFR 0.76 MG/DL (0.70-1.30); GLOMERULAR FILTRATION RATE > 60.0 (>49); GLUCOSE, FASTING 150 MG/DL (70-100); POTASSIUM SERUM 3.9 MEQ/L (3.5-5.1); SODIUM LEVEL 136 MEQ/L (136-145)
[2020-03-16] MEDS: ADVAIR HFA 115/21MCG INHALER INH SCH ×2 (07:22→19:02)
[2020-03-16] MEDS: LACTOBACILLUS ACIDOPHILUS CAP (BACID) PEG SCH (09:59)
[2020-03-16] MEDS: DOCUSATE SOD LIQ 100MG/10ML UDC PEG SCH ×2 (09:59→20:04)
[2020-03-16] MEDS: methylPREDNISolone 40MG 1ML VIAL IV SCH (09:59)
[2020-03-16] MEDS: GENTAMICIN SULFATE 0.1% OINT 15 GM TOP SCH (10:00)
[2020-03-16] MEDS: APIXABAN 5 MG TAB (ELIQUIS) PEG SCH ×2 (10:00→20:02)
[2020-03-16] MEDS: LIDOCAINE 5% (LIDODERM) PATCH TD SCH (10:01)
[2020-03-16 14:00] VITALS: BP 109/68
--- NOTE | 2020-03-16 16:39 | IPNPDOC ---
Subjective Date Seen The patient was seen on 03/16/20. Subjective Chief Complaint/HPI Mr. 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 Overnight, there was a problem obtaining residuals and it appeared that the tube was more out than normal. General surgery visited. Recommend a C-clamp to help with the residuals. Looking at the skin around the tube, since it was sliding in and out, gastric juice was leaking and burning the skin. Recommended butt paste around the tube. He advance the tube further and inflated the balloon more to stabilize and prevent more sliding. Otherwise, patient denies fever/chills, chest pain, abdominal pain, or dysuria. Objective Physical Examination General Exam: Positive: Alert, Cooperative Eye Exam: Positive: EOMI; Negative: Sclera icteric ENT Exam: Positive: Atraumatic Neck Exam: Negative: Supple (has trouble bending neck) Chest Exam: Positive: Rhonchi; Negative: Clear to auscultation Heart Exam: Positive: Tachycardic, Regular Rhythm Abdomen Exam: Positive: Normal bowel sounds Extremity Exam: Positive: Edema Skin Exam: Positive: Rash (around PEG tube), Breakdown (around PEG tube) Neuro Exam: Negative: Normal Speech (difficult to understand speech) Psych Exam: Positive: Mental status NL, Mood NL Assessment /Plan Assessment Mr. 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 Patient sputum culture from November 2019 demonstrated both Pseudomonas and MSSA. Patient sputum culture from December 2019 demonstrated Corynebacterium species which may be colonization. Due to the Pseudomonas and MSSA, we will put him on levofloxacin and cefazolin. With his history of COPD and dyspnea, he'll be on DuoNeb's and IV steroids. The skin around the PEG tube is irritation from gastric juices from sliding PEG tube, not an infection. Discontinued Gentamicin. Started Butt paste to protect the skin Plan/VTE VTE Prophylaxis Ordered?: Yes Plan 1. Pneumonia Patient reports worsening dyspnea with fever X-ray demonstrates bibasilar infiltrates Patient was started on levofloxacin and ceftriaxone while in the ED Due to his history of pseudomonas and MSSA in his sputum culture, we will continue him on levofloxacin and cefazolin. -Also start probiotic CTA does not demonstrate PE, but there is atelectasis/consolidation involving the right middle lobe and both lower lobes 2. COPD with chronic hypoxic respiratory failure on 2L -Requiring 3L here -Continue Advair -Duonebs q4h and PRN -IV steroids 3. Dysphagia 2/2 esophageal stricture s/p PEG tube -Dietary consultation for tube feeds -Dietary recommends Jevity 1.5 at 70mL/hr with free water flush 200mg q4h -Due to vomiting with 70mL/hr, will reduce to 60mL/hr 4. Irritant contact dermatitis -From gastric acid that leaks with sliding PEG tube -General surgery inflated the balloon more to fixate the tube better -Butt paste around site -Not infection. It is irritant contact dermatitis from gastric acid leakage 5. Atrial flutter Continue apixaban 6. Hypothyroidism Continue levothyroxine 7. DVT prophylaxis Already on apixaban VS, I&O, 24H, Fishbone Vital Signs/I&O Vital Signs Date Time Temp Pulse Resp B/P (MAP) Pulse Ox O2 Delivery O2 Flow Rate FiO2 03/16/20 14:46 20 03/16/20 14:00 97.0 81 109/68 (82) 95 Nasal Cannula 3.0 I&O- Last 24 Hours up to 6 AM 03/16/20 06:00 Intake Total 1580 ml Output Total 1225 ml Balance 355 ml Laboratory Data 24H LABS Laboratory Tests 2 03/16/20 06:06: Immature Granulocyte % (Auto) 1.3, Neutrophils (%) (Auto) 81.2H, Lymphocytes (%) (Auto) 5.9L, Monocytes (%) (Auto) 11.5H, Eosinophils (%) (Auto) 0.0, Basophils (%) (Auto) 0.1, Neutrophils # (Auto) 7.7, Lymphocytes # (Auto) 0.6L, Monocytes # (Auto) 1.1H, Eosinophils # (Auto) 0.0, Basophils # (Auto) 0.0, Nucleated Red Blood Cells % (auto) 0.0, Anion Gap 0L, Glomerular Filtration Rate > 60.0, Calcium Level 8.6L CBC/BMP Laboratory Tests 03/16/20 06:06 Microbiology Microbiology 03/13/20 Gram Stain - Final, Complete 03/13/20 Sputum Culture - Final, Complete Corynebacterium Species 03/13/20 Gram Stain - Final, Complete 03/13/20 Sputum Culture - Final, Complete 03/12/20 Blood Culture - Preliminary, Resulted No Growth after 72 hours. All specime... 03/12/20 Respiratory Virus Panel (PCR) ([facility]) - Final, Complete 03/12/20 Blood Culture - Preliminary, Resulted No Growth after 72 hours. All specime... ADRIANA BAZAN DO Mar 16, 2020 16:39
[2020-03-16] MEDS: LevoFLOXacin IV 750 MG in IV 1 EA IV SCH (17:47)
[2020-03-16] MEDS: ATORVASTATIN 20 MG TAB PEG SCH (20:02)
[2020-03-16] MEDS: BOUDREAUX'S BUTT PASTE TOP SCH (20:05)
[2020-03-16] MEDS: **NOTE PATIENT COMMENT** MISC XX SCH (20:06)
[2020-03-16 22:00] VITALS: BP 112/67
[2020-03-17] MEDS: oxyCODONE 5MG TAB PEG PRN ×4 (02:24→21:24)
[2020-03-17] MEDS: LEVOTHYROXINE 100MCG TABLET (0.1MG) PEG SCH (05:42)
[2020-03-17] MEDS: IPRATROPIUM 0.5MG/ALBUTEROL 2.5MG INH SOL UD 3ML (DUONEB) NEB SCH ×6 (05:42→23:23)
[2020-03-17 06:00] VITALS: BP 131/81
[2020-03-17] MEDS: ceFAZolin SOD 2 GM in IV 1 EA IV SCH ×3 (06:01→21:23)
[2020-03-17 06:40] LABS: BASO % 0.2 % (0.0-1.0); EOS % 0.1 % (0.0-3.0); HEMATOCRIT 37.4 % (42.0-52.0); LYMPH # 0.9 10^3/uL (1.5-5.0); LYMPH % 9.2 % (24.0-44.0); MEAN CORPUSCULAR HEMOGLOBIN 31.3 pg (27.0-33.0); MEAN CORPUSCULAR HGB CONC 32.1 g/dl (32.0-36.5); MEAN CORPUSCULAR VOLUME 97.7 fl (80.0-96.0); MONO # 1.2 10^3/uL (0.0-0.8); MONO % 12.3 % (0.0-5.0); NEUTROPHILS # 7.2 10^3/uL (1.5-8.5); NEUTROPHILS % 75.7 % (36.0-66.0); PLATELET COUNT, AUTOMATED 178 10^3/uL (150-450); RED BLOOD COUNT 3.83 10^6/uL (4.30-6.10); WHITE BLOOD COUNT 9.5 10^3/uL (4.0-10.0)
[2020-03-17 06:57] LABS: BLOOD UREA NITROGEN 15 MG/DL (7-18); CALCIUM LEVEL 8.2 MG/DL (8.8-10.2); CARBON DIOXIDE LEVEL 39 MEQ/L (21-32); CHLORIDE LEVEL 96 MEQ/L (98-107); CREATININE FOR GFR 0.77 MG/DL (0.70-1.30); GLOMERULAR FILTRATION RATE > 60.0 (>49); GLUCOSE, FASTING 101 MG/DL (70-100); POTASSIUM SERUM 3.9 MEQ/L (3.5-5.1); SODIUM LEVEL 138 MEQ/L (136-145)
[2020-03-17] MEDS: ADVAIR HFA 115/21MCG INHALER INH SCH ×2 (07:23→19:27)
[2020-03-17] MEDS: LIDOCAINE 5% (LIDODERM) PATCH TD SCH (09:00)
[2020-03-17] MEDS: APIXABAN 5 MG TAB (ELIQUIS) PEG SCH ×2 (09:21→21:23)
[2020-03-17] MEDS: LACTOBACILLUS ACIDOPHILUS CAP (BACID) PEG SCH (09:21)
[2020-03-17] MEDS: DOCUSATE SOD LIQ 100MG/10ML UDC PEG SCH ×2 (09:21→21:23)
[2020-03-17] MEDS: methylPREDNISolone 40MG 1ML VIAL IV SCH (09:21)
--- NOTE | 2020-03-17 12:42 | IPNPDOC ---
Subjective Date Seen The patient was seen on 03/17/20. Subjective Chief Complaint/HPI Mr. 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 Dietary had recommended increasing tube feeds to 70mL/hr, but he has not tolerated that rate. He did tolerate 60mL/hr with residuals around 25mL. He feels comfortable increasing rate to 60mL/hr. Otherwise denies fever, chest pain, or dysuria. Objective Physical Examination General Exam: Positive: Alert, Cooperative Eye Exam: Positive: EOMI; Negative: Sclera icteric ENT Exam: Positive: Atraumatic Neck Exam: Negative: Supple (has trouble bending neck) Chest Exam: Positive: Rhonchi; Negative: Clear to auscultation Heart Exam: Positive: Tachycardic, Regular Rhythm Abdomen Exam: Positive: Normal bowel sounds Extremity Exam: Positive: Edema Skin Exam: Positive: Rash (around PEG tube), Breakdown (around PEG tube) Neuro Exam: Negative: Normal Speech (difficult to understand speech) Psych Exam: Positive: Mental status NL, Mood NL Assessment /Plan Assessment Mr. 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 Patient sputum culture from November 2019 demonstrated both Pseudomonas and MSSA. Patient sputum culture from December 2019 demonstrated Corynebacterium species which may be colonization. Due to the Pseudomonas and MSSA, we will put him on levofloxacin and cefazolin. With his history of COPD and dyspnea, he'll be on DuoNeb's and IV steroids. The skin around the PEG tube is irritation from gastric juices from sliding PEG tube, not an infection. Discontinued Gentamicin. Started Butt paste to protect the skin Plan/VTE VTE Prophylaxis Ordered?: Yes Plan 1. Pneumonia Patient reports worsening dyspnea with fever X-ray demonstrates bibasilar infiltrates Patient was started on levofloxacin and ceftriaxone while in the ED Due to his history of pseudomonas and MSSA in his sputum culture, we will continue him on levofloxacin and cefazolin. -Also start probiotic CTA does not demonstrate PE, but there is atelectasis/consolidation involving the right middle lobe and both lower lobes 2. COPD with chronic hypoxic respiratory failure on 2L -Requiring 3L here -Continue Advair -Duonebs q4h and PRN -IV steroids 3. Dysphagia 2/2 esophageal stricture s/p PEG tube -Dietary consultation for tube feeds -Dietary recommends Jevity 1.5 at 70mL/hr with free water flush 200mg q4h -Due to vomiting with 70mL/hr, will reduce to 60mL/hr 4. Irritant contact dermatitis -From gastric acid that leaks with sliding PEG tube -General surgery inflated the balloon more to fixate the tube better -Butt paste around site -Not infection. It is irritant contact dermatitis from gastric acid leakage 5. Atrial flutter Continue apixaban 6. Hypothyroidism Continue levothyroxine 7. DVT prophylaxis Already on apixaban Dispo: To return home with 01/12 care with his son. Possibly tomorrow. VS, I&O, 24H, [facility] Vital Signs/I&O Vital Signs Date Time Temp Pulse Resp B/P (MAP) Pulse Ox O2 Delivery O2 Flow Rate FiO2 03/17/20 09:52 18 03/17/20 09:22 96 Nasal Cannula 2.0 03/17/20 06:00 98.5 78 131/81 (98) I&O- Last 24 Hours up to 6 AM 03/17/20 06:00 Intake Total 2390 ml Output Total 1800 ml Balance 590 ml Laboratory Data 24H LABS Laboratory Tests 2 03/17/20 06:22: Immature Granulocyte % (Auto) 2.5, Neutrophils (%) (Auto) 75.7H, Lymphocytes (%) (Auto) 9.2L, Monocytes (%) (Auto) 12.3H, Eosinophils (%) (Auto) 0.1, Basophils (%) (Auto) 0.2, Neutrophils # (Auto) 7.2, Lymphocytes # (Auto) 0.9L, Monocytes # (Auto) 1.2H, Eosinophils # (Auto) 0.0, Basophils # (Auto) 0.0, Nucleated Red Blood Cells % (auto) 0.0, Anion Gap 3L, Glomerular Filtration Rate > 60.0, Calcium Level 8.2L CBC/BMP Laboratory Tests 03/17/20 06:22 Microbiology Microbiology 03/13/20 Gram Stain - Final, Complete 03/13/20 Sputum Culture - Final, Complete Corynebacterium Species 03/13/20 Gram Stain - Final, Complete 03/13/20 Sputum Culture - Final, Complete 03/12/20 Blood Culture - Preliminary, Resulted No Growth after 72 hours. All specime... 03/12/20 Respiratory Virus Panel (PCR) (TATIANA) - Final, Complete 03/12/20 Blood Culture - Preliminary, Resulted No Growth after 72 hours. All specime... ADRIANA BAZAN DO Mar 17, 2020 12:42
[2020-03-17 14:00] VITALS: BP 159/95
[2020-03-17] MEDS: BOUDREAUX'S BUTT PASTE TOP SCH ×2 (15:05→21:26)
[2020-03-17] MEDS: LevoFLOXacin IV 750 MG in IV 1 EA IV SCH (17:37)
[2020-03-17] MEDS: **NOTE PATIENT COMMENT** MISC XX SCH (21:00)
[2020-03-17] MEDS: ATORVASTATIN 20 MG TAB PEG SCH (21:24)
[2020-03-17 22:00] VITALS: BP 118/71
[2020-03-18] MEDS: oxyCODONE 5MG TAB PEG PRN ×2 (03:26→09:19)
[2020-03-18] MEDS: LEVOTHYROXINE 100MCG TABLET (0.1MG) PEG SCH (05:13)
[2020-03-18 06:00] VITALS: BP 121/75
[2020-03-18 06:15] LABS: BASO % 0.3 % (0.0-1.0); EOS % 0.4 % (0.0-3.0); HEMATOCRIT 36.2 % (42.0-52.0); HEMOGLOBIN 11.7 g/dl (13.5-17.5); LYMPH # 0.7 10^3/uL (1.5-5.0); LYMPH % 6.5 % (24.0-44.0); MEAN CORPUSCULAR HGB CONC 32.3 g/dl (32.0-36.5); MONO # 1.1 10^3/uL (0.0-0.8); MONO % 10.9 % (0.0-5.0); NEUTROPHILS # 8.1 10^3/uL (1.5-8.5); NEUTROPHILS % 78.5 % (36.0-66.0); PLATELET COUNT, AUTOMATED 191 10^3/uL (150-450); RED BLOOD COUNT 3.77 10^6/uL (4.30-6.10); WHITE BLOOD COUNT 10.3 10^3/uL (4.0-10.0)
[2020-03-18 06:41] LABS: BLOOD UREA NITROGEN 15 MG/DL (7-18); CALCIUM LEVEL 8.5 MG/DL (8.8-10.2); CARBON DIOXIDE LEVEL 37 MEQ/L (21-32); CHLORIDE LEVEL 97 MEQ/L (98-107); CREATININE FOR GFR 0.74 MG/DL (0.70-1.30); GLOMERULAR FILTRATION RATE > 60.0 (>49); GLUCOSE, FASTING 142 MG/DL (70-100); SODIUM LEVEL 138 MEQ/L (136-145)
[2020-03-18] MEDS: ceFAZolin SOD 2 GM in IV 1 EA IV SCH (06:49)
[2020-03-18] MEDS: IPRATROPIUM 0.5MG/ALBUTEROL 2.5MG INH SOL UD 3ML (DUONEB) NEB SCH (07:43)
[2020-03-18] MEDS: ADVAIR HFA 115/21MCG INHALER INH SCH (07:43)
[2020-03-18] MEDS: LIDOCAINE 5% (LIDODERM) PATCH TD SCH (09:00)
[2020-03-18] MEDS: methylPREDNISolone 40MG 1ML VIAL IV SCH (09:18)
[2020-03-18] MEDS: DOCUSATE SOD LIQ 100MG/10ML UDC PEG SCH (09:18)
[2020-03-18] MEDS: APIXABAN 5 MG TAB (ELIQUIS) PEG SCH (09:18)
[2020-03-18] MEDS: BOUDREAUX'S BUTT PASTE TOP SCH (09:19)
[2020-03-18] MEDS ORDERED: PRED5PAK PO (09:20)
[2020-03-18] MEDS ORDERED: BOUDPST TOP (09:20)
[2020-03-18] MEDS: LACTOBACILLUS ACIDOPHILUS CAP (BACID) PEG SCH (09:20)
--- NOTE | 2020-03-18 23:38 | DS.PDOC ---
Discharge Summary General Date of Admission Mar 12, 2020 at 17:50 Date of Discharge Mar 18, 2020 Attending Physician: ADRIANA BAZAN DO Discharge Summary PROCEDURES PERFORMED DURING STAY: None ADMITTING DIAGNOSES: 1. COPD exacerbation 2. Pneumonia 3. Dysphagia 2/2 esophageal stricture s/p PEG tube 4. ESBL colonization around PEG tube 5. Atrial flutter 6. Hypothyroidism DISCHARGE DIAGNOSES: 1. COPD exacerbation 2. Pneumonia 3. Dysphagia 2/2 esophageal stricture s/p PEG tube 4. Irritant contact dermatitis 5. Atrial flutter 6. Hypothyroidism COMPLICATIONS/CHIEF COMPLAINT: Pneumonia. HISTORY OF PRESENT ILLNESS: Mr. 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 About 2 days ago, he started to have difficulty breathing. Denies a cough, but he's been having fevers. While in the ED, his temperature of 102.1. He denies any sick contacts or recent travel. His main complaint today was dyspnea is chronically on 2 L of oxygen at home. While he's been in the ED, he required 3 L of oxygen. Otherwise, looking back at his last admission, he had ESBL colonization of the skin around his PEG tube. Denies any abdominal pain did not have any abdominal tenderness. The skin around the PEG tube appears erythematous and warm, but not tender. While in the ED, he received Solu-Medrol, ceftriaxone, and levofloxacin. HOSPITAL COURSE: We obtained a dietary consultation which recommended he increase his tube feedings from 50mL/hr to 70mLhr. After trying 70mL/hr, he had emesis with tube feedings. His rate was lowered to 60mL/hr which he tolerated and felt better. Otherwise, his PEG tube was loose and sliding back and forth. General surgery came by and examined it. The balloon was inflated more so it would stay closer to the skin. Area around site is not cellulitis. It is irritant contact dermatitis from gastric juice leaking every time the PEG tube slides out. Recommended Butt Paste as a layer of protection over the area. Today, he felt well. Denies fever/chills, chest pain, abdominal pain, or dysuria. He was subsequently discharged home DISCHARGE MEDICATIONS: Please see below. ALLERGIES: Please see below. PHYSICAL EXAMINATION ON DISCHARGE: VITAL SIGNS: Please see below. GENERAL: Comfortable, in no apparent distress HEENT: Head normocephalic, atraumatic NECK: No thyromegaly CARDIOVASCULAR EXAMINATION: Regular rate and rhythm RESPIRATORY EXAMINATION: Coarse breath sound ABDOMINAL EXAMINATION: Mildly distended, but soft. PEG tube on left side EXTREMITIES: Mild bilateral pitting edema SKIN: Irritated skin around PEG tube site NEUROLOGICAL EXAMINATION: CN 3-12 grossly intact PSYCHIATRIC EXAMINATION: Normal mood and affect LABORATORY DATA: Please see below. IMAGING: CTA chest 1. No pulmonary embolism. 2. Chronic atelectasis or consolidation involving the right middle lobe and both lower lobes, which was also present in the prior CTA chest on 11/14/2019 and 06/29/2019. 3. Centrilobular emphysematous changes, predominantly in the upper lobes, which are similar in appearance compared to the prior CTA chest on 11/14/2019. CT abd/pelvis 1. No CT evidence for small bowel obstruction or dilatation. Likewise the colon with scattered diverticulosis but no diverticulitis distention or obstruction. No ascites or free air and the PEG tube contrast administration shows no contrast leak. 2. Bibasilar chronic atelectasis or infiltrates in both the lower lobes and anteriorly in the right middle lobe, unchanged. 3. Prominent omental and mesenteric fat throughout causing some protuberance of the abdomen. No bowel abnormality to contribute to this finding. No other signi ficant finding. PROGNOSIS: Stable ACTIVITY: As tolerated DIET: Tube feed, Jevity 60mL/hr, Free water flushes 200mL q6hr DISCHARGE PLAN: Home DISPOSITION: 01 Home, Self-Care. DISCHARGE INSTRUCTIONS: 1. Follow up with your PCP within 5 days DISCHARGE CONDITION: Stable. Total time spent on discharge planning discharge summary and medication reconciliation: 45 mins Vital Signs/I&Os Vital Signs Date Time Temp Pulse Resp B/P (MAP) Pulse Ox O2 Delivery O2 Flow Rate FiO2 03/18/20 09:49 20 03/18/20 09:19 Nasal Cannula 2.0 03/18/20 06:00 98.2 89 121/75 (90) 94 I&O- Last 24 Hours up to 6 AM 03/18/20 06:00 Intake Total 1370 ml Output Total 2650 ml Balance -1280 ml Laboratory Data Labs 24H Laboratory Tests 2 03/18/20 06:01: Immature Granulocyte % (Auto) 3.4H, Neutrophils (%) (Auto) 78.5H, Lymphocytes (%) (Auto) 6.5L, Monocytes (%) (Auto) 10.9H, Eosinophils (%) (Auto) 0.4, Basophils (%) (Auto) 0.3, Neutrophils # (Auto) 8.1, Lymphocytes # (Auto) 0.7L, Monocytes # (Auto) 1.1H, Eosinophils # (Auto) 0.0, Basophils # (Auto) 0.0, Nucleated Red Blood Cells % (auto) 0.0, Anion Gap 4L, Glomerular Filtration Rate > 60.0, Calcium Level 8.5L CBC/BMP Laboratory Tests 03/18/20 06:01 Microbiology Microbiology 03/13/20 Gram Stain - Final, Complete 03/13/20 Sputum Culture - Final, Complete Corynebacterium Species 03/13/20 Gram Stain - Final, Complete 03/13/20 Sputum Culture - Final, Complete 03/12/20 Blood Culture - Final, Complete NO GROWTH AFTER 5 DAYS 03/12/20 Respiratory Virus Panel (PCR) (TATIANA) - Final, Complete 03/12/20 Blood Culture - Final, Complete NO GROWTH AFTER 5 DAYS Discharge Medications Scheduled Apixaban (Eliquis) 5 Mg Tablet, 5 MG FT BID, (Reported) Atorvastatin Calcium (Atorvastatin Calcium) 40 Mg Tablet, 40 MG FT QHS, (Reported) Fluticasone Propion/Salmeterol (Advair Hfa 115-21 Mcg Inhaler) 12 Gm Hfa.aer.ad, 2 PUFF INH BID, (Reported) Levothyroxine Sodium (Levothyroxine Sodium) 100 Mcg Tab, 100 MCG FT DAILY, (Reported) Prednisone (Prednisone) 5 Mg Tab.ds.pk, 5 MG PO ASDIRECTED 6 day dose pack taper Zinc Oxide (Boudreauxs) 16% Oint...g., 1 DOSE TOP BID Apply around PEG tube site Scheduled PRN Albuterol Sulf (Albuterol Sulfate) 2.5 Mg/3 Ml Vial.neb, 1 VIAL NEB Q4H PRN for SOB/WHEEZING, (Reported) Oxycodone Hcl (Oxycodone HCl) 15 Mg Tablet, 30 MG FT Q6H PRN for PAIN, ( Reported) Allergies Coded Allergies: latex (Verified Allergy, Intermediate, hives, 02/23/19) ADRIANA BAZAN DO Mar 18, 2020 23:38
== END 2020-03-18 10:51 | disposition home or self-care (01) | DRG 190 ==
LOC: M ED 15:32 → M ED INP 17:50 → ENRESERV 18:14 → M MSPAV 19:48
PROVIDERS: ADMIT Internal Medicine; ATTEND Internal Medicine
DX: J44.1 Chronic obstructive pulmonary disease with (acute) exacerbation (principal); J18.9 Pneumonia, unspecified organism; J96.11 Chronic respiratory failure with hypoxia; I48.92 Unspecified atrial flutter; J44.0 Chronic obstructive pulmonary disease with (acute) lower respiratory infection; R13.10 Dysphagia, unspecified; K22.2 Esophageal obstruction; E03.9 Hypothyroidism, unspecified; Z79.899 Other long term (current) drug therapy; Z91.040 Latex allergy status; Z85.818 Personal history of malignant neoplasm of other sites of lip, oral cavity, and pharynx; Z79.01 Long term (current) use of anticoagulants; M19.90 Unspecified osteoarthritis, unspecified site; Z93.1 Gastrostomy status; I25.10 Atherosclerotic heart disease of native coronary artery without angina pectoris; I25.2 Old myocardial infarction; E78.5 Hyperlipidemia, unspecified; Z86.711 Personal history of pulmonary embolism; Z87.891 Personal history of nicotine dependence; Z92.3 Personal history of irradiation

== ENCOUNTER 2020-04-16 10:42 | Inpatient (IN) | payer MEDICARE, MEDICAID ==
[~2020-04-16] VITALS: Ht 170.2 cm; Wt 84.3 kg
[~2020-04-16 10:42] MED LIST changes: +ALBU83IN NEB; +BOUDPST TOP; +PRED5PAK PO
[2020-04-16 11:13] LABS: VENOUS BASE EXCESS 8.1 (-2.0-2.0); VENOUS HCO3 39.6 MEQ/L (23.0-27.0); VENOUS O2 SATURATION 71.6 % (60.0-80.0); VENOUS PARTIAL PRESSURE CO2 95.5 mmHg (38.0-50.0); VENOUS PARTIAL PRESSURE O2 40.7 mmHg (30.0-50.0); VENOUS PH 7.236 UNITS (7.330-7.430); VENOUS STANDARD HCO3 31.2 MEQ/L; VENOUS TOTAL CO2 42.6 MEQ/L (24.0-28.0)
[2020-04-16 11:14] LABS: BASO % 0.6 % (0.0-1.0); EOS # 0.2 10^3/uL (0.0-0.5); EOS % 2.6 % (0.0-3.0); HEMATOCRIT 44.6 % (42.0-52.0); HEMOGLOBIN 13.2 g/dl (13.5-17.5); LYMPH # 0.8 10^3/uL (1.5-5.0); LYMPH % 13.3 % (24.0-44.0); MEAN CORPUSCULAR HEMOGLOBIN 30.7 pg (27.0-33.0); MEAN CORPUSCULAR HGB CONC 29.6 g/dl (32.0-36.5); MEAN CORPUSCULAR VOLUME 103.7 fl (80.0-96.0); MONO # 0.8 10^3/uL (0.0-0.8); MONO % 13.4 % (0.0-5.0); NEUTROPHILS # 4.3 10^3/uL (1.5-8.5); NEUTROPHILS % 69.6 % (36.0-66.0); PLATELET COUNT, AUTOMATED 165 10^3/uL (150-450); WHITE BLOOD COUNT 6.2 10^3/uL (4.0-10.0)
[2020-04-16 11:24] LABS: INR 1.08; PROTHROMBIN TIME 14.2 SECONDS (12.5-14.3)
[2020-04-16 11:51] LABS: ALBUMIN 3.1 GM/DL (3.2-5.2); ALT/SGPT 37 U/L (12-78); BILIRUBIN,DIRECT < 0.1 MG/DL (0.0-0.2); BILIRUBIN,TOTAL 0.3 MG/DL (0.2-1.0); BLOOD UREA NITROGEN 18 MG/DL (7-18); CALCIUM LEVEL 8.6 MG/DL (8.8-10.2); CARBON DIOXIDE LEVEL 38 MEQ/L (21-32); CHLORIDE LEVEL 98 MEQ/L (98-107); CK-MB VALUE MASS 1.6 NG/ML (<3.6); CPK CREATINE PHOSPHOKINASE 92 U/L (39-308); CREATININE FOR GFR 0.79 MG/DL (0.70-1.30); GLOMERULAR FILTRATION RATE > 60.0 (>49); GLUCOSE, FASTING 127 MG/DL (70-100); MB/CK RELATIVE INDEX 1.74 (< OR =4); NT-PRO BNP 27 PG/ML (<125); POTASSIUM SERUM 4.3 MEQ/L (3.5-5.1); SODIUM LEVEL 139 MEQ/L (136-145); THYROXINE (T4) 10.1 UG/DL (4.5-12.0); TOTAL PROTEIN 6.6 GM/DL (6.4-8.2); TROPONIN I < 0.02 NG/ML (< 0.10)
[2020-04-16 12:02] LABS: ABG BASE EXCESS 10.1 (-2.0-2.0); ABG HCO3 38.9 MEQ/L (22.0-26.0); ABG O2 SATURATION 97.4 % (95.0-99.0); ABG PARTIAL PRESSURE O2 93.9 mmHg (75.0-100.0); ABG STANDARD HCO3 33.8 MEQ/L (22.0-26.0); ABG TOTAL CO2 41.1 MEQ/L (23.0-31.0); ABG pH (ARTERIAL) 7.337 UNITS (7.350-7.450)
[2020-04-16 12:09] LABS: ABG PARTIAL PRESSURE CO2 74.2 mmHg (35.0-45.0)
--- NOTE | 2020-04-16 12:39 | REP ---
INDICATION: DYSPNEA/COUGH. COMPARISON: 03/12/2020, portable chest. TECHNIQUE: Single AP view performed portably with the patient sitting. FINDINGS: Elevation of the right hemidiaphragm, unchanged. The right lung is otherwise clear. The atelectasis identified in the left costophrenic angle on the comparison study has resolved. There is small curvilinear densities inferiorly in the left lung, nonspecific, atelectasis versus curvilinear scarring. No focal infiltrate or effusion. Cardiac size normal. The selina, mediastinum, and skeletal structures are unremarkable. IMPRESSION: The previously identified atelectasis of the left costophrenic angle has resolved. There are now small curvilinear densities inferiorly in the left lung which could be acute, chronic combination. The lung chaidez are otherwise clear. Elevation of the left hemidiaphragm, unchanged. <Electronically signed by Sunny Ortega > 04/16/20 [id number]
[2020-04-16] MEDS ORDERED: ISOVUE-370 76% 100ML VIAL As Ordered ONE (13:23)
[2020-04-16] MEDS ORDERED: dexameTHASONE 20MG/5ML VIAL (J1100 PER 1MG) IV ONE (13:30)
--- NOTE | 2020-04-16 14:21 | REP ---
INDICATION: hypoxia/shortness of breath. COMPARISON: 03/12/2020. TECHNIQUE: CT angiogram chest performed following the intravenous administration of 100 cc of Isovue 370. Sagittal and coronal reconstruction images are performed. FINDINGS: Lungs: There is right lower lobe consolidation which is stable. There is right middle lobe consolidation which is stable. Previously noted left lower lobe consolidation has improved. There is new subsegmental atelectasis in the left upper lobe. Mediastinum: No adenopathy. Pulmonary arteries: No evidence of pulmonary embolism. Jerrica: No adenopathy. Axilla: No adenopathy. Pleura: No effusion. Heart: Not enlarged. Thoracic aorta: No aneurysm or dissection. Upper abdominal structures: There is elevation of the right hemidiaphragm due to right lung atelectasis. A gastrostomy tube is noted. Visualized osseous structures: There are degenerative changes of the spine. A compression deformity of L1 is unchanged. IMPRESSION: No CT evidence of pulmonary embolism. There is right lower lobe consolidation which is stable. There is right middle lobe consolidation which is stable. Previously noted left lower lobe consolidation has improved. There is new subsegmental atelectasis in the left upper lobe. <Electronically signed by Sunny Whitlock > 04/16/20 [id number]
--- NOTE | 2020-04-16 15:29 | HPEPDOC ---
[facility] Medical History & Physical Date of Admission Apr 16, 2020 Date of Service: Apr 16, 2020 Attending Physician: BOLIVAR SHAIKH DO History and Physical CHIEF COMPLAINT: SOB HISTORY OF PRESENT ILLNESS: Mr. Araiza is a 69 year old male with PMH of hx of SCC of right tonsil s/p chemotherapy radiation, esophageal stricture secondary to radiation s/p EGD dilation, dysphagia with PEG tube placement, COPD, chronic hypoxic respiratory failure on 2 L nasal cannula, hx of PE on anticoagulation, hypothyroidism, CAD, dyslipidemia, and OA presents with SOB and cough since last night. Pt reports a cough producing green sputum that started last night also and wheezing. Pt denies fever, chills, chest pain, and abdominal pain. Pt admits to chronic neck and right ear pain, to which he attributes it to hx of radiation. Patient is a former smoker who quit greater than 10 years ago and does not drink alcohol. Hospitalist team was contacted to admit the patient for admission. PAST MEDICAL HISTORY: History of squamous cell carcinoma of the right tonsil status post chemotherapy radiation Esophageal stricture secondary to radiation, status post EGD with dilation Dysphagia with PEG tube placement COPD Chronic hypoxic respiratory failure, 2 L nasal cannula History of PE Chronic left lower lobe infiltrate Hypothyroidism Anxiety CAD, STEMI, 2018 Dyslipidemia Study of Lyme's disease OA PAST SURGICAL HISTORY: Right hand surgery, 2006 G-tube placement, 2010, 2016 Hiatal hernia repair Chemotherapy/radiation for throat cancer SOCIAL HISTORY: Patient is a former smoker, quit greater than 10 years ago. Denies ETOH use. No ilicit or IV drug use. No recent travel or recent exposure. FAMILY HISTORY: Father: Throat cancer, Carcinomatosis Mother: Cervical cancer, Carcinomatosis Siblings: Lung and breast cancer ALLERGIES: Please see below. REVIEW OF SYSTEMS: CONSTITUTIONAL: Denies fevers, chills and weight changes. HEENT: Admits to chronic right ear pain, neck and throat pain s/p radiation. Pt denies sinus congestion. CARDIOVASCULAR: Denies chest pain, heart palpitations and edema in UE/LE. LUNGS: Admits to SOB, wheezing, and productive cough. GENITOURINARY: Denies hematuria, dysuria and frequency. SKIN: Denies any new rashes, lesions or wounds. MUSCULOSKELETAL: Denies joint pain, calf pain and edema. NEUROLOGICAL: Denies headaches, numbness/tingling and dizziness. PSYCHIATRIC: Denies mood changes. HOME MEDICATIONS: Please see below. PHYSICAL EXAMINATION: VITAL SIGNS: Please see below. GENERAL APPEARANCE: Pt appears comfortable lying in bed. Pt is breathing comfortably on 2L of oxygen. HEENT: PERRL. EOM intact. Cerumen impaction in left ear. No lymphadenopathy. Moist oral mucus membranes. CARDIOVASCULAR: S1S2 present with RRR. No murmurs, rubs or gallops noted. LUNGS: Wheezing appreciated in upper lung chaidez with some mild inspiratory stridor. No rales or rhonchi noted. ABDOMEN: Pt has a PEG tube placed which appears to be leaking. Soft, nontender abdomen with normoactive bowel sounds heard in all 4 quadrants. EXTREMITIES: Paronchyia of great left toe. No edema noted. Equal and bilateral pulses 2+. NEUROLOGICAL: AAOx3. No obvious focal neurologic deficits. Strength 5/5 in bilateral upper and lower extremities. PSYCHIATRIC: Normal mood and affect. LABORATORY DATA: See below. IMAGING: MICROBIOLOGY: Please see below. ASSESSMENT: Mr. Araiza is a 69 y/o male with a PMH of hx of SCC of right onsil s/p chemotherapy radiation, esophageal stricture secondary to radiation s/p EGD dilation, dysphagia with PEG tube placement, COPD, chronic hypoxic respiratory failure on 2 L nasal cannula, hx of PED, hypothyroidism, CAD, dyslipidemia, atrial flutter and OA presents with SOB and cough since last night concerning for COPD exacerbation. Pt is admitted for treatment with likely less than 2 night stay. PLAN: #COPD Exacerbation secondary unclear etiology. -CXR showed previously atelectasis of the left costophrenic angle has resolved. There is now small curvilinear densities inferiorly in the left lung which could be acute, chronic combination. The lung chaidez are otherwise clear. -CT angiogram showed no evidence of pulmonary embolism. -Elevated lactic acid of 2.8. Repeat lactic acid pending. -Procalcitonin <0.05. -Continue 2L nasal cannula. -Given IV dexamethasone 10mg. Will start 40mg prednisone taper PEG. -Albuterol sulfate 2.5mg neg PRN. Albuterol/Ipratropium neb Q6H. -Start Azithromycin 500mg IV Q24H for 3 days #Respiratory acidosis secondary to COPD exacerbation -7.337/74.2/38.9 -Consider repeat ABG if decline in respiratory status. Consider BiPAP. -Continue with management of COPD above. #Paronychia of great left toe -Follows outpatient with podiatry. #Left cerumen impaction -Carbamide Peroxide Otic 3 drops x 4 days #Dyslipidemia -Continue atorvastatin calcium 40mg PEG daily #Hx of PE -Continue Eliquis 5mg PEG BID #Hypothyroidism -Levothyroxine sodium 100 mcg PEG daily DVT PROPHYLAXIS: Chronic anticoagulation s/p PE TEDs/Sequentials CODE STATUS: Full Code DISPOSITION: Anticipate <2 night stay Vital Signs Vital Signs Date Time Temp Pulse Resp B/P (MAP) Pulse Ox O2 Delivery O2 Flow Rate FiO2 04/16/20 11:50 98 Nasal Cannula 2.0 04/16/20 10:51 97.2 92 18 109/56 (73) Laboratory Data Labs 24H Laboratory Tests 2 04/16/20 11:00: Immature Granulocyte % (Auto) 0.5, Neutrophils (%) (Auto) 69.6H, Lymphocytes (%) (Auto) 13.3L, Monocytes (%) (Auto) 13.4H, Eosinophils (%) (Auto) 2.6, Basophils (%) (Auto) 0.6, Neutrophils # (Auto) 4.3, Lymphocytes # (Auto) 0.8L, Monocytes # (Auto) 0.8, Eosinophils # (Auto) 0.2, Basophils # (Auto) 0.0, Nucleated Red Blood Cells % (auto) 0.0, Prothrombin Time 14.2H, Prothromb Time International Ratio 1.08, Blood Gas Bicarbonate Standard 31.2, Venous Blood pH 7.236L, Venous Blood Partial Pressure CO2 95.5H, Venous Blood Partial Pressure O2 40.7, Venous Blood Total Carbon Dioxide 42.6H, Venous Blood HCO3 39.6H, Venous Blood Oxygen Saturation 71.6, Venous Blood Base Excess 8.1H, Anion Gap 3L, Glomerular Filtration Rate > 60.0, Lactic Acid Level 2.8*H, Calcium Level 8.6L, Total Bilirubin 0.3, Direct Bilirubin < 0.1, Aspartate Amino Transf (AST/SGOT) 27, Alanine Aminotransferase (ALT/SGPT) 37, Alkaline Phosphatase 107, Total Creatine Kinase 92, Creatine Kinase MB 1.6, Creatine Kinase MB Relative Index 1.74, Troponin I < 0.02, TX-Occ-H-Type Natriuretic Peptide 27, Total Protein 6.6, Albumin 3.1L, Albumin/Globulin Ratio 0.9, Thyroid Stimulating Hormone (TSH) 3.150, Thyroxine (T4) 10.1 04/16/20 11:42: Blood Gas Bicarbonate Standard 33.8H, Arterial Blood pH 7.337L, Arterial Blood Partial Pressure CO2 74.2*H, Arterial Blood Partial Pressure O2 93.9, Arterial Blood Total CO2 41.1H, Arterial Blood HCO3 38.9H, Arterial Blood Base Excess 10.1H, Arterial Blood Oxygen Saturation 97.4 CBC/BMP Laboratory Tests 04/16/20 11:00 Microbiology Microbiology 04/16/20 Respiratory Virus Panel (PCR) (TATIANA) - Final, Complete 04/16/20 Blood Culture, Received Pending Home Medications Scheduled Apixaban (Eliquis) 5 Mg Tablet, 5 MG FT BID Atorvastatin Calcium (Atorvastatin Calcium) 40 Mg Tablet, 40 MG FT QHS Levothyroxine Sodium (Levothyroxine Sodium) 100 Mcg Tab, 100 MCG FT DAILY Zinc Oxide (Boudreauxs) 16% Oint...g., 1 DOSE TOP BID Apply around PEG tube site Scheduled PRN Albuterol Sulf (Albuterol Sulfate) 2.5 Mg/3 Ml Vial.neb, 1 VIAL NEB Q4H PRN for SOB/WHEEZING Oxycodone Hcl (Oxycodone HCl) 15 Mg Tablet, 30 MG FT Q6H PRN for PAIN Allergies Coded Allergies: latex (Verified Allergy, Intermediate, hives, 02/23/19) A-FIB/CHADSVASC A-FIB History Current/History of A-Fib/PAF?: No Current PO Anticoag Therapy: No GME ATTESTATION GME ATTESTATION My faculty preceptor for this patient encounter was physically present during the encounter and was fully available. All aspects of the patient interview, e xamination, medical decision making process, and medical care plan development were reviewed and approved by the faculty preceptor. The faculty preceptor is aware and concurs with the plan as stated in the body of this note and will attest to such by his/her cosignature. ATTENDING NOTE I, Bolivar Shaikh, performed a history of physical examination of the patient and discussed the management with the resident. I reviewed the resident's note and agree with the documented findings and plan of care. KHADIJAH PETERSEN DO Apr 16, 2020 15:29 BOLIVAR SHAIKH DO Apr 16, 2020 19:27
[2020-04-16] MEDS ORDERED: MAALOX 30 ML SUSP *UDC PO PRN (15:30)
[2020-04-16] MEDS ORDERED: MOM 30ML SUSPENSION UDC PO PRN (15:30)
[2020-04-16] MEDS ORDERED: ACETAMINOPHEN TAB 650MG DOSE (2X325MG) PO PRN (15:30)
[2020-04-16] MEDS ORDERED: ALBUTEROL SULFATE 2.5 MG/0.5 ML INH NEB SOLN NEB PRN (15:30)
[2020-04-16] MEDS: oxyCODONE 5MG TAB GT PRN (17:50)
[2020-04-16 18:20] VITALS: BP 106/66
[2020-04-16] MEDS: IPRATROPIUM 0.5MG/ALBUTEROL 2.5MG INH SOL UD 3ML (DUONEB) NEB SCH (19:20)
[2020-04-16] MEDS: AZITHROMYCIN INJ 500 MG, VIAL MATE ADAPTER 1 EACH in D5W 250 ML IV SCH (19:46)
[2020-04-16] MEDS: CARBAMIDE PEROXIDE 6.5% OTIC SOLN 15ML AS SCH (20:53)
[2020-04-16] MEDS: APIXABAN 5 MG TAB (ELIQUIS) FT SCH (20:54)
[2020-04-16] MEDS: BOUDREAUX'S BUTT PASTE TOP SCH (20:54)
[2020-04-16] MEDS: ATORVASTATIN 20 MG TAB GT SCH (20:54)
[2020-04-16] MEDS: DOCUSATE SODIUM 100MG CAPSULE PO SCH (20:54)
[2020-04-16 22:06] VITALS: BP 116/74
[2020-04-17] VITALS (9 sets, daily range): BP systolic 117–214; BP diastolic 64–106; O2SAT 93–94
[2020-04-17] MEDS: oxyCODONE 5MG TAB GT PRN ×4 (00:31→20:09)
--- NOTE | 2020-04-17 00:33 | ECGEPIP ---
[facility] - ED Test Date: 2020-04-16 Pat Name: JERZY GAVIN Department: Room: - Gender: Male [employer]: chadwick : 1950 Requested By: LYLA Bullock Order Number: [id number] Reading MD: Michael Watkins Measurements Intervals [place] Rate: 89 P: 33 SC: 143 QRS: -3 QRSD: 80 T: 20 QT: 346 QTc: 423 Interpretive Statements SINUS RHYTHM POOR R WAVE PROGRESSION SIMILAR TO 03/12/20 Electronically Signed on 04-17-2020 0:33:03 EST by Michael Watkins
[2020-04-17] MEDS: IPRATROPIUM 0.5MG/ALBUTEROL 2.5MG INH SOL UD 3ML (DUONEB) NEB SCH ×4 (02:00→20:00)
[2020-04-17] MEDS: LEVOTHYROXINE 100MCG TABLET (0.1MG) GT SCH (06:05)
[2020-04-17 07:45] LABS: HEMATOCRIT 41.7 % (42.0-52.0); HEMOGLOBIN 12.7 g/dl (13.5-17.5); MEAN CORPUSCULAR HEMOGLOBIN 31.1 pg (27.0-33.0); MEAN CORPUSCULAR HGB CONC 30.5 g/dl (32.0-36.5); PLATELET COUNT, AUTOMATED 140 10^3/uL (150-450); RED BLOOD COUNT 4.09 10^6/uL (4.30-6.10); WHITE BLOOD COUNT 7.2 10^3/uL (4.0-10.0)
[2020-04-17 08:10] LABS: BLOOD UREA NITROGEN 25 MG/DL (7-18); CALCIUM LEVEL 8.5 MG/DL (8.8-10.2); CARBON DIOXIDE LEVEL 36 MEQ/L (21-32); CHLORIDE LEVEL 99 MEQ/L (98-107); CREATININE FOR GFR 0.92 MG/DL (0.70-1.30); GLOMERULAR FILTRATION RATE > 60.0 (>49); GLUCOSE, FASTING 206 MG/DL (70-100); MAGNESIUM LEVEL 2.4 MG/DL (1.8-2.4); POTASSIUM SERUM 4.8 MEQ/L (3.5-5.1); SODIUM LEVEL 136 MEQ/L (136-145)
[2020-04-17 08:42] LABS: ABG pH (ARTERIAL) 7.339 UNITS (7.350-7.450)
[2020-04-17 08:43] LABS: ABG BASE EXCESS 5.3 (-2.0-2.0); ABG HCO3 32.9 MEQ/L (22.0-26.0); ABG O2 SATURATION 99.2 % (95.0-99.0); ABG PARTIAL PRESSURE O2 145.9 mmHg (75.0-100.0); ABG STANDARD HCO3 29.3 MEQ/L (22.0-26.0); ABG TOTAL CO2 34.9 MEQ/L (23.0-31.0)
[2020-04-17 08:44] LABS: ABG PARTIAL PRESSURE CO2 62.6 mmHg (35.0-45.0)
[2020-04-17 08:45] LABS: BASO % 0.1 % (0.0-1.0); HEMATOCRIT 41.6 % (42.0-52.0); HEMOGLOBIN 12.7 g/dl (13.5-17.5); LYMPH # 0.9 10^3/uL (1.5-5.0); LYMPH % 8.2 % (24.0-44.0); MEAN CORPUSCULAR HEMOGLOBIN 30.7 pg (27.0-33.0); MEAN CORPUSCULAR HGB CONC 30.5 g/dl (32.0-36.5); MEAN CORPUSCULAR VOLUME 100.5 fl (80.0-96.0); MONO # 0.6 10^3/uL (0.0-0.8); MONO % 5.3 % (0.0-5.0); NEUTROPHILS # 9.7 10^3/uL (1.5-8.5); NEUTROPHILS % 85.9 % (36.0-66.0); PLATELET COUNT, AUTOMATED 184 10^3/uL (150-450); RED BLOOD COUNT 4.14 10^6/uL (4.30-6.10); WHITE BLOOD COUNT 11.3 10^3/uL (4.0-10.0)
--- NOTE | 2020-04-17 08:50 | REP ---
INDICATION: AMS. COMPARISON: 04/16/2020. TECHNIQUE: Portable chest, AP view with the patient upright. FINDINGS: The curvilinear densities inferiorly in the left lung are unchanged. These could be acute, chronic or combination. Left lung is otherwise clear and unchanged. Elevation of the right hemidiaphragm is unchanged. Right lung is otherwise clear. The selina, mediastinum, and skeletal structures are unremarkable. IMPRESSION: No interval change. <Electronically signed by Sunny Ortega > 04/17/20 [id number]
[2020-04-17 09:18] LABS: ALBUMIN 2.9 GM/DL (3.2-5.2); ALT/SGPT 30 U/L (12-78); BILIRUBIN,TOTAL 0.3 MG/DL (0.2-1.0); BLOOD UREA NITROGEN 26 MG/DL (7-18); CALCIUM LEVEL 8.1 MG/DL (8.8-10.2); CARBON DIOXIDE LEVEL 34 MEQ/L (21-32); CHLORIDE LEVEL 100 MEQ/L (98-107); CK-MB VALUE MASS 2.2 NG/ML (<3.6); CPK CREATINE PHOSPHOKINASE 97 U/L (39-308); CREATININE FOR GFR 0.83 MG/DL (0.70-1.30); GLOMERULAR FILTRATION RATE > 60.0 (>49); GLUCOSE, FASTING 202 MG/DL (70-100); MB/CK RELATIVE INDEX 2.27 (< OR =4); POTASSIUM SERUM 4.6 MEQ/L (3.5-5.1); SODIUM LEVEL 138 MEQ/L (136-145); TOTAL PROTEIN 6.4 GM/DL (6.4-8.2); TROPONIN I < 0.02 NG/ML (< 0.10)
[2020-04-17 09:19] LABS: PROLACTIN 34.4 NG/ML (2.1-17.7)
[2020-04-17] MEDS: DOCUSATE SODIUM 100MG CAPSULE PO SCH ×2 (10:44→20:09)
[2020-04-17] MEDS: APIXABAN 5 MG TAB (ELIQUIS) FT SCH ×2 (10:53→20:09)
[2020-04-17] MEDS: BOUDREAUX'S BUTT PASTE TOP SCH ×2 (12:08→20:10)
[2020-04-17] MEDS: CARBAMIDE PEROXIDE 6.5% OTIC SOLN 15ML AS SCH ×2 (12:08→20:09)
[2020-04-17 13:03] LABS: CK-MB VALUE MASS 1.6 NG/ML (<3.6); CPK CREATINE PHOSPHOKINASE 84 U/L (39-308); TROPONIN I < 0.02 NG/ML (< 0.10)
--- NOTE | 2020-04-17 13:26 | IPNPDOC ---
Text Note Date of Service The patient was seen on 04/17/20. NOTE SUBJECTIVE: Mr. Araiza was seen and examined at bedside this morning. Upon examination, he was comfortably sitting in bed, on 3L of O2 and started answering questions appropriately. He then stopped answering, began exhibiting a slight resting tremor, and there was increasing perioral cyanosis with a decline in O2 saturation. At this time a non-rebreather mask was used at 15 L/min and a rapid assessment was called. His O2 saturation quickly increased to 95-100%. Pt had radial and pedal pulses throughout entire event. Once pt became responsive, he appeared mildly catatonic in arms and legs with bilateral, equal strength in extremities. Stat labs were drawn and showed elevated prolactin level of 34.4, elevated lactic acid level of2.5, troponins were negative, mildly decreased calcium of 8.1, and ECG was largely unchanged in comparison to previous. Pt is being transferred to PCU for closer monitoring on telemetry. Repeat prolactin level pending for 24 hrs after event. OBJECTIVE: VITAL SIGNS: Please see below. CONSTITUTIONAL: Pt was lying comfortably in bed. Pt became unresponsive and went into respiratory distress during examination. HEENT: PERRL. EOM intact. No lymphadenopathy noted. CV: S1S2 present. RRR. No murmurs, rubs or gallops. RESPIRATORY: Clear auscultation in all lung chaidez. No wheezing, rales or rhonchi appreciated. ABDOMEN: Pt has a PEG tube placed which appears to be leaking. Soft, nontender abdomen with normoactive bowel sounds heard in all 4 quadrants. EXTREMITIES: Paronchyia of great left toe. No edema noted. Equal and bilateral pulses 2+. NEUROLOGICAL: Pt appeared mildly catatonic after event. AAOx3. No obvious focal neurologic deficits. Strength 5/5 in bilateral upper and lower extremities. PSYCHIATRIC: Normal mood and affect. ASSESSMENT: Mr. 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 At approximately 8 am this morning, Mr. Araiza became hypoxic and unresponsive during examination. Events were described above and patient was transferred to PCU for closer monitoring. PLAN: #Acute hypoxic event secondary to seizure vs subclavian steal syndrome vs. laryngeal spasm -Elevated prolactin level of 34.4. Repeat level of prolactin at 8:20 am on 04/18/2020, 24 hrs after first draw. -Elevated lactic acid level of 2.5. Repeat lactic pending. -Troponins were negative. ECG was largely unchanged in comparison to previous. Repeat cardiac markers panel pending. -ABG is 7.339/62.6/32.9 which showed improvement from yesterday. -Stat portable CXR was unremarkable from previous. -Pt currently on 3.5 L/min nasal cannula and is being transferred to the PCU for closer monitoring on tele. #COPD Exacerbation secondary unclear etiology. - CXR showed previously atelectasis of the left costophrenic angle has resolved. There is now small curvilinear densities inferiorly in the left lung which could be acute, chronic combination. The lung chaidez are otherwise clear. -CT angiogram showed no evidence of pulmonary embolism. -Elevated lactic acid level of 2.5. Repeat lactic pending. -Procalcitonin <0.05. -Pt now on 3L nasal cannula. -Given IV dexamethasone 10mg. Will give addition 40 mg IV today with plan to transition to PO prednisone and taper on discharge. -Albuterol sulfate 2.5mg neg PRN. Albuterol/Ipratropium neb Q6H. -Continue Azithromycin 500mg IV Q24H Day 2/3 #Respiratory acidosis secondary to COPD exacerbation -Improved. Repeat ABG is now 7.339/62.6/32.9 -Consider repeat ABG if decline in respiratory status. Consider BiPAP. -Continue with management of COPD above. #Paronychia of great left toe -Follows outpatient with podiatry. #Left cerumen impaction -Carbamide Peroxide Otic 3 drops x 4 days #Dyslipidemia -Continue atorvastatin calcium 40mg PEG daily #Hx of PE -Continue Eliquis 5mg PEG BID #Hypothyroidism -Levothyroxine sodium 100 mcg PEG daily DVT PROPHYLAXIS: Chronic anticoagulation s/p PE TEDs/Sequentials VS,Fishbone, I+O VS, Fishbone, I+O Laboratory Tests 04/17/20 07:20 12/8/20 08:22 Vital Signs Date Time Temp Pulse Resp B/P (MAP) Pulse Ox O2 Delivery O2 Flow Rate FiO2 04/17/20 13:09 18 Nasal Cannula 4.0 04/17/20 10:00 97.9 80 139/76 (97) 96 I&O- Last 24 Hours up to 6 AM 04/17/20 06:00 Intake Total 0 ml Output Total 775 ml Balance -775 ml GME ATTESTATION GME ATTESTATION My faculty preceptor for this patient encounter was physically present during the encounter and was fully available. All aspects of the patient interview, examination, medical decision making process, and medical care plan development were reviewed and approved by the faculty preceptor. The faculty preceptor is a villar and concurs with the plan as stated in the body of this note and will attest to such by his/her cosignature. KHADIJAH PETERSEN DO Apr 17, 2020 13:26
[2020-04-17] MEDS ORDERED: methylPREDNISolone 40MG 1ML VIAL IV ONE (13:30)
[2020-04-17] MEDS: AZITHROMYCIN INJ 500 MG, VIAL MATE ADAPTER 1 EACH in D5W 250 ML IV SCH (17:30)
[2020-04-17] MEDS: ATORVASTATIN 20 MG TAB GT SCH (20:09)
--- NOTE | 2020-04-17 21:44 | ECGEPIP ---
[facility] Test Date: 2020-04-17 Pat Name: JERZY GAVIN Department: Room: [place] [address] Gender: Male [employer]: : 1950 Requested By: MARIA L FOX Order Number: [id number] Reading MD: Nestor Hamilton Measurements Intervals [place] Rate: 95 P: 21 CT: 146 QRS: -7 QRSD: 82 T: 31 QT: 311 QTc: 392 Interpretive Statements SINUS RHYTHM Poor R wave progression Nonspecific ST abnormalities. Similar in comparison to 04/16/2020. Electronically Signed on 04-17-2020 21:43:54 EST by Nestor Hamilton
[2020-04-17] MEDS ORDERED: NALOXONE INJ 0.4MG/1ML VIAL (J2310 PER 1MG) IV STA ×2 (22:02→22:11)
[2020-04-17 22:17] LABS: ABG BASE EXCESS 2.1 (-2.0-2.0); ABG HCO3 32.9 MEQ/L (22.0-26.0); ABG O2 SATURATION 99.6 % (95.0-99.0); ABG PARTIAL PRESSURE O2 222.1 mmHg (75.0-100.0); ABG STANDARD HCO3 26.4 MEQ/L (22.0-26.0); ABG TOTAL CO2 35.6 MEQ/L (23.0-31.0)
[2020-04-17 22:19] LABS: ABG PARTIAL PRESSURE CO2 86.8 mmHg (35.0-45.0); ABG pH (ARTERIAL) 7.197 UNITS (7.350-7.450)
--- NOTE | 2020-04-17 23:21 | REPVR ---
PROCEDURE INFORMATION: Exam: XR Chest, 1 View Exam date and time: 04/17/2020 10:26 PM Age: 69 years old Clinical indication: Shortness of breath; Additional info: SOB TECHNIQUE: Imaging protocol: XR of the chest Views: 1 view. COMPARISON: CT PORTABLE CHEST X-RAY 04/17/2020 8:28 AM FINDINGS: Lungs: The right lung is unchanged. Slight left base clearing since the prior study with some residual left infrahilar atelectasis or scar. Pleural space: Question of minimal left pleural effusion. Heart/Mediastinum: The heart and mediastinum are unchanged. Diaphragm: Elevation of the right hemidiaphragm which is similar to the prior study. Bones/joints: Unremarkable. IMPRESSION: 1. Slight left base clearing since a study done earlier in the day. 2. Minimal left pleural effusion is noted since the prior study. 3. Otherwise stable chest. Electronically signed by: Neftaly Evangelista On 04/17/2020 23:21:25 PM
[2020-04-18] VITALS (20 sets, daily range): BP systolic 100–128; BP diastolic 50–73; O2SAT 84–99
--- NOTE | 2020-04-18 00:33 | IPNPDOC ---
Date Seen The patient was seen on 04/18/20. Progress Note INTERIM PROGRESS NOTE I was called urgently by nursing to see this patient at 2200, as nursing found him to be apneic, unresponsive, diaphoretic with respirations 6 and appearing figueroa in color. Nursing reports he was saturating 32% on 3 L nasal cannula so he was given 10 L on nonrebreather mask. Upon my exam the patient was unresponsive, saturating in the low 90s on 10 L nonrebreather mask. He sounded very rhonchorous. His blood pressure was mildly elevated at 144/92. Heart rate was 82. Blood sugar was checked and found to be 198. To my knowledge a rapid response was called on this patient earlier in the day due to similar apneic episode. The patient did not require any mechanical ventilation, as he became responsive after about 1 minute. I ordered stat ABG to be done: 7.197/86.8/222 (at the time this was drawn the patient was on 10 L nonrebreather mask) Chest x-ray was done which showed no changes from earlier in the day. Nursing reported that he had received oxycodone 30 mg earlier in the evening. The patient was given 2 doses of 0.1 mg IV Narcan and subsequently awoke and was responsive. I recommended to nursing to continue with oxygen titration orders as prescribed, with continuous pulse oximetry. I will order CT head to rule out any process that may be causing these apneic episodes, and recommend the patient be worked up for obstructive sleep apnea in the near future. Would recommend also holding off on sedating pain medications as this seems to trigger his apneic episodes. I will recheck ABG in 2 hours after patient has been titrated back down on nasal cannula. VS, I&O, 24H, Fishbone Vital Signs/I&O Vital Signs Date Time Temp Pulse Resp B/P (MAP) Pulse Ox O2 Delivery O2 Flow Rate FiO2 04/18/20 00:00 97.6 77 16 100/50 (67) 95 Non-Rebreather 10.0 I&O- Last 24 Hours up to 6 AM 04/18/20 06:00 Intake Total 1000 ml Output Total 450 ml Balance 550 ml Laboratory Data 24H LABS Laboratory Tests 2 04/17/20 07:20: Nucleated Red Blood Cells % (auto) 0.0, Anion Gap 1L, Glomerular Filtration Rate > 60.0, Calcium Level 8.5L, Magnesium Level 2.4 04/17/20 08:22: Nucleated Red Blood Cells % (auto) 0.0, Anion Gap 4L, Glomerular Filtration Rate > 60.0, Calcium Level 8.1L, Immature Granulocyte % (Auto) 0.5, Neutrophils (%) (Auto) 85.9H, Lymphocytes (%) (Auto) 8.2L, Monocytes (%) (Auto) 5.3H, Eosinophils (%) (Auto) 0.0, Basophils (%) (Auto) 0.1, Neutrophils # (Auto) 9.7H, Lymphocytes # (Auto) 0.9L, Monocytes # (Auto) 0.6, Eosinophils # (Auto) 0.0, Basophils # (Auto) 0.0, Lactic Acid Level 2.5*H, Total Bilirubin 0.3, Aspartate Amino Transf (AST/SGOT) 23, Alanine Aminotransferase (ALT/SGPT) 30, Alkaline Phosphatase 92, Total Creatine Kinase 97, Creatine Kinase MB 2.2, Creatine Kinas e MB Relative Index 2.27, Troponin I < 0.02, Total Protein 6.4, Albumin 2.9L, Albumin/Globulin Ratio 0.8, Prolactin 34.4H 04/17/20 08:26: Blood Gas Bicarbonate Standard 29.3H, Arterial Blood pH 7.339L, Arterial Blood Partial Pressure CO2 62.6*H, Arterial Blood Partial Pressure O2 145.9H, Arterial Blood Total CO2 34.9H, Arterial Blood HCO3 32.9H, Arterial Blood Base Excess 5.3H, Arterial Blood Oxygen Saturation 99.2H 04/17/20 12:18: Lactic Acid Level 1.8, Total Creatine Kinase 84, Creatine Kinase MB 1.6, Creatine Kinase MB Relative Index 1.90, Troponin I < 0.02 04/17/20 12:43: Lactic Acid Followup at 4 Hours 1.8 04/17/20 21:58: Bedside Glucose (Misc Panel) 298H 04/17/20 22:06: Blood Gas Bicarbonate Standard 26.4H, Arterial Blood pH 7.197*L, Arterial Blood Partial Pressure CO2 86.8*H, Arterial Blood Partial Pressure O2 222.1H, Arterial Blood Total CO2 35.6H, Arterial Blood HCO3 32.9H, Arterial Blood Base Excess 2.1H, Arterial Blood Oxygen Saturation 99.6H CBC/BMP Laboratory Tests 04/17/20 07:20 04/17/20 08:22 Microbiology Microbiology 04/16/20 Blood Culture - Preliminary, Resulted No growth after 24 hours . All specim... 04/16/20 Respiratory Virus Panel (PCR) (TATIANA) - Final, Complete 04/16/20 Blood Culture - Preliminary, Resulted No growth after 24 hours . All specim... GME ATTESTATION ATTENDING NOTE Family Medicine Attending Note: I was present on site to supervise Grazyna Copeland DO (PGY-3). We discussed the history and exam. I confirmed the new elements during my [id number] encounter with the patient. We conferred on the assessment and plan; I agree with the note as documented. I strongly suggest we put significant effort into getting a nocturnal oximetry done tomorrow and diagnosing what I strongly believe his obstructive sleep apnea. (e commerce solution architect) GRAZYNA COPELAND MD Apr 18, 2020 00:31 Donal Cummins MD Apr 18, 2020 05:10
[2020-04-18] MEDS: IPRATROPIUM 0.5MG/ALBUTEROL 2.5MG INH SOL UD 3ML (DUONEB) NEB SCH ×4 (01:05→19:53)
[2020-04-18 01:10] LABS: ABG BASE EXCESS 4.6 (-2.0-2.0); ABG HCO3 33.2 MEQ/L (22.0-26.0); ABG PARTIAL PRESSURE CO2 70.2 mmHg (35.0-45.0); ABG PARTIAL PRESSURE O2 54.4 mmHg (75.0-100.0); ABG STANDARD HCO3 28.4 MEQ/L (22.0-26.0); ABG TOTAL CO2 35.4 MEQ/L (23.0-31.0); ABG pH (ARTERIAL) 7.293 UNITS (7.350-7.450)
[2020-04-18] MEDS: LEVOTHYROXINE 100MCG TABLET (0.1MG) GT SCH (05:25)
[2020-04-18 05:55] LABS: HEMATOCRIT 38.5 % (42.0-52.0); HEMOGLOBIN 11.5 g/dl (13.5-17.5); MEAN CORPUSCULAR HEMOGLOBIN 30.4 pg (27.0-33.0); MEAN CORPUSCULAR HGB CONC 29.9 g/dl (32.0-36.5); MEAN CORPUSCULAR VOLUME 101.9 fl (80.0-96.0); PLATELET COUNT, AUTOMATED 144 10^3/uL (150-450); RED BLOOD COUNT 3.78 10^6/uL (4.30-6.10); WHITE BLOOD COUNT 19.1 10^3/uL (4.0-10.0)
[2020-04-18] MEDS ORDERED: FLUBLOK(EGG FREE)(QUAD)INFLUENZA VACC 0.5ML SYRINGE 18YRS & OLDER IM ONE (06:00)
[2020-04-18 06:19] LABS: ALBUMIN 2.8 GM/DL (3.2-5.2); ALT/SGPT 29 U/L (12-78); BILIRUBIN,TOTAL 0.2 MG/DL (0.2-1.0); BLOOD UREA NITROGEN 28 MG/DL (7-18); CALCIUM LEVEL 8.5 MG/DL (8.8-10.2); CARBON DIOXIDE LEVEL 39 MEQ/L (21-32); CHLORIDE LEVEL 98 MEQ/L (98-107); CREATININE FOR GFR 0.88 MG/DL (0.70-1.30); GLOMERULAR FILTRATION RATE > 60.0 (>49); GLUCOSE, FASTING 124 MG/DL (70-100); POTASSIUM SERUM 4.9 MEQ/L (3.5-5.1); SODIUM LEVEL 135 MEQ/L (136-145); TOTAL PROTEIN 6.4 GM/DL (6.4-8.2)
[2020-04-18] MEDS ORDERED: methylPREDNISolone 40MG 1ML VIAL IV ONE (09:00)
[2020-04-18] MEDS: DOCUSATE SODIUM 100MG CAPSULE PO SCH ×2 (10:21→21:00)
[2020-04-18] MEDS: LIDOCAINE 5% (LIDODERM) PATCH TD SCH (10:21)
[2020-04-18] MEDS: oxyCODONE 5MG TAB GT PRN ×3 (10:22→23:22)
[2020-04-18] MEDS: APIXABAN 5 MG TAB (ELIQUIS) FT SCH ×2 (10:23→21:28)
[2020-04-18] MEDS: BOUDREAUX'S BUTT PASTE TOP SCH ×2 (10:24→21:28)
[2020-04-18] MEDS: CARBAMIDE PEROXIDE 6.5% OTIC SOLN 15ML AS SCH ×2 (10:24→21:28)
--- NOTE | 2020-04-18 11:17 | IPNPDOC ---
Text Note Date of Service The patient was seen on 04/18/20. NOTE SUBJECTIVE: Mr. Araiza was seen and examined at bedside this morning. Overnight, Mr. Araiza had another apneic event in which he became unresponsive, and diaphore tic with respirations 6 and appearing figueroa in color. Nursing reports he was saturating 32% on 3 L nasal cannula so he was given 10 L on nonrebreather mask. He then started saturating in the low 90s on 10 L nonrebreather mask. He sounded very rhonchorous. His blood pressure was mildly elevated at 144/92. Heart rate was 82. Blood sugar was checked and found to be 198. He became responsive after about 1 minute. Nursing reported that he had received oxycodone 30 mg earlier in the evening and was given 2 doses of 0.1 mg IV Narcan and subsequently awoke and was responsive. Stat ABG during this episode was 7.197/86.8/222 and stat CXR showed no changes from earlier in the day. This morning on examination, he stated he feels better. He denies any sort of aura preceding these episodes. He just remembers waking up afterwards. Pt denies confusion and dizziness before or after episode. Pt denies these episodes at home and does report a similar event when admitted to a hospital in [place]. Pt reports chronic pain in neck and ear so his home morphine will be restarted. Pt is currently on high flow nasal cannula at 10 L/min with O2 saturation of 94- 96%. OBJECTIVE: VITAL SIGNS: Please see below. CONSTITUTIONAL: Pt was lying comfortably in bed. No respiratory distress. HEENT: PERRL. EOM intact. No lymphadenopathy noted. CV: S1S2 present. RRR. No murmurs, rubs or gallops. RESPIRATORY: Clear auscultation in all lung chaidez. No wheezing, rales or rhonchi appreciated. ABDOMEN: Pt has a PEG tube placed. Soft, nontender abdomen with normoactive bowel sounds heard in all 4 quadrants. EXTREMITIES: Paronchyia of great left toe. +1 pitting edema in bilateral LE. Equal and bilateral pulses 2+. NEUROLOGICAL: AAOx3. No obvious focal neurologic deficits. Strength 5/5 in bilateral upper and lower extremities. PSYCHIATRIC: Normal mood and affect. ASSESSMENT: Mr. 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 PLAN: #Acute hypoxic respiratory failure secondary to seizure vs subclavian steal syndrome vs. laryngeal spasm vs. BEKAH -Elevated prolactin level of 34.4 on 04/17/2020 following first apneic episode. Repeat prolactin level 5.8 on 04/18/2020. Consider seizure as possible etiology. EEG is ordered and pending. -CT Head pending -Normal lactic acid level of 1.8. -Troponins remain negative. ECG was largely unchanged in comparison to previous. Repeat cardiac markers panel pending. -Most recent ABG of 7.293/70.2/33.2. -Stat portable CXR was unremarkable from previous. -Pt currently on high flow 10 L/min nasal cannula with oxygen saturation of 94- 96% -Nocturnal oximetry pending. -Consider pulmonology consultation. #COPD Exacerbation secondary unclear etiology. -CXR showed previously atelectasis of the left costophrenic angle has resolved. There is now small curvilinear densities inferiorly in the left lung which could be acute, chronic combination. The lung chaidez are otherwise clear. -CT angiogram showed no evidence of pulmonary embolism. -Procalcitonin <0.05. -Pt now on high flow 10 L/min nasal cannula with oxygen saturation of 94-96% -Given IV dexamethasone 10mg. Will give addition 40 mg IV today with plan to transition to GT prednisone and taper on discharge. -Albuterol sulfate 2.5mg neg PRN. Albuterol/Ipratropium neb Q6H. -Continue Azithromycin 500mg IV Q24H Day 2/3 #Respiratory acidosis secondary to COPD exacerbation -Most recent ABG of 7.293/70.2/33.2. -Consider repeat ABG if decline in respiratory status. Consider BiPAP. -Continue with management of COPD above. #Paronychia of great left toe -Follows outpatient with podiatry. #Left cerumen impaction -Carbamide Peroxide Otic 3 drops x 4 days #Dyslipidemia -Continue atorvastatin calcium 40mg PEG daily #Hx of PE -Continue Eliquis 5mg PEG BID #Hypothyroidism -Levothyroxine sodium 100 mcg PEG daily DVT PROPHYLAXIS: Chronic anticoagulation s/p PE TEDs/Sequentials DISPOSITION: PT/OT eval. Pending nocturnal oximetry study. Pending clinical improvement. Monitor for hypoxic events. VS,Fishbone, I+O VS, Fishbone, I+O Laboratory Tests 04/18/20 05:31 Vital Signs Date Time Temp Pulse Resp B/P (MAP) Pulse Ox O2 Delivery O2 Flow Rate FiO2 04/18/20 10:22 20 04/18/20 08:05 10.0 04/18/20 08:00 97.6 90 124/73 (90) 99 High Flow Cannula I&O- Last 24 Hours up to 6 AM 04/18/20 06:00 Intake Total 1000 ml Output Total 900 ml Balance 100 ml GME ATTESTATION GME ATTESTATION My faculty preceptor for this patient encounter was physically present during the encounter and was fully available. All aspects of the patient interview, examination, medical decision making process, and medical care plan development were reviewed and approved by the faculty preceptor. The faculty preceptor is aware and concurs with the plan as stated in the body of this note and will attest to such by his/her cosignature. KHADIJAH PETERSEN DO Apr 18, 2020 11:17
[2020-04-18] MEDS: AZITHROMYCIN INJ 500 MG, VIAL MATE ADAPTER 1 EACH in D5W 250 ML IV SCH (18:17)
[2020-04-18] MEDS ORDERED: **NOTE PATIENT COMMENT** MISC XX SCH (21:00)
[2020-04-18] MEDS: ATORVASTATIN 20 MG TAB GT SCH (21:27)
[2020-04-19] VITALS (7 sets, daily range): BP systolic 112–144; BP diastolic 62–99; O2SAT 93–96
[2020-04-19] MEDS: IPRATROPIUM 0.5MG/ALBUTEROL 2.5MG INH SOL UD 3ML (DUONEB) NEB SCH ×3 (02:00→14:00)
[2020-04-19] MEDS: LEVOTHYROXINE 100MCG TABLET (0.1MG) GT SCH (06:20)
[2020-04-19] MEDS: oxyCODONE 5MG TAB GT PRN ×2 (06:40→14:48)
[2020-04-19 08:29] LABS: HEMATOCRIT 38.8 % (42.0-52.0); HEMOGLOBIN 12.2 g/dl (13.5-17.5); MEAN CORPUSCULAR HEMOGLOBIN 31.7 pg (27.0-33.0); MEAN CORPUSCULAR HGB CONC 31.4 g/dl (32.0-36.5); MEAN CORPUSCULAR VOLUME 100.8 fl (80.0-96.0); PLATELET COUNT, AUTOMATED 140 10^3/uL (150-450); RED BLOOD COUNT 3.85 10^6/uL (4.30-6.10)
[2020-04-19] MEDS: DOCUSATE SODIUM 100MG CAPSULE PO SCH ×2 (09:00→09:52)
[2020-04-19 09:16] LABS: BLOOD UREA NITROGEN 26 MG/DL (7-18); CALCIUM LEVEL 8.6 MG/DL (8.8-10.2); CARBON DIOXIDE LEVEL 37 MEQ/L (21-32); CHLORIDE LEVEL 99 MEQ/L (98-107); CREATININE FOR GFR 0.84 MG/DL (0.70-1.30); GLOMERULAR FILTRATION RATE > 60.0 (>49); GLUCOSE, FASTING 149 MG/DL (70-100); POTASSIUM SERUM 4.1 MEQ/L (3.5-5.1); SODIUM LEVEL 138 MEQ/L (136-145)
[2020-04-19] MEDS: LIDOCAINE 5% (LIDODERM) PATCH TD SCH (09:51)
[2020-04-19] MEDS: BOUDREAUX'S BUTT PASTE TOP SCH (09:51)
[2020-04-19] MEDS: APIXABAN 5 MG TAB (ELIQUIS) FT SCH (09:52)
[2020-04-19] MEDS: CARBAMIDE PEROXIDE 6.5% OTIC SOLN 15ML AS SCH (09:52)
--- NOTE | 2020-04-19 10:44 | DS.PDOC ---
Discharge Summary General Date of Admission Apr 17, 2020 at 18:44 Date of Discharge Apr 19, 2020 Attending Physician: EDUAR SARABIA MD Discharge Summary PROCEDURES PERFORMED DURING STAY: None ADMITTING DIAGNOSES: COPD exacerbation secondary to unclear etiology Respiratory acidosis secondary to COPD exacerbation Paronychia of left great toe Left cerumen impaction Dyslipidemia History of PE Hypothyroid DISCHARGE DIAGNOSES: Acute hypoxic respiratory failure, suspect laryngospasm COPD exacerbation Respiratory acidosis secondary to COPD exacerbation Paronychia of left great toe Left cerumen impaction Dyslipidemia History of PE Hypothyroid COMPLICATIONS/CHIEF COMPLAINT: COPD With Acute Exacerbation. HISTORY OF PRESENT ILLNESS: Mr. 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 Pt reports a cough producing green sputum that started last night also and wheezing. Pt denies fever, chills, chest pain, and abdominal pain. Pt admits to chronic neck and right ear pain, to which he attributes it to hx of radiation. Patient is a former smoker who quit greater than 10 years ago and does not drink alcohol. Hospitalist team was contacted to admit the patient for admission. HOSPITAL COURSE: Patient was admitted to the floor for suspected COPD exacerbation. His IV steroids were continued and he was started on azithromycin and scheduled nebulizers. Overnight, patient's respiratory status appeared to improve and he was found to be maintaining appropriate saturation on his home 2 L via NC. While patient was being examined on the morning of 04/17/20, patient was noted to have a witnessed apneic episode with hypoxia. Patient became unresponsive for approximately 30 seconds. A RAT was called and he was placed on a nonrebreather and came to without any sequelae. Patient reports this has happened intermi ttently in the past. He denied any aura-like symptoms. Suspect laryngospasm and/or mucus plugging to be the most likely cause. CBC, CMP, cardiac markers, EKG, lactic acid, ABG and prolactin were drawn at that time. Patient was transferred to PCU with telemetry. Prolactin was found to be elevated. Repeat performed the next day was within normal limits. Question as to whether this may have been a neurologic/seizure. EEG was ordered and is to be performed prior to patient's discharge. Other than the prolactin, aforementioned laboratory studies were found to be within normal limits. Later that evening, patient had a similar episode occur in which he went apneic and hypoxic for approximately 30 seconds. Throughout the episode, patient's blood pressure remained within normal limits, though his pulse ox did dip into the 30's. No significant findings on telemetry. Patient's white count did increase though this is likely secondary to steroid- induced demarginalization. Patient's breathing status improved. He has remained on nasal cannula 2 L for 24 hours. Patient will have his EEG performed this afternoon and subsequently be discharged thereafter. It is extremely important that patient follows up with his primary care provider both for hospital follow- up and to continue workup in regards to his apneic events. PCP to consider possible ENT referral for further workup. In regards to his COPD exacerbation, patient is to continue his home dose of steroids, nebulizers as needed. The above was discussed with the patient who is in agreement with the discharge plan. DISCHARGE MEDICATIONS: Please see below. ALLERGIES: Latex PHYSICAL EXAMINATION ON DISCHARGE: VITAL SIGNS: Please see below. CONSTITUTIONAL: Pt was lying comfortably in bed. No respiratory distress. HEENT: PERRL. EOM intact. No lymphadenopathy noted. CV: S1S2 present. RRR. No murmurs, rubs or gallops. RESPIRATORY: Clear auscultation in all lung chaidez. No wheezing, rales or rhonchi appreciated. ABDOMEN: Pt has a PEG tube placed. Soft, nontender abdomen with normoactive bowel sounds heard in all 4 quadrants. EXTREMITIES: Parenchyma of great left toe, wrapped. +2 pitting edema in bilateral LE. Equal and bilateral pulses 2+. NEUROLOGICAL: AAOx3. No obvious focal neurologic deficits. Strength 5/5 in bilateral upper and lower extremities. PSYCHIATRIC: Normal mood and affect. LABORATORY DATA: Please see below. IMAGING: Chest x-ray (04/16/20): Previous identified atelectasis of the left costophrenic angle has resolved. There are no small curvilinear densities inferiorly in the left lung which could be acute, chronic combination. The lung chaidez otherwise clear elevation of left hemidiaphragm, unchanged. CT angiogram (04/16/20): No CT evidence of pulmonary embolism. There is right lower lobe consolidation which is stable. There is right middle lobe consolidation which is stable. Producing of the left lower lobe consolidation has improved. There is new subsegmental atelectasis in the left upper lobe. Chest x-ray (04/17/20): No interval change. Chest x-ray (04/17/20): Slight left base clearing since a study done earlier in the day. Minimal left pleural effusion is noted since prior study. Otherwise stable chest. PROGNOSIS: Fair ACTIVITY: As tolerated DIET: Continue GT feeding at 50 mls DISCHARGE PLAN: Follow-up with PCP Follow-up with Podiatry for your paronychia DISPOSITION: Home with self-care, patients son provides 01/12 care DISCHARGE INSTRUCTIONS: Please follow-up with the primary care provider within 5 days. This is extremely important as a regards to EEG results and further workup regarding your apneic events. Please keep your scheduled appointment with podiatry in regards to your left great toe paronychia. Please return to the ED should difficulty breathing return. Thank you for allowing us to participate in your care. DISCHARGE CONDITION: Stable TIME SPENT ON DISCHARGE: Greater than 35 minutes. Vital Signs/I&Os Vital Signs Date Time Temp Pulse Resp B/P (MAP) Pulse Ox O2 Delivery O2 Flow Rate FiO2 04/19/20 08:00 97.8 104 20 144/99 (114) 91 High Flow Cannula 10.0 I&O- Last 24 Hours up to 6 AM 04/19/20 05:59 Intake Total 0 ml Output Total 1250 ml Balance -1250 ml Laboratory Data Labs 24H Laboratory Tests 2 04/19/20 08:06: Nucleated Red Blood Cells % (auto) 0.0, Anion Gap 2L, Glomerular Filtration Rate > 60.0, Calcium Level 8.6L CBC/BMP Laboratory Tests 04/19/20 08:06 Microbiology Microbiology 04/16/20 Blood Culture - Preliminary, Resulted No Growth after 48 hours. All Specime... 04/16/20 Respiratory Virus Panel (PCR) (TATIANA) - Final, Complete 04/16/20 Blood Culture - Preliminary, Resulted No Growth after 48 hours. All Specime... Discharge Medications Scheduled Apixaban (Eliquis) 5 Mg Tablet, 5 MG FT BID, (Reported) Atorvastatin Calcium (Atorvastatin Calcium) 40 Mg Tablet, 40 MG FT QHS, (Report ed) Levothyroxine Sodium (Levothyroxine Sodium) 100 Mcg Tab, 100 MCG FT DAILY, (Reported) Zinc Oxide (Boudreauxs) 16% Oint...g., 1 DOSE TOP BID Apply around PEG tube site Scheduled PRN Albuterol Sulf (Albuterol Sulfate) 2.5 Mg/3 Ml Vial.neb, 1 VIAL NEB Q4H PRN for SOB/WHEEZING, (Reported) Oxycodone Hcl (Oxycodone HCl) 15 Mg Tablet, 30 MG FT Q6H PRN for PAIN, (Reported) Allergies Coded Allergies: latex (Verified Allergy, Intermediate, hives, 02/23/19) GME ATTESTATION GME ATTESTATION My faculty preceptor for this patient encounter was physically present during the encounter and was fully available. All aspects of the patient interview, examination, medical decision making process, and medical care plan development were reviewed and approved by the faculty preceptor. The faculty preceptor is aware and concurs with the plan as stated in the body of this note and will att est to such by his/her cosignature. KHADIJAH PETERSEN DO Apr 19, 2020 10:44
--- NOTE | 2020-04-20 04:43 | EEG ---
ELECTROENCEPHALOGRAM DATE: 04/19/2020 REFERRING PHYSICIAN: Riki Bustillo MD DIAGNOSIS: Apneic episode with elevated prolactin, rule out seizure. EEG #: [id number] HISTORY: The patient is a 69-year-old man who was admitted at [facility] and has history of squamous cell carcinoma of right tonsil, status post radiation, chemotherapy and esophageal stricture secondary to radiation. This electroencephalogram (EEG) was done to rule out epileptic potential. He is currently taking Zithromax, Eliquis, atorvastatin, etc. TECHNICAL DESCRIPTION: This digital electroencephalogram (EEG) was recorded by 21 scalp, ear and 2 electrocardiogram (EKG) electrodes and was reviewed in bipolar and referential montages following reformatting in 10-20 international electrode placement system. INTERPRETATION: The patient was noted to be in awake and drowsy states during this electroencephalogram (EEG). Background rhythm consisted of 4-5 Hz beta activity measuring 15-40 microvolts in amplitude which were symmetric and reactive to eye opening. No sleep was achieved. Hyperventilation could not be performed. Photic stimulation remained unremarkable. Electrocardiogram (EKG) revealed possible sinus rhythm and tachycardia. No focal, lateralizing or epileptiform abnormalities were seen. No relevant clinical activity was noted. CONCLUSION: This electroencephalogram (EEG) in awake and drowsy states is abnormal due to the presence of generalized slowing and disorganization of background consistent with nonspecific diffuse cerebral dysfunction such as seen in encephalopathy due to multiple potential causes. No epileptiform abnormalities were seen. Clinical correlation is recommended.
--- NOTE | 2020-04-23 09:32 | NOCOX ---
NOCTURNAL OXIMETRY STUDY DATE: 04/18/2020 Study was performed on two liters nasal cannula oxygen. The total valid sampling time was approximately 7 hours. Patient's heart rate ranged from 131-61 and the oxygen saturation ranged from 100% to the lowest of 81%. The total time spent with a SpO2 of less than 88% was 2 minutes and 12 seconds. Graphically, the patient did have a few episodic desaturations with associated heart rate variability noted towards the end of the night/maxillofacial prosthodontist. IMPRESSION: On two liters nasal cannula oxygen supplementation overnight patient did not have any significant desaturation noted. There were a few episodes graphically of periodic desaturation with associated heart rate variability. Cannot rule out sleep disorder breathing. Would consider more formal sleep testing if clinically indicated.
== END 2020-04-19 17:40 | disposition home health service (06) | DRG 190 ==
LOC: M ED 10:42 → M ED INP 10:43 → M MS5PR 18:10 → M PCU 04-17 09:55 → OBSVTOIN 04-17 18:44
PROVIDERS: ADMIT Internal Medicine; ATTEND Internal Medicine
DX: J44.1 Chronic obstructive pulmonary disease with (acute) exacerbation (principal); J96.21 Acute and chronic respiratory failure with hypoxia; E87.2 Acidosis; J38.5 Laryngeal spasm; E03.9 Hypothyroidism, unspecified; E78.5 Hyperlipidemia, unspecified; Z86.711 Personal history of pulmonary embolism; H61.22 Impacted cerumen, left ear; L03.032 Cellulitis of left toe; Z85.828 Personal history of other malignant neoplasm of skin; Z79.01 Long term (current) use of anticoagulants; I25.10 Atherosclerotic heart disease of native coronary artery without angina pectoris; M19.90 Unspecified osteoarthritis, unspecified site; Z87.891 Personal history of nicotine dependence; Z91.040 Latex allergy status; Z79.899 Other long term (current) drug therapy; I25.2 Old myocardial infarction

== ENCOUNTER 2020-05-01 19:35 | Inpatient (IN) | payer MEDICARE, MEDICAID ==
[~2020-05-01] VITALS: Ht 170.2 cm; Wt 85.5 kg
[2020-05-01] MEDS ORDERED: ETOMIDATE INJ 20MG/10ML VIAL IV STA (20:01)
[2020-05-01] MEDS ORDERED: SUCCINYLCHOLINE INJ 200 MG/10 ML VIAL (J0330) IV STA (20:01)
[2020-05-01] MEDS ORDERED: ROCURONIUM BROMIDE 50 MG/5 ML VIAL IV STA ×2 (20:01→20:04)
[2020-05-01 20:36] LABS: BASO # 0.1 10^3/uL (0.0-0.2); BASO % 0.8 % (0.0-1.0); EOS # 0.2 10^3/uL (0.0-0.5); EOS % 3.1 % (0.0-3.0); HEMATOCRIT 40.1 % (42.0-52.0); HEMOGLOBIN 11.3 g/dl (13.5-17.5); LYMPH # 1.1 10^3/uL (1.5-5.0); MEAN CORPUSCULAR HEMOGLOBIN 30.1 pg (27.0-33.0); MEAN CORPUSCULAR HGB CONC 28.2 g/dl (32.0-36.5); MEAN CORPUSCULAR VOLUME 106.6 fl (80.0-96.0); MONO # 0.5 10^3/uL (0.0-0.8); MONO % 8.3 % (0.0-5.0); NEUTROPHILS # 4.3 10^3/uL (1.5-8.5); NEUTROPHILS % 69.5 % (36.0-66.0); PLATELET COUNT, AUTOMATED 168 10^3/uL (150-450); RED BLOOD COUNT 3.76 10^6/uL (4.30-6.10); WHITE BLOOD COUNT 6.1 10^3/uL (4.0-10.0)
--- NOTE | 2020-05-01 20:40 | REPVR ---
PROCEDURE INFORMATION: Exam: XR Chest, 1 View Exam date and time: 05/01/2020 8:14 PM Age: 69 years old Clinical indication: Device placement; Other: Post intubation TECHNIQUE: Imaging protocol: XR of the chest Views: 1 view. COMPARISON: CR PORTABLE CHEST X-RAY 04/17/2020 10:18 PM FINDINGS: Tubes, catheters and devices: Tip of endotracheal tube located 6.4 cm proximal to the robson. Lungs: No lobar or segmental infiltrates. Pleural space: Unremarkable. No pleural effusion. No pneumothorax. Heart/Mediastinum: Unremarkable. No cardiomegaly. Diaphragm: Elevated right hemidiaphragm. Bones/joints: Unremarkable. IMPRESSION: No acute findings. Electronically signed by: David Cannon On 05/01/2020 20:40:48 PM
[2020-05-01 20:46] LABS: ALBUMIN 2.5 GM/DL (3.2-5.2); BILIRUBIN,DIRECT 0.1 MG/DL (0.0-0.2); BILIRUBIN,TOTAL 0.1 MG/DL (0.2-1.0); TOTAL PROTEIN 6.1 GM/DL (6.4-8.2)
[2020-05-01] MEDS ORDERED: MIDAZOLAM 5MG/ML 1ML VIAL (J2250 PER 1MG) As Ordered ONE (21:23)
[2020-05-01] MEDS ORDERED: MIDAZOLAM INJ 2MG/2ML VIAL (J2250 PER 1MG) IV ONE (21:30)
[2020-05-01] MEDS ORDERED: PIPERACILLIN/TAZOBACTAM SOD 3.375 GM in D5W MINI-BAG PLUS 50 ML IV ONE (21:30)
[2020-05-01] MEDS ORDERED: PATIENT COMMENT (21:41)
[2020-05-01] MEDS ORDERED: NYST10CR EXT (21:41)
[2020-05-01] MEDS ORDERED: ALBU83IN INH (21:41)
[2020-05-01] MEDS ORDERED: BOUDPST TOP (21:41)
[2020-05-01] MEDS ORDERED: LEXA1TAB FT (21:41)
[2020-05-01] MEDS ORDERED: ADVA115A INH (21:41)
[2020-05-01] MEDS ORDERED: MIDAZOLAM INJ 2MG/2ML VIAL (J2250 PER 1MG) IV PRN (22:00)
[2020-05-01 22:01] LABS: THYROID STIMULATING HORMONE 1.89 uIU/ML (0.358-3.740)
[2020-05-01 22:06] LABS: AMPHETAMINES LEVEL URINE NEGATIVE (NEGATIVE); BARBITURATES URINE NEGATIVE (NEGATIVE); BENZODIAZEPINES URINE POSITIVE (NEGATIVE); CANNABINOIDS URINE POSITIVE (NEGATIVE); COCAINE METABOLITE URINE NEGATIVE (NEGATIVE); METHADONE URINE NEGATIVE (NEGATIVE); OPIATES URINE POSITIVE (NEGATIVE); PHENCYCLIDINE URINE NEGATIVE (NEGATIVE)
--- NOTE | 2020-05-01 22:10 | REPVR ---
PROCEDURE INFORMATION: Exam: CT Head without Contrast Exam date and time: 05/01/20 (9:30pm) Age: 69 years old Clinical indication: Altered mental status / memory loss TECHNIQUE: Imaging protocol: Computed tomography of the head without contrast. Radiation optimization: All CT scans at this facility use at least one of these dose optimization techniques: automated exposure control; mA and/or kV adjustment per patient size (includes targeted exams where dose is matched to clinical indication); or iterative reconstruction. COMPARISON: CT HEAD of 07/15/17 FINDINGS: Brain: No acute hemorrhage. No cerebral edema. No mass effect. Age-related atrophic changes are noted. Periventricular and subcortical areas of low attenuation, compatible with chronic small vessel microischemic changes. Cerebral ventricles: No ventriculomegaly. Bones/joints: Unremarkable. No acute fracture. Paranasal sinuses: No air-fluid levels. Bilateral ethmoid sinus membrane thickening. Some nasal congestion. Mastoid air cells: Visualized mastoid air cells are well aerated. Soft tissues: Unremarkable. IMPRESSION: No acute intracranial pathology is appreciated. Chronic atrophic and microischemic changes. Some progression of atrophy since July 2017. Electronically signed by: Amita Cardenas On 05/01/2020 22:10:47 PM
--- NOTE | 2020-05-01 23:07 | ECGEPIP ---
[facility] - ED Test Date: 2020-05-01 Pat Name: JERZY GAVIN Department: Room: - Gender: Male [facility] Counselor: HAYLEY : 1950 Requested By: Michael Pino Order Number: [id number] Reading MD: Michael Watkins Measurements Intervals [place] Rate: 61 P: 57 MT: 156 QRS: 22 QRSD: 90 T: 43 QT: 445 QTc: 451 Interpretive Statements SINUS RHYTHM NSTTW ABNORMALITY(S) Electronically Signed on 05-01-2020 23:06:58 EST by Michael Watkins
[2020-05-01 23:46] VITALS: BP 133/60
[2020-05-02] VITALS (17 sets, daily range): BP systolic 82–151; BP diastolic 51–97; O2SAT 98
[2020-05-02] MEDS ORDERED: ROCURONIUM BROMIDE 50 MG/5 ML VIAL ONE (00:45)
[2020-05-02] MEDS ORDERED: SUCCINYLCHOLINE 100 MG/5 ML SYRINGE (J0330) ONE (00:45)
[2020-05-02] MEDS ORDERED: ETOMIDATE INJ 20MG/10ML VIAL ONE (00:45)
[2020-05-02 05:41] LABS: HEMATOCRIT 39.7 % (42.0-52.0); HEMOGLOBIN 11.9 g/dl (13.5-17.5); MEAN CORPUSCULAR HEMOGLOBIN 30.1 pg (27.0-33.0); MEAN CORPUSCULAR VOLUME 100.5 fl (80.0-96.0); PLATELET COUNT, AUTOMATED 123 10^3/uL (150-450); RED BLOOD COUNT 3.95 10^6/uL (4.30-6.10); WHITE BLOOD COUNT 8.1 10^3/uL (4.0-10.0)
[2020-05-02 05:59] LABS: ABG BASE EXCESS 11.6 (-2.0-2.0); ABG HCO3 34.7 MEQ/L (22.0-26.0); ABG O2 SATURATION 95.9 % (95.0-99.0); ABG PARTIAL PRESSURE CO2 39.4 mmHg (35.0-45.0); ABG STANDARD HCO3 35.4 MEQ/L (22.0-26.0); ABG TOTAL CO2 35.9 MEQ/L (23.0-31.0); ABG pH (ARTERIAL) 7.563 UNITS (7.350-7.450)
[2020-05-02 06:00] LABS: ALBUMIN 2.1 GM/DL (3.2-5.2); ALT/SGPT 49 U/L (12-78); BILIRUBIN,TOTAL 0.7 MG/DL (0.2-1.0); BLOOD UREA NITROGEN 18 MG/DL (7-18); CALCIUM LEVEL 8.2 MG/DL (8.8-10.2); CARBON DIOXIDE LEVEL 36 MEQ/L (21-32); CHLORIDE LEVEL 103 MEQ/L (98-107); CREATININE FOR GFR 0.85 MG/DL (0.70-1.30); GLOMERULAR FILTRATION RATE > 60.0 (>49); GLUCOSE, FASTING 92 MG/DL (70-100); POTASSIUM SERUM 3.5 MEQ/L (3.5-5.1); SODIUM LEVEL 140 MEQ/L (136-145); TOTAL PROTEIN 5.8 GM/DL (6.4-8.2)
[2020-05-02] MEDS: MORPHINE 2 MG/ML 1ML VIAL (J2270) IV PRN ×3 (07:19→10:38)
[2020-05-02] MEDS: ALBUTEROL SULFATE 2.5 MG/0.5 ML INH NEB SOLN NEB SCH ×2 (07:48→11:39)
--- NOTE | 2020-05-02 08:16 | REP ---
INDICATION: RESPIRATORY FAILURE COMPARISON: 05/01/2020 TECHNIQUE: Portable AP view of the chest FINDINGS: Endotracheal tube approximately 3 cm above the robson. Nasogastric tube courses below left hemidiaphragm. The mediastinum and cardiac silhouette are stable and within normal limits for portable technique. The lung chaidez demonstrate lower lobe consolidations along with small pleural effusions (right greater than left). No pneumothorax. Skeletal structures are intact. IMPRESSION: 1. Lines and tubes in satisfactory position. 2. Lower lobe opacities suggesting areas of consolidation and small pleural effusions. <Electronically signed by Meir Dominguez > 05/02/20 [id number]
--- NOTE | 2020-05-02 08:51 | CCN ---
CRITICAL CARE HISTORY AND PHYSICAL DATE: 05/01/2020 CRITICAL CARE TIME: One hour and 22 minutes. This excludes all procedures. HISTORY OF PRESENT ILLNESS: I was called urgently to the emergency room to help at bedside. By the lio I got there, the patient had been intubated. There was difficulty with intubation due to stenosis. 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 The patient had presented unresponsive brought in by ambulance. There was no history with the patient. Apparently he lives alone. Brought in unresponsive by EMS, EMS had sonorous respirations, claimed to have a GCS of 3. Intubated and then, I was called emergently to the ER so workup was still underway. He had no evidence of arrhythmias. He did receive 1 liter of IV fluids in the ER for some mild hypotension. He is actually on the hypertensive side now. PAST MEDICAL HISTORY: According to the chart. 1. Esophageal stricture from history of tonsillar cancer head and neck radiation. 2. Recurrent aspiration pneumonia. 3. Chronically elevated right hemidiaphragm. 4. Hypothyroidism. 5. Hyperlipidemia. 6. Multiple admissions for COPD exacerbations with chronic emphysema. 7. Anxiety. 8. Chronic anemia. 9. Osteoarthritis. 10. ESBL around his PEG tube site. 11. Pulmonary embolism on chronic Eliquis. SOCIAL HISTORY: Unavailable. FAMILY HISTORY: Unavailable. REVIEW OF SYSTEMS: Unavailable. HOME MEDICATIONS: - nebulized Albuterol - atorvastatin - Eliquis - Lexapro 10 mg p.o. daily - Advair HFA 115/21 inhaled b.i.d. - Levothyroxine 100 mcg per feeding tube daily - statin p.r.n. - oxycodone 15 mg tabs a total of 30 mg every 6 hours p.r.n. - zinc oxide applied around PEG tube site PHYSICAL EXAMINATION: GENERAL: The patient is not responsive. Did receive RSI. VITAL SIGNS: Temperature is 98.8, pulse 82, respiratory rate 12, blood pressure 105/62 with an oxygen saturation of 96% on 0.50 FiO2. HEENT: Pupils are pinpoint and nonreactive. Mucous membranes are moist. Tongue is midline. NECK: Significantly hardened from radiation. Significant radiation skin changes. Neck and soft tissue changes. I have difficulty even opening his mouth. LYMPH: No palpable supraclavicular, cervical, or axillary lymphadenopathy. CARDIAC: Tachycardic S1, S2 without audible murmur, rub, or gallop. He is anasarcic with pitting edema even in his abdomen and his hips. PULMONARY: Decreased breath sounds throughout especially at the right base. No rales, rhonchi, or wheezes. There is prolongation of expiratory phase. He is doing well on mechanically ventilation with an oxygen saturation of 96%. ABDOMEN: Soft. PEG tube has surrounding erythema and serosanguineous drainage. No pus, but appear erythematous. No exudate on palpation around the tube. There is urine output in the catheter. EXTREMITIES: Again significant pitting edema, anasarca almost. SKIN: No cyanosis or clubbing. Skin is pale without rash, jaundice, or bruising. LABORATORY EVALUATION: Shows white count of 6.1, hemoglobin of 11.3, platelet count of 168,000. Sodium 138, potassium 4.1, chloride 99, bicarb 37, BUN 26, creatinine 0.84 with a glucose of 149. Arterial blood gas was drawn after the patient was intubated and on ventilation for some time. Arterial blood gas shows a pH of 7.30, pCO2 of 85, pO2 of 190. Troponin is low at 0.01. Albumin is low. IMAGING: Chest x-ray shows an elevated right hemidiaphragm, which is chronic encephalization. I did review a recent CT angiogram also from his recent admission 04/16/2020, which again shows a chronic elevated right hemidiaphragm without any other abnormalities. EKG showed a normal sinus rhythm with a acute ST abnormality. Head CT is still pending. IMPRESSION: 1. Respiratory failure. My best suspicion is that of chronic obstructive pulmonary disease with hypercapnic respiratory failure. He is also on narcotics that can precipitate this. We will continue to watch for neurologic improvement. He is anasarcic. As outlined below, congestive heart failure may have contributed to this so therefore, echocardiogram is being performed. Based on his blood pressure, we will attempt diuresis as allowed. 2. Emphysema severe in nature. Appears that he has had chronic CO2 retention. Bicarb is up showing chronic hypercarbic respiratory failure now likely with acute on chronic hypercarbic respiratory failure. We will ensure treatment with inhalers once the patient is extubated. Currently will have rescue therapy. He does not have any bronchospasm and therefore, I am not initiating any steroids at this point in time. I suspect this is an acute exacerbation of a chronic problem. 3. Percutaneous endoscopic gastrostomy tube (PEG) with surrounding erythema and serosanguineous drainage. Has a history of extended-spectrum beta-lactamase (ESBL) around the PEG tube site. Therefore, I have started Zosyn. 4. Anasarca. I have checked TSH because he has a history of hypothyroidism. Also checking echocardiogram. May simply be due to the severity of his pulmonary hypertension due to his lung disease. However, will need to complete this workup. 5. Altered mental status. Possibly from hypercarbia. Head CT is still pending. Reported history on prior EEG last hospitalization as the patient had encephalopathy. Urine toxicology is also pending. There may be drug effect from narcotics. 6. Protein malnourishment. Albumin is only 2.5. We will start tube feeds tomorrow as long as there is no contraindication. 7. Deep vein thrombosis (DVT) prophylaxis with Lovenox. 8. Gastrointestinal (GI) prophylaxis with Protonix. Critical care time as mentioned above; this excludes all procedures.
[2020-05-02] MEDS ORDERED: PANTOPRAZOLE 40MG VIAL (C9113 PER 1) IV SCH (09:00)
[2020-05-02] MEDS ORDERED: PIPERACILLIN/TAZOBACTAM SOD 3.375 GM in D5W MINI-BAG PLUS 50 ML IV SCH (09:00)
[2020-05-02] MEDS ORDERED: CHLORHEXIDINE GLUCONATE 0.12 % 15ML UDC (PERIDEX ORAL RINSE) MT SCH (09:00)
[2020-05-02] MEDS ORDERED: ENOXAPARIN 40MG/0.4ML SYRINGE (J1650 PER 10MG) SC SCH (09:00)
--- NOTE | 2020-05-02 09:23 | CCN ---
CRITICAL CARE NOTE DATE: 05/02/2020 CRITICAL CARE TIME: One hour and 4 minutes; this excludes all procedures. SUBJECTIVE: The patient is awake this morning indicating that he does not want the tube. When I asked him would he want to remain intubated if he could not breathe on his, he said no, and he understands he could . He actually has a DNR that we found; therefore, we will proceed with extubation and not re-intubate. The suspicion is that the patient had CO2 retention from hypercarbic respiratory failure secondary to his advanced COPD. However, he does have anasarca, which can be from pulmonary hypertension. Echocardiogram is being performed. At bedside, it looks like his LV function is at least decent; however, it has not been read by cardiology as of yet. Unfortunately, my TSH order was cancelled; I am not sure the reason why this was cancelled, but it was reordered again. Pressure is a little soft, but otherwise no evidence of sepsis. He did receive Zosyn for his PEG tube abnormalities. The nurse states she did express pus from the area this morning. OBJECTIVE: VITAL SIGNS: Temperature 96.3 with a max of 100.6, pulse of 74, respiratory rate of 20, blood pressure is 105/69 with an oxygen saturation of 93% on 0.[address]. [address] the patient on a spontaneous breathing trial 09/12, he did desat to 88% on 0.45; however, it is his wishes to come off the ventilator and he has prior documentation that he does not want resuscitation and therefore, his wishes should be respected. GENERAL: Awake and able to answer yes and no questions. HEENT: Sclerae clear, anicteric. Pupils 4-5 mm and reactive. Mucous membranes are moist. Tongue is midline. NECK: Significantly hardened from prior radiation. LYMPH: No cervical, supraclavicular, or axillary adenopathy. CARDIAC: Regular S1, S2 without audible murmur, rub, or gallop. No discernable elevated JVP, but he does have significant anasarca pitting edema to the thigh, hip, and abdomen. PULMONARY: Decreased breath sounds throughout with some prolongation of expiratory phase and occasional rhonchi that clear with suctioning. No wheeze. ABDOMEN: Soft, nontender, and nondistended. PEG tube with surrounding erythema. EXTREMITIES: Positive significant edema. No cyanosis. No clubbing. SKIN: Pale without rash, jaundice, or bruising. LABORATORY EVALUATION: Shows a white blood cell count of 8.1, hemoglobin of 11.9, hematocrit of 39.7 with a platelet count of 123,000. Arterial blood gas shows a pH of 7.56, pCO2 of 39, pO2 of 69. Chemistries show a sodium of 140, potassium 3.5, chloride 103, bicarb 36, BUN 18, creatinine 0.85, calcium of 8.2 with an albumin of 2.1. Toxicology screen is positive for opiates, benzodiazepine, and cannabinoids. Blood cultures and urine cultures are pending. IMAGING: Head CT shows no acute intracranial pathology, but there are chronic atrophic changes and micro-ischemic changes with some progression of the atrophy since 07/2017. Chest x-ray this morning shows the endotracheal tube is high; much higher than is documented by the radiologist, approximately 5 cm above the robson. There is a chronic right elevated hemidiaphragm. There appears to be less vascular congestion; however, this is more penetrated. IMPRESSION: 1. Respiratory failure likely from chronic obstructive pulmonary disease (COPD) exacerbation with recurrent COPD exacerbations recently. The patient likely has limited lifespan from the severity of his COPD. Once extubated, will convert to inhaled therapy. Will have a discussion whether he wants noninvasive therapy. 2. Anasarca. Suspect due to pulmonary hypertension. Possibly secondary to thyroid disease. He does have known hypothyroidism and it is not clear that he has been taking his medication and therefore, TSH is vital to his evaluation. Not sure why this was discontinued by the lab. 3. Deep vein thrombosis (DVT) prophylaxis on Lovenox and gastrointestinal (GI) prophylaxis on Protonix. ADVANCED DIRECTIVES: The patient is DO NOT RESUSCITATE (DNR). We are going to extubate and not re-intubate today. We will have discussions after extubation to see if he wants noninvasive therapy.
[2020-05-02 10:25] LABS: THYROID STIMULATING HORMONE 0.632 uIU/ML (0.358-3.740)
[2020-05-02] MEDS ORDERED: LORazepam 2 MG/ML VIAL IV PRN (11:00)
--- NOTE | 2020-05-02 12:00 | CCN ---
CRITICAL CARE ADDENDUM DATE: 05/02/2020 After extubation, the patient was not doing well. He had some upper airway stridor and some hypoxia. He indicated he wanted to be just kept comfortable. He did not want any aggressive measures and wanted to be converted to comfort measures only. I communicated this with his niece, who is his health care proxy. She agreed that he has been suffering for some time and that he should be converted to comfort measures. Therefore, I have placed a DNR and converted the patient to comfort measures.
[2020-05-02] MEDS ORDERED: CHARCOAL ACTIVATED LIQUID 25 GM/120 ML BTL PO ONE (14:15)
--- NOTE | 2020-05-02 14:40 | DSES ---
DISCHARGE SUMMARY DATE OF ADMISSION: 05/01/2020 DATE OF DISCHARGE: 05/02/2020 Patient at 11:40 a.m. Mr. Araiza had a history of significant chronic obstructive pulmonary disease with recent recurrent admissions. 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 Presented to the emergency room yesterday with respiratory failure, most likely chronic obstructive pulmonary disease (COPD) exacerbation due to hypercarbic respiratory failure. In the morning he awoke. He stated that he did not want the tube when he was able to communicate effectively despite having the endotracheal tube in place. He stated that he would not want to put it back in after it was removed, even if he needed it to save his life. After extubation, he stated that he just wanted to be kept comfortable. He had significant respiratory distress and shortly after extubation. His healthcare proxy was contacted prior to his , and she agreed that he had gone through quite a bit, and he would have wanted comfort measures, so that is consistent with his previously expressed wishes. The patient in the intensive care unit (ICU). DISCHARGE DIAGNOSES: 1. Respiratory failure, hypercarbic secondary to chronic obstructive pulmonary disease. 2. 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 3. 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 4. History of recurrent aspiration pneumonia. 5. Chronically elevated right hemidiaphragm. 6. Hypothyroidism. 7. Hyperlipidemia. 8. Anxiety. 9. Chronic anemia. 10. Osteoarthritis. 11. Anasarca. 12. History of extended spectrum beta-lactamase (ESBL) percutaneous endoscopic gastrostomy tube infection. 13. Pulmonary embolism, on anticoagulation. Patient's family were able to get to the bedside prior to his . No autopsy was requested.
--- NOTE | 2020-05-03 12:33 | ECHO ---
DATE OF PROCEDURE: 05/02/2020 Age: Male Gender: 69 Height: 67 inches Weight: 185 pounds REFERRING PHYSICIAN: Todd Blackwood D.O. INDICATION: Acute respiratory failure, localized edema unspecified. MEASUREMENTS: 2D Measurements: Aortic root 4.1 cm Left atrium 3.5 cm Intraventricular septum 0.98 cm Posterior wall 1.02 cm Left ventricle diastole 4.8 cm Doppler Measurements: No aortic stenosis No aortic regurgitation Aortic valve velocity 137 cm/s LVOT velocity 121 cm/s LVOT VTI 21.4 cm No mitral regurgitation No mitral stenosis Mitral E velocity 66.1 cm/s Mitral A velocity 72.1 cm/s Mitral deceleration time 230 msec Very mild tricuspid regurgitation Estimated right ventricular systolic pressure 46-51 mmHg Estimated right atrial pressure 5-10 mmHg No pulmonic regurgitation MITRAL ANNULAR TISSUE DOPPLER E prime septal 6.2 cm/s, E prime lateral 8.5 cm/s DESCRIPTION: Rhythm was sinus. This was a moderately technically difficult echocardiogram. No subcostal window or aortic arch window available (technically difficult). This was a 2D, M-mode, color flow Doppler, and pulsed wave Doppler examination including mitral annular tissue Doppler. CONCLUSIONS: * Normal left ventricle internal dimensions and wall thickness. Normal regional LV wall motion with hyperdynamic contraction. Hyperdynamic LV systolic function. LVEF of 75% by visual estimate. Grade 1 LV diastolic dysfunction. * Suggestive of moderate elevation of estimated right ventricle systolic pressure (46-51 mmHg), assuming a normal central venous pressure of 5-10 mmHg. Very mild tricuspid regurgitation. Hyperdynamic right ventricle systolic function. * Mild dilatation of the aortic root at the level of the sinus of Valsalva. * No pericardial effusion. * Moderately technically difficult echocardiogram. [facility]
--- NOTE | 2020-05-15 09:03 | DSES ---
DISCHARGE SUMMARY ADDENDUM DATE OF ADMISSION: 05/01/2020 DATE OF DISCHARGE: 05/02/2020 ADD: Patient had metabolic encephalopathy likely secondary to hypercarbic respiratory failure.
== END 2020-05-02 11:44 | disposition expired | DRG 208 ==
LOC: M ED 19:35 → M ED INP 21:18 → M PCU 23:51
PROVIDERS: ADMIT Internal Medicine Pulmonary Disease; ATTEND Internal Medicine
PROC: 5A1935Z Respiratory Ventilation, Less than 24 Consecutive Hours (ICD-10-PCS; principal; 2020-05-01)
DX: J44.1 Chronic obstructive pulmonary disease with (acute) exacerbation (principal); G93.41 Metabolic encephalopathy; J96.22 Acute and chronic respiratory failure with hypercapnia; E46 Unspecified protein-calorie malnutrition; R60.1 Generalized edema; I27.20 Pulmonary hypertension, unspecified; J39.8 Other specified diseases of upper respiratory tract; K22.2 Esophageal obstruction; D64.9 Anemia, unspecified; Z51.5 Encounter for palliative care; E03.9 Hypothyroidism, unspecified; Z93.1 Gastrostomy status; E78.5 Hyperlipidemia, unspecified; F41.9 Anxiety disorder, unspecified; M19.90 Unspecified osteoarthritis, unspecified site; Z79.01 Long term (current) use of anticoagulants